=== PATIENT | female | born 1955 | race Caucasian/White ===

== ENCOUNTER 2017-11-25 18:41 | Inpatient (IN) | payer OTHER ==
[2017-11-25] MEDS ORDERED: NS 0.9% 1000 ML* 1,000 ML IV ONE (20:24)
--- NOTE | 2017-11-25 21:17 | RAD ---
Indication: Chest pain. 2 views of the chest including dual energy PA views are reviewed. Left lung field is clear. There appears to be fluid in the right fissure with a rounded mass in the right midlung field which was previously described as fluid in the major fissure. Overall this is unchanged from prior exam as well as March 22, 2013. Left lung field is clear. IMPRESSION: Right pleural effusion with right medial lung base bronchiectasis. There is loculated fluid in the major and minor fissure which has remained stable since March 22, 2013 and prior x-ray dated December 16, 2015.
[2017-11-25 22:09] LABS: ABS Basophils 0.1 10^3/ul (0-0.2); ABS Eosinophils 0 10^3/ul (0-0.6); ABS Lymphocytes 0.9 10^3/ul (1.0-4.8); ABS Monocytes 0.6 10^3/ul (0-0.8); ABS Neutrophils 6.9 10^3/ul (1.5-7.7); ABS Nucleated RBC 0 10^3/ul; Eosinophil % 0.1 % (0-6); Hematocrit 47 % (35-47); Hemoglobin 15.2 g/dl (12.0-16.0); Lymphocyte % 10.1 % (25-47); Mean Corpuscular HGB Conc 33 g/dl (31-36); Mean Corpuscular Hemoglobin 30 pg (27-31); Mean Corpuscular Volume 91 fL (80-97); Mean Platelet Volume 8.4 um3 (7.4-10.4); Nucleated Red Blood Cells % 0; Platelet Count 267 10^3/ul (150-450); Red Blood Count 5.09 10^6/ul (4.0-5.4); Red Cell Distribution Width 15 % (10.5-15); White Blood Count 8.4 10^3/ul (3.5-10.8)
--- NOTE | 2017-11-25 23:07 | ED ---
Shortness of Breath - HPI Summary HPI Summary: Complains of episode of bilateral leg weakness at the gym while warming up on a cycling machine, which brought her to the ED, and also complains of SOB at rest while here at the ED. States History of bronchitis in August with chronic but improving SOB with exertion since. States no change in Baseline chronic SOB today at gym during episode of leg weakness, but feels change in Baseline SOB while here at the ED, states SOB at rest now. Leg weakness has resolved here in the ED. Also complains of loose stools 3-4 days. Denies fever, cough , CP, sore throat, N/V, abdomen, change in urine. Med history is hypothyroid, atrial flutter, pleural fluid vision, Hodgkin's disease cleared in remission since . Nonsmoker since 2006, denies EtOH, illegal drug use. Patient on Xarelto. Denies history of blood clots, recent surgery, trauma, estrogen supplements - History of Current Complaint Chief Complaint: EDShortnessOfBreath Time Seen by Provider: 11/25/17 22:33 Hx Obtained From: Patient Onset/Duration: Sudden Onset Current Severity: Mild Dyspnea At: Rest Alleviating Factors: Bronchodilators Associated Signs & Symptoms: Negative - Risk Factors Pulmonary Embolism: Negative - Allergy/Home Medications Allergies/Adverse Reactions: Allergies Allergy/AdvReac Type Severity Reaction Status Date / Time MS Clindamycin [Clindamycin] Allergy Severe Tachycardia Verified 02/02/16 16:01 MS Dronedarone [From Multaq] Allergy Severe Anaphylatic Verified 02/02/16 16:01 Shock MS Levofloxacin Allergy Severe Itching Verified 02/02/16 16:01 [From Levaquin] MS Penicillins [PCN] Allergy Severe Airway Verified 02/02/16 16:01 Obstruction PMH/Surg Hx/FS Hx/Imm Hx Endocrine/Hematology History: Reports: Hx Thyroid Disease Cardiovascular History: Reports: Other Cardiovascular Problems/Disorders - A- flutter history of Respiratory History: Reports: Hx Pleural Effusion GI History: Reports: Hx Gastroesophageal Reflux Disease Sensory History: Reports: Hx Contacts or Glasses Opthamlomology History: Reports: Hx Contacts or Glasses Psychiatric History: Reports: Hx Post Traumatic Stress Disorder - Cancer History Cancer Type, Location and Year: hx of hodgkins lymphoma diagnosed in 1987. treated with chemo and radiation. Hx Chemotherapy: Yes Hx Radiation Therapy: Yes - Surgical History Surgery Procedure, Year, and Place: THORACOTOMY Infectious Disease History: No Infectious Disease History: Denies: Traveled Outside the [place] in Last 30 Days - Family History Known Family History: Positive: Other - Aunt/father with throat cancer - Social History Alcohol Use: None Substance Use Type: Reports: None Hx Tobacco Use: Yes Smoking Status (MU): Never Smoked Tobacco Review of Systems Constitutional: Negative Eyes: Negative ENT: Negative Cardiovascular: Negative Positive: Shortness Of Breath Gastrointestinal: Negative Genitourinary: Negative Musculoskeletal: Negative Skin: Negative Neurological: Negative Psychological: Normal All Other Systems Reviewed And Are Negative: Yes Physical Exam - Summary Physical Exam Summary: Normal neuro exam. Normal strength with flexion and extension of bilateral hips , knees, ankles Triage Information Reviewed: Yes Vital Signs On Initial Exam: Initial Vitals Temp Pulse Resp BP Pulse Ox 99.6 F 79 16 145/87 100 11/25/17 18:51 11/25/17 18:51 11/25/17 18:51 11/25/17 18:51 11/25/17 18:51 Vital Signs Reviewed: Yes Appearance: Positive: Well-Appearing Skin: Positive: Warm Head/Face: Positive: Normal Head/Face Inspection Eyes: Positive: Normal Neck: Positive: Supple Respiratory/Lung Sounds: Positive: Clear to Auscultation Cardiovascular: Positive: Normal Abdomen Description: Positive: Nontender Musculoskeletal: Positive: Normal Neurological: Positive: Normal Psychiatric: Positive: Normal AVPU Assessment: Alert - [place] Coma Scale Best Eye Response: 4 - Spontaneous Best Motor Response: 6 - Obeys Commands Best Verbal Response: 5 - Oriented Coma Scale Total: 15 Diagnostics - Vital Signs Vital Signs Temp Pulse Resp BP Pulse Ox 11/25/17 20:40 97.7 F 89 16 141/91 96 11/25/17 18:51 99.6 F 79 16 145/87 100 - Laboratory Lab Results: Lab Results 11/25/17 11/25/17 11/25/17 Range/Units 21:59 21:59 21:59 WBC 8.4 (3.5-10.8) 10^3/ul RBC 5.09 (4.0-5.4) 10^6/ul Hgb 15.2 (12.0-16.0) g/dl Hct 47 (35-47) % MCV 91 (80-97) fL MCH 30 (27-31) pg MCHC 33 (31-36) g/dl RDW 15 (10.5-15) % Plt Count 267 (150-450) 10^3/ul MPV 8.4 (7.4-10.4) um3 Neut % (Auto) 81.3 (38-83) % Lymph % (Auto) 10.1 L (25-47) % [place] % (Auto) 7.5 H (0-7) % Eos % (Auto) 0.1 (0-6) % Baso % (Auto) 1.0 (0-2) % Absolute Neuts (auto) 6.9 (1.5-7.7) 10^3/ul Absolute Lymphs (auto) 0.9 L (1.0-4.8) 10^3/ul Absolute Monos (auto) 0.6 (0-0.8) 10^3/ul Absolute Eos (auto) 0 (0-0.6) 10^3/ul Absolute Basos (auto) 0.1 (0-0.2) 10^3/ul Absolute Nucleated RBC 0 10^3/ul Nucleated RBC % 0 Sodium 135 L (139-145) mmol/L Potassium 4.3 (3.5-5.0) mmol/L Chloride 99 L (101-111) mmol/L Carbon Dioxide 27 (22-32) mmol/L Anion Gap 9 (2-11) mmol/L BUN 21 (6-24) mg/dL Creatinine 0.79 (0.51-0.95) mg/dL Est GFR ( Amer) 95.2 (>60) Est GFR (Non-Af Amer) 74.0 (>60) BUN/Creatinine Ratio 26.6 H (8-20) Glucose 153 H (70-100) mg/dL Lactic Acid 1.6 (0.5-2.0) mmol/L Calcium 9.4 (8.6-10.3) mg/dL Magnesium 2.0 (1.9-2.7) mg/dL Total Bilirubin 0.60 (0.2-1.0) mg/dL AST 29 (13-39) U/L ALT 24 (7-52) U/L Alkaline Phosphatase 25 L (34-104) U/L Troponin I 0.00 (<0.04) ng/mL Total Protein 7.4 (6.4-8.9) g/dL Albumin 4.0 (3.2-5.2) g/dL Globulin 3.4 (2-4) g/dL Albumin/Globulin Ratio 1.2 (1-3) TSH Pending Result Diagrams: 11/25/17 21:59 11/25/17 21:59 Lab Statement: Any lab studies that have been ordered have been reviewed, and results considered in the medical decision making process. - Radiology cxr Xray Interpretation: Positive (See Comments) - Stable pleural effusion right lung Radiology Interpretation Completed By: Radiologist - EKG 1 Cardiac Rate: NL EKG Rhythm: Sinus Rhythm ST Segment: Normal Ectopy: None EKG Interpretation: left bundle branch block Re-Evaluation - Re-Evaluation 1 Re-Evaluation Time: 02:12 - patient states SOB mildly improved with DuoNeb Course/Dx - Course Course Of Treatment: Patient complains of shortness of breath at rest. Patient hypoxic with PO2 of 53. O2 sats at rest still 89 after DuoNeb. Chest x-ray consistent with prior chest x-ray from 2016. Other labs unremarkable. - Diagnoses Provider Diagnoses: Hypoxia - Physician Notifications Discussed Care of Patient With: Garrison Argueta - will admit for hypoxia Time Discussed With Above Provider: 02:11 Discharge - Sign-Out/Discharge Documenting (check all that apply): Discharge/Admit/Transfer - Discharge Plan Condition: Good Disposition: ADMITTED TO [facility] Patient Education Materials: Hypoxia (ED) Referrals: Philip Chirinos MD [Primary Care Provider] - Additional Instructions: Follow-up with primary care. Return to the ED for any new or worsening symptoms - Billing Disposition and Condition Condition: GOOD Disposition: [facility] [place]
[2017-11-26] MEDS ORDERED: Furosemide IV* 10 MG/ML VIAL (40 MG) IV ONE (00:33)
[2017-11-26] MEDS ORDERED: Albuterol/Ipratropium NEB.SOL* Albuterol 2.5 MG/Ipratropium 0.5 MG 3 ML INH ONE (01:14)
[2017-11-26] MEDS ORDERED: Albuterol 2.5 MG/3 ML NEB.SOL* (0.083%) INH PRN (03:15)
[2017-11-26] MEDS ORDERED: Acetaminophen TAB* 325 MG PO PRN (03:15)
[2017-11-26 03:34] LABS: Urine Appearance Clear; Urine Blood Negative (Negative); Urine Color Straw; Urine Ketones Trace (Negative); Urine Protein Negative (Negative); Urine Specific Gravity 1.004 (1.010-1.030); Urine Urobilinogen Negative (Negative)
--- NOTE | 2017-11-26 03:45 | HP ---
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 She continued through the week with gradually worsening SOB until today when she developed SOB, BLE weakness, and shakiness after only 5 minutes at the gym during her initial warm up causing her enough concern to present for evaluation. She denies chest pain, N/V, sweats, F/C, cough, congestion, palpitations, or light-headedness. She has had loose stools over the past few days, but denies black/bloody aspect. She received an albuterol [place] in ED which helped her subjective SOB significantly, but did not alleviate her new oxygen requirement. PMedHx AFIB hypothyroidism GERD anxiety LUE lymphedema Hodgkin's lymphoma in remission Sujit's syndrome Ambulatory Orders Nursing to reconcile. Amitriptyline TAB* [Elavil TAB*] 1 mg PO BEDTIME 03/18/13 clonazePAM TAB(*) [Klonopin TAB(*)] 1 mg PO BEDTIME 03/18/13 [place]-3/Dha/Epa/Fish Oil [[place]-3 Fish Oil] 2 cap PO DAILY 04/05/13 Dofetilide CAP* [Tikosyn CAP*] 250 mcg PO BID 12/16/15 Levothyroxine TAB* [Synthroid TAB*] 75 mcg PO DAILY 12/16/15 Metoprolol Tartrate TAB* [Lopressor TAB*] 50 mg PO BID 12/16/15 Multivitamins/Minerals TAB* [Theragran/minerals TAB*] 1 tab PO DAILY 12/16/15 Rivaroxaban TAB(*) [Xarelto(*)] 15 mg PO DAILY 12/16/15 Clotrimazole 1% CREAM* [Clotrimazole 1%*] 1 applic TOPICAL BID #1 tube 02/02/16 predniSONE TAB* [Deltasone TAB*] 40 mg PO DAILY #8 tab 04/16/16 Allergies MS Dronedarone [From Multaq] Allergy (Severe, Verified 02/02/16 16:01) Anaphylatic Shock MS Penicillins [PCN] Allergy (Severe, Verified 11/26/17 03:05) Anaphylatic Shock MS Levofloxacin [From Levaquin] Allergy (Mild, Verified 11/26/17 03:05) Itching MS Clindamycin [Clindamycin] Adverse Reaction (Severe, Verified 11/26/17 03:05) Tachycardia PSurgHx L axillary lymph node excision w/ subsequent LUE lymphedema staging laparotomy appendectomy SocHx: former smoker w/ 20PYHX, rare alcohol, marijuana oil; ; full code status FamHx: positive for early onset CAD ROS: as above, otherwise reviewed and all were negative vitals: Vital Signs Temp 36.4 C 11/26/17 07:18 Pulse 88 11/26/17 07:25 Resp 15 11/26/17 07:25 BP 127/60 11/26/17 07:18 Pulse Ox 98 11/26/17 07:25 Intake & Output 11/25/17 11/25/17 11/26/17 11:59 23:59 11:59 Intake Total 0 Output Total 0 Balance 0 Weight 77.111 kg 74.117 kg Intake: Oral 0 Output: Urine 0 Other: # Bowel Movements 0 Constitutional: NAD, normally developed, overweight white female HEENM: atraumatic; sclera/conjunctiva: anicteric/clear; hearing: clinically intact; oropharynx: clear, mucosa moist Neck: soft tissue: non-tender; thyroid: normal Pulmonary: clear to auscultation bilaterally, good aeration, no accessory muscle use CV: RR/RR, normal S1S2, no carotid bruit, no jugular venous distention, 2+ B DP/ PT, trace BLE edema, chronic LUE lymphedema Abdominal: soft, non-distended, non-tender, no rebound/guarding/rigidity, normoactive bowel sounds, no hepatosplenomegaly or masses, no costovertebral angle tenderness Musculoskeletal: general: grossly intact, non-tender Integumental: normal appearance and texture of exposed skin Psychiatric orientation: AA&O to PPS affect: calm mood: cooperative eye contact: fair content: reliable responses: timely insight: good Testing: Lab Results 11/25/17 11/25/17 11/25/17 Range/Units 21:59 21:59 21:59 WBC 8.4 (3.5-10.8) 10^3/ul RBC 5.09 (4.0-5.4) 10^6/ul Hgb 15.2 (12.0-16.0) g/dl Hct 47 (35-47) % MCV 91 (80-97) fL MCH 30 (27-31) pg MCHC 33 (31-36) g/dl RDW 15 (10.5-15) % Plt Count 267 (150-450) 10^3/ul MPV 8.4 (7.4-10.4) um3 Neut % (Auto) 81.3 (38-83) % Lymph % (Auto) 10.1 L (25-47) % [place] % (Auto) 7.5 H (0-7) % Eos % (Auto) 0.1 (0-6) % Baso % (Auto) 1.0 (0-2) % Absolute Neuts (auto) 6.9 (1.5-7.7) 10^3/ul Absolute Lymphs (auto) 0.9 L (1.0-4.8) 10^3/ul Absolute Monos (auto) 0.6 (0-0.8) 10^3/ul Absolute Eos (auto) 0 (0-0.6) 10^3/ul Absolute Basos (auto) 0.1 (0-0.2) 10^3/ul Absolute Nucleated RBC 0 10^3/ul Nucleated RBC % 0 ABG pH (7.35-7.45) ABG pCO2 (35-45) mmHg ABG pO2 (80-100) mmHg ABG HCO3 (19-31) mmol/L ABG O2 Saturation (95-98) % ABG Base Excess (-2.0-2.0) Sodium 135 L (139-145) mmol/L Potassium 4.3 (3.5-5.0) mmol/L Chloride 99 L (101-111) mmol/L Carbon Dioxide 27 (22-32) mmol/L Anion Gap 9 (2-11) mmol/L BUN 21 (6-24) mg/dL Creatinine 0.79 (0.51-0.95) mg/dL Est GFR ( Amer) 95.2 (>60) Est GFR (Non-Af Amer) 74.0 (>60) BUN/Creatinine Ratio 26.6 H (8-20) Glucose 153 H (70-100) mg/dL Lactic Acid 1.6 (0.5-2.0) mmol/L Calcium 9.4 (8.6-10.3) mg/dL Magnesium 2.0 (1.9-2.7) mg/dL Total Bilirubin 0.60 (0.2-1.0) mg/dL AST 29 (13-39) U/L ALT 24 (7-52) U/L Alkaline Phosphatase 25 L (34-104) U/L Troponin I 0.00 (<0.04) ng/mL Total Protein 7.4 (6.4-8.9) g/dL Albumin 4.0 (3.2-5.2) g/dL Globulin 3.4 (2-4) g/dL Albumin/Globulin Ratio 1.2 (1-3) TSH 2.16 (0.34-5.60) mcIU/mL Urine Color Urine Appearance Urine pH (5-9) Ur Specific [place] (1.010-1.030) Urine Protein (Negative) Urine Ketones (Negative) Urine Blood (Negative) Urine Nitrate (Negative) Urine Bilirubin (Negative) Urine Urobilinogen (Negative) Ur Leukocyte Esterase (Negative) Urine Glucose (Negative) Influenza A (Rapid) (Negative) Influenza B (Rapid) (Negative) 11/26/17 11/26/17 11/26/17 Range/Units 00:55 03:26 04:28 WBC (3.5-10.8) 10^3/ul RBC (4.0-5.4) 10^6/ul Hgb (12.0-16.0) g/dl Hct (35-47) % MCV (80-97) fL MCH (27-31) pg MCHC (31-36) g/dl RDW (10.5-15) % Plt Count (150-450) 10^3/ul MPV (7.4-10.4) um3 Neut % (Auto) (38-83) % Lymph % (Auto) (25-47) % [place] % (Auto) (0-7) % Eos % (Auto) (0-6) % Baso % (Auto) (0-2) % Absolute Neuts (auto) (1.5-7.7) 10^3/ul Absolute Lymphs (auto) (1.0-4.8) 10^3/ul Absolute Monos (auto) (0-0.8) 10^3/ul Absolute Eos (auto) (0-0.6) 10^3/ul Absolute Basos (auto) (0-0.2) 10^3/ul Absolute Nucleated RBC 10^3/ul Nucleated RBC % ABG pH 7.38 (7.35-7.45) ABG pCO2 38 (35-45) mmHg ABG pO2 53 L* (80-100) mmHg ABG HCO3 22.8 (19-31) mmol/L ABG O2 Saturation 89.2 L (95-98) % ABG Base Excess -2.2 L (-2.0-2.0) Sodium (139-145) mmol/L Potassium (3.5-5.0) mmol/L Chloride (101-111) mmol/L Carbon Dioxide (22-32) mmol/L Anion Gap (2-11) mmol/L BUN (6-24) mg/dL Creatinine (0.51-0.95) mg/dL Est GFR ( Amer) (>60) Est GFR (Non-Af Amer) (>60) BUN/Creatinine Ratio (8-20) Glucose (70-100) mg/dL Lactic Acid (0.5-2.0) mmol/L Calcium (8.6-10.3) mg/dL Magnesium (1.9-2.7) mg/dL Total Bilirubin (0.2-1.0) mg/dL AST (13-39) U/L ALT (7-52) U/L Alkaline Phosphatase (34-104) U/L Troponin I (<0.04) ng/mL Total Protein (6.4-8.9) g/dL Albumin (3.2-5.2) g/dL Globulin (2-4) g/dL Albumin/Globulin Ratio (1-3) TSH (0.34-5.60) mcIU/mL Urine Color Straw Urine Appearance Clear Urine pH 6.0 (5-9) Ur Specific [place] 1.004 L (1.010-1.030) Urine Protein Negative (Negative) Urine Ketones Trace A (Negative) Urine Blood Negative (Negative) Urine Nitrate Negative (Negative) Urine Bilirubin Negative (Negative) Urine Urobilinogen Negative (Negative) Ur Leukocyte Esterase Negative (Negative) Urine Glucose Negative (Negative) Influenza A (Rapid) Negative (Negative) Influenza B (Rapid) Negative (Negative) ECG, personally reviewed: sinus LBBB rate 79 CXR, personally reviewed: IMPRESSION: Right pleural effusion with right medial lung base bronchiectasis. There is loculated fluid in the major and minor fissure which has remained stable since March 22, 2013 and prior x-ray dated December 16, 2015. Impression: 62F presenting with acute hypoxyic respiratory failure suspected to be multifactorial 2nd mild undiagnosed COPD & HX radiation for Hodgkin's lymphoma DIAGNOSIS & PLAN Primary acute hypoxic respiratory failure, suspect mild undiagnosed COPD : albuterol : mometasone/formoterol : tiotropium : IV methylprednisolone : supplemental oxygen : supportive care Secondary AFIB : review meds once reconciled : continue rivaroxaban once reconciled hypothyroidism : review meds once reconciled GERD : review meds once reconciled anxiety : review meds once reconciled Hodgkin's lymphoma in remission w/ 2nd LUE lymphedema & Sujit's syndrome : no acute issues Admission Rational: inpatient for acute hypoxic respiratory failure of uncertain etiology; inappropriate for outpatient setting DVTp: continue rivaroxaban once reconciled Code Status: full HCP: [email or web address]
[2017-11-26] MEDS ORDERED: Ondansetron ODT TAB* 4 MG PO PRN (04:26)
[2017-11-26] MEDS ORDERED: CMCS: Melatonin (NF) 3 MG TAB PO PRN (04:26)
[2017-11-26] MEDS ORDERED: methylPREDNISolone 125 MG* 2 ML VIAL IV ONE (04:26)
[2017-11-26] MEDS: clonazePAM TAB(*) 1 MG PO SCH ×2 (07:09→23:51)
[2017-11-26] MEDS: Omeprazole CAP* 20 MG PO SCH (07:16)
[2017-11-26] MEDS: Levothyroxine TAB* 75 MCG TAB PO SCH (07:16)
[2017-11-26] MEDS: Albuterol 2.5 MG/3 ML NEB.SOL* (0.083%) INH SCH ×3 (07:24→21:30)
[2017-11-26] MEDS: NS 0.9% 1000 ML* 1,000 ML IV SCH (07:31)
[2017-11-26 08:23] LABS: ABS Basophils 0.1 10^3/ul (0-0.2); ABS Eosinophils 0 10^3/ul (0-0.6); ABS Lymphocytes 0.6 10^3/ul (1.0-4.8); ABS Monocytes 0.3 10^3/ul (0-0.8); ABS Neutrophils 11.1 10^3/ul (1.5-7.7); ABS Nucleated RBC 0 10^3/ul; Eosinophil % 0 % (0-6); Hematocrit 49 % (35-47); Hemoglobin 16.1 g/dl (12.0-16.0); Lymphocyte % 4.7 % (25-47); Mean Corpuscular HGB Conc 33 g/dl (31-36); Mean Corpuscular Hemoglobin 30 pg (27-31); Mean Corpuscular Volume 91 fL (80-97); Mean Platelet Volume 8.3 um3 (7.4-10.4); Nucleated Red Blood Cells % 0; Platelet Count 284 10^3/ul (150-450); Red Blood Count 5.32 10^6/ul (4.0-5.4); Red Cell Distribution Width 15 % (10.5-15)
[2017-11-26 08:29] LABS: EGFR Non-African American 86.5 (>60)
[2017-11-26] MEDS: Tiotropium CAP.INH* CAP.INH/18 MCG (USE ORDER SET !) INH SCH (08:40)
[2017-11-26] MEDS: Mometasone/Formoter 200/5 MDI INH SCH ×2 (08:41→21:31)
[2017-11-26] MEDS ORDERED: Spiriva Inhaler DEVICE* 1 EACH DEVICE INH ONE (09:00)
[2017-11-26] MEDS: Dofetilide CAP* 250 MCG PO SCH ×2 (09:57→23:15)
[2017-11-26] MEDS: Metoprolol Tartrate TAB* 50 mg PO SCH ×2 (09:57→22:33)
[2017-11-26] MEDS: Docusate CAP* 100 MG PO SCH ×2 (09:57→23:17)
[2017-11-26] MEDS: Rivaroxaban TAB(*) 15 MG PO SCH (09:57)
--- NOTE | 2017-11-26 11:14 | PN ---
Subjective Date of Service: 11/26/17 Interval History: Patient seen and examined. States she feels her breathing is better today, remains on oxygen and unable to wean. Denies chest pain, no n/v, no fever or headache. Objective Active Medications: Acetaminophen (Tylenol Tab*) 650 mg PO Q6H PRN PRN Reason: FEVER/PAIN Albuterol (Ventolin 2.5 Mg/3 Ml Neb.Rose*) 2.5 mg INH Q2H PRN PRN Reason: SOB/WHEEZING Albuterol (Ventolin 2.5 Mg/3 Ml Neb.Rose*) 2.5 mg INH [id number] AWAKE [facility] Last Admin: 11/26/17 07:24 Dose: 2.5 mg Amitriptyline HCl (Elavil Tab*) 1 mg PO BEDTIME ÁLVARO Clonazepam (Klonopin Tab(*)) 1 mg PO BEDTIME [facility] Last Admin: 11/26/17 07:09 Dose: Not Given Docusate Sodium (Colace Cap*) 200 mg PO BID [facility] Last Admin: 11/26/17 09:57 Dose: Not Given Dofetilide (Tikosyn Cap*) 250 mcg PO BID [facility] Last Admin: 11/26/17 09:57 Dose: Not Given Sodium Chloride (Ns 0.9% 1000 Ml*) 1,000 mls @ 50 mls/hr IV PER RATE [facility] Last Admin: 11/26/17 07:31 Dose: 50 mls/hr Levothyroxine Sodium (Synthroid Tab*) 75 mcg PO 0600 [facility] Last Admin: 11/26/17 07:16 Dose: 75 mcg Melatonin (Melatonin (Nf)) 3 mg PO BEDTIME PRN; Protocol PRN Reason: Sleep Methylprednisolone Sodium Succinate (Solu-Medrol 40 Mg) 40 mg IV Q8H [facility] Metoprolol Tartrate (Lopressor Tab*) 50 mg PO BID [facility] Last Admin: 11/26/17 09:57 Dose: Not Given Mometasone Furoate/Formoterol Fumar (Dulera 200/5 Mdi*) 2 puff INH BID [facility] Last Admin: 11/26/17 08:41 Dose: 2 puff Omeprazole (Prilosec Cap*) 20 mg PO DAILY@0600 [facility] Last Admin: 11/26/17 07:16 Dose: 20 mg Ondansetron HCl (Zofran Odt Tab*) 4 mg PO Q6H PRN PRN Reason: n/v Rivaroxaban (Xarelto(*)) 15 mg PO DAILY [facility] Last Admin: 11/26/17 09:57 Dose: 15 mg Tiotropium [place] (Spiriva Cap.Inh*) 1 cap INH DAILY [facility] Last Admin: 11/26/17 08:40 Dose: 1 cap Vital Signs - 8 hr 11/26/17 11/26/17 11/26/17 04:00 04:56 05:23 Temperature 97.9 F 97.5 F Pulse Rate 86 83 81 Respiratory 26 18 18 Rate Blood Pressure 121/80 125/60 (mmHg) O2 Sat by Pulse 91 93 100 Oximetry 11/26/17 11/26/17 11/26/17 07:18 07:25 08:00 Temperature 97.6 F Pulse Rate 83 88 Respiratory 16 15 16 Rate Blood Pressure 127/60 (mmHg) O2 Sat by Pulse 100 98 Oximetry Oxygen Devices in Use Now: Nasal Cannula Appearance: Alert, NAD Eyes: PERRLA Ears/Nose/Mouth/Throat: NL Teeth, Lips, Gums, Mucous Membranes Moist Neck: NL Appearance and Movements; NL JVP, Trachea Midline Respiratory: Symmetrical Chest Expansion and Respiratory Effort, - - diminished bases, R>L, no wheeze or rhonchi Cardiovascular: NL Sounds; No Murmurs; No JVD, RRR, - Extremities: - - LUE lymphedema at baseline Skin: No Rash or Ulcers Neurological: Alert and Oriented x 3 Nutrition: Taking PO's Result Diagrams: 11/26/17 08:01 11/26/17 08:01 Additional Lab and Data: Lab Results 11/25/17 11/25/17 11/25/17 Range/Units 21:59 21:59 21:59 WBC 8.4 (3.5-10.8) 10^3/ul RBC 5.09 (4.0-5.4) 10^6/ul Hgb 15.2 (12.0-16.0) g/dl Hct 47 (35-47) % MCV 91 (80-97) fL MCH 30 (27-31) pg MCHC 33 (31-36) g/dl RDW 15 (10.5-15) % Plt Count 267 (150-450) 10^3/ul MPV 8.4 (7.4-10.4) um3 Neut % (Auto) 81.3 (38-83) % Lymph % (Auto) 10.1 L (25-47) % [place] % (Auto) 7.5 H (0-7) % Eos % (Auto) 0.1 (0-6) % Baso % (Auto) 1.0 (0-2) % Absolute Neuts (auto) 6.9 (1.5-7.7) 10^3/ul Absolute Lymphs (auto) 0.9 L (1.0-4.8) 10^3/ul Absolute Monos (auto) 0.6 (0-0.8) 10^3/ul Absolute Eos (auto) 0 (0-0.6) 10^3/ul Absolute Basos (auto) 0.1 (0-0.2) 10^3/ul Absolute Nucleated RBC 0 10^3/ul Nucleated RBC % 0 Sodium 135 L (139-145) mmol/L Potassium 4.3 (3.5-5.0) mmol/L Chloride 99 L (101-111) mmol/L Carbon Dioxide 27 (22-32) mmol/L Anion Gap 9 (2-11) mmol/L BUN 21 (6-24) mg/dL Creatinine 0.79 (0.51-0.95) mg/dL Est GFR ( Amer) 95.2 (>60) Est GFR (Non-Af Amer) 74.0 (>60) BUN/Creatinine Ratio 26.6 H (8-20) Glucose 153 H (70-100) mg/dL Lactic Acid 1.6 (0.5-2.0) mmol/L Calcium 9.4 (8.6-10.3) mg/dL Magnesium 2.0 (1.9-2.7) mg/dL Total Bilirubin 0.60 (0.2-1.0) mg/dL AST 29 (13-39) U/L ALT 24 (7-52) U/L Alkaline Phosphatase 25 L (34-104) U/L Troponin I 0.00 (<0.04) ng/mL Total Protein 7.4 (6.4-8.9) g/dL Albumin 4.0 (3.2-5.2) g/dL Globulin 3.4 (2-4) g/dL Albumin/Globulin Ratio 1.2 (1-3) TSH Pending Microbiology and Other Data: Microbiology 11/26/17 04:30 Influenza Types A,B Antigen (IMELDA) - Final Nasal Specimen received for Influenza A/B Molecular testing Diagnostic Imaging: Patient Name: MINE PATEL Medical Record#: [id number] Ordering Physician: James Mahan MD Acct.#: [id number] : 1955 Age: 62 Sex: F Location: EMERGENCY DEPARTMENT Exam Date: 11/25/172024 ADM Status: REG ER Order Information: CHEST PA & LAT 2 VWS Accession Number: [id number] CPT: 69273 Indication: Chest pain. 2 views of the chest including dual energy PA views are reviewed. Left lung field is clear. There appears to be fluid in the right fissure with a rounded mass in the right midlung field which was previously described as fluid in the major fissure. Overall this is unchanged from prior exam as well as March 22, 2013. Left lung field is clear. IMPRESSION: Right pleural effusion with right medial lung base bronchiectasis. There is loculated fluid in the major and minor fissure which has remained stable since March 22, 2013 and prior x-ray dated December 16, 2015. <Electronically signed by Roseann Ronquillo MD in OV> 11/25/172113 Dictated By: Roseann Ronquillo MD Dictated Date/Time: 11/25/172113 Transcribed Date/Time: 11/25/172110 Copy to: CC:[facility]; James Mahan MD; Philip Chirinos MD Imaging - [facility] Imaging - [facility] Imaging - [facility] [address] [address] ph [phone]) ph ([phone]) ph ([phone]) Assess/Plan/Problems-Billing Assessment: This is a 62 year old female with history of lymphoma, radiation tx, chronic right pleural effusion and chronic lymphedema that presents to ER with acute hypoxic respiratory failure. - Patient Problems (1) Acute respiratory failure with hypoxia Code(s): J96.01 - ACUTE RESPIRATORY FAILURE WITH HYPOXIA SNOMED Code(s): 35954685 Comment: - CXR as above, appears stable - May be component of COPD 2/2 hx of smoking, but also has extensive history of loculated pleural effusion, chest tube and chest radiation - Continue IV steroids, inhalers and pulmonary toilet - Patient states she had "valve" issues in the past, will send for ECHO to r/o any further pathology - May need pulmonology consult if unable to wean off O2 (2) History of Hodgkin's lymphoma Current Visit: Yes Status: Acute Code(s): Z85.71 - PERSONAL HISTORY OF HODGKIN LYMPHOMA SNOMED Code(s): 616106486 (3) Atrial fibrillation Code(s): I48.91 - UNSPECIFIED ATRIAL FIBRILLATION SNOMED Code(s): 82904088 Comment: - On tikosyn and metoprolol, stable (4) Hypothyroid Current Visit: Yes Status: Acute Code(s): E03.9 - HYPOTHYROIDISM, UNSPECIFIED SNOMED Code(s): 05158852 (5) Anxiety Code(s): F41.9 - ANXIETY DISORDER, UNSPECIFIED SNOMED Code(s): 99133905 Comment: - Takes klonopin for sleep (6) DVT prophylaxis Code(s): PVR8428 - SNOMED Code(s): 535717826 Comment: - HSQ (7) Full code status Code(s): Z78.9 - OTHER SPECIFIED HEALTH STATUS SNOMED Code(s): 232249216 Status and Disposition: Remain inpatient.
[2017-11-26] MEDS ORDERED: Perflutren Lipid Microsphere* 3 ML VIAL ONE (15:11)
--- NOTE | 2017-11-26 16:58 | ECHO ---
Patient: MINE PATEL [facility] Rec#: [id number] : 1955 Date: 11/26/2017 Age: 62y Height: 167.64 cm / 66.0 in Weight: 73.94 kg / 163.0 lbs Sex: F BSA: 1.83 Room#: 408 Admit Date#: 11/26/2017 Type: Inpatient Referring: Debra Shah Reading: Antonino Miller MD Actuarial Intern: Marialuisa Bhatt RDCS CC: Philip Chirinos MD Transthoracic Echocardiogram Indication: Dyspnea BP: 127/60 HR: 104 Rhythm: Tachycardia Findings History: A-fib, hyopthyroidism, GERD, left upper extremity lymphedema, Hodgkin's lymphoma in remission, Sujit's syndrome, former smoker, COPD, s/p chemotherapy and radiation. Technical Comments: The study is technically difficult. The study is technically limited due to poor acoustic windows. Patient unable to lay in left lateral decubitus due to breathing difficulty. Left Ventricle: The left ventricular chamber size is normal. Global left ventricular wall motion and contractility are within normal limits. There is normal left ventricular systolic function. The estimated ejection fraction is 50-55%. The assessment of diastolic function is non-diagnostic. Left Atrium: The left atrial chamber size is normal. Right Ventricle: The right ventricle is not well visualized.but appears grossly normal in size and function. Right Atrium: The right atrium is mildly dilated. Aortic Valve: The aortic valve structure is not well visualized. Mild aortic leaflet calcification is visualized. There is a trace of aortic regurgitation. There is no evidence of aortic stenosis.by gradient analysis. The mean gradient of the aortic valve is 5.71 mmHg. The peak instantaneous gradient of the aortic valve is 8.99 mmHg. Mitral Valve: There is mitral annular calcification. The mitral valve leaflets are moderately thickened. There is mild to moderate mitral regurgitation. There is no evidence of mitral stenosis. Tricuspid Valve: The tricuspid valve structure is not well visualized. There is mild tricuspid regurgitation. No pulmonary hypertension is noted. Pulmonic Valve: The pulmonic valve structure is not well visualized. There is no evidence of pulmonic regurgitation. There is no pulmonic stenosis. Pericardium: There is no significant pericardial effusion. A pericardial fat pad is visualized. Aorta: There is no dilatation of the ascending aorta. There is no dilatation of the aortic arch. The aortic root is normal in size. Pulmonary Artery: The main pulmonary artery is not well visualized. Venous: The inferior vena cava appears normal in size. There is a greater than 50% respiratory change in the inferior vena cava dimension. Contrast: Definity was used to optimize study. 4 mL of diluted Definity was utilized. Intravenous contrast was used to enhance endocardial border definition. Conclusions There is normal left ventricular systolic function. The estimated ejection fraction is 50-55%. Global left ventricular wall motion and contractility are within normal limits. The right atrium is mildly dilated. There is mild to moderate mitral regurgitation. There is mild tricuspid regurgitation (TR). Since the prior echocardiogram completed 04/21/13, pertinent change is prior TR graded moderate. Measurements Name Value Normal Range RVIDd (AP) 2D 2.5 cm (0.9 - 2.6) RAd ISD 4CH 5.2 cm (3.4 - 4.9) RA (A4C)W 4.5 cm (2.9 - 4.6) IVSd (2D) 1 cm (0.6 - 1) LVPWd (2D) 0.9 cm (0.6 - 1) LVIDd (2D) 3.8 cm (3.6 - 5.4) LVIDs (2D) 3.1 cm - Aortic Annulus 1.9 cm (1.4 - 2.6) Ao root diameter (2D) 3.3 cm (2.1 - 3.5) Ascending Ao 3.1 cm (2.1 - 3.4) Aortic arch 2 cm (1.8 - 3.4) LA dimension (AP) 2D 2.5 cm (2.3 - 3.8) LAd ISD 4CH 5.3 cm (2.9 - 5.3) LA ISD 4CH W 4 cm (2.5 - 4.5) Name Value Normal Range LA ESV SP 4CH (A/L) 58 ml - LA ESV SP 2CH (A/L) 51 ml - LA ESV BP (A/L) 55 ml - LA ESV BP (A/L) index 30 ml/m2 - LA ESV SP 4CH (MOD) 52 ml - LA ESV SP 2CH (MOD) 49 ml - Name Value Normal Range MV E-wave Vmax 1.43 m/sec - MV deceleration time 179.8 msec - MV A-wave Vmax 0.86 m/sec - MV E:A ratio 1.65 ratio - LV septal e' Vmax 0.04 m/sec - LV lateral e' Vmax 0.06 m/sec - LV E:e' septal ratio 35.75 ratio - LV E:e' lateral ratio 23.83 ratio - Name Value Normal Range AV Vmax 1.5 m/sec - AV VTI 32.26 cm - AV peak gradient 8.99 mmHg - AV mean gradient 5.71 mmHg - LVOT diameter 2 cm - LVOT Vmax 0.59 m/sec - LVOT VTI 10.53 cm - LVOT peak gradient 1.41 mmHg - LVOT mean gradient 0.79 mmHg - DOI (VTI) 0.32 ratio - [place] Vmax 0.76 m/sec - Name Value Normal Range MV Vmax 1.5 m/sec - MV VTI 23.32 cm - MV peak gradient 9 mmHg - MV mean gradient 3.2 mmHg - MV PHT 58.7 msec - MR Vmax 3.72 m/sec - MR VTI 93.49 cm - MR flow (PISA) 94.04 ml/sec - MR ERO 0.25 cm2 - MR PISA radius 0.6 cm - MR alias Vmax 38 cm/sec - MVA (PHT) 3.74 cm2 - MVA (continuity VTI) 1.45 cm2 - Name Value Normal Range TR Vmax 2.7 m/sec - TR peak gradient 29 mmHg - RAP 3 mmHg - RVSP 32 mmHg - IVC diameter 2.1 cm - Name Value Normal Range PV Vmax 0.69 m/sec - PV peak gradient 1.91 mmHg -
[2017-11-26] MEDS: Amitriptyline TAB* 10 MG PO SCH (23:56)
[2017-11-27] MEDS: Albuterol 2.5 MG/3 ML NEB.SOL* (0.083%) INH SCH ×2 (01:34→07:15)
[2017-11-27] MEDS: NS 0.9% 1000 ML* 1,000 ML IV SCH (04:12)
[2017-11-27] MEDS: Levothyroxine TAB* 75 MCG TAB PO SCH (06:16)
[2017-11-27] MEDS: Omeprazole CAP* 20 MG PO SCH (06:16)
[2017-11-27] MEDS: Tiotropium CAP.INH* CAP.INH/18 MCG (USE ORDER SET !) INH SCH (07:15)
[2017-11-27] MEDS: Mometasone/Formoter 200/5 MDI INH SCH ×2 (07:15→19:35)
[2017-11-27] MEDS ORDERED: NS 0.9% 500 ML* 500 ML IV ONE (08:39)
[2017-11-27] MEDS: Metoprolol Tartrate TAB* 50 mg PO SCH (09:00)
[2017-11-27] MEDS: Rivaroxaban TAB(*) 15 MG PO SCH (09:00)
[2017-11-27] MEDS: Docusate CAP* 100 MG PO SCH ×2 (09:00→19:47)
[2017-11-27] MEDS: Dofetilide CAP* 250 MCG PO SCH ×2 (09:00→20:49)
[2017-11-27] MEDS: methylPREDNISolone SOD 40 MG* 1 ML VIAL IV SCH ×2 (11:02→20:52)
--- NOTE | 2017-11-27 16:49 | PN ---
Subjective Date of Service: 11/27/17 Interval History: Patient seen and examined. Had some additional hypotension today with mild tachycardia. Denies any chest pain or dizziness, remains asymptomatic. No cough , fever or chills. Objective Active Medications: Acetaminophen (Tylenol Tab*) 650 mg PO Q6H PRN PRN Reason: FEVER/PAIN Albuterol (Ventolin 2.5 Mg/3 Ml Neb.Rose*) 2.5 mg INH Q2H PRN PRN Reason: SOB/WHEEZING Amitriptyline HCl (Elavil Tab*) 1 mg PO BEDTIME [facility] Last Admin: 11/26/17 23:56 Dose: 1 mg Docusate Sodium (Colace Cap*) 200 mg PO BID [facility] Last Admin: 11/27/17 09:00 Dose: Not Given Dofetilide (Tikosyn Cap*) 250 mcg PO BID [facility] Last Admin: 11/27/17 09:00 Dose: 250 mcg Sodium Chloride (Ns 0.9% 1000 Ml*) 1,000 mls @ 50 mls/hr IV PER RATE [facility] Last Admin: 11/27/17 04:12 Dose: 50 mls/hr Levothyroxine Sodium (Synthroid Tab*) 75 mcg PO 0600 [facility] Last Admin: 11/27/17 06:16 Dose: 75 mcg Melatonin (Melatonin (Nf)) 3 mg PO BEDTIME PRN; Protocol PRN Reason: Sleep Methylprednisolone Sodium Succinate (Solu-Medrol 40 Mg) 40 mg IV Q8H [facility] Last Admin: 11/27/17 11:02 Dose: 40 mg Metoprolol Tartrate (Lopressor Tab*) 50 mg PO BID [facility] Last Admin: 11/27/17 09:00 Dose: 50 mg Mometasone Furoate/Formoterol Fumar (Dulera 200/5 Mdi*) 2 puff INH BID [facility] Last Admin: 11/27/17 07:15 Dose: 2 puff Omeprazole (Prilosec Cap*) 20 mg PO DAILY@0600 [facility] Last Admin: 11/27/17 06:16 Dose: 20 mg Ondansetron HCl (Zofran Odt Tab*) 4 mg PO Q6H PRN PRN Reason: n/v Rivaroxaban (Xarelto(*)) 15 mg PO DAILY [facility] Last Admin: 11/27/17 09:00 Dose: 15 mg Tiotropium [place] (Spiriva Cap.Inh*) 1 cap INH DAILY [facility] Last Admin: 11/27/17 07:15 Dose: 1 cap Vital Signs - 8 hr 11/27/17 11/27/17 11:58 12:01 Temperature 97.7 F Pulse Rate 73 75 Respiratory 17 Rate Blood Pressure 86/63 98/60 (mmHg) O2 Sat by Pulse 96 Oximetry Oxygen Devices in Use Now: Nasal Cannula Appearance: Alert, NAD Eyes: PERRLA Ears/Nose/Mouth/Throat: NL Teeth, Lips, Gums, Mucous Membranes Moist Neck: NL Appearance and Movements; NL JVP, Trachea Midline Respiratory: Symmetrical Chest Expansion and Respiratory Effort, - - diminished right , no wheeze Cardiovascular: NL Sounds; No Murmurs; No JVD, RRR Abdominal: NL Sounds; No Tenderness; No Distention Extremities: No Edema Skin: No Rash or Ulcers Neurological: Alert and Oriented x 3, NL Sensation, NL Gait Nutrition: Taking PO's Result Diagrams: 11/26/17 08:01 11/26/17 08:01 Additional Lab and Data: Lab Results 11/25/17 11/25/17 11/25/17 Range/Units 21:59 21:59 21:59 WBC 8.4 (3.5-10.8) 10^3/ul RBC 5.09 (4.0-5.4) 10^6/ul Hgb 15.2 (12.0-16.0) g/dl Hct 47 (35-47) % MCV 91 (80-97) fL MCH 30 (27-31) pg MCHC 33 (31-36) g/dl RDW 15 (10.5-15) % Plt Count 267 (150-450) 10^3/ul MPV 8.4 (7.4-10.4) um3 Neut % (Auto) 81.3 (38-83) % Lymph % (Auto) 10.1 L (25-47) % Sac % (Auto) 7.5 H (0-7) % Eos % (Auto) 0.1 (0-6) % Baso % (Auto) 1.0 (0-2) % Absolute Neuts (auto) 6.9 (1.5-7.7) 10^3/ul Absolute Lymphs (auto) 0.9 L (1.0-4.8) 10^3/ul Absolute Monos (auto) 0.6 (0-0.8) 10^3/ul Absolute Eos (auto) 0 (0-0.6) 10^3/ul Absolute Basos (auto) 0.1 (0-0.2) 10^3/ul Absolute Nucleated RBC 0 10^3/ul Nucleated RBC % 0 Sodium 135 L (139-145) mmol/L Potassium 4.3 (3.5-5.0) mmol/L Chloride 99 L (101-111) mmol/L Carbon Dioxide 27 (22-32) mmol/L Anion Gap 9 (2-11) mmol/L BUN 21 (6-24) mg/dL Creatinine 0.79 (0.51-0.95) mg/dL Est GFR ( Amer) 95.2 (>60) Est GFR (Non-Af Amer) 74.0 (>60) BUN/Creatinine Ratio 26.6 H (8-20) Glucose 153 H (70-100) mg/dL Lactic Acid 1.6 (0.5-2.0) mmol/L Calcium 9.4 (8.6-10.3) mg/dL Magnesium 2.0 (1.9-2.7) mg/dL Total Bilirubin 0.60 (0.2-1.0) mg/dL AST 29 (13-39) U/L ALT 24 (7-52) U/L Alkaline Phosphatase 25 L (34-104) U/L Troponin I 0.00 (<0.04) ng/mL Total Protein 7.4 (6.4-8.9) g/dL Albumin 4.0 (3.2-5.2) g/dL Globulin 3.4 (2-4) g/dL Albumin/Globulin Ratio 1.2 (1-3) TSH Pending Microbiology and Other Data: Microbiology 11/26/17 04:30 Influenza Types A,B Antigen (IMELDA) - Final Nasal Specimen received for Influenza A/B Molecular testing Diagnostic Imaging: Patient Name: MINE PATEL Medical Record#: [id number] Ordering Physician: James Mahan MD Acct.#: [id number] : 1955 Age: 62 Sex: F Location: EMERGENCY DEPARTMENT Exam Date: 11/25/172024 ADM Status: REG ER Order Information: CHEST PA & LAT 2 VWS Accession Number: [id number] CPT: 73247 Indication: Chest pain. 2 views of the chest including dual energy PA views are reviewed. Left lung field is clear. There appears to be fluid in the right fissure with a rounded mass in the right midlung field which was previously described as fluid in the major fissure. Overall this is unchanged from prior exam as well as March 22, 2013. Left lung field is clear. IMPRESSION: Right pleural effusion with right medial lung base bronchiectasis. There is loculated fluid in the major and minor fissure which has remained stable since March 22, 2013 and prior x-ray dated December 16, 2015. <Electronically signed by Roseann Ronquillo MD in OV> 11/25/172113 Dictated By: Roseann Ronquillo MD Dictated Date/Time: 11/25/172113 Transcribed Date/Time: 11/25/172110 Copy to: CC:[facility]; James Mahan MD; Philip Chirinos MD Imaging - [facility] Imaging - [facility] Imaging - [facility] [address] [address] ph [phone]) ph ([phone]) ph ([phone]) CARDIAC ECHO: Conclusions There is normal left ventricular systolic function. The estimated ejection fraction is 50-55%. Global left ventricular wall motion and contractility are within normal limits. The right atrium is mildly dilated. There is mild to moderate mitral regurgitation. There is mild tricuspid regurgitation (TR). Since the prior echocardiogram completed 04/21/13, pertinent change is prior TR graded moderate. Assess/Plan/Problems-Billing Assessment: This is a 62 year old female with history of lymphoma, radiation tx, chronic right pleural effusion and chronic LUE lymphedema that presents to ER with acute hypoxic respiratory failure. - Patient Problems (1) Acute respiratory failure with hypoxia Code(s): J96.01 - ACUTE RESPIRATORY FAILURE WITH HYPOXIA SNOMED Code(s): 13726904 Comment: - CXR as above, appears stable - May be component of COPD 2/2 hx of smoking, but also has extensive history of loculated pleural effusion, chest tube and chest radiation - Continue IV steroids, inhalers and pulmonary toilet - ECHO as above, no acute pathology noted - Weaning off O2 (2) History of Hodgkin's lymphoma Code(s): Z85.71 - PERSONAL HISTORY OF HODGKIN LYMPHOMA SNOMED Code(s): 546322537 Comment: - Stable (3) Atrial fibrillation Code(s): I48.91 - UNSPECIFIED ATRIAL FIBRILLATION SNOMED Code(s): 88243888 Comment: - On tikosyn and metoprolol, stable (4) Hypothyroid Code(s): E03.9 - HYPOTHYROIDISM, UNSPECIFIED SNOMED Code(s): 38717739 Comment: - Continue synthroid (5) Hypotension Comment: - Fluid bolus now - DC klonopin - Reduce metoprolol dose (6) Anxiety Code(s): F41.9 - ANXIETY DISORDER, UNSPECIFIED SNOMED Code(s): 26085639 Comment: - Will DC klonopin given hypotension (7) DVT prophylaxis Code(s): OSN2026 - SNOMED Code(s): 868604464 Comment: - HSQ (8) Full code status Code(s): Z78.9 - OTHER SPECIFIED HEALTH STATUS SNOMED Code(s): 476448163 Status and Disposition: Remain inpatient. Likely DC tomorrow if BP stable.
[2017-11-27] MEDS: Amitriptyline TAB* 10 MG PO SCH ×2 (20:50→20:55)
[2017-11-27] MEDS: Metoprolol Tartrate TAB* 25 MG PO SCH (20:50)
[2017-11-27] MEDS ORDERED: ALPRAZolam TAB* 0.25 MG PO ONE (21:11)
[2017-11-27] MEDS ORDERED: ALPRAZolam TAB* 0.25 MG ONE (21:43)
[2017-11-28] MEDS: methylPREDNISolone SOD 40 MG* 1 ML VIAL IV SCH ×2 (03:54→13:06)
[2017-11-28] MEDS: Omeprazole CAP* 20 MG PO SCH (04:00)
[2017-11-28] MEDS: Levothyroxine TAB* 75 MCG TAB PO SCH (06:30)
[2017-11-28] MEDS: Tiotropium CAP.INH* CAP.INH/18 MCG (USE ORDER SET !) INH SCH (08:17)
[2017-11-28] MEDS: Mometasone/Formoter 200/5 MDI INH SCH ×2 (08:17→21:05)
[2017-11-28] MEDS: NS 0.9% 1000 ML* 1,000 ML IV SCH (09:31)
[2017-11-28] MEDS: Docusate CAP* 100 MG PO SCH ×3 (09:32→20:51)
[2017-11-28] MEDS: Metoprolol Tartrate TAB* 25 MG PO SCH ×2 (09:32→20:57)
[2017-11-28] MEDS: Rivaroxaban TAB(*) 15 MG PO SCH (09:32)
[2017-11-28] MEDS: Dofetilide CAP* 250 MCG PO SCH ×2 (09:32→20:56)
[2017-11-28] MEDS ORDERED: Zolpidem TAB* 5 MG PO PRN (15:23)
--- NOTE | 2017-11-28 17:47 | PN ---
Subjective Date of Service: 11/28/17 Interval History: Patient was seen and examined earlier today. Reports feeling better overall. Denies any dyspnea at rest, wheezing or SOB. Her only complaints was being unable to sleep last night, would like something to help her insomnia. No chest pain, palpitations, fever or chills. Family History: Unchanged from Admission Social History: Unchanged from Admission Past Medical History: Unchanged from Admission Objective Active Medications: Acetaminophen (Tylenol Tab*) 650 mg PO Q6H PRN PRN Reason: FEVER/PAIN Albuterol (Ventolin 2.5 Mg/3 Ml Neb.Rose*) 2.5 mg INH Q2H PRN PRN Reason: SOB/WHEEZING Amitriptyline HCl (Elavil Tab*) 1 mg PO BEDTIME [facility] Last Admin: 11/27/17 20:55 Dose: Not Given Docusate Sodium (Colace Cap*) 200 mg PO BID [facility] Last Admin: 11/28/17 09:34 Dose: Not Given Dofetilide (Tikosyn Cap*) 250 mcg PO BID [facility] Last Admin: 11/28/17 09:32 Dose: 250 mcg Sodium Chloride (Ns 0.9% 1000 Ml*) 1,000 mls @ 50 mls/hr IV PER RATE [facility] Last Admin: 11/28/17 09:31 Dose: 50 mls/hr Levothyroxine Sodium (Synthroid Tab*) 75 mcg PO 0600 [facility] Last Admin: 11/28/17 06:30 Dose: 75 mcg Melatonin (Melatonin (Nf)) 3 mg PO BEDTIME PRN; Protocol PRN Reason: Sleep Last Admin: 11/28/17 02:14 Dose: 3 mg Metoprolol Tartrate (Lopressor Tab*) 25 mg PO BID [facility] Last Admin: 11/28/17 09:32 Dose: 25 mg Mometasone Furoate/Formoterol Fumar (Dulera 200/5 Mdi*) 2 puff INH BID [facility] Last Admin: 11/28/17 08:17 Dose: 2 puff Omeprazole (Prilosec Cap*) 20 mg PO DAILY@0600 [facility] Last Admin: 11/28/17 04:00 Dose: 20 mg Ondansetron HCl (Zofran Odt Tab*) 4 mg PO Q6H PRN PRN Reason: n/v Prednisone (Deltasone Tab*) 60 mg PO DAILY [facility] Rivaroxaban (Xarelto(*)) 15 mg PO DAILY [facility] Last Admin: 11/28/17 09:32 Dose: 15 mg Tiotropium [place] (Spiriva Cap.Inh*) 1 cap INH DAILY [facility] Last Admin: 11/28/17 08:17 Dose: 1 cap Zolpidem Tartrate (Ambien Tab*) 5 mg PO BEDTIME PRN PRN Reason: INSOMNIA Vital Signs - 8 hr 11/28/17 11/28/17 11:12 16:06 Temperature 97.9 F 97.4 F Pulse Rate 79 86 Respiratory 21 22 Rate Blood Pressure 112/55 120/79 (mmHg) O2 Sat by Pulse 96 98 Oximetry Oxygen Devices in Use Now: None Appearance: Sitting on edge of bed, finished her lunch, appears comfortable and in NAD. Eyes: No Scleral Icterus, PERRLA Ears/Nose/Mouth/Throat: Clear Oropharnyx, Mucous Membranes Moist Neck: NL Appearance and Movements; NL JVP, Trachea Midline Respiratory: Symmetrical Chest Expansion and Respiratory Effort, Clear to Auscultation Cardiovascular: NL Sounds; No Murmurs; No JVD, RRR Abdominal: NL Sounds; No Tenderness; No Distention Extremities: No Edema, No Clubbing, Cyanosis Skin: No Rash or Ulcers Neurological: Alert and Oriented x 3, NL Sensation, NL Muscle Strength and Tone Nutrition: Taking PO's Result Diagrams: 11/26/17 08:01 11/26/17 08:01 Additional Lab and Data: Microbiology and Other Data: Microbiology 11/26/17 04:30 Influenza Types A,B Antigen (IMELDA) - Final Nasal Specimen received for Influenza A/B Molecular testing Diagnostic Imaging: . EKG Data: . Assess/Plan/Problems-Billing Assessment: This is a 62 year old female with history of lymphoma, radiation tx, chronic right pleural effusion and chronic LUE lymphedema that presents to ER with acute hypoxic respiratory failure. - Patient Problems (1) Acute respiratory failure with hypoxia Current Visit: Yes Status: Acute Priority: High Comment: - Patient continues to improve clinically - Oxygen sats stable at room air - Continues nebs as needed - Switch to PO prednisone, will taper dose upon discharge to home tomorrow (2) Atrial fibrillation Current Visit: Yes Status: Acute Comment: - On tikosyn and metoprolol, stable (3) Anxiety Current Visit: Yes Status: Acute Comment: - Will DC klonopin given hypotension - BP reading have improved - Will likely switch to Xanax or a different SSRI upon discharge (4) History of Hodgkin's lymphoma Current Visit: Yes Status: Chronic Comment: - Stable (5) Hypotension Current Visit: Yes Status: Acute Comment: - Fluid bolus now - DC klonopin - Reduce metoprolol dose - BP will managed with above measures (6) Hypothyroid Current Visit: Yes Status: Acute Comment: - Continue synthroid (7) DVT prophylaxis Current Visit: Yes Status: Acute Comment: - Heparin subQ (8) Full code status Current Visit: Yes Status: Acute Status and Disposition: Remain inpatient. Plan to discharge to home in AM 11/29/17
[2017-11-28] MEDS: Amitriptyline TAB* 10 MG PO SCH (20:56)
[2017-11-29] MEDS: Omeprazole CAP* 20 MG PO SCH (05:55)
[2017-11-29] MEDS: Levothyroxine TAB* 75 MCG TAB PO SCH (05:55)
[2017-11-29] MEDS: Docusate CAP* 100 MG PO SCH (08:38)
[2017-11-29] MEDS: Rivaroxaban TAB(*) 15 MG PO SCH (08:39)
[2017-11-29] MEDS: Metoprolol Tartrate TAB* 25 MG PO SCH (08:39)
[2017-11-29] MEDS: Dofetilide CAP* 250 MCG PO SCH (08:39)
[2017-11-29] MEDS ORDERED: predniSONE TAB* 20 MG PO SCH (09:00)
[2017-11-29] MEDS: Tiotropium CAP.INH* CAP.INH/18 MCG (USE ORDER SET !) INH SCH (09:17)
[2017-11-29] MEDS: Mometasone/Formoter 200/5 MDI INH SCH (09:20)
[2017-11-29 13:15] VITALS: BP 102/80
--- NOTE | 2017-11-30 07:51 | DS ---
AMENDED REPORT NOW INCLUDES COSIGNER DESIGNATION - ESIGNED BEFORE ADJUSTMENTS CC: Dr. Philip Chirinos * DISCHARGE SUMMARY: DATE OF ADMISSION: 11/26/17 DATE OF DISCHARGE: 11/29/17 PATIENT OF: Garrison Argueta MD. ADMITTING PHYSICIAN: Garrison Argueta MD. ATTENDING HOSPITALIST: Dr. Daisha Zamora. * (DICTATED BY EULOGIO ARELLANO) CONSULTATIONS: None. PRIMARY CARE PHYSICIAN: Philip Chirinos MD. ADMISSION DIAGNOSES: 1. Shortness of breath. 2. Acute respiratory failure with hypoxia. 3. History of atrial fibrillation. 4. Hypothyroidism. 5. GERD. 6. Anxiety disorder. 7. Chronic left upper extremity lymphedema. 8. Hodgkin's lymphoma, in remission. 9. Sujit's syndrome. DISCHARGE DIAGNOSES: 1. Shortness of breath. 2. Acute respiratory failure with hypoxia. 3. History of atrial fibrillation. 4. Hypothyroidism. 5. GERD. 6. Anxiety disorder. 7. Chronic left upper extremity lymphedema. 8. Hodgkin's lymphoma in remission. 9. Sujit's syndrome. HISTORY OF PRESENT ILLNESS: Ms. Traylor is a pleasant 62-year-old female with a past medical history of atrial fibrillation, hypothyroidism, GERD, anxiety, Hodgkin's lymphoma, as well as chronic left upper extremity lymphedema, who presented to the emergency room on the late evening hours of 11/25/17, with complaints of worsening shortness of breath. The patient has had symptoms consistent with a bronchitis since last August, which has been slowly resolving until past Wednesday when she started to have gradual worsening of shortness of breath and dyspnea on exertion. She developed bilateral lower extremity weakness, worsening shortness of breath, and shakiness, after 5 minutes she spent working out at the gym. She presented to the emergency room for evaluation. Denied any chest pain, nausea, vomiting or diaphoresis. She received an albuterol treatment in the ED, which helped her subjective shortness of breath significantly. She was still hypoxic and dependent on oxygen supplementation for which we were asked to see the patient for further evaluation and to discuss admission. HOSPITAL COURSE: The patient was admitted under the hospitalist service due to increasing shortness of breath and acute respiratory failure with hypoxia. The patient denies any similar complaints in the past; however, she has had episodes when she gets short of breath due to anxiety disorders and panic attacks. She has been on Klonopin for almost 20 years right now and notes that she has had some increased palpitations and anxiety in the past couple of years. She was admitted and she was reevaluated on the following morning. She was noted to have hypertension on admission that eventually resolved and is believed to be due to her anxiety attacks. She was kept on Xanax to use as needed and I also added Ambien to use at night, which notes significant improvement of her sleeping pattern. She reports that she has been suffering from insomnia for a long time and always feels tired in the morning due to lack of sleep. She continued to improve from respiratory standpoint and received occasional nebulizer treatment as needed for shortness of breath. Her oxygen supplementation was gradually tapered down and eventually the patient was maintaining upper 90% of oxygen saturation on room air. She was ambulatory out of bed and given her chronic use of corticosteroids, she was started on IV Solu- Medrol that was switched to p.o. prednisone prior to discharge and we were planning on discharging her on a tapering dose of prednisone for the next few days. Her exam on discharge morning was essentially unremarkable. Her lungs were clear to auscultation bilaterally. Her heart was regular rate and rhythm, with no rubs, murmurs or gallops. Her abdomen was soft, nontender, and nondistended. Her vitals were stable and the patient will be discharged home today and will follow up with Dr. Chirinos as an outpatient next week. DISCHARGE MEDICATIONS: She will continue her home medications includin. Tylenol 650 mg p.o. q.6 hours as needed for pain or fever. 2. Amitriptyline 1 mg p.o. q.h.s. 3. Clonazepam 1 mg p.o. q.h.s. 4. Clotrimazole cream 1% apply topically as instructed. 5. Tikosyn 250 mcg p.o. b.i.d. 6. Synthroid 75 mcg p.o. daily. 7. Metoprolol 50 mg p.o. b.i.d. 8. Multivitamin 1 tablet p.o. daily. 9. Boling-3 fish oil 2 caps p.o. daily. 10. Prednisone 20 mg tablets at a tapering dose, starting with 60 mg once daily for 2 days, then 40 mg for 2 days, then 20 mg for 2 days, then 10 mg for 2 days, then discontinue. 11. Xarelto 15 mg p.o. daily. 12. Ambien 5 mg p.o. nightly as needed for insomnia. EULOGIO ARELLANO [id number]/[facility] #: [id number] [facility]
== END 2017-11-29 16:05 | disposition home or self-care (01) | DRG 133 ==
LOC: ED 18:41 → MED 11-26 02:58
PROVIDERS: ADMIT Hospitalist; ATTEND Student in an Organized Health Care Education/Training Program
DX: J96.01 Acute respiratory failure with hypoxia (principal); J90 Pleural effusion, not elsewhere classified; J44.9 Chronic obstructive pulmonary disease, unspecified; I48.91 Unspecified atrial fibrillation; G90.2 Horner's syndrome; I36.1 Nonrheumatic tricuspid (valve) insufficiency; K21.9 Gastro-esophageal reflux disease without esophagitis; F41.9 Anxiety disorder, unspecified; E03.9 Hypothyroidism, unspecified; I89.0 Lymphedema, not elsewhere classified; Z85.71 Personal history of Hodgkin lymphoma; Z79.52 Long term (current) use of systemic steroids; Z79.899 Other long term (current) drug therapy; Z88.1 Allergy status to other antibiotic agents; Z88.0 Allergy status to penicillin; Z88.8 Allergy status to other drugs, medicaments and biological substances; Z87.891 Personal history of nicotine dependence; Z82.49 Family history of ischemic heart disease and other diseases of the circulatory system; Z92.3 Personal history of irradiation
CPT/HCPCS: 36415; 71046; 80048; 80053; 81003; 82803; 83605; 83735; 84443; 84484; 85025; 87502; 93005; 93306; 94640; 99285; A9270-GY; C8929; J1940; J2920; J2930; J7512

== ENCOUNTER 2018-04-01 17:27 | Inpatient (IN) | payer OTHER ==
--- OUTSIDE RECORDS SUMMARY | 2018-04-01 17:57 | XMS REPORT ---
:1955 External Reference #:[id number] Author Organization [facility] Address [address] [place] [address] Phone [phone] Care Team Providers Name Role Phone Philip Chirinos MD Care Team Information Child Care Supervisor Unavailable Philip Chirinos MD Primary Care Physician Unavailable Payers Type Date Identification Numbers Payment Provider Subscriber Medicaid Effective: Policy Number: [id number] [facility] Kallie Patel 2011 PayID: [id number] [address] [address] [place] [address] Problems Date Description Provider Status Onset: 04/16/2011 Atrial flutter Whitney Croft M.D. Active Onset: 04/16/2011 Anxiety state Whitney Croft M.D. Active Onset: 04/16/2011 Hodgkin's disease (clinical) Whitney Croft M.D. Active Onset: 04/16/2011 Neuralgia Whitney Croft M.D. Active Onset: 04/16/2011 Impacted cerumen Whitney Croft M.D. Active Onset: 05/21/2011 Impaired fasting glycaemia Whitney Croft M.D. Active Onset: 05/21/2011 Hyperlipidemia Whitney Croft M.D. Active Onset: 05/21/2011 Hypothyroidism Whitney Croft M.D. Active Onset: 02/04/2012 Pleural effusion Whitney Croft M.D. Active Onset: 03/29/2013 Cellulitis Philip Chirinos M.D. Active Onset: 03/29/2013 Atrial fibrillation Pihlip Chirinos M.D. Active Onset: 10/05/2016 Paroxysmal atrial fibrillation Philip Chirinos M.D. Active Onset: 10/05/2016 Lymphedema Philip Chirinos M.D. Active Onset: 09/17/2017 Bronchitis Thee Zhao M.D. Active Onset: 03/16/2018 Edema Philip Chirinos M.D. Active Onset: 03/16/2018 Shoulder joint pain Philip Chirinos M.D. 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 Cigarette Use Former Cigarette Smoker 1-5 Cigarettes Daily ETOH Use Denies alcohol use Recreational Drug Use Regularly uses Marijuana Smoking Patient is a former smoker Daily Caffeine Does not consume caffeine Allergies, Adverse Reactions, Alerts Date Description Reaction Status Severity Comments 05/22/2004 Penicillin active 01/01/2010 Mold active 01/01/2010 Dust active 04/16/2011 Levaquin swelling/ithcy active 02/04/2012 Multak active Decreased Respirations 12/04/2015 Clindamycin Elevated BP and A-Fib active 02/18/2018 Tramadol severe diarrhea active Medications Medication Date Status Form Strength Qnty SIG Indications Ordering Provider Fluticasone 02/18 Active Suspension 50mcg/Act 15.80 2 sprays J30.9 Lara CJudi Propionate /2018 0ml each 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 /2017 e) puffs Rahat, mcg/Act inhaled DIGGING MACHINE OPERATOR every 4 hours as needed for wheezing or tightness in the chest Spacer For Mdi 02/18 Active 1unit for use J44.9 Lara CJudi s with Rahat inhaler DIGGING MACHINE OPERATOR Furosemide 02/11 Active Tablets 20mg 30tab take 1 R60.0 s tablets by Rut, mouth daily MANAGER AUTO Physical 10/05 Active treatment Philip James Therapy /2016 and ilnda Chirinos M.D. lymphedema left edema Physical 12/03 Active evaluate M25.512 Judit Therapy and treat Rut, left MANAGER AUTO shoulder pain Xarelto 04/17 Active Tablets 20mg 30tab take one Philip James s tablet by Breminna, mouth once M.D. daily Freestyle Lite 02/03 Active Strips 100un for testing Whitney Wooten Test Strips /2011 its once a day Bucky Croft Freestyle Lite 02/03 Active Misc 100un test once a Whitney Wooten Lancets /2011 its day Bucky Croft Levothyroxine 10/19 Active Tablets 75mcg 30tab take one Philip James Sodium s tablet by Breimajanie, mouth once M.D. daily Murphys 3/Coq 10 05/21 Active Whitney Wooten /2010 Bucky Croft Metoprolol 01/05 Active Tablets 50mg 60tab 1 by mouth Philip James Tartrate s twice a day Bucky Chirinos Calcium/Magnes 01/03 Active Tablets daily Family ium /2007 [facility] Vitamin C 01/03 Active Tablets 500mg PO qd Family /2007 [facility] Amitriptyline 10/28 Active Tablets 10mg 135ta 0.5mg daily Philip James HCL /2005 bs Bucky Chirinos Clonazepam 02/11 Active Tablets 1mg 30tab 1 by mouth Philip James /2003 s nightly at [facility], bedtime as M.D. needed insomnia mdd 1 mdd 1 Multi-Vitamin Active Tablets 1 po qd Unknown Tikosyn Active Capsules 250mcg 1 po bid Tramadol HCL 02/11 Hx Tablets 50mg 60tab 1-2 every M25.512 s 8-12h as Rut, - needed pain MANAGER AUTO 02/18 Cephalexin 12/16 Hx Capsules 500mg 15cap take one by L03.314 Thiago A. s mouth three Darlow, - times daily M.D. 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 05/20 Acetaminophen- 12/03 Hx Tablets 300-30mg 30tab 1-2 every 8 M25.512 Philip James Codeine #3 s hours as Candis, - needed for M.D. 02/11 pain Doxycycline 03/27 Hx Capsules 100mg 20cap use 1bid x 786.2 Judit cl s 10d Rut, - MANAGER AUTO 12/03 Nystatin 11/29 Hx Cream [id number] 30uni Apply To Philpi James t/GM ts Affected Candis, - Area(S) Two M.D. 02/05 Times A Day /2015 as Directed By Doctor Cullen 10/17 Hx Tablets 50mg 60tab take one Philip James s tablet by Candis, - mouth twice M.D. 03/27 a /2014 Zithromax 09/21 Hx Tablets 250mg 1Pack as directed Philip Hart Andrew Chirinos M.D. 09/22 Doxycycline 05/26 Hx Capsules 100mg 14cap use 1bid Philip Grey Andrew Trujillo M.D. 11/07 Digoxin 04/17 Hx Tablets 0.125mg 30tab 1 po qd Philip James /2012 Andrew Trujillo M.D. 11/07 Silvadene 04/05 Hx Cream 1% 30gm use creme Philip James /2012 Andrew Santiago M.D. 09/17 Xarelto 03/29 Hx Tablets 15mg Philip James /2012 Andrew Chirinos M.D. 04/17 Clindamycin 03/26 Hx Capsules 300mg 20cap take 1 po Shahriar Ted HCL /2012 s qid x 5 Shallish, - days M.D. 04/05 Tylenol/Codein 03/17 Hx Tablets 300-30mg 40tab 1-2 po q4h Bhavna e #3 s prn pain BekaAndrew 04/05 Sulfamethoxazo 03/16 Hx Tablets 800-160mg 20tab 1 po bid x 682.8 Bhavna le/Trimethopri /2012 s 10 days alma Ireland 03/26 Silver 03/16 Hx Cream 1% 50gm apply qd 682.8 Bhavna Sulfadiazine /2012 Andrew Ireland 03/26 Nystatin 03/11 Hx Cream [id number] 30uni Apply To Philip James /2011 t/GM ts Affected Candis, - Area(S) as M.D. 04/05 Directed By MD Dawson 03/05 Hx Powder [id number] 60gm apply to Philip James t/GM affected Candis, - area twice M.DJudi 04/05 a day prn /2012 Nystatin 02/28 Hx Cream 1000Unit/ 30gm use as Philip James /2011 GM directed Andrew Chirinos M.D. 04/05 Aspirin 02/03 Hx Tablets 325mg 1 po qd [facility] 12/10 [facility] Percocet 02/03 Hx Tablets 5-325mg 6tabs 1 tabs po Whitney Wooten /2011 every 4 Lang, - hours prn Bucky 08/22 pain /2012 Doxycycline 04/30 Hx Tablets 100mg 2tabs 2 tabs po x Whitney Wooten Hyclate 1 Andrew Croft M.D. 05/21 Coumadin 01/19 Hx Tablets 2.5mg 60tab 1 po qd or Philip James /2010 s as directed Andrew Chirinos M.D. 04/16 Metoprolol 01/05 Hx Tablets ER 50mg 60tab 1 po bid Raine Succinate ER /2010 24HR s Andrew Hutchins M.D. 01/05 Zithromax 01/05 Hx Tablets 250mg 6Tabs 2 po qd Raine /2011 today , patrick Wheeler, - then 1 po M.D. 04/16 qd times Metoprolol 12/01 Hx Tablets 50mg 60tab 1 po in am, Raine Tar s 1 in pm Andrew Hutchins M.D. 12/11 Biaxin 11/07 Hx Tablets 500mg 20tab 1 po bid Raine s Andrew HutchinsDJudi 11/10 Prednisone 11/07 Hx Tablets 20mg 15tab 3 tabs po s qd x 5 days Andrew Hutchins M.DJudi 11/10 Doxycycline 05/28 Hx Tablets 100mg 2tabs take 2 Philip Grey pills Andrew Chirinos MJudiDJudi 11/07 Levothyroxine 01/23 Hx Tablets 50mcg 30tab Take One Whitney Wooten Sodium s Tablet By Lang, - Mouth Once M.D. 10/19 Lab Order 01/01 Hx please draw TSH, free patrick Wheeler, - T4 and T3 M.D. 11/07 week 01/23/10, PT is A difficult draw due to hx of cancer Diflucan 08/20 Hx Tablets 150mg 4tabs 1 po once a 782.1 week x 4 Andrew Ireland-Leah 11/18 Mebendazole 07/03 Hx Chewtabs 100mg 1unit 1 po 127.4 Andrew Sanchez-C 11/18 Physical 08/20 Hx evaluate Raine and treat r patrick Wheeler, - hand and M.D. 11/18 arm pain and weakness Diflucan 04/11 Hx Tablets 150mg 4tabs 1 po each week x 4 patrick Wheeler - weeks M.D. 08/20 Clotrimazole 04/11 Hx Cream 1% 60gm apply to affected Beka - area bid Afnp-C 11/15 (area 6" diameter) Fish Oil 01/03 Hx Capsules 1000mg 1 PO qd [facility] 05/21 Vitamin A 01/03 Hx Capsules [facility] 12/03 [place] Zantac 01/03 Hx Capsules 150mg Andrew Hutchins M.D. 01/03 Prilosec OTC 01/[address] 20mg 30tab 1 po qd Raine Andrew Crowley M.D. 01/03 Nexium 01/03 Hx CPDR 40mg 30uni Take One ts Capsule By patrick Wheeler - Mouth Every M.DJudi Amitriptyline 10/28 Hx Tablets 10mg 135ta 1 1/2 tabs Philip James /2005 bs po hs Andrew Austin M.D. 07/25 Amitriptyline 05/31 Hx Tablets 50mg 30tab 1 po qhs Raine /2005 Andrew Crowley M.D. 10/28 Amitriptyline 02/11 Hx 50mg 30uni 1 tab po ts qAndrew March M.D. 11/17 Metoprolol Hx Tablets ER 50mg 1 PO bid Raine Succinate ER / 24HR Andrew Hutchins M.D. 12/01 Aspirin Hx Chewtabs 81mg 1 po qd Unknown /0000 - 02/03 Lovenox Hx Solution 80mg/0.8M 16ml 80 mg sq Unknown /0000 L bid - 12/29 Coumadin Hx Tablets 2mg 60tab qd or as Philip James / Andrew Solo M.D. 01/19 Metoprolol Hx Tablets 25mg 60tab 1 po bid Raine Tartrate Andrew Crowley M.D. 01/05 Lovenox 00/ Hx Solution 80mg/0.8M Unknown /0000 L - 12/29 Multaq 00/00 Hx Tablets 400mg 1 po bid Unknown /0000 - 12/29 Diflucan Hx Tablets 200mg 2tabs 1 by mouth Philip James /0000 now. repeat Andrew Chirinos in one week Bucky 05/20 necessary. Atenolol Hx Tablets 50mg 1 by mouth Unknown /0000 every day - 03/16 Atenolol 00/ Hx Tablets 50mg 2 by mouth Unknown /0000 every day - 03/30 Vital Signs Date Vital Result Comment 03/30/2018 Heart Rate 74 /min Body Temperature 98.3 F Respiratory Rate 15 /min O2 % BldC Oximetry 95 % Ra 03/16/2018 BP Systolic 120 mmHg BP Diastolic 72 mmHg Heart Rate 72 /min Body Temperature 97.9 F Respiratory Rate 18 /min O2 % BldC Oximetry 97 % Height 66 inches 5'6" Weight 172.00 lb BMI (Body Mass Index) 27.8 kg/m2 03/04/2018 BP Systolic 126 mmHg BP Diastolic 66 mmHg Heart Rate 74 /min Body Temperature 97.5 F Respiratory Rate 16 /min O2 % BldC Oximetry 99 % Height 66 inches 5'6" Weight 173.00 lb BMI (Body Mass Index) 27.9 kg/m2 02/18/2018 BP Systolic 100 mmHg BP Diastolic 60 mmHg Heart Rate 66 /min Body Temperature 97.7 F Respiratory Rate 16 /min O2 % BldC Oximetry 96 % Height 66 inches 5'6" Weight 175.12 lb BMI (Body Mass Index) 28.3 kg/m2 02/11/2018 BP Systolic 120 mmHg BP Diastolic 80 mmHg Heart Rate 62 /min Body Temperature 98.3 F Respiratory Rate 16 /min Height 66 inches 5'6" Weight 174.25 lb BMI (Body Mass Index) 28.1 kg/m2 12/30/2017 BP Systolic 116 mmHg BP Diastolic 72 mmHg Heart Rate 76 /min Body Temperature 97.7 F Respiratory Rate 16 /min Height 66 inches 5'6" Weight 163.25 lb BMI (Body Mass Index) 26.3 kg/m2 12/16/2017 BP Systolic 122 mmHg BP Diastolic 70 mmHg Heart Rate 74 /min Body Temperature 98.3 F Respiratory Rate 16 /min Height 66 inches 5'6" Weight 167.00 lb BMI (Body Mass Index) 27.0 kg/m2 12/08/2017 BP Systolic 118 mmHg BP Diastolic 78 mmHg Heart Rate 70 /min Body Temperature 97.7 F Respiratory Rate 18 /min O2 % BldC Oximetry 99 % on Ra Height 66 inches 5'6" Weight 170.00 lb BMI (Body Mass Index) 27.4 kg/m2 09/17/2017 BP Systolic 118 mmHg BP Diastolic 76 mmHg Heart Rate 72 /min Body Temperature 97.9 F Respiratory Rate 18 /min Height 66 inches 5'6" Weight 172.00 lb BMI (Body Mass Index) 27.8 kg/m2 03/03/2017 BP Systolic 118 mmHg BP Diastolic 70 mmHg Heart Rate 64 /min Body Temperature 97.7 F Respiratory Rate 16 /min Height 66 inches 5'6" Weight 174.00 lb BMI (Body Mass Index) 28.1 kg/m2 10/05/2016 BP Systolic 128 mmHg BP Diastolic 76 mmHg Heart Rate 68 /min Respiratory Rate 20 /min Height 66 inches 5'6" Weight 181.00 lb BMI (Body Mass Index) 29.2 kg/m2 05/20/2016 BP Systolic 126 mmHg BP Diastolic 80 mmHg Heart Rate 66 /min Body Temperature 97.2 F Respiratory Rate 18 /min Height 66 inches 5'6" Weight 179.38 lb BMI (Body Mass Index) 28.9 kg/m2 02/05/2016 BP Systolic 124 mmHg BP Diastolic 72 mmHg Heart Rate 100 /min Body Temperature 98.1 F Respiratory Rate 18 /min Height 66 inches 5'6" 12/04/2015 BP Systolic 120 mmHg BP Diastolic 74 mmHg Heart Rate 76 /min Body Temperature 97.7 F Respiratory Rate 16 /min Height 66 inches 5'6" Weight 180.00 lb BMI (Body Mass Index) 29.0 kg/m2 05/31/2015 BP Systolic 118 mmHg BP Diastolic 78 mmHg Heart Rate 74 /min Body Temperature 98.2 F Height 66 inches 5'6" 03/27/2015 BP Systolic 118 mmHg BP Diastolic 72 mmHg Heart Rate 74 /min Body Temperature 98.3 F Height 66 inches 5'6" Weight 183.00 lb BMI (Body Mass Index) 29.5 kg/m2 12/10/2014 BP Systolic 124 mmHg BP Diastolic 60 mmHg Heart Rate 60 /min Body Temperature 98.4 F Respiratory Rate 18 /min Height 66 inches 5'6" Weight 180.00 lb BMI (Body Mass Index) 29.0 kg/m2 11/07/2013 BP Systolic 118 mmHg BP Diastolic 70 mmHg Heart Rate 100 /min Body Temperature 98.8 F Respiratory Rate 18 /min Height 66 inches 5'6" Weight 172.25 lb BMI (Body Mass Index) 27.8 kg/m2 06/21/2013 BP Systolic 120 mmHg BP Diastolic 72 mmHg Heart Rate 80 /min Body Temperature 98.6 F Respiratory Rate 18 /min Height 66 inches 5'6" Weight 170.00 lb BMI (Body Mass Index) 27.4 kg/m2 05/26/2013 BP Systolic 120 mmHg BP Diastolic 78 mmHg Heart Rate 80 /min Body Temperature 98.7 F Respiratory Rate 18 /min Height 66 inches 5'6" Weight 170.00 lb BMI (Body Mass Index) 27.4 kg/m2 04/17/2013 BP Systolic 124 mmHg BP Diastolic 80 mmHg Heart Rate 68 /min Body Temperature 98.0 F Respiratory Rate 18 /min Height 66 inches 5'6" Weight 173.00 lb BMI (Body Mass Index) 27.9 kg/m2 04/05/2013 BP Systolic 130 mmHg BP Diastolic 70 mmHg Heart Rate 74 /min Body Temperature 97.4 F Respiratory Rate 18 /min Height 66 inches 5'6" Weight 184.00 lb BMI (Body Mass Index) 29.7 kg/m2 03/29/2013 BP Systolic 110 mmHg BP Diastolic 80 mmHg Heart Rate 80 /min Body Temperature 98.1 F Respiratory Rate 18 /min Height 66 inches 5'6" Weight 188.00 lb BMI (Body Mass Index) 30.3 kg/m2 03/18/2013 BP Systolic 100 mmHg BP Diastolic 70 mmHg Heart Rate 68 /min Body Temperature 99.9 F Respiratory Rate 16 /min Height 66 inches 5'6" Weight 179.00 lb BMI (Body Mass Index) 28.9 kg/m2 03/16/2013 BP Systolic 128 mmHg BP Diastolic 80 mmHg Heart Rate 68 /min Body Temperature 98.0 F Respiratory Rate 18 /min Height 66 inches 5'6" Weight 179.00 lb BMI (Body Mass Index) 28.9 kg/m2 02/20/2013 BP Systolic 118 mmHg BP Diastolic 80 mmHg Heart Rate 72 /min Body Temperature 97.6 F Respiratory Rate 18 /min Height 66 inches 5'6" Weight 178.00 lb BMI (Body Mass Index) 28.7 kg/m2 09/02/2012 BP Systolic 124 mmHg BP Diastolic 80 mmHg Heart Rate 66 /min Body Temperature 98.1 F Height 66 inches 5'6" Weight 178.00 lb BMI (Body Mass Index) 28.7 kg/m2 08/29/2012 BP Systolic 120 mmHg BP Diastolic 60 mmHg Heart Rate 72 /min Body Temperature 98.7 F Respiratory Rate 16 /min Height 66 inches 5'6" Weight 177.00 lb BMI (Body Mass Index) 28.6 kg/m2 08/22/2012 BP Systolic 130 mmHg BP Diastolic 80 mmHg Heart Rate 72 /min Body Temperature 97.5 F Height 66 inches 5'6" Weight 177.00 lb BMI (Body Mass Index) 28.6 kg/m2 02/04/2012 BP Systolic 120 mmHg BP Diastolic 74 mmHg Heart Rate 100 /min Body Temperature 97.8 F Respiratory Rate 18 /min O2 % BldC Oximetry 99 % Height 66 inches 5'6" Weight 178.00 lb BMI (Body Mass Index) 28.7 kg/m2 10/20/2011 BP Systolic 115 mmHg BP Diastolic 65 mmHg Heart Rate 92 /min Body Temperature 98.3 F Height 66 inches 5'6" Weight 185.00 lb BMI (Body Mass Index) 29.9 kg/m2 05/21/2011 BP Systolic 128 mmHg BP Diastolic 80 mmHg Heart Rate 74 /min Body Temperature 98.5 F Height 66 inches 5'6" Weight 186.00 lb BMI (Body Mass Index) 30.0 kg/m2 04/16/2011 BP Systolic 122 mmHg BP Diastolic 72 mmHg Heart Rate 88 /min Body Temperature 97.7 F Height 66 inches 5'6" Weight 184.00 lb BMI (Body Mass Index) 29.7 kg/m2 12/29/2010 BP Systolic 120 mmHg BP Diastolic 90 mmHg Heart Rate 100 /min Body Temperature 98.6 F Respiratory Rate 15 /min Height 66 inches 5'6" Weight 182.00 lb BMI (Body Mass Index) 29.4 kg/m2 12/11/2010 BP Systolic 130 mmHg BP Diastolic 70 mmHg Heart Rate 100 /min Respiratory Rate 15 /min O2 % BldC Oximetry 95 % Height 66 inches 5'6" Weight 185.00 lb BMI (Body Mass Index) 29.9 kg/m2 12/01/2010 BP Systolic 126 mmHg BP Diastolic 82 mmHg Heart Rate 76 /min Respiratory Rate 15 /min Height 66 inches 5'6" Weight 185.00 lb BMI (Body Mass Index) 29.9 kg/m2 11/15/2010 BP Systolic 120 mmHg BP Diastolic 66 mmHg Heart Rate 90 /min Body Temperature 98.2 F Height 66 inches 5'6" Weight 196.00 lb BMI (Body Mass Index) 31.6 kg/m2 11/07/2010 Heart Rate 120 /min Body Temperature 98.5 F O2 % BldC Oximetry 97 % Height 66 inches 5'6" Weight 200.00 lb BMI (Body Mass Index) 32.3 kg/m2 05/28/2010 BP Systolic 120 mmHg BP Diastolic 80 mmHg Heart Rate 72 /min Body Temperature 97.4 F Height 66 inches 5'6" 01/01/2010 BP Systolic 120 mmHg BP Diastolic 80 mmHg Heart Rate 72 /min Irr Body Temperature 99.8 F Respiratory Rate 16 /min Weight 188.00 lb 11/18/2009 BP Systolic 118 mmHg BP Diastolic 82 mmHg Heart Rate 110 /min Weight 194.00 lb 08/20/2009 BP Systolic 140 mmHg BP Diastolic 88 mmHg Heart Rate 88 /min Body Temperature 98.5 F Height 66 inches 5'6" Weight 194.00 lb BMI (Body Mass Index) 31.3 kg/m2 07/03/2009 BP Systolic 120 mmHg BP Diastolic 88 mmHg Heart Rate 100 /min Body Temperature 98.2 F Weight 192.00 lb 08/20/2008 BP Systolic 132 mmHg BP Diastolic 80 mmHg Heart Rate 114 /min Body Temperature 99.0 F Height 66 inches 5'6" Weight 184.00 lb BMI (Body Mass Index) 29.7 kg/m2 04/11/2008 BP Systolic 132 mmHg BP Diastolic 82 mmHg Heart Rate 88 /min Body Temperature 98.3 F Height 66 inches 5'6" Weight 175.00 lb BMI (Body Mass Index) 28.2 kg/m2 01/04/2008 BP Systolic 120 mmHg BP Diastolic 70 mmHg Heart Rate 96 /min Height 66 inches 5'6" Weight 175.00 lb BMI (Body Mass Index) 28.2 kg/m2 05/25/2007 BP Systolic 118 mmHg BP Diastolic 72 mmHg Heart Rate 74 /min Body Temperature 16.0 F Respiratory Rate 16 /min Height 66 inches 5'6" 05/12/2007 BP Systolic 108 mmHg BP Diastolic 72 mmHg Heart Rate 88 /min Body Temperature 96.7 F Height 66 inches 5'6" Weight 174.00 lb BMI (Body Mass Index) 28.1 kg/m2 05/03/2007 BP Systolic 128 mmHg BP Diastolic 80 mmHg Heart Rate 76 /min Body Temperature 98.2 F Height 66 inches 5'6" Weight 174.00 lb BMI (Body Mass Index) 28.1 kg/m2 11/11/2005 Heart Rate 72 /min Respiratory Rate 18 /min Height 66 inches 5'6" Weight 166.00 lb BMI (Body Mass Index) 26.8 kg/m2 10/28/2005 BP Systolic 130 mmHg BP Diastolic 80 mmHg Heart Rate 72 /min Height 66 inches 5'6" Weight 166.00 lb BMI (Body Mass Index) 26.8 kg/m2 05/22/2004 BP Systolic 142 mmHg BP Diastolic 90 mmHg Heart Rate 78 /min Height 66 inches 5'6" Weight 172.00 lb BMI (Body Mass Index) 27.8 kg/m2 02/12/2004 BP Systolic 122 mmHg BP Diastolic 78 mmHg Heart Rate 80 /min Height 66 inches 5'6" Weight 178.00 lb BMI (Body Mass Index) 28.7 kg/m2 Results Test Date Test Result H/L Range Note Laboratory test 11/26/2017 Rapid Influenza A & SEE RESULT BELOW 1 finding B Antigen Arterial Blood Gas 11/26/2017 PH Arterial 7.38 7.35-7.45 Pco2 Arterial 38 mmHg 35-45 Po2 Arterial 53 mmHg Low 80-100 2 O2 Saturation Arterial 89.2 % Low 95-98 Base Excess Arterial -2.2 Low -2.0-2.0 3 Hco3 Arterial 22.8 mmol/L - CBC Auto Diff 11/25/2017 White Blood Count 8.4 10^3/uL 3.5-10.8 Red Blood Count 5.09 10^6/uL 4.0-5.4 Hemoglobin 15.2 g/dL 12.0-16.0 Hematocrit 47 % 35-47 Mean Corpuscular Volume 91 fL 80-97 Mean Corpuscular Hemoglobin 30 pg 27-31 Mean Corpuscular HGB Conc 33 g/dL 31-36 Red Cell Distribution Width 15 % 10.5-15 Platelet Count 267 10^3/uL 150-450 Mean Platelet Volume 8.4 um3 7.4-10.4 Abs Neutrophils 6.9 10^3/uL 1.5-7.7 Abs Lymphocytes 0.9 10^3/uL Low 1.0-4.8 Abs Monocytes 0.6 10^3/uL 0-0.8 Abs Eosinophils 0 10^3/uL 0-0.6 Abs Basophils 0.1 10^3/uL 0-0.2 Abs Nucleated RBC 0 10^3/uL Granulocyte % 81.3 % 38-83 Lymphocyte % 10.1 % Low 25-47 Monocyte % 7.5 % High 0-7 Eosinophil % 0.1 % 0-6 Basophil % 1.0 % 0-2 Nucleated Red Blood Cells % 0 Laboratory test finding 11/25/2017 Lactic Acid 1.6 mmol/L 0.5-2.0 4 Urinalysis Profile 11/25/2017 Urine Color Straw Urine Appearance Clear Urine Specific [place] 1.004 Low 1.010-1.030 Urine pH 6.0 5-9 Urine Urobilinogen Negative Negative Urine Ketones Trace Negative Urine Protein Negative Negative Urine Leukocytes Negative Negative Urine Blood Negative Negative Urine Nitrite Negative Negative Urine Bilirubin Negative Negative Urine Glucose Negative Negative Basic Metabolic Profile 09/17/2017 Sodium 139 mEq/L 134-149 Potassium 4.5 mEq/L 3.6-5.5 Chloride 98 mEq/L 94-112 Carbon Dioxide 26 mEq/L 21-32 Glucose 149 mg/dL High 70-105 BUN 16 mg/dL 6-26 Creatinine 0.7 mg/dL 0.6-1.4 BUN/Creat Ratio 22.9 CALC 8.0-36.0 Calcium 9.8 mg/dL 8.6-10.2 GFR Non- >60 ml/min/1.73m^ >=60 GFR >60 ml/min/1.73m^ >=60 Laboratory test finding 09/17/2017 TSH 2.42 mIU/L 0.50-6.00 Free T4 1.74 ng/dL High 0.75-1.54 5 Laboratory test finding 10/12/2016 TSH 3.29 mIU/L 0.50-6.00 Free T4 1.32 ng/dL 0.75-1.54 Comprehensive Metabolic Prof 10/12/2016 Sodium 145 mEq/L 134-149 Potassium 4.8 mEq/L 3.6-5.5 Chloride 103 mEq/L 94-112 Carbon Dioxide 24 mEq/L 21-32 Glucose 142 mg/dL High 70-105 6 BUN 21 mg/dL 6-26 Creatinine 0.8 mg/dL 0.6-1.4 BUN/Creat Ratio 26.3 CALC 8.0-36.0 Calcium 9.6 mg/dL 8.6-10.2 Total Protein 7.6 g/dL 6.4-8.3 Albumin 4.5 g/dL 3.8-5.5 Globulin 3.1 g/dL 2.0-4.8 A/G Ratio 1.5 CALC 0.6-2.3 Alk. Phosphatase 32 U/L 30-110 Alt (SGPT) 23 U/L 7-35 Ast (Sgot) 27 U/L 5-34 Total Bilirubin 0.5 mg/dL 0.2-1.3 GFR Non- >60 ml/min/1.73m^ >=60 GFR >60 ml/min/1.73m^ >=60 Lipid Profile 10/12/2016 Cholesterol 233 mg/dL High 120-200 Triglycerides 126 mg/dL 30-200 HDL Cholesterol 52 mg/dL 30-85 LDL (Calculated) 156 CALC High 0-129 VLDL Cholesterol 25 mg/dL 0-50 HDL Risk Factor 4.5 CALC High 0.0-4.4 CBC Auto Diff 02/02/2016 White Blood Count 9.7 10^3/uL 3.5-10.8 Red Blood Count 5.02 10^6/uL 4.0-5.4 Hemoglobin 14.7 g/dL 12.0-16.0 Hematocrit 45 % 35-47 Mean Corpuscular Volume 89 fL 80-97 Mean Corpuscular Hemoglobin 29 pg 27-31 Mean Corpuscular HGB Conc 33 g/dL 31-36 Red Cell Distribution Width 14 % 10.5-15 Platelet Count 344 10^3/uL 150-450 Mean Platelet Volume 8 um3 7.4-10.4 Abs Neutrophils 7.3 10^3/uL 1.5-7.7 Abs Lymphocytes 1.4 10^3/uL 1.0-4.8 Abs Monocytes 0.9 10^3/uL High 0-0.8 Abs Eosinophils 0 10^3/uL 0-0.6 Abs Basophils 0.1 10^3/uL 0-0.2 Abs Nucleated RBC 0 10^3/uL Granulocyte % 75.4 % 38-83 Lymphocyte % 13.9 % Low 25-47 Monocyte % 9.5 % High 1-9 Eosinophil % 0.4 % 0-6 Basophil % 0.8 % 0-2 Nucleated Red Blood Cells % 0 Comp Metabolic Panel 02/02/2016 Sodium 131 mmol/L Low 133-145 Potassium 3.9 mmol/L 3.5-5.0 Chloride 95 mmol/L Low 101-111 Co2 Carbon Dioxide 28 mmol/L 22-32 Anion Gap 8 mmol/L 2-11 Glucose 143 mg/dL High 70-100 Blood Urea Nitrogen 15 mg/dL 6-24 Creatinine 0.71 mg/dL 0.51-0.95 BUN/Creatinine Ratio 21.1 High 8-20 Calcium 9.4 mg/dL 8.6-10.3 Total Protein 7.7 g/dL 6.4-8.9 Albumin 4.1 g/dL 3.2-5.2 Globulin 3.6 g/dL 2-4 Albumin/Globulin Ratio 1.1 1-3 Total Bilirubin 0.50 mg/dL 0.2-1.0 Alkaline Phosphatase 25 U/L Low 34-104 Alt 18 U/L 7-52 Ast 26 U/L 13-39 Egfr Non- 84.3 >60 Egfr 108.4 >60 7 Laboratory test finding 12/16/2015 Lipase 9 U/L Low 11.0-82.0 Creatine Kinase(CK) 68 U/L 10-223 Magnesium 2.0 mg/dL 1.9-2.7 TSH (Thyroid Stim Horm) 2.41 ?IU/mL 0.34-5.60 Free T4 (Free Thyroxine) 1.19 ng/dL High 0.61-1.12 Comp Metabolic Panel 12/16/2015 Sodium 133 mmol/L 133-145 Chloride 99 mmol/L Low 101-111 Co2 Carbon Dioxide 26 mmol/L 22-32 Glucose 173 mg/dL High 70-100 Blood Urea Nitrogen 15 mg/dL 6-24 Creatinine 0.73 mg/dL 0.51-0.95 BUN/Creatinine Ratio 20.5 High 8-20 Calcium 9.2 mg/dL 8.6-10.3 Total Protein 7.2 g/dL 6.4-8.9 Albumin 3.9 g/dL 3.2-5.2 Globulin 3.3 g/dL 2-4 Albumin/Globulin Ratio 1.2 1-3 Total Bilirubin 0.50 mg/dL 0.2-1.0 Alkaline Phosphatase 26 U/L Low 34-104 Alt 25 U/L 7-52 Egfr Non- 81.6 >60 Egfr 104.9 >60 8 Potassium 4.4 mmol/L 3.5-5.0 Anion Gap 8 mmol/L 2-11 Ast 30 U/L 13-39 Laboratory test finding 12/16/2015 Partial Thrombo Time 38.0 seconds High 26.0-36.3 9 PTT B Type Natriuretic Peptide 475 pg/mL High 10 Lactic Acid 1.2 mmol/L 0.5-2.0 11 Troponin I 0.00 ng/mL <0.03 12 Inr/Protime 12/16/2015 Inr 1.67 High 0.89-1.11 CBC Auto Diff 12/16/2015 White Blood Count 12.6 10^3/uL High 3.5-10.8 Red Blood Count 4.06 10^6/uL 4.0-5.4 Hemoglobin 12.0 g/dL 12.0-16.0 Hematocrit 37 % 35-47 Mean Corpuscular Volume 92 fL 80-97 Mean Corpuscular Hemoglobin 30 pg 27-31 Mean Corpuscular HGB Conc 32 g/dL 31-36 Red Cell Distribution Width 14 % 10.5-15 Platelet Count 482 10^3/uL High 150-450 Mean Platelet Volume 8 um3 7.4-10.4 Abs Neutrophils 11.4 10^3/uL High 1.5-7.7 Abs Lymphocytes 0.6 10^3/uL Low 1.0-4.8 Abs Monocytes 0.5 10^3/uL 0-0.8 Abs Eosinophils 0 10^3/uL 0-0.6 Abs Basophils 0 10^3/uL 0-0.2 Abs Nucleated RBC 0 10^3/uL Granulocyte % 90.8 % High 38-83 Lymphocyte % 4.7 % Low 25-47 Monocyte % 4.1 % 1-9 Eosinophil % 0 % 0-6 Basophil % 0.4 % 0-2 Nucleated Red Blood Cells % 0 Laboratory test finding 12/16/2015 Stool Occult Blood SEE RESULT BELOW 13, 14 Laboratory test finding 12/16/2015 C Difficile PCR SEE RESULT BELOW 15 Stool Culture SEE RESULT BELOW 16 Stool Norovirus Ag NOT DETECTED 17 Basic Metabolic Profile 10/21/2015 Sodium 139 mEq/L 134-149 Potassium 5.0 mEq/L 3.6-5.5 Chloride 101 mEq/L 94-112 Carbon Dioxide 24 mEq/L 21-32 Glucose 149 mg/dL High 70-105 18 BUN 22 mg/dL 6-26 Creatinine 0.7 mg/dL 0.6-1.4 BUN/Creat Ratio 31.4 CALC 8.0-36.0 Calcium 9.5 mg/dL 8.6-10.2 GFR Non- >60 ml/min/1.73m^ >=60 GFR >60 ml/min/1.73m^ >=60 Laboratory test finding 10/21/2015 Magnesium, Serum 2.0 mEq/L 1.2-2.1 Ast (Sgot) 35 U/L High 5-34 19 Laboratory test finding 09/17/2014 Free T4 1.35 ng/dL 0.75-1.54 TSH 2.54 mIU/L 0.50-6.00 Comprehensive Metabolic Prof 04/16/2014 Sodium 138 mEq/L 134-149 Potassium 4.7 mEq/L 3.6-5.5 Chloride 102 mEq/L 94-112 Carbon Dioxide 29 mEq/L 21-32 Glucose 120 mg/dL High 70-105 20 BUN 23 mg/dL 6-26 Creatinine 0.7 mg/dL 0.6-1.4 BUN/Creat Ratio 32.9 CALC 8.0-36.0 Calcium 10.1 mg/dL 8.6-10.2 Total Protein 8.3 g/dL 6.4-8.3 Albumin 4.6 g/dL 3.8-5.5 Globulin 3.8 g/dL 2.0-4.8 A/G Ratio 1.2 CALC 0.6-2.3 Alk. Phosphatase 31 U/L 30-110 Alt (SGPT) 38 U/L High 7-35 Ast (Sgot) 35 U/L High 5-34 Total Bilirubin 0.4 mg/dL 0.2-1.3 Laboratory test finding 04/16/2014 TSH 3.35 mIU/L 0.50-6.00 Free T4 1.26 ng/dL 0.75-1.54 Laboratory test finding 11/07/2013 Quickstrep NEGATIVE Negative Throat - Beta Strep Fma negative@48hrs Laboratory test finding 04/06/2013 Digoxin 0.7 ng/mL 0.5-1.5 21 Basic Metabolic Panel 04/06/2013 Sodium 137 mmol/L 133-145 Potassium 4.6 mmol/L 3.5-5.0 Chloride 98 mmol/L Low 101-111 Co2 Carbon Dioxide 29.0 mmol/L 22-32 Anion Gap 10.0 mmol/L 2-11 Glucose 111 mg/dL High 70-100 Blood Urea Nitrogen 11 mg/dL 6-24 Creatinine 0.80 mg/dL 0.50-1.40 BUN/Creatinine Ratio 13.8 8-20 Calcium 8.9 mg/dL 8.1-9.9 Egfr Non- 74.2 >60 Egfr 95.4 >60 22 CBC Auto Diff 03/18/2013 White Blood Count 14.6 10^3/uL High 4.8-10.8 Red Blood Count 4.34 10^6/uL 4.0-5.4 Hemoglobin 13.1 g/dL 12.0-16.0 Hematocrit 39 % 35-47 Mean Corpuscular Volume 91 fL 80-97 Mean Corpuscular Hemoglobin 30 pg 27-31 Mean Corpuscular HGB Conc 33 g/dL 31-36 Red Cell Distribution Width 13 % 10.5-15 Platelet Count 490 10^3/uL High 150-450 Mean Platelet Volume 9 um3 7.4-10.4 Abs Neutrophils 12.6 10^3/uL High 1.5-7.7 Abs Lymphocytes 1.2 10^3/uL 1.0-4.8 Abs Monocytes 0.8 10^3/uL 0-0.8 Abs Eosinophils 0 10^3/uL 0-0.6 Abs Basophils 0.1 10^3/uL 0-0.2 Abs Nucleated RBC 0.01 10^3/uL Manual Differential 03/18/2013 Neutrophil % 82 % 38-83 Band % 6 % 0-8 Lymphocytes % 6 % Low 25-47 Monocytes % 4 % 0-13 Basophil % 2 % 0-2 RBC Morphology Normal Normal Comp Metabolic Panel 03/18/2013 Sodium 128 mmol/L Low 133-145 Potassium 5.0 mmol/L 3.5-5.0 Chloride 93 mmol/L Low 101-111 Co2 Carbon Dioxide 23.0 mmol/L 22-32 Anion Gap 12.0 mmol/L High 2-11 Glucose 148 mg/dL High 70-100 Blood Urea Nitrogen 20 mg/dL 6-24 Creatinine 1.10 mg/dL 0.50-1.40 BUN/Creatinine Ratio 18.2 8-20 Calcium 8.9 mg/dL 8.1-9.9 Total Protein 6.7 g/dL 6.2-8.1 Albumin 3.0 g/dL Low 3.6-5.4 Globulin 3.7 g/dL 2-4 Albumin/Globulin Ratio 0.8 Low 1-3 Total Bilirubin 0.5 mg/dL 0.4-1.5 Alkaline Phosphatase 37 U/L 30-110 Alt 33 U/L 14-54 Ast 29 U/L 12-42 Egfr Non- 51.4 >60 Egfr 66.1 >60 23 Laboratory test finding 03/18/2013 C Reactive Protein 24.9 mg/dL High Less than 0.5 Laboratory test finding 02/22/2013 TSH 2.46 mIU/L 0.50-6.00 Free T4 1.33 ng/dL 0.75-1.54 Laboratory test finding 02/22/2013 Hemoglobin A1c 6.1% % High 4.1-5.7 ([facility]) Lipid Profile 02/22/2013 Cholesterol 229 mg/dL High 120-200 HDL 44 mg/dL 30-85 Triglycerides 129 mg/dL 30-200 HDL Risk Factor 5.2 CALC High 0.0-4.4 LDL (Calculated) 159 CALC High 0-129 VLDL (Calculated) 26 mg/dL 0-50 Laboratory test 08/22/2012 Hemoglobin A1c 5.9 % High 4.1-5.7 finding ([facility],CX) Laboratory test 01/21/2012 Acid Fast Culture 24 finding --- <SEE NOTE> Manual Differential 01/18/2012 Polysegmented 90 % High 38-83 Neutrophil Lymphocyte 6 % Low 25-47 Monocyte 3 % 0-13 Eosinophil 1 % 0-6 RBC Morphology NORMAL CBC Auto Diff 01/18/2012 White Blood Count 10.8 CUMM 4.8-10.8 Red Cell Count 4.54 CUMM 4.2-5.4 Hemoglobin 14.2 g/dL 12.0-16.0 Hematocrit 42 % 35-47 Mean Corpuscular Volume 93 um3 79-97 Mean Corpuscular Hemoglob 31 pg 27-31 Mean Corpuscular HGB Cone 33 g/dL 32-36 Redcell Distribution WDTH 14 % 10.5-15 Platelet Count 321 CUMM 150-450 Mean Platelet Volume 9.4 um3 7.4-10.4 Absolute Neutrophil Count 9.7 High 1.5-7.7 25 Laboratory test finding 01/18/2012 PTT (Aptt) 27.4 SEC 25.1-38.5 BNP Evaluatr 325.0 pg/mL High 0-100 Comp Metabolic Panel 01/18/2012 Sodium 127 mmol/L Low 135-145 Potassium 4.7 mmol/L 3.5-5.0 Chloride 98 mmol/L Low 101-111 Co2 (Carbon Dioxide) 21.0 mmol/L Low 22-32 Anion Gap 8.0 mmol/L 2-11 26 Glucose 327 mg/dL High 70-100 BUN 12 mg/dL 6-24 Creatinine 1.0 mg/dL 0.50-1.40 One Over Creatinine 1.00 BUN/Creatinine Ratio 12.0 8-20 Calcium 8.6 mg/dL 8.1-9.9 Total Protein 6.4 GM/DL 6.2-8.1 Albumin 3.3 GM/DL Low 3.6-5.4 Globulin 3.1 GM/DL 2-4 Albumin/Globulin Ratio 1.1 1-3 Bilirubin Total 0.6 mg/dL 0.4-1.5 27 Alkaline Phosphatase 27 U/L Low 30-110 Alt (SGPT) 42 U/L 14-54 Ast (Sgot) 27 U/L 12-42 eGFR Non- 57.6 > 60 eGFR 74.0 > 60 28 Laboratory test finding 01/18/2012 Magnesium 2.0 mg/dL 1.7-2.6 CPK (Creatine Kinase) 70 U/L 0-170 Protime 01/18/2012 Inr 1.10 0.88-1.13 29 Protime 13.1 SEC 10.3-13.5 30 CKMB 01/18/2012 CKMB In NG/ML 2.8 NG/ML 0.3-4.0 % CKMB 4 %MB 0-9 31 Laboratory test 01/18/2012 Troponin-I 0.01 NG/ML 0-0.06 32 finding Laboratory test 12/31/2011 Hemoglobin A1c 5.9 % High 4.1-5.7 finding ([facility]ma/[facility],CX) Laboratory test 12/14/2011 TSH 2.87 mIU/L 0.50-6.00 finding Laboratory test 12/14/2011 Glucose, Serum 143 mg/dL High 70-105 finding (Fma/[facility]/CTX) Laboratory test 09/21/2011 TSH 8.22 mIU/L High 0.50-6.00 33 finding Lipid Profile 09/21/2011 Cholesterol 231 mg/dL High 120-200 HDL 45 mg/dL 30-85 Triglycerides 161 mg/dL 30-200 HDL Risk Factor 5.2 CALC High 0.0-4.0 LDL (Calculated) 154 CALC High 0-129 VLDL (Calculated) 32 mg/dL 0-50 Comprehensive Metabolic Prof 09/21/2011 Albumin 4.6 g/dL 3.8-5.5 Alk. Phos. 33 U/L 30-110 Alt (SGPT) 24 U/L 7-35 Ast (Sgot) 23 U/L 5-34 BUN 18 mg/dL 6-26 Calcium 9.6 mg/dL 8.6-10.2 Chloride 97 mEq/L 94-112 Creatinine 1.0 mg/dL 0.6-1.4 Carbon Dioxide 30 mEq/L 21-32 Glucose 122 mg/dL High 70-105 34 Sodium 137 mEq/L 134-149 Total Bilirubin 0.5 mg/dL 0.2-1.3 Total Protein 7.6 g/dL 6.3-8.1 Potassium 4.8 mEq/L 3.6-5.5 Globulin 2.9 g/dL 2.0-4.8 A/G Ratio 1.6 Calc 0.6-2.2 BUN/Creat Ratio 18.1 Calc 8.0-36.0 CBC Electronic ([facility]) 04/20/2011 WBC 7.5 3.6-9.6 RBC 4.50 3.90-5.70 Hemoglobin (Fma/[facility]/CTX) 14.2 g/dL 12.1 - 17.2 Hematocrit (a/CMC/CTX) 41.2 % 36.1 - 50.3 Platelets 368 10^3/ul 150-400 Lymph% 26.9 20.5-51.1 Mixed% 11.2 Neutrophils % 61.9 Mean Corpuscular Vol 92.9 82.2-97.4 Mean Corpuscular Hemoglobin 31.6 27.6-33.3 Mean Corpuscular Hemo Concen 34.0 32.0-36.0 RDW 14.9 High 11.6-13.7 Mean Platelet Volume 10.9 6.5-11.0 Comprehensive Metabolic Prof 04/20/2011 Albumin 4.5 g/dL 3.8-5.5 Alk. Phos. 34 U/L 30-110 Alt (SGPT) 30 U/L 7-35 Ast (Sgot) 24 U/L 5-34 BUN 22 mg/dL 6-26 Calcium 9.7 mg/dL 8.6-10.2 Chloride 98 mEq/L 94-112 Creatinine 0.9 mg/dL 0.6-1.4 Carbon Dioxide 27 mEq/L 21-32 Glucose 116 mg/dL High 70-105 35 Sodium 134 mEq/L 134-149 Total Bilirubin 0.4 mg/dL 0.2-1.3 Total Protein 7.5 g/dL 6.3-8.1 Potassium 4.3 mEq/L 3.6-5.5 Globulin 3.0 g/dL 2.0-4.8 A/G Ratio 1.5 Calc 0.6-2.2 BUN/Creat Ratio 23.9 Calc 8.0-36.0 Lipid Profile 04/20/2011 Cholesterol 237 mg/dL High 120-200 HDL 44 mg/dL 30-85 Triglycerides 133 mg/dL 30-200 HDL Risk Factor 5.4 CALC High 0.0-4.0 LDL (Calculated) 166 CALC High 0-129 VLDL (Calculated) 27 mg/dL 0-50 Laboratory test finding 03/17/2011 Inr (Fma) 1.5 Low 2.0-3.0 Laboratory test finding 02/11/2011 Inr (Fma) 2.2 2-3 Laboratory test finding 01/21/2011 Inr (Fma) 2.6 2.0-3.0 Laboratory test finding 01/05/2011 Inr (Fma) 2.2 2.0-3.0 Laboratory test finding 12/25/2010 Inr (Fma) 2.4 2-3 Laboratory test finding 12/22/2010 Alt (SGPT) 42 U/L 14-54 Ast (Sgot) 44 U/L High 12-42 Laboratory test finding 12/19/2010 Inr (Fma) 4.5 High 2.0-3.0 Protime 12/15/2010 Inr 5.34 High 0.82-1.17 36 Protime 68.8 SEC High 10.2-14.8 37 Laboratory test finding 12/15/2010 Alt (SGPT) 63 U/L High 14-54 Ast (Sgot) 42 U/L 12-42 Hepatic 12/12/2010 Albumin 4.4 g/dL 3.8-5.5 Alk. Phos. 34 U/L 30-110 Alt (SGPT) 70 U/L High 7-35 Ast (Sgot) 59 U/L High 5-34 Total Bilirubin 0.4 mg/dL 0.2-1.3 Total Protein 7.3 g/dL 6.3-8.1 Direct Bilirubin 0.2 mg/dL 0.0-0.6 Globulin 2.9 g/dL 2.0-4.8 A/G Ratio 1.5 Calc 0.6-2.2 Indirect Bilirubin 0.21 0.10-1.00 Laboratory test finding 12/12/2010 Inr (Fma) 1.8 Low 2.0-3.0 MRSA/Vre Screen 12/09/2010 MRSA/Vre Culture [facility] 38 MRSA/Vre Screen 11/08/2010 MRSA/Vre Culture [facility] 39 Pleural Fluid Cell Count 11/08/2010 Pleural Fluid Appearance CLEAR 40 Pleural Fluid Volume 3.0 40 Pleural Fluid WBC 4680 40 Pleural Fluid RBC 495 40 Pleural Fluid Polys 16 40 Pleural Fluid Lymph 73 40 Pleural Fluid Beltrami 3 40 Pleural Fluid Non Hemo 8 40 Pleural Fluid Comments (SEE NOTE) 40, 41 CBC Auto Diff 11/07/2010 White Blood Count 14.6 CUMM High 4.8-10.8 Red Cell Count 4.42 CUMM 4.2-5.4 Hemoglobin 13.4 g/dL 12.0-16.0 Hematocrit 40 % 35-47 Mean Corpuscular Volume 90 um3 79-97 Mean Corpuscular Hemoglob 30 pg 27-31 Mean Corpuscular HGB Cone 34 g/dL 32-36 Redcell Distribution WDTH 13 % 10.5-15 Platelet Count 437 CUMM 150-450 Mean Platelet Volume 8.3 um3 7.4-10.4 Manual Differential 11/07/2010 Polysegmented Neutrophil 82 % 38-83 Band Neutrophil 3 % 0-8 Lymphocyte 12 % Low 25-47 Monocyte 3 % 0-13 Absolute Neutrophil Count 12.4 Anisocytosis SLIGHT Comp Metabolic Panel 11/07/2010 Sodium 126 mmol/L Low 135-145 Potassium 3.9 mmol/L 3.5-5.0 Chloride 89 mmol/L Low 101-111 Co2 (Carbon Dioxide) 26.0 mmol/L 22-32 Anion Gap 11.0 mmol/L 2-11 42 Glucose 162 mg/dL High 70-100 BUN 16 mg/dL 6-24 Creatinine 0.85 mg/dL 0.50-1.40 One Over Creatinine 1.10 BUN/Creatinine Ratio 18.8 8-20 Calcium 8.8 mg/dL 8.1-9.9 Total Protein 7.3 GM/DL 6.2-8.1 Albumin 3.5 GM/DL Low 3.6-5.4 Globulin 3.8 GM/DL 2-4 Albumin/Globulin Ratio 0.9 Low 1-3 Bilirubin Total 0.5 mg/dL 0.4-1.5 43 Alkaline Phosphatase 34 U/L 30-110 Alt (SGPT) 47 U/L 14-54 Ast (Sgot) 35 U/L 12-42 eGFR Non- 69.7 > 60 eGFR 89.6 > 60 44 Laboratory test finding 11/07/2010 Magnesium 2.1 mg/dL 1.7-2.6 Troponin-I 0.02 NG/ML 0-0.06 45 TSH 4.04 MIU/ML 0.34-5.60 Protime 11/07/2010 Inr 1.33 High 0.82-1.17 46 Protime 15.9 SEC High 10.2-14.8 47 Laboratory test finding 11/07/2010 PTT (Aptt) 27.9 25.15-38.53 BNP Evaluatr 438.0 pg/mL High 0-100 CBC Manual Diff-a 11/07/2010 WBC 12.2 High 3.6-9.6 RBC 4.67 3.90-5.70 Hemoglobin (Fma/[facility]/CTX) 13.6 g/dL 12.1 - 17.2 Hematocrit (Fma/[facility]/CTX) 42.2 % 36.1 - 50.3 Mean Corpuscular Vol 90 82.2-97.4 Mean Corpuscular Hemoglobin 29.1 27.6-33.3 Mean Corpuscular Hemo Concen 32.2 32.0-36.0 Platelets 434 10^3/ul High 150-400 RDW 11.8 11.6-13.7 Mean Platelet Volume 7.5 6.5-11.0 Neutrophil 67 Band 16 Lymphocytes 15 Monocyte 1 Eosinophils 1 Comprehensive Metabolic Prof 11/07/2010 Albumin 4.5 g/dL 3.8-5.5 Alk. Phos. 30 U/L 30-110 Alt (SGPT) 46 U/L High 7-35 48 Ast (Sgot) 29 U/L 5-34 BUN 19 mg/dL 6-26 Calcium 9.4 mg/dL 8.6-10.2 Chloride 96 mEq/L 94-112 Creatinine 1.0 mg/dL 0.6-1.4 Carbon Dioxide 23 mEq/L 21-32 Glucose 182 mg/dL High 70-105 49 Sodium 129 mEq/L Low 134-149 50 Total Bilirubin 0.3 mg/dL 0.2-1.3 Total Protein 7.4 g/dL 6.3-8.1 Potassium 4.7 mEq/L 3.6-5.5 Globulin 2.9 g/dL 2.0-4.8 A/G Ratio 1.6 Calc 0.6-2.2 BUN/Creat Ratio 18.5 Calc 8.0-36.0 Cytology Non-Sales Clerk 11/07/2010 Cytology Non Sales Clerk <SEE 51 NOTE> CBC Manual 08/28/2010 WBC 9.3 3.6-9.6 Diff-Fma RBC 5.13 3.90-5.70 Hemoglobin (Fma/[facility]/CTX) 15.6 g/dL 12.1 - 17.2 Hematocrit (Fma/[facility]/CTX) 46.7 % 36.1 - 50.3 Mean Corpuscular Vol 91 82.2-97.4 Mean Corpuscular Hemoglobin 30.4 27.6-33.3 Mean Corpuscular Hemo Concen 33.4 32.0-36.0 Platelets 437 10^3/ul High 150-400 RDW 12.4 11.6-13.7 Mean Platelet Volume 7.7 6.5-11.0 Neutrophil 70 Band 1 Lymphocytes 28 Monocyte 1 Anisocytosis (Fma/[facility]) SLIGHT Comment plts slt incre Comprehensive Metabolic Prof 08/28/2010 Albumin 5.1 g/dL 3.8-5.5 Alk. Phos. 34 U/L 30-110 Alt (SGPT) 46 U/L High 7-35 Ast (Sgot) 108 U/L High 5-34 BUN 18 mg/dL 6-26 Calcium 9.4 mg/dL 8.6-10.2 Chloride 98 mEq/L 94-112 Creatinine 0.8 mg/dL 0.6-1.4 Carbon Dioxide 20 mEq/L Low 21-32 52 Glucose 122 mg/dL High 70-105 53 Sodium 139 mEq/L 134-149 Total Bilirubin 0.6 mg/dL 0.2-1.3 Total Protein 9.4 g/dL High 6.3-8.1 54 Potassium 6.9 mEq/L High 3.6-5.5 55 Globulin 4.2 g/dL 2.0-4.8 A/G Ratio 1.2 Calc 0.6-2.2 BUN/Creat Ratio 21.8 Calc 8.0-36.0 Laboratory test finding 08/28/2010 Free T3 2.86 pg/mL 2.00-4.90 Free T4 1.33 ng/dL 0.75-1.54 TSH 4.79 mIU/L 0.50-6.00 Laboratory test finding 02/04/2010 Free T3 2.67 pg/mL 2.00-4.90 Free T4 1.26 ng/dL 0.75-1.54 TSH 2.31 mIU/L 0.50-6.00 Cytology Non-Sales Clerk 12/27/2009 Cytology Non Sales Clerk <SEE NOTE> 56 Body Fluid C&S 12/27/2009 Body Fluid Smear NO ORGANISMS SEE <SEE NOTE> 57 Body Fluid Cult 12/27/2009 Body Fluid Cult NG4 58 Sens Sens Pleural Fluid Cell 12/27/2009 Pleural Fluid CLOUDY,RED Count Appearance Pleural Fluid Volume 3.0 Pleural Fluid WBC 2300 Pleural Fluid RBC [address] Pleural Fluid Polys 7 Pleural Fluid Lymph 86 Pleural Fluid Beltrami 1 Pleural Fluid Non Hemo 6 Pleural Fluid Comments (SEE NOTE) 59 Blood Culture 12/25/2009 Aerobic Culture Bottle NG5 60 Anaerobic Culture Bottle 12/25/2009 Anaerobic Culture Bottle NG5 61 Comp Metabolic Panel 12/25/2009 Sodium 134 mmol/L Low 135-145 Potassium 4.0 mmol/L 3.5-5.0 Chloride 102 mmol/L 101-111 Co2 (Carbon Dioxide) 23.0 mmol/L 22-32 Anion Gap 9.0 mmol/L 2-11 62 Glucose 135 mg/dL High 70-100 63 BUN 16 mg/dL 6-24 Creatinine 0.84 mg/dL 0.50-1.40 One Over Creatinine 1.10 BUN/Creatinine Ratio 19.0 8-20 Calcium 9.1 mg/dL 8.1-9.9 64 Total Protein 7.8 GM/DL 6.2-8.1 Albumin 3.9 GM/DL 3.6-5.4 Globulin 3.9 GM/DL 2-4 Albumin/Globulin Ratio 1.0 1-3 Bilirubin Total 0.6 mg/dL 0.4-1.5 65 Alkaline Phosphatase 35 U/L 30-110 Alt (SGPT) 50 U/L 14-54 Ast (Sgot) 35 U/L 12-42 eGFR Non- 75.4 > 60 eGFR 91.2 > 60 66 Laboratory test finding 12/25/2009 Troponin-I (TnI) 0.01 NG/ML 67 CBC With Manual Diff 12/25/2009 White Blood Count 11.1 CUMM High 4.8-10.8 Red Cell Count 4.50 CUMM 4.2-5.4 Hemoglobin 13.6 g/dL 12.0-16.0 Hematocrit 40 % 35-47 Mean Corpuscular Volume 90 um3 79-97 Mean Corpuscular Hemoglob 30 pg 27-31 Mean Corpuscular HGB Cone 34 g/dL 32-36 Redcell Distribution WDTH 14 % 10.5-15 Platelet Count 377 CUMM 150-450 Mean Platelet Volume 8.0 um3 7.4-10.4 Polysegmented Neutrophil 81 % 38-83 Band Neutrophil 1 % 0-8 Lymphocyte 2 % Low 25-47 Monocyte 9 % 0-13 Atypical Lymph 7 % High 0-6 Absolute Neutrophil Count 9.1 Anisocytosis 1+ Poikilocytosis SLIGHT Macrocytosis MODERATE Polychromasia SLIGHT Laboratory test finding 08/23/2008 Uric Acid 5.6 mg/dL 2.5-9.2 Complete Blood Count 08/23/2008 WBC 9.9 x10^3/uL High 3.6-9.6 Gran# 7.3 x10^3/uL High 1.5-7.2 Gran% 73.3 % 42.2-75.2 HCT 44 % 36-50 HGB 14.8 g/dL 12.1-17.2 Lymph# 2.0 x10^3/uL 0.7-4.9 Lymph% 20.3 % Low 20.5-51.1 MCH 29.8 pg 27.6-33.3 MCV 88.0 fL 82.2-97.4 MCHC 33.8 g/dL 33.0-35.5 Mo# 0.6 x10^3/uL 0.1-0.9 Mo% 6.4 % 1.7-9.3 MPV 8.5 fL 7.4-10.4 PLT 431 x10^3/uL High 150-400 RBC 4.97 x10^6/uL 3.90-5.70 RDW 13.3 % 11.6-13.7 Laboratory test finding 08/23/2008 C-Reactive Protein 1.6 mg/dL High 0.0- 0.5 68 Antinuclear AB (Marcela) NEGATIVE Negative 68, 69 Rheumatoid Factor (RF) <11.0 IU/mL 0.0-20.0 68 Laboratory test finding 08/23/2008 Sed Rate (Fma/[facility]) 22 mm Laboratory test finding 05/12/2007 Surgical Pathology SEE NOTE 70 Comprehensive Metabolic 10/28/2005 BUN 16 mg/dL 4-18 71 Creatinine, Serum 1.2 mg/dL 0.5-1.2 71 Sodium 141 mmol/L 136-146 71 Potassium 4.4 mmol/L 3.5-5.3 71 Chloride 106 mmol/L 98-110 71 Carbon Dioxide 22 mmol/L 20-32 71 Albumin 4.6 g/dL 3.5-4.7 71 Protein, Total 7.4 g/dL 6.4-8.2 71 Calcium 9.7 mg/dL 8.4-10.4 71 Alkaline Phosphatase 37 U/L 10-118 71 Sgot (Ast) 24 U/L 3-30 71 SGPT (Alt) 25 U/L 7-40 71 Bilirubin, Total 0.33 mg/dL 0.30-1.20 71 Glucose 146 mg/dL High 70-100 71 CBC W/Manual Diff 10/28/2005 Manual Differential PERFORMED 71 WBC 11.2 x103 High 4.3-10.9 71 RBC 4.67 x106 3.80-5.30 71 Hemoglobin 14.5 g/dL 11.8-15.8 71 Hematocrit 42.2 % 35.0-47.0 71 MCV 90.3 fl 82.0-98.0 71 MCH 31.0 pg 27.5-33.5 71 MCHC 34.3 g/dL 32.0-36.0 71 RDW 13.4 % 11.5-14.5 71 Platelet Count 275 x103 130-400 71 MPV 10.2 fl 6.5-10.5 71 Laboratory test finding 10/28/2005 Sedimentation Rate 15 MM/HR 0-20 71 TSH (Thyrotropin) 7.540 uIU/ml High 0.350-5.500 71 C-Reactive Protein 3.7 mg/dL High 0.0-0.5 71 Lipid Profile 10/28/2005 Cholesterol, Total 204 mg/dL High 120-200 71, 72 HDL Cholesterol 50 mg/dL 40-60 71 LDL Cholesterol, Calc. 129 mg/dL <130 71, 73 Triglycerides 125 mg/dL 71, 74 LDL/HDL Cholesterol 2.6 71, 75 Chol/HDL Cholesterol 4.1 71, 76 DFMPH (Man Diff For [facility]) 10/28/2005 Segmented Neutrophils 58.0 % 44.0 -74.0 71 Band 3.0 % 0.0-4.0 71 Lymphocytes 29.0 % 15.0-45.0 71 Monocytes 7.0 % 2.0-13.0 71 Eosinophils 1.0 % 0.0-6.0 71 Basophils 2.0 % 0.0-2.0 71 Neutrophil Absolute 6.8 x103 1.4-7.0 71 Lymphocytes Absolute 3.2 x103 1.0-3.4 71 Monocyte Absolute 0.8 x103 0.2-1.0 71 Eosinophil Absolute 0.1 x103 0.0-0.5 71 Basophil Absolute 0.2 x103 0.0-0.2 71 Laboratory test finding 10/28/2005 GFR (Calculated) 51 71, 77 Laboratory test finding 10/28/2005 Thinprep Pap W/HPV SCR. Of SEE IMAGE LIYA/ASCUS Lipid Profile 05/22/2004 Triglycerides 207 mg/dL 78 Cholesterol, Total 296 mg/dL High 120.0 - 200.0 79 HDL Cholesterol 51 mg/dL 40.0 - 60.0 LDL Cholesterol, Calc. 204 mg/dL <130 80 LDL/HDL Cholesterol 4.0 81 Chol/HDL Cholesterol 5.8 82 Comprehensive Metabolic 05/22/2004 Glucose 111 mg/dL High 61.0 - 110.0 BUN 16 mg/dL 4.0 - 18.0 Creatinine, Serum 1.3 mg/dL High 0.5 - 1.2 Sodium 141 mmol/L 136.0 - 146.0 Potassium 4.4 mmol/L 3.5 - 5.3 Chloride 104 mmol/L 98.0 - 107.0 Carbon Dioxide 26 mmol/L 20.0 - 32.0 Albumin 4.8 g/dL High 3.5 - 4.7 Protein, Total 8.4 g/dL High 6.4 - 8.2 Calcium 10.8 mg/dL High 8.4 - 10.6 Alkaline Phosphatase 43 U/L 10.0 - 118.0 Sgot (Ast) 29 U/L 3.0 - 30.0 SGPT (Alt) 31 U/L 7.0 - 40.0 Bilirubin, Total 0.38 mg/dL 0.3 - 1.2 CBC W/Manual Diff 05/22/2004 WBC 11.0 x10*3 High 4.3 - 10.9 RBC 4.78 x10*6 3.8 - 5.3 Hemoglobin 14.7 g/dL 11.8 - 15.8 Hematocrit 44.4 % 35.0 - 47.0 MCV 92.8 fl 82.0 - 98.0 MCH 30.7 pg 27.5 - 33.5 MCHC 33.1 g/dL 32.0 - 36.0 RDW 14.7 % High 11.5 - 14.5 Platelet Count 363 x10*3 130.0 - 400.0 MPV 9.0 fl 6.5 - 10.5 Manual Differential PERFORMED Manual Differential For CBC W/Man Diff ORDERED Laboratory test finding 05/22/2004 Hemoglobin A1c 6.5 % 83 GFR (Calculated) 47 84 DFMPH (Man Diff For 05/22/2004 Segmented Neutrophils 77.0 % High 44.0 - 74.0 Centrex) Band 0.0 % 0.0 - 4.0 Lymphocytes 15.0 % 15.0 - 45.0 Monocytes 7.0 % 2.0 - 13.0 Eosinophils 1.0 % 0.0 - 6.0 Basophils 0.0 % 0.0 - 2.0 Neutrophil Absolute 8.5 x10*3 High 1.4 - 7.0 Lymphocytes Absolute 1.7 x10*3 1.0 - 3.4 Monocyte Absolute 0.8 x10*3 0.2 - 1.0 Eosinophil Absolute 0.1 x10*3 0.0 - 0.5 Basophil Absolute 0.0 x10*3 0.0 - 0.2 Laboratory test finding 05/22/2004 Comments SEE IMAGE FOR PAP Ua - Micro (Fma New) 05/22/2004 Appearance CLEAR Color LT YELLOW Glucose - Bilirubin - Ketones - SP Grav >=1.005 Blood - PH 7.0 Protein - Urobil 0.2 Nitrite - Leukocytes 1+ Hyaline - /Lpf Granular - /Lpf WBC'S 3-5 RBC'S 0-1 Mucus - /Lpf Epith FEW Bacteria TRACE Amorphous SMALL AMOUNT /Lpf Crystals - /Lpf Comments - 1 SEE RESULT BELOW Name: KALLIE PATEL : [address]: James Mahan MD Acct: [id number] Unit: [id number] AGE: 62 Location: ED Re11/25/17 SEX: F Status: REG ER SPEC: [id number] ZAYNAB: 11/26/[address] [facility] [address]: Garrison Argueta MD REQ: [id number] RECD: 11/26/17 STATUS: [facility] DE [facility] DR: James Chirinos MD _ SOURCE: NASAL SPDESC: ORDERED: Flu A B Request Procedure Result Reported Site Rapid Influenza A B Request Final 11/26/17- 0442 ML Specimen received for Influenza A/B Molecular testing * ML - Main Lab . END OF REPORT DEPARTMENT OF PATHOLOGY, [address] [place] [address] Jaspreet Valverde M.D. Director [facility] # [id number] 2 Verbal to [id number] by [id number] at 0108 on 11/26/17. Results read back accurately. 3 Reference ranges based on room air. 4 [facility] Severe Sepsis and Septic Shock Management Bundle Measure requires all lactic acids initially measuring >2.0 mmol/L be repeated. 5 RESULTS VERIFIED BY REPEAT ANALYSIS 6 consistent w/ previous results 7 Because ethnic data is not always readily available, this report includes an eGFR for both -Americans and non- Americans. The National Kidney Disease Education Program (NKDEP) does not endorse the use of the MDRD equation for patients that are not between the ages of 18 and 70, are , have extremes of body size, muscle mass, or nutritional status, or are non- or non-. According to the National Kid[employer] Foundation, irrespective of diagnosis, the stage of the disease is based on the level of kidney function: Stage Description GFR(mL/min/1.73 m(2)) 1 Kidney damage with normal or decreased GFR 90 2 Kidney damage with mild decrease in GFR 60-89 3 Moderate decrease in GFR 30-59 4 Severe decrease in GFR 15-29 5 Kidney failure <15 (or dialysis) 8 Because ethnic data is not always readily available, this report includes an eGFR for both -Americans and non- Americans. The National Kidney Disease Education Program (NKDEP) does not endorse the use of the MDRD equation for patients that are not between the ages of 18 and 70, are , have extremes of body size, muscle mass, or nutritional status, or are non- or non-. According to the National Kidney Foundation, irrespective of diagnosis, the stage of the disease is based on the level of kidney function: Stage Description GFR(mL/min/1.73 m(2)) 1 Kidney damage with normal or decreased GFR 90 2 Kidney damage with mild decrease in GFR 60-89 3 Moderate decrease in GFR 30-59 4 Severe decrease in GFR 15-29 5 Kidney failure <15 (or dialysis) 9 Comment: n 10 >100 to <200 pg/mL: likely compensated congestive heart failure (CHF) 200 to 400 pg/mL: likely moderate CHF >400 pg/mL: likely moderate to severe CHF 11 [facility] Severe Sepsis and Septic Shock Management Bundle Measure requires all lactic acids initially measuring >2.0 mmol/L be repeated. 12 Reference Range and Interpretation: TnI (ng/mL) Interpretation Less Than 0.03 ng/mL Not supportive of diagnosis of CO 0.03 - 0.50 ng/mL Indeterminate: suggest serial studies if clinically indicated. Greater than 0.5 ng/mL Consistent with diagnosis of CO 13 Card was 16 14 SEE RESULT BELOW Name: KALLIE PATEL : 1955 Attend Dr: Ashley Akbar MD Acct: [id number] Unit: [id number] AGE: 60 Location: ED Re12/16/15 SEX: F Status: REG ER SPEC: [id number] ZAYNAB: 12/16/15-[address] [facility] [address]: Darius Vieyra MD REQ: [id number] RECD: 12/16/15 STATUS: COMP OTHR DR: [facility] Philip Chirinos MD _ SOURCE: STOOL SPDESC: ORDERED: Hemoccult COMMENTS: Card was 10-25 Procedure Result Reported Site Stool Occult Blood Final 12/16/15- 6 ML Stool Occult Blood Negative * ML - MAIN LAB ([facility]) . END OF REPORT * ML=Testing performed at Main Lab DEPARTMENT OF PATHOLOGY, [address] [place] [address] Jaspreet Valverde M.D. Director [facility] # [id number] 15 SEE RESULT BELOW Name: KALLIE PATEL : [address]: Ashley Akbar MD Acct: [id number] Unit: [id number] AGE: 60 Location: ED Re12/16/15 SEX: F Status: DEP ER SPEC: [id number] ZAYNAB: 12/16/[address] [facility] [address]: Ashley Akbar MD REQ: [id number] RECD: 12/16/15 STATUS: [facility] DR: Philip Chirinos MD _ SOURCE: STOOL SPDESC: ORDERED: Surendra roldan PCR, Fecal Lactoferr Procedure Result Reported Site Stool Specimen Description Final 12/16/15- 1801 ML Stool Color Greenish Brown Stool Form Semi-formed Stool Consistency Pasty C. difficile PCR Final 12/16/15- 2046 ML Organism 1 027 Presumptive NEGATIVE Organism 2 Toxigenic C.diff NEGATIVE Fecal Lactoferrin (Stool WBC) Final 12/17/15- 1115 ML Fecal Lactoferrin Negative by Immunoassay TEST LIMITATIONS: Assay detects elevated levels of lactoferrin released from fecal leukocytes as a marker of intestinal inflammation. The test may not be appropriate in immunocompromised persons. Fecal samples from breast fed infants should not be used with this assay. * ML - [facility] ([facility]) . END OF REPORT * ML=Testing performed at Main Lab DEPARTMENT OF PATHOLOGY, [address] [place] [address] Jaspreet Valverde M.D. Director [facility] # [id number] 16 SEE RESULT BELOW Name: KALLIE PATEL : [address]: Ashley Akbar MD Acct: [id number] Unit: [id number] AGE: 60 Location: ED Re12/16/15 SEX: F Status: DEP ER SPEC: [id number] ZAYNAB: 12/16/[address] [facility] [address]: Ashley Akbar MD REQ: [id number] RECD: 12/16/15 STATUS: [facility] DR: Philip Chirinos MD _ SOURCE: STOOL SPDESC: ORDERED: Stool Culture Procedure Result Reported Site Stool Culture Final 12/18/15- 1443 ML Result No enteric pathogens isolated Testing for Salmonella, Shigella, Aeromonas, Plesiomonas, Yersinia and Campylobacter are included in a Stool Culture. Vibrio spp not routinely tested for in a stool culture. If testing is desired, please request specifically when placing test order. Sensitivities not routinely performed on stool isolates, as antibiotics may prolong the carriage rate of bacteria. Please contact the microbiology lab if sensitivities are required. Shiga Toxin 1 2 Final 12/17/15- 1038 ML Organism 1 Negative Shiga Toxin 1 2 Immunochromatographic Assay * ML - MAIN LAB ([facility]) . END OF REPORT * ML=Testing performed at Main Lab DEPARTMENT OF PATHOLOGY, [address] [place] [address] Jaspreet Valverde M.D. Director [facility] # [id number] 17 A negative result does not exclude norovirus infection. Test Performed by: [facility] [address] [place] [address] 18 consistent w/ previous results 19 consistent w/ previous results 20 RESULTS VERIFIED BY REPEAT ANALYSIS 21 Levels at the lower end of the range may be needed for symptomatic heart failure and levels at the higher end of the range for rate control. 22 Because ethnic data is not always readily available, this report includes an eGFR for both -Americans and non- Americans. The National Kidney Disease Education Program (NKDEP) does not endorse the use of the MDRD equation for patients that are not between the ages of 18 and 70, are , have extremes of body size, muscle mass, or nutritional status, or are non- or non-. According to the National Kidney Foundation, irrespective of diagnosis, the stage of the disease is based on the level of kidney function: Stage Description GFR(mL/min/1.73 m(2)) 1 Kidney damage with normal or decreased GFR 90 2 Kidney damage with mild decrease in GFR 60-89 3 Moderate decrease in GFR 30-59 4 Severe decrease in GFR 15-29 5 Kidney failure <15 (or dialysis) 23 Because ethnic data is not always readily available, this report includes an eGFR for both -Americans and non- Americans. The National Kidney Disease Education Program (NKDEP) does not endorse the use of the MDRD equation for patients that are not between the ages of 18 and 70, are , have extremes of body size, muscle mass, or nutritional status, or are non- or non-. According to the National Kidney Foundation, irrespective of diagnosis, the stage of the disease is based on the level of kidney function: Stage Description GFR(mL/min/1.73 m(2)) 1 Kidney damage with normal or decreased GFR 90 2 Kidney damage with mild decrease in GFR 60-89 3 Moderate decrease in GFR 30-59 4 Severe decrease in GFR 15-29 5 Kidney failure <15 (or dialysis) 24 RUN DATE: 03/24/12 [facility] NMI LIVE PAGE 1 RUN TIME: 1211 Specimen Inquiry RUN USER: INTERFACE Name: KALLIE PATEL Status: DIS IN Re01/18/12 Age/Sex: 56/F Unit#: [id number] Location: [facility] : 57 SPEC #: [id number] ZAYNAB: 01/21/12 STATUS: AMMON RELilliam #: [id number] RECD: 01/21/[address] [facility] [address]: Ferrer MD,Lucy Davis SOURCE: BODY FLUID ENTR: 01/21/[address] [facility] [address]: Lang TORRE, Whitney Wooten SPDESC: PLEURAL FL Sera TORRE,Daisha ORDERED: ACID FAST CULT Procedure Result Verified Site > ACID FAST CULTURE Final 03/24/12- 1211 ML Culture, Mycobacterium No growth after 60 days of incubation. Test performed by: [employer] [address] [place] [id number] - [facility] State Permit #[id number] [address] [place] [address] DEPARTMENT OF PATHOLOGY, [address] [place] [address] [facility] Permit #[id number] Jaspreet Valverde M.D. Director Ankita Dias M.D. Wire Tester 25 Neutrophilia % Lymphopenia % 26 Anion gap measurement may be of limited value in the presence of any alkalosis, especially in a combined acid base disorder. . 27 A metabolite of Naproxen, O-desmethylnaproxen, has been shown to interfere with the Jendrassik-Macario method for measuring total bilirubin. Samples from patients who have taken Naproxen have shown spurious elevation in total bilirubin levels. 28 Because ethnic data is not always readily available, this report includes an eGFR for both -Americans and non- Americans. The National Kidney Disease Education Program (NKDEP) does not endorse the use of the MDRD equation for patients that are not between the ages of 18 and 70, are , have extremes of body size, muscle mass, or nutritional status, or are non- or non-. According to the National Kidney Foundation, irrespective of diagnosis, the stage of the disease is based on the level of kidney function: Stage Description GFR(mL/min/1.73 m(2)) 1 Kidney damage with normal or decreased GFR 90 2 Kidney damage with mild decrease in GFR 60-89 3 Moderate decrease in GFR 30-59 4 Severe decrease in GFR 15-29 5 Kidney failure <15 (or dialysis) 29 Recommended INR for Patients on Oral Anticoagulants Prophylaxis 2.0 - 3.0 Treatment of thrombosis 2.0 - 3.0 Prevention of embolism 2.0 - 3.0 Prevention of embolism from prosthetic heart valves 2.5 - 3.5 30 DIAGNOSIS,TREATMENT,AND THERAPY MUST BE BASED ON THE INR VALUE ALONE. 31 INTERPRETATION %CK-MB < 5% NOT SUPPORTIVE OF DIAGNOSIS OF CO 5 - <10% INDETERMINATE; SUGGEST SERIAL STUDIES IF CLINICALLY INDICATED 10% OR > CONSISTENT WITH DIAGNOSIS OF CO . 32 New Reference Range and Interpretation effective 04/14/2002 TnI (ng/ml) INTERPRETATION Less Than 0.06 ng/mL NOT SUPPORTIVE OF DIAGNOSIS OF CO 0.06 - 0.50 ng/ml INDETERMINATE: SUGGEST SERIAL STUDIES IF CLINICALLY INDICATED. Greater than 0.5 ng/mL CONSISTENT WITH DIAGNOSIS OF CO . 33 RESULT ABRAHAM'D 34 CONSISTENT W/PREV. RESULTS 35 RESULT ABRAHAM'D 36 Recommended INR for Patients on Oral Anticoagulants Prophylaxis 2.0 - 3.0 Treatment of thrombosis 2.0 - 3.0 Prevention of embolism 2.0 - 3.0 Prevention of embolism from prosthetic heart valves 2.5 - 3.5 37 DIAGNOSIS,TREATMENT,AND THERAPY MUST BE BASED ON THE INR VALUE ALONE. 38 NO MRSA ISOLATED 39 NO MRSA ISOLATED 40 COMMENTS: PLEURAL FLUID 41 Suspicious for involvement by lymphoma. Please correlate with cytology specimen. REVIEWED BY ANKITA DIAS MD 42 Anion gap measurement may be of limited value in the presence of any alkalosis, especially in a combined acid base disorder. . 43 A metabolite of Naproxen, O-desmethylnaproxen, has been shown to interfere with the Jendrassik-Kamrar method for measuring total bilirubin. Samples from patients who have taken Naproxen have shown spurious elevation in total bilirubin levels. 44 Because ethnic data is not always readily available, this report includes an eGFR for both -Americans and non- Americans. The National Kidney Disease Education Program (NKDEP) does not endorse the use of the MDRD equation for patients that are not between the ages of 18 and 70, are , have extremes of body size, muscle mass, or nutritional status, or are non- or non-. According to the National Kidney Foundation, irrespective of diagnosis, the stage of the disease is based on the level of kidney function: Stage Description GFR(mL/min/1.73 m(2)) 1 Kidney damage with normal or decreased GFR 90 2 Kidney damage with mild decrease in GFR 60-89 3 Moderate decrease in GFR 30-59 4 Severe decrease in GFR 15-29 5 Kidney failure <15 (or dialysis) 45 New Reference Range and Interpretation effective 04/14/2002 TnI (ng/ml) INTERPRETATION Less Than 0.06 ng/mL NOT SUPPORTIVE OF DIAGNOSIS OF CO 0.06 - 0.50 ng/ml INDETERMINATE: SUGGEST SERIAL STUDIES IF CLINICALLY INDICATED. Greater than 0.5 ng/mL CONSISTENT WITH DIAGNOSIS OF CO . 46 Recommended INR for Patients on Oral Anticoagulants Prophylaxis 2.0 - 3.0 Treatment of thrombosis 2.0 - 3.0 Prevention of embolism 2.0 - 3.0 Prevention of embolism from prosthetic heart valves 2.5 - 3.5 47 DIAGNOSIS,TREATMENT,AND THERAPY MUST BE BASED ON THE INR VALUE ALONE. 48 result abraham'd 49 result abraham'd 50 result abraham'd 51 ---- RUN DATE: 11/12/10 [facility] NMI LIVE PAGE 1 RUN TIME: 1151 Specimen Inquiry RUN USER: INTERFACE -- Name: PATELAIMEEKALLIE M Status: DIS IN Re11/08/10 Age/Sex: 55/F Unit#: [id number] Location: ICU : 56 -- Specimen: [id number] SOUT Spec Date: 11/07/[address]: Michel becerril MD Spec Type: CYTOLOGY Received: 11/10/10-1013 Copies to: Jimmie claire MD SOURCE BODY FLUID (SITE): Pleural PATIENT INFORMATION ACTUAL COLLECTION DATE: 11/07/10 GROSS DESCRIPTION 700 of reddish colored cloudy fluid. DIAGNOSIS Pleural fluid: Reactive mesothelial cells and predominantly lymphocytes (see comment). COMMENT The thin prep and the cell block show identical findings: a mixture of reactive mesothelial cells and small lymphocytes. Scott-Chai cells and variants are not morphologically seen. A battery of immunohistochemical stains were performed with appropriate controls and show a mixture of B and T-cells. CD30 is focally positive, but not in the membranous/dot characteristic staining for Hodgkin's lymphoma. CD15 is more diffusely positive, but again not in the characteristic dot/membranous staining pattern. These findings indicate no evidence of involvement by lymphoma, either Hodgkin's or non-Hodgkin's lymphoma. However, if the pleural effusion persists or reaccumulates, a flow cytometry is recommended. A cell block was prepared in the evaluation of this specimen. Smears and cell block reveal similar findings. Initial evaluation performed by Kd CHAU(ASC) 11/10/10 Final Interpretation electronically signed by: ANKITA DIAS 11/12/10 1151 -- DEPARTMENT OF PATHOLOGY, [address] [place] [address] [facility] Permit #[id number] Jasprete Valverde M.D. Director Ankita Dias M.D. General Warehouse Associate Dir ryan -- 52 RESULT ABRAHAM'D 53 RESULT ABRAHAM'D 54 RESULT ABRAHAM'D 55 RESULT ABRAHAM'D READ WITH CAUTION SPECIMEN MARKEDLY HEMOLYZED. 56 ---- RUN DATE: 12/30/09 [facility] NMI LIVE PAGE 1 RUN TIME: 1338 Specimen Inquiry RUN USER: INTERFACE -- Name: KALLIE PATEL Status: DIS IN Re12/26/09 Age/Sex: 54/F Unit#: [id number] Location: : 56 -- Specimen: [id number] SOUT Spec Date: 12/27/[address]: Philip Hopkins MD Spec Type: CYTOLOGY Received: 12/27/09-5370 Copies to: Daisha claire MD SOURCE BODY FLUID (SITE): Pleural PATIENT INFORMATION ACTUAL COLLECTION DATE: 12/27/09 PATIENT HISTORY: hodgkins lymphoma GROSS DESCRIPTION 30 mls of bloody,cloudy pleural fluid Specimen sent for Flow Cytometry on 12/27/09 to [facility] in [place], [place]. DIAGNOSIS Mesothelial cells, mature lymphocytes, macrophages, and blood. No evidence of non- Hodgkin or Hodgkin lymphoma. COMMENT Flow has been performed at [facility] in [place], [place]. The testing reveals: Patient Name: KALLIE PATEL Collection Date: 12/27/2009 Ordering Physician: Jaspreet Valverde M.D. Received Date: 12/28/2009 Treating Physician: Yunier Manzano Report Date: 12/30/2009 Ordering Facility: [facility] Ref #: [id number] Medical Record #: Not Given Specimen ID #: [id number] Date of ,Sex: 1955, N Flow Cytometry Immunophenotypic Report INTERPRETATION: PLEURAL FLUID, RIGHT LUNG: NO LYMPHOID MONOCLONALITY OR ABERRANT IMMUNOPHENOTYPIC EXPRESSION DETECTED. -- DEPARTMENT OF PATHOLOGY, [address] [place] [address] [facility] Permit #[id number] Bucky Aguilar M.D. Assistant Dir ector -- -- RUN DATE: 12/30/09 [facility] NMI LIVE PAGE 2 RUN TIME: 1338 Specimen Inquiry RUN USER: INTERFACE -- Name: KALLIE PATEL Status: DIS IN Re12/26/09 Age/Sex: 54/F Unit#: [id number] Location: 4S : 56 -- -- CONTINUED -- COMMENT (Continued) Comments: Clinical and morphologic correlation is recommended. Submitted Dx: Evaluation for non-Hodgkin lymphoma Viability: 98% Flow Differential Population Analysis Lymphocytes: 97% B-cells: 18%, polyclonal/polytypic sIg light chain pattern T-cells: no aberrant expression of the markers tested CD4:CD8=6.5 NK-cells: 3% (not increased) EH03-achewiwp 3% events/ debris: No significant reactivity with the markers tested (contains rare non-hematolymphoid cells) Antibodies Performed: CD2, CD3, CD4, CD5, CD7, CD8, CD19, Sully, Lambda, CD20, CD23, FMC-7, CD11b, CD10, CD45, HLA-DR, CD38, CD56, CD30 (Original [facility] report available upon request by calling Pathology at [phone]). Initial evaluation performed by Rosetta STEWART([facility]) 12/30/09 Final Interpretation electronically signed by: ANKITA DIAS 12/30/09 1338 -- -- DEPARTMENT OF PATHOLOGY, [address] [place] [address] [facility] Permit #[id number] Jaspreet Valverde M.D. Director Ankita Dias M.D. General Warehouse Associate Dir ryan -- 57 NO ORGANISMS SEEN BY CYTOSPIN SMEAR FEW 58 FINAL: NO GROWTH DAY 4 59 REVIEWED BY ANKITA DIAS MD NEGATIVE FOR MALIGNANT CELLS 60 NO GROWTH AFTER 5 DAYS 61 NO GROWTH AFTER 5 DAYS 62 Anion gap measurement may be of limited value in the presence of any alkalosis, especially in a combined acid base disorder. . 63 Note change in reference range as of 03/01/08. The change was based on recommendations from the [place] [employer]. 64 Please note change in reference range effective 07 . 65 A metabolite of Naproxen, O-desmethylnaproxen, has been shown to interfere with the Jendrassik-Macario method for measuring total bilirubin. Samples from patients who have taken Naproxen have shown spurious elevation in total bilirubin levels. 66 Because ethnic data is not always readily available, this report includes an eGFR for both -Americans and non- Americans. The National Kidney Disease Education Program (NKDEP) does not endorse the use of the MDRD equation for patients that are not between the ages of 18 and 70, are , have extremes of body size, muscle mass, or nutritional status, or are non- or non-. According to the National Kidney Foundation, irrespective of diagnosis, the stage of the disease is based on the level of kidney function: Stage Description GFR(mL/min/1.73 m(2)) 1 Kidney damage with normal or decreased GFR 90 2 Kidney damage with mild decrease in GFR 60-89 3 Moderate decrease in GFR 30-59 4 Severe decrease in GFR 15-29 5 Kidney failure <15 (or dialysis) 67 New Reference Range and Interpretation effective 04/14/2002 TnI (ng/ml) INTERPRETATION Less Than 0.06 ng/mL NOT SUPPORTIVE OF DIAGNOSIS OF CO 0.06 - 0.50 ng/ml INDETERMINATE: SUGGEST SERIAL STUDIES IF CLINICALLY INDICATED. Greater than 0.5 ng/mL CONSISTENT WITH DIAGNOSIS OF CO . 68 1SST 69 (Performed by Enzyme Immunoassay, EIA) 70 [facility] DEPARTMENT OF PATHOLOGY or Extension 6789 SURGICAL PATHOLOGY REPORT PATIENT: KALLIE PATEL : 1955 AGE: 51 Y SEX: F ACCT: [id number] PROCEDURE DATE: 05/12/2007 DATE RECEIVED: 05/14/2007 REQUESTING PHYSICIAN: RAINE HUTCHINS MD LOC[place] [facility] [place]. [id number] FINAL DIAGNOSIS: SKIN, EXCISION LESION OF LEFT FOREARM: CAPILLARY HEMANGIOMA. LDM/bita D GROSS DESCRIPTION: Received in formalin, labeled with the patient's name Erika Patel and also labeled left forearm mole, consists of a 0.45 x 0.3 x 0.1 cm cosme, hair-bearing, ovoid segments of skin with an off-center 0.2 x 0.2 cm smooth, blue-clark macule. The margin is painted with black ink. It is bisected and totally submitted in one cassette. AP/slf D CLINICAL DATA: [id number] HODGKIN'S LYMPHOMA. SPECIMEN SUBMITTED: LESION, LEFT FOREARM ADDITIONAL COPIES SENT TO: Electronically Signed by: Signed Date ZULEYKA OCONNELL MD PATHOLOGIST 05/17/2007 15:08 Performed @ [facility], [address] [place] [address] 71 2SST,1LAV,2 SLIDES 72 Cholesterol Risk Levels (NIH) Recommended: under 200 mg/dl Borderline : 200-239 mg/dl High Risk : Above 240 mg/dl . 73 The National Cholesterol Education Program recommends the following ranges for LDL Cholesterol: Optimal under 100 mg/dl Near or above Optimal 100 - 129 mg/dl Borderline High 130 - 159 mg/dl High 160 - 189 mg/dl Very High above 190 mg/dl . 74 Triglyceride Risk Levels: Normal : <150 mg/dl Borderline : 150-199 mg/dl High : 200-499 mg/dl Very High : >500 mg/dl . 75 LDL/HDL Risk Ratio Levels MALE FEMALE 1/2 X Average 1.00 1.47 Average 3.55 3.22 2 X Average 6.25 5.03 3 X Average 7.99 6.14 . 76 CHOL/HDL Risk Ratio Levels MALE FEMALE 1/2 X Average 3.4 3.3 Average 5.0 4.4 2 X Average 9.5 7.0 3 X Average 24.0 11.0 . 77 mL/min/1.73m2 . Normal Function or Mild Renal Disease, if clinically at risk: >or=60 Moderately decreased: 30 - 59 Severely decreased: 15 - 29 Renal Failure: <15 . Please note that the MDRD equation requires an additional adjustment for -Americans (multiply the GFR result by 1.210). . Glomerular Filtration Rate (GFR) is estimated based on the MDRD equation, which assumes a steady state for creatinine (Susanne Int Med 139/2 137-149, 2003), as recommended by the National Kidney Disease Education Program in conjunction with the National Institutes of Health and the National Kidney Foundation. . Clinical conditions in which it may be necessary to measure GFR by using clearance methods include extremes of age and body size, severe malnutrition or obesity, diseases of skeletal muscle, paraplegia or quadriplegia, vegetarian diet, rapidly changing kidney function, and calculation of the dose of potentially toxic drugs that are excreted by the kidneys. . 78 Triglyceride Risk Levels: Normal : <150 mg/dl Borderline : 150-199 mg/dl High : 200-499 mg/dl Very High : >500 mg/dl . 79 Cholesterol Risk Levels (NIH) Recommended: under 200 mg/dl Borderline : 200-239 mg/dl High Risk : Above 240 mg/dl . 80 The National Cholesterol Education Program recommends the following ranges for LDL Cholesterol: Optimal under 100 mg/dl Near or above Optimal 100 - 129 mg/dl Borderline High 130 - 159 mg/dl High 160 - 189 mg/dl Very High above 190 mg/dl . 81 LDL/HDL Risk Ratio Levels MALE FEMALE 1/2 X Average 1.00 1.47 Average 3.55 3.22 2 X Average 6.25 5.03 3 X Average 7.99 6.14 . 82 CHOL/HDL Risk Ratio Levels MALE FEMALE 1/2 X Average 3.4 3.3 Average 5.0 4.4 2 X Average 9.5 7.0 3 X Average 24.0 11.0 . 83 HGBA1C (%) GLUCOSE CONTROL >8 Action Suggested 7-8 Good Control <7 Goal 6-7 Near Normal Glycem <6 Non-diabetic Level . 84 . Normal Function or Mild Renal Disease, if clinically at risk: >or=60 Moderately decreased: 30 - 59 Severely decreased: 15 - 29 Renal Failure: <15 . Please note that the MDRD equation requires an additional adjustment for -Americans (multiply the GFR result by 1.210). . Glomerular Filtration Rate (GFR) is estimated based on the MDRD equation, which assumes a steady state for creatinine (Susanne Int Med 139/2 137-149, 2003), as recommended by the National Kidney Disease Education Program in conjunction with the National Institutes of Health and the National Kidney Foundation. . Clinical conditions in which it may be necessary to measure GFR by using clearance methods include extremes of age and body size, severe malnutrition or obesity, diseases of skeletal muscle, paraplegia or quadriplegia, vegetarian diet, rapidly changing kidney function, and calculation of the dose of potentially toxic drugs that are excreted by the kidneys. . Procedures Date CPT Code Description Status Comment 03/04/2018 12153 Electrocardiogram Complete Completed 02/18/2018 81510 Pulse Oximetry Completed 03/03/2017 39779 Remove Impacted Cerumen Completed 10/05/2016 Mammogram Completed Refuses 09/02/2012 79793 Remove Impacted Cerumen Completed 08/22/2012 58576 Finger Or Heel Stick Completed 02/04/2012 36373 Pulse Oximetry Completed 12/31/2011 53358 Finger Or Heel Stick Completed 03/17/2011 70885 Finger Or Heel Stick Completed 02/11/2011 75911 Finger Or Heel Stick Completed 01/21/2011 96609 Finger Or Heel Stick Completed 01/05/2011 13510 Finger Or Heel Stick Completed 12/25/2010 22040 Finger Or Heel Stick Completed 12/22/2010 52291 Finger Or Heel Stick Completed 12/19/2010 48259 Finger Or Heel Stick Completed 12/11/2010 57581 Pulse Oximetry Completed 05/16/2007 76507 Biopsy Skin Lesion Single Completed 05/12/2007 86812 Biopsy Skin Lesion Single Completed Encounters Type Date Location Provider CPT E/M Dx Office Visit 03/16/2018 2:40p Main Office Philip Chirinos M.D. 18448 M25.512 I48.0 J90 R60.0 I89.0 Office Visit 03/04/2018 3:30p Main Office DANIELLE Clemente 54951 M25.512 I48.0 Office Visit 02/18/2018 2:00p [place] [address] J44.9 J30.9 R60.0 J90 I50.22 Office Visit 02/11/2018 3:15p Main Office Judit Bettencourt [facility] 37358 M25.512 R60.0 Office Visit 12/30/2017 2:15p Main Office Lara Giang, DIGGING MACHINE OPERATOR 38550 L03.314 Office Visit 12/16/2017 1:15p Main Office Lara Giang, VIVIAN 93410 L03.314 Office Visit 12/08/2017 2:00p Main Office Philip Chirinos M.D. 29120 J44.9 J40 Office Visit 09/17/2017 3:00p Main Office Thee Zhao M.D. 63127 J40 I48.0 E03.8 Office Visit 10/05/2016 2:20p Main Office Philip Chirinos M.D. 59150 I48.0 E03.9 I89.0 Office Visit 05/20/2016 2:30p Main Office Judit Bettencourt, [facility] 35616 S10.86xA W57.xxxA Office Visit 02/05/2016 3:00p Main Office Judit Bettencourt, [facility] 40523 B35.4 Office Visit 12/04/2015 3:15p Main Office Judit Bettencourt, [facility] 63033 M25.512 Office Visit 05/31/2015 3:30p Main Office Judit Bettencourt [facility] 95540 S20.462A W57.xxxA Office Visit 03/27/2015 3:45p Main Office Judit Bettencourt, [facility] 28845 786.2 Office Visit 12/10/2014 3:40p Main Office Philip Chirinos M.D. 79969 427.31 244.9 Office Visit 11/07/2013 3:15p Main Office Bhavna Fletcher [place] 08889 465.8 462 Office Visit 06/21/2013 4:10p Main Office Philip Chirinos M.D. 89115 787.91 Office Visit 05/26/2013 4:20p Main Office Philip Chirinos M.D. 39648 466.0 Office Visit 04/17/2013 3:00p Main Office Philip Chirinos M.D. 68201 682.8 427.31 Office Visit 04/05/2013 5:10p Main Office Philip Chirinos M.D. 28178 682.8 427.31 Office Visit 03/29/2013 1:40p Main Office Philip Chirinos M.D. 23247 682.8 427.31 Office Visit 03/18/2013 11:30a Main Office Bhavna IrelandVeronica-C 83798 682.8 Office Visit 03/16/2013 3:15p Main Office Bhavna Ireland Jocelynevivian-C 38016 682.8 Office Visit 02/20/2013 1:00p Main Office Philip Chirinos M.D. 38984 244.9 790.21 272.4 Office Visit 09/02/2012 3:45p Main Office Judit Bettencourt [facility] 96134 389.9 380.4 Office Visit 08/29/2012 8:00p Main Office Judit Bettencourt [facility] 87978 380.89 380.4 Office Visit 08/22/2012 1:00p Main Office Philip Chirinos M.D. 86661 427.32 244.9 V10.72 790.21 Office Visit 02/04/2012 1:00p Main Office Whitney Croft M.D. 17932 511.9 427.32 790.21 Office Visit 10/20/2011 2:40p Main Office Whitney Croft M.D. 67440 244.9 272.4 790.21 Office Visit 05/21/2011 4:40p Main Office Whitney Croft M.D. 26767 790.21 272.4 244.9 Office Visit 04/16/2011 3:00p Main Office Whitney Croft M.D. 98077 427.32 300.09 790.21 V10.72 729.2 380.4 Office Visit 12/29/2010 3:00p Main Office Raine Hutchins M.D. 57346 427.32 511.9 300.09 Office Visit 12/11/2010 4:20p Northeast Office Raine Hutchins 25989 427.32 MClay V58.83 Office Visit 12/01/2010 6:30p Main Office Raine Hutchins M.D. 97763 511.9 427.32 Office Visit 11/15/2010 11:40a Main Office Raine Hutchins M.D. 24738 511.9 427.32 Office Visit 11/07/2010 3:20p [facility] Office Raine Hutchins 55942 786.09 Bucky V10.72 Office Visit 05/28/2010 3:00p Main Office Philip Chirinos M.D. 45609 989.5 Office Visit 01/01/2010 3:20p Main Office Raine Hutchins M.D. 28017 244.9 511.9 Office Visit 11/18/2009 3:30p Main Office Raine Hutchins M.D. 82790 530.81 300.00 Office Visit 08/20/2009 3:15p Main Office Fletcher Lundberg 65501 782.1 Office Visit 07/03/2009 3:15p Main Office Fletcher Lundberg 24634 127.4 Office Visit 08/20/2008 5:30p Main Office Raine Hutchins M.D. 03663 443.0 V10.72 337.00 Office Visit 04/11/2008 3:10p Main Office Raine Hutchins M.D. 94197 V10.72 110.9 692.9 Office Visit 01/04/2008 1:40p Main Office Raine Hutchins M.D. 99198 V10.72 V16.0 300.00 Office Visit 05/25/2007 3:15p Main Office Fletcher Mohan 93158 228.01 691.8 V58.32 Office Visit 05/03/2007 2:40p Main Office Raine Hutchins M.D. 70013 701.1 Office Visit 11/11/2005 2:10p Main Office Raine Hutchins M.D. 20579 244.9 790.21 Office Visit 10/28/2005 3:20p Main Office Raine Hutchins M.D. 43666 V70.0 V72.31 791.7 Office Visit 05/22/2004 10:20a Main Office Raine Hutchins M.D. 57357 791.0 V72.31 V70.0 Office Visit 02/12/2004 1:40p Main Office Raine Hutchins M.D. 66079 729.2 V10.72 Plan of Care 03/30/2018 - Senia Guerrero, NPI48.0 Paroxysmal atrial fibrillationComments: followed by JULIAN Rose90 Pleural effusion, not elsewhere classifiedComments: appears to be aemtonwekT12.0 Localized edemaComments:TAKE YOUR LASIX!!!!!!!! this is a must for your swelling to go down Supportive Care:- Elevate legs- Increase protein in diet and try to drink at least 1-2 more glasses of water per day - Take frequent breaks while on your feet - Compression stockings ED Precautions [id number] Lymphedema, not elsewhere classifiedComments: follow up with [facility] - it will benefit you in the long runJ44.9 Chronic obstructive pulmonary disease, unspecifiedComments:use inhaler PRN patient instructed to call back if condition fails to improve or worsens.AllComments:~B_ ~U_Medication Management~b_~u_ Patient Understands medications he 's taking? Yes No Are there Barriers to Adherence? Yes No Has the patient been asked about herbal supplements and therapies, and OTC meds? Yes No ~B_~U_Care Plan~b_~u_1. Patient has been queried about patient's goals/ preferences and functional/lifestyle goals at relevant visits. If relevant, describe: na2. Treatment goals as explained to the patient: above3. Are there barriers to meeting treatment goals? Yes No If Yes, please describe:4. Self-Management goals as described to the patient:Yes NoAs always, we strongly encourage a healthy diet and making physical activity a part of your every day life. If you have questions about how or where to start, please contact the office.
[2018-04-01] MEDS ORDERED: Furosemide IV* 10 MG/ML VIAL (40 MG) IV ONE (20:16)
[2018-04-01 20:30] LABS: ABS Basophils 0.1 10^3/ul (0-0.2); ABS Eosinophils 0 10^3/ul (0-0.6); ABS Lymphocytes 0.4 10^3/ul (1.0-4.8); ABS Monocytes 0.7 10^3/ul (0-0.8); ABS Neutrophils 6.2 10^3/ul (1.5-7.7); ABS Nucleated RBC 0 10^3/ul; Eosinophil % 0.2 % (0-6); Hematocrit 40 % (35-47); Hemoglobin 13.1 g/dl (12.0-16.0); Lymphocyte % 5.1 % (25-47); Mean Corpuscular HGB Conc 33 g/dl (31-36); Mean Corpuscular Hemoglobin 29 pg (27-31); Mean Corpuscular Volume 89 fL (80-97); Nucleated Red Blood Cells % 0.1; Platelet Count 389 10^3/ul (150-450); Red Blood Count 4.51 10^6/ul (4.00-5.40); Red Cell Distribution Width 17 % (10.5-15); White Blood Count 7.3 10^3/ul (3.5-10.8)
--- NOTE | 2018-04-01 21:01 | ED ---
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 She was also complaining of marked worsening of peripheral edema in the legs as well as the hands. She has been developing some dyspnea on exertion over the last week or so as well. There has been no cough or fever, or other respiratory complaints. She is appetite has been steady. There has been no chest pain. The shortness of breath and edema are gradually worsening and they're fairly severe at this point, particularly on exertion. - History of Current Complaint Chief Complaint: EDShortnessOfBreath Time Seen by Provider: 04/01/18 19:43 - Allergy/Home Medications Allergies/Adverse Reactions: Allergies Allergy/AdvReac Type Severity Reaction Status Date / Time clindamycin Allergy Tachycardia Verified 04/01/18 17:46 dronedarone Allergy Anaphylatic Verified 04/01/18 17:46 Shock levofloxacin Allergy Itching Verified 04/01/18 17:46 penicillin G Allergy Anaphylatic Verified 04/01/18 17:46 Shock Penicillins Allergy Anaphylatic Verified 04/01/18 17:46 Shock Home Medications: Home Medications Albuterol HFA INHALER* [Ventolin HFA Inhaler*] 2 puff INH Q6H PRN 04/01/18 [ History Confirmed 04/01/18] Ascorbic Acid TAB* [Vitamin C TAB*] 1,000 mg PO DAILY 04/01/18 [History Confirmed 04/01/18] Calcium/Magnesium/Vitamin D3 [Manoj-Mag Complex 300-150 mg Tab] 2 tab PO BID 04/01 [History Confirmed 04/01/18] Cholecalciferol TAB* [Vitamin D TAB*] 400 unit PO DAILY 04/01/18 [History Confirmed 04/01/18] Furosemide TAB* [Lasix TAB*] 20 mg PO DAILY 04/01/18 [History Confirmed 04/01/18 ] Lactobacillus Acidophilus [Freeze Dried Acidophilus] 1 cap PO BID 04/01/18 [ History Confirmed 04/01/18] Resveratrol 100 mg PO QPM 04/01/18 [History Confirmed 04/01/18] Rivaroxaban TAB(*) [Xarelto 20 mg] 20 mg PO DAILY 04/01/18 [History Confirmed ] Ubidecarenone [Coq10] 100 mg PO DAILY 04/01/18 [History Confirmed 04/01/18] Vitamin B Complex CAP* [B Complex CAP*] 1 cap PO DAILY 04/01/18 [History Confirmed 04/01/18] raNITIdine HCl [Ranitidine HCl] 150 mg PO DAILY 04/01/18 [History Confirmed ] PMH/Surg Hx/FS Hx/Imm Hx Endocrine/Hematology History: Reports: Hx Thyroid Disease Cardiovascular History: Reports: Other Cardiovascular Problems/Disorders - A- flutter history; takes Xarelto, Tikosyn, metoprolol Denies: Hx Congestive Heart Failure, Hx Coronary Artery Disease Respiratory History: Reports: Hx Chronic Obstructive Pulmonary Disease (COPD), Hx Pleural Effusion Denies: Hx Asthma GI History: Reports: Hx Gastroesophageal Reflux Disease Sensory History: Reports: Hx Contacts or Glasses Denies: Hx Hearing Aid Opthamlomology History: Reports: Hx Contacts or Glasses Neurological History: Reports: Other Neuro Impairments/Disorders - 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 treated with chemo and radiation. Hx Chemotherapy: Yes Hx Radiation Therapy: Yes - Surgical History Surgery Procedure, Year, and Place: THORACOTOMY Infectious Disease History: No Infectious Disease History: Denies: Traveled Outside the [place] in Last 30 Days - Family History Known Family History: Positive: Other - Aunt/father with throat cancer - Social History Alcohol Use: None Substance Use Type: Reports: None Hx Tobacco Use: Yes Smoking Status (MU): Former Smoker Type: Cigarettes Amount Used/How Often: 10 years 1 ppd; plus 10 years 5 cigarettes/day Have You Smoked in the Last Year: No Review of Systems Constitutional: Negative Negative: Fever, Chills Eyes: Negative Negative: Photophobia ENT: Negative Negative: Palpitations, Chest Pain Positive: Shortness Of Breath. Negative: Cough Negative: Abdominal Pain, Vomiting, Diarrhea All Other Systems Reviewed And Are Negative: Yes Physical Exam - Summary Physical Exam Summary: General: This is a well-developed, well- nourished white female lying on the stretcher in no apparent distress. The patient does not appear ill or toxic. HEENT:Extraocular movements are intact. Conjunctiva are normal without pallor. Pharynx is clear without exudate or swelling. Dentition is unremarkable. There is no sign of head trauma. Neck: Supple, no adenopathy noted. Lungs: Lung exam shows signs of pleural effusion at both bases and bibasilar crackles.. There are no signs of respiratory distress observed at rest. Coronary: Peripheral perfusion is good. Heart sounds are regular, a normal S1 and S2 were auscultated. There is no gallop rhythm, but there is a grade 2/6 blowing crescendo decrescendo murmur at the apex. Abdomen: The abdomen appears normal and is nondistended. Normoactive bowel sounds are present. On palpation, there is no significant tenderness, nor any guarding or rebound. There is no hepatosplenomegaly, nor any masses. Genitourinary: Deferred Back: Good range of motion is observed. There are no surface abnormalities nor any scoliosis. Extremities: Good range of motion was observed in all 4 extremities. There is no sign of any trauma to the extremities. There is moderate pitting edema of both lower extremities up to the mid thigh. There is chronic lymphedema on the left upper extremity and there is bilateral edema of both hands, which the patient states is new Neurologic: The patient is awake and alert, speech is fluent in conversation is appropriate. There are no focal motor abnormalities. Cranial nerves are grossly intact. Deep tendon reflexes are 2+ and symmetric. There is no ataxia observed. Psychiatric. The patients affect is felt to be normal and appropriate. There is no sign of any hallucinations or delusions, or any other signs of psychosis. Vital Signs On Initial Exam: Initial Vitals Temp Pulse Resp BP Pulse Ox 36.2 C 77 16 99/80 95 04/01/18 17:46 04/01/18 17:46 04/01/18 17:46 04/01/18 17:46 04/01/18 17:46 Diagnostics - Vital Signs Vital Signs Temp Pulse Resp BP Pulse Ox 04/01/18 19:00 19 04/01/18 18:43 78 28 95 04/01/18 17:46 36.2 C 77 16 99/80 95 - Laboratory Lab Results: Lab Results 04/01/18 04/01/18 04/01/18 Range/Units 19:10 19:10 19:10 WBC 7.3 (3.5-10.8) 10^3/ul RBC 4.51 (4.00-5.40) 10^6/ul Hgb 13.1 (12.0-16.0) g/dl Hct 40 (35-47) % MCV 89 (80-97) fL MCH 29 (27-31) pg MCHC 33 (31-36) g/dl RDW 17 H (10.5-15) % Plt Count 389 (150-450) 10^3/ul MPV 8.0 (7.4-10.4) um3 Neut % (Auto) 84.8 H (38-83) % Lymph % (Auto) 5.1 L (25-47) % Burnett % (Auto) 9.0 H (0-7) % Eos % (Auto) 0.2 (0-6) % Baso % (Auto) 0.9 (0-2) % Absolute Neuts (auto) 6.2 (1.5-7.7) 10^3/ul Absolute Lymphs (auto) 0.4 L (1.0-4.8) 10^3/ul Absolute Monos (auto) 0.7 (0-0.8) 10^3/ul Absolute Eos (auto) 0 (0-0.6) 10^3/ul Absolute Basos (auto) 0.1 (0-0.2) 10^3/ul Absolute Nucleated RBC 0 10^3/ul Nucleated RBC % 0.1 Lactic Acid 1.5 (0.5-2.0) mmol/L B-Natriuretic Peptide 398 H ( - 100) pg/mL Result Diagrams: 04/01/18 19:10 04/01/18 19:10 Lab Statement: Any lab studies that have been ordered have been reviewed, and results considered in the medical decision making process. - Radiology No standard instances Xray Interpretation: Positive (See Comments) - Compared to a prior film from November of this year, there is worsening pleural effusions bilaterally. There is worsening in the previously noted fluid densities in the major and minor fissures on the right. There are no overt signs of consolidation. - EKG No standard instances Cardiac Rate: NL EKG Rhythm: Sinus Rhythm ST Segment: Normal Ectopy: None Course/Dx - Course Course Of Treatment: This is a 62-year-old woman with signs and symptoms of progressively worsening congestive heart failure associated with shortness of breath and peripheral edema. I ordered a dose of Lasix and she will need to be admitted for stabilization. Her CBC is unremarkable, I wait chemistry panel and then we'll contact the hospitalist. - Diagnoses Differential Diagnosis/HQI/PQRI: Positive: CHF, COPD Exacerbation, Pulmonary Embolism, Pulmonary Edema Provider Diagnoses: Congestive heart failure - Physician Notifications Discussed Care of Patient With: Isi Mattson Time Discussed With Above Provider: 22:55 Instructed by Provider To: Admit As Inpatient - We discussed patient care with Dr. Mattson (Hospitalist), who agrees to accept patient. Discharge - Sign-Out/Discharge Documenting (check all that apply): Patient Departure - Discharge Plan Condition: Fair Disposition: ADMITTED TO [facility] - Billing Disposition and Condition Condition: FAIR Disposition: Admitted to [facility] - Attestation Statements Document Initiated by Scribe: No
[2018-04-01 21:27] LABS: EGFR Non-African American 77.4 (>60)
[2018-04-01] MEDS ORDERED: Acetaminophen TAB* 325 MG PO PRN (23:55)
[2018-04-01] MEDS ORDERED: Albuterol HFA INHALER* 8 gm MDI INH PRN (23:55)
--- NOTE | 2018-04-02 03:10 | HP ---
CC: Dr. Chirinos; Dr. Rose. * HISTORY AND PHYSICAL: DATE OF ADMISSION: 04/01/18 PRIMARY CARE PROVIDER: Dr. Chirinos. SUPPLIER DIVERSITY DIRECTOR: Dr. Rose. CHIEF COMPLAINT: Shortness of breath and edema. HISTORY OF PRESENT ILLNESS: Ms. Traylor is a 62-year-old female who has a history of paroxysmal atrial flutter, single vessel coronary artery disease, COPD, pulmonary hypertension, hypothyroidism and history of Hodgkin lymphoma who presents to the emergency room with complaints of progressive lower extremity edema and shortness of breath. The patient was seen in the cardiology office earlier on the day of admission and was referred to the emergency room for evaluation of this. The patient in November had been started on atenolol to replace Lopressor. At that point, the patient noted the onset of lower extremity edema that progressively worsened. The patient has also now noted upper extremity edema. She has had increasing shortness of breath. The patient was started on Lasix 20 mg daily at the end of January without any significant improvement. She was just switched back to metoprolol and states that with that switch, she did "see her knees" though this improvement in her edema has disappeared. According to the cardiology office notes, the patient is up 13 pounds since her last appointment in 01/16/18. PAST MEDICAL HISTORY: 1. Paroxysmal atrial flutter. 2. Single vessel coronary artery disease. 3. COPD. 4. Pulmonary hypertension. 5. History of Hodgkin lymphoma in 1987 with recurrence in 1990. 6. Hypothyroidism. 7. Left upper extremity lymphedema, right upper extremity neuropathy with tightening of the skin on the right hand. PAST SURGICAL HISTORY: 1. Staging laparotomy for Hodgkin disease with splenectomy and appendectomy. 2. Right VATS procedure. MEDICATIONS: ALLERGIES: PENICILLIN, DRONEDARONE, LEVAQUIN, SOTALOL, CLINDAMYCIN. FAMILY HISTORY: Mom at the age 80 of "failure to thrive." Dad at the age of 56 of throat cancer. SOCIAL HISTORY: The patient quit smoking approximately 10 years ago. She smoked approximately 1 pack per day for 10 years and about 5 cigarettes a day for another 5 years or so. She denies routine alcohol use. She does utilize medical marijuana. She states that she utilizes it to help her cells relax. 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 She indicates that her brother, Foreign, would be her healthcare proxy. REVIEW OF SYSTEMS: A complete 11-system review of systems is obtained. Pertinent positives and negatives are as per HPI, and in addition, the patient does state that over the last several days, she has been having diarrhea that generally is improving. PHYSICAL EXAMINATION GENERAL: The patient is a well-developed, middle-aged female seen sitting in a chair in no acute distress. VITAL SIGNS: Blood pressure 99/80, pulse 80, respirations 30, temp 97.1, O2 sat 99% on room air. HEENT: Pupils are equal and round. Extraocular muscles are intact. Oropharynx is clear. Oral mucosa is moist. There is no submandibular, cervical , or supraclavicular adenopathy. PULMONARY: There are crackles heard at the bases bilaterally, greater on the right than the left. CARDIAC: Normal S1, S2. Regular rate and rhythm. There is marked 4+ pitting edema to the bilateral lower extremities up to the hips and of the left upper extremity. ABDOMEN: Bowel sounds are present. Abdomen is soft, nontender, nondistended. MUSCULOSKELETAL: There is very tense skin noted over the right hand with dark erythematous changes to the fingertips on the right hand. Patient states this is chronic. There is otherwise no cyanosis of the digits. There is full active range of motion of all 4 extremities. SKIN: Warm and dry. There are no rashes. NEUROLOGIC: Cranial nerves II through XII appear to be grossly intact. Sensation is intact to light touch throughout. Strength appears to be normal. PSYCH: The patient is alert. She is oriented x3. Affect appears appropriate. LABORATORY DATA: WBC 7.3, hemoglobin 13.1, hematocrit 40, platelets 389. Sodium 137, potassium 4.3, chloride 94, CO2 is 32, BUN 18, creatinine 0.76, glucose 119, lactic acid 1.5. Calcium 8.7, bilirubin 0.8, AST 28, ALT 22, alkaline phosphatase 55, troponin 0.01, BNP 398, albumin 3.1. EKG reveals sinus rhythm with a left bundle branch block. Chest x-ray to my interpretation reveals a right greater than left pleural effusion and perhaps mild pulmonary vascular congestion. ASSESSMENT AND PLAN: Ms. Traylor is a 62-year-old female with history of paroxysmal atrial flutter, single vessel coronary artery disease, chronic obstructive pulmonary disease, pulmonary hypertension, hypothyroidism and past history of Hodgkin lymphoma with radiation to the chest who presents to the emergency room with complaints of increasing lower extremity edema and shortness of breath. 1. Decompensated congestive heart failure. This appears to be perhaps right sided congestive heart failure. The patient has a history of pulmonary hypertension that is likely related to her smoking history and past radiation therapy to the chest. The patient had been on Lasix 20 mg p.o. daily and has had increasing edema of the extremities. The patient will be admitted and started on Lasix 40 mg IV daily. If the patient diuresis well, but the urine output tapers off by the afternoon, perhaps a second dose in the evening should be considered. The patient will need close monitoring of her electrolytes and renal function. Transthoracic echocardiogram will be ordered for Wednesday. If the patient does not respond as anticipated, cardiology consultation should be requested. 2. Paroxysmal atrial flutter. The patient will continue on metoprolol tartrate 50 mg twice daily and Xarelto 20 mg daily. Additionally, she is on Tikosyn and this will continue at an unchanged dose. 3. Hypothyroidism. The patient for now will continue on her usual dose of Synthroid. TSH has been ordered and the results of this will need to be followed up. 4. Coronary artery disease. The patient has no complaints of chest pain at this point. We will monitor for symptoms. 5. Chronic obstructive pulmonary disease. There are no signs of exacerbation. The patient's breath sounds are not diminished nor does she have any wheezing. She will continue p.r.n. albuterol. 6. Deep vein thrombosis prophylaxis. According to the Adult Thrombosis Prophylaxis Risk Factor Assessment Guide, the patient has a total risk factor score of 5, making her the highest risk. She is already on Xarelto as her deep vein thrombosis prophylaxis. 8. Code status is full. TIME SPENT: Sixty-five minutes was spent admitting this patient. [id number]/CPS #: [id number] MTDD
[2018-04-02] MEDS: Levothyroxine TAB* 75 MCG TAB PO SCH (06:14)
[2018-04-02 07:04] LABS: EGFR Non-African American 79.8 (>60)
[2018-04-02] MEDS: Metoprolol Tartrate TAB* 50 mg PO SCH ×2 (07:47→21:18)
[2018-04-02] MEDS: Famotidine TAB* 20 MG PO SCH (07:47)
[2018-04-02] MEDS: Dofetilide CAP* 250 MCG PO SCH ×2 (07:47→21:17)
[2018-04-02] MEDS: Rivaroxaban TAB(*) 20 MG TAB PO SCH (07:47)
[2018-04-02] MEDS: Coenzyme Q10 (NF) ** ENTER STREGNTH IN LABEL DIRECTIONS PO SCH (07:49)
[2018-04-02] MEDS ORDERED: Potassium Chlor TAB* 20 MEQ TAB.ER PO ONE (08:00)
[2018-04-02] MEDS ORDERED: Furosemide IV* 10 MG/ML VIAL (40 MG) IV SCH (09:00)
--- NOTE | 2018-04-02 14:23 | RAD ---
INDICATION: Shortness of breath and lower extremity edema. Relevant medical history includes a thoracotomy. COMPARISON: Most recent comparison chest x-ray is dated November 25, 2017 TECHNIQUE: PA and lateral views of the chest were obtained. FINDINGS: There is a mild degree of cardiomegaly similar in appearance to the prior chest x-ray. Density overlying the lateral right upper lung abutting the lateral pleural space measures 4.8 x 5.5 cm, increased from 2.6 x 5.4 cm. More inferiorly there is a fainter density measuring 5.8 cm in greatest dimension unchanged in the prior chest x-ray. There is a density obscuring the right lung base and obscuring the right hemidiaphragm. To a lesser extent there is blunting of the left costophrenic angle. Elsewhere the lungs are adequately aerated. Visualized bones are normal for the patient's age. There is no radiographic evidence of free air beneath the diaphragm IMPRESSION: 1. RELATIVE TO THE MOST RECENT CHEST X-RAY ACQUIRED NOVEMBER 25, 2017, THERE HAS BEEN INCREASE IN DENSITY OVERLYING THE LATERAL RIGHT UPPER LUNG EITHER REPRESENTING A PLEURAL MASS OR INCREASE IN PLEURAL FLUID. 2. THE DENSITIES OVERLYING THE MID-LEVEL RIGHT LUNG AND OBSCURING THE RIGHT HEMIDIAPHRAGM IS UNCHANGED FROM THE PRIOR CHEST X-RAY. 3. INTERVAL DEVELOPMENT OF DENSITY AT THE LEFT LUNG BASE WITH LEFT COSTOPHRENIC ANGLE BLUNTING COULD BE DUE TO DEVELOP OF A SMALL LEFT-SIDED PLEURAL EFFUSION. R1
--- NOTE | 2018-04-02 15:06 | PN ---
Subjective Date of Service: 04/02/18 Interval History: Pt's SOB improved, but leg edema is extensive and unchanged. She has gained approx 20 lbs in 2 months. Objective Active Medications: Acetaminophen (Tylenol Tab*) 650 mg PO Q6H PRN PRN Reason: FEVER/PAIN Albuterol (Ventolin Hfa Inhaler*) 2 puff INH Q6H PRN PRN Reason: SOB/WHEEZING Clonazepam (Klonopin Tab(*)) 1 mg PO BEDTIME [facility] Coenzyme Q10 (Coenzyme Q10 (Nf)) 1 cap PO DAILY [facility] Last Admin: 04/02/18 07:49 Dose: Not Given Dofetilide (Tikosyn Cap*) 250 mcg PO BID [facility] Last Admin: 04/02/18 07:47 Dose: 250 mcg Famotidine (Pepcid Tab*) 20 mg PO DAILY [facility] Last Admin: 04/02/18 07:47 Dose: 20 mg Furosemide (Lasix Iv*) 20 mg IV DAILY [facility] Levothyroxine Sodium (Synthroid Tab*) 75 mcg PO 0600 [facility] Last Admin: 04/02/18 06:14 Dose: 75 mcg Metoprolol Tartrate (Lopressor Tab*) 50 mg PO BID [facility] Last Admin: 04/02/18 07:47 Dose: 50 mg Rivaroxaban (Xarelto(*)) 20 mg PO DAILY [facility] Last Admin: 04/02/18 07:47 Dose: 20 mg Vital Signs - 8 hr 04/02/18 04/02/18 07:28 11:57 Temperature 97.6 F 97.7 F Pulse Rate 74 66 Respiratory 23 22 Rate Blood Pressure 94/61 86/51 (mmHg) O2 Sat by Pulse 93 96 Oximetry Oxygen Devices in Use Now: None Appearance: 62 yo F, sitting comofortably in bed in NAD, AAox3 Eyes: No Scleral Icterus, PERRLA Ears/Nose/Mouth/Throat: NL Teeth, Lips, Gums, Mucous Membranes Moist Neck: NL Appearance and Movements; NL JVP Respiratory: Symmetrical Chest Expansion and Respiratory Effort, - - crackles in R lower and mid lung Cardiovascular: RRR, - - 3/6 murmur over the entire precordium Abdominal: NL Sounds; No Tenderness; No Distention, No Hepatosplenomegaly Lymphatic: No Cervical Adenopathy Extremities: No Clubbing, Cyanosis, - - edema in B/l LE's up to pt's groins b/l , +2 pitting. left arm lymphoedema-chronic Skin: No Rash or Ulcers, No Nodules or Sclerosis Neurological: Alert and Oriented x 3, - - limited movement in flexion of R 1st 2nd finger due to peripheral neuropathy-chronic Result Diagrams: 04/01/18 19:10 04/02/18 06:34 Additional Lab and Data: Lab Results 04/01/18 04/01/18 04/01/18 Range/Units 19:10 19:10 19:10 WBC 7.3 (3.5-10.8) 10^3/ul RBC 4.51 (4.00-5.40) 10^6/ul Hgb 13.1 (12.0-16.0) g/dl Hct 40 (35-47) % MCV 89 (80-97) fL MCH 29 (27-31) pg MCHC 33 (31-36) g/dl RDW 17 H (10.5-15) % Plt Count 389 (150-450) 10^3/ul MPV 8.0 (7.4-10.4) um3 Neut % (Auto) 84.8 H (38-83) % Lymph % (Auto) 5.1 L (25-47) % [place] % (Auto) 9.0 H (0-7) % Eos % (Auto) 0.2 (0-6) % Baso % (Auto) 0.9 (0-2) % Absolute Neuts (auto) 6.2 (1.5-7.7) 10^3/ul Absolute Lymphs (auto) 0.4 L (1.0-4.8) 10^3/ul Absolute Monos (auto) 0.7 (0-0.8) 10^3/ul Absolute Eos (auto) 0 (0-0.6) 10^3/ul Absolute Basos (auto) 0.1 (0-0.2) 10^3/ul Absolute Nucleated RBC 0 10^3/ul Nucleated RBC % 0.1 Lactic Acid 1.5 (0.5-2.0) mmol/L B-Natriuretic Peptide 398 H ( - 100) pg/mL Assess/Plan/Problems-Billing Assessment: 62 year old female with history of lymphoma, radiation tx, chronic right pleural effusion and chronic LUE lymphedema that presents to ER with CHF - Patient Problems (1) CHF (congestive heart failure) Comment: pt's SBP's were low today and limited the use of diuretic. will start copression stockings and advised pt to keep her legs elevated. Will try to re-start Lasix in AM. Echo pending for tomorrow (2) Atrial fibrillation Comment: - On tikosyn and metoprolol. In NSR and LBBB on EKG-chronic (3) Hypothyroid Comment: - Continue synthroid, TSH 4.7 (4) History of Hodgkin's lymphoma Comment: - Stable, with chronic R loculated pleural effusion, residual R hand neuropathy and left arm lymphoedema (5) DVT prophylaxis Comment: cont Xarelto Status and Disposition: Inpatient
[2018-04-02] MEDS: clonazePAM TAB(*) 1 MG PO SCH (21:18)
[2018-04-03] MEDS: Levothyroxine TAB* 75 MCG TAB PO SCH (06:30)
[2018-04-03 07:25] LABS: Hematocrit 42 % (35-47); Hemoglobin 13.9 g/dl (12.0-16.0); Mean Corpuscular HGB Conc 33 g/dl (31-36); Mean Corpuscular Hemoglobin 30 pg (27-31); Mean Corpuscular Volume 90 fL (80-97); Mean Platelet Volume 7.5 um3 (7.4-10.4); Platelet Count 333 10^3/ul (150-450); Red Cell Distribution Width 17 % (10.5-15); White Blood Count 6.4 10^3/ul (3.5-10.8)
[2018-04-03 07:36] LABS: EGFR Non-African American 89.5 (>60)
[2018-04-03] MEDS: Famotidine TAB* 20 MG PO SCH (09:37)
[2018-04-03] MEDS: Dofetilide CAP* 250 MCG PO SCH ×2 (09:37→22:22)
[2018-04-03] MEDS: Metoprolol Tartrate TAB* 50 mg PO SCH ×2 (09:38→22:23)
[2018-04-03] MEDS: Rivaroxaban TAB(*) 20 MG TAB PO SCH (09:38)
[2018-04-03] MEDS: Furosemide IV* 10 MG/ML 2 ML VIAL (20 MG) IV SCH (09:38)
[2018-04-03] MEDS: Coenzyme Q10 (NF) ** ENTER STREGNTH IN LABEL DIRECTIONS PO SCH (09:39)
--- NOTE | 2018-04-03 09:42 | PN ---
Subjective Date of Service: 04/03/18 Interval History: Pt's leg edema is improving slowly. No additional complaints Objective Active Medications: Acetaminophen (Tylenol Tab*) 650 mg PO Q6H PRN PRN Reason: FEVER/PAIN Albuterol (Ventolin Hfa Inhaler*) 2 puff INH Q6H PRN PRN Reason: SOB/WHEEZING Clonazepam (Klonopin Tab(*)) 1 mg PO BEDTIME [facility] Last Admin: 04/02/18 21:18 Dose: 1 mg Coenzyme Q10 (Coenzyme Q10 (Nf)) 1 cap PO DAILY [facility] Last Admin: 04/02/18 07:49 Dose: Not Given Dofetilide (Tikosyn Cap*) 250 mcg PO BID [facility] Last Admin: 04/02/18 21:17 Dose: 250 mcg Famotidine (Pepcid Tab*) 20 mg PO DAILY [facility] Last Admin: 04/02/18 07:47 Dose: 20 mg Furosemide (Lasix Iv*) 20 mg IV DAILY [facility] Levothyroxine Sodium (Synthroid Tab*) 75 mcg PO 0600 [facility] Last Admin: 04/03/18 06:30 Dose: 75 mcg Metoprolol Tartrate (Lopressor Tab*) 50 mg PO BID [facility] Last Admin: 04/02/18 21:18 Dose: 50 mg Rivaroxaban (Xarelto(*)) 20 mg PO DAILY [facility] Last Admin: 04/02/18 07:47 Dose: 20 mg Vital Signs - 8 hr 04/03/18 04/03/18 03:49 08:16 Temperature 97.3 F 97.5 F Pulse Rate 76 77 Respiratory 22 17 Rate Blood Pressure 103/54 123/77 (mmHg) O2 Sat by Pulse 95 99 Oximetry Oxygen Devices in Use Now: None Appearance: 62 yo F in nAD, aAOx3 Eyes: No Scleral Icterus, PERRLA Ears/Nose/Mouth/Throat: NL Teeth, Lips, Gums, Mucous Membranes Moist Neck: NL Appearance and Movements; NL JVP, Trachea Midline Respiratory: - - R chest crackles t lower to mid lung Cardiovascular: - - 3/6 ROSALBA Abdominal: NL Sounds; No Tenderness; No Distention, No Hepatosplenomegaly Lymphatic: No Cervical Adenopathy Extremities: No Clubbing, Cyanosis, - - left arm chronic lymphoedema, b/l leg pitting edema all the way to b/l groins-improving. Skin: No Nodules or Sclerosis Neurological: Alert and Oriented x 3, - - unable to flex 1st , 2nd finger on R- chronic Result Diagrams: 04/03/18 06:53 04/03/18 06:53 Additional Lab and Data: Lab Results 04/01/18 04/01/18 04/01/18 Range/Units 19:10 19:10 19:10 WBC 7.3 (3.5-10.8) 10^3/ul RBC 4.51 (4.00-5.40) 10^6/ul Hgb 13.1 (12.0-16.0) g/dl Hct 40 (35-47) % MCV 89 (80-97) fL MCH 29 (27-31) pg MCHC 33 (31-36) g/dl RDW 17 H (10.5-15) % Plt Count 389 (150-450) 10^3/ul MPV 8.0 (7.4-10.4) um3 Neut % (Auto) 84.8 H (38-83) % Lymph % (Auto) 5.1 L (25-47) % [place] % (Auto) 9.0 H (0-7) % Eos % (Auto) 0.2 (0-6) % Baso % (Auto) 0.9 (0-2) % Absolute Neuts (auto) 6.2 (1.5-7.7) 10^3/ul Absolute Lymphs (auto) 0.4 L (1.0-4.8) 10^3/ul Absolute Monos (auto) 0.7 (0-0.8) 10^3/ul Absolute Eos (auto) 0 (0-0.6) 10^3/ul Absolute Basos (auto) 0.1 (0-0.2) 10^3/ul Absolute Nucleated RBC 0 10^3/ul Nucleated RBC % 0.1 Lactic Acid 1.5 (0.5-2.0) mmol/L B-Natriuretic Peptide 398 H ( - 100) pg/mL Assess/Plan/Problems-Billing Assessment: 62 year old female with history of lymphoma, radiation tx, chronic right pleural effusion and chronic LUE lymphedema that presents to ER with CHF - Patient Problems (1) CHF (congestive heart failure) Comment: pt's SBP's improved. Cont Lasix nd give additional dose tonight Cont copression stockings and advised pt to keep her legs elevated. Echo pending (2) Atrial fibrillation Comment: - On tikosyn and metoprolol. In NSR and LBBB on EKG-chronic (3) Hypothyroid Comment: - Continue synthroid, TSH 4.7 (4) History of Hodgkin's lymphoma Comment: - Stable, with chronic R loculated pleural effusion, residual R hand neuropathy and left arm lymphoedema (5) DVT prophylaxis Comment: cont Xarelto Status and Disposition: Inpatient
[2018-04-03] MEDS ORDERED: Furosemide IV* 10 MG/ML 2 ML VIAL (20 MG) IV SLOW PU ONE (17:00)
[2018-04-03] MEDS: clonazePAM TAB(*) 1 MG PO SCH (22:23)
[2018-04-04] MEDS: Levothyroxine TAB* 75 MCG TAB PO SCH (06:14)
[2018-04-04] MEDS: Furosemide IV* 10 MG/ML 2 ML VIAL (20 MG) IV SCH (08:22)
[2018-04-04] MEDS: Famotidine TAB* 20 MG PO SCH (08:22)
[2018-04-04] MEDS: Rivaroxaban TAB(*) 20 MG TAB PO SCH (08:22)
[2018-04-04] MEDS: Dofetilide CAP* 250 MCG PO SCH ×2 (08:22→21:01)
[2018-04-04] MEDS: Metoprolol Tartrate TAB* 50 mg PO SCH ×2 (08:22→21:01)
[2018-04-04 08:48] LABS: EGFR Non-African American 94.3 (>60)
[2018-04-04] MEDS ORDERED: Perflutren Lipid Microsphere* 3 ML VIAL ONE (10:56)
[2018-04-04] MEDS ORDERED: Potassium Chlor TAB* 20 MEQ TAB.ER PO ONE (13:22)
--- NOTE | 2018-04-04 14:24 | PN ---
Subjective Date of Service: 04/04/18 Interval History: Pt is feeling better. Leg edema still present. Denies CP/SOB Objective Active Medications: Acetaminophen (Tylenol Tab*) 650 mg PO Q6H PRN PRN Reason: FEVER/PAIN Albuterol (Ventolin Hfa Inhaler*) 2 puff INH Q6H PRN PRN Reason: SOB/WHEEZING Clonazepam (Klonopin Tab(*)) 1 mg PO BEDTIME [facility] Last Admin: 04/03/18 22:23 Dose: 1 mg Dofetilide (Tikosyn Cap*) 250 mcg PO BID [facility] Last Admin: 04/04/18 08:22 Dose: 250 mcg Famotidine (Pepcid Tab*) 20 mg PO DAILY [facility] Last Admin: 04/04/18 08:22 Dose: 20 mg Furosemide (Lasix Iv*) 20 mg IV DAILY [facility] Last Admin: 04/04/18 08:22 Dose: 20 mg Furosemide (Lasix Iv*) 20 mg IV ONCE ONE Stop: 04/04/18 17:01 Levothyroxine Sodium (Synthroid Tab*) 75 mcg PO 0600 [facility] Last Admin: 04/04/18 06:14 Dose: 75 mcg Metoprolol Tartrate (Lopressor Tab*) 50 mg PO BID [facility] Last Admin: 04/04/18 08:22 Dose: 50 mg Rivaroxaban (Xarelto(*)) 20 mg PO DAILY [facility] Last Admin: 04/04/18 08:22 Dose: 20 mg Vital Signs - 8 hr 04/04/18 04/04/18 04/04/18 08:00 08:18 13:17 Temperature 97.5 F 97.6 F Pulse Rate 77 69 Respiratory 20 30 28 Rate Blood Pressure 119/70 91/48 (mmHg) O2 Sat by Pulse 96 97 Oximetry Oxygen Devices in Use Now: None Appearance: 62 yo F in nAD, aAOx3 Eyes: No Scleral Icterus, PERRLA Ears/Nose/Mouth/Throat: NL Teeth, Lips, Gums, Mucous Membranes Moist Neck: NL Appearance and Movements; NL JVP, Trachea Midline Respiratory: Symmetrical Chest Expansion and Respiratory Effort, - - crackles at RLL, RML Cardiovascular: RRR, - - 3/6 ROSALBA Abdominal: NL Sounds; No Tenderness; No Distention, No Hepatosplenomegaly Lymphatic: No Cervical Adenopathy Extremities: No Clubbing, Cyanosis, - - leg edema, pitting , from b/l feet to pt 's waist. L arm lymphedema-chronic. Skin: No Nodules or Sclerosis Neurological: Alert and Oriented x 3, - - R 1st 2nd figer flexion limited due to chronic nephropathy Result Diagrams: 04/03/18 06:53 04/04/18 08:03 Additional Lab and Data: Lab Results 04/01/18 04/01/18 04/01/18 Range/Units 19:10 19:10 19:10 WBC 7.3 (3.5-10.8) 10^3/ul RBC 4.51 (4.00-5.40) 10^6/ul Hgb 13.1 (12.0-16.0) g/dl Hct 40 (35-47) % MCV 89 (80-97) fL MCH 29 (27-31) pg MCHC 33 (31-36) g/dl RDW 17 H (10.5-15) % Plt Count 389 (150-450) 10^3/ul MPV 8.0 (7.4-10.4) um3 Neut % (Auto) 84.8 H (38-83) % Lymph % (Auto) 5.1 L (25-47) % [place] % (Auto) 9.0 H (0-7) % Eos % (Auto) 0.2 (0-6) % Baso % (Auto) 0.9 (0-2) % Absolute Neuts (auto) 6.2 (1.5-7.7) 10^3/ul Absolute Lymphs (auto) 0.4 L (1.0-4.8) 10^3/ul Absolute Monos (auto) 0.7 (0-0.8) 10^3/ul Absolute Eos (auto) 0 (0-0.6) 10^3/ul Absolute Basos (auto) 0.1 (0-0.2) 10^3/ul Absolute Nucleated RBC 0 10^3/ul Nucleated RBC % 0.1 Lactic Acid 1.5 (0.5-2.0) mmol/L B-Natriuretic Peptide 398 H ( - 100) pg/mL Assess/Plan/Problems-Billing Assessment: 62 year old female with history of lymphoma, radiation tx, chronic right pleural effusion and chronic LUE lymphedema that presents to ER with CHF - Patient Problems (1) CHF (congestive heart failure) Comment: Cont Lasix nd give additional dose tonight Cont copression stockings and advised pt to keep her legs elevated. Echo pending (2) Atrial fibrillation Comment: - On tikosyn and metoprolol. In NSR and LBBB on EKG-chronic (3) Hypothyroid Comment: - Continue synthroid, TSH 4.7 (4) History of Hodgkin's lymphoma Comment: - Stable, with chronic R loculated pleural effusion, residual R hand neuropathy and left arm lymphoedema (5) DVT prophylaxis Comment: cont Xarelto Status and Disposition: Inpatient, cont inpatient diuresis, awaiting Echo
--- NOTE | 2018-04-04 15:33 | ECHO ---
Patient: MINE PATEL [facility] Rec#: [id number] : 1955 Date: 04/04/2018 Age: 62y Height: 168 cm / 66.1 in Weight: 177 kg / 390.1 lbs Sex: F BSA: 2.66 Room#: [facility] Admit Date#: 04/01/2018 Type: Inpatient Referring: Isi Mattson DO Reading: Ten Fuentes MD [employer] Developer: Khushbu Méndez RDCS CC: Milena Rose MD CC: Philip Chirinos MD Transthoracic Echocardiogram Indication: CHF BP: 120/69 HR: 67 Rhythm: NSR Findings History: PAF,CAD,COPD,PHTN,lymphoma,former smoker, left upper extremity edema. Study done with patient supine. Technical Comments: The study is technically limited due to the patient's history of COPD. Completed at 1220. The study was technically limited due to the patient's inability to lay in the left lateral decubitus position. Definity used to enhance images. Left Ventricle: The left ventricular chamber size is normal. Mild global hypokinesis of the left ventricle is observed. There is mildly decreased left ventricular systolic function. The estimated ejection fraction is 45-50%. The assessment of diastolic function is non-diagnostic. Left Atrium: The left atrial chamber size is normal. Right Ventricle: The right ventricle is not well visualized. Right Atrium: The right atrium is not well visualized. Aortic Valve: The aortic valve is trileaflet. The aortic valve leaflets are mildly thickened. There is mild aortic regurgitation. There is mild aortic stenosis. The mean gradient of the aortic valve is 8 mmHg. Highest aortic valve velocity was acquired with Pedoff in right sternal border position. Mitral Valve: The mitral valve leaflets are mildly thickened. There is mild to moderate mitral regurgitation. There is no evidence of mitral stenosis. Tricuspid Valve: The tricuspid valve leaflets are normal. There is mild tricuspid regurgitation. There is evidence of mild pulmonary hypertension. There is no tricuspid stenosis. Pulmonic Valve: The pulmonic valve appears normal. There is no evidence of pulmonic regurgitation. There is no pulmonic stenosis. Pericardium: The pericardium appears normal. A left pleural effusion is present. There is a moderate pleural effusion. Aorta: There is no dilatation of the ascending aorta. There is no dilatation of the aortic arch. There is no dilation of the aortic root. Pulmonary Artery: The main pulmonary artery appears normal. Venous: The venous system is not well visualized. Contrast: Definity was used to optimize study. A total of 3 ml used. Intravenous contrast was used to enhance endocardial border definition. Conclusions Mild global hypokinesis of the left ventricle is observed. There is mildly decreased left ventricular systolic function. The estimated ejection fraction is 45-50%. There is mild aortic regurgitation. There is mild aortic stenosis. The mean gradient of the aortic valve is 8 mmHg. There is mild to moderate mitral regurgitation. There is no evidence of mitral stenosis. There is mild tricuspid regurgitation. There is evidence of mild pulmonary hypertension. The pericardium appears normal. A left pleural effusion is present. Compared to study of 11/26/17, the LV function may be slightly lower Measurements Name Value Normal Range RVIDd (AP) 2D 2.4 cm (0.9 - 2.6) IVSd (2D) 0.6 cm (0.6 - 1) LVPWd (2D) 0.7 cm (0.6 - 1) LVIDd (2D) 4.2 cm (3.6 - 5.4) LVIDs (2D) 3.4 cm - LV FS (2D) 19 % (25 - 45) Aortic Annulus 1.7 cm (1.4 - 2.6) Ao root diameter (2D) 3.1 cm (2.1 - 3.5) Ascending Ao 2.7 cm (2.1 - 3.4) Aortic arch 2.2 cm (1.8 - 3.4) Descending Ao 0.5 cm - LA dimension (AP) 2D 2.9 cm (2.3 - 3.8) Name Value Normal Range MV E-wave Vmax 1.3 m/sec - MV deceleration time 250 msec - MV A-wave Vmax 0.5 m/sec - MV E:A ratio 2.3 ratio - LV septal e' Vmax 0.06 m/sec - LV lateral e' Vmax 0.07 m/sec - LV E:e' septal ratio 21.67 ratio - LV E:e' lateral ratio 18.57 ratio - Name Value Normal Range AV Vmax 2 m/sec - AV VTI 45.4 cm - AV peak gradient 16 mmHg - AV mean gradient 8 mmHg - LVOT diameter 2 cm - LVOT Vmax 0.6 m/sec - LVOT VTI 10.5 cm - LVOT peak gradient 1 mmHg - LVOT mean gradient 1 mmHg - MARYLOU (continuity Vmax) 0.9 cm2 - MARYLOU (continuity VTI) 0.7 cm2 - AR PHT 343 msec - Name Value Normal Range MR Vmax 4 m/sec - MR VTI 134 cm - Name Value Normal Range TR Vmax 2.7 m/sec - TR peak gradient 30 mmHg - RAP 8 mmHg - RVSP 38 mmHg - Name Value Normal Range PV Vmax 0.4 m/sec - PV peak gradient 1 mmHg -
[2018-04-04] MEDS ORDERED: Furosemide IV* 10 MG/ML 2 ML VIAL (20 MG) IV ONE (17:00)
[2018-04-04] MEDS: clonazePAM TAB(*) 1 MG PO SCH (21:01)
[2018-04-05] MEDS: Levothyroxine TAB* 75 MCG TAB PO SCH (05:20)
[2018-04-05 07:27] LABS: EGFR Non-African American 94.3 (>60)
[2018-04-05] MEDS: Rivaroxaban TAB(*) 20 MG TAB PO SCH (09:02)
[2018-04-05] MEDS: Dofetilide CAP* 250 MCG PO SCH ×2 (09:02→22:15)
[2018-04-05] MEDS: Famotidine TAB* 20 MG PO SCH (09:02)
[2018-04-05] MEDS: Metoprolol Tartrate TAB* 50 mg PO SCH ×2 (09:03→22:15)
[2018-04-05] MEDS: Furosemide IV* 10 MG/ML 2 ML VIAL (20 MG) IV SCH (09:03)
--- NOTE | 2018-04-05 13:20 | PN ---
Subjective Date of Service: 04/05/18 Interval History: HOSPITALIST PROGRESS NOTE Patient seen and examined at bedside. Care reviewed and d/w Sherley Boggs RN. She feels better today. Breathing is improved and her legs are "much better. I have knees again!". Describes weight gain 20lbs prior to admission. Family History: Unchanged from Admission Social History: Unchanged from Admission Past Medical History: Unchanged from Admission Objective Active Medications: Acetaminophen (Tylenol Tab*) 650 mg PO Q6H PRN PRN Reason: FEVER/PAIN Albuterol (Ventolin Hfa Inhaler*) 2 puff INH Q6H PRN PRN Reason: SOB/WHEEZING Clonazepam (Klonopin Tab(*)) 1 mg PO BEDTIME [facility] Last Admin: 04/04/18 21:01 Dose: 1 mg Dofetilide (Tikosyn Cap*) 250 mcg PO BID [facility] Last Admin: 04/05/18 09:02 Dose: 250 mcg Famotidine (Pepcid Tab*) 20 mg PO DAILY [facility] Last Admin: 04/05/18 09:02 Dose: 20 mg Furosemide (Lasix Iv*) 20 mg IV DAILY [facility] Last Admin: 04/05/18 09:03 Dose: 20 mg Levothyroxine Sodium (Synthroid Tab*) 75 mcg PO 0600 [facility] Last Admin: 04/05/18 05:20 Dose: 75 mcg Metoprolol Tartrate (Lopressor Tab*) 50 mg PO BID [facility] Last Admin: 04/05/18 09:03 Dose: 50 mg Rivaroxaban (Xarelto(*)) 20 mg PO DAILY [facility] Last Admin: 04/05/18 09:02 Dose: 20 mg Vital Signs - 8 hr 04/05/18 07:31 Temperature 97.3 F Pulse Rate 78 Respiratory 18 Rate Blood Pressure 105/63 (mmHg) O2 Sat by Pulse 98 Oximetry Oxygen Devices in Use Now: None Appearance: Pleasant lady sitting up in bed in NAD. Eyes: No Scleral Icterus Ears/Nose/Mouth/Throat: Mucous Membranes Moist Neck: Trachea Midline Respiratory: Symmetrical Chest Expansion and Respiratory Effort, - - BS+ bilaterally with right base crackles Cardiovascular: RRR - Normal S1 and S2, +SM Abdominal: NL Sounds; No Tenderness; No Distention Extremities: - - Bilateral LE pitting edema. LUE edema is chronic Neurological: Alert and Oriented x 3, NL Muscle Strength and Tone Result Diagrams: 04/03/18 06:53 04/05/18 06:36 Assess/Plan/Problems-Billing Assessment: Mrs. Traylor is a 62yo F with history of lymphoma, radiation tx, chronic right pleural effusion and chronic LUE lymphedema that presents to ER with CHF. - Patient Problems (1) CHF (congestive heart failure) Comment: - Acute diastolic CHF exacerbation. - Echo showed EF 45-50%. - Weight is down to 171lbs, from 182lbs on admission. - Continue IV Furosemide, compression stockings, and leg elevation. - Continue Metoprolol. - No ACEI/ARB for now due to low BP - may be added as outpatient. - (2) Atrial fibrillation Comment: - On Tikosyn and Metoprolol - in NSR with LBBB (chronic). - Continue Xarelto. (3) Hypothyroid Comment: - TSH 4.7. - Continue Levothyroxine. (4) History of Hodgkin's lymphoma Comment: - Stable, with chronic R loculated pleural effusion, residual R hand neuropathy and left arm lymphedema. (5) DVT prophylaxis Comment: - Continue Xarelto. (6) Full code status Status and Disposition: Inpatient, cont inpatient diuresis, awaiting Echo
[2018-04-05] MEDS: clonazePAM TAB(*) 1 MG PO SCH (22:14)
[2018-04-06] MEDS: Levothyroxine TAB* 75 MCG TAB PO SCH (05:41)
[2018-04-06 08:32] LABS: EGFR Non-African American 75.1 (>60)
[2018-04-06] MEDS: Famotidine TAB* 20 MG PO SCH (09:15)
[2018-04-06] MEDS: Metoprolol Tartrate TAB* 50 mg PO SCH ×2 (09:15→21:58)
[2018-04-06] MEDS: Furosemide IV* 10 MG/ML 2 ML VIAL (20 MG) IV SCH (09:16)
[2018-04-06] MEDS: Dofetilide CAP* 250 MCG PO SCH ×2 (09:16→21:58)
[2018-04-06] MEDS: Rivaroxaban TAB(*) 20 MG TAB PO SCH (09:16)
[2018-04-06] MEDS ORDERED: Iodixanol* (CONTRAST) 320 MG/ML 100 ML SDV IV ONE (13:59)
--- NOTE | 2018-04-06 14:30 | PN ---
Subjective Date of Service: 04/06/18 Interval History: HOSPITALIST PROGRESS NOTE Patient seen and examined at bedside. Care reviewed and d/w Sherley Boggs RN. She feels a little better today, impressed with her weight loss so far. Denies dyspnea, chest pain, or palpitations. Family History: Unchanged from Admission Social History: Unchanged from Admission Past Medical History: Unchanged from Admission Objective Active Medications: Acetaminophen (Tylenol Tab*) 650 mg PO Q6H PRN PRN Reason: FEVER/PAIN Albuterol (Ventolin Hfa Inhaler*) 2 puff INH Q6H PRN PRN Reason: SOB/WHEEZING Clonazepam (Klonopin Tab(*)) 1 mg PO BEDTIME [facility] Last Admin: 04/05/18 22:14 Dose: 1 mg Dofetilide (Tikosyn Cap*) 250 mcg PO BID [facility] Last Admin: 04/06/18 09:16 Dose: 250 mcg Famotidine (Pepcid Tab*) 20 mg PO DAILY [facility] Last Admin: 04/06/18 09:15 Dose: 20 mg Furosemide (Lasix Iv*) 20 mg IV DAILY [facility] Last Admin: 04/06/18 09:16 Dose: 20 mg Levothyroxine Sodium (Synthroid Tab*) 75 mcg PO 0600 [facility] Last Admin: 04/06/18 05:41 Dose: 75 mcg Metoprolol Tartrate (Lopressor Tab*) 50 mg PO BID [facility] Last Admin: 04/06/18 09:15 Dose: 50 mg Rivaroxaban (Xarelto(*)) 20 mg PO DAILY [facility] Last Admin: 04/06/18 09:16 Dose: 20 mg Vital Signs - 8 hr 04/06/18 04/06/18 04/06/18 08:00 08:01 08:23 Temperature 97.3 F Pulse Rate 77 Respiratory 28 32 28 Rate Blood Pressure 101/56 (mmHg) O2 Sat by Pulse 97 Oximetry 04/06/18 11:22 Temperature 97.4 F Pulse Rate 75 Respiratory 18 Rate Blood Pressure 98/57 (mmHg) O2 Sat by Pulse 96 Oximetry Oxygen Devices in Use Now: None Appearance: Pleasant lady lying in bed in NAD, with legs elevated. Eyes: No Scleral Icterus Ears/Nose/Mouth/Throat: Mucous Membranes Moist Neck: Trachea Midline Respiratory: Symmetrical Chest Expansion and Respiratory Effort, Clear to Auscultation Cardiovascular: RRR - Normal S1 and S2 Extremities: - - BIlateral LE pitting edema up to her thighs Neurological: Alert and Oriented x 3, NL Muscle Strength and Tone Result Diagrams: 04/03/18 06:53 04/06/18 08:06 Assess/Plan/Problems-Billing Assessment: Mrs. Traylor is a 62yo F with history of lymphoma, radiation tx, chronic right pleural effusion and chronic LUE lymphedema that presents to ER with CHF. - Patient Problems (1) CHF (congestive heart failure) Comment: - Acute diastolic CHF exacerbation/ right sided heart failure. - Echo showed EF 45-50%. - Weight is down to 167lbs, from 182lbs on admission, but she seems to have gained >20lbs prior to admission. - Continue IV Furosemide, MEHREEN wrap, and leg elevation. - Continue Metoprolol. - No ACEI/ARB for now due to low BP - may be added as outpatient. - Her edema seems to be disproportionate to her degree of CHF - will check UA to t/o proteinuria; check CT chest looking for signs of constrictive pericarditis. (2) Atrial fibrillation Comment: - On Tikosyn and Metoprolol - in NSR with LBBB (chronic). - Continue Xarelto. (3) Hypothyroid Comment: - TSH 4.7. - Continue Levothyroxine. (4) History of Hodgkin's lymphoma Comment: - Stable, with chronic R loculated pleural effusion, residual R hand neuropathy and left arm lymphedema. (5) DVT prophylaxis Comment: - Continue Xarelto. (6) Full code status Status and Disposition: Inpatient
[2018-04-06 15:57] LABS: Urine Appearance Clear; Urine Blood Negative (Negative); Urine Color Straw; Urine Ketones Negative (Negative); Urine Protein Negative (Negative); Urine Specific Gravity 1.006 (1.010-1.030); Urine Urobilinogen Negative (Negative)
--- NOTE | 2018-04-06 16:36 | RAD ---
HISTORY: Right heart failure, prior Hodgkins with radiation COMPARISONS: March 22, 2013 TECHNIQUE: Multiple contiguous axial CT scans of the chest were obtained with intravenous contrast. Coronal and sagittal multiplanar reformations are also submitted for review. FINDINGS: NECK AND THYROID: The lower neck and thyroid are unremarkable. CHEST WALL: There has been interval development of a 1.6 cm enhancing mass of the left central breast. HEART AND PERICARDIUM: There is right atrial and right ventricular enlargement AORTA AND PULMONARY VASCULATURE: The aorta and pulmonary vasculature are normal. MEDIASTINUM: There is no mediastinal lymphadenopathy by size criteria. TINA: There is no hilar lymphadenopathy by size criteria. AIRWAY AND ESOPHAGUS: The airway is unremarkable, without endobronchial filling defect. The esophagus is grossly normal. LUNG PARENCHYMA: There are parasagittal fibrotic changes involving the right upper lobe, likely related to treatment effect. These are similar to the previous examination. There is compressive atelectasis of the right lung base. PLEURA: Again noted is a loculated pleural effusion on the right, similar in size and appearance to the 2013 examination. There is a small to moderate layering left pleural effusion. UPPER ABDOMEN: The upper abdomen is unremarkable. 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 Mild degenerative changes are noted of the spine. OTHER: None. IMPRESSION: 1. THERE HAS BEEN INTERVAL DEVELOPMENT OF A 1.6 CM ENHANCING MASS OF THE LEFT CENTRAL BREAST. RECOMMEND CONSIDERATION OF DEDICATED IMAGING OF THE BREAST AND/OR TISSUE SAMPLING. 2. AGAIN NOTED IS A LOCULATED PLEURAL EFFUSION ON THE RIGHT, SIMILAR IN APPEARANCE OF 2013 EXAMINATION. THERE IS A SMALL TO MODERATE LAYERING PLEURAL EFFUSION ON THE LEFT. 3. AGAIN NOTED ARE PARAMEDIASTINAL FIBROTIC CHANGES LIKELY RELATED TO TREATMENT EFFECT. 4. RIGHT ATRIAL AND RIGHT VENTRICULAR ENLARGEMENT.
--- NOTE | 2018-04-06 18:30 | ECHO ---
Patient: MINE PATEL [facility] Rec#: [id number] : 1955 Date: 04/06/2018 Age: 62y Height: 168 cm / 66.1 in Weight: 75.88 kg / 167.2 lbs Sex: F BSA: 1.86 Room#: [facility] Admit Date#: 04/01/2018 Type: Inpatient Referring: Lucy Ferrer MD Reading: Milena Rose MD Records Analysis Manager: Marialuisa Bhatt RDCS CC: Philip Chirinos MD Transthoracic Echocardiogram Indication: F/U CHF, edema BP: 90/49 HR: 75 Rhythm: NSR Findings History: PAF, CAD, COPD, PHTN, lympoma, former smoker. This is a LIMITED study to evaluate respiratory variation. Technical Comments: The study quality is fair. The study was technically limited due to the patient's inability to lay in the left lateral decubitus position. Left Ventricle: The left ventricular chamber size is normal. There is mildly decreased left ventricular systolic function. The estimated ejection fraction is 45-50%. There is no consistent Doppler evidence of clinically significant diastolic dysfunction. Right Ventricle: The right ventricular global systolic function is mildly to moderately reduced. Mitral Valve: There is mitral annular calcification. The mitral valve leaflets are mildly thickened. There is mild to moderate mitral regurgitation. There is no evidence of mitral stenosis. Tricuspid Valve: The tricuspid valve leaflets are normal. There is mild tricuspid regurgitation. The right ventricular systolic pressure is estimated at 33 mmHg. There is evidence that pulmonary hypertension may be underestimated. There is no tricuspid stenosis. Pericardium: There is no significant pericardial effusion.No evidence of constrictive physiology. Respiratory variation across valves: MV: 15% TV 14% LVOT: 12% A pericardial fat pad is visualized. Conclusions Limited evaluation: The estimated ejection fraction is 45-50%. The right ventricular global systolic function is mildly to moderately reduced. There is mild to moderate mitral regurgitation, lateral jet. There is mild tricuspid regurgitation. The right ventricular systolic pressure is estimated at 33 mmHg, may be underestimated. See complete echo of 04/04/18 for additional information. Measurements Name Value Normal Range MV E-wave Vmax 1.24 m/sec - MV deceleration time 243 msec - MV A-wave Vmax 0.7 m/sec - MV E:A ratio 1.7 ratio - LV septal e' Vmax 0.05 m/sec - LV lateral e' Vmax 0.1 m/sec - LV E:e' septal ratio 24.8 ratio - LV E:e' lateral ratio 12.4 ratio - Name Value Normal Range TR Vmax 2.5 m/sec - TR peak gradient 25 mmHg - RAP 8 mmHg - RVSP 33 mmHg -
[2018-04-06] MEDS: clonazePAM TAB(*) 1 MG PO SCH (21:57)
--- NOTE | 2018-04-07 02:33 | CONS ---
CC: [facility]; Dr. Philip Chirinos * CONSULTATION REPORT: DATE OF CONSULT: 04/06/18 REASON FOR CONSULTATION: Anasarca. CHIEF COMPLAINT: Shortness of breath and leg edema. HISTORY OF PRESENT ILLNESS: Ms. Traylor is a 62-year-old patient whom I follow for many years, with a history of Hodgkin lymphoma, radiation therapy, pulmonary hypertension, and paroxysmal AFib. The patient called our office on 03/29/18, informing us that she has had increasing edema of the lower legs. She had seen her primary care physician in late February and Lasix was started, but her edema did not improve. She was then seen in our office by a nurse practitioner on 04/01/18, who referred her to the hospital for marked volume overload. Her exam noted that since January the patient started developing swelling in the legs and on our scales she had had a 13-pound weight gain. She had 3+ pitting edema in our office. Today, the patient states that since August 2017, she had been eating a lot of salty food, she specifically mentioned pickles, as if she seemed to crave salt and was just consistently eating high-salt food. She was developing shortness of breath and she corroborated that it was not until this summer that she started to notice swelling in her feet. She thinks on her home scale, she put on about 20 pounds and she was having trouble doing things due to her combination of being short of breath and tired that also her legs, uncomfortable with her legs. The patient denied missing any medications. We had converted Lopressor to atenolol because of concerns of COPD. She denied palpitations or racing of the heart and she has been taking her Tikosyn and Xarelto regularly. PAST MEDICAL HISTORY: The patient has a past medical history of: 1. Hodgkin lymphoma, 1987, with recurrence in 1990, treated with Adriamycin and radiation therapy. 2. Coronary artery disease, branch disease in the diagonal, 2010, 65-70% occlusion of second diagonal, 15-20% proximal LAD, 15% right coronary artery. 3. Paroxysmal atrial fibrillation (Tikosyn). 4. History of atrial flutter. 5. Mitral insufficiency, mild to moderate. 6. Tricuspid insufficiency. 7. Intermittent pulmonary hypertension (echo November 2010, PA pressure 55-60; February 2011, PA pressure 40; 2013 PA pressure of 65; November 2017, PA pressure of 32 ). 8. Elevated left ventricular end diastolic pressure, on cardiac catheterization , 2010 (22). 9. History of recurrent cellulitis. 10. Pleural effusion, chronic, related to Hodgkin lymphoma. 11. Hypothyroid disease. 12. Lymphedema of the left upper extremity related to Hodgkin lymphoma. 13. COPD. PAST SURGICAL HISTORY: 1. Status post staging laparotomy for Hodgkin disease including splenectomy and appendectomy. 2. Right VATS procedure. MEDICATIONS: Inpatient medications currently include: 1. Tylenol p.r.n. 2. Ventolin inhaler 2 puffs q. 6 hours p.r.n. 3. Klonopin 1 mg q.h.s. 4. Tikosyn 250 mcg b.i.d. 5. Pepcid 20 mg a day. 6. Lasix 20 mg IV push daily. 7. Synthroid 75 mcg a day. 8. Metoprolol 50 mg b.i.d. 9. Xarelto 20 mg a day. ALLERGIES: Allergies and intolerance include SOTALOL, CLINDAMYCIN, DRONEDARONE , LEVOFLOXACIN, PENICILLIN. FAMILY HISTORY: Significant for the patient's mother at age 80, unknown reasons. Her father at age 56 with throat cancer. 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 She smoked 2 packs of cigarettes a day but quit in the past. Used marijuana in the past with chemotherapy. Rare alcohol use. Works out at the gym. REVIEW OF SYSTEMS: See history of present illness, but of significance, she admits to eating a fair amount of salt for over 6 months. She has had increasing shortness of breath and orthopnea for several months and an increasing lower extremity edema since this summer and increasing weight gain. She denies fevers, chills, sweats, chest discomfort. She has had a decline in functional ability. She denies fevers, chills, sweats, weight loss. Her appetite has been okay. All other 14-point review of systems was unremarkable. PHYSICAL EXAM: The patient is 5 feet 6 inches, weighs 167 pounds with a BMI of 27. Vital Signs: On admission, on 04/01/18 in the emergency room, blood pressure 99/80, pulse was 77 and regular, respiratory rate was 16, oxygen saturation 95% on room air, and she was afebrile. Blood pressure today 113/62, respiratory rate 16, oxygen saturation 98% on room air, and pulse was 84 and regular. Her weight on 04/02/18 was 182 pounds and her weight today is 171 pounds. General Appearance: Overweight, old, somewhat older woman, lying in a V -position with legs and head elevated, appearing comfortable, in no acute distress. Psychologically, pleasant and cooperative. Neurologically, awake, alert, and oriented to person, place, and time. Cranial nerves II through XII intact. Grossly normal sensory and motor function in the upper and lower extremities in the bed. Skin: Fair, somewhat freckled complexion, without cyanosis or rashes. No ulcerations. HEENT: Pupils equal and round. Mucous membranes moderately moist. Neck: Without appreciable increased JVD. Breath sounds were clear with good effort. No wheezes, rales, or rhonchi. Coronary: S1, S2, regular with a 3/6 systolic murmur heard in the upper sternal border with radiation. Abdomen: Somewhat distended. Nontender. I did not appreciate hepatomegaly. Lower extremities show 2+ edema, but up to the upper thighs. DIAGNOSTIC STUDIES/LAB DATA: A 12-lead ECG on the day of admission from the office, 04/01/18 showed normal sinus rhythm with a left bundle-branch block. Emergency room EKG from the same day showed normal sinus rhythm, left bundle- branch block, 80 beats a minute, QRS axis +30. Echocardiogram from 04/02/18 showed an ejection fraction of 45-50%, mild aortic insufficiency, mild aortic stenosis with a mean gradient of 8 mmHg, mild to moderate mitral regurgitation, mild tricuspid insufficiency, and PA pressure estimated at 38 mmHg. Additional views obtained today were negative for constrictive physiology. Chest x-ray from 04/01/18, shows increase in density overlying the lateral right upper lung field representing pleural mass or increasing pleural fluid, densities overlying the mid level right lung unchanged, left lung base density of the lung base with the costophrenic angle consistent with small pleural effusion. CT of the chest done today shows 1.6 cm enhancing mass in the left central breast. Loculated pleural effusion in the right, similar in appearance to 2013. Small layering pleural effusion in the left. Paramediastinal fibrotic changes consistent with treatment and right atrial and right ventricular enlargement. Labs from 04/03/18, hematocrit 42, white count 4.6, platelet 333. From today, sodium 136, potassium 4.0, chloride 95, bicarb 36. BUN 23, creatinine 0.78. Glucose 108. Calcium 9.1. Magnesium 1.8. BNP from 04/01/18, 398. Troponin 0.01. Total protein 6.1, albumin 3.1. TSH 4.78. Urinalysis from 04/06/18 shows specific gravity 1.006. No evidence of infection. IMPRESSION AND PLAN: Kallie Traylor is a 62-year-old woman admitted with shortness of breath, increased lower extremity edema and weight gain and the lower extremity edema was very marked up to the thighs and 3+. She has been responding to IV Lasix with weight loss and improvement in lower extremity edema. Because it was profound and somewhat refractory, I was asked to see the patient. I am looking over Kallie's echoes serially for many years, she has been prone to an increase in her left ventricular end diastolic pressures and had intermittent pulmonary hypertension with PA pressures as high as 65 mmHg. I suspect Kallie's propensity for pulmonary hypertension involving overload and is related to a stiff ventricle and valvular heart disease involving primarily the aortic and mitral valves and this could very likely be radiation effect. Although, chronic obstructive pulmonary disease from prior smoking could impact as well. I will continue with aggressive IV diuresis. Kallie is going to be prone to volume overload lifelong and is going to be have to be more careful and meticulous in those people. At this point, I think we are going to need to put Kallie on regular diuretics on discharge and she is going to need to get a good scale and check daily weights at home and aim for dry weight and will likely need quite careful monitoring on discharge. Since her right heart failure is more profound than her left heart failure and there is evidence of chronic pulmonary issues with chronic pleural effusion and evidence of right ventricular enlargement, we could get overnight oximetries to see if she would benefit from oxygen at night and any optimization of medications for any pulmonary issues, chronic obstructive pulmonary disease, or damage from radiation should be implemented if any improvement is possible beyond improvement in her fluid control. For the patient's paroxysmal atrial fibrillation, she is maintaining sinus rhythm with Tikosyn and she would be very intolerant of recurrent atrial fibrillation, flutter, so I would like to continue this as well as chronic anticoagulation. For the patient's atherosclerotic heart disease, fortunately there is no evidence of angina and her initial troponin was negative, but we should continue with aggressive risk factor modification with diet, lifestyle, and optimization of atherosclerotic risk of hypertension and dyslipidemia. Kallie is, however, at risk for progression of atherosclerotic heart disease from her radiation therapy in addition to the standard risk factors. Thank you for allowing me to assist with Kallie's care. [id number]/[facility] #: [id number] SHRAVAN
[2018-04-07] MEDS: Levothyroxine TAB* 75 MCG TAB PO SCH (05:05)
[2018-04-07] MEDS: Dofetilide CAP* 250 MCG PO SCH ×2 (08:33→21:32)
[2018-04-07] MEDS: Furosemide IV* 10 MG/ML 2 ML VIAL (20 MG) IV SCH (08:33)
[2018-04-07] MEDS: Famotidine TAB* 20 MG PO SCH (08:33)
[2018-04-07] MEDS: Rivaroxaban TAB(*) 20 MG TAB PO SCH (08:33)
[2018-04-07] MEDS: Metoprolol Tartrate TAB* 50 mg PO SCH ×3 (08:34→23:15)
--- NOTE | 2018-04-07 16:08 | PN ---
Subjective Date of Service: 04/07/18 Interval History: HOSPITALIST PROGRESS NOTE Patient seen and examined at bedside. She feels better today, but LE are still significantly edematous, despite diuresing almost 20lbs. Family History: Unchanged from Admission Social History: Unchanged from Admission Past Medical History: Unchanged from Admission Objective Active Medications: Acetaminophen (Tylenol Tab*) 650 mg PO Q6H PRN PRN Reason: FEVER/PAIN Albuterol (Ventolin Hfa Inhaler*) 2 puff INH Q6H PRN PRN Reason: SOB/WHEEZING Clonazepam (Klonopin Tab(*)) 1 mg PO BEDTIME [facility] Last Admin: 04/06/18 21:57 Dose: 1 mg Dofetilide (Tikosyn Cap*) 250 mcg PO BID [facility] Last Admin: 04/07/18 08:33 Dose: 250 mcg Famotidine (Pepcid Tab*) 20 mg PO DAILY [facility] Last Admin: 04/07/18 08:33 Dose: 20 mg Furosemide (Lasix Iv*) 20 mg IV DAILY [facility] Last Admin: 04/07/18 08:33 Dose: 20 mg Levothyroxine Sodium (Synthroid Tab*) 75 mcg PO 0600 [facility] Last Admin: 04/07/18 05:05 Dose: 75 mcg Metoprolol Tartrate (Lopressor Tab*) 50 mg PO BID [facility] Last Admin: 04/07/18 08:34 Dose: Not Given Rivaroxaban (Xarelto(*)) 20 mg PO DAILY [facility] Last Admin: 04/07/18 08:33 Dose: 20 mg Vital Signs - 8 hr 04/07/18 04/07/18 04/07/18 08:28 08:44 08:56 Temperature 98.0 F Pulse Rate 82 82 Respiratory 16 16 24 Rate Blood Pressure 104/74 98/58 (mmHg) O2 Sat by Pulse 98 97 Oximetry 04/07/18 04/07/18 12:00 15:15 Temperature 98.2 F 97.7 F Pulse Rate 76 84 Respiratory 18 20 Rate Blood Pressure 106/70 83/55 (mmHg) O2 Sat by Pulse 99 96 Oximetry Oxygen Devices in Use Now: None Appearance: Pleasant lady sitting up in bed in NAD Eyes: No Scleral Icterus Ears/Nose/Mouth/Throat: Mucous Membranes Moist Neck: Trachea Midline Respiratory: Symmetrical Chest Expansion and Respiratory Effort, Clear to Auscultation Cardiovascular: RRR - Normal S1 and S2, +SM Extremities: - - Bilateral LE pitting edema, MEHREEN wrapped Neurological: Alert and Oriented x 3, NL Muscle Strength and Tone Result Diagrams: 04/03/18 06:53 04/06/18 08:06 Assess/Plan/Problems-Billing Assessment: Mrs. Traylor is a 62yo F with history of lymphoma, radiation tx, chronic right pleural effusion and chronic LUE lymphedema that presents to ER with CHF. - Patient Problems (1) CHF (congestive heart failure) Comment: - Acute diastolic CHF exacerbation/ right sided heart failure. - Echo showed EF 45-50%. - Weight is down to 163lbs, from 182lbs on admission, but she seems to have gained >20lbs prior to admission. - Continue IV Furosemide, MEHREEN wrap, and leg elevation. - Continue Metoprolol. - No ACEI/ARB for now due to low BP - may be added as outpatient. - UA negative for proteinuria. - CT chest did not show findings compatible with constrictive pericarditis only paramediastinal fibrotic changes. Left pleural effusion secondary to CHF exacerbation most likely. Would not pursue thoracentesis at this point, but may need it in the future if it persists after signifcant diuresis. - Suspect right heart failure is secondary to COPD. (2) Breast mass Comment: - CT chest showed incidental finding of a 1.6cm left breast mass. Patient never had a mammogram before - will need it as outpatient. (3) Atrial fibrillation Comment: - On Tikosyn and Metoprolol - in NSR with LBBB (chronic). - Continue Xarelto. (4) Hypothyroid Comment: - TSH 4.7. - Continue Levothyroxine. (5) History of Hodgkin's lymphoma Comment: - Stable, with chronic R loculated pleural effusion, residual R hand neuropathy and left arm lymphedema. (6) DVT prophylaxis Comment: - Continue Xarelto. (7) Full code status Status and Disposition: Inpatient
[2018-04-07] MEDS ORDERED: Magnesium Sulfate 2 GM IV* 2 GM/50 ML BAG IV ONE (16:17)
[2018-04-07] MEDS: clonazePAM TAB(*) 1 MG PO SCH (21:32)
[2018-04-07] MEDS ORDERED: Metoprolol Tartrate TAB* 25 MG PO ONE (23:00)
[2018-04-08] MEDS: Levothyroxine TAB* 75 MCG TAB PO SCH (05:47)
[2018-04-08] MEDS: Metoprolol Tartrate TAB* 50 mg PO SCH ×2 (10:16→20:31)
[2018-04-08] MEDS: Famotidine TAB* 20 MG PO SCH (10:16)
[2018-04-08] MEDS: Rivaroxaban TAB(*) 20 MG TAB PO SCH (10:16)
[2018-04-08] MEDS: Dofetilide CAP* 250 MCG PO SCH ×2 (10:17→20:31)
[2018-04-08] MEDS: Furosemide IV* 10 MG/ML VIAL (40 MG) IV SCH (10:45)
--- NOTE | 2018-04-08 13:43 | PN ---
Subjective Date of Service: 04/08/18 Interval History: HOSPITALIST PROGRESS NOTE Patient seen and examined at bedside. She offers no new complaints today. Drinking a lot of fluids to stay hydrated. Family History: Unchanged from Admission Social History: Unchanged from Admission Past Medical History: Unchanged from Admission Objective Active Medications: Acetaminophen (Tylenol Tab*) 650 mg PO Q6H PRN PRN Reason: FEVER/PAIN Albuterol (Ventolin Hfa Inhaler*) 2 puff INH Q6H PRN PRN Reason: SOB/WHEEZING Clonazepam (Klonopin Tab(*)) 1 mg PO BEDTIME [facility] Last Admin: 04/07/18 21:32 Dose: 1 mg Dofetilide (Tikosyn Cap*) 250 mcg PO BID [facility] Last Admin: 04/08/18 10:17 Dose: 250 mcg Famotidine (Pepcid Tab*) 20 mg PO DAILY [facility] Last Admin: 04/08/18 10:16 Dose: 20 mg Furosemide (Lasix Iv*) 40 mg IV DAILY [facility] Last Admin: 04/08/18 10:45 Dose: 40 mg Levothyroxine Sodium (Synthroid Tab*) 75 mcg PO 0600 [facility] Last Admin: 04/08/18 05:47 Dose: 75 mcg Metoprolol Tartrate (Lopressor Tab*) 50 mg PO BID [facility] Last Admin: 04/08/18 10:16 Dose: 50 mg Rivaroxaban (Xarelto(*)) 20 mg PO DAILY [facility] Last Admin: 04/08/18 10:16 Dose: 20 mg Vital Signs - 8 hr 04/08/18 07:19 Temperature 97.8 F Pulse Rate 82 Respiratory 16 Rate Blood Pressure 112/56 (mmHg) O2 Sat by Pulse 94 Oximetry Oxygen Devices in Use Now: None Appearance: Pleasant lady sitting up in bed in NAD. Eyes: No Scleral Icterus Ears/Nose/Mouth/Throat: Mucous Membranes Moist Neck: Trachea Midline Respiratory: Symmetrical Chest Expansion and Respiratory Effort, - - BS+ bilaterally with right base crackles Cardiovascular: RRR - Normal S1 and S2 Extremities: - - Bilateral LE pitting edema Neurological: Alert and Oriented x 3, NL Muscle Strength and Tone Result Diagrams: 04/03/18 06:53 04/06/18 08:06 Assess/Plan/Problems-Billing Assessment: Mrs. Traylor is a 62yo F with history of lymphoma, radiation tx, chronic right pleural effusion and chronic LUE lymphedema that presents to ER with CHF. - Patient Problems (1) CHF (congestive heart failure) Comment: - Acute diastolic CHF exacerbation/ right sided heart failure. - Echo showed EF 45-50%. - Weight went up today, suspect secondary to drinking a lot of fluids, as her UO was >3000ml. D/w patient - will start fluid restriction 1.5 liters. - Continue IV Furosemide, MEHREEN wrap, and leg elevation. - Continue Metoprolol. - No ACEI/ARB for now due to low BP - may be added as outpatient. - UA negative for proteinuria. - CT chest did not show findings compatible with constrictive pericarditis only paramediastinal fibrotic changes. Left pleural effusion secondary to CHF exacerbation most likely. Would not pursue thoracentesis at this point, but may need it in the future if it persists after signifcant diuresis. - Suspect right heart failure is secondary to COPD. (2) Breast mass Comment: - CT chest showed incidental finding of a 1.6cm left breast mass. Patient never had a mammogram before - will need it as outpatient. (3) Atrial fibrillation Comment: - On Tikosyn and Metoprolol - in NSR with LBBB (chronic). - Continue Xarelto. (4) Hypothyroid Comment: - TSH 4.7. - Continue Levothyroxine. (5) History of Hodgkin's lymphoma Comment: - Stable, with chronic R loculated pleural effusion, residual R hand neuropathy and left arm lymphedema. (6) DVT prophylaxis Comment: - Continue Xarelto. (7) Full code status Status and Disposition: Inpatient
[2018-04-08] MEDS: clonazePAM TAB(*) 1 MG PO SCH (20:30)
[2018-04-09] MEDS: Levothyroxine TAB* 75 MCG TAB PO SCH (06:03)
[2018-04-09 06:51] LABS: ABS Basophils 0.1 10^3/ul (0-0.2); ABS Eosinophils 0.1 10^3/ul (0-0.6); ABS Lymphocytes 0.7 10^3/ul (1.0-4.8); ABS Monocytes 0.7 10^3/ul (0-0.8); ABS Neutrophils 3.2 10^3/ul (1.5-7.7); ABS Nucleated RBC 0 10^3/ul; Eosinophil % 1.7 % (0-6); Hematocrit 41 % (35-47); Hemoglobin 13.3 g/dl (12.0-16.0); Lymphocyte % 14.7 % (25-47); Mean Corpuscular HGB Conc 33 g/dl (31-36); Mean Corpuscular Hemoglobin 29 pg (27-31); Mean Corpuscular Volume 90 fL (80-97); Mean Platelet Volume 7.8 um3 (7.4-10.4); Nucleated Red Blood Cells % 0.1; Platelet Count 371 10^3/ul (150-450); Red Blood Count 4.56 10^6/ul (4.00-5.40); Red Cell Distribution Width 16 % (10.5-15); White Blood Count 4.7 10^3/ul (3.5-10.8)
[2018-04-09 07:05] LABS: EGFR Non-African American 99.7 (>60)
[2018-04-09] MEDS: Furosemide IV* 10 MG/ML VIAL (40 MG) IV SCH (09:22)
[2018-04-09] MEDS: Famotidine TAB* 20 MG PO SCH (09:23)
[2018-04-09] MEDS: Metoprolol Tartrate TAB* 50 mg PO SCH ×2 (09:23→20:48)
[2018-04-09] MEDS: Rivaroxaban TAB(*) 20 MG TAB PO SCH (09:23)
[2018-04-09] MEDS: Dofetilide CAP* 250 MCG PO SCH ×2 (09:23→20:48)
[2018-04-09] MEDS ORDERED: Docusate CAP* 100 MG PO PRN (09:30)
[2018-04-09] MEDS: Polyethylene Glycol 3350* 17 GM PACKET PO SCH ×2 (09:49→20:50)
--- NOTE | 2018-04-09 14:33 | PN ---
Subjective Date of Service: 04/09/18 Interval History: HOSPITALIST PROGRESS NOTE Patient seen and examined at bedside. Care reviewed and d/w Royal Wolff RN. She feels better today. Edema continues to improve, but weight is trending up. Compliant with fluid restriction. Family History: Unchanged from Admission Social History: Unchanged from Admission Past Medical History: Unchanged from Admission Objective Active Medications: Acetaminophen (Tylenol Tab*) 650 mg PO Q6H PRN PRN Reason: FEVER/PAIN Albuterol (Ventolin Hfa Inhaler*) 2 puff INH Q6H PRN PRN Reason: SOB/WHEEZING Clonazepam (Klonopin Tab(*)) 1 mg PO BEDTIME [facility] Last Admin: 04/08/18 20:30 Dose: 1 mg Docusate Sodium (Colace Cap*) 100 mg PO BID PRN PRN Reason: CONSTIPATION Dofetilide (Tikosyn Cap*) 250 mcg PO BID [facility] Last Admin: 04/09/18 09:23 Dose: 250 mcg Famotidine (Pepcid Tab*) 20 mg PO DAILY [facility] Last Admin: 04/09/18 09:23 Dose: 20 mg Furosemide (Lasix Iv*) 40 mg IV DAILY [facility] Last Admin: 04/09/18 09:22 Dose: 40 mg Levothyroxine Sodium (Synthroid Tab*) 75 mcg PO 0600 [facility] Last Admin: 04/09/18 06:03 Dose: 75 mcg Metoprolol Tartrate (Lopressor Tab*) 50 mg PO BID [facility] Last Admin: 04/09/18 09:23 Dose: 50 mg Polyethylene Glycol/Electrolytes (Miralax*) 17 gm PO 0800,2100 [facility] Last Admin: 04/09/18 09:49 Dose: Not Given Rivaroxaban (Xarelto(*)) 20 mg PO DAILY [facility] Last Admin: 04/09/18 09:23 Dose: 20 mg Vital Signs - 8 hr 04/09/18 04/09/18 07:33 08:00 Temperature 97.9 F Pulse Rate 81 Respiratory 18 18 Rate Blood Pressure 103/56 (mmHg) O2 Sat by Pulse 99 Oximetry Oxygen Devices in Use Now: None Appearance: Pleasant lady sitting up in bed in NAD. Eyes: No Scleral Icterus Ears/Nose/Mouth/Throat: Mucous Membranes Moist Neck: Trachea Midline Respiratory: Symmetrical Chest Expansion and Respiratory Effort, - - BS+ bilaterally with right base crackles Cardiovascular: - - Normal S1 and S2, irregularly irregular Extremities: - - Bilateral LE edema, improved, now up to her knees Neurological: Alert and Oriented x 3, NL Muscle Strength and Tone Result Diagrams: 04/09/18 06:15 04/09/18 06:15 Assess/Plan/Problems-Billing Assessment: Mrs. Traylor is a 62yo F with history of lymphoma, radiation tx, chronic right pleural effusion and chronic LUE lymphedema that presents to ER with CHF. - Patient Problems (1) CHF (congestive heart failure) Comment: - Acute diastolic CHF exacerbation/ right sided heart failure. - Echo showed EF 45-50%. - Weight went up again today, despite fluid restriction and negative fluid balance - will recheck weight on a different balance. - Continue IV Furosemide, MEHREEN wrap, and leg elevation. - Continue Metoprolol. - No ACEI/ARB for now due to low BP - may be added as outpatient. - UA negative for proteinuria. - CT chest did not show findings compatible with constrictive pericarditis only paramediastinal fibrotic changes. Left pleural effusion secondary to CHF exacerbation most likely. Would not pursue thoracentesis at this point, but may need it in the future if it persists after signifcant diuresis. - Suspect right heart failure is secondary to COPD. (2) Breast mass Comment: - CT chest showed incidental finding of a 1.6cm left breast mass. Patient never had a mammogram before - will need it as outpatient. (3) Atrial fibrillation Comment: - On Tikosyn and Metoprolol - in NSR with LBBB (chronic). - Continue Xarelto. (4) Hypothyroid Comment: - TSH 4.7. - Continue Levothyroxine. (5) History of Hodgkin's lymphoma Comment: - Stable, with chronic R loculated pleural effusion, residual R hand neuropathy and left arm lymphedema. (6) DVT prophylaxis Comment: - Continue Xarelto. (7) Full code status Status and Disposition: Inpatient
[2018-04-09] MEDS: clonazePAM TAB(*) 1 MG PO SCH (20:48)
[2018-04-10] MEDS: Levothyroxine TAB* 75 MCG TAB PO SCH (06:20)
[2018-04-10 08:25] VITALS: BP 98/61
[2018-04-10] MEDS: Polyethylene Glycol 3350* 17 GM PACKET PO SCH (09:03)
[2018-04-10] MEDS: Furosemide IV* 10 MG/ML VIAL (40 MG) IV SCH (09:29)
[2018-04-10] MEDS: Metoprolol Tartrate TAB* 50 mg PO SCH (09:30)
[2018-04-10] MEDS: Rivaroxaban TAB(*) 20 MG TAB PO SCH (09:30)
[2018-04-10] MEDS: Dofetilide CAP* 250 MCG PO SCH (09:30)
[2018-04-10] MEDS: Famotidine TAB* 20 MG PO SCH (09:30)
--- NOTE | 2018-04-12 01:39 | DS ---
CC: Dr. Chirinos; Dr. Rsoe * DISCHARGE SUMMARY: DATE OF ADMISSION: 04/01/18 DATE OF DISCHARGE: 04/10/18 PRIMARY CARE PROVIDER: Philip Chirinos MD ADULT LITERACY TEACHER: Milena Rose MD DISCHARGE DIAGNOSES: 1. [id number] diastolic congestive heart failure, with predominance of right- sided heart failure. 2. Anasarca. 3. Incidental finding of left breast mass. SECONDARY DIAGNOSES: 1. Paroxysmal atrial flutter/fibrillation. 2. Single vessel coronary artery disease. 3. Chronic obstructive pulmonary disease. 4. Pulmonary hypertension. 5. History of Hodgkin's lymphoma in 1987 with recurrence in 1980. 6. Hypothyroidism. 7. Left upper extremity lymphedema. 8. 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 9. Status post splenectomy and appendectomy. 10. Status post right VATS. MEDICATIONS: 1. Vitamin D 1 capsule p.o. daily. 2. CoQ10 of 100 mg p.o. daily. 3. Cholecalciferol 400 units p.o. daily. 4. Vitamin C 1000 mg p.o. daily. 5. Albuterol HFA 2 puffs inhaled q.6 hours p.r.n. shortness of breath/wheezing. 6. Calcium plus magnesium plus vitamin D two tablets p.o. b.i.d. 7. Ranitidine 150 mg p.o. daily. 8. Probiotic 1 capsule p.o. b.i.d. 9. Resveratrol 100 mg p.o. at bedtime. 10. Fish oil 1 capsule p.o. daily. 11. Xarelto 10 mg p.o. daily. 12. Klonopin 1 mg p.o. at bedtime. 13. Metoprolol tartrate 50 mg p.o. b.i.d. 14. Levothyroxine 75 mcg p.o. daily. 15. Tikosyn 250 mcg p.o. b.i.d. 16. Clotrimazole cream topical b.i.d. 17. Tylenol 650 mg p.o. q.6 hours p.r.n. pain or fever. Medication change: 1. Furosemide was changed to 20 mg p.o. on Mondays, Wednesdays, and Fridays. HOSPITAL COURSE: Mrs. 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 Since November, the patient has had progressive lower extremity edema that did not seem to be responding to p.o. furosemide. The patient was under the impression that she had gained 20 pounds. For more details about her presentation I referred to her history and physical. The patient had a chest x-ray that showed increased pleural fluid bilaterally. She was admitted to the telemetry floor and she had transthoracic echocardiogram that revealed ejection fraction of 45% to 50% with mild AR, mild , mild to moderate MR, mild pulmonary hypertension and when compared to her echo from November 2017, the LV function was slightly lower. The patient was started on IV furosemide and impression was that her anasarca was secondary to CHF. She had no proteinuria and her albumin was 3.1. The patient was seen in consultation by Cardiology (Dr. Rose) and impression was that the patient was 62-year-old lady admitted with shortness of breath, increased lower extremity edema, weight gain with very marked edema 3+ up to her thighs. As her edema seemed to be somewhat refractory, cardiology consultation was requested. Dr. Rose checked her serial echos over the years and the patient has been prone to an increase in her left ventricular end diastolic pressure and has had intermittent pulmonary hypertension with the pressures as high as 65. She felt this was secondary to pulmonary hypertension , fluid overload related to a stiff ventricle and valvular heart disease that could very likely be secondary to her prior history of radiation therapy, although COPD from prior smoking could have an impact as well. She was in agreement with aggressive IV diuresis. Since her right heart failure is more profound than left and there is evidence of chronic pulmonary issues, Dr. Rose felt that overnight oximetry would be beneficial to see if the patient would benefit from supplemental oxygen at night and this can be pursued as outpatient. The patient also noted to be noncompliant with the low salt diet and she received extensive education regarding this topic. The patient was admitted with 182 pounds and on the day of discharge, she was down to 148 pounds with significant improvement of her lower extremity edema. The patient had a CT of the chest with contrast looking for any pericardial changes that could suggest constrictive pericarditis. The CT do not show pericardial changes, only loculated pleural effusion on the right similar to the appearance in 2014 CT and a small to moderate pleural effusion on the left. She has paramediastinal fibrotic changes likely related to radiation treatment , right atrial and ventricular enlargement. Of note, there was an incidental finding of 1.6 cm enhancing mass of the left breast. The patient states she never had a mammogram, but she will need further workup of this breast mass as outpatient. The patient had significant improvement of her symptoms and she was thought to be medically stable for discharge at this time. PHYSICAL EXAMINATION: Vital Signs: Temperature 97.3, heart rate is 78, respiratory rate 16, oxygen saturation 99% on room air, blood pressure is 102/ 48. General: The patient is a pleasant lady, sitting up on bed, in no acute distress. CVS: Normal S1 and S2, irregularly irregular. Chest: Breath sounds bilaterally with crackles on the right base. Extremities: There is mild lower extremity edema. Neuro: She is alert, awake, and oriented x3. Able to move all 4 extremities. DIET: Heart healthy diet. ACTIVITY: As tolerated. DISPOSITION: To home. STATUS WHILE IN THE HOSPITAL: Inpatient. The patient was advised to check her weight daily and if she gained more than 2 pounds, she will contact Dr. Rose's office to adjust her diuretic dose. She also received a referal for visiting nurse services to assist with management of her congestive heart failure. Please keep in mind that this is a summarized version of this patient's hospital stay. If you need more information, please feel free to call me at or please obtain the full medical records. TIME SPENT: Approximately 45 minutes were spent to complete this discharge. [id number]/[facility] #: [id number] [facility]
== END 2018-04-10 18:15 | disposition home or self-care (01) | DRG 194 ==
LOC: ED 17:27 → MED 23:54 → UNDODISIN 04-09 14:50
PROVIDERS: ADMIT Hospitalist; ATTEND Internal Medicine
DX: I11.0 Hypertensive heart disease with heart failure (principal); I48.92 Unspecified atrial flutter; I50.33 Acute on chronic diastolic (congestive) heart failure; R60.1 Generalized edema; I48.0 Paroxysmal atrial fibrillation; I25.10 Atherosclerotic heart disease of native coronary artery without angina pectoris; J44.9 Chronic obstructive pulmonary disease, unspecified; I27.20 Pulmonary hypertension, unspecified; E03.9 Hypothyroidism, unspecified; G56.82 Other specified mononeuropathies of left upper limb; I44.7 Left bundle-branch block, unspecified; N63.20 Unspecified lump in the left breast, unspecified quadrant; I08.3 Combined rheumatic disorders of mitral, aortic and tricuspid valves; Z85.71 Personal history of Hodgkin lymphoma; Z88.1 Allergy status to other antibiotic agents; Z88.0 Allergy status to penicillin; Z88.8 Allergy status to other drugs, medicaments and biological substances; Z80.0 Family history of malignant neoplasm of digestive organs; Z87.891 Personal history of nicotine dependence
CPT/HCPCS: 36415; 71046; 71260; 80048; 80053; 81003; 83605; 83735; 83880; 84443; 84484; 85025; 85027; 93005; 93306; 93308; 96374; 99284; A9270-GY; C8929; J1940; J3475; Q9967

== ENCOUNTER 2018-05-08 17:55 | Inpatient (IN) | payer OTHER ==
--- OUTSIDE RECORDS SUMMARY | 2018-05-08 18:33 | XMS REPORT ---
:1955 External Reference #:[id number] Author Organization [employer] Address [address] [place] [address] [place] [address] Phone [phone] Care Team Providers Name Role Phone Philip Chirinos MD Primary Care Physician Unavailable Payers Type Date Identification Numbers Payment Provider Subscriber Commercial Effective: Policy Number: [id number] [employer] Kallie Patel 2009 Medicaid PayID: [id number] [place] [id number] Problems Date Description Provider Status Onset: 05/09/2013 Atrial flutter Milena Rose M.D. Active Onset: 05/09/2013 Mitral valve disorder Milena Rose M.D. Active Onset: 10/23/2013 Atrial fibrillation Milena Rose M.D. Active Onset: 10/23/2013 Electrocardiogram abnormal Milena Rose M.D. Active Onset: 08/26/2015 Left bundle branch block Milena Rose M.D. Active Onset: 05/05/2016 Paroxysmal atrial fibrillation Milena Rose M.D. Active Onset: 05/04/2017 Coronary artery atheroma Milena Rose M.D. 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 Torso twist 2 reps, leg press , back extension 3 reps of 15 . Arm exercise 6 reps. abdominal crutches, chest exercise. 2 x week, not since 11/2017 but will start again General Hx Text Do you follow up a special diet: No Do you have problems snoring , day time fatigue: No snoring, fatigue due to having to manage medication at a certain times of the day sometimes Allergies, Adverse Reactions, Alerts Date Description Reaction Status Severity Comments 04/26/2012 Penicillin active Moderate to Severe 04/26/2012 Mold active Moderate to Severe 04/26/2012 Dust active 04/03/2013 Dronedarone active 04/03/2013 Levofloxacin active 05/09/2013 Multaq active 05/09/2013 Levaquin active 05/16/2013 Sotalol active diarrhea, SOB, fatigue, anorexia, leg swelling and more Medications Medication Date Status Form Strength Qnty SIG Indications Ordering Provider Dofetilide 05/03/ Active Capsules 125mcg 60caps 1 tab by Ten 2018 mouth twice D. Brand, a day M.D. Xarelto / Active Tablets 20mg 30tabs 1 po qd Breiman, 0000 MD Philip Nystatin / Active Cream [id number] 15g topically Breiman, 0000 /GM bid prn MD Philip Klonopin / Active 1mg 1 tab po qd Unknown 0000 at bedtime Levothyroxine / Active Tablets 75mcg 1 po qd Unknown Sodium 0000 Manoj-Mag / Active Soft Gel 2 soft gel Unknown 0000 caps po twice daily Vitamin C / Active Capsules 1000mg 1 po qd Unknown 0000 Vitamin / Active Tablets 30tabs 1 po qd Unknown B-Complex 0000 Resveratrol / Active Cap 1 cap po qd Unknown 0000 pm Co Q 10 / Active Capsules 100mg 1 po qd Unknown 0000 Vitamin D3 / Active Capsules 400Unit 1 cap po Unknown 0000 daily Acidophilus/Bif / Active Capsule 100mg 1 capsules Unknown idus 0000 by mouth twice daily Ranitidine HCL / Active Tablets 150mg 180tab 1 po qd Unknown 0000 s Herbal Defense / Active once daily Unknown Complex 0000 during winter time Slippery Elm / Active 400mg 2 po qd PM Unknown 0000 Sycamore 3-6-9 / Active Capsules 1200mg 1 cap po Unknown 0000 once daily Furosemide / Active Tablets 20mg 1 by mouth Unknown 0000 every day Metoprolol 00/00/ Active Tablets 50mg 1 by mouth Unknown Tartrate 0000 twice a day Ventolin HFA / Active Aerosol 108(90Base 2 puffs by Unknown 0000 ) mcg/Act mouth four times a day as needed Atenolol 01/17/ Hx Tablets 50mg 180tab 1 tablet by I34.0 Milena 2017 - s mouth bid Greenbush, M.D. 2017 Sotalol HCL 05/09/ Hx Tablets 80mg 30tabs 1/2 tab by 427.32 Milena (AF) 2012 - mouth twice Greenbush, a day M.D. 2012 Clindamycin HCL / Hx Capsules 300mg 4caps 1 tabs PO Unknown 0000 - qd X 5 Day 2012 Amitriptyline / Hx Tablets 10mg 60tabs 1/4 tab po Unknown HCL 0000 - qhs 2014 Metoprolol / Hx Tablets 50mg 180tab 1 po bid I34.0 Unknown Tartrate 0000 - s 2017 Alive Womens / Hx Tablets 2 tab po qd Unknown 50+ 0000 - 2016 Sycamore Q Plus / Hx Unknown 0000 - 2013 Digoxin 00/ Hx Tablets 0.125mg 90tabs 1 po qd Unknown 0000 - 2012 Tikosyn / Hx Capsules 250mcg 180cap 1 tab by Milena 0000 - s mouth twice Greenbush, day M.D. 2017 Flax Seed Oil / Hx Capsules 1300mg 1 cap po Unknown 0000 - daily 2016 Prednisone 00/ Hx Tablets 20mg 1 tablet po Unknown 0000 - x4 day 2015 Doxycycline 00/ Hx Capsules 100mg Take 1 Unknown Monohydrate 0000 - Capsule By 08/ Mouth Two 2018 Times Daily For 10 Days Vital Signs Date Vital Result Comment 04/01/2018 Height 65.5 inches 5'5.50" Weight 175.25 lb Heart Rate 72 /min BP Systolic 106 mmHg right arm BP Diastolic 70 mmHg right arm BMI (Body Mass Index) 28.7 kg/m2 Ejection Fraction 50-55% Echocardiogram 11/26/2017 01/17/2018 Height 65.5 inches 5'5.50" Weight 162.00 lb with shoes Heart Rate 70 /min BP Systolic Sitting 120 mmHg Rue reg cuff BP Diastolic Sitting 60 mmHg Rue reg cuff BP Systolic Standing 120 mmHg Rue reg cuff BP Diastolic Standing 70 mmHg Rue reg cuff Respiratory Rate 16 /min BMI (Body Mass Index) 26.5 kg/m2 Ejection Fraction 50-55% date 11/26/17 ECHO 05/04/2017 Height 65.5 inches 5'5.50" Weight 174.00 lb with shoes Heart Rate 70 /min BP Systolic Sitting 100 mmHg Rue reg cuff BP Diastolic Sitting 70 mmHg Rue reg cuff BP Systolic Standing 120 mmHg RUe reg cuff BP Diastolic Standing 72 mmHg RUe reg cuff Respiratory Rate 17 /min BMI (Body Mass Index) 28.5 kg/m2 Ejection Fraction 55% date 07/11/14 ECHO 10/20/2016 Height 65.5 inches 5'5.50" Weight 176.00 lb w/shoes Heart Rate 74 /min BMI (Body Mass Index) 28.8 kg/m2 Ejection Fraction 55% Echo 07/11/14 05/05/2016 Height 65.5 inches 5'5.50" Weight 176.00 lb with shoes BP Systolic Sitting 110 mmHg Ra reg cuff BP Diastolic Sitting 80 mmHg Ra reg cuff BP Systolic Standing 104 mmHg Ra reg cuff BP Diastolic Standing 80 mmHg Ra reg cuff BMI (Body Mass Index) 28.8 kg/m2 Ejection Fraction 55% date 07/11/2014 ECHO 08/26/2015 Height 65.5 inches 5'5.50" Weight 182.00 lb without shoes BP Systolic Sitting 120 mmHg Ra reg cuff BP Diastolic Sitting 80 mmHg Ra reg cuff BMI (Body Mass Index) 29.8 kg/m2 12/31/2014 Height 65.5 inches 5'5.50" Weight 178.00 lb w/ shoes Heart Rate 90 /min BP Systolic Sitting 92 mmHg Ra lg cuff BP Diastolic Sitting 76 mmHg Ra lg cuff BP Systolic Standing 120 mmHg Ra BP Diastolic Standing 82 mmHg Ra BP Systolic Recheck 110 mmHg Ra reg cuff BP Diastolic Recheck 64 mmHg Ra reg cuff Respiratory Rate 18 /min BMI (Body Mass Index) 29.2 kg/m2 Ejection Fraction 55% date 07/11/14 ECHO 05/28/2014 Height 65.5 inches 5'5.50" Weight 175.00 lb with shoes Heart Rate 64 /min regular BP Systolic Sitting 120 mmHg right arm reg cuff BP Diastolic Sitting 86 mmHg right arm reg cuff BP Systolic Standing 116 mmHg right arm reg cuff BP Diastolic Standing 82 mmHg right arm reg cuff Respiratory Rate 18 /min BMI (Body Mass Index) 28.7 kg/m2 10/23/2013 Height 65.5 inches 5'5.50" Weight 167.00 lb without shoes Heart Rate 80 /min BP Systolic Sitting 118 mmHg Ra reg cuff BP Diastolic Sitting 84 mmHg Ra reg cuff BP Systolic Standing 120 mmHg Ra reg cuff BP Diastolic Standing 82 mmHg Ra reg cuff Respiratory Rate 17 /min BMI (Body Mass Index) 27.4 kg/m2 06/19/2013 Height 65.5 inches 5'5.50" Weight 160.00 lb without shoes Heart Rate 8278 /min sit and stand HR BP Systolic Sitting 132 mmHg R arm reg cuff BP Diastolic Sitting 90 mmHg R arm reg cuff BP Systolic Standing 130 mmHg R arm reg cuff BP Diastolic Standing 84 mmHg R arm reg cuff Respiratory Rate 17 /min BMI (Body Mass Index) 26.2 kg/m2 05/16/2013 Height 65.5 inches 5'5.50" Weight 174.00 lb up 1 lb Heart Rate 108 /min BP Systolic Sitting 122 mmHg Ra reg cuff BP Diastolic Sitting 88 mmHg Ra reg cuff BP Systolic Standing 118 mmHg Ra BP Diastolic Standing 84 mmHg Ra Respiratory Rate 16 /min BMI (Body Mass Index) 28.5 kg/m2 05/09/2013 Height 65.5 inches 5'5.50" Weight 173.00 lb Heart Rate 64 /min BP Systolic Sitting 132 mmHg Ra reg cuff BP Diastolic Sitting 70 mmHg Ra reg cuff BP Systolic Standing 126 mmHg Ra BP Diastolic Standing 80 mmHg Ra BMI (Body Mass Index) 28.3 kg/m2 Results Test Date Test Result H/L Range Note Basic Metabolic Panel 04/06/2013 Sodium 137 mmol/L 133-145 Potassium 4.6 mmol/L 3.5-5.0 Chloride 98 mmol/L Low 101-111 Co2 Carbon Dioxide 29.0 mmol/L 22-32 Anion Gap 10.0 mmol/L 2-11 Glucose 111 mg/dL High 70-100 Blood Urea Nitrogen 11 mg/dL 6-24 Creatinine 0.80 mg/dL 0.50-1.40 BUN/Creatinine Ratio 13.8 8-20 Calcium 8.9 mg/dL 8.1-9.9 Egfr Non- 74.2 >60 Egfr 95.4 >60 1 Laboratory test finding 04/06/2013 Digoxin 0.7 ng/mL 0.5-1.5 2 Acid Fast Culture 01/21/2012 M 3 <SEE NOTE> Acid Fast Culture 01/21/2012 M 4 <SEE NOTE> Acid Fast Culture 01/21/2012 M 5 <SEE NOTE> MRSA/Vre Screen 12/09/2010 MRSA/Vre Culture [facility] 6 MRSA/Vre Screen 11/08/2010 MRSA/Vre Culture [facility] 7 Cytology Non-Loss Prevention Investigator 11/07/2010 Cytology Non Loss Prevention Investigator 8 <SEE NOTE> Cytology Non-Loss Prevention Investigator 12/27/2009 Cytology Non Loss Prevention Investigator 9 <SEE NOTE> Pleural Fluid Cell 12/27/2009 Pleural Fluid CLOUDY,RED Count Appearance Pleural Fluid Volume 3.0 Pleural Fluid WBC 2300 Pleural Fluid RBC 13614 Pleural Fluid Polys 7 Pleural Fluid Lymph 86 Pleural Fluid [place] 1 Pleural Fluid Non Hemo 6 Pleural Fluid Comments (SEE NOTE) 10 Body Fluid Cult Sens 12/27/2009 Body Fluid Cult NG4 11 Sens Body Fluid C&S 12/27/2009 Body Fluid Smear NO ORGANISMS SEE <SEE 12 NOTE> 1 Because ethnic data is not always readily [...] 15-29 5 Kidney failure <15 (or dialysis) 2 Levels at the lower end of the range may be needed for symptomatic heart failure and levels at the higher end of the range for rate control. 3 RUN DATE: 02/23/12 [facility] NMI LIVE PAGE 1 RUN TIME: 936 Specimen Inquiry RUN USER: INTERFACE Name: KALLIE PATEL Status: DIS IN Re01/18/12 Age/Sex: 56/F Unit#: [id number] Location: [facility] : 57 SPEC #: [id number] ZAYNAB: 01/21/12 STATUS: RES REQ #: [id number] RECD: 01/21/[address]: Ferrer MD,Lucy Davis SOURCE: BODY FLUID ENTR: 01/21/12 [facility] DR: Lang TORRE, Whitney Wooten SPDESC: PLEURAL FL Sera TORRE,Daisha ORDERED: ACID FAST CULT Procedure Result Verified Site > ACID FAST CULTURE Preliminary 02/23/12- 936 ML Culture, Mycobacterium No growth after 30 days Test performed by: [facility] [place], [place] [address] - [facility] Permit #[id number] [facility] [employer] [place] [address] DEPARTMENT OF PATHOLOGY, [facility] [employer] [place], [place] [address] [facility] Permit #[id number] Bucky Aguilar Marinescu,M.D. Environmental Educator 4 RUN DATE: 03/09/12 [facility] NMI LIVE PAGE 1 RUN TIME: 931 Specimen Inquiry RUN USER: INTERFACE Name: KALLIE PATEL Status: DIS IN Re01/18/12 Age/Sex: 56/F Unit#: [id number] Location: [facility] : 57 SPEC #: [id number] ZAYNAB: 01/21/12-1634 STATUS: RES REQ #: [id number] RECD: 01/21/[address]: Ferrer MD,Lucy Davis SOURCE: BODY FLUID ENTR: 01/21/[address]: Lang TORRE, Whitney Wooten SPDESC: PLEURAL FL Sera TORRE,Daisha ORDERED: ACID FAST CULT Procedure Result Verified Site > ACID FAST CULTURE Preliminary 03/09/12931 ML Culture, Mycobacterium No growth after 45 days Test performed by: [address] [address] ML - [facility] Permit #[id number] [address] [place] [address] DEPARTMENT OF PATHOLOGY, [address] [place] [address] [facility] Permit #[id number] Jaspreet Valverde M.D. Director Ankita Dias M.D. Environmental Educator 5 RUN DATE: 03/24/12 [facility] NMI LIVE PAGE 1 RUN TIME: 1211 Specimen Inquiry RUN USER: INTERFACE Name: KALLIE PATEL Status: DIS IN Re01/18/12 Age/Sex: 56/F Unit#: [id number] Location: [facility] : 57 SPEC #: [id number] ZAYNAB: 01/21/12 STATUS: AMMON REQ #: [id number] RECD: 01/21/[address] [facility] [address]: Ferrer MD,Lucy Davis SOURCE: BODY FLUID ENTR: 01/21/12 [facility] DR: Lang TORRE, Whitney Wooten [facility]: PLEURAL FL Sera TORRE,Daisha ORDERED: ACID FAST CULT Procedure Result Verified Site > ACID FAST CULTURE Final 03/24/12- 1211 ML Culture, Mycobacterium No growth after 60 days of incubation. Test performed by: [employer] [address] [place] [address] - [facility] Permit #[id number] [address] [place] [address] DEPARTMENT OF PATHOLOGY, [address] [place] [address] [facility] Permit #[id number] Bucky Aguilar M.D. Environmental Educator 6 NO MRSA ISOLATED 7 NO MRSA ISOLATED 8 --- RUN DATE: 11/12/10 [facility] NMI LIVE PAGE 1 RUN TIME: 1151 Specimen Inquiry RUN USER: INTERFACE -- Name: KALLIE PATEL Status: DIS IN Re11/08/10 Age/Sex: 55/F Unit#: [id number] [facility] -- Specimen: [id number] [id number] Spec [...] similar findings. Initial evaluation performed by Kd CHAU([facility]) 11/10/10 Final Interpretation electronically signed by: ANKITA DIAS 11/12/10 1151 -- DEPARTMENT OF PATHOLOGY, [address] [place] [address] [facility] Permit #[id number] Bucky Aguilar M.D. Assistant Dir ector -- 9 --- RUN DATE: 12/30/09 [facility] NMI LIVE PAGE 1 RUN TIME: 1338 Specimen Inquiry RUN USER: INTERFACE -- Name: KALLIE PATEL Accamanda#: [id number] Status: DIS IN Re12/26/09 Age/Sex: 54/F Unit#: [id number] Location: : 57 -- Specimen: [id number] SOUT Spec Date: 12/27/[address]: Philip Hopkins MD Spec Type: CYTOLOGY Received: 12/27/09-7740 Copies to: Daisha claire MD SOURCE BODY FLUID (SITE): Pleural PATIENT INFORMATION ACTUAL COLLECTION DATE: 12/27/09 PATIENT HISTORY: hodgkins lymphoma GROSS DESCRIPTION 30 mls of bloody,cloudy pleural fluid Specimen sent for Flow Cytometry on 12/27/09 to [facility] in [place], [place]. DIAGNOSIS Mesothelial cells, mature lymphocytes, macrophages, and blood. No evidence of non- Hodgkin or Hodgkin lymphoma. COMMENT Flow has been performed at [facility] in [place], [place]. The testing reveals: Patient Name: KALLIE PATEL Collection Date: 12/27/2009 Ordering Physician: Jaspreet Valverde M.D. Received Date: 12/28/2009 Treating Physician: Yunier Manzano Report Date: 12/30/2009 Ordering Facility: [facility] Ref #: [id number] Medical Record #: Not Given Specimen ID #: [id number] Date of ,Sex: 1955, N Flow Cytometry Immunophenotypic Report INTERPRETATION: PLEURAL FLUID, RIGHT LUNG: NO LYMPHOID MONOCLONALITY OR ABERRANT IMMUNOPHENOTYPIC EXPRESSION DETECTED. -- DEPARTMENT OF PATHOLOGY, [address] [place] [address] [facility] Permit #[id number] Bucky Aguilar M.D. Collection Officer ryan -- -- RUN DATE: 12/30/09 [facility] NMI LIVE PAGE 2 RUN TIME: 1338 Specimen Inquiry RUN USER: INTERFACE -- Name: KALLIE PATEL Accamanda#: [id number] Status: DIS IN Re12/26/09 Age/Sex: 54/F Unit#: [id number] Location: 4S : 57 -- -- CONTINUED -- COMMENT (Continued) Comments: Clinical and morphologic correlation is recommended. Submitted Dx: Evaluation for non-Hodgkin lymphoma Viability: 98% Flow Differential Population Analysis Lymphocytes: 97% B-cells: 18%, polyclonal/polytypic sIg light chain pattern T-cells: no aberrant expression of the markers tested CD4:CD8=6.5 NK-cells: 3% (not increased) [id number]-[id number] 3% events/ debris: No significant reactivity with the markers tested (contains rare non-hematolymphoid cells) Antibodies Performed: CD2, CD3, CD4, CD5, CD7, CD8, CD19, Laton, Lambda, CD20, CD23, FMC-7, CD11b, CD10, CD45, HLA-DR, CD38, CD56, CD30 (Original [facility] report available upon request by calling Pathology at [phone]). Initial evaluation performed by Rosetta STEWART([facility]) 12/30/09 Final Interpretation electronically signed by: ANKITA DIAS 12/30/09 1338 -- -- DEPARTMENT OF PATHOLOGY, [address] [place] [address] [facility] Permit #[id number] Jaspreet Valverde M.D. Director Ankita Dias M.D. Collection Officer Dir ryan -- 10 REVIEWED BY ANKITA DIAS MD NEGATIVE FOR MALIGNANT CELLS 11 FINAL: NO GROWTH DAY 4 12 NO ORGANISMS SEEN BY CYTOSPIN SMEAR FEW Procedures Date CPT Code Description Status 04/06/2018 82379 Echocardiogram, Limited Study Completed 04/04/2018 22097 ECHO Transthorasic Realtime 2D W Doppler & Color Flow Completed Hosp 04/01/2018 01773 EKG Tracing & Interpretation Completed 01/17/2018 42844 EKG Tracing & Interpretation Completed 11/26/2017 28408 ECHO Transthorasic Realtime 2D W Doppler & Color Flow Completed Hosp 05/04/2017 21326 EKG Tracing & Interpretation Completed 10/20/2016 16892 EKG Tracing & Interpretation Completed 05/05/2016 43486 EKG Tracing & Interpretation Completed 08/26/2015 80287 EKG Tracing & Interpretation Completed 12/31/2014 22254 EKG Tracing & Interpretation Completed 07/11/2014 93573 Echocardiogram, Limited Study Completed 05/28/2014 43964 EKG Tracing & Interpretation Completed 05/15/2014 30983 ECHO Transthoracic, Real-Time 2D With Doppler And Color Completed Flow 10/23/2013 71171 EKG Tracing & Interpretation Completed 06/19/2013 27345 EKG Tracing & Interpretation Completed 06/05/2013 25285 EKG, Interpretation Only Completed 06/05/2013 65815 Rhythm ECG With Interp Completed 06/04/2013 19632 EKG, Interpretation Only Completed 06/03/2013 00827 EKG, Interpretation Only Completed 06/02/2013 38302 EKG, Interpretation Only Completed 06/01/2013 88412 EKG, Interpretation Only Completed 05/16/2013 24770 EKG Tracing & Interpretation Completed 04/21/2013 12237 ECHO Transthoracic, Real-Time 2D With Doppler And Color Completed Flow 04/06/2013 70236 EKG, Interpretation Only Completed 04/03/2013 84625 EKG Tracing & Interpretation Completed 03/21/2013 09704 EKG, Interpretation Only Completed 03/19/2013 95568 EKG, Interpretation Only Completed 04/26/2012 06675 EKG Tracing & Interpretation Completed 01/28/2012 72251 EKG, Interpretation Only Completed 12/26/2009 10655 EKG, Interpretation Only Completed Encounters Type Date Location Provider CPT E/M Dx Office Visit 04/10/2018 [facility], Lucy Rowan, [address] I50.33 9:18a Hospitalists M.D. R60.0 N63.20 I44.7 Office Visit 04/09/2018 9:18a [facility], Lucy Harpal, 401[address] I50.33 Hospitalists M.D. R60.0 J44.9 N63.20 I48.0 I44.7 Office Visit 04/08/2018 9:17a [facility], Lucynatan Rowan, 26638 I50.33 Hospitalists M.D. J44.9 N63.20 I48.0 I44.7 Office Visit 04/07/2018 9:17a [facility], Lucy Rowan, 18631 I50.33 Hospitalists M.D. J44.1 N63.20 I48.0 I44.7 Office Visit 04/06/2018 3:37p [facility] Milena Rose M.D. 93774 I50.9 Copy Supervisor I27.20 J90 I48.0 I25.10 Z79.01 Office Visit 04/06/2018 9:17a [facility], Lucynatan Rowan, 21566 I50.33 Hospitalists M.D. R60.0 I48.0 I44.7 J90 Office Visit 04/05/2018 9:16a [facility], Lucy Rowan, 44964 I50.33 Hospitalists M.D. R60.0 I48.0 I44.7 J90 Z85.71 Office Visit 04/04/2018 9:16a [facility], Daisha Zamora, 80908 I50.9 Hospitalists M.DJudi R60.0 I48.0 I44.7 J90 Office Visit 04/03/2018 9:16a [facility], Daisha Zamora, 47[address] I50.9 Hospitalists M.DJudi R60.0 I89.0 I48.0 I44.7 J90 Office Visit 04/02/2018 9:16a [facility], Daisha Sera, [address]0712 I50.9 Hospitalists M.Je R60.0 I89.0 I48.0 I44.7 J90 Office Visit 04/01/2018 3:30p [facility] [place] [address] R60.9 J44.1 I25.10 I48.0 Office Visit 04/01/2018 9:15a [facility],pc Isi Srinivasan, 99011 I50.9 Hospitalists D.O. I48.0 I44.7 R60.0 I89.0 J90 Z87.891 Office Visit 01/17/2018 3:20p [facility] Rose M.D. 93517 I48.0 Copy Supervisor I44.7 I34.0 I25.10 J44.1 Office Visit 11/29/2017 10:40a [facility] Ran, 63153 R06.02 Assoc,pc Hospitalists [place] J44.1 I48.91 E03.9 Office Visit 11/28/2017 10:40a [facility] Ran, 65232 R06.02 Assoc,pc Hospitalists [place] J44.1 I48.91 E03.9 Office Visit 11/27/2017 10:39a [facility] [address] R06.02 Hospitalists VIVIAN Goff J44.1 I48.91 E03.9 Office Visit 11/26/2017 10:37a [facility] [address] R06.02 Assoc[facility]pc Hospitalists Bucky J44.1 I48.91 E03.9 Office Visit 05/04/2017 4:00p [facility] Xander Rose M.D. 57701 I48.0 Copy Supervisor I44.7 I25.10 E78.00 R73.9 Office Visit 10/20/2016 3:30p [facility] EULOGIO Fowler 01048 I48.0 I44.7 I34.0 Office Visit 05/05/2016 4:00p [facility] Rose M.D. 42046 I48.0 [facility] I44.7 I34.0 Office Visit 08/26/2015 3:45p [facility] M.D. 10840 I48.0 [facility] I34.0 I44.7 Office Visit 12/31/2014 3:30p [facility] EULOGIO Fowler 12548 427.31 424.0 244.9 397.0 424.1 Office Visit 05/28/2014 3:00p [facility] EULOGIO Fowler 37877 424.0 427.31 401.9 424.1 Office Visit 10/23/2013 3:15p [facility] Rose M.D. 44696 427.31 [facility] 427.32 794.31 424.0 Office Visit 06/19/2013 2:00p [facility] M.D. 34002 427.31 [facility] 427.32 401.0 Office Visit 06/05/2013 8:43a [facility] [place], 05737 427.32 Rhys Lawler Office Visit 06/04/2013 2:21p [facility] Antonino Miller, 50142 427.32 Rhys Lawler, FAC, [facility] Office Visit 06/03/2013 1:49p [facility] Antonino Miller, 52844 427.32 Rhys Lawler, FAC, [facility] Office Visit 06/02/2013 2:52p [facility] Milena Rose M.D. 44863 427.31 [facility] Office Visit 06/01/2013 1:36p [facility] Rose M.D. 07299 427.31 [facility] Office Visit 05/16/2013 3:30p [facility] Nurse Visit 59969 427.32 [facility] Office Visit 05/09/2013 3:45p [facility] Xander Rose M.D. 33225 427.32 Copy Supervisor 424.0 Office Visit 04/03/2013 11:15a [facility] Xander Rose M.D. 95718 427.32 [facility] 427.31 511.9 782.3 Office Visit 03/23/2013 5:35p [facility] [place], [address] 682.3 Assoc,pc Hospitalists M.DJudi 288.8 427.31 511.9 Office Visit 03/22/2013 5:35[place] [facility] [address] 682.3 Assoc,pc Hospitalists M.DJudi 427.31 244.9 288.8 Office Visit 03/21/2013 5:34[place] [facility] [place] [address] 682.3 Assoc,pc Hospitalists M.DJudi 427.31 244.9 288.8 Office Visit 03/20/2013 5:34[place] [facility] [place], [address] 682.3 Assoc,pc Hospitalists M.DJudi 427.31 244.9 288.8 Office Visit 03/19/2013 5:33p [facility] [place] [address] 682.3 Assoc,pc Hospitalists M.DJudi 427.31 244.9 288.8 Office Visit 03/18/2013 5:32p [facility] [place], [address] 682.3 Assoc,pc Hospitalists M.DJudi 427.31 244.9 288.8 Office Visit 04/26/2012 2:45p [facility] Rose M.D. 63236 427.31 [facility] Office Visit 12/27/2009 1:30a [facility] Uzair Hanks, 93639 244.9 Assoc,pc Hospitalists Bucky Office Visit 12/26/2009 1:15a [facility] Batool Dong M.D. 90860 511.9 [facility] Hospitalists Office Visit 12/25/2009 1:15a [facility] Daisha Zamora, 92462 511.9 [facility]oc[facility] Hospitalists Bucky Plan of Care Future Appointment(s):06/09/2018 3:00 pm - [facility] M.D. at [facility]04/01/2018 - Jennifer Phelps, NPR60.9 Edema, unspecifiedNew Orders:AvudzohbflzwqmW24.1 Chronic obstructive pulmonary disease w (acute) zzdgofkrdrybR21.10 Athscl heart disease of [place] coronary artery w/o ang paxecX60.0 Paroxysmal atrial fibrillation
--- OUTSIDE RECORDS SUMMARY | 2018-05-08 18:33 | XMS REPORT ---
:1955 External Reference #:[id number] Author Organization [facility] Address [address] [place] [address] [place] [address] Phone [phone] Care Team Providers Name Role Phone Philip Chirinos MD Primary Care Physician Unavailable Payers Type Date Identification Numbers Payment Provider Subscriber Commercial Effective: Policy Number: [id number] [employer] Kallie Patel 2009 Medicaid PayID: [id number] [place] [id number] Problems Date Description Provider Status Onset: 05/09/2013 [...] 0000 MD Philip Nystatin / Active Cream [id number] 15g topically Breiman, 0000 /GM bid prn [...] 400mg 2 po qd PM Unknown 0000 [place] 3-6-9 / Active Capsules 1200mg 1 cap [...] I34.0 Milena 2017 - s mouth bid Kingston, M.D. 2017 Sotalol HCL 05/09/ Hx Tablets 80mg 30tabs 1/2 tab by 427.32 Milena (AF) 2012 - mouth twice Kingston, a day M.D. 2012 Clindamycin HCL / [...] po qd Unknown 50+ 0000 - 2016 [place] Q Plus / Hx Unknown 0000 - 2013 Digoxin 00/ Hx Tablets 0.125mg 90tabs 1 po qd Unknown 0000 - 2012 Tikosyn / Hx Capsules 250mcg 180cap 1 tab by Milena 0000 - s mouth twice Kingston, day M.D. 2017 Flax Seed Oil / [...] Screen 11/08/2010 MRSA/Vre Culture NFICU 7 Cytology Non-Seasonal Package Handler 11/07/2010 Cytology Non Seasonal Package Handler 8 <SEE NOTE> Cytology Non-Seasonal Package Handler 12/27/2009 Cytology Non Seasonal Package Handler 9 <SEE NOTE> Pleural Fluid Cell 12/27/2009 Pleural Fluid CLOUDY,RED Count Appearance Pleural Fluid Volume 3.0 Pleural Fluid WBC 2300 Pleural Fluid RBC 11944 Pleural Fluid Polys 7 Pleural Fluid Lymph 86 Pleural Fluid Gratiot 1 Pleural Fluid Non Hemo 6 Pleural [...] for rate control. 3 RUN DATE: 02/23/12 [facility] NMI LIVE PAGE 1 RUN TIME: 936 Specimen Inquiry RUN USER: INTERFACE Name: KALLIE PATEL Status: DIS IN Re01/18/12 Age/Sex: 56/F Unit#: [id number] Location: [facility] : 57 SPEC #: [id number] ZAYNAB: 01/21/12 STATUS: RES REQ #: [id number] RECD: 01/21/[address]: Ferrer MD,Lucy Davis SOURCE: BODY FLUID ENTR: 01/21/[address] [facility] [address]: Lang TORRE, Whitney Wooten SPDESC: PLEURAL FL Sera TORRE,Daisha ORDERED: ACID FAST CULT Procedure Result Verified Site > ACID FAST CULTURE Preliminary 02/23/12- 936 ML Culture, Mycobacterium No growth after 30 days Test performed by: [facility] [employer] [place], [place] [address] - [facility] Permit #[id number] [facility] [employer] [place] [address] DEPARTMENT OF PATHOLOGY, [facility] [employer] [place], [place] [address] [facility] Permit #[id number] Bucky Aguilar Marinescu,M.D. Economics Faculty Member 4 RUN DATE: 03/09/12 [facility] NMI LIVE PAGE 1 RUN TIME: 931 Specimen Inquiry RUN USER: INTERFACE Name: KALLIE PATEL Status: DIS IN Re01/18/12 Age/Sex: 56/F Unit#: [id number] Location: [facility] : 57 SPEC #: [id number] ZAYNAB: 01/21/12-1634 STATUS: RES REQ #: [id number] RECD: 01/21/[address]: Ferrer MD,Lucy Davis SOURCE: BODY FLUID ENTR: 01/21/[address]: Lang TORRE, Whitney Wooten SPDESC: PLEURAL FL Sera TORRE,Daisha ORDERED: ACID FAST CULT Procedure Result Verified Site > ACID FAST CULTURE Preliminary 03/09/12931 ML Culture, Mycobacterium No growth after 45 days Test performed by: [address] [address] ML - [facility] Permit #[id number] [address] [place] [address] DEPARTMENT OF PATHOLOGY, [address] [place] [address] [facility] Permit #[id number] Jaspreet Valverde M.D. Director Ankita Dias M.D. Economics Faculty Member 5 RUN DATE: 03/24/12 [facility] NMI LIVE PAGE 1 RUN TIME: 1211 Specimen Inquiry RUN USER: INTERFACE Name: KALLIE PATEL Status: DIS IN Re01/18/12 Age/Sex: 56/F Unit#: [id number] Location: [facility] : 57 SPEC #: [id number] ZAYNAB: 01/21/12 STATUS: AMMON REQ #: [id number] RECD: 01/21/[address] [facility] [address]: Ferrer MD,Lucy Davis SOURCE: BODY FLUID ENTR: 01/21/[address] [facility] [address]: Lang TORRE, Whitney Wooten [facility]: PLEURAL FL Sera TORRE,Daisha ORDERED: ACID FAST CULT Procedure Result Verified Site > ACID FAST CULTURE Final 03/24/12- 1211 ML Culture, Mycobacterium No growth after 60 days of incubation. Test performed by: [employer] [address] [place] [address] - [facility] Permit #[id number] [address] [place] [address] DEPARTMENT OF PATHOLOGY, [address] [place] [address] [facility] Permit #[id number] Bucky Aguilar M.D. Economics Faculty Member 6 NO MRSA ISOLATED 7 NO MRSA ISOLATED 8 --- RUN DATE: 11/12/10 [facility] NMI LIVE PAGE 1 RUN TIME: 1151 Specimen Inquiry RUN USER: INTERFACE -- Name: KALLIE PATEL Status: DIS IN Re11/08/10 Age/Sex: 55/F Unit#: [id number] [facility] -- Specimen: [id number] SOUT [...] similar findings. Initial evaluation performed by Kd CHAU([facility]) 11/10/10 Final Interpretation electronically signed by: ANKITA DIAS 11/12/10 1151 -- DEPARTMENT OF PATHOLOGY, [address] [place] [address] [facility] Permit #[id number] Bucky Aguilar M.D. Assistant Dir ector -- 9 --- RUN DATE: 12/30/09 [facility] NMI LIVE PAGE 1 RUN TIME: 1338 Specimen Inquiry RUN USER: INTERFACE -- Name: KALLIE PATEL Accamanda#: [id number] Status: DIS IN Re12/26/09 Age/Sex: 54/F Unit#: [id number] Location: : 57 -- Specimen: [id number] SOUT Spec Date: 12/27/[address]: Philip Hopkins MD Spec Type: CYTOLOGY Received: 12/27/09-7179 Copies to: Daisha claire MD SOURCE BODY FLUID (SITE): Pleural PATIENT INFORMATION ACTUAL COLLECTION DATE: 12/27/09 PATIENT HISTORY: hodgkins lymphoma GROSS DESCRIPTION 30 mls of bloody,cloudy pleural fluid Specimen sent for Flow Cytometry on 12/27/09 to [facility] in [place], [place]. DIAGNOSIS Mesothelial cells, mature lymphocytes, macrophages, and blood. No evidence of non- Hodgkin or Hodgkin lymphoma. COMMENT Flow has been performed at [facility] in [place], [place]. The testing reveals: Patient Name: KALLIE PATEL Collection Date: 12/27/2009 Ordering Physician: Jaspreet Valverde M.D. Received Date: 12/28/2009 Treating Physician: Yunier Manzano Report Date: 12/30/2009 Ordering Facility: [facility] Ref #: [id number] Medical Record #: Not Given Specimen ID #: [id number] Date of ,Sex: 1955, N Flow Cytometry Immunophenotypic Report INTERPRETATION: PLEURAL FLUID, RIGHT LUNG: NO LYMPHOID MONOCLONALITY OR ABERRANT IMMUNOPHENOTYPIC EXPRESSION DETECTED. -- DEPARTMENT OF PATHOLOGY, [address] [place] [address] [facility] Permit #[id number] Bucky Aguilar M.D. Screen Examiner ryan -- -- RUN DATE: 12/30/09 [facility] NMI LIVE PAGE 2 RUN TIME: 1338 Specimen Inquiry RUN USER: INTERFACE -- Name: KALLIE PATEL Accamanda#: [id number] Status: DIS IN Re12/26/09 Age/Sex: 54/F Unit#: [id number] Location: 4S : 57 -- -- CONTINUED -- COMMENT (Continued) Comments: Clinical and morphologic correlation is recommended. Submitted Dx: Evaluation for non-Hodgkin lymphoma Viability: 98% Flow Differential Population Analysis Lymphocytes: 97% B-cells: 18%, polyclonal/polytypic sIg light chain pattern T-cells: no aberrant expression of the markers tested CD4:CD8=6.5 NK-cells: 3% (not increased) DH06-nofisufb 3% events/ debris: No significant reactivity with the markers tested (contains rare non-hematolymphoid cells) Antibodies Performed: CD2, CD3, CD4, CD5, CD7, CD8, CD19, [place], Lambda, CD20, CD23, FMC-7, CD11b, CD10, CD45, HLA-DR, CD38, CD56, CD30 (Original [facility] report available upon request by calling Pathology at [phone]). Initial evaluation performed by Rosetta STEWART([facility]) 12/30/09 Final Interpretation electronically signed by: ANKITA DIAS 12/30/09 1338 -- -- DEPARTMENT OF PATHOLOGY, [address] [place] [address] [facility] Permit #[id number] Jaspreet Valverde M.D. Director Ankita Dias M.D. Screen Examiner Dir ryan -- 10 REVIEWED BY ANKITA DIAS MD NEGATIVE FOR MALIGNANT CELLS 11 FINAL: NO GROWTH DAY 4 12 NO ORGANISMS SEEN BY CYTOSPIN SMEAR FEW Procedures Date CPT Code Description Status 04/06/2018 37441 Echocardiogram, Limited Study Completed 04/04/2018 40794 ECHO Transthorasic Realtime 2D W Doppler & Color Flow Completed Hosp 04/01/2018 53236 EKG Tracing & Interpretation Completed 01/17/2018 82206 EKG Tracing & Interpretation Completed 11/26/2017 72213 ECHO Transthorasic Realtime 2D W Doppler & Color Flow Completed Hosp 05/04/2017 90279 EKG Tracing & Interpretation Completed 10/20/2016 07808 EKG Tracing & Interpretation Completed 05/05/2016 54550 EKG Tracing & Interpretation Completed 08/26/2015 61595 EKG Tracing & Interpretation Completed 12/31/2014 79304 EKG Tracing & Interpretation Completed 07/11/2014 36726 Echocardiogram, Limited Study Completed 05/28/2014 57671 EKG Tracing & Interpretation Completed 05/15/2014 33144 ECHO Transthoracic, Real-Time 2D With Doppler And Color Completed Flow 10/23/2013 18371 EKG Tracing & Interpretation Completed 06/19/2013 63038 EKG Tracing & Interpretation Completed 06/05/2013 23564 EKG, Interpretation Only Completed 06/05/2013 65477 Rhythm ECG With Interp Completed 06/04/2013 79690 EKG, Interpretation Only Completed 06/03/2013 22363 EKG, Interpretation Only Completed 06/02/2013 03810 EKG, Interpretation Only Completed 06/01/2013 80283 EKG, Interpretation Only Completed 05/16/2013 10670 EKG Tracing & Interpretation Completed 04/21/2013 35498 ECHO Transthoracic, Real-Time 2D With Doppler And Color Completed Flow 04/06/2013 35666 EKG, Interpretation Only Completed 04/03/2013 89412 EKG Tracing & Interpretation Completed 03/21/2013 45266 EKG, Interpretation Only Completed 03/19/2013 90272 EKG, Interpretation Only Completed 04/26/2012 18335 EKG Tracing & Interpretation Completed 01/28/2012 94314 EKG, Interpretation Only Completed 12/26/2009 01867 EKG, Interpretation Only Completed Encounters Type Date Location Provider CPT E/M Dx Office Visit 05/03/2018 [facility] [place], 34452 I50.9 8:54a In Service Educator M.D. I48.0 I45.81 Office Visit 04/10/2018 9:18a [facility], Lucy Rowan, 99491 I50.33 Hospitalists M.D. R60.0 N63.20 I44.7 Office Visit 04/09/2018 9:18a [facility],pc Lucy Rowan, 90089 I50.33 Hospitalists M.D. R60.0 J44.9 N63.20 I48.0 I44.7 Office Visit 04/08/2018 9:17a [facility], Lucy Rowan, 25519 I50.33 Hospitalists M.D. J44.9 N63.20 I48.0 I44.7 Office Visit 04/07/2018 9:17a [facility], Lucy Rowan, 07549 I50.33 Hospitalists M.D. J44.1 N63.20 I48.0 I44.7 Office Visit 04/06/2018 3:37p [facility] Milena Rose M.D. 30461 I50.9 In Service Educator I27.20 J90 I48.0 I25.10 Z79.01 Office Visit 04/06/2018 9:17a [facility],pc Lucy Rowan, 96339 I50.33 Hospitalists M.D. R60.0 I48.0 I44.7 J90 Office Visit 04/05/2018 9:16a [facility],pc Lucy Rowan, 97344 I50.33 Hospitalists M.D. R60.0 I48.0 I44.7 J90 Z85.71 Office Visit 04/04/2018 9:16a [facility], Daisha Zamora, 10301 I50.9 Hospitalists M.DJudi R60.0 I48.0 I44.7 J90 Office Visit 04/03/2018 9:16a [facility], Daisha Zamora, 21997 I50.9 Hospitalists M.D. R60.0 I89.0 I48.0 I44.7 J90 Office Visit 04/02/2018 9:16a [facility], Daisha Zamora, 30601 I50.9 Hospitalists M.DJudi R60.0 I89.0 I48.0 I44.7 J90 Office Visit 04/01/2018 3:30p [facility] [place] [address] R60.9 J44.1 I25.10 I48.0 Office Visit 04/01/2018 9:15a [facility], Isi Mattson, 90919 I50.9 Hospitalists D.O. I48.0 I44.7 R60.0 I89.0 J90 Z87.891 Office Visit 01/17/2018 3:20p [facility] Milena Rose M.D. 34090 I48.0 In Service Educator I44.7 I34.0 I25.10 J44.1 Office Visit 11/29/2017 10:40a [facility] Ran, 83523 R06.02 Assoc,pc Hospitalists EULOGIO J44.1 I48.91 E03.9 Office Visit 11/28/2017 10:40a [facility] Ran, 59942 R06.02 Assoc,pc Hospitalists PA J44.1 I48.91 E03.9 Office Visit 11/27/2017 10:39a [facility], Debra [facility] 08771 R06.02 Hospitalists VIVIAN Goff J44.1 I48.91 E03.9 Office Visit 11/26/2017 10:37a [facility] [place], [address] R06.02 Assoc,pc Hospitalists Bucky J44.1 I48.91 E03.9 Office Visit 05/04/2017 4:00p [facility] Xander Rose M.D. 25015 I48.0 In Service Educator I44.7 I25.10 E78.00 R73.9 Office Visit 10/20/2016 3:30p [facility] EULOGIO Fowler 61792 I48.0 I44.7 I34.0 Office Visit 05/05/2016 4:00p [facility] Milena Rose M.D. 99768 I48.0 [facility] I44.7 I34.0 Office Visit 08/26/2015 3:45p [facility] Milena Rose M.D. 27601 I48.0 [facility] I34.0 I44.7 Office Visit 12/31/2014 3:30p [facility] EULOGIO Fowler 01230 427.31 424.0 244.9 397.0 424.1 Office Visit 05/28/2014 3:00p [facility] EULOGIO Fowler 15098 424.0 427.31 401.9 424.1 Office Visit 10/23/2013 3:15p [facility] Milena Rose M.D. 08425 427.31 [facility] 427.32 794.31 424.0 Office Visit 06/19/2013 2:00p [facility] Milena Rose M.D. 09027 427.31 [facility] 427.32 401.0 Office Visit 06/05/2013 8:43a [facility] [place], 21961 427.32 Rhys Lawler Office Visit 06/04/2013 2:21p [facility] Antonino Miller, 15920 427.32 Rhys Lawler, FAC, [facility] Office Visit 06/03/2013 1:49p [facility] Antonino Miller, 06808 427.32 Rhys Lawler, FAC, [facility] Office Visit 06/02/2013 2:52p [facility] Milena Rose M.D. 25430 427.31 [facility] Office Visit 06/01/2013 1:36p [facility] Milena Rose M.D. 54911 427.31 [facility] Office Visit 05/16/2013 3:30p [facility] Nurse Visit 41277 427.32 [facility] Office Visit 05/09/2013 3:45p [facility] Milena Rose M.D. 30159 427.32 [facility] 424.0 Office Visit 04/03/2013 11:15a [facility] Milena Rose M.D. 41802 427.32 [facility] 427.31 511.9 782.3 Office Visit 03/23/2013 5:35p [facility] [place], [address] 682.3 Assoc,pc Hospitalists MClay 288.8 427.31 511.9 Office Visit 03/22/2013 5:35p [facility] [place], [address] 682.3 Assoc,pc Hospitalists MClay 427.31 244.9 288.8 Office Visit 03/21/2013 5:[place] [address] 682.3 Assoc,pc Hospitalists MClay 427.31 244.9 288.8 Office Visit 03/20/2013 5:34[place] [address] 682.3 Assoc,pc Hospitalists MClay 427.31 244.9 288.8 Office Visit 03/19/2013 5:33p [facility] [place], [address] 682.3 Assoc,pc Hospitalists MClay 427.31 244.9 288.8 Office Visit 03/18/2013 5:32[place] [address] 682.3 Assoc,pc Hospitalists MClay 427.31 244.9 288.8 Office Visit 04/26/2012 2:45p [facility] Milena Rose M.D. 52180 427.31 [facility] Office Visit 12/27/2009 1:30a [facility] Uzair Hanks, 80794 244.9 Assoc,pc Hospitalists Bucky Office Visit 12/26/2009 1:15a [facility] Batool Dong M.D. 06704 511.9 Assoc,pc Hospitalists Office Visit 12/25/2009 1:15a [facility] Diasha Zamora, 57383 511.9 Assoc,pc Hospitalists Bucky Plan of Care Future Appointment(s):06/09/2018 3:00 pm - Milena [facility] M.D. at [facility]04/01/2018 - Jennifer Phelps, NPR60.9 Edema, unspecifiedNew Orders:GuokefaaylohwtI73.1 Chronic obstructive pulmonary disease w (acute) jdtgptptmncaA89.10 Athscl heart disease of [place] coronary artery w/o ang pocfaI52.0 Paroxysmal atrial fibrillation
--- OUTSIDE RECORDS SUMMARY | 2018-05-08 18:33 | XMS REPORT ---
:1955 External Reference #:[id number] Author Organization [facility] Address [address] [place] [address] [place] [address] Phone [phone] Care Team Providers Name Role Phone Philip Chirinos MD Primary Care Physician Unavailable Payers Type Date Identification Numbers Payment Provider Subscriber Commercial Effective: Policy Number: [id number] [employer] Kallie Patel 2009 Medicaid PayID: [id number] [place] [id number] Problems Date Description Provider Status Onset: 05/09/2013 [...] 0000 MD Philip Nystatin / Active Cream [id number] 15g topically Breiman, 0000 /GM bid prn [...] 400mg 2 po qd PM Unknown 0000 [place] 3-6-9 / Active Capsules 1200mg 1 cap [...] I34.0 Milena 2017 - s mouth bid Standard, M.D. 2017 Sotalol HCL 05/09/ Hx Tablets 80mg 30tabs 1/2 tab by 427.32 Milena (AF) 2012 - mouth twice Standard, a day M.D. 2012 Clindamycin HCL / [...] po qd Unknown 50+ 0000 - 2016 [place] Q Plus / Hx Unknown 0000 - 2013 Digoxin 00/ Hx Tablets 0.125mg 90tabs 1 po qd Unknown 0000 - 2012 Tikosyn / Hx Capsules 250mcg 180cap 1 tab by Milena 0000 - s mouth twice Standard, day M.D. 2017 Flax Seed Oil / [...] Screen 11/08/2010 MRSA/Vre Culture NFICU 7 Cytology Non-Senior Benefits Analyst 11/07/2010 Cytology Non Senior Benefits Analyst 8 <SEE NOTE> Cytology Non-Senior Benefits Analyst 12/27/2009 Cytology Non Senior Benefits Analyst 9 <SEE NOTE> Pleural Fluid Cell 12/27/2009 Pleural Fluid CLOUDY,RED Count Appearance Pleural Fluid Volume 3.0 Pleural Fluid WBC 2300 Pleural Fluid RBC 70[address] Pleural Fluid Polys 7 Pleural Fluid Lymph 86 Pleural Fluid Assumption 1 Pleural Fluid Non Hemo 6 Pleural [...] for rate control. 3 RUN DATE: 02/23/12 [facility] NMI LIVE PAGE 1 RUN TIME: 936 Specimen Inquiry RUN USER: INTERFACE Name: KALLIE PATEL Status: DIS IN Re01/18/12 Age/Sex: 56/F Unit#: [id number] Location: [facility] : 57 SPEC #: [id number] ZAYNAB: 01/21/12 STATUS: RES REQ #: [id number] RECD: 01/21/[address]: Ferrer MD,Lucy Davis SOURCE: BODY FLUID ENTR: 01/21/12 [facility] DR: Lang TORRE, Whitney Wooten SPDESC: PLEURAL FL Sera TORRE,Daisha ORDERED: ACID FAST CULT Procedure Result Verified Site > ACID FAST CULTURE Preliminary 02/23/12- 936 ML Culture, Mycobacterium No growth after 30 days Test performed by: [employer] [facility] [employer] [place], [place] [address] - [facility] Permit #[id number] [facility] [employer] [place] [address] DEPARTMENT OF PATHOLOGY, [facility] [employer] [place], [place] [address] [facility] Permit #[id number] Bucky Aguilar Marinescu,M.D. Field Project Manager 4 RUN DATE: 03/09/12 [facility] NMI LIVE PAGE 1 RUN TIME: 931 Specimen Inquiry RUN USER: INTERFACE Name: KALLIE PATEL Status: DIS IN Re01/18/12 Age/Sex: 56/F Unit#: [id number] Location: [facility] : 57 SPEC #: [id number] ZAYNAB: 01/21/12-1634 STATUS: RES REQ #: [id number] RECD: 01/21/[address]: Ferrer MD,Lucy Davis SOURCE: BODY FLUID ENTR: 01/21/[address]: Lang TORRE, Whitney Wooten SPDESC: PLEURAL FL Sera TORRE,Daisha ORDERED: ACID FAST CULT Procedure Result Verified Site > ACID FAST CULTURE Preliminary 03/09/12931 ML Culture, Mycobacterium No growth after 45 days Test performed by: [address] [address] ML - [facility] Permit #[id number] [address] [place] [address] DEPARTMENT OF PATHOLOGY, [address] [place] [address] [facility] Permit #[id number] Jaspreet Valverde M.D. Director Ankita Dias M.D. Field Project Manager 5 RUN DATE: 03/24/12 [facility] NMI LIVE PAGE 1 RUN TIME: 1211 Specimen Inquiry RUN USER: INTERFACE Name: KALLIE PATEL Status: DIS IN Re01/18/12 Age/Sex: 56/F Unit#: [id number] Location: [facility] : 57 SPEC #: [id number] ZAYNAB: 01/21/12 STATUS: AMMON REQ #: [id number] RECD: 01/21/[address] [facility] [address]: Ferrer MD,Lucy Davis SOURCE: BODY FLUID ENTR: 01/21/12 [facility] DR: Lang TORRE, Whitney Wooten [facility]: PLEURAL FL Sera TORRE,Daisha ORDERED: ACID FAST CULT Procedure Result Verified Site > ACID FAST CULTURE Final 03/24/12- 1211 ML Culture, Mycobacterium No growth after 60 days of incubation. Test performed by: [employer] [address] [place] [address] - [facility] Permit #[id number] [address] [place] [address] DEPARTMENT OF PATHOLOGY, [address] [place] [address] [facility] Permit #[id number] Bucky Aguilar M.D. Field Project Manager 6 NO MRSA ISOLATED 7 NO MRSA ISOLATED 8 --- RUN DATE: 11/12/10 [facility] NMI LIVE PAGE 1 RUN TIME: 1151 Specimen Inquiry RUN USER: INTERFACE -- Name: KALLIE PATEL Status: DIS IN Re11/08/10 Age/Sex: 55/F Unit#: [id number] [facility] -- Specimen: [id number] SOUT [...] similar findings. Initial evaluation performed by Kd CHAU([facility]) 11/10/10 Final Interpretation electronically signed by: ANKITA DIAS 11/12/10 1151 -- DEPARTMENT OF PATHOLOGY, [address] [place] [address] [facility] Permit #[id number] Bucky Aguilar M.D. Assistant Dir ector -- 9 --- RUN DATE: 12/30/09 [facility] NMI LIVE PAGE 1 RUN TIME: 1338 Specimen Inquiry RUN USER: INTERFACE -- Name: KALLIE PATEL Accamanda#: [id number] Status: DIS IN Re12/26/09 Age/Sex: 54/F Unit#: [id number] Location: : 57 -- Specimen: [id number] SOUT Spec Date: 12/27/[address]: Philip Hopkins MD Spec Type: CYTOLOGY Received: 12/27/09-0240 Copies to: Daisha claire MD SOURCE BODY FLUID (SITE): Pleural PATIENT INFORMATION ACTUAL COLLECTION DATE: 12/27/09 PATIENT HISTORY: hodgkins lymphoma GROSS DESCRIPTION 30 mls of bloody,cloudy pleural fluid Specimen sent for Flow Cytometry on 12/27/09 to [facility] in [place], [place]. DIAGNOSIS Mesothelial cells, mature lymphocytes, macrophages, and blood. No evidence of non- Hodgkin or Hodgkin lymphoma. COMMENT Flow has been performed at [facility] in [place], [place]. The testing reveals: Patient Name: KALLIE PATEL Collection Date: 12/27/2009 Ordering Physician: Jaspreet Valverde M.D. Received Date: 12/28/2009 Treating Physician: Yunier Manzano Report Date: 12/30/2009 Ordering Facility: [facility] Ref #: [id number] Medical Record #: Not Given Specimen ID #: [id number] Date of ,Sex: 1955, N Flow Cytometry Immunophenotypic Report INTERPRETATION: PLEURAL FLUID, RIGHT LUNG: NO LYMPHOID MONOCLONALITY OR ABERRANT IMMUNOPHENOTYPIC EXPRESSION DETECTED. -- DEPARTMENT OF PATHOLOGY, [address] [place] [address] [facility] Permit #[id number] Bucky Aguilar M.D. Loss Prevention Supervisor ryan -- -- RUN DATE: 12/30/09 [facility] NMI LIVE PAGE 2 RUN TIME: 1338 Specimen Inquiry RUN USER: INTERFACE -- Name: KALLIE PATEL Accamanda#: [id number] Status: DIS IN Re12/26/09 Age/Sex: 54/F Unit#: [id number] Location: 4S : 57 -- -- CONTINUED -- COMMENT (Continued) Comments: Clinical and morphologic correlation is recommended. Submitted Dx: Evaluation for non-Hodgkin lymphoma Viability: 98% Flow Differential Population Analysis Lymphocytes: 97% B-cells: 18%, polyclonal/polytypic sIg light chain pattern T-cells: no aberrant expression of the markers tested CD4:CD8=6.5 NK-cells: 3% (not increased) PD18-ngvjhdrt 3% events/ debris: No significant reactivity with the markers tested (contains rare non-hematolymphoid cells) Antibodies Performed: CD2, CD3, CD4, CD5, CD7, CD8, CD19, Doffing, Lambda, CD20, CD23, FMC-7, CD11b, CD10, CD45, HLA-DR, CD38, CD56, CD30 (Original [facility] report available upon request by calling Pathology at [phone]). Initial evaluation performed by Rosetta STEWART([facility]) 12/30/09 Final Interpretation electronically signed by: ANKITA DIAS 12/30/09 1338 -- -- DEPARTMENT OF PATHOLOGY, [address] [place] [address] [facility] Permit #[id number] Jaspreet Valverde M.D. Director Ankita Dias M.D. Loss Prevention Supervisor Dir ryan -- 10 REVIEWED BY ANKITA DIAS MD NEGATIVE FOR MALIGNANT CELLS 11 FINAL: NO GROWTH DAY 4 12 NO ORGANISMS SEEN BY CYTOSPIN SMEAR FEW Procedures Date CPT Code Description Status 04/06/2018 97843 Echocardiogram, Limited Study Completed 04/04/2018 74691 ECHO Transthorasic Realtime 2D W Doppler & Color Flow Completed Hosp 04/01/2018 50649 EKG Tracing & Interpretation Completed 01/17/2018 66716 EKG Tracing & Interpretation Completed 11/26/2017 89457 ECHO Transthorasic Realtime 2D W Doppler & Color Flow Completed Hosp 05/04/2017 03358 EKG Tracing & Interpretation Completed 10/20/2016 81864 EKG Tracing & Interpretation Completed 05/05/2016 57434 EKG Tracing & Interpretation Completed 08/26/2015 78532 EKG Tracing & Interpretation Completed 12/31/2014 93707 EKG Tracing & Interpretation Completed 07/11/2014 22085 Echocardiogram, Limited Study Completed 05/28/2014 42254 EKG Tracing & Interpretation Completed 05/15/2014 63235 ECHO Transthoracic, Real-Time 2D With Doppler And Color Completed Flow 10/23/2013 39015 EKG Tracing & Interpretation Completed 06/19/2013 38075 EKG Tracing & Interpretation Completed 06/05/2013 25345 EKG, Interpretation Only Completed 06/05/2013 51659 Rhythm ECG With Interp Completed 06/04/2013 51768 EKG, Interpretation Only Completed 06/03/2013 16836 EKG, Interpretation Only Completed 06/02/2013 80516 EKG, Interpretation Only Completed 06/01/2013 13337 EKG, Interpretation Only Completed 05/16/2013 01686 EKG Tracing & Interpretation Completed 04/21/2013 35610 ECHO Transthoracic, Real-Time 2D With Doppler And Color Completed Flow 04/06/2013 17602 EKG, Interpretation Only Completed 04/03/2013 20877 EKG Tracing & Interpretation Completed 03/21/2013 39734 EKG, Interpretation Only Completed 03/19/2013 14144 EKG, Interpretation Only Completed 04/26/2012 29980 EKG Tracing & Interpretation Completed 01/28/2012 87152 EKG, Interpretation Only Completed 12/26/2009 38849 EKG, Interpretation Only Completed Encounters Type Date Location Provider CPT E/M Dx Office Visit 05/03/2018 [facility] [place], 76504 I50.9 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 I48.0 I45.81 Office Visit 04/10/2018 9:18a [facility], Lucy Rowan, 05522 I50.33 Hospitalists M.D. R60.0 N63.20 I44.7 Office Visit 04/09/2018 9:18a [facility],pc Lucy Rowan, 73179 I50.33 Hospitalists M.D. R60.0 J44.9 N63.20 I48.0 I44.7 Office Visit 04/08/2018 9:17a [facility], Lucy Rowan, 08102 I50.33 Hospitalists M.D. J44.9 N63.20 I48.0 I44.7 Office Visit 04/07/2018 9:17a [facility], Lucy Rowan, 27598 I50.33 Hospitalists M.D. J44.1 N63.20 I48.0 I44.7 Office Visit 04/06/2018 3:37p [facility] Milena Rose M.D. 46974 I50.9 Wool Washing Machine Operator I27.20 J90 I48.0 I25.10 Z79.01 Office Visit 04/06/2018 9:17a [facility],pc Lucy Rowan, 27369 I50.33 Hospitalists M.D. R60.0 I48.0 I44.7 J90 Office Visit 04/05/2018 9:16a [facility],pc Lucy Rowan, 14206 I50.33 Hospitalists M.D. R60.0 I48.0 I44.7 J90 Z85.71 Office Visit 04/04/2018 9:16a [facility], Daisha Zamora, 82592 I50.9 Hospitalists M.DJudi R60.0 I48.0 I44.7 J90 Office Visit 04/03/2018 9:16a [facility], Daisha Zamora, 58736 I50.9 Hospitalists M.D. R60.0 I89.0 I48.0 I44.7 J90 Office Visit 04/02/2018 9:16a [facility], Daisha Zamora, 89274 I50.9 Hospitalists M.DJudi R60.0 I89.0 I48.0 I44.7 J90 Office Visit 04/01/2018 3:30p [facility] [place] [address] R60.9 J44.1 I25.10 I48.0 Office Visit 04/01/2018 9:15a [facility], Isi Mattson, 87551 I50.9 Hospitalists D.O. I48.0 I44.7 R60.0 I89.0 J90 Z87.891 Office Visit 01/17/2018 3:20p [facility] Milena Rose M.D. 42109 I48.0 Wool Washing Machine Operator I44.7 I34.0 I25.10 J44.1 Office Visit 11/29/2017 10:40a [facility] Ran, 40429 R06.02 Assoc,pc Hospitalists EULOGIO J44.1 I48.91 E03.9 Office Visit 11/28/2017 10:40a [facility] Ran, 08174 R06.02 Assoc,pc Hospitalists PA J44.1 I48.91 E03.9 Office Visit 11/27/2017 10:39a [facility], Debra [facility] 15019 R06.02 Hospitalists VIVIAN Goff J44.1 I48.91 E03.9 Office Visit 11/26/2017 10:37a [facility] [place], [address] R06.02 Assoc,pc Hospitalists Bucky J44.1 I48.91 E03.9 Office Visit 05/04/2017 4:00p [facility] Xander Rose M.D. 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 44132 I48.0 [facility] I44.7 I34.0 Office Visit 08/26/2015 3:45p [facility] Milena Rose M.D. 78835 I48.0 [facility] I34.0 I44.7 Office Visit 12/31/2014 3:30p [facility] EULOGIO Fowler 81027 427.31 424.0 244.9 397.0 424.1 Office Visit 05/28/2014 3:00p [facility] EULOGIO Fowler 35159 424.0 427.31 401.9 424.1 Office Visit 10/23/2013 3:15p [facility] Milena Rose M.D. 40965 427.31 [facility] 427.32 794.31 424.0 Office Visit 06/19/2013 2:00p [facility] Milena Rose M.D. 23447 427.31 [facility] 427.32 401.0 Office Visit 06/05/2013 8:43a [facility] [place], 97307 427.32 Rhys Lawler Office Visit 06/04/2013 2:21p [facility] Antonino Miller, 26091 427.32 Rhys Lawler, FAC, [facility] Office Visit 06/03/2013 1:49p [facility] Antonino Miller, 55688 427.32 Rhys Lawler, FAC, [facility] Office Visit 06/02/2013 2:52p [facility] Milena Rose M.D. 28474 427.31 [facility] Office Visit 06/01/2013 1:36p [facility] Milena Rose M.D. 98483 427.31 [facility] Office Visit 05/16/2013 3:30p [facility] Nurse Visit 22118 427.32 [facility] Office Visit 05/09/2013 3:45p [facility] Milena Rose M.D. 49669 427.32 [facility] 424.0 Office Visit 04/03/2013 11:15a [facility] Milena Rose M.D. 46477 427.32 [facility] 427.31 511.9 782.3 Office Visit 03/23/2013 5:35p [facility] [place], [address] 682.3 Assoc,pc Hospitalists MClay 288.8 427.31 511.9 Office Visit 03/22/2013 5:35p [facility] [place], [address] 682.3 Assoc,pc Hospitalists MClay 427.31 244.9 288.8 Office Visit 03/21/2013 5:34p [facility] [place] [address] 682.3 Assoc,pc Hospitalists MClay 427.31 244.9 288.8 Office Visit 03/20/2013 5:34p [facility] [place] [address] 682.3 Assoc,pc Hospitalists MClay 427.31 244.9 288.8 Office Visit 03/19/2013 5:33p [place], [address] 682.3 Assoc,pc Hospitalists MClay 427.31 244.9 288.8 Office Visit 03/18/2013 5:32p [facility] [place] [address] 682.3 Assoc,pc Hospitalists MClay 427.31 244.9 288.8 Office Visit 04/26/2012 2:45p [facility] Milena Rose M.D. 36483 427.31 [facility] Office Visit 12/27/2009 1:30a [facility] Uzair Hanks, 43673 244.9 Assoc,pc Hospitalists Bucky Office Visit 12/26/2009 1:15a [facility] Batool Dong M.D. 28875 511.9 Assoc,pc Hospitalists Office Visit 12/25/2009 1:15a [facility] Daisha Zamora, 17722 511.9 Assoc,pc Hospitalists Bucky Plan of Care Future Appointment(s):06/09/2018 3:00 pm - Milena Rose M.D. 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
--- OUTSIDE RECORDS SUMMARY | 2018-05-08 18:34 | XMS REPORT ---
:1955 External Reference #:[id number] Author Organization [facility] Address [address] [place] [address] [place] [address] Phone [phone] Care Team Providers Name Role Phone Philip Chirinos MD Primary Care Physician Unavailable Payers Type Date Identification Numbers Payment Provider Subscriber Commercial Effective: Policy Number: [id number] [employer] Kallie Patel 2009 Medicaid PayID: [id number] [place] [id number] Problems Date Description Provider Status Onset: 05/09/2013 [...] 0000 MD Philip Nystatin / Active Cream [id number] 15g topically Breiman, 0000 /GM bid prn [...] 400mg 2 po qd PM Unknown 0000 Fairchance 3-6-9 / Active Capsules 1200mg 1 cap [...] Tablets 50mg 180tab 1 tablet by I34.0 iMlena 2017 - s mouth bid Kellerton, M.D. 2017 Sotalol HCL 05/09/ Hx Tablets 80mg 30tabs 1/2 tab by 427.32 Milena (AF) 2012 - mouth twice Kellerton, a day M.D. 2012 Clindamycin HCL / [...] po qd Unknown 50+ 0000 - 2016 Fairchance Q Plus / Hx Unknown 0000 - 2013 Digoxin 00/ Hx Tablets 0.125mg 90tabs 1 po qd Unknown 0000 - 2012 Tikosyn / Hx Capsules 250mcg 180cap 1 tab by Milena 0000 - s mouth twice Kellerton, day M.D. 2017 Flax Seed Oil / [...] Screen 11/08/2010 MRSA/Vre Culture NFICU 7 Cytology Non-Paper Cone Machine Operator 11/07/2010 Cytology Non Paper Cone Machine Operator 8 <SEE NOTE> Cytology Non-Paper Cone Machine Operator 12/27/2009 Cytology Non Paper Cone Machine Operator 9 <SEE NOTE> Pleural Fluid Cell 12/27/2009 Pleural Fluid CLOUDY,RED Count Appearance Pleural Fluid Volume 3.0 Pleural Fluid WBC 2300 Pleural Fluid RBC 52657 Pleural Fluid Polys 7 Pleural Fluid Lymph 86 Pleural Fluid Somervell 1 Pleural Fluid Non Hemo 6 Pleural [...] for rate control. 3 RUN DATE: 02/23/12 [facility] NMI LIVE PAGE 1 RUN TIME: 936 Specimen Inquiry RUN USER: INTERFACE Name: KALLIE PATEL Status: DIS IN Re01/18/12 Age/Sex: 56/F Unit#: [id number] Location: [facility] : 57 SPEC #: [id number] ZAYNAB: 01/21/12 STATUS: RES REQ #: [id number] RECD: 01/21/[address]: Ferrer MD,Lucy Davis SOURCE: BODY FLUID ENTR: 01/21/[address] [facility] [address]: Lang TORRE, Whitney Wooten SPDESC: PLEURAL FL Sera TORRE,Daisha ORDERED: ACID FAST CULT Procedure Result Verified Site > ACID FAST CULTURE Preliminary 02/23/12- 936 ML Culture, Mycobacterium No growth after 30 days Test performed by: [place] [employer] [facility] [employer] [place], [place] [address] - [facility] Permit #[id number] [facility] [employer] [place] [address] DEPARTMENT OF PATHOLOGY, [facility] [employer] [place], [place] [address] [facility] Permit #[id number] Bucky Aguilar Marinescu,M.D. Ratings Analyst 4 RUN DATE: 03/09/12 [facility] NMI LIVE PAGE 1 RUN TIME: 931 Specimen Inquiry RUN USER: INTERFACE Name: KALLIE PATEL Status: DIS IN Re01/18/12 Age/Sex: 56/F Unit#: [id number] Location: [facility] : 57 SPEC #: [id number] ZAYNAB: 01/21/12-1634 STATUS: RES REQ #: [id number] RECD: 01/21/[address]: Ferrer MD,Lucy Davis SOURCE: BODY FLUID ENTR: 01/21/[address]: Lang TORRE, Whitney Wooten SPDESC: PLEURAL FL Sera TORRE,Daisha ORDERED: ACID FAST CULT Procedure Result Verified Site > ACID FAST CULTURE Preliminary 03/09/12931 ML Culture, Mycobacterium No growth after 45 days Test performed by: [address] [address] ML - [facility] State Permit #[id number] [address] [place] [address] DEPARTMENT OF PATHOLOGY, [address] [place] [address] [facility] Permit #[id number] Jaspreet Valverde M.D. Director Ankita Dias M.D. Ratings Analyst 5 RUN DATE: 03/24/12 [facility] NMI LIVE PAGE 1 RUN TIME: 1211 Specimen Inquiry RUN USER: INTERFACE Name: KALLIE PATEL Status: DIS IN Re01/18/12 Age/Sex: 56/F Unit#: [id number] Location: [facility] : 57 SPEC #: [id number] ZAYNAB: 01/21/12 STATUS: AMMON REQ #: [id number] RECD: 01/21/[address] [facility] [address]: Ferrer MD,Lucy Davis SOURCE: BODY FLUID ENTR: 01/21/[address] [facility] [address]: Lang TORRE, Whitney Wooten [facility]: PLEURAL FL Sera TORRE,Daisha ORDERED: ACID FAST CULT Procedure Result Verified Site > ACID FAST CULTURE Final 03/24/12- 1211 ML Culture, Mycobacterium No growth after 60 days of incubation. Test performed by: [employer] [address] [place] [address] - [facility] State Permit #[id number] [address] [place] [address] DEPARTMENT OF PATHOLOGY, [address] [place] [address] [facility] Permit #[id number] Bucky Aguilar M.D. Ratings Analyst 6 NO MRSA ISOLATED 7 NO MRSA ISOLATED 8 --- RUN DATE: 11/12/10 [facility] NMI LIVE PAGE 1 RUN TIME: 1151 Specimen Inquiry RUN USER: INTERFACE -- Name: KALLIE PATEL Status: DIS IN Re11/08/10 Age/Sex: 55/F Unit#: [id number] [facility] -- Specimen: [id number] SOUT Spec [...] similar findings. Initial evaluation performed by Kd CHAU([facility]) 11/10/10 Final Interpretation electronically signed by: ANKITA DIAS 11/12/10 1151 -- DEPARTMENT OF PATHOLOGY, [address] [place] [address] [facility] Permit #[id number] Bucky Aguilar M.D. Assistant Dir ector -- 9 --- RUN DATE: 12/30/09 [facility] NMI LIVE PAGE 1 RUN TIME: 1338 Specimen Inquiry RUN USER: INTERFACE -- Name: KALLIE PATEL Accamanda#: [id number] Status: DIS IN Re12/26/09 Age/Sex: 54/F Unit#: [id number] Location: : 57 -- Specimen: [id number] SOUT Spec Date: 12/27/[address]: Philip Hopkins MD Spec Type: CYTOLOGY Received: 12/27/09-1449 Copies to: Daisha claire MD SOURCE BODY FLUID (SITE): Pleural PATIENT INFORMATION ACTUAL COLLECTION DATE: 12/27/09 PATIENT HISTORY: hodgkins lymphoma GROSS DESCRIPTION 30 mls of bloody,cloudy pleural fluid Specimen sent for Flow Cytometry on 12/27/09 to [facility] in [place], [place]. DIAGNOSIS Mesothelial cells, mature lymphocytes, macrophages, and blood. No evidence of non- Hodgkin or Hodgkin lymphoma. COMMENT Flow has been performed at [facility] in [place], [place]. The testing reveals: Patient Name: KALLIE PATEL Collection Date: 12/27/2009 Ordering Physician: Jaspreet Valverde M.D. Received Date: 12/28/2009 Treating Physician: Yunier Manzano Report Date: 12/30/2009 Ordering Facility: [facility] Ref #: [id number] Medical Record #: Not Given Specimen ID #: [id number] Date of ,Sex: 1955, N Flow Cytometry Immunophenotypic Report INTERPRETATION: PLEURAL FLUID, RIGHT LUNG: NO LYMPHOID MONOCLONALITY OR ABERRANT IMMUNOPHENOTYPIC EXPRESSION DETECTED. -- DEPARTMENT OF PATHOLOGY, [address] [place] [address] [facility] Permit #[id number] Bucky Aguilar M.D. Human Resource Intern ryan -- -- RUN DATE: 12/30/09 [facility] NMI LIVE PAGE 2 RUN TIME: 1338 Specimen Inquiry RUN USER: INTERFACE -- Name: KALLIE PATEL Accamanda#: [id number] Status: DIS IN Re12/26/09 Age/Sex: 54/F Unit#: [id number] Location: 4S : 57 -- -- CONTINUED -- COMMENT (Continued) Comments: Clinical and morphologic correlation is recommended. Submitted Dx: Evaluation for non-Hodgkin lymphoma Viability: 98% Flow Differential Population Analysis Lymphocytes: 97% B-cells: 18%, polyclonal/polytypic sIg light chain pattern T-cells: no aberrant expression of the markers tested CD4:CD8=6.5 NK-cells: 3% (not increased) MX87-jponaybe 3% events/ debris: No significant reactivity with the markers tested (contains rare non-hematolymphoid cells) Antibodies Performed: CD2, CD3, CD4, CD5, CD7, CD8, CD19, Beatty, Lambda, CD20, CD23, FMC-7, CD11b, CD10, CD45, HLA-DR, CD38, CD56, CD30 (Original [facility] report available upon request by calling Pathology at [phone]). Initial evaluation performed by Rosetta STEWART([facility]) 12/30/09 Final Interpretation electronically signed by: ANKITA DIAS 12/30/09 1338 -- -- DEPARTMENT OF PATHOLOGY, [address] [place] [address] [facility] Permit #[id number] Jaspreet Valverde M.D. Director Ankita Dias M.D. Human Resource Intern Dir ryan -- 10 REVIEWED BY ANKITA DIAS MD NEGATIVE FOR MALIGNANT CELLS 11 FINAL: NO GROWTH DAY 4 12 NO ORGANISMS SEEN BY CYTOSPIN SMEAR FEW Procedures Date CPT Code Description Status 04/06/2018 82114 Echocardiogram, Limited Study Completed 04/04/2018 03280 ECHO Transthorasic Realtime 2D W Doppler & Color Flow Completed Hosp 04/01/2018 61099 EKG Tracing & Interpretation Completed 01/17/2018 53970 EKG Tracing & Interpretation Completed 11/26/2017 88467 ECHO Transthorasic Realtime 2D W Doppler & Color Flow Completed Hosp 05/04/2017 37204 EKG Tracing & Interpretation Completed 10/20/2016 69170 EKG Tracing & Interpretation Completed 05/05/2016 88062 EKG Tracing & Interpretation Completed 08/26/2015 06275 EKG Tracing & Interpretation Completed 12/31/2014 14116 EKG Tracing & Interpretation Completed 07/11/2014 66031 Echocardiogram, Limited Study Completed 05/28/2014 68036 EKG Tracing & Interpretation Completed 05/15/2014 58216 ECHO Transthoracic, Real-Time 2D With Doppler And Color Completed Flow 10/23/2013 02510 EKG Tracing & Interpretation Completed 06/19/2013 46056 EKG Tracing & Interpretation Completed 06/05/2013 85281 EKG, Interpretation Only Completed 06/05/2013 37714 Rhythm ECG With Interp Completed 06/04/2013 94343 EKG, Interpretation Only Completed 06/03/2013 23363 EKG, Interpretation Only Completed 06/02/2013 95207 EKG, Interpretation Only Completed 06/01/2013 80623 EKG, Interpretation Only Completed 05/16/2013 38871 EKG Tracing & Interpretation Completed 04/21/2013 89699 ECHO Transthoracic, Real-Time 2D With Doppler And Color Completed Flow 04/06/2013 02920 EKG, Interpretation Only Completed 04/03/2013 70190 EKG Tracing & Interpretation Completed 03/21/2013 72363 EKG, Interpretation Only Completed 03/19/2013 09646 EKG, Interpretation Only Completed 04/26/2012 36963 EKG Tracing & Interpretation Completed 01/28/2012 54967 EKG, Interpretation Only Completed 12/26/2009 37118 EKG, Interpretation Only Completed Encounters Type Date Location Provider CPT E/M Dx Office Visit 04/10/2018 [facility], Lucy Rowan, 15608 I50.33 9:18a Hospitalists M.D. R60.0 N63.20 I44.7 Office Visit 04/09/2018 9:18a [facility], Lucy Harpal, 51957 I50.33 Hospitalists M.D. R60.0 J44.9 N63.20 I48.0 I44.7 Office Visit 04/08/2018 9:17a [facility], Lucynatan Rowan, 26822 I50.33 Hospitalists M.D. J44.9 N63.20 I48.0 I44.7 Office Visit 04/07/2018 9:17a [facility], Lucy Rowan, 15330 I50.33 Hospitalists M.D. J44.1 N63.20 I48.0 I44.7 Office Visit 04/06/2018 3:37p [facility] Milena Rose M.D. 25377 I50.9 Community Service Officer Coordinator I27.20 J90 I48.0 I25.10 Z79.01 Office Visit 04/06/2018 9:17a [facility], Lucynatan Rowan, 27355 I50.33 Hospitalists M.D. R60.0 I48.0 I44.7 J90 Office Visit 04/05/2018 9:16a [facility], Lucy Rowan, 66761 I50.33 Hospitalists M.D. R60.0 I48.0 I44.7 J90 Z85.71 Office Visit 04/04/2018 9:16a [facility], Daisha Zamora, 80948 I50.9 Hospitalists M.DJudi R60.0 I48.0 I44.7 J90 Office Visit 04/03/2018 9:16a [facility], Daisha Zamora, 15363 I50.9 Hospitalists M.DJudi R60.0 I89.0 I48.0 I44.7 J90 Office Visit 04/02/2018 9:16a [facility], Daisha Sera, 40615 I50.9 Hospitalists M.Je R60.0 I89.0 I48.0 I44.7 J90 Office Visit 04/01/2018 3:30p [facility] [place] [address] R60.9 J44.1 I25.10 I48.0 Office Visit 04/01/2018 9:15a [facility],pc Isi Srinivasan, 49676 I50.9 Hospitalists D.O. I48.0 I44.7 R60.0 I89.0 J90 Z87.891 Office Visit 01/17/2018 3:20p [facility] Mil[facility] Rose M.D. 60769 I48.0 Community Service Officer Coordinator I44.7 I34.0 I25.10 J44.1 Office Visit 11/29/2017 10:40a [facility] Ran, 44210 R06.02 Assoc,pc Hospitalists PA J44.1 I48.91 E03.9 Office Visit 11/28/2017 10:40a [facility] Ran, 51784 R06.02 Assoc,pc Hospitalists PA J44.1 I48.91 E03.9 Office Visit 11/27/2017 10:39a [facility] [address] R06.02 Hospitalists VIVIAN Goff J44.1 I48.91 E03.9 Office Visit 11/26/2017 10:37a [facility] Mer[place]ana , 51013 R06.02 Assoc,pc Hospitalists Bucky J44.1 I48.91 E03.9 Office Visit 05/04/2017 4:00p [facility] Xander Rose M.D. 07493 I48.0 Community Service Officer Coordinator I44.7 I25.10 E78.00 R73.9 Office Visit 10/20/2016 3:30p [facility] EULOGIO Fowler 80218 I48.0 I44.7 I34.0 Office Visit 05/05/2016 4:00p [facility] Rose M.D. 18987 I48.0 [facility] I44.7 I34.0 Office Visit 08/26/2015 3:45p [facility] Rose M.D. 80177 I48.0 [facility] I34.0 I44.7 Office Visit 12/31/2014 3:30p [facility] EULOGIO Fowler 53253 427.31 424.0 244.9 397.0 424.1 Office Visit 05/28/2014 3:00p [facility] EULOGIO Fowler 85822 424.0 427.31 401.9 424.1 Office Visit 10/23/2013 3:15p [facility] Milena Rose M.D. 56763 427.31 [facility] 427.32 794.31 424.0 Office Visit 06/19/2013 2:00p [facility] Rose M.D. 00516 427.31 [facility] 427.32 401.0 Office Visit 06/05/2013 8:43a [facility] [place], 78714 427.32 Rhys Lawler Office Visit 06/04/2013 2:21p [facility] Antonino Miller, 15759 427.32 Rhys Lawler, FAC, [facility] Office Visit 06/03/2013 1:49p [facility] Antonino Miller, 20334 427.32 Rhys Lawler, FAC, [facility] Office Visit 06/02/2013 2:52p [facility] Milena Rose M.D. 18805 427.31 [facility] Office Visit 06/01/2013 1:36p [facility] Milena Rose M.D. 53192 427.31 [facility] Office Visit 05/16/2013 3:30p [facility] Nurse Visit 65078 427.32 [facility] Office Visit 05/09/2013 3:45p [facility] Xander Rose M.D. 47518 427.32 Community Service Officer Coordinator 424.0 Office Visit 04/03/2013 11:15a [facility] Xander Rose M.D. 24076 427.32 [facility] 427.31 511.9 782.3 Office Visit 03/23/2013 5:35p [facility] [place], [address] 682.3 Assoc,pc Hospitalists M.DJudi 288.8 427.31 511.9 Office Visit 03/22/2013 5:[facility] [facility] [place] [address] 682.3 Assoc,pc Hospitalists M.DJudi 427.31 244.9 288.8 Office Visit 03/21/2013 5:[place] [facility] [place] [place] [address] 682.3 [facility]oc,pc Hospitalists M.DJudi 427.31 244.9 288.8 Office Visit 03/20/2013 5:34p [facility] [place], [address]306 682.3 Assoc,pc Hospitalists M.DJudi 427.31 244.9 288.8 Office Visit 03/19/2013 5:[place] [facility] [place] [address] 682.3 Assoc,pc Hospitalists M.DJudi 427.31 244.9 288.8 Office Visit 03/18/2013 5:32p [facility] [place], [address]28 682.3 Assoc,pc Hospitalists M.DJudi 427.31 244.9 288.8 Office Visit 04/26/2012 2:45p [facility] Milena Rose M.D. 53189 427.31 [facility] Office Visit 12/27/2009 1:30a [facility] Uzair Hanks, 82737 244.9 [facility]oc[facility] Hospitalists Bucky Office Visit 12/26/2009 1:15a [facility] Batool Dong M.D. 52728 511.9 [facility] Hospitalists Office Visit 12/25/2009 1:15a [facility] Daisha Zamora, 53620 511.9 Assoc,pc Hospitalists Bucky Plan of Care Future Appointment(s):06/09/2018 3:00 pm - Milena Rose M.D. at [facility]04/01/2018 - Jennifer Phelps, NPR60.9 Edema, unspecifiedNew Orders:OrgltwvokjldfwG72.1 Chronic obstructive pulmonary disease w (acute) sesgzbbbxhjvH23.10 Athscl heart disease of [place] coronary artery w/o ang cbssyB96.0 Paroxysmal atrial fibrillation
--- NOTE | 2018-05-08 18:52 | ED ---
Shortness of Breath - HPI Summary HPI Summary: This patient is a 62 year old F presenting to [facility] accompanied by sister-in- law with a chief complaint of SOB that began earlier today. The patient rates the pain 0/10 in severity. Symptoms aggravated by recumbent position. Symptoms alleviated by rescue inhaler. Patient reports bilateral lower extremity edema, and productive cough. Patient denies fever and CP. Patient states she was discharged from the hospital on 05/06/2018 due to a CHF exacerbation. Patient states she has not received her flu shot this year. Pt states she is still on her xarelto. Also states that her Tikosyn was decreased by half due to prolonged QTc, which she was told had normalized on 05/06/18. Pt has been on this decreased dose x 48 hrs. Pt denies palpitations or arrythmia. Pt states her weight has been stable since 05/06/18. Vital signs while in room: HR 90 bpm, BP 125/85, and O2 sat 94% on room air. Home Medications Medication Instructions Recorded Confirmed Type clonazePAM TAB(*) [Klonopin TAB(*)] 1 mg PO BEDTIME 03/18/13 05/02/18 History Silex-3/Dha/Epa/Fish Oil [Fish Oil 1 cap PO DAILY 04/05/13 05/02/18 History 500 mg Softgel] Levothyroxine TAB* [Synthroid 75 75 mcg PO DAILY 12/16/15 05/02/18 History MCG TAB*] Metoprolol Tartrate TAB* 50 mg PO BID 12/16/15 05/02/18 History [Lopressor TAB*] Clotrimazole 1% CREAM* 1 applic TOPICAL BID #1 tube 02/02/16 05/02/18 Rx [Clotrimazole 1%*] Acetaminophen TAB* [Tylenol TAB*] 650 mg PO Q6H PRN tab 11/29/17 05/02/18 Rx Albuterol HFA INHALER* [Ventolin 2 puff INH Q6H PRN 04/01/18 05/02/18 History HFA Inhaler*] Ascorbic Acid TAB* [Vitamin C 1,000 mg PO DAILY 04/01/18 05/02/18 History TAB*] Calcium/Magnesium/Vitamin D3 2 tab PO BID 04/01/18 05/02/18 History [Manoj-Mag Complex 300-150 mg Tab] Cholecalciferol TAB* [Vitamin D 400 unit PO DAILY 04/01/18 05/02/18 History TAB*] Lactobacillus Acidophilus 1 cap PO BID 04/01/18 05/02/18 History [Acidophilus] Resveratrol 100 mg PO QPM 04/01/18 05/02/18 History Rivaroxaban TAB(*) [Xarelto 20 mg] 20 mg PO DAILY 04/01/18 05/02/18 History Ubidecarenone [Co Q-10] 100 mg PO DAILY 04/01/18 05/02/18 History Vitamin B Complex CAP* [B Complex 1 cap PO DAILY 04/01/18 05/02/18 History CAP*] raNITIdine HCl [Ranitidine HCl] 150 mg PO DAILY 04/01/18 05/02/18 History Furosemide TAB* [Lasix TAB*] 20 mg PO MOWEFR #0 04/10/18 05/02/18 Rx Dofetilide CAP* [Tikosyn CAP*] 125 mcg PO BID #60 cap 05/05/18 Rx Potassium Chlor TAB* [Potassium 20 meq PO DAILY #5 tab.er 05/05/18 Rx Chlor TAB 20 MEQ*] - History of Current Complaint Chief Complaint: EDShortnessOfBreath Time Seen by Provider: 05/08/18 18:31 Hx Obtained From: Patient, Family/Grocery Stocker - Mone, sister in law Onset/Duration: Sudden Onset, Lasting Hours - today Timing: Constant Current Severity: Moderate Dyspnea At: Rest Aggrevating Factors: Recumbent Position Alleviating Factors: Other - Rescue inhaler Associated Signs & Symptoms: Cough (Productive), Edema Related History: Similar Episode - CHF, hospitalized and DC'd 05/06/18 - Allergy/Home Medications Allergies/Adverse Reactions: Allergies Allergy/AdvReac Type Severity Reaction Status Date / Time sotalol Allergy Unknown Unknown Verified 05/02/18 12:06 Reaction Details clindamycin Allergy Tachycardia Verified 05/02/18 12:06 dronedarone Allergy Anaphylatic Verified 05/02/18 12:06 Shock levofloxacin Allergy Itching Verified 05/02/18 12:06 penicillin G Allergy Anaphylatic Verified 05/02/18 12:06 Shock Penicillins Allergy Anaphylatic Verified 05/02/18 12:06 Shock PMH/Surg Hx/FS Hx/Imm Hx Previously Healthy: No Endocrine/Hematology History: Reports: Hx Thyroid Disease Denies: Hx Diabetes Cardiovascular History: Reports: Hx Congestive Heart Failure, Other Cardiovascular Problems/Disorders - A-flutter history; takes Xarelto, Tikosyn, metoprolol; lymphedema left arm Denies: Hx Coronary Artery Disease Respiratory History: Reports: Hx Chronic Bronchitis, Hx Chronic Obstructive Pulmonary Disease (COPD), Hx Pleural Effusion Denies: Hx Asthma GI History: Reports: Hx Gastroesophageal Reflux Disease Sensory History: Reports: Hx Contacts or Glasses Denies: Hx Deafness, Hx Hearing Aid Opthamlomology History: Reports: Hx Contacts or Glasses Neurological History: Reports: Hx Seizures - childhood febrile, Other Neuro Impairments/Disorders - 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 treated with chemo and radiation. Hx Chemotherapy: Yes Hx Radiation Therapy: Yes - Surgical History Surgery Procedure, Year, and Place: THORACOTOMY, exploratory laparotomy for lymphoma Hx Anesthesia Reactions: No - Immunization History Date of Influenza Vaccine: not in 2017 Infectious Disease History: Yes Infectious Disease History: Reports: Hx Shingles Denies: Traveled Outside the [place] in Last 30 Days - Family History Known Family History: Positive: Other - Aunt/father with throat cancer - Social History Occupation: Disabled Lives: Alone Alcohol Use: None Hx Substance Use: No Substance Use Type: Reports: None Hx Tobacco Use: Yes Smoking Status (MU): Former Smoker Type: Cigarettes Amount Used/How Often: 10 years 1 ppd; plus 10 years 5 cigarettes/day Have You Smoked in the Last Year: No Review of Systems Negative: Fever Negative: Palpitations, Chest Pain Positive: Shortness Of Breath, Cough Gastrointestinal: Negative Positive: Edema Positive: Other - chronic lymphedema left arm Neurological: Negative Psychological: Normal All Other Systems Reviewed And Are Negative: Yes Physical Exam - Summary Physical Exam Summary: Appearance: ill-appearing, moderate pain distress, well-nourished, dyspneic at rest Skin: Warm, color reflects adequate perfusion, dry, wearing a glove on her right hand for neuropathy Head: Normal Head/Face inspection, atraumatic Eyes: Conjunctiva clear ENT: Normal inspection Neck: Supple, no nodes, positive JVD, accessory muscles of respiration Respiratory: rales right base, shallow respirations, moderate respiratory distress, speaks in short bursts Cardio: RRR, No murmur, pulses normal, brisk capillary refill Abdomen: Soft, nontender, nondistended, midline scar from epigastrium to suprapubic area Bowel sounds: Present Musculoskeletal: Strength Intact/ROM intact, no calf tenderness, 2+ edema bipedal, severe left arm lymphedema Psychological: Normal Neuro: Alert, muscle tone normal, no focal deficit Triage Information Reviewed: Yes Vital Signs On Initial Exam: Initial Vitals Temp Pulse Resp BP Pulse Ox 99 F 84 18 115/47 95 05/08/18 18:11 05/08/18 18:11 05/08/18 18:11 05/08/18 18:11 05/08/18 18:11 Vital Signs Reviewed: Yes Diagnostics - Vital Signs Vital Signs Temp Pulse Resp BP Pulse Ox 05/08/18 18:44 95 05/08/18 18:19 86 20 98 05/08/18 18:18 84 22 125/85 98 05/08/18 18:11 99 F 84 18 115/47 95 - Laboratory Result Diagrams: 05/08/18 19:56 05/08/18 19:56 Lab Statement: Any lab studies that have been ordered have been reviewed, and results considered in the medical decision making process. - Radiology CXR Radiology Interpretation Completed By: ED Physician Summary of Radiographic Findings: CXR reveals, per ED physician, bilateral pleural effusions, multiple masses in right lung, and no significant change compared with CXR taken on 05/02/2018 - EKG 1848 Cardiac Rate: NL EKG Rhythm: Sinus Rhythm - 89 BPM EKG Comparison: Other - compared with 05/06/2018: inverted complexes in II, II, and AVF and a more prolonged QTC Summary of EKG Findings: An EKG taken at 1848 reveals sinus rhythm at 89 BPM, with nml AVCT, prolonged IVCD (nonspecific, 135), QTC 508, left axis -87, LVH, compared with 05/06/2018: inverted complexes in II, II, and AVF and a more prolonged QTC. Not STEMI. No acute changes. Re-Evaluation - Re-Evaluation First Eval Re-Evaluation Time: 19:12 Change: Unchanged Comment: NICOLAS Rao attempting IV insertion via ultrasound Course/Dx - Course Course Of Treatment: This patient is a 62 year old F presenting to [facility] accompanied by [id number] with a chief complaint of SOB that began earlier today. Vital signs while in room: HR 90 bpm, BP 125/85, and O2 sat 94% on room air. Physical Exam Findings: dyspneic at rest, wearing a glove on her right hand for neuropathy, positive JVD, accessory muscles of respiration, rales right base, shallow respirations, moderate respiratory distress, speaks in short bursts, 2+ edema bipedal, severe left arm lymphedema. An EKG taken at 184 reveals sinus rhythm at 89 BPM, with nml AVCT, prolonged IVCD (nonspecific , 135), QTC 508, left axis -87, LVH, compared with 05/06/2018: inverted complexes in II, II, and AVF and a more prolonged QTC. Not STEMI. No acute changes. CXR reveals, per ED physician, bilateral pleural effusions, multiple masses in right lung, and no significant change compared with CXR taken on 05/02. Bloodwork and UA obtained. White blood cell count and CRP more elevated than previous. BNP slightly decreased from previous but still greater than 800. Sodium and chloride decreased more than previous admission. Consult with Dr. Mattson (hospitalist) at 2030. She agrees to admit patient for further evaluation. The patient is agreeable with this plan. - Diagnoses Differential Diagnosis/HQI/PQRI: Positive: Bronchitis, CHF, COPD Exacerbation, MT, Pneumonia Provider Diagnoses: CHF (congestive heart failure), Pleural effusion, Pneumonia, QT prolongation - Physician Notifications Discussed Care of Patient With: Isi Mattson - admit Time Discussed With Above Provider: 20:31 Instructed by Provider To: Admit As Observation Discharge - Sign-Out/Discharge Documenting (check all that apply): Patient Departure - Admit to [facility] [place] - Discharge Plan Condition: Stable Disposition: ADMITTED TO [facility] Referrals: Philip Chirinos MD [Primary Care Provider] - - Billing Disposition and Condition Condition: STABLE Disposition: Admitted to [facility] - Attestation Statements Document Initiated by Scribe: Yes Documenting Scribe: Lara Mosley Provider For Whom Scribe is Documenting (Include Credential): Dr. Radha Calzada MD Scribe Attestation: Lara Damon, scribed for Dr. Radha Calzada MD on 05/08/18 at 2053. Scribe Documentation Reviewed: Yes Provider Attestation: The documentation as recorded by the scribe, Lara Mosley accurately reflects the service I personally performed and the decisions made by me, Dr. Radha Calzada MD
[2018-05-08 20:06] LABS: ABS Basophils 0.1 10^3/ul (0-0.2); ABS Eosinophils 0 10^3/ul (0-0.6); ABS Lymphocytes 0.3 10^3/ul (1.0-4.8); ABS Monocytes 1.5 10^3/ul (0-0.8); ABS Neutrophils 14.6 10^3/ul (1.5-7.7); ABS Nucleated RBC 0 10^3/ul; Eosinophil % 0 % (0-6); Hematocrit 43 % (35-47); Hemoglobin 13.9 g/dl (12.0-16.0); Mean Corpuscular HGB Conc 32 g/dl (31-36); Mean Corpuscular Hemoglobin 28 pg (27-31); Mean Corpuscular Volume 88 fL (80-97); Mean Platelet Volume 7.7 um3 (7.4-10.4); Nucleated Red Blood Cells % 0.1; Platelet Count 315 10^3/ul (150-450); Red Blood Count 4.95 10^6/ul (4.00-5.40); Red Cell Distribution Width 16 % (10.5-15); White Blood Count 16.5 10^3/ul (3.5-10.8)
[2018-05-08 20:13] LABS: INR 2.74 (0.77-1.02)
[2018-05-08 20:23] LABS: EGFR Non-African American 96.1 (>60)
[2018-05-08] MEDS ORDERED: Albuterol/Ipratropium NEB.SOL* Albuterol 2.5 MG/Ipratropium 0.5 MG 3 ML INH PRN (21:10)
[2018-05-08] MEDS ORDERED: Cefepime 1 GM in Dextrose(*) 1 GM/50 ML BAG IV SCH (22:00)
[2018-05-08] MEDS ORDERED: Vancomycin(*) 1,250 MG in NS 0.9% 250 ML* 250 ML IVPB ONE (22:00)
[2018-05-08] MEDS ORDERED: Vancomycin per Pharmacy* NOTE FOLLOW UP SCH (22:00)
--- NOTE | 2018-05-08 22:53 | HP ---
AMENDED REPORT NOW INCLUDES DESIGNATED COSIGNER CC: Dr. Chirinos * HOSPITAL MEDICINE HISTORY AND PHYSICAL: DATE OF ADMISSION: 05/08/18 PRIMARY CARE PHYSICIAN: Dr. Chirinos. ATTENDING PHYSICIAN: Dr. Isi Mattson * (dictated provided by Denise Asher NP) . CHIEF COMPLAINT: Shortness of breath and malaise. HISTORY OF PRESENT ILLNESS: Ms. Traylor is a 62-year-old female with a past medical history of recent discharge from our hospital on 05/06/18 after treatment for diastolic congestive heart failure. She also has a history of atrial fibrillation, on chronic Xarelto therapy; coronary artery disease; COPD; pulmonary hypertension; Hodgkin's lymphoma with VATS procedure in 2011; and multiple loculated pleural effusions on the right. She also has a history of recent finding on chest CT of a left breast mass that is enhancing on 04/06/18 for which she has not had followup. She states that when she left here from our hospital on 05/06/18 she was feeling better but she did feel very mildly short of breath. She anticipated that she would feel better in the coming days. However, by last night, she was feeling worse. She describes feeling more short of breath. She states she had difficulty sleeping because of this. This morning, she had an episode where she was suddenly extremely tired and very short of breath with cough. She denies any fever. She does confirm malaise. She denies nausea or vomiting or abdominal pain. She states she has had frequent bowel movements over the past few days totaling about 3 to 4 days ranging from firm to liquid. She states that her weight is at baseline since returning home and she is at her dry weight according to the scale that she uses with VNS. She has noticed no new lower extremity edema. In the emergency room, Ms. Traylor had labs, which showed that she had a white blood cell count of 16.5 which was new from her last hospitalization. She also has hyponatremia with sodium of 129. Her CRP is dramatically elevated at 240.80. Her lactic acid is only 1.7. Her procalcitonin is 0.5. She is not febrile. Heart rate is running 80 to 100. Blood pressure is stable. She is not hypoxic and her O2 saturation is 96% on room air. Her chest x-ray is grossly abnormal, but it is difficult to determine if it is any different from previous chest x-ray due to significant abnormalities as of 05/02/18. PAST MEDICAL HISTORY: 1. Diastolic congestive heart failure. 2. Atrial fib/flutter. 3. Single-vessel CAD. 4. COPD. 5. Pulmonary hypertension. 6. Hodgkin's lymphoma with recurrence in 1990. 7. Hypothyroidism. 8. History of splenectomy. 9. Appendectomy. 10. Status post VATS procedure on the right in 2011, reported to be secondary to complications of treatment for Hodgkin's lymphoma. 11. Enhancing breast mass noted since CT scan 04/06/18. MEDICATIONS: 1. Albuterol inhaler 2 puffs inhaled q.6 hours p.r.n. 2. Calcium, magnesium, vitamin D3 two tabs p.o. b.i.d. 3. Clotrimazole 1% one application topically b.i.d. 4. Lactobacillus 1 cap p.o. b.i.d. 5. Cope-3 fatty acid with fish oil 1 cap p.o. daily. 6. Ranitidine 150 mg p.o. daily. 7. Resveratrol 100 mg p.o. q.p.m. 8. Co-Q10 100 mg p.o. daily. 9. Vitamin B complex 1 cap p.o. daily. 10. Tylenol 650 mg p.o. q.6 hours p.r.n. 11. Ascorbic acid 1000 mg p.o. daily. 12. Cholecalciferol 400 units p.o. daily. 13. Clonazepam 1 mg p.o. at bedtime. 14. Tikosyn 125 mcg p.o. b.i.d. 15. Furosemide 20 mg p.o. Wednesday, Wednesday, Wednesday. 16. Levothyroxine 75 mcg p.o. daily. 17. Metoprolol tartrate 50 mg p.o. b.i.d. 18. Potassium chloride 20 mEq p.o. daily. 19. Rivaroxaban 20 mg p.o. daily. ALLERGIES: To SOTALOL, CLINDAMYCIN, DRONEDARONE, LEVOFLOXACIN, and PENICILLINS. FAMILY HISTORY: The patient's mother in her 80s. Dad at 56 from throat cancer. SOCIAL HISTORY: The patient is a former smoker, but quit about 10 years ago. No reported alcohol or drug use. She states her brother, Monroe Traylor, would be her healthcare proxy. REVIEW OF SYSTEMS: A 14-point review of systems was completed with Ms. Traylor and all those not mentioned above were negative. PHYSICAL EXAMINATION GENERAL: Ms. Traylor is sitting up in the bed. She appears in no acute distress. She is not on oxygen. VITAL SIGNS: Temperature 99, pulse rate of 91, respiratory rate 25, O2 saturation 96% on room air, blood pressure 127/88. LUNGS: Diminished bilaterally especially on the right. There are no adventitious sounds noted. There is no accessory muscle use. HEART: S1, S2. No murmur, rub, or gallop and regular. ABDOMEN: Soft, nontender with bowel sounds positive x4. BREAST: Firm, immobile mass to the left breast at 12 o'clock directly above the nipple. No dimpling, no discharge from the nipple. EXTREMITIES: No cyanosis. Positive for 1+ edema, bilateral lower extremities. NEUROLOGIC: She is alert. She is oriented x3. She moves all extremities equally. There is no facial asymmetry or focal weakness. Extraocular movements are intact. SKIN: Intact. No erythema or rashes noted. LABORATORY DATA: Sodium 129, potassium 4.2, chloride 91, serum bicarbonate 31 , BUN 19, creatinine 0.63, glucose 113. Lactic acid 1.7. Troponin 0.01. CRP 240.80. BNP 813. WBC 16.5, hemoglobin 13.9, hematocrit 43, platelet count 315. INR 2.74. D-dimer greater than 250. Flu swab is negative. Chest x-ray shows gross abnormalities with suspected multiple loculate fluid collections on the right side of unclear difference, which were grossly similar to previous exam. ASSESSMENT: Ms. Traylor is a 62-year-old female with a past medical history of discharge from our hospital on 05/06/18 after being treated for diastolic congestive heart failure. She also has a history of atrial fibrillation, on Xarelto; coronary artery disease; chronic obstructive pulmonary disease; pulmonary hypertension; Hodgkin's lymphoma and multiple loculated fluid collections on the right lung and finding of an enhancing breast mass on CT scan, 04/06/18. She returns to the hospital today reporting malaise and shortness of breath, found to have evidence for infection. Our plan are for inpatient admission as I expect her length of stay to be greater than 2 days for the followin. Malaise and shortness of breath. The patient states that she is at her current dry weight. She has noted no new lower extremity edema. The chest x- ray is grossly abnormal and difficult to interpret but appears similar to baseline. Her BNP is elevated but it is at baseline. Overall, it seems that she is not having congestive heart failure exacerbation. There is no wheezing to suggest a chronic obstructive pulmonary disease exacerbation. She is not hypoxic. I question, given the fact that she has an elevated CRP and white blood cell count, whether or not these symptoms are related to early pneumonia. Plan to treat as such with vancomycin and cefepime given her recent hospitalization. These can be tailored and de-escalated based on clinical course in the coming 24 to 48 hours. The patient does not have signs of sepsis. 2. Elevated white blood cell and CRP: It could be that the patient has an alternate infection. She had blood cultures ordered. She has urinalysis, which is pending. Again, I think this is secondary to possible pneumonia. However, I do note that she has a breast mass and I question whether or not she could have an underlying oncologic process driving her symptomatology. Workup will be as per below. 3. Breast mass. This seems to have grown based on physical examination from the finding on 04/06/18. I think the patient warrants further workup while here and I am recommending that she have consultation with surgical services tomorrow regarding biopsy. 4. Congestive heart failure. The patient appears to be at her baseline. Plan to continue her home furosemide. 5. History of atrial fibrillation. Continue rivaroxaban, but will need to consider holding that if patient does go on for biopsy. Need to continue metoprolol and Tikosyn. The patient's QTc is little bit long, but it is consistent with her entire previous hospitalization during which time, the Tikosyn dose was reduced. 6. Chronic obstructive pulmonary disease. No evidence of acute exacerbation at this point but we will continue to monitor closely. She will have albuterol and nebulizers available p.r.n. 7. Hypothyroidism. Continue levothyroxine. 8. Code status. Full code. TIME SPENT: Approximately 60 minutes were spent on the admission of this patient, more than half the time spent with her at the bedside reviewing the events leading up to this hospitalization, performing the physical examination, and reviewing my plan of care. DENISE ASHER NP [id number]/[facility] #: [id number] [facility]
[2018-05-08] MEDS: Metoprolol Tartrate TAB* 50 mg PO SCH (23:43)
[2018-05-08] MEDS: Rivaroxaban TAB(*) 20 MG TAB PO SCH (23:44)
[2018-05-09] MEDS: Dofetilide CAP* 125 MCG PO SCH ×3 (00:12→20:52)
[2018-05-09] MEDS: Albuterol HFA INHALER* 8 gm MDI INH PRN ×4 (01:30→23:35)
[2018-05-09] MEDS: clonazePAM TAB(*) 1 MG PO SCH ×2 (01:32→20:51)
[2018-05-09] MEDS: Aztreonam (*) 1 GM in NS 0.9% 50 ML* 50 ML IVPB SCH ×3 (02:18→18:29)
[2018-05-09 06:58] LABS: ABS Basophils 0.1 10^3/ul (0-0.2); ABS Eosinophils 0 10^3/ul (0-0.6); ABS Lymphocytes 0.4 10^3/ul (1.0-4.8); ABS Monocytes 1.5 10^3/ul (0-0.8); ABS Neutrophils 13.7 10^3/ul (1.5-7.7); ABS Nucleated RBC 0 10^3/ul; Eosinophil % 0.1 % (0-6); Hematocrit 42 % (35-47); Hemoglobin 13.7 g/dl (12.0-16.0); Lymphocyte % 2.5 % (25-47); Mean Corpuscular HGB Conc 33 g/dl (31-36); Mean Corpuscular Hemoglobin 29 pg (27-31); Mean Corpuscular Volume 88 fL (80-97); Mean Platelet Volume 7.9 um3 (7.4-10.4); Nucleated Red Blood Cells % 0.1; Platelet Count 233 10^3/ul (150-450); Red Cell Distribution Width 16 % (10.5-15); White Blood Count 15.7 10^3/ul (3.5-10.8)
--- NOTE | 2018-05-09 07:21 | RAD ---
INDICATION: Shortness of breath. COMPARISON: Correlation is made with prior CT of the chest from April 06, 2018 and a prior chest x-ray study from May 02, 2018. TECHNIQUE: A portable view of the chest was obtained. FINDINGS: The heart appears mildly enlarged and unchanged. There is a moderate right pleural effusion a portion of which appears loculated and a small left pleural effusion. These have progressed slightly. There is a right basilar infiltrate which is also slightly progressed. IMPRESSION: 1. MODERATE PARTIALLY LOCULATED RIGHT PLEURAL EFFUSION AND SMALL LEFT PLEURAL EFFUSION DEMONSTRATING SLIGHT PROGRESSION. 2. RIGHT BASILAR INFILTRATE ALSO SLIGHTLY PROGRESSED. R1F
[2018-05-09 07:22] LABS: EGFR Non-African American 96.1 (>60)
[2018-05-09] MEDS: Levothyroxine TAB* 75 MCG TAB PO SCH (09:11)
[2018-05-09] MEDS: Vancomycin(*) 1,000 MG in NS 0.9% 250 ML* 250 ML IVPB SCH ×3 (09:33→23:55)
[2018-05-09] MEDS: Lactobacillus Acidophilus* 1 TAB PO SCH ×2 (09:34→20:51)
[2018-05-09] MEDS: Rivaroxaban TAB(*) 20 MG TAB PO SCH ×2 (09:34→20:51)
[2018-05-09] MEDS: Ascorbic Acid TAB* 500 MG PO SCH ×2 (09:36→09:49)
[2018-05-09] MEDS: Potassium Chlor TAB* 20 MEQ TAB.ER PO SCH (09:36)
[2018-05-09] MEDS: Cholecalciferol TAB* 400 UNIT PO SCH (09:36)
[2018-05-09] MEDS: Metoprolol Tartrate TAB* 50 mg PO SCH ×2 (09:37→20:52)
[2018-05-09] MEDS: Furosemide TAB* 20 MG PO SCH (09:49)
--- NOTE | 2018-05-09 17:09 | PN ---
Subjective Date of Service: 05/09/18 Interval History: Pt seen and examined. Meds and labs reviewed. CC: Improved SOB from presentation ROS: Denied WOOD/dizziness, F/C, N/V, CP, increased cough, sputum production, abd pain, diarrhea, constipation, dysuria, myalgias, arthralgias, throat pain, and new skin lesions. The rest of the 14 point ROS are unremarkable. PHYSICAL EXAM: GEN APPEARANCE: Awake, not in acute distress HEENT: NC/AT, PERRLA, moist oral mucosa, (-) throat erythema NECK: Soft, supple, (-) cervical LAD, (-)JVD HEART: S1S2 WNL, RRR, No MRG CHEST: (+)Bibasal crackles, GAE, No W/R/R ABD: Soft, ND/NT, NABS 4x Q EXT: No C/C/E SKIN: Warm to touch PSYCH: No active psychosis, hallucinations, depression, SI/HI Objective Active Medications: Acetaminophen (Tylenol Tab*) 650 mg PO Q6H PRN PRN Reason: FEVER/PAIN Albuterol (Ventolin Hfa Inhaler*) 2 puff INH Q2H PRN PRN Reason: SOB/WHEEZING Albuterol/Ipratropium (Duoneb (Albuterol 2.5 Mg/Ipratropium 0.5 Mg)) 1 neb INH [id number] AWAKE [facility] Ascorbic Acid (Vitamin C Tab*) 1,000 mg PO DAILY [facility] Last Admin: 05/09/18 09:49 Dose: Not Given Cholecalciferol (Vitamin D Tab*) 400 unit PO DAILY [facility] Last Admin: 05/09/18 09:36 Dose: 400 unit Clonazepam (Klonopin Tab(*)) 1 mg PO BEDTIME [facility] Last Admin: 05/09/18 01:32 Dose: 1 mg Dofetilide (Tikosyn Cap*) 125 mcg PO BID [facility] Last Admin: 05/09/18 09:49 Dose: 125 mcg Furosemide (Lasix Tab*) 20 mg PO MOWEFR [facility] Last Admin: 05/09/18 09:49 Dose: 20 mg Vancomycin HCl 1,000 mg/ (Sodium Chloride) 250 mls @ 166.667 mls/hr IVPB Q8H [facility] Last Admin: 05/09/18 16:13 Dose: 166.667 mls/hr Aztreonam 1 gm/ Sodium (Chloride) 50 mls @ 200 mls/hr IVPB Q8H [facility] Last Admin: 05/09/18 11:42 Dose: 200 mls/hr Lactobacillus Rhamnosus (Lactobacillus Acidophilus*) 1 tab PO BID [facility] Last Admin: 05/09/18 09:34 Dose: 1 tab Levothyroxine Sodium (Synthroid Tab*) 75 mcg PO DAILY@0730 [facility] Last Admin: 05/09/18 09:11 Dose: 75 mcg Metoprolol Tartrate (Lopressor Tab*) 50 mg PO BID [facility] Last Admin: 05/09/18 09:37 Dose: 50 mg Pharmacy Consult (Vancomycin Per Pharmacy*) 1 note FOLLOW UP .VANC PER PHARMACY [facility] Pharmacy Profile Note (Vancomycin Trough Check) 1 note FOLLOW UP 729 ONE Stop: 05/10/18 07:31 Potassium Chloride (Klor Con Er Tab*) 20 meq PO DAILY [facility] Last Admin: 05/09/18 09:36 Dose: 20 meq Rivaroxaban (Xarelto(*)) 20 mg PO BEDTIME [facility] Oxygen Devices in Use Now: None Result Diagrams: 05/09/18 06:43 05/09/18 06:43 Microbiology and Other Data: Microbiology 05/08/18 19:00 Influenza Types A,B Antigen - Final Nasopharyngeal Specimen received for Influenza A/B Molecular testing Assess/Plan/Problems-Billing Assessment: - Patient Problems (1) HCAP (healthcare-associated pneumonia) Current Visit: Yes Status: Acute Code(s): J18.9 - PNEUMONIA, UNSPECIFIED ORGANISM SNOMED Code(s): 694549306 Comment: -Agree with Aztreonam and Vancomycin -(-) Influenza A&B -Blood cultures pendingwill defer with covering hospitalist to follow in subsequent days -Will send for S. pneumoniae and Legionella urine Ag -Will change Duonebs to q4H ATC while awake and change PRN frequency of Albuterol HFA to q2H -Given improving leukocytosis since admission with pleural effusion and increasing R. sided consolidation on CXR, despite elevated D-dimer, will hold off on CTA of chest as it does clinically appear to be HCAPre-consider CTA of chest if pt gets worse or has not improved any further by tomorrow; especially concerning given hx of breast mass and history of HD -D/W Dr. Ceja given hx of HD S/P VATS and now with breast mass, possibly evolving in size---will await official evaluation (2) Breast mass Current Visit: No Status: Acute Code(s): N63.0 - UNSPECIFIED LUMP IN UNSPECIFIED BREAST SNOMED Code(s): 20371214 Comment: -Left; Spoke with Dr. Coppola and advised for left breast U/S and somebody in the surgical services that treat/follow breast mass will see pt in AM -Surgical consult placed and appreciate Dr. Deleon advise---will await official eval (3) CHF (congestive heart failure) Current Visit: No Status: Acute Code(s): I50.9 - HEART FAILURE, UNSPECIFIED SNOMED Code(s): 78579867 Comment: -Baseline BNP -Continue watchful waiting given pt has diastolic dysfunction and certainly lead to exacerbation quickly (4) Atrial fibrillation Current Visit: No Status: Acute Code(s): I48.91 - UNSPECIFIED ATRIAL FIBRILLATION SNOMED Code(s): 58238733 Comment: #A. fib, hx of: -Continue Rivaroxaban -Rate controlled on Metoprolol (5) Hypothyroid Current Visit: No Status: Acute Code(s): E03.9 - HYPOTHYROIDISM, UNSPECIFIED SNOMED Code(s): 08715309 Comment: -Will recheck FT4 and TSH given last one (TSH) was only mildly elevated (6) COPD (chronic obstructive pulmonary disease) Current Visit: Yes Status: Acute Code(s): J44.9 - CHRONIC OBSTRUCTIVE PULMONARY DISEASE, UNSPECIFIED SNOMED Code(s): 33214187 Comment: -Not in acute exacerbation -Please see above changes to nebulization and inhaler orders (7) DVT prophylaxis Current Visit: No Status: Acute Code(s): UPA7449 - SNOMED Code(s): 022268286 Comment: -On Rivaroxaban Status and Disposition: -For PT eval
[2018-05-09] MEDS: Albuterol/Ipratropium NEB.SOL* Albuterol 2.5 MG/Ipratropium 0.5 MG 3 ML INH SCH ×2 (19:10→23:32)
[2018-05-10 00:01] LABS: Urine Appearance Clear; Urine Blood 1+ (Negative); Urine Color Yellow; Urine Ketones Negative (Negative); Urine Protein Negative (Negative); Urine Red Blood Cell Trace(0-2/hpf) (Absent); Urine Specific Gravity 1.005 (1.010-1.030); Urine Urobilinogen Negative (Negative); Urine White Blood Cell Trace(0-5/hpf) (Absent)
[2018-05-10] MEDS: Aztreonam (*) 1 GM in NS 0.9% 50 ML* 50 ML IVPB SCH ×2 (01:54→11:37)
[2018-05-10] MEDS: Albuterol/Ipratropium NEB.SOL* Albuterol 2.5 MG/Ipratropium 0.5 MG 3 ML INH SCH ×3 (03:22→12:02)
[2018-05-10] MEDS: Albuterol HFA INHALER* 8 gm MDI INH PRN ×4 (06:28→23:42)
[2018-05-10] MEDS ORDERED: Vancomycin Trough Check NOTE FOLLOW UP ONE (07:30)
[2018-05-10] MEDS: Levothyroxine TAB* 75 MCG TAB PO SCH (09:07)
[2018-05-10] MEDS: Ascorbic Acid TAB* 500 MG PO SCH ×2 (09:09→09:13)
[2018-05-10] MEDS: Lactobacillus Acidophilus* 1 TAB PO SCH ×2 (09:09→22:07)
[2018-05-10] MEDS: Potassium Chlor TAB* 20 MEQ TAB.ER PO SCH (09:09)
[2018-05-10] MEDS: Cholecalciferol TAB* 400 UNIT PO SCH (09:09)
[2018-05-10] MEDS: Metoprolol Tartrate TAB* 50 mg PO SCH ×2 (09:09→22:06)
[2018-05-10] MEDS: Vancomycin(*) 1,000 MG in NS 0.9% 250 ML* 250 ML IVPB SCH ×3 (09:12→23:26)
[2018-05-10] MEDS: Dofetilide CAP* 125 MCG PO SCH ×2 (11:36→22:04)
[2018-05-10] MEDS: Aztreonam (*) 1 GM in NS 0.9% 100 ML* 100 ML IVPB SCH ×2 (11:37→20:28)
[2018-05-10] MEDS ORDERED: Albuterol/Ipratropium NEB.SOL* Albuterol 2.5 MG/Ipratropium 0.5 MG 3 ML INH PRN (13:09)
--- NOTE | 2018-05-10 17:06 | PN ---
Subjective Date of Service: 05/10/18 Interval History: patient continues to report shortness of breath , states that she also feels anxious. Denies chest pain , denies fever or chills, denies abd pain n/v/d. Spoke to ultrasound about need for needle bx of the left breast. order placed for tomorrow. Family History: Unchanged from Admission Social History: Unchanged from Admission Past Medical History: Unchanged from Admission Objective Active Medications: Acetaminophen (Tylenol Tab*) 650 mg PO Q6H PRN PRN Reason: FEVER/PAIN Albuterol (Ventolin Hfa Inhaler*) 2 puff INH Q2H PRN PRN Reason: SOB/WHEEZING Last Admin: 05/10/18 12:02 Dose: 2 puff Albuterol/Ipratropium (Duoneb (Albuterol 2.5 Mg/Ipratropium 0.5 Mg)) 1 neb INH [id number] AWAKE PRN PRN Reason: SOB/WHEEZING Ascorbic Acid (Vitamin C Tab*) 1,000 mg PO DAILY [facility] Last Admin: 05/10/18 09:13 Dose: Not Given Cholecalciferol (Vitamin D Tab*) 400 unit PO DAILY [facility] Last Admin: 05/10/18 09:09 Dose: 400 unit Clonazepam (Klonopin Tab(*)) 1 mg PO 2300 [facility] Dofetilide (Tikosyn Cap*) 125 mcg PO 1000,2200 [facility] Last Admin: 05/10/18 11:36 Dose: 125 mcg Furosemide (Lasix Tab*) 20 mg PO MOWEFR [facility] Last Admin: 05/09/18 09:49 Dose: 20 mg Vancomycin HCl 1,000 mg/ (Sodium Chloride) 250 mls @ 166.667 mls/hr IVPB Q8H [facility] Last Admin: 05/10/18 16:20 Dose: 166.667 mls/hr Aztreonam 1 gm/ Sodium (Chloride) 100 mls @ 400 mls/hr IVPB Q8H [facility] Stop: 05/11/18 12:30 Last Admin: 05/10/18 11:37 Dose: 400 mls/hr Aztreonam 1 gm/ Sodium (Chloride) 50 mls @ 200 mls/hr IVPB Q8H [facility] Lactobacillus Rhamnosus (Lactobacillus Acidophilus*) 1 tab PO BID [facility] Last Admin: 05/10/18 09:09 Dose: 1 tab Levothyroxine Sodium (Synthroid Tab*) 75 mcg PO DAILY@0730 [facility] Last Admin: 05/10/18 09:07 Dose: 75 mcg Metoprolol Tartrate (Lopressor Tab*) 50 mg PO BID [facility] Last Admin: 05/10/18 09:09 Dose: 50 mg Pharmacy Consult (Vancomycin Per Pharmacy*) 1 note FOLLOW UP .VANC PER PHARMACY [facility] Potassium Chloride (Klor Con Er Tab*) 20 meq PO DAILY [facility] Last Admin: 05/10/18 09:09 Dose: 20 meq Rivaroxaban (Xarelto(*)) 20 mg PO BEDTIME [facility] Last Admin: 05/09/18 20:51 Dose: 20 mg Vital Signs - 8 hr 05/10/18 12:03 Pulse Rate 78 Respiratory 14 Rate O2 Sat by Pulse 93 Oximetry Oxygen Devices in Use Now: None Appearance: appears anxious, respirations slightly labored, calms easily Eyes: No Scleral Icterus Ears/Nose/Mouth/Throat: Clear Oropharnyx, Mucous Membranes Moist Neck: NL Appearance and Movements; NL JVP, Trachea Midline Respiratory: Symmetrical Chest Expansion and Respiratory Effort, Clear to Auscultation, - - diminshed in the bases bilat Cardiovascular: NL Sounds; No Murmurs; No JVD, No Edema Abdominal: NL Sounds; No Tenderness; No Distention Extremities: No Clubbing, Cyanosis, - - left arm with edema(chronic), radial pulse +2 bilat Skin: No Rash or Ulcers Neurological: Alert and Oriented x 3 Nutrition: Taking PO's Result Diagrams: 05/11/18 06:49 05/11/18 06:49 Microbiology and Other Data: Microbiology 05/08/18 19:00 Influenza Types A,B Antigen - Final Nasopharyngeal Specimen received for Influenza A/B Molecular testing Assess/Plan/Problems-Billing Assessment: Ms. Traylor is a 62 y.o female with a PMHX significant for Diastolic chf , Hodgkin's lymphoma, CAD, COPD, afib and left breast mass found on CT 03/2018. who presented to the ER with shortness of breath, cough and fatigue. Found to have an abnormal chest xray with clinical concern for HCAP. - Patient Problems (1) HCAP (healthcare-associated pneumonia) Current Visit: Yes Status: Acute Code(s): J18.9 - PNEUMONIA, UNSPECIFIED ORGANISM SNOMED Code(s): 053595753 Comment: -Agree with Aztreonam and Vancomycin -(-) Influenza A&B -Blood cultures - no growth 1 day -Will send for S. pneumoniae and Legionella urine Ag- negative -conitnue Duonebs to q4H ATC while awake and change PRN frequency of Albuterol HFA to q2H -Given improving leukocytosis since admission with pleural effusion and increasing R. sided consolidation on CXR, despite elevated D-dimer, will hold off on CTA of chest as it does clinically appear to be HCAP; especially concerning given hx of breast mass and history of HD- patient continues to be short of breath- but feels it is improved slightly -consulted Dr. Ceja - pending (2) COPD (chronic obstructive pulmonary disease) Current Visit: Yes Status: Acute Code(s): J44.9 - CHRONIC OBSTRUCTIVE PULMONARY DISEASE, UNSPECIFIED SNOMED Code(s): 87551739 Comment: -mild exacerbation -continue nebs and inhalers (3) Anxiety Current Visit: No Status: Acute Code(s): F41.9 - ANXIETY DISORDER, UNSPECIFIED SNOMED Code(s): 04266540 Comment: - Will DC klonopin given hypotension - BP reading have improved - will consider PRN xanax if anxious (4) Breast mass Current Visit: No Status: Acute Code(s): N63.0 - UNSPECIFIED LUMP IN UNSPECIFIED BREAST SNOMED Code(s): 15967369 Comment: -Left; Spoke with Dr. Coppola - recommended - ultrasound guided bx or bx with Dr. Valverde from pathology -Left breast exam performed- left breast tissue dense unable to palp. mass- will need ultrasound guided needle bx. (5) CHF (congestive heart failure) Current Visit: No Status: Acute Code(s): I50.9 - HEART FAILURE, UNSPECIFIED SNOMED Code(s): 97642711 Comment: -Acute on Chronic diastolic heart failure continue metoprolol and lasix - patient was on ACEI and ARB but was d/c'd last admission d/t low BP may need to consider adding when BP improves EF on 04/06/18 was 45-50 % (6) History of Hodgkin's lymphoma Current Visit: No Status: Chronic Code(s): Z85.71 - PERSONAL HISTORY OF HODGKIN LYMPHOMA SNOMED Code(s): 024248399 Comment: stable -with chronic R loculated pleural effusion, residual R hand neuropathy and left arm lymphedema. (7) DVT prophylaxis Current Visit: No Status: Acute Code(s): KKE2553 - SNOMED Code(s): 163678851 Comment: -On Rivaroxaban (8) Full code status Current Visit: No Status: Acute Code(s): Z78.9 - OTHER SPECIFIED HEALTH STATUS SNOMED Code(s): 302476613 Status and Disposition: -For PT eval
[2018-05-10] MEDS: Rivaroxaban TAB(*) 20 MG TAB PO SCH (22:05)
--- NOTE | 2018-05-10 22:40 | CONS ---
PULMONARY CONSULTATION REPORT: DATE OF CONSULT: 05/10/18 CONSULTATION REQUESTED BY: Dr. Delacruz. REASON FOR CONSULT: Evaluation of pneumonia. HISTORY OF PRESENT ILLNESS: The patient is a 62-year-old female with history of Hodgkin's lymphoma diagnosed in 1979, status post chemotherapy and radiation , loculated right pleural effusion diagnosed in 2011, status post VATS with decortication of adhesions, cultures at that time did not reveal any infection, she was noted to have a few mesothelial cells, negative for malignant cells. Her chest x-rays showed improvement post procedure. She also has history of chronic lymphedema of the right upper extremity secondary to radiation, history of cellulitis of the right arm for which she was hospitalized, at which time she had atrial fibrillation with rapid ventricular response. The patient was found to have recurrence of the loculated pleural effusion again on the right side in March 2013, underwent thoracentesis and only small amounts of gelatinous fluid was withdrawn at that time with negative cultures and negative malignant cells. The patient subsequently was lost to followup. She was hospitalized a few days ago, at which time she was treated for acute CHF exacerbation. She was discharged on 05/06/18. She felt better for a couple of days, started having worsening shortness of breath and significant fatigue and malaise. The patient also reports 1 day history of tears, did not check for her temperatures. The patient also reports chest tightness and difficulty taking a deep breath. She also reports wheezing. She does have history of COPD and is on inhalers. The patient reports no benefit from nebulizers. She reports relief from ProAir rescue inhaler. The patient was also found to have an enhancing mass on CT noted in her left breast. She was to have outpatient evaluation and mammogram, which she has not done yet. Dr. Chirinos is her primary care physician. Pulmonary consultation was requested for evaluation of pneumonia and her COPD in the setting of prior lymphoma and loculated pleural effusion. The patient was seen and examined at bedside. The patient reports slight improvement in her shortness of breath. Denies significant cough or sputum production. The patient reports that she is having significant malaise. Denies nausea, vomiting , or abdominal pain. She does report a history of diarrhea for the past few days. She reports significant weight loss from recent diuresis. She does have improvement in lower extremity swelling. Further evaluation in the emergency room revealed elevated white count at 16.5. She was also found to be hyponatremic with sodium of 129. Her lactic acid is 1.7 on admission, which normalized on repeat lab. Her CRP is elevated at 240. She was not found to be hypoxemic. She was found to have slight worsening of the loculated pleural effusion on the right side and evidence of right basilar infiltrate. The patient was started on broad-spectrum antibiotics for healthcare-associated pneumonia. She is currently on aztreonam and vancomycin. Her atrial fibrillation is rate controlled at this time. PAST MEDICAL HISTORY: As stated above with: 1. Hodgkin's lymphoma with recurrence in 1987 and 1990. 2. COPD. 3. Pulmonary hypertension. 4. Coronary artery disease. 5. Diastolic CHF. 6. Atrial fibrillation and atrial flutter. 7. Hypothyroidism. 8. Splenectomy. 9. Appendectomy. 10. Status post VATS in 2011. 11. Enhancing breast mass noted on CT scan from 04/06/18. MEDICATIONS: 1. Albuterol. 2. Calcium, magnesium, vitamin D3 supplements. 3. Clotrimazole. 4. Lactobacillus. 5. [place]-3 fatty acid. 6. Ranitidine. 7. Resveratrol. 8. Coenzyme Q. 9. Vitamin B complex. 10. Tylenol. 11. Ascorbic acid. 12. Cholecalciferol. 13. Clonazepam. 14. Tikosyn. 15. Furosemide. 16. Levothyroxine. 17. Metoprolol. 18. Potassium. 19. Rivaroxaban. ALLERGIES: SOTALOL, CLINDAMYCIN, DRONEDARONE, LEVOFLOXACIN, PENICILLINS. FAMILY HISTORY: The patient's mother at 80. Dad at 56 from throat cancer. SOCIAL HISTORY: Former smoker, quit 10 years ago. No alcohol or drug abuse. REVIEW OF SYSTEMS: All 14 systems reviewed and as per HPI. PHYSICAL EXAM: The patient in bed, in no apparent distress. Vital Signs: Temperature 97.5, pulse 84 beats per minute, respiratory rate 18 per minute, O2 sat 97% on room air, blood pressure 116/69. HEENT: Pupils equal, reactive to light. Mucous membranes moist. Lungs: Distant breath sounds present, scattered wheeze present. Cardiovascular: S1, S2 present, regular. Abdomen: Soft, nontender, nondistended. Bowel sounds present. Extremities: Normal range of motion. Skin: No rash. Neuro: Alert, awake, oriented x3. No focal deficits. DIAGNOSTIC STUDIES/LAB DATA: WBC count 16.7, hemoglobin 13.7, hematocrit 42, platelet count 233. Sodium 127, potassium 4.1, chloride 92, bicarb 29, BUN 20, creatinine 0.63. Lactic acid 1.7. BNP 813. Procalcitonin 0.5. TSH 4.27, free T4 of 1.15. Influenza A and B negative. Legionella strep pneumo antigen negative. Blood culture is negative to date. Chest x-ray done on 05/08/18 was personally reviewed by me - evidence of multiloculated pleural effusion with fluid in right major fissure, evidence of consolidation in the right base along with pleural effusion, small effusion on the left side also noted. CT scan of the chest from 04/06/18 was also personally reviewed by me. Evidence of linear scarring in right upper lobe consistent across the mediastinum, consistent with scar tissue from radiation. Evidence of multiloculated pleural effusion layering against the right chest and bilateral pleural effusions at the bases along with mild atelectasis and volume loss of right lung. IMPRESSION AND RECOMMENDATIONS: 62-year-old female with history of Hodgkin's lymphoma with recurrence x2. She was treated with chemo and radiation in the past, history of multiloculated right pleural effusion, prior smoking history with chronic obstructive pulmonary disease, admitted with worsening shortness of breath, found to have pneumonia and acute chronic obstructive pulmonary disease exacerbation. The patient is improving slowly. She does have wheezing and rhonchi on auscultation. Agree with current management for pneumonia. Continue with current antibiotics. The pleural effusion appears to be slightly worse, unclear if it is infection on top of the fluid but has always chronically been there. Will monitor for response to antibiotics. If she does not improve, then will need thoracentesis for diagnostic purposes. Fatigue, likely from underlying infection. Continue with bronchodilators. Thank you for allowing me to participate in the care of your patient. Will follow up with you. [id number]/[facility] #: [id number] SHRAVAN
[2018-05-10] MEDS: clonazePAM TAB(*) 1 MG PO SCH (23:24)
[2018-05-11] MEDS: Aztreonam (*) 1 GM in NS 0.9% 100 ML* 100 ML IVPB SCH ×2 (03:46→12:00)
[2018-05-11] MEDS: Albuterol HFA INHALER* 8 gm MDI INH PRN ×3 (04:54→23:14)
[2018-05-11 07:00] LABS: ABS Basophils 0 10^3/ul (0-0.2); ABS Eosinophils 0 10^3/ul (0-0.6); ABS Lymphocytes 0.4 10^3/ul (1.0-4.8); ABS Monocytes 1.2 10^3/ul (0-0.8); ABS Neutrophils 8.7 10^3/ul (1.5-7.7); ABS Nucleated RBC 0 10^3/ul; Eosinophil % 0.2 % (0-6); Hematocrit 42 % (35-47); Hemoglobin 13.9 g/dl (12.0-16.0); Mean Corpuscular HGB Conc 33 g/dl (31-36); Mean Corpuscular Hemoglobin 29 pg (27-31); Mean Corpuscular Volume 87 fL (80-97); Mean Platelet Volume 7.7 um3 (7.4-10.4); Nucleated Red Blood Cells % 0.1; Platelet Count 332 10^3/ul (150-450); Red Blood Count 4.87 10^6/ul (4.00-5.40); Red Cell Distribution Width 16 % (10.5-15); White Blood Count 10.4 10^3/ul (3.5-10.8)
[2018-05-11 07:16] LABS: EGFR Non-African American 117.3 (>60)
[2018-05-11] MEDS: Vancomycin(*) 1,000 MG in NS 0.9% 250 ML* 250 ML IVPB SCH ×3 (09:15→23:05)
[2018-05-11] MEDS: Ascorbic Acid TAB* 500 MG PO SCH (09:30)
[2018-05-11] MEDS: Lactobacillus Acidophilus* 1 TAB PO SCH ×2 (09:31→21:51)
[2018-05-11] MEDS: Cholecalciferol TAB* 400 UNIT PO SCH (09:31)
[2018-05-11] MEDS: Levothyroxine TAB* 75 MCG TAB PO SCH (09:31)
[2018-05-11] MEDS: Dofetilide CAP* 125 MCG PO SCH ×2 (09:31→21:51)
[2018-05-11] MEDS: Potassium Chlor TAB* 20 MEQ TAB.ER PO SCH (09:31)
[2018-05-11] MEDS: Metoprolol Tartrate TAB* 50 mg PO SCH ×2 (09:38→21:51)
[2018-05-11] MEDS: Furosemide TAB* 20 MG PO SCH (09:48)
[2018-05-11] MEDS ORDERED: LORazepam TAB(*) 0.5 MG PO PRN (13:16)
--- NOTE | 2018-05-11 16:06 | PN ---
Subjective Date of Service: 05/11/18 Interval History: Patient is feeling improved today. Patient had an episodes overnight where she was found to be hallucinating and has been having intermittent episodes of agitation and sleepiness throughout the day. Patient has been able to ambulate without significant SOB. Patient denies F/C, Cough, CP, N/V, dizziness, abdominal pain, dysuria, or other pain. Patient has been having long periods of lucidity in between episodes of agitation. Family History: Unchanged from Admission Social History: Unchanged from Admission Past Medical History: Unchanged from Admission Objective Active Medications: Acetaminophen (Tylenol Tab*) 650 mg PO Q6H PRN PRN Reason: FEVER/PAIN Albuterol (Ventolin Hfa Inhaler*) 2 puff INH Q2H PRN PRN Reason: SOB/WHEEZING Last Admin: 05/11/18 11:14 Dose: 2 puff Albuterol/Ipratropium (Duoneb (Albuterol 2.5 Mg/Ipratropium 0.5 Mg)) 1 neb INH [id number] AWAKE PRN PRN Reason: SOB/WHEEZING Ascorbic Acid (Vitamin C Tab*) 1,000 mg PO DAILY [facility] Last Admin: 05/11/18 09:30 Dose: 1,000 mg Buspirone HCl (Buspar Tab*) 5 mg PO TID PRN PRN Reason: ANXIETY Cholecalciferol (Vitamin D Tab*) 400 unit PO DAILY [facility] Last Admin: 05/11/18 09:31 Dose: 400 unit Clonazepam (Klonopin Tab(*)) 1 mg PO 2300 [facility] Last Admin: 05/10/18 23:24 Dose: 1 mg Dofetilide (Tikosyn Cap*) 125 mcg PO 1000,2200 [facility] Last Admin: 05/11/18 09:31 Dose: 125 mcg Furosemide (Lasix Tab*) 20 mg PO MOWEFR [facility] Last Admin: 05/11/18 09:48 Dose: 20 mg Vancomycin HCl 1,000 mg/ (Sodium Chloride) 250 mls @ 166.667 mls/hr IVPB Q8H [facility] Last Admin: 05/11/18 09:15 Dose: 166.667 mls/hr Aztreonam 1 gm/ Sodium (Chloride) 50 mls @ 200 mls/hr IVPB Q8H [facility] Lactobacillus Rhamnosus (Lactobacillus Acidophilus*) 1 tab PO BID [facility] Last Admin: 05/11/18 09:31 Dose: 1 tab Levothyroxine Sodium (Synthroid Tab*) 75 mcg PO DAILY@0730 [facility] Last Admin: 05/11/18 09:31 Dose: 75 mcg Lorazepam (Ativan Tab(*)) 0.5 mg PO Q4H PRN PRN Reason: ANXIETY Metoprolol Tartrate (Lopressor Tab*) 50 mg PO BID [facility] Last Admin: 05/11/18 09:38 Dose: 50 mg Pharmacy Consult (Vancomycin Per Pharmacy*) 1 note FOLLOW UP .VANC PER PHARMACY [facility] Potassium Chloride (Klor Con Er Tab*) 20 meq PO DAILY [facility] Last Admin: 05/11/18 09:31 Dose: 20 meq Rivaroxaban (Xarelto(*)) 20 mg PO BEDTIME [facility] Last Admin: 05/10/18 22:05 Dose: 20 mg Vital Signs - 8 hr 05/11/18 05/11/18 05/11/18 08:00 11:07 11:19 Temperature 97.1 F 97.4 F Pulse Rate 77 93 95 Respiratory 20 21 18 Rate Blood Pressure 101/64 111/62 (mmHg) O2 Sat by Pulse 98 97 98 Oximetry Oxygen Devices in Use Now: Nasal Cannula Appearance: Patient is a 62yo female who appears stated age and is sitting in the bed in [facility]. Eyes: No Scleral Icterus, PERRLA Ears/Nose/Mouth/Throat: NL Teeth, Lips, Gums, Clear Oropharnyx, Mucous Membranes Moist Neck: NL Appearance and Movements; NL JVP, Trachea Midline Respiratory: Symmetrical Chest Expansion and Respiratory Effort, - - Diminished throughout. Cardiovascular: NL Sounds; No Murmurs; No JVD, RRR, No Edema Abdominal: NL Sounds; No Tenderness; No Distention, No Hepatosplenomegaly Lymphatic: No Cervical Adenopathy Extremities: No Edema, No Clubbing, Cyanosis Skin: No Rash or Ulcers, No Nodules or Sclerosis Neurological: Alert and Oriented x 3, NL Sensation, NL Muscle Strength and Tone , - - CN II-XII intact. Result Diagrams: 05/11/18 06:49 05/11/18 06:49 Microbiology and Other Data: Microbiology 05/08/18 19:00 Influenza Types A,B Antigen - Final Nasopharyngeal Specimen received for Influenza A/B Molecular testing Assess/Plan/Problems-Billing Assessment: Ms. Traylor is a 62 y.o female with a PMHX significant for Diastolic chf , Hodgkin's lymphoma, CAD, COPD, afib and left breast mass found on CT 03/2018. who presented to the ER with shortness of breath, cough and fatigue. Found to have an abnormal chest xray with clinical concern for HCAP. - Patient Problems (1) HCAP (healthcare-associated pneumonia) Current Visit: Yes Status: Acute Code(s): J18.9 - PNEUMONIA, UNSPECIFIED ORGANISM SNOMED Code(s): 144181444 Comment: - Continue Aztreonam and Vancomycin - Negative Influenza A&B - Blood cultures - no growth yet. - Negative Urine antigens - Continue Duonebs to q4H ATC while awake - Appreciate Pulmonology Input - Low probability of PE due to anticoagulation on admission and likely alternative explanation. (2) COPD (chronic obstructive pulmonary disease) Current Visit: Yes Status: Acute Code(s): J44.9 - CHRONIC OBSTRUCTIVE PULMONARY DISEASE, UNSPECIFIED SNOMED Code(s): 71844718 Comment: - Mild exacerbation - Continue nebs and inhalers - No current wheezing, no indication at this time for steroids. (3) History of Hodgkin's lymphoma Current Visit: No Status: Chronic Code(s): Z85.71 - PERSONAL HISTORY OF HODGKIN LYMPHOMA SNOMED Code(s): 967870578 Comment: - Not current issue. - With chronic R loculated pleural effusion, residual R hand neuropathy and left arm lymphedema as a complication of treatment. (4) Acute respiratory failure with hypoxia Current Visit: No Status: Acute Priority: High Code(s): J96.01 - ACUTE RESPIRATORY FAILURE WITH HYPOXIA SNOMED Code(s): 32008654 Comment: - Patient continues to improve clinically - Persistent need for O2 intermittently - Continue scheduled nebulizers. (5) Anxiety Current Visit: No Status: Acute Code(s): F41.9 - ANXIETY DISORDER, UNSPECIFIED SNOMED Code(s): 71001217 Comment: - Continue Klonipin nightly - PRN ativan low dose - Buspar PRN (6) Atrial fibrillation Current Visit: No Status: Acute Code(s): I48.91 - UNSPECIFIED ATRIAL FIBRILLATION SNOMED Code(s): 30341701 Comment: -Continue Rivaroxaban -Rate controlled on Metoprolol - Continue Tikosyn (7) Breast mass Current Visit: No Status: Acute Code(s): N63.0 - UNSPECIFIED LUMP IN UNSPECIFIED BREAST SNOMED Code(s): 20192990 Comment: - Mass, will need to follow up outpatient with mammogram or ultrasound with possible subsequent biopsy. (8) Delirium Current Visit: Yes Status: Acute Code(s): R41.0 - DISORIENTATION, UNSPECIFIED SNOMED Code(s): 5689126 Comment: - New onset episodes of confusion with fluctuating course, hallucinations and poor sleep. - Likely hospital delirium. Continue with ativan and Clonazepam for sleep as well as supportive care. (9) DVT prophylaxis Current Visit: No Status: Acute Code(s): AKH4010 - SNOMED Code(s): 796492190 Comment: -On Rivaroxaban (10) Full code status Current Visit: No Status: Acute Code(s): Z78.9 - OTHER SPECIFIED HEALTH STATUS SNOMED Code(s): 484622222 Status and Disposition: Inpatient. Hopeful discharge to [facility].
--- NOTE | 2018-05-11 16:51 | PN ---
Progress Note - Progress Note Date of Service: 05/11/18 - Pulm f/u note Note: Pt seen and examined at bedside. Pt was noted to have hallucinations last night. She is irritable this am. Denies SOB. Reports fatigue Active Medications Generic Name Dose Route Start Last Admin Trade Name Freq PRN Reason Stop Dose Admin Acetaminophen 650 mg 05/08/18 21:13 Tylenol Tab* PO Q6H PRN FEVER/PAIN Albuterol 2 puff 05/09/18 16:41 05/11/18 11:14 Ventolin Hfa Inhaler* INH 2 puff Q2H PRN Administration SOB/WHEEZING Albuterol/Ipratropium 1 neb 05/10/18 13:09 Duoneb (Albuterol 2.5 Mg/Ipratropium 0.5 Mg) INH [id number] AWAKE PRN SOB/WHEEZING Ascorbic Acid 1,000 mg 05/09/18 09:00 05/11/18 09:30 Vitamin C Tab* PO 1,000 mg DAILY [facility] Administration Buspirone HCl 5 mg 05/11/18 10:47 Buspar Tab* PO TID PRN ANXIETY Cholecalciferol 400 unit 05/09/18 09:00 05/11/18 09:31 Vitamin D Tab* PO 400 unit DAILY [facility] Administration Clonazepam 1 mg 05/10/18 23:00 05/10/18 23:24 Klonopin Tab(*) PO 1 mg 2300 [facility] Administration Dofetilide 125 mcg 05/10/18 10:00 05/11/18 09:31 Tikosyn Cap* PO 125 mcg 1000,2200 [facility] Administration Furosemide 20 mg 05/09/18 09:00 05/11/18 09:48 Lasix Tab* PO 20 mg MOWEFR [facility] Administration Vancomycin HCl 1,000 mg/ 250 mls @ 166.667 mls/hr 05/09/18 08:00 05/11/18 16: 21 Sodium Chloride IVPB 166.667 mls/hr Q8H [facility] Administration Aztreonam 1 gm/ Sodium 50 mls @ 200 mls/hr 05/11/18 20:00 Chloride IVPB Q8H [facility] Lactobacillus Rhamnosus 1 tab 05/09/18 09:00 05/11/18 09:31 Lactobacillus Acidophilus* PO 1 tab BID [facility] Administration Levothyroxine Sodium 75 mcg 05/09/18 07:30 05/11/18 09:31 Synthroid Tab* PO 75 mcg DAILY@0730 [facility] Administration Lorazepam 0.5 mg 05/11/18 13:16 05/11/18 16:17 Ativan Tab(*) PO 0.5 mg Q4H PRN Administration ANXIETY Metoprolol Tartrate 50 mg 05/08/18 23:30 05/11/18 09:38 Lopressor Tab* PO 50 mg BID [facility] Administration Pharmacy Consult 1 note 05/08/18 22:00 Vancomycin Per Pharmacy* FOLLOW UP .VANC PER PHARMACY [facility] Potassium Chloride 20 meq 05/09/18 09:00 05/11/18 09:31 Klor Con Er Tab* PO 20 meq DAILY [facility] Administration Rivaroxaban 20 mg 05/09/18 21:00 05/10/18 22:05 Xarelto(*) PO 20 mg BEDTIME [facility] Administration Vital Signs Temp Pulse Resp BP Pulse Ox 97.4 F 95 18 111/62 98 05/11/18 11:07 05/11/18 11:19 05/11/18 16:17 05/11/18 11:07 05/11/18 11:19 O/E: Pt in NAD HEENT: PERRLA, No JVD Lungs: Distant breath sounds+, no wheeze CVS: S1, S2+ Abd: Soft, BS+ Ext: No edema Skin: No rash Laboratory Results - last 24 hr 05/11/18 05/11/18 05/11/18 06:49 06:49 06:49 WBC 10.4 RBC 4.87 Hgb 13.9 Hct 42 MCV 87 MCH 29 MCHC 33 RDW 16 H Plt Count 332 MPV 7.7 Neut % (Auto) 83.7 H Lymph % (Auto) 4.0 L Piute % (Auto) 11.7 H Eos % (Auto) 0.2 Baso % (Auto) 0.4 Absolute Neuts (auto) 8.7 H Absolute Lymphs (auto) 0.4 L Absolute Monos (auto) 1.2 H Absolute Eos (auto) 0 Absolute Basos (auto) 0 Absolute Nucleated RBC 0 Nucleated RBC % 0.1 Sodium 129 L Potassium 4.3 Chloride 95 L Carbon Dioxide 26 Anion Gap 8 BUN 19 Creatinine 0.53 Est GFR ( Amer) 141.9 Est GFR (Non-Af Amer) 117.3 BUN/Creatinine Ratio 35.8 H Glucose 114 H Calcium 8.7 Procalcitonin 0.2 62 y.o female with a PMHX significant for Diastolic CHF , Hodgkin's lymphoma, CAD, COPD, Afib and left breast mass found on CT 03/2018 presented for evaluation of shortness of breath, cough and fatigue. Pt being treated for HCAP. Pt appears to be irritable today, had episode of hallucination last night SOB is improved Has ambulated without any concerns with SOB Requesting to leave O2 on c/w abx
[2018-05-11] MEDS: Aztreonam (*) 1 GM in NS 0.9% 50 ML* 50 ML IVPB SCH (21:50)
[2018-05-11] MEDS: Rivaroxaban TAB(*) 20 MG TAB PO SCH (21:51)
[2018-05-11] MEDS: clonazePAM TAB(*) 1 MG PO SCH (23:05)
[2018-05-12] MEDS: Aztreonam (*) 1 GM in NS 0.9% 50 ML* 50 ML IVPB SCH ×3 (03:36→18:02)
[2018-05-12 07:38] LABS: ABS Basophils 0.1 10^3/ul (0-0.2); ABS Eosinophils 0 10^3/ul (0-0.6); ABS Lymphocytes 0.4 10^3/ul (1.0-4.8); ABS Monocytes 0.8 10^3/ul (0-0.8); ABS Nucleated RBC 0 10^3/ul; Eosinophil % 0.4 % (0-6); Hematocrit 42 % (35-47); Hemoglobin 13.7 g/dl (12.0-16.0); Lymphocyte % 5.1 % (25-47); Mean Corpuscular HGB Conc 32 g/dl (31-36); Mean Corpuscular Hemoglobin 29 pg (27-31); Mean Corpuscular Volume 88 fL (80-97); Mean Platelet Volume 8.1 um3 (7.4-10.4); Nucleated Red Blood Cells % 0.1; Platelet Count 352 10^3/ul (150-450); Red Blood Count 4.79 10^6/ul (4.00-5.40); Red Cell Distribution Width 17 % (10.5-15); White Blood Count 7.3 10^3/ul (3.5-10.8)
[2018-05-12 07:48] LABS: EGFR Non-African American 128.4 (>60)
[2018-05-12 07:49] LABS: EGFR Non-African American 128.4 (>60)
[2018-05-12 07:57] LABS: Vancomycin Trough 25.6 mcg/mL
[2018-05-12] MEDS: Levothyroxine TAB* 75 MCG TAB PO SCH (08:13)
[2018-05-12] MEDS: Metoprolol Tartrate TAB* 50 mg PO SCH ×2 (08:38→22:02)
[2018-05-12] MEDS: Potassium Chlor TAB* 20 MEQ TAB.ER PO SCH (08:38)
[2018-05-12] MEDS: Cholecalciferol TAB* 400 UNIT PO SCH (08:38)
[2018-05-12] MEDS: Ascorbic Acid TAB* 500 MG PO SCH (08:39)
[2018-05-12] MEDS: Lactobacillus Acidophilus* 1 TAB PO SCH ×2 (08:39→22:02)
[2018-05-12] MEDS ORDERED: Magnesium Sulfate 2 GM IV* 2 GM/50 ML BAG IVPB ONE (08:42)
[2018-05-12] MEDS: DOXYcycline IV* 100 MG in NS 0.9% 250 ML* 250 ML IVPB SCH ×2 (09:45→21:58)
[2018-05-12] MEDS: Dofetilide CAP* 125 MCG PO SCH ×2 (10:14→22:02)
--- NOTE | 2018-05-12 14:20 | PN ---
Subjective Date of Service: 05/12/18 Interval History: Patient is feeling well today. Moderate but improving SOB with walking. Patient is not ahving any more loose bowel movements. Patient denies F/C, N/V, abdominal pain, CP, dizziness, dysuria, headache, or other pain. Patient is amenable to discharge to rehab and is aware of the importance of follow up for her breast mass. Family History: Unchanged from Admission Social History: Unchanged from Admission Past Medical History: Unchanged from Admission Objective Active Medications: Acetaminophen (Tylenol Tab*) 650 mg PO Q6H PRN PRN Reason: FEVER/PAIN Albuterol (Ventolin Hfa Inhaler*) 2 puff INH Q2H PRN PRN Reason: SOB/WHEEZING Last Admin: 05/11/18 23:14 Dose: 2 puff Albuterol/Ipratropium (Duoneb (Albuterol 2.5 Mg/Ipratropium 0.5 Mg)) 1 neb INH [id number] AWAKE PRN PRN Reason: SOB/WHEEZING Ascorbic Acid (Vitamin C Tab*) 1,000 mg PO DAILY [facility] Last Admin: 05/12/18 08:39 Dose: Not Given Buspirone HCl (Buspar Tab*) 5 mg PO TID PRN PRN Reason: ANXIETY Cholecalciferol (Vitamin D Tab*) 400 unit PO DAILY [facility] Last Admin: 05/12/18 08:38 Dose: 400 unit Clonazepam (Klonopin Tab(*)) 1 mg PO 2300 [facility] Last Admin: 05/11/18 23:05 Dose: 1 mg Dofetilide (Tikosyn Cap*) 125 mcg PO 1000,2200 [facility] Last Admin: 05/12/18 10:14 Dose: 125 mcg Furosemide (Lasix Tab*) 20 mg PO MOWEFR [facility] Last Admin: 05/11/18 09:48 Dose: 20 mg Aztreonam 1 gm/ Sodium (Chloride) 50 mls @ 200 mls/hr IVPB Q8H [facility] Last Admin: 05/12/18 08:39 Dose: 200 mls/hr Doxycycline Hyclate 100 mg/ (Sodium Chloride) 250 mls @ 250 mls/hr IVPB Q12H [facility] Last Admin: 05/12/18 09:45 Dose: 250 mls/hr Lactobacillus Rhamnosus (Lactobacillus Acidophilus*) 1 tab PO BID [facility] Last Admin: 05/12/18 08:39 Dose: 1 tab Levothyroxine Sodium (Synthroid Tab*) 75 mcg PO DAILY@0730 [facility] Last Admin: 05/12/18 08:13 Dose: 75 mcg Lorazepam (Ativan Tab(*)) 0.5 mg PO Q12H PRN PRN Reason: ANXIETY Metoprolol Tartrate (Lopressor Tab*) 50 mg PO BID [facility] Last Admin: 05/12/18 08:38 Dose: 50 mg Potassium Chloride (Klor Con Er Tab*) 20 meq PO DAILY [facility] Last Admin: 05/12/18 08:38 Dose: 20 meq Rivaroxaban (Xarelto(*)) 20 mg PO BEDTIME [facility] Last Admin: 05/11/18 21:51 Dose: 20 mg Vital Signs - 8 hr 05/12/18 05/12/18 05/12/18 08:00 08:12 10:49 Temperature 98.0 F Pulse Rate 82 82 Respiratory 16 Rate Blood Pressure 104/65 104/65 (mmHg) O2 Sat by Pulse 100 100 96 Oximetry Oxygen Devices in Use Now: None Appearance: Patient is a 62yo female who appears stated age and is sitting in the bed in [facility]. Eyes: No Scleral Icterus, PERRLA Ears/Nose/Mouth/Throat: NL Teeth, Lips, Gums, Clear Oropharnyx, Mucous Membranes Moist Neck: NL Appearance and Movements; NL JVP, Trachea Midline Respiratory: Symmetrical Chest Expansion and Respiratory Effort, Clear to Auscultation, - - Diminished Cardiovascular: NL Sounds; No Murmurs; No JVD, RRR, No Edema Abdominal: NL Sounds; No Tenderness; No Distention, No Hepatosplenomegaly Lymphatic: No Cervical Adenopathy Extremities: No Edema, No Clubbing, Cyanosis, - - Stable lymphadema and mild LE edema. Skin: No Rash or Ulcers, No Nodules or Sclerosis Neurological: Alert and Oriented x 3, NL Sensation, NL Muscle Strength and Tone Result Diagrams: 05/12/18 06:49 05/12/18 06:50 Microbiology and Other Data: Microbiology 05/08/18 19:00 Influenza Types A,B Antigen - Final Nasopharyngeal Specimen received for Influenza A/B Molecular testing Assess/Plan/Problems-Billing Assessment: Ms. Traylor is a 62 y.o female with a PMHX significant for Diastolic chf , Hodgkin's lymphoma, CAD, COPD, afib and left breast mass found on CT 03/2018. who presented to the ER with shortness of breath, cough and fatigue. Found to have an abnormal chest xray with clinical concern for HCAP. - Patient Problems (1) HCAP (healthcare-associated pneumonia) Current Visit: Yes Status: Acute Code(s): J18.9 - PNEUMONIA, UNSPECIFIED ORGANISM SNOMED Code(s): 594986358 Comment: - Continue Aztreonam and change to Doxycycline - Hopeful discharge on Doxycycline - Negative Influenza A&B - Blood cultures - no growth yet. - Negative Urine antigens - Continue Duonebs to q4H ATC while awake - Appreciate Pulmonology Input - Low probability of PE due to anticoagulation on admission and likely alternative explanation. (2) COPD (chronic obstructive pulmonary disease) Current Visit: Yes Status: Acute Code(s): J44.9 - CHRONIC OBSTRUCTIVE PULMONARY DISEASE, UNSPECIFIED SNOMED Code(s): 90695178 Comment: - Mild exacerbation - Continue nebs and inhalers - No current wheezing, no indication at this time for steroids. (3) History of Hodgkin's lymphoma Current Visit: No Status: Chronic Code(s): Z85.71 - PERSONAL HISTORY OF HODGKIN LYMPHOMA SNOMED Code(s): 221026143 Comment: - Not current issue. - With chronic R loculated pleural effusion, residual R hand neuropathy and left arm lymphedema as a complication of treatment. (4) Acute respiratory failure with hypoxia Current Visit: No Status: Acute Priority: High Code(s): J96.01 - ACUTE RESPIRATORY FAILURE WITH HYPOXIA SNOMED Code(s): 80848293 Comment: - Due to Pneumonia - Patient continues to improve clinically - Persistent need for O2 intermittently with decreasing frequency - Continue scheduled nebulizers. (5) Anxiety Current Visit: No Status: Acute Code(s): F41.9 - ANXIETY DISORDER, UNSPECIFIED SNOMED Code(s): 79316326 Comment: - Continue Klonipin nightly - PRN ativan low dose - Buspar PRN - Patient feels as if the nebulizers are contributing significantly. (6) Atrial fibrillation Current Visit: No Status: Acute Code(s): I48.91 - UNSPECIFIED ATRIAL FIBRILLATION SNOMED Code(s): 32361356 Comment: -Continue Rivaroxaban -Rate controlled on Metoprolol - Continue Tikosyn (7) Breast mass Current Visit: No Status: Acute Code(s): N63.0 - UNSPECIFIED LUMP IN UNSPECIFIED BREAST SNOMED Code(s): 65607023 Comment: - Mass, will need to follow up outpatient with mammogram or ultrasound with possible subsequent biopsy. - Discussed with PCP and stressed importance to patient. (8) Delirium Current Visit: Yes Status: Acute Code(s): R41.0 - DISORIENTATION, UNSPECIFIED SNOMED Code(s): 2168497 Comment: - New onset episodes of confusion with fluctuating course, hallucinations and poor sleep. - Likely hospital delirium. Continue with ativan and Clonazepam for sleep as well as supportive care. - Has resolved with better sleep. (9) DVT prophylaxis Current Visit: No Status: Acute Code(s): YFG1854 - SNOMED Code(s): 882280023 Comment: -On Rivaroxaban (10) Full code status Current Visit: No Status: Acute Code(s): Z78.9 - OTHER SPECIFIED HEALTH STATUS SNOMED Code(s): 749273314 Status and Disposition: Inpatient. Hopeful discharge to [facility] pending insurance approval.
[2018-05-12] MEDS: LORazepam TAB(*) 0.5 MG PO PRN (15:01)
[2018-05-12] MEDS: busPIRone TAB* 5 MG PO PRN ×2 (22:02→23:16)
[2018-05-12] MEDS: Rivaroxaban TAB(*) 20 MG TAB PO SCH (22:02)
[2018-05-12] MEDS: clonazePAM TAB(*) 1 MG PO SCH (23:16)
[2018-05-13] MEDS: Aztreonam (*) 1 GM in NS 0.9% 50 ML* 50 ML IVPB SCH ×2 (00:34→08:11)
[2018-05-13] MEDS: Levothyroxine TAB* 75 MCG TAB PO SCH (05:28)
[2018-05-13] MEDS: Lactobacillus Acidophilus* 1 TAB PO SCH ×2 (08:17→21:12)
[2018-05-13] MEDS: Dofetilide CAP* 125 MCG PO SCH ×2 (08:17→21:11)
[2018-05-13] MEDS: Metoprolol Tartrate TAB* 50 mg PO SCH ×2 (08:17→21:13)
[2018-05-13] MEDS: Potassium Chlor TAB* 20 MEQ TAB.ER PO SCH (08:17)
[2018-05-13] MEDS: Cholecalciferol TAB* 400 UNIT PO SCH (08:17)
[2018-05-13] MEDS: Ascorbic Acid TAB* 500 MG PO SCH (08:18)
[2018-05-13] MEDS: DOXYcycline CAP(*) 100 MG PO SCH ×2 (08:22→21:11)
[2018-05-13] MEDS: Furosemide TAB* 20 MG PO SCH (08:22)
[2018-05-13] MEDS ORDERED: Magnesium Oxide TAB* 400 MG PO SCH (09:00)
--- NOTE | 2018-05-13 09:20 | RAD ---
Indication: Cardiac disease. Congestive heart failure. COPD. Comparison: No relevant prior exams available on the [facility] PACS for comparison. Technique: Upright AP 0830 hours Report: Near complete opacification of the RIGHT lung with interval worsening. Moderately large RIGHT and moderate LEFT dependent pleural effusions with proportional atelectasis. Negative for cardiomegaly. No gross abnormality of the central pulmonary vasculature. IMPRESSION: #. Interval worsening of RIGHT lung consolidation most suspicious for pneumonia. #. No significant change in moderately large RIGHT and moderate LEFT pleural effusions. #. No gross abnormality of the central pulmonary vasculature to strongly favor pulmonary edema.
[2018-05-13 10:04] LABS: EGFR Non-African American 125.4 (>60)
[2018-05-13] MEDS: Magnesium Oxide TAB* 400 MG PO SCH (13:04)
--- NOTE | 2018-05-13 13:58 | PN ---
Subjective Date of Service: 05/13/18 Interval History: Patient is feeling as she did yesterday. Intermittently SOB without wheezing or hypoxia. Patient is using oxygen intermittently for comfort. Patient denies dizziness, CP, SOB, F/C, N/V, abdominal pain, diarrhea, or other pain. Patient had an over 6 second pause and had no symptoms. Family History: Unchanged from Admission Social History: Unchanged from Admission Past Medical History: Unchanged from Admission Objective Active Medications: Acetaminophen (Tylenol Tab*) 650 mg PO Q6H PRN PRN Reason: FEVER/PAIN Albuterol (Ventolin Hfa Inhaler*) 2 puff INH Q2H PRN PRN Reason: SOB/WHEEZING Last Admin: 05/11/18 23:14 Dose: 2 puff Albuterol/Ipratropium (Duoneb (Albuterol 2.5 Mg/Ipratropium 0.5 Mg)) 1 neb INH [id number] AWAKE PRN PRN Reason: SOB/WHEEZING Ascorbic Acid (Vitamin C Tab*) 1,000 mg PO DAILY [facility] Last Admin: 05/13/18 08:18 Dose: 1,000 mg Buspirone HCl (Buspar Tab*) 5 mg PO TID PRN PRN Reason: ANXIETY Last Admin: 05/12/18 23:16 Dose: 5 mg Cholecalciferol (Vitamin D Tab*) 400 unit PO DAILY [facility] Last Admin: 05/13/18 08:17 Dose: 400 unit Clonazepam (Klonopin Tab(*)) 1 mg PO 2300 [facility] Last Admin: 05/12/18 23:16 Dose: 1 mg Dofetilide (Tikosyn Cap*) 125 mcg PO 1000,2200 [facility] Last Admin: 05/13/18 08:17 Dose: 125 mcg Doxycycline Hyclate (Vibramycin Cap(*)) 100 mg PO BID [facility] Last Admin: 05/13/18 08:22 Dose: 100 mg Enoxaparin Sodium (Lovenox(*)) 80 mg SUBCUT Q12H [facility] Stop: 05/15/18 09:01 Furosemide (Lasix Tab*) 40 mg PO DAILY [facility] Furosemide (Lasix Iv*) 40 mg IV ONCE ONE Stop: 05/13/18 13:53 Magnesium Sulfate 3 gm/ Sodium (Chloride) 106 mls @ 53 mls/hr IVPB ONCE ONE Stop: 05/13/18 14:24 Lactobacillus Rhamnosus (Lactobacillus Acidophilus*) 1 tab PO BID [facility] Last Admin: 05/13/18 08:17 Dose: 1 tab Levothyroxine Sodium (Synthroid Tab*) 75 mcg PO DAILY@0600 [facility] Last Admin: 05/13/18 05:28 Dose: 75 mcg Lorazepam (Ativan Tab(*)) 0.5 mg PO Q12H PRN PRN Reason: ANXIETY Last Admin: 05/12/18 15:01 Dose: 0.5 mg Magnesium Oxide (Magox 400 Tab*) 800 mg PO 1200 [facility] Last Admin: 05/13/18 13:04 Dose: 800 mg Metoprolol Tartrate (Lopressor Tab*) 25 mg PO BID [facility] Potassium Chloride (Klor Con Er Tab*) 20 meq PO DAILY [facility] Last Admin: 05/13/18 08:17 Dose: 20 meq Vital Signs - 8 hr 05/13/18 05/13/18 05/13/18 07:45 07:50 08:00 Temperature 97.8 F Pulse Rate 68 125 Respiratory 23 20 Rate Blood Pressure 143/95 114/101 (mmHg) O2 Sat by Pulse 99 100 Oximetry 05/13/18 08:06 Temperature Pulse Rate 126 Respiratory Rate Blood Pressure 122/78 (mmHg) O2 Sat by Pulse Oximetry Oxygen Devices in Use Now: Nasal Cannula Appearance: Patient is a 62yo female who appears stated age and is sitting in the bed in [facility]. Eyes: No Scleral Icterus, PERRLA Ears/Nose/Mouth/Throat: NL Teeth, Lips, Gums, Clear Oropharnyx, Mucous Membranes Moist Neck: NL Appearance and Movements; NL JVP, Trachea Midline Respiratory: Symmetrical Chest Expansion and Respiratory Effort, Clear to Auscultation, - - Diminshed. Cardiovascular: NL Sounds; No Murmurs; No JVD, RRR, No Edema Abdominal: NL Sounds; No Tenderness; No Distention, No Hepatosplenomegaly Lymphatic: No Cervical Adenopathy Extremities: - - 2+ edema in B/L LE. Lymphedema in RUE. Skin: No Rash or Ulcers Neurological: Alert and Oriented x 3, NL Sensation, NL Muscle Strength and Tone , - - CN II-XII intact. Result Diagrams: 05/12/18 06:49 05/13/18 09:30 Microbiology and Other Data: Microbiology 05/08/18 19:00 Influenza Types A,B Antigen - Final Nasopharyngeal Specimen received for Influenza A/B Molecular testing Assess/Plan/Problems-Billing Assessment: Ms. Traylor is a 62 y.o female with a PMHX significant for Diastolic chf , Hodgkin's lymphoma, CAD, COPD, afib and left breast mass found on CT 03/2018. who presented to the ER with shortness of breath, cough and fatigue. Found to have an abnormal chest xray with clinical concern for HCAP. - Patient Problems (1) Atrial fibrillation Current Visit: No Status: Acute Code(s): I48.91 - UNSPECIFIED ATRIAL FIBRILLATION SNOMED Code(s): 18096424 Comment: - Stop Rivaroxaban and start Lovenox until Wednesday Morning. - Continue Tikosyn - QTc 497. - Had sinus pause after episode of Afib with RVR - Tachy-Leonidas syndrome - Appreciate Cardiology consult. - Plan for pacemaker Wednesday - Decrease Metoprolol (2) HCAP (healthcare-associated pneumonia) Current Visit: Yes Status: Acute Code(s): J18.9 - PNEUMONIA, UNSPECIFIED ORGANISM SNOMED Code(s): 194999336 Comment: - Change to Doxycycline monotherapy to complete 7 day course. - Negative Influenza A&B - Blood cultures - no growth yet. - Negative Urine antigens - Continue Duonebs to q4H ATC while awake - Appreciate Pulmonology Input - Low probability of PE due to anticoagulation on admission and likely alternative explanation. (3) QT prolongation Current Visit: No Status: Acute Code(s): R94.31 - ABNORMAL ELECTROCARDIOGRAM [ECG] [EKG] SNOMED Code(s): 600638003 Comment: - QTc at 497 - Optimize electrolytes and Contiue Tikosyn at 125 BID. (4) COPD (chronic obstructive pulmonary disease) Current Visit: Yes Status: Acute Code(s): J44.9 - CHRONIC OBSTRUCTIVE PULMONARY DISEASE, UNSPECIFIED SNOMED Code(s): 43724252 Comment: - Mild exacerbation - Continue nebs and inhalers - No current wheezing, no indication at this time for steroids. (5) History of Hodgkin's lymphoma Current Visit: No Status: Chronic Code(s): Z85.71 - PERSONAL HISTORY OF HODGKIN LYMPHOMA SNOMED Code(s): 959658095 Comment: - Not current issue. - With chronic R loculated pleural effusion, residual R hand neuropathy and left arm lymphedema as a complication of treatment. (6) Acute respiratory failure with hypoxia Current Visit: No Status: Acute Priority: High Code(s): J96.01 - ACUTE RESPIRATORY FAILURE WITH HYPOXIA SNOMED Code(s): 24772886 Comment: - Due to Pneumonia - Patient continues to improve clinically - Persistent need for O2 intermittently with decreasing frequency - Continue scheduled nebulizers. (7) Anxiety Current Visit: No Status: Acute Code(s): F41.9 - ANXIETY DISORDER, UNSPECIFIED SNOMED Code(s): 70825752 Comment: - Continue Klonipin nightly - PRN ativan low dose - Buspar PRN - Patient feels as if the nebulizers are contributing significantly. (8) CHF (congestive heart failure) Current Visit: No Status: Acute Code(s): I50.9 - HEART FAILURE, UNSPECIFIED SNOMED Code(s): 94971036 Comment: - Acute on Chronic diastolic and Systolic heart failure - Increase Lasix for Edema, Monitor for hypokalemia - ACEI/ARB should be resumed when able. - EF on 04/06/18 was 45-50 %. Repeat Echo to assess for worsening valvular disease or wall motion abnormalities. (9) Breast mass Current Visit: No Status: Acute Code(s): N63.0 - UNSPECIFIED LUMP IN UNSPECIFIED BREAST SNOMED Code(s): 29566349 Comment: - Mass, will need to follow up outpatient with mammogram or ultrasound with possible subsequent biopsy. - Discussed with PCP and stressed importance to patient. (10) Delirium Current Visit: Yes Status: Acute Code(s): R41.0 - DISORIENTATION, UNSPECIFIED SNOMED Code(s): 5635855 Comment: - New onset episodes of confusion with fluctuating course, hallucinations and poor sleep. - Likely hospital delirium. Continue with ativan and Clonazepam for sleep as well as supportive care. - Has resolved with better sleep. (11) DVT prophylaxis Current Visit: No Status: Acute Code(s): ENW3737 - SNOMED Code(s): 915157489 Comment: -On Eliquis (12) Full code status Current Visit: No Status: Acute Code(s): Z78.9 - OTHER SPECIFIED HEALTH STATUS SNOMED Code(s): 983497141 Status and Disposition: Inpatient. Hopeful discharge to [facility] after Pacemaker.
[2018-05-13] MEDS: Magnesium Sulfate IV* 3 GM in NS 0.9% 100 ML* 100 ML IVPB ONE ×2 (14:17→14:34)
[2018-05-13] MEDS: Furosemide IV* 10 MG/ML VIAL (40 MG) IV ONE ×2 (14:17→14:25)
[2018-05-13] MEDS ORDERED: Magnesium Sulfate 2 GM IV* 2 GM/50 ML BAG IVPB ONE (14:19)
[2018-05-13] MEDS: LORazepam TAB(*) 0.5 MG PO PRN (14:20)
[2018-05-13] MEDS: Enoxaparin(*) 80 MG/0.8 ML SYR SUBCUT SCH (21:18)
--- NOTE | 2018-05-13 22:21 | CONS ---
CC: Dr. Rose; Dr. Chirinos CARDIOLOGY CONSULTATION: DATE OF CONSULT: 05/13/18 PATIENT OF: Dr. Rose and Dr. Chirinos. REASON FOR EVALUATION: Tachybrady syndrome. HISTORY OF PRESENT ILLNESS: This is a very pleasant 62-year-old woman with multiple medical problems including paroxysmal atrial fibrillation; atrial flutter; mitral regurgitation; pulmonary hypertension; coronary artery disease based on a cath in 2010, declining statins; pleural effusion, chronic related to Hodgkin's lymphoma in 1987, recurring in 1990, RT and Adriamycin as per the old chart and the patient; hypothyroidism; COPD. She apparently was in her usual state of health until she was admitted with diastolic heart failure in April. She also had some prolongation of her QT interval. She was felt to have diastolic heart failure and prolonged QT and her Tikosyn was reduced. She was diuresed according to the patient 20 pounds and discharged on 05/06/18. She returned on 05/08/18 feeling worse. She had gained some weight. She was tired and short of breath and had a cough. She denied any fever. She reported malaise. She also was having some frequent bowel movements. She was admitted and found to have hyponatremia and an elevated CRP at 240. She was 96% on room air. She had an abnormal chest x-ray. She was treated for presumed hospital- acquired pneumonia. She reports that she has been feeling better, but her weight has been increasing over the course of the hospitalization. She denies chest pain, syncope, or near syncope. She has developed orthopnea over the last few weeks. She said she sleeps at 45 degrees because of shortness of breath. Last night, she noticed that her heart was irregular and she was in AFib with a rapid ventricular response approximately 120s. At about 9 o'clock this morning, she converted to sinus rhythm, but had prolonged pauses. She had a short pause and then a PVC and then a pause of 5.6 seconds before she started with a junctional rhythm, then another long pause, and then sinus bradycardia slowly resuming sinus rhythm. She denies that she was symptomatic. She said "there was a lot going on at that time." She does not remember getting lightheaded or dizzy. She denies previous syncope. She denies any fevers, chills. She does have edema in her lower extremities and chronic edema of left upper extremity. PAST MEDICAL HISTORY: coronary artery disease, diastolic heart failure paroxysmal AFib/flutter coronary disease dating back to 2010 when she had a catheterization. At that time, she had proximal LAD of 15% to 20%, second diagonal was 65% to 70%. There was nondominant circumflex. The RCA was 15%. FFR of the second diagonal was 0.86, and her echo from November of 2017 revealed normal EF 50% to 55%, mild-to- moderate MR, trace AI. Of note, she had a repeat echo on 04/01/18, which revealed an EF of 45% to 50%, [id number] MR and mild TR, PA pressure was 33. On 04/02/18, she had an echo, which revealed EF of 45% to 50%, mildly decreased LV function, mild aortic stenosis, mild AI, [id number] MR, mild TR, mild pulmonary hypertension. Compared to 11/26/17, the LV function may be lower. COPD diagnosed in November of 2017. Hodgkin's lymphoma chemo and RT and residual lue edema and chronic right loculated effusions. Breast mass: enhancing breast mass noted on the left breast on a CT from March 2018 and she is awaiting further workup. PAST SURGICAL HISTORY: Includes splenectomy, appendectomy, VATS procedure on the right in 2011 secondary to complications of treatment for Hodgkin's. MEDICATIONS: As an inpatient include: 1. Acetaminophen p.r.n. 2. Albuterol 2 puffs q.2 p.r.n. 3. Albuterol/ipratropium q.4 while awake p.r.n. 4. Vitamin C 1000 mg a day. 5. BuSpar 5 mg t.i.d. p.r.n. 6. Vitamin D 400 units a day. 7. Klonopin 1 mg at 2300. 8. Tikosyn 125 mcg twice a day. 9. Vibramycin 100 mg b.i.d. 10. She was on Xarelto 20 mg a day as an outpatient. She is being switched to Lovenox. 11. Levothyroxine 75 mcg a day. 12. Metoprolol tartrate 50 mg b.i.d. 13. Potassium 20 mEq a day. 14. Magnesium oxide 400 mg a day. ALLERGIES: Include SOTALOL, CLINDAMYCIN, DRONEDARONE, LEVOFLOXACIN, PENICILLINS. FAMILY HISTORY: Includes mother in her 80s. Father at 56 from throat cancer. She has a younger brother, who is alive and well. 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 She has a history of tobacco use , discontinued in August of 2006. She is . She denies any children. She denies caffeine use. She has rare alcohol use. REVIEW OF SYSTEMS: Review of systems x10 was negative except as above. PHYSICAL EXAM: She is a well-developed, well-nourished female, in no apparent distress, appearing older than her stated age. Blood pressure 122/78 this morning, heart rate 86 and regular. JVD approximately 12 cm with V waves. Carotids 2+. No cervical adenopathy. There was atrophy of the left paratracheal muscles. Cardiac Exam: S1, S2 with a 2/6 systolic ejection murmur at the base and a 3/6 holosystolic murmur at the left lower sternal border and apex. Chest was remarkable for decreased breath sounds, somewhat more decreased on the left. Abdomen: Bowel sounds present. Femoral pulses intact without bruits. Distal pulses intact. There was 2 to 3+ edema of the lower extremities and 2+ edema of the left upper extremity. The right was normal. Motor strength 5/5 bilaterally. Deep tendon reflexes 2/4. Alert and oriented x3. DIAGNOSTIC STUDIES/LAB DATA: EKG from 05/08/18 revealed sinus rhythm with left axis deviation, poor R-wave progression, possible anterior AZ, and QTc of 508. Her EKG from January was similar with sinus rhythm with possible biatrial enlargement, IVCD, possible left bundle branch block, poor R-wave progression, possible anterior AZ, left axis deviation. Chest x-ray from 05/13/18 revealed moderately large right and moderate left dependent pleural effusions, negative for cardiomegaly, interval worsening of right lung consolidation suspicious for pneumonia. No change in the large right and moderate left pleural effusions. Her sodium was 129, BUN of 14, creatinine of 0.5, mag was low at 1.7. TSH of 4.27. Troponin was 0.01 on 05/08/18. BNP was 813 on 05/08/18, down from 903 on 05/02/18, but up from 398 on 04/01/18. Her chest CT from 04/06/18 revealed 1.6-cm enhancing mass of the left central breast; loculated pleural effusion on the right, similar in appearance in 2013; a [id number] pleural effusion on the left. Again is noted paramediastinal fibrotic changes likely related to treatment effect. Right atrial and right ventricular enlargement. IMPRESSION AND PLAN: My impression is that Ms. Traylor has history of coronary artery disease, tachybrady syndrome, chronic obstructive pulmonary disease, and heart failure of unclear etiology, possibly related to tachybrady syndrome as well as diastolic dysfunction, valvular heart disease. Given the prolonged asystole after transitioning from her tachyarrhythmia to sinus rhythm, I recommend a pacemaker to facilitate control of her tachybrady syndrome. The risks and benefits were reviewed and the patient understands and agrees to proceed. In addition, she appears to be volume overloaded and might benefit from IV diuretics. She appears not to be responding to the oral Lasix. Of note , her weight was 154 on 05/08/18 and is now 175. Therefore, I would recommend the following: We would replace her magnesium given her tendency toward arrhythmia and treatment with Tikosyn. We would follow her QTc on Tikosyn. We would maintain her potassium over 4. We would use p.r.n. IV Lasix as needed to control her diastolic heart failure. We would repeat her echo to look for further deterioration of her valvular function and LV function. We would hold her oral anticoagulant, Xarelto, now and cover her with Lovenox subcu until Wednesday, last dose Wednesday, so we can anticipate doing a pacemaker on Wednesday. I have ordered pacemaker and made her n.p.o. for Wednesday morning. I would suggest obtaining repeat CRP and CBC to confirm control of her infection. We would recommend further evaluation of her pleural effusions and left breast mass to evaluate for possible infection or ischemia. Further recommendations will depend on her clinical course. Discussed with EULOGIO Lopez. [id number]/[facility] #: [id number] SHRAVAN
[2018-05-13] MEDS: busPIRone TAB* 5 MG PO PRN (23:22)
[2018-05-13] MEDS: clonazePAM TAB(*) 1 MG PO SCH (23:22)
[2018-05-14] MEDS: LORazepam TAB(*) 0.5 MG PO PRN ×2 (04:24→13:43)
[2018-05-14] MEDS: Levothyroxine TAB* 75 MCG TAB PO SCH (05:46)
[2018-05-14 05:57] LABS: ABS Basophils 0.1 10^3/ul (0-0.2); ABS Eosinophils 0.1 10^3/ul (0-0.6); ABS Lymphocytes 0.3 10^3/ul (1.0-4.8); ABS Neutrophils 6.8 10^3/ul (1.5-7.7); ABS Nucleated RBC 0 10^3/ul; Eosinophil % 0.7 % (0-6); Hematocrit 38 % (35-47); Hemoglobin 12.5 g/dl (12.0-16.0); Lymphocyte % 3.6 % (25-47); Mean Corpuscular HGB Conc 33 g/dl (31-36); Mean Corpuscular Hemoglobin 28 pg (27-31); Mean Corpuscular Volume 87 fL (80-97); Mean Platelet Volume 7.5 fL (7.4-10.4); Nucleated Red Blood Cells % 0; Platelet Count 387 10^3/ul (150-450); Red Blood Count 4.42 10^6/ul (4.00-5.40); Red Cell Distribution Width 16 % (10.5-15); White Blood Count 8.2 10^3/ul (3.5-10.8)
[2018-05-14 06:12] LABS: EGFR Non-African American 189.3 (>60)
[2018-05-14] MEDS ORDERED: Furosemide TAB* 20 MG PO SCH (09:00)
[2018-05-14] MEDS: DOXYcycline CAP(*) 100 MG PO SCH ×2 (09:01→20:14)
[2018-05-14] MEDS: Enoxaparin(*) 80 MG/0.8 ML SYR SUBCUT SCH ×2 (09:01→20:10)
[2018-05-14] MEDS: Cholecalciferol TAB* 400 UNIT PO SCH (09:02)
[2018-05-14] MEDS: Ascorbic Acid TAB* 500 MG PO SCH (09:02)
[2018-05-14] MEDS: Potassium Chlor TAB* 20 MEQ TAB.ER PO SCH (09:02)
[2018-05-14] MEDS: Torsemide TAB* 20 MG PO SCH (09:02)
[2018-05-14] MEDS: Lactobacillus Acidophilus* 1 TAB PO SCH ×2 (09:03→20:14)
[2018-05-14] MEDS: Metoprolol Tartrate TAB* 50 mg PO SCH ×2 (09:03→20:11)
[2018-05-14] MEDS ORDERED: Potassium Chloride LIQUID* 20 MEQ PACKET PO ONE (12:33)
--- NOTE | 2018-05-14 13:06 | PN ---
Subjective Date of Service: 05/14/18 Interval History: Patient is feeling well today. Patient slept well and had decreased anxiety. Patient states that it is somewhat harder to breath when she lays flat and felt significant relief from sleeping sitting up in the chair. Patient denies F/C, Cough, CP, N/V, abdominal pain, diarrhea, dizziness, or other pain. Patient thinks her lower extremity edema is much improved. Family History: Unchanged from Admission Social History: Unchanged from Admission Past Medical History: Unchanged from Admission Objective Active Medications: Acetaminophen (Tylenol Tab*) 650 mg PO Q6H PRN PRN Reason: FEVER/PAIN Albuterol (Ventolin Hfa Inhaler*) 2 puff INH Q2H PRN PRN Reason: SOB/WHEEZING Last Admin: 05/11/18 23:14 Dose: 2 puff Albuterol/Ipratropium (Duoneb (Albuterol 2.5 Mg/Ipratropium 0.5 Mg)) 1 neb INH [id number] AWAKE PRN PRN Reason: SOB/WHEEZING Ascorbic Acid (Vitamin C Tab*) 1,000 mg PO DAILY [facility] Last Admin: 05/14/18 09:02 Dose: 500 mg Buspirone HCl (Buspar Tab*) 5 mg PO TID PRN PRN Reason: ANXIETY Last Admin: 05/13/18 23:22 Dose: 5 mg Cholecalciferol (Vitamin D Tab*) 400 unit PO DAILY [facility] Last Admin: 05/14/18 09:02 Dose: 400 unit Clonazepam (Klonopin Tab(*)) 1 mg PO 2300 [facility] Last Admin: 05/13/18 23:22 Dose: 1 mg Dofetilide (Tikosyn Cap*) 125 mcg PO 1000,2200 [facility] Last Admin: 05/13/18 21:11 Dose: 125 mcg Doxycycline Hyclate (Vibramycin Cap(*)) 100 mg PO BID [facility] Last Admin: 05/14/18 09:01 Dose: 100 mg Enoxaparin Sodium (Lovenox(*)) 80 mg SUBCUT Q12H [facility] Stop: 05/15/18 09:01 Last Admin: 05/14/18 09:01 Dose: 80 mg Lactobacillus Rhamnosus (Lactobacillus Acidophilus*) 1 tab PO BID [facility] Last Admin: 05/14/18 09:03 Dose: 1 tab Levothyroxine Sodium (Synthroid Tab*) 75 mcg PO DAILY@0600 [facility] Last Admin: 05/14/18 05:46 Dose: 75 mcg Lorazepam (Ativan Tab(*)) 0.5 mg PO Q12H PRN PRN Reason: ANXIETY Last Admin: 05/14/18 04:24 Dose: 0.5 mg Magnesium Oxide (Magox 400 Tab*) 800 mg PO 1200 [facility] Last Admin: 05/13/18 13:04 Dose: 800 mg Melatonin (Melatonin) 3 mg PO BEDTIME PRN PRN Reason: INSOMNIA Metoprolol Tartrate (Lopressor Tab*) 25 mg PO BID [facility] Last Admin: 05/14/18 09:03 Dose: 25 mg Potassium Chloride (Klor Con Er Tab*) 20 meq PO DAILY [facility] Last Admin: 05/14/18 09:02 Dose: 20 meq Torsemide (Demadex*) 20 mg PO DAILY [facility] Last Admin: 05/14/18 09:02 Dose: 20 mg Vital Signs - 8 hr 05/14/18 05/14/18 05/14/18 05:57 07:25 08:00 Temperature 97.4 F Pulse Rate 85 Respiratory 16 21 20 Rate Blood Pressure 99/53 (mmHg) O2 Sat by Pulse 97 Oximetry Oxygen Devices in Use Now: Nasal Cannula Appearance: Patient is a 62yo female who appears older than stated age and is sitting in the bed in [facility]. Eyes: No Scleral Icterus, PERRLA Ears/Nose/Mouth/Throat: NL Teeth, Lips, Gums, Clear Oropharnyx, Mucous Membranes Moist Neck: NL Appearance and Movements; NL JVP, Trachea Midline Respiratory: Symmetrical Chest Expansion and Respiratory Effort, - - Diminished in LLL. Cardiovascular: NL Sounds; No Murmurs; No JVD, RRR, - - 1+ edema in B/L LE. Improved. Abdominal: NL Sounds; No Tenderness; No Distention, No Hepatosplenomegaly Lymphatic: No Cervical Adenopathy Extremities: No Clubbing, Cyanosis, - - LUE lymphedema. Skin: No Rash or Ulcers, No Nodules or Sclerosis Neurological: Alert and Oriented x 3, NL Sensation, NL Muscle Strength and Tone , - - CN II-XII intact. Result Diagrams: 05/14/18 05:45 05/14/18 05:45 Microbiology and Other Data: Microbiology 05/08/18 19:00 Influenza Types A,B Antigen - Final Nasopharyngeal Specimen received for Influenza A/B Molecular testing Assess/Plan/Problems-Billing Assessment: Ms. Traylor is a 62 y.o female with a PMHX significant for Diastolic chf , Hodgkin's lymphoma, CAD, COPD, afib and left breast mass found on CT 03/2018. who presented to the ER with shortness of breath, cough and fatigue. Found to have an abnormal chest xray with clinical concern for HCAP. - Patient Problems (1) Atrial fibrillation Current Visit: No Status: Acute Code(s): I48.91 - UNSPECIFIED ATRIAL FIBRILLATION SNOMED Code(s): 12572156 Comment: - Stop Rivaroxaban and start Lovenox until Wednesday Morning. - Continue Tikosyn - QTc 497. - Had sinus pause after episode of Afib with RVR - Tachy-Leonidas syndrome - Appreciate Cardiology consult. - Plan for pacemaker Wednesday - Decrease Metoprolol due to pauses. (2) HCAP (healthcare-associated pneumonia) Current Visit: Yes Status: Acute Code(s): J18.9 - PNEUMONIA, UNSPECIFIED ORGANISM SNOMED Code(s): 928562244 Comment: - Change to Doxycycline monotherapy to complete 7 day course today. - Negative Influenza A&B - Blood cultures - no growth yet. - Negative Urine antigens - Continue Duonebs to q4H prn while awake - Appreciate Pulmonology Input - Low probability of PE due to anticoagulation on admission and likely alternative explanation. (3) CHF (congestive heart failure) Current Visit: No Status: Acute Code(s): I50.9 - HEART FAILURE, UNSPECIFIED SNOMED Code(s): 85985601 Comment: - Acute on Chronic diastolic and Systolic heart failure - Increase Lasix for Edema, Monitor for hypokalemia - ACEI/ARB should be resumed when able. - EF on 04/06/18 was 45-50 %. Repeat Echo to assess for worsening valvular disease or wall motion abnormalities. - Will need evaluation for ischemic causes before discharge. (4) QT prolongation Current Visit: No Status: Acute Code(s): R94.31 - ABNORMAL ELECTROCARDIOGRAM [ECG] [EKG] SNOMED Code(s): 796157021 Comment: - QTc at 497 - Optimize electrolytes and Contiue Tikosyn at 125 BID. (5) COPD (chronic obstructive pulmonary disease) Current Visit: Yes Status: Acute Code(s): J44.9 - CHRONIC OBSTRUCTIVE PULMONARY DISEASE, UNSPECIFIED SNOMED Code(s): 08097561 Comment: - Mild exacerbation resolved - Continue nebs and inhalers - No current wheezing, no indication at this time for steroids. (6) History of Hodgkin's lymphoma Current Visit: No Status: Chronic Code(s): Z85.71 - PERSONAL HISTORY OF HODGKIN LYMPHOMA SNOMED Code(s): 360918160 Comment: - Not current issue. - With chronic R loculated pleural effusion, residual R hand neuropathy and left arm lymphedema as a complication of treatment. (7) Acute respiratory failure with hypoxia Current Visit: No Status: Acute Priority: High Code(s): J96.01 - ACUTE RESPIRATORY FAILURE WITH HYPOXIA SNOMED Code(s): 45853219 Comment: - Due to Pneumonia - Patient continues to improve clinically - Persistent need for O2 intermittently with decreasing frequency - Continue nebulizers. (8) Anxiety Current Visit: No Status: Acute Code(s): F41.9 - ANXIETY DISORDER, UNSPECIFIED SNOMED Code(s): 79439402 Comment: - Continue Klonipin nightly - PRN ativan low dose - Buspar PRN - Patient feels as if the nebulizers are contributing significantly. (9) Breast mass Current Visit: No Status: Acute Code(s): N63.0 - UNSPECIFIED LUMP IN UNSPECIFIED BREAST SNOMED Code(s): 84059022 Comment: - Mass, will need to follow up outpatient with mammogram or ultrasound with possible subsequent biopsy. - Discussed with PCP and stressed importance to patient. (10) DVT prophylaxis Current Visit: No Status: Acute Code(s): JZE0808 - SNOMED Code(s): 457109422 Comment: -On Eliquis (11) Full code status Current Visit: No Status: Acute Code(s): Z78.9 - OTHER SPECIFIED HEALTH STATUS SNOMED Code(s): 171455529 Status and Disposition: Inpatient. Hopeful discharge to [facility] after Pacemaker.
[2018-05-14] MEDS: Magnesium Oxide TAB* 400 MG PO SCH (13:43)
[2018-05-14] MEDS: Dofetilide CAP* 125 MCG PO SCH ×2 (13:43→22:45)
[2018-05-14] MEDS: Albuterol HFA INHALER* 8 gm MDI INH PRN (13:46)
[2018-05-14] MEDS ORDERED: Furosemide IV* 10 MG/ML VIAL (40 MG) IV ONE (17:21)
[2018-05-14] MEDS ORDERED: Melatonin 3 MG TAB PO PRN (21:00)
[2018-05-14] MEDS: clonazePAM TAB(*) 1 MG PO SCH (22:45)
[2018-05-14] MEDS: busPIRone TAB* 5 MG PO PRN (22:48)
[2018-05-15] MEDS: Levothyroxine TAB* 75 MCG TAB PO SCH (05:28)
[2018-05-15 06:01] LABS: EGFR Non-African American 131.5 (>60)
[2018-05-15] MEDS ORDERED: Magnesium Sulfate 2 GM IV* 2 GM/50 ML BAG IVPB ONE (06:52)
[2018-05-15] MEDS ORDERED: Potassium Chloride LIQUID* 20 MEQ PACKET PO ONE (07:48)
[2018-05-15] MEDS: Cholecalciferol TAB* 400 UNIT PO SCH (08:31)
[2018-05-15] MEDS: Lactobacillus Acidophilus* 1 TAB PO SCH ×2 (08:31→21:23)
[2018-05-15] MEDS: Metoprolol Tartrate TAB* 50 mg PO SCH ×2 (08:32→21:23)
[2018-05-15] MEDS: Ascorbic Acid TAB* 500 MG PO SCH ×2 (08:33→08:36)
[2018-05-15] MEDS: Torsemide TAB* 20 MG PO SCH (08:33)
[2018-05-15] MEDS: Potassium Chlor TAB* 20 MEQ TAB.ER PO SCH (08:34)
[2018-05-15] MEDS ORDERED: Potassium Chloride LIQUID* 20 MEQ PACKET ONE (08:38)
[2018-05-15] MEDS: busPIRone TAB* 5 MG PO PRN (08:41)
[2018-05-15] MEDS: Enoxaparin(*) 80 MG/0.8 ML SYR SUBCUT SCH (08:42)
[2018-05-15] MEDS: KCL 20 MEQ/100 ML IVPREMIX* 20 MEQ/100 ML BAG IV SCH ×2 (09:32→12:09)
[2018-05-15] MEDS: Dofetilide CAP* 125 MCG PO SCH ×2 (09:37→22:30)
[2018-05-15] MEDS: LORazepam TAB(*) 0.5 MG PO PRN ×2 (09:45→22:30)
--- NOTE | 2018-05-15 10:53 | PN ---
Subjective Date of Service: 05/15/18 Interval History: Patient is feeling worse today because he has a headache. Patient states the headache is improving after she took off her oxygen. Patient denies CP, SOB, Dizziness, LUKE, N/V, abdominal pain, diarrhea, dysuria, vision changes, or other pain. Patient feels as if her LE edema is at baseline. Family History: Unchanged from Admission Social History: Unchanged from Admission Past Medical History: Unchanged from Admission Objective Active Medications: Acetaminophen (Tylenol Tab*) 650 mg PO Q6H PRN PRN Reason: FEVER/PAIN Albuterol (Ventolin Hfa Inhaler*) 2 puff INH Q2H PRN PRN Reason: SOB/WHEEZING Last Admin: 05/14/18 13:46 Dose: 2 puff Albuterol/Ipratropium (Duoneb (Albuterol 2.5 Mg/Ipratropium 0.5 Mg)) 1 neb INH [id number] AWAKE PRN PRN Reason: SOB/WHEEZING Ascorbic Acid (Vitamin C Tab*) 1,000 mg PO DAILY [facility] Last Admin: 05/15/18 08:36 Dose: 500 mg Buspirone HCl (Buspar Tab*) 5 mg PO TID PRN PRN Reason: ANXIETY Last Admin: 05/15/18 08:41 Dose: 5 mg Cholecalciferol (Vitamin D Tab*) 400 unit PO DAILY [facility] Last Admin: 05/15/18 08:31 Dose: 400 unit Clonazepam (Klonopin Tab(*)) 1 mg PO 2300 [facility] Last Admin: 05/14/18 22:45 Dose: 1 mg Dofetilide (Tikosyn Cap*) 125 mcg PO 1000,2200 [facility] Last Admin: 05/15/18 09:37 Dose: 125 mcg Potassium Chloride (Potassium Chloride 20 Meq/100 Ml Ivpremix*) 20 meq in 100 mls @ 50 mls/hr IV Q2H [facility] Stop: 05/15/18 11:59 Last Admin: 05/15/18 09:32 Dose: 50 mls/hr Lactobacillus Rhamnosus (Lactobacillus Acidophilus*) 1 tab PO BID [facility] Last Admin: 05/15/18 08:31 Dose: 1 tab Levothyroxine Sodium (Synthroid Tab*) 75 mcg PO DAILY@0600 [facility] Last Admin: 05/15/18 05:28 Dose: 75 mcg Lorazepam (Ativan Tab(*)) 0.5 mg PO Q12H PRN PRN Reason: ANXIETY Last Admin: 05/15/18 09:45 Dose: 0.5 mg Magnesium Oxide (Magox 400 Tab*) 800 mg PO 1200 [facility] Last Admin: 05/14/18 13:43 Dose: 800 mg Melatonin (Melatonin) 3 mg PO BEDTIME PRN PRN Reason: INSOMNIA Metoprolol Tartrate (Lopressor Tab*) 25 mg PO BID [facility] Last Admin: 05/15/18 08:32 Dose: 25 mg Potassium Chloride (Klor Con Er Tab*) 20 meq PO DAILY [facility] Last Admin: 05/15/18 08:34 Dose: 20 meq Torsemide (Demadex*) 20 mg PO DAILY [facility] Last Admin: 05/15/18 08:33 Dose: 20 mg Vital Signs - 8 hr 05/15/18 05/15/18 05/15/18 04:01 07:34 09:45 Temperature 97.8 F 97.4 F Pulse Rate 82 86 Respiratory 18 20 18 Rate Blood Pressure 132/80 135/72 (mmHg) O2 Sat by Pulse 100 100 Oximetry Oxygen Devices in Use Now: None Appearance: Patient is a 62yo female who appears stated age and is sitting in the bed in [facility]. Eyes: No Scleral Icterus, PERRLA Ears/Nose/Mouth/Throat: NL Teeth, Lips, Gums, Clear Oropharnyx, Mucous Membranes Moist Neck: NL Appearance and Movements; NL JVP, Trachea Midline Respiratory: Symmetrical Chest Expansion and Respiratory Effort, Clear to Auscultation Cardiovascular: NL Sounds; No Murmurs; No JVD, RRR, - - 1+ edema in B/L LE, consistent with previous exam. Abdominal: NL Sounds; No Tenderness; No Distention, No Hepatosplenomegaly Lymphatic: No Cervical Adenopathy Extremities: No Clubbing, Cyanosis, - - LUE Lymphedema. Skin: No Nodules or Sclerosis - CN II-XII intact. Neurological: Alert and Oriented x 3, NL Sensation, NL Muscle Strength and Tone , - Result Diagrams: 05/14/18 05:45 05/15/18 06:30 Microbiology and Other Data: Microbiology 05/08/18 19:00 Influenza Types A,B Antigen - Final Nasopharyngeal Specimen received for Influenza A/B Molecular testing Assess/Plan/Problems-Billing Assessment: Ms. Traylor is a 62 y.o female with a PMHX significant for Diastolic chf , Hodgkin's lymphoma, CAD, COPD, afib and left breast mass found on CT 03/2018. who presented to the ER with shortness of breath, cough and fatigue. Found to have an abnormal chest xray with clinical concern for HCAP. - Patient Problems (1) Atrial fibrillation Current Visit: No Status: Acute Code(s): I48.91 - UNSPECIFIED ATRIAL FIBRILLATION SNOMED Code(s): 70145421 Comment: - Stop Rivaroxaban and start Lovenox until Wednesday Morning. - Continue Tikosyn - QTc 497. - Had sinus pause after episode of Afib with RVR - Tachy-Leonidas syndrome - Appreciate Cardiology consult. - Plan for pacemaker Wednesday - Decrease Metoprolol due to pauses. - Occasional dropped beats, no other pauses. (2) HCAP (healthcare-associated pneumonia) Current Visit: Yes Status: Acute Code(s): J18.9 - PNEUMONIA, UNSPECIFIED ORGANISM SNOMED Code(s): 686470736 Comment: - Completed antibiotics. - Negative Influenza A&B - Blood cultures - no growth - Negative Urine antigens - Appreciate Pulmonology Input - Low probability of PE due to anticoagulation on admission and likely alternative explanation. (3) CHF (congestive heart failure) Current Visit: No Status: Acute Code(s): I50.9 - HEART FAILURE, UNSPECIFIED SNOMED Code(s): 87559983 Comment: - Acute on Chronic diastolic and Systolic heart failure - Change Lasix to torsemide and maintain dose. Received 40mg IV lasix with improvement in edema but possible contraction alkalosis. - Start low-dose lisinopril - EF on 04/06/18 was 45-50 %. Repeat Echo to assess for worsening valvular disease or wall motion abnormalities. - Will need evaluation for ischemic causes before discharge. (4) COPD (chronic obstructive pulmonary disease) Current Visit: Yes Status: Acute Code(s): J44.9 - CHRONIC OBSTRUCTIVE PULMONARY DISEASE, UNSPECIFIED SNOMED Code(s): 77169708 Comment: - Mild exacerbation resolved - Continue nebs and inhalers (5) History of Hodgkin's lymphoma Current Visit: No Status: Chronic Code(s): Z85.71 - PERSONAL HISTORY OF HODGKIN LYMPHOMA SNOMED Code(s): 332498234 Comment: - Not current issue. - With chronic R loculated pleural effusion, residual R hand neuropathy and left arm lymphedema as a complication of treatment. (6) Acute respiratory failure with hypoxia Current Visit: No Status: Acute Priority: High Code(s): J96.01 - ACUTE RESPIRATORY FAILURE WITH HYPOXIA SNOMED Code(s): 19984745 Comment: - Due to Pneumonia - Impoved - D/C O2 due to alkalosis - Continue nebulizers. (7) Anxiety Current Visit: No Status: Acute Code(s): F41.9 - ANXIETY DISORDER, UNSPECIFIED SNOMED Code(s): 69048951 Comment: - Continue Klonipin nightly - PRN ativan low dose - Buspar PRN - Patient feels as if the nebulizers are contributing significantly. (8) Breast mass Current Visit: No Status: Acute Code(s): N63.0 - UNSPECIFIED LUMP IN UNSPECIFIED BREAST SNOMED Code(s): 19139756 Comment: - Mass, will need to follow up outpatient with mammogram or ultrasound with possible subsequent biopsy. - Discussed with PCP and stressed importance to patient. (9) DVT prophylaxis Current Visit: No Status: Acute Code(s): DOH1658 - SNOMED Code(s): 006692187 Comment: - Held after AM Lovenox for pacemaker. (10) Full code status Current Visit: No Status: Acute Code(s): Z78.9 - OTHER SPECIFIED HEALTH STATUS SNOMED Code(s): 632119165 Status and Disposition: Inpatient. Hopeful discharge to [facility] after Pacemaker.
[2018-05-15] MEDS: Magnesium Oxide TAB* 400 MG PO SCH (12:08)
[2018-05-15] MEDS: Albuterol HFA INHALER* 8 gm MDI INH PRN (20:47)
[2018-05-15] MEDS: clonazePAM TAB(*) 1 MG PO SCH (22:30)
[2018-05-16] MEDS: Levothyroxine TAB* 75 MCG TAB PO SCH (05:08)
[2018-05-16] MEDS: busPIRone TAB* 5 MG PO PRN (05:31)
[2018-05-16 06:05] LABS: ABS Basophils 0.1 10^3/ul (0-0.2); ABS Eosinophils 0.1 10^3/ul (0-0.6); ABS Lymphocytes 0.6 10^3/ul (1.0-4.8); ABS Monocytes 0.8 10^3/ul (0-0.8); ABS Neutrophils 6.2 10^3/ul (1.5-7.7); ABS Nucleated RBC 0 10^3/ul; Eosinophil % 0.7 % (0-6); Hematocrit 38 % (35-47); Hemoglobin 12.3 g/dl (12.0-16.0); Lymphocyte % 7.3 % (25-47); Mean Corpuscular HGB Conc 33 g/dl (31-36); Mean Corpuscular Hemoglobin 28 pg (27-31); Mean Corpuscular Volume 86 fL (80-97); Mean Platelet Volume 7.8 fL (7.4-10.4); Nucleated Red Blood Cells % 0; Platelet Count 452 10^3/ul (150-450); Red Blood Count 4.35 10^6/ul (4.00-5.40); Red Cell Distribution Width 17 % (10.5-15); White Blood Count 7.7 10^3/ul (3.5-10.8)
[2018-05-16 06:33] LABS: EGFR Non-African American 105.7 (>60)
[2018-05-16] MEDS: Cholecalciferol TAB* 400 UNIT PO SCH (09:10)
[2018-05-16] MEDS: Potassium Chlor TAB* 20 MEQ TAB.ER PO SCH (09:10)
[2018-05-16] MEDS: Torsemide TAB* 20 MG PO SCH (09:10)
[2018-05-16] MEDS: Lactobacillus Acidophilus* 1 TAB PO SCH ×2 (09:10→21:42)
[2018-05-16] MEDS: Metoprolol Tartrate TAB* 50 mg PO SCH ×2 (09:10→21:42)
[2018-05-16] MEDS: Dofetilide CAP* 125 MCG PO SCH ×2 (09:53→21:42)
[2018-05-16] MEDS: Ascorbic Acid TAB* 500 MG PO SCH (09:53)
--- NOTE | 2018-05-16 10:53 | PN ---
Subjective Date of Service: 05/16/18 Interval History: Pt reports she continues to have LE edema but it is improving. She also reports her SOB has improved but continues to have Orthopnea and reports she slept sitting up in the recliner. She denies CP. She reports good appetite She got upset when I asked about the breast mass stating "Ill deal with that as an outpatient". She states it is tender but not causing her much pain. She denies any noted broken skin. Family History: Unchanged from Admission Social History: Unchanged from Admission Past Medical History: Unchanged from Admission Objective Active Medications: Acetaminophen (Tylenol Tab*) 650 mg PO Q6H PRN PRN Reason: FEVER/PAIN Albuterol (Ventolin Hfa Inhaler*) 2 puff INH Q2H PRN PRN Reason: SOB/WHEEZING Last Admin: 05/15/18 20:47 Dose: 2 puff Albuterol/Ipratropium (Duoneb (Albuterol 2.5 Mg/Ipratropium 0.5 Mg)) 1 neb INH [id number] AWAKE PRN PRN Reason: SOB/WHEEZING Ascorbic Acid (Vitamin C Tab*) 1,000 mg PO DAILY [facility] Last Admin: 05/16/18 09:53 Dose: 1,000 mg Buspirone HCl (Buspar Tab*) 5 mg PO TID PRN PRN Reason: ANXIETY Last Admin: 05/16/18 05:31 Dose: 5 mg Cholecalciferol (Vitamin D Tab*) 400 unit PO DAILY [facility] Last Admin: 05/16/18 09:10 Dose: 400 unit Clonazepam (Klonopin Tab(*)) 1 mg PO 2300 [facility] Last Admin: 05/15/18 22:30 Dose: 1 mg Dofetilide (Tikosyn Cap*) 125 mcg PO 1000,2200 [facility] Last Admin: 05/16/18 09:53 Dose: 125 mcg Lactobacillus Rhamnosus (Lactobacillus Acidophilus*) 1 tab PO BID [facility] Last Admin: 05/16/18 09:10 Dose: 1 tab Levothyroxine Sodium (Synthroid Tab*) 75 mcg PO DAILY@0600 [facility] Last Admin: 05/16/18 05:08 Dose: 75 mcg Lorazepam (Ativan Tab(*)) 0.5 mg PO Q12H PRN PRN Reason: ANXIETY Last Admin: 05/15/18 22:30 Dose: 0.5 mg Magnesium Oxide (Magox 400 Tab*) 800 mg PO 1200 [facility] Last Admin: 05/15/18 12:08 Dose: 800 mg Melatonin (Melatonin) 3 mg PO BEDTIME PRN PRN Reason: INSOMNIA Metoprolol Tartrate (Lopressor Tab*) 25 mg PO BID [facility] Last Admin: 05/16/18 09:10 Dose: 25 mg Potassium Chloride (Klor Con Er Tab*) 20 meq PO DAILY [facility] Last Admin: 05/16/18 09:10 Dose: 20 meq Torsemide (Demadex*) 20 mg PO DAILY [facility] Last Admin: 05/16/18 09:10 Dose: 20 mg Vital Signs - 8 hr 05/16/18 05/16/18 05/16/18 04:34 07:23 07:31 Temperature 98.5 F 97.5 F Pulse Rate 88 83 Respiratory 20 18 16 Rate Blood Pressure 152/84 127/58 (mmHg) O2 Sat by Pulse 92 93 Oximetry Oxygen Devices in Use Now: None Appearance: chronically ill fmelae sitting up in bed in NAD, A+O x3 - flat affect Eyes: No Scleral Icterus, PERRLA Ears/Nose/Mouth/Throat: NL Teeth, Lips, Gums, Mucous Membranes Moist Respiratory: Symmetrical Chest Expansion and Respiratory Effort, - - diminshed in bases Cardiovascular: NL Sounds; No Murmurs; No JVD, RRR, No Edema Abdominal: NL Sounds; No Tenderness; No Distention Extremities: No Edema, No Clubbing, Cyanosis Skin: No Rash or Ulcers, No Nodules or Sclerosis, - - left breat at 8 oclock is a hard mass - difficult to measure as patient is not wanting me to look at it - there is no broken or open skin. Neurological: Alert and Oriented x 3, NL Sensation, NL Muscle Strength and Tone Lines/Tubes/Other Access: Clean, Dry and Intact Peripheral IV Nutrition: Taking PO's Result Diagrams: 05/16/18 05:23 05/16/18 05:23 Microbiology and Other Data: Microbiology 05/08/18 19:00 Influenza Types A,B Antigen - Final Nasopharyngeal Specimen received for Influenza A/B Molecular testing Assess/Plan/Problems-Billing Assessment: Ms. Traylor is a 62 y.o female with a PMHX significant for Diastolic chf , Hodgkin's lymphoma, CAD, COPD, afib and left breast mass found on CT 03/2018. who presented to the ER with shortness of breath, cough and fatigue. 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 - Negative Influenza A&B - Blood cultures - no growth - Negative Urine antigens - Appreciate Pulmonology Input - Low probability of PE due to anticoagulation on admission and likely alternative explanation. (2) Acute respiratory failure with hypoxia Comment: - Due to Pneumonia - Resolved - O2 DC's yesterday with CO2 43 - - Continue nebulizers. (3) Atrial fibrillation Comment: - Rivaroxaban on hold last dose 05/09 and was start Lovenox until 05/15 - Continue Tikosyn - QTc 497. - Had sinus pause after episode of Afib with RVR - Tachy-Leonidas syndrome - Appreciate Cardiology consult. - Plan for pacemaker Wed - Metoprolol decreased due to pauses. - Occasional dropped beats, no other pauses, asymptomatic. (4) CHF (congestive heart failure) Comment: - - Acute on Chronic diastolic and Systolic heart failure - Lasix changed to torsemide. - low-dose lisinopril started 05/15 - EF on 04/06/18 was 45-50%. - Will need evaluation for ischemic causes before discharge. (5) COPD (chronic obstructive pulmonary disease) Comment: - Mild exacerbation resolved - Continue nebs and inhalers (6) Breast mass Comment: - Mass, will need to follow up outpatient biopsy. - Discussed with PCP and stressed importance to patient. (7) Anxiety Comment: - Continue Klonipin nightly - PRN ativan low dose - Buspar PRN (8) History of Hodgkin's lymphoma Comment: - Not current issue. - With chronic R loculated pleural effusion, residual R hand neuropathy and left arm lymphedema as a complication of treatment. (9) Full code status (10) DVT prophylaxis Comment: - on hold for pacer - in request of nurse charge rn Status and Disposition: Inpatient. Hopeful discharge to [facility] after Pacemaker.
[2018-05-16] MEDS ORDERED: Magnesium Sulfate 1 GM IV* 1 GM/100 ML BAG IV ONE (10:56)
[2018-05-16] MEDS: Magnesium Oxide TAB* 400 MG PO SCH (11:18)
--- NOTE | 2018-05-16 13:21 | PN ---
Subjective Date of Service: 05/16/18 - CC (cardiology) tachybrady Interval History: I was asked by Dr Felix to implant a pacemaker in the patient late last evening. -Hx PAF. -This admission SNRT (slow sinus node recovery time) with spontaneous CV from afib to NSR, pt asymptomatic in bed. The patient admitted with infection, currently off antibiotics. -CRP improved but still quite elevated. The patient has a left breast mass that needs work up. I did not see the patient (I am in office), but discussed pacer implant indications and specifics with the patient. She has significant lymphedema in the LUE, but states this is now her dominant hand due to a neuropathy on the right. -After discussion the plan will be to implant a dual chamber pacemaker in the Right UE on Wednesday (for tachy mason with significant pauses and bradycardia post CV/SNRT). -In the interim, I recommend ensuring no active infections, have ID see her PRN. If she has an active bacterial infection then she risks seeding the pacer. -If appropriate and able, consider surgical evaluation for possible biopsy pre implant. Complex patient, see my prior consult of several weeks ago. Medications Active Medications: Acetaminophen (Tylenol Tab*) 650 mg PO Q6H PRN PRN Reason: FEVER/PAIN Albuterol (Ventolin Hfa Inhaler*) 2 puff INH Q2H PRN PRN Reason: SOB/WHEEZING Last Admin: 05/15/18 20:47 Dose: 2 puff Albuterol/Ipratropium (Duoneb (Albuterol 2.5 Mg/Ipratropium 0.5 Mg)) 1 neb INH [id number] AWAKE PRN PRN Reason: SOB/WHEEZING Ascorbic Acid (Vitamin C Tab*) 1,000 mg PO DAILY [facility] Last Admin: 05/16/18 09:53 Dose: 1,000 mg Buspirone HCl (Buspar Tab*) 5 mg PO TID PRN PRN Reason: ANXIETY Last Admin: 05/16/18 05:31 Dose: 5 mg Cholecalciferol (Vitamin D Tab*) 400 unit PO DAILY [facility] Last Admin: 05/16/18 09:10 Dose: 400 unit Clonazepam (Klonopin Tab(*)) 1 mg PO 2300 [facility] Last Admin: 05/15/18 22:30 Dose: 1 mg Dofetilide (Tikosyn Cap*) 125 mcg PO 1000,2200 [facility] Last Admin: 05/16/18 09:53 Dose: 125 mcg Lactobacillus Rhamnosus (Lactobacillus Acidophilus*) 1 tab PO BID [facility] Last Admin: 05/16/18 09:10 Dose: 1 tab Levothyroxine Sodium (Synthroid Tab*) 75 mcg PO DAILY@0600 [facility] Last Admin: 05/16/18 05:08 Dose: 75 mcg Lorazepam (Ativan Tab(*)) 0.5 mg PO Q12H PRN PRN Reason: ANXIETY Last Admin: 05/15/18 22:30 Dose: 0.5 mg Magnesium Oxide (Magox 400 Tab*) 800 mg PO 1200 [facility] Last Admin: 05/16/18 11:18 Dose: 800 mg Melatonin (Melatonin) 3 mg PO BEDTIME PRN PRN Reason: INSOMNIA Metoprolol Tartrate (Lopressor Tab*) 25 mg PO BID [facility] Last Admin: 05/16/18 09:10 Dose: 25 mg Potassium Chloride (Klor Con Er Tab*) 20 meq PO DAILY [facility] Last Admin: 05/16/18 09:10 Dose: 20 meq Torsemide (Demadex*) 20 mg PO DAILY [facility] Last Admin: 05/16/18 09:10 Dose: 20 mg Objective Vital Signs: Temp Pulse Resp BP Pulse Ox 98.0 F 82 20 125/64 95 05/16/18 11:23 05/16/18 11:23 05/16/18 11:23 05/16/18 11:23 05/16/18 11:23 Oxygen Devices in Use Now: None Laboratory Results: 05/16/18 05:23 05/16/18 05:23 INR (Anticoag Therapy) 2.74 (0.77-1.02) H 05/08/18 19:56 APTT 36.2 seconds (26.0-36.3) 05/08/18 19:56 Total Bilirubin 1.40 mg/dL (0.2-1.0) H 05/08/18 19:56 AST 20 U/L (13-39) 05/08/18 19:56 ALT 18 U/L (7-52) 05/08/18 19:56 Alkaline Phosphatase 53 U/L (34-104) 05/08/18 19:56 CK-MB (CK-2) 1.3 ng/mL (0.6-6.3) 05/08/18 19:56 B-Natriuretic Peptide 817 pg/mL (<=100) H 05/14/18 05:45 Total Protein 7.1 g/dL (6.4-8.9) 05/08/18 19:56 Albumin 3.2 g/dL (3.2-5.2) 05/08/18 19:56 Globulin 3.9 g/dL (2-4) 05/08/18 19:56 Albumin/Globulin Ratio 0.8 (1-3) L 05/08/18 19:56 TSH 4.27 mcIU/mL (0.34-5.60) 05/09/18 06:43 05/08/18 19:56 Troponin I 0.01
[2018-05-16] MEDS: LORazepam TAB(*) 0.5 MG PO PRN (14:18)
[2018-05-16] MEDS: clonazePAM TAB(*) 1 MG PO SCH (22:41)
[2018-05-17] MEDS: LORazepam TAB(*) 0.5 MG PO PRN (02:05)
[2018-05-17] MEDS: Levothyroxine TAB* 75 MCG TAB PO SCH (05:35)
[2018-05-17 06:03] LABS: ABS Basophils 0 10^3/ul (0-0.2); ABS Eosinophils 0.1 10^3/ul (0-0.6); ABS Lymphocytes 0.6 10^3/ul (1.0-4.8); ABS Monocytes 0.7 10^3/ul (0-0.8); ABS Neutrophils 6.3 10^3/ul (1.5-7.7); ABS Nucleated RBC 0 10^3/ul; Eosinophil % 0.9 % (0-6); Hematocrit 37 % (35-47); Hemoglobin 12.3 g/dl (12.0-16.0); Lymphocyte % 7.7 % (25-47); Mean Corpuscular HGB Conc 33 g/dl (31-36); Mean Corpuscular Hemoglobin 29 pg (27-31); Mean Corpuscular Volume 87 fL (80-97); Mean Platelet Volume 7.6 fL (7.4-10.4); Nucleated Red Blood Cells % 0; Platelet Count 475 10^3/ul (150-450); Red Blood Count 4.29 10^6/ul (4.00-5.40); Red Cell Distribution Width 17 % (10.5-15); White Blood Count 7.7 10^3/ul (3.5-10.8)
[2018-05-17 06:19] LABS: EGFR Non-African American 122.6 (>60)
[2018-05-17] MEDS: Torsemide TAB* 20 MG PO SCH (09:12)
[2018-05-17] MEDS: Lactobacillus Acidophilus* 1 TAB PO SCH ×2 (09:12→21:09)
[2018-05-17] MEDS: Cholecalciferol TAB* 400 UNIT PO SCH (09:12)
[2018-05-17] MEDS: Potassium Chlor TAB* 20 MEQ TAB.ER PO SCH (09:12)
[2018-05-17] MEDS: Ascorbic Acid TAB* 500 MG PO SCH (09:12)
[2018-05-17] MEDS: Dofetilide CAP* 125 MCG PO SCH ×2 (09:13→21:09)
[2018-05-17] MEDS: Metoprolol Tartrate TAB* 50 mg PO SCH ×2 (09:13→21:09)
[2018-05-17] MEDS: Albuterol HFA INHALER* 8 gm MDI INH PRN ×2 (11:21→17:07)
[2018-05-17] MEDS: Magnesium Oxide TAB* 400 MG PO SCH (11:38)
--- NOTE | 2018-05-17 11:44 | PN ---
Subjective Date of Service: 05/17/18 Interval History: pt reports she is feeling less fluid overloaded and has notice she has lost weight in her LE's. Reports her breathing has improved as well. Offers no complaints today. Discussed she will need an outpt stress test Family History: Unchanged from Admission Social History: Unchanged from Admission Past Medical History: Unchanged from Admission Objective Active Medications: Acetaminophen (Tylenol Tab*) 650 mg PO Q6H PRN PRN Reason: FEVER/PAIN Albuterol (Ventolin Hfa Inhaler*) 2 puff INH Q2H PRN PRN Reason: SOB/WHEEZING Last Admin: 05/17/18 11:21 Dose: 2 puff Albuterol/Ipratropium (Duoneb (Albuterol 2.5 Mg/Ipratropium 0.5 Mg)) 1 neb INH [id number] AWAKE PRN PRN Reason: SOB/WHEEZING Ascorbic Acid (Vitamin C Tab*) 1,000 mg PO DAILY [facility] Last Admin: 05/17/18 09:12 Dose: Not Given Buspirone HCl (Buspar Tab*) 5 mg PO TID PRN PRN Reason: ANXIETY Last Admin: 05/16/18 05:31 Dose: 5 mg Cholecalciferol (Vitamin D Tab*) 400 unit PO DAILY [facility] Last Admin: 05/17/18 09:12 Dose: 400 unit Clonazepam (Klonopin Tab(*)) 1 mg PO 2300 [facility] Last Admin: 05/16/18 22:41 Dose: 1 mg Dofetilide (Tikosyn Cap*) 125 mcg PO 1000,2200 [facility] Last Admin: 05/17/18 09:13 Dose: 125 mcg Lactobacillus Rhamnosus (Lactobacillus Acidophilus*) 1 tab PO BID [facility] Last Admin: 05/17/18 09:12 Dose: 1 tab Levothyroxine Sodium (Synthroid Tab*) 75 mcg PO DAILY@0600 [facility] Last Admin: 05/17/18 05:35 Dose: 75 mcg Lorazepam (Ativan Tab(*)) 0.5 mg PO Q12H PRN PRN Reason: ANXIETY Last Admin: 05/17/18 02:05 Dose: 0.5 mg Magnesium Oxide (Magox 400 Tab*) 800 mg PO 1200 [facility] Last Admin: 05/17/18 11:38 Dose: 800 mg Melatonin (Melatonin) 3 mg PO BEDTIME PRN PRN Reason: INSOMNIA Metoprolol Tartrate (Lopressor Tab*) 25 mg PO BID [facility] Last Admin: 05/17/18 09:13 Dose: 25 mg Potassium Chloride (Klor Con Er Tab*) 20 meq PO DAILY [facility] Last Admin: 05/17/18 09:12 Dose: 20 meq Torsemide (Demadex*) 20 mg PO DAILY [facility] Last Admin: 05/17/18 09:12 Dose: 20 mg Vital Signs - 8 hr 05/17/18 05/17/18 05/17/18 05:38 06:48 07:34 Temperature 97.8 F Pulse Rate 80 Respiratory 14 18 20 Rate Blood Pressure 128/56 (mmHg) O2 Sat by Pulse 97 Oximetry 05/17/18 11:19 Temperature Pulse Rate 84 Respiratory 20 Rate Blood Pressure (mmHg) O2 Sat by Pulse 96 Oximetry Oxygen Devices in Use Now: None Appearance: chronically ill 62 yo female sitting up on the side of the bed in NAD A+O x3 Eyes: No Scleral Icterus, PERRLA Ears/Nose/Mouth/Throat: Mucous Membranes Moist Neck: NL Appearance and Movements; NL JVP Respiratory: Symmetrical Chest Expansion and Respiratory Effort Cardiovascular: NL Sounds; No Murmurs; No JVD, RRR, - - 2+ LE edema Abdominal: NL Sounds; No Tenderness; No Distention, - - obese Skin: - - left breast hard moderate size mass noted - skin is not warm/hot and no noted open area or erythema Neurological: Alert and Oriented x 3 Lines/Tubes/Other Access: Clean, Dry and Intact Peripheral IV Nutrition: Taking PO's Result Diagrams: 05/17/18 05:34 05/17/18 05:34 Microbiology and Other Data: Microbiology 05/08/18 19:00 Influenza Types A,B Antigen - Final Nasopharyngeal Specimen received for Influenza A/B Molecular testing Assess/Plan/Problems-Billing Assessment: Ms. Traylor is a 62 y.o female with a PMHX significant for Diastolic chf , Hodgkin's lymphoma, CAD, COPD, afib and left breast mass found on CT 03/2018. who presented to the ER with shortness of breath, cough and fatigue. 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 - Negative Influenza A&B - Blood cultures - no growth - Negative Urine antigens - Appreciate Pulmonology Input - Low probability of PE due to anticoagulation on admission and likely alternative explanation. (2) Acute respiratory failure with hypoxia Comment: - Due to Pneumonia - Resolved - Continue nebulizers. (3) Atrial fibrillation Comment: - Rivaroxaban on hold last dose 05/09, was bridged with Lovenox until 05/15 - per Dr. Rose continue to hold lovenox for pacer wed - Continue Tikosyn - QTc 497. - Had sinus pause after episode of Afib with RVR - Tachy-Leonidas syndrome - Appreciate Cardiology consult. - Metoprolol decreased due to pauses. - Occasional dropped beats, no other pauses, asymptomatic. (4) CHF (congestive heart failure) Comment: - Improving with diuresing - Acute on Chronic diastolic and Systolic heart failure - Lasix changed to torsemide. - low-dose lisinopril started 05/15 - EF on 04/06/18 was 45-50%. - Will need stress test either prior to discharge or as outpt (5) COPD (chronic obstructive pulmonary disease) Comment: - Mild exacerbation resolved - Continue nebs and inhalers (6) Breast mass Comment: - Mass, will need to follow up outpatient biopsy - discussed with radiology who stated not a problem to do biopsy after pacer is placed. - Discussed with PCP and stressed importance to patient. (7) Anxiety Comment: - Continue Klonipin nightly - PRN ativan low dose - Buspar PRN (8) History of Hodgkin's lymphoma Comment: - Not current issue. - With chronic R loculated pleural effusion, residual R hand neuropathy and left arm lymphedema as a complication of treatment. (9) Full code status (10) DVT prophylaxis Comment: - on hold for pacer - in request of aircraft engine cylinder mechanic Status and Disposition: Inpatient. Hopeful discharge to [facility] after Pacemaker.
[2018-05-17] MEDS: busPIRone TAB* 5 MG PO PRN (21:09)
[2018-05-17] MEDS: clonazePAM TAB(*) 1 MG PO SCH (23:43)
[2018-05-18] MEDS: Levothyroxine TAB* 75 MCG TAB PO SCH (05:12)
[2018-05-18] MEDS: NS 0.9% 1000 ML* 1,000 ML IV SCH (05:56)
[2018-05-18 06:08] LABS: ABS Basophils 0.1 10^3/ul (0-0.2); ABS Eosinophils 0.1 10^3/ul (0-0.6); ABS Lymphocytes 0.6 10^3/ul (1.0-4.8); ABS Monocytes 0.8 10^3/ul (0-0.8); ABS Neutrophils 6.3 10^3/ul (1.5-7.7); ABS Nucleated RBC 0 10^3/ul; Eosinophil % 0.8 % (0-6); Hematocrit 37 % (35-47); Lymphocyte % 7.6 % (25-47); Mean Corpuscular HGB Conc 32 g/dl (31-36); Mean Corpuscular Hemoglobin 28 pg (27-31); Mean Corpuscular Volume 87 fL (80-97); Mean Platelet Volume 7.6 fL (7.4-10.4); Nucleated Red Blood Cells % 0.1; Platelet Count 479 10^3/ul (150-450); Red Blood Count 4.24 10^6/ul (4.00-5.40); Red Cell Distribution Width 17 % (10.5-15); White Blood Count 7.7 10^3/ul (3.5-10.8)
[2018-05-18] MEDS ORDERED: ceFAZolin 2 GM PREMIX in ORs 2 GM/50 ML BAG IVPB ONE (07:00)
[2018-05-18 07:02] LABS: EGFR Non-African American 101.6 (>60)
[2018-05-18] MEDS: Ascorbic Acid TAB* 500 MG PO SCH (08:29)
[2018-05-18] MEDS: Potassium Chlor TAB* 20 MEQ TAB.ER PO SCH (08:29)
[2018-05-18] MEDS: Torsemide TAB* 20 MG PO SCH (08:29)
[2018-05-18] MEDS: Lactobacillus Acidophilus* 1 TAB PO SCH ×2 (08:29→20:59)
[2018-05-18] MEDS: Cholecalciferol TAB* 400 UNIT PO SCH (08:29)
--- NOTE | 2018-05-18 08:35 | PN ---
Subjective Date of Service: 05/18/18 - CC: SOB, SSS Interval History: Pt has a sore throat, she attributes to O2. She is coughing. Breathing is better since admission. She states when she walked last night her O2 sats went up to 100% on RA. The patient states that her breathing was actually poor on the day she was discharged and very very bad on the day of readmission. She had questions on details of the procedure which were reviewed in depth. Medications Active Medications: Acetaminophen (Tylenol Tab*) 650 mg PO Q6H PRN PRN Reason: FEVER/PAIN Albuterol (Ventolin Hfa Inhaler*) 2 puff INH Q2H PRN PRN Reason: SOB/WHEEZING Last Admin: 05/17/18 17:07 Dose: 2 puff Albuterol/Ipratropium (Duoneb (Albuterol 2.5 Mg/Ipratropium 0.5 Mg)) 1 neb INH [id number] AWAKE PRN PRN Reason: SOB/WHEEZING Ascorbic Acid (Vitamin C Tab*) 1,000 mg PO DAILY [facility] Last Admin: 05/18/18 08:29 Dose: Not Given Buspirone HCl (Buspar Tab*) 5 mg PO TID PRN PRN Reason: ANXIETY Last Admin: 05/17/18 21:09 Dose: 5 mg Cholecalciferol (Vitamin D Tab*) 400 unit PO DAILY [facility] Last Admin: 05/18/18 08:29 Dose: Not Given Clonazepam (Klonopin Tab(*)) 1 mg PO BEDTIME [facility] Last Admin: 05/17/18 23:43 Dose: 1 mg Dofetilide (Tikosyn Cap*) 125 mcg PO 1000,2200 [facility] Last Admin: 05/17/18 21:09 Dose: 125 mcg Sodium Chloride (Ns 0.9% 1000 Ml*) 1,000 mls @ 75 mls/hr IV PER RATE [facility] Last Admin: 05/18/18 05:56 Dose: 75 mls/hr Lactobacillus Rhamnosus (Lactobacillus Acidophilus*) 1 tab PO BID [facility] Last Admin: 05/18/18 08:29 Dose: Not Given Levothyroxine Sodium (Synthroid Tab*) 75 mcg PO DAILY@0600 [facility] Last Admin: 05/18/18 05:12 Dose: 75 mcg Lorazepam (Ativan Tab(*)) 0.5 mg PO Q12H PRN PRN Reason: ANXIETY Last Admin: 05/17/18 02:05 Dose: 0.5 mg Magnesium Oxide (Magox 400 Tab*) 800 mg PO 1200 [facility] Last Admin: 05/17/18 11:38 Dose: 800 mg Melatonin (Melatonin) 3 mg PO BEDTIME PRN PRN Reason: INSOMNIA Metoprolol Tartrate (Lopressor Tab*) 25 mg PO BID [facility] Last Admin: 05/17/18 21:09 Dose: 25 mg Potassium Chloride (Klor Con Er Tab*) 20 meq PO DAILY [facility] Last Admin: 05/18/18 08:29 Dose: Not Given Torsemide (Demadex*) 20 mg PO DAILY [facility] Last Admin: 05/18/18 08:29 Dose: Not Given Objective Vital Signs: Temp Pulse Resp BP Pulse Ox 97.7 F 89 20 131/62 91 05/18/18 03:04 05/18/18 07:58 05/18/18 07:58 05/18/18 07:58 05/18/18 07:58 Oxygen Devices in Use Now: None Appearance: older woman, in hosipital bed at 60 degrees, comfortable Eyes: No Scleral Icterus, PERRLA Ears/Nose/Mouth/Throat: Mucous Membranes Moist Neck: Trachea Midline, No Thyroid Enlargement, Masses Respiratory: - - Right base w/o air movement, marked crackles mid lung, few crackles left base. Cardiovascular: RRR - soft systolic murmur upper sternal border. Abdominal: - - active bowel sounds, non tender. Extremities: No Clubbing, Cyanosis - RUE lymphedema (chronic), legs free of edema, much improved from prior admissions Skin: No Rash or Ulcers Neurological: Alert and Oriented x 3 Laboratory Results: 05/18/18 05:19 05/18/18 05:19 INR (Anticoag Therapy) 2.74 (0.77-1.02) H 05/08/18 19:56 APTT 36.2 seconds (26.0-36.3) 05/08/18 19:56 Total Bilirubin 1.40 mg/dL (0.2-1.0) H 05/08/18 19:56 AST 20 U/L (13-39) 05/08/18 19:56 ALT 18 U/L (7-52) 05/08/18 19:56 Alkaline Phosphatase 53 U/L (34-104) 05/08/18 19:56 CK-MB (CK-2) 1.3 ng/mL (0.6-6.3) 05/08/18 19:56 B-Natriuretic Peptide 817 pg/mL (<=100) H 05/14/18 05:45 Total Protein 7.1 g/dL (6.4-8.9) 05/08/18 19:56 Albumin 3.2 g/dL (3.2-5.2) 05/08/18 19:56 Globulin 3.9 g/dL (2-4) 05/08/18 19:56 Albumin/Globulin Ratio 0.8 (1-3) L 05/08/18 19:56 TSH 4.27 mcIU/mL (0.34-5.60) 05/09/18 06:43 05/08/18 19:56 Troponin I 0.01 Diagnostic Imaging: CT chest ordered: prominent Right pleural effusion. EKG Data: Today: NSR, LBBB tele strips reviewed: Afib 100 bpm to spontaneous CV with SSNRT, 7 second sinus pause followed by SR, pauses and a full 30 seconds until NSR restored c/w pauses. Assessment/Plan Complex 62 yo female with PMHx HL, RT 1990, chronic lymphedema LUE, chronic biv CHF, right pleural effusion felt to be related to combination of issues including RT damage, hx PAF admitted with SOB, persistent large right pleural effusion following 2 recent admissions with aggressive diuresis. [place] to have pneumonia (I reviewed Dr Ceja's note). Afib in ED with spontaneous CV with SSNRT (slow sinus node recovery time). SSS: Pacer planned for today, anaesthesia requests echo as recommended by Dr Felix. Due to elevated CRP, improving, and risk of infection I updated CT, but no evidence of infection appreciated. ID work up negative (UC, BC, serologies). CHF: Chronic and improved from last several admissions. Await echo to see if changes from March. Pneumonia: Improving, apparently not felt to need a more prolonged course of abx, but CRP still up, stable several days. No pneumonia described by radiologist on today's CT. I defer to pulmonary/hospitalists on need for further treatment. If persistent bacteremia pt at risk for seeding device, I will discuss with Dr Ceja. Pleural effusion: Chronic, loculated. I do not think management of CHF is going to improve or change this. Hx VATS on right in addition to above. If felt important to improve I would recommend evaluation via pulmonary or possible procedural approach, but although it is impressive I doubt it is related to her acute presentation. CAD: Known branch disease and mild large vessel disease. Normal troponins on admissions since 2009. Continue with medical management and risk factor modification.
[2018-05-18] MEDS: Metoprolol Tartrate TAB* 50 mg PO SCH ×2 (09:30→20:58)
[2018-05-18] MEDS: Dofetilide CAP* 125 MCG PO SCH ×3 (09:30→23:40)
[2018-05-18] MEDS ORDERED: fentaNYL* 50 MCG/ML 2 ML VIAL (100 MCG VIAL) ONE (10:32)
[2018-05-18] MEDS ORDERED: Propofol* 10 MG/ML 20 ML BTL IV PUSH ONE ×2 (10:38→15:58)
[2018-05-18] MEDS ORDERED: Lidocaine 2% PF * 5 ML VIAL ONE (10:40)
[2018-05-18] MEDS: Magnesium Oxide TAB* 400 MG PO SCH (11:17)
--- NOTE | 2018-05-18 11:45 | ECHO ---
Patient: MINE PATEL [facility] Rec#: [id number] : 1955 Date: 05/18/2018 Age: 62y Height: 167.64 cm / 66.0 in Weight: 68.49 kg / 151.0 lbs Sex: F BSA: 1.77 Room#: 432 Admit Date#: 05/08/2018 Type: Inpatient Referring: Milena Rose MD Reading: Milena Rose MD Fiscal Economist: Khushbu Zendejas,RD,RDMS CC: Philip Chirinos MD Transthoracic Echocardiogram Indication: SOB, CHF, EDEMA BP: 131/62 HR: 85 Rhythm: NSR Findings History: AFIB, CAD, AOV stenosis, COPD, PHTN, lymphoma, edema Technical Comments: The study is technically limited due to the patient's history of COPD. The study was technically limited due to the patient's inability to lay in the left lateral decubitus position. Left Ventricle: The left ventricular chamber size is normal. Mild concentric left ventricular hypertrophy is observed. Global left ventricular wall motion and contractility are within normal limits. The estimated ejection fraction is 50-55%. The left ventricular diastolic filling pattern is consistent with pseudonormalization. The left ventricular diastolic filling pattern is consistent with both elevated mean left atrial pressure and elevated left ventricular end-diastolic pressure. Left Atrium: The left atrial chamber size is normal. Right Ventricle: The right ventricle is mild to moderately dilated. The right ventricular global systolic function is normal. Right Atrium: The right atrial cavity size is normal. Aortic Valve: The aortic valve leaflets are moderately thickened. Systolic excursion of the aortic valve cusps is reduced. There is aortic annular calcification. There is mild aortic regurgitation. There is mild to moderate aortic stenosis. The mean gradient of the aortic valve is 10.5 mmHg. The aortic valve area, by VTI's, is calculated at 1.1 cm2. Mitral Valve: There is mitral annular calcification. The mitral valve leaflets are mildly thickened. There is mild to moderate mitral regurgitation. There is no evidence of mitral stenosis. Tricuspid Valve: The tricuspid valve leaflets are normal. There is moderate tricuspid regurgitation. The right ventricular systolic pressure is estimated at 46 mmHg. There is evidence of mild to moderate pulmonary hypertension. Pulmonic Valve: The pulmonic valve appears normal. There is a trace pulmonic regurgitation. Pericardium: There is no significant pericardial effusion. A bilateral pleural effusion is present. Aorta: The ascending aorta is not well visualized. The aortic arch is not well visualized. The aortic root is normal in size. Pulmonary Artery: The main pulmonary artery appears normal. Venous: The inferior vena cava appears normal in size. There is no change in the dimension of the inferior vena cava with respiration consistent with markedly increased right atrial pressure. Conclusions Mild concentric left ventricular hypertrophy is observed. Global left ventricular wall motion and contractility are within normal limits. Abnormal left ventricular diastolic filling is observed, consistent with pseudonormal pattern, increased LAP and increased LVEDP. The estimated ejection fraction is 50-55%. The right ventricle is mild to moderately dilated. The right ventricular global systolic function is normal. There is mild aortic regurgitation. There is mild to moderate aortic stenosis. -The mean gradient of the aortic valve is 10.5 mmHg. -The aortic valve area, by VTI's, is calculated at 1.1 cm2. - DI 0.35. There is mild to moderate mitral regurgitation with MV sclerosis and mitral annular calcification. There is moderate tricuspid regurgitation. There is evidence of mild to moderate pulmonary hypertension: 46 mmHg. Pleural effusion is present. Compared with prior study of 04/04/18: EF previously 45-50%, aortic valve is stable, MR is stable, TR has increased from mild, PA pressure has increased from 38 mmHg. Measurements Name Value Normal Range RVIDd (AP) 2D 2.2 cm (0.9 - 2.6) RAd ISD 4CH 4.7 cm (3.4 - 4.9) RA (A4C)W 4.6 cm (2.9 - 4.6) IVSd (2D) 1.1 cm (0.6 - 1) LVPWd (2D) 0.9 cm (0.6 - 1) LVIDd (2D) 4 cm (3.6 - 5.4) LVIDs (2D) 3.1 cm - LV FS (2D) 21 % (25 - 45) Aortic Annulus 1.8 cm (1.4 - 2.6) Ao root diameter (2D) 3.4 cm (2.1 - 3.5) LA dimension (AP) 2D 2.9 cm (2.3 - 3.8) LAd ISD 4CH 4.8 cm (2.9 - 5.3) LA ISD 4CH W 4 cm (2.5 - 4.5) Name Value Normal Range LA ESV SP 4CH (A/L) 34.13 ml - LA ESV SP 2CH (A/L) 75.46 ml - LA ESV BP (A/L) 51.77 ml - LA ESV BP (A/L) index 29 ml/m2 - LA ESV SP 4CH (MOD) 32.56 ml - LA ESV SP 2CH (MOD) 71.66 ml - Name Value Normal Range MV E-wave Vmax 1.3 m/sec - MV deceleration time 222 msec - MV A-wave Vmax 0.7 m/sec - MV E:A ratio 1.9 ratio - LV septal e' Vmax 0.05 m/sec - LV lateral e' Vmax 0.06 m/sec - LV E:e' septal ratio 27 ratio - LV E:e' lateral ratio 22 ratio - Name Value Normal Range AV Vmax 2.1 m/sec - AV VTI 41.5 cm - AV peak gradient 17 mmHg - AV mean gradient 10.5 mmHg - LVOT diameter 2 cm - LVOT Vmax 0.7 m/sec - LVOT VTI 14.5 cm - LVOT peak gradient 2 mmHg - LVOT mean gradient 1.1 mmHg - DOI (VTI) 0.3 ratio - MARYLOU (continuity Vmax) 1 cm2 - MARYLOU (continuity VTI) 1.1 cm2 - [place] Vmax 1.5 m/sec - Name Value Normal Range MV Vmax 1.5 m/sec - MV VTI 33 cm - MV peak gradient 9 mmHg - MV mean gradient 3.1 mmHg - MV PHT 77 msec - MR Vmax 4.6 m/sec - MR VTI 134 cm - MR volume (PISA) 18.5 ml - MR flow (PISA) 63 ml/sec - MR ERO 0.14 cm2 - MR PISA radius 0.5 cm - MR alias Vmax 37 cm/sec - MVA (PHT) 2.9 cm2 - MVA (continuity VTI) 1.3 cm2 - Name Value Normal Range TR Vmax 3.1 m/sec - TR peak gradient 38 mmHg - RAP 8 mmHg - RVSP 46 mmHg - IVC diameter 2 cm - Name Value Normal Range PV Vmax 0.6 m/sec - PV peak gradient 1.4 mmHg -
[2018-05-18] MEDS ORDERED: Lidocaine 1% INJ* 10 MG/ML 30 ML SDV ONE (12:07)
[2018-05-18] MEDS ORDERED: Iohexol 300 (CONTRAST) 10 ML SDV ONE (12:44)
[2018-05-18] MEDS ORDERED: Vancomycin(*) 1,000 MG in NS 0.9% 250 ML* 250 ML IVPB ONE (13:00)
[2018-05-18] MEDS ORDERED: KCL 10 MEQ/50 ML IVPREMIX* 10 MEQ/50 ML BAG ONE (13:49)
[2018-05-18] MEDS ORDERED: Naloxone* 0.4 MG/ML 1 ML VIAL IV PRN (14:30)
[2018-05-18] MEDS ORDERED: Phenylephrine INJ* 50 MG in NS 0.9% 250 ML* 245 ML IV ONE (15:00)
[2018-05-18] MEDS ORDERED: Phenylephrine INJ* 50 MG in NS 0.9% 250 ML* 245 ML IV PRN (15:49)
--- NOTE | 2018-05-18 19:38 | PN ---
Subjective Date of Service: 05/18/18 Interval History: Patient seen and examined. Pending PM insertion today, however, ECHO was recommended and CT scan to further evaluate right lung. Patient states no SOB at rest, denies chest pain, denies fevers or chills. No acute overnight events. Family History: Unchanged from Admission Social History: Unchanged from Admission Past Medical History: Unchanged from Admission Objective Active Medications: Acetaminophen (Tylenol Tab*) 650 mg PO Q6H PRN PRN Reason: FEVER/PAIN Acetaminophen (Tylenol Tab*) 650 mg PO Q4H PRN PRN Reason: PAIN Albuterol (Ventolin Hfa Inhaler*) 2 puff INH Q2H PRN PRN Reason: SOB/WHEEZING Last Admin: 05/17/18 17:07 Dose: 2 puff Albuterol/Ipratropium (Duoneb (Albuterol 2.5 Mg/Ipratropium 0.5 Mg)) 1 neb INH [id number] AWAKE PRN PRN Reason: SOB/WHEEZING Ascorbic Acid (Vitamin C Tab*) 1,000 mg PO DAILY [facility] Last Admin: 05/18/18 08:29 Dose: Not Given Buspirone HCl (Buspar Tab*) 5 mg PO TID PRN PRN Reason: ANXIETY Last Admin: 05/17/18 21:09 Dose: 5 mg Cholecalciferol (Vitamin D Tab*) 400 unit PO DAILY [facility] Last Admin: 05/18/18 08:29 Dose: Not Given Clonazepam (Klonopin Tab(*)) 1 mg PO BEDTIME [facility] Last Admin: 05/17/18 23:43 Dose: 1 mg Dofetilide (Tikosyn Cap*) 125 mcg PO TID [facility] Last Admin: 05/18/18 16:58 Dose: 125 mcg Sodium Chloride (Ns 0.9% 1000 Ml*) 1,000 mls @ 75 mls/hr IV PER RATE [facility] Last Admin: 05/18/18 05:56 Dose: 75 mls/hr Lactobacillus Rhamnosus (Lactobacillus Acidophilus*) 1 tab PO BID [facility] Last Admin: 05/18/18 08:29 Dose: Not Given Levothyroxine Sodium (Synthroid Tab*) 75 mcg PO DAILY@0600 [facility] Last Admin: 05/18/18 05:12 Dose: 75 mcg Lorazepam (Ativan Tab(*)) 0.5 mg PO Q12H PRN PRN Reason: ANXIETY Last Admin: 05/17/18 02:05 Dose: 0.5 mg Magnesium Oxide (Magox 400 Tab*) 800 mg PO 1200 [facility] Last Admin: 05/18/18 11:17 Dose: Not Given Melatonin (Melatonin) 3 mg PO BEDTIME PRN PRN Reason: INSOMNIA Metoprolol Tartrate (Lopressor Tab*) 50 mg PO BID [facility] Potassium Chloride (Klor Con Er Tab*) 20 meq PO DAILY [facility] Last Admin: 05/18/18 08:29 Dose: Not Given Torsemide (Demadex*) 20 mg PO DAILY [facility] Last Admin: 05/18/18 08:29 Dose: Not Given Vital Signs - 8 hr 05/18/18 05/18/18 05/18/18 14:19 14:20 14:25 Temperature 97.7 F Pulse Rate 88 89 90 Respiratory 17 Rate Blood Pressure 131/85 117/88 (mmHg) O2 Sat by Pulse 98 100 97 Oximetry 05/18/18 05/18/18 05/18/18 14:30 14:35 14:40 Temperature Pulse Rate 86 85 85 Respiratory 34 32 32 Rate Blood Pressure 104/81 106/66 102/66 (mmHg) O2 Sat by Pulse 98 100 100 Oximetry 05/18/18 05/18/18 05/18/18 14:45 14:50 14:55 Temperature Pulse Rate 84 83 82 Respiratory 31 26 26 Rate Blood Pressure 102/64 89/64 93/60 (mmHg) O2 Sat by Pulse 99 99 98 Oximetry 05/18/18 05/18/18 05/18/18 15:00 15:01 15:10 Temperature Pulse Rate 82 82 82 Respiratory 30 25 26 Rate Blood Pressure 99/52 94/61 (mmHg) O2 Sat by Pulse 98 98 97 Oximetry 05/18/18 05/18/18 05/18/18 15:20 15:30 15:40 Temperature Pulse Rate 81 81 81 Respiratory 26 32 30 Rate Blood Pressure 90/63 101/56 100/59 (mmHg) O2 Sat by Pulse 96 95 95 Oximetry 05/18/18 05/18/18 05/18/18 15:50 16:00 16:01 Temperature Pulse Rate 80 81 81 Respiratory 25 29 26 Rate Blood Pressure 96/61 108/70 (mmHg) O2 Sat by Pulse 95 95 96 Oximetry 05/18/18 05/18/18 05/18/18 16:10 16:20 16:30 Temperature Pulse Rate 81 79 82 Respiratory 31 31 28 Rate Blood Pressure 107/67 121/67 121/68 (mmHg) O2 Sat by Pulse 96 97 95 Oximetry 05/18/18 05/18/18 05/18/18 16:58 17:00 17:14 Temperature Pulse Rate 83 Respiratory Rate Blood Pressure 169/110 133/71 (mmHg) O2 Sat by Pulse 96 Oximetry 05/18/18 05/18/18 05/18/18 17:15 17:27 17:57 Temperature 97.3 F Pulse Rate 83 Respiratory Rate Blood Pressure 145/70 151/87 (mmHg) O2 Sat by Pulse 94 Oximetry Oxygen Devices in Use Now: Nasal Cannula Appearance: alert, NAD Eyes: No Scleral Icterus, PERRLA Ears/Nose/Mouth/Throat: NL Teeth, Lips, Gums, Mucous Membranes Moist Neck: NL Appearance and Movements; NL JVP, Trachea Midline Respiratory: Symmetrical Chest Expansion and Respiratory Effort, - - right lung with decreased breath sounds, no wheeze, rales at bases Cardiovascular: NL Sounds; No Murmurs; No JVD, No Edema Abdominal: NL Sounds; No Tenderness; No Distention Extremities: No Edema, No Clubbing, Cyanosis Skin: No Rash or Ulcers Neurological: Alert and Oriented x 3, NL Gait Nutrition: - - NPO Result Diagrams: 05/18/18 05:19 05/18/18 05:19 Microbiology and Other Data: Microbiology 05/08/18 19:00 Influenza Types A,B Antigen - Final Nasopharyngeal Specimen received for Influenza A/B Molecular testing Assess/Plan/Problems-Billing Assessment: Ms. Traylor is a 62 y.o female with a PMHX significant for Diastolic chf , Hodgkin's lymphoma, CAD, COPD, afib and left breast mass found on CT 03/2018. who presented to the ER with shortness of breath, cough and fatigue. 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 Rose to characterize further before undergoing PM insertion today - Reviewed CT with Dr. Ceja, she has chronic effusion that was tapped in the past and is likely not infectious (3) Acute respiratory failure with hypoxia Code(s): J96.01 - ACUTE RESPIRATORY FAILURE WITH HYPOXIA SNOMED Code(s): 16864733 Comment: - After discussing with Dr. Ceja, this likely is not CAP but continued chronic right lung effusion - Continue O2 as needed - Nebs PRN - Improving, likely more 2/2 tachy-mason syndrome and failure (4) Atrial fibrillation Code(s): I48.91 - UNSPECIFIED ATRIAL FIBRILLATION SNOMED Code(s): 20312685 Comment: - Rivaroxaban on hold last dose 05/09, was bridged with Lovenox until 05/15 - per Dr. Rose continue to hold lovenox for pacer wed - Continue Tikosyn at increased dose per cardiology - QTc 497. - Had sinus pause after episode of Afib with RVR - Tachy-Mason syndrome - Appreciate Cardiology consult. - Metoprolol decreased due to pauses. - Occasional dropped beats, no other pauses, asymptomatic. (5) Breast mass Code(s): N63.0 - UNSPECIFIED LUMP IN UNSPECIFIED BREAST SNOMED Code(s): 22966168 Comment: - Mass, will need to follow up outpatient biopsy - discussed with radiology who stated not a problem to do biopsy after pacer is placed. - Discussed with PCP and stressed importance to patient. (6) CHF (congestive heart failure) Code(s): I50.9 - HEART FAILURE, UNSPECIFIED SNOMED Code(s): 25420717 Comment: - Continue diuresisng until euvolemic - Acute on Chronic diastolic and Systolic heart failure - Lasix changed to torsemide. - low-dose lisinopril started 05/15 - EF on 04/06/18 was 45-50%. - Will need stress test after discharge (7) History of Hodgkin's lymphoma Code(s): Z85.71 - PERSONAL HISTORY OF HODGKIN LYMPHOMA SNOMED Code(s): 299847481 Comment: - Not current issue. - With chronic R loculated pleural effusion, residual R hand neuropathy and left arm lymphedema as a complication of treatment. Status and Disposition: Inpatient, consider ARAM at discharge
[2018-05-18] MEDS: clonazePAM TAB(*) 1 MG PO SCH (21:51)
[2018-05-18] MEDS: Acetaminophen TAB* 325 MG PO PRN (21:52)
[2018-05-19] MEDS: NS 0.9% 1000 ML* 1,000 ML IV SCH ×2 (01:54→22:44)
[2018-05-19] MEDS: LORazepam TAB(*) 0.5 MG PO PRN (02:03)
[2018-05-19] MEDS: Levothyroxine TAB* 75 MCG TAB PO SCH (04:58)
[2018-05-19] MEDS: Acetaminophen TAB* 325 MG PO PRN ×3 (05:20→20:19)
--- NOTE | 2018-05-19 09:56 | PN ---
Subjective Date of Service: 05/19/18 - CC: leg edema, SOB Interval History: Breathing is better post pacer implantation. No incisional pain, slept well. I discussed increase in BB and Tikosyn with the patient. Medications Active Medications: Acetaminophen (Tylenol Tab*) 650 mg PO Q6H PRN PRN Reason: FEVER/PAIN Last Admin: 05/19/18 05:20 Dose: 650 mg Acetaminophen (Tylenol Tab*) 650 mg PO Q4H PRN PRN Reason: PAIN Albuterol (Ventolin Hfa Inhaler*) 2 puff INH Q2H PRN PRN Reason: SOB/WHEEZING Last Admin: 05/17/18 17:07 Dose: 2 puff Albuterol/Ipratropium (Duoneb (Albuterol 2.5 Mg/Ipratropium 0.5 Mg)) 1 neb INH [id number] AWAKE PRN PRN Reason: SOB/WHEEZING Ascorbic Acid (Vitamin C Tab*) 1,000 mg PO DAILY [facility] Last Admin: 05/18/18 08:29 Dose: Not Given Buspirone HCl (Buspar Tab*) 5 mg PO TID PRN PRN Reason: ANXIETY Last Admin: 05/17/18 21:09 Dose: 5 mg Cholecalciferol (Vitamin D Tab*) 400 unit PO DAILY [facility] Last Admin: 05/18/18 08:29 Dose: Not Given Clonazepam (Klonopin Tab(*)) 1 mg PO BEDTIME [facility] Last Admin: 05/18/18 21:51 Dose: 1 mg Dofetilide (Tikosyn Cap*) 125 mcg PO TID [facility] Last Admin: 05/18/18 23:40 Dose: 125 mcg Sodium Chloride (Ns 0.9% 1000 Ml*) 1,000 mls @ 75 mls/hr IV PER RATE [facility] Last Admin: 05/19/18 01:54 Dose: 75 mls/hr Lactobacillus Rhamnosus (Lactobacillus Acidophilus*) 1 tab PO BID [facility] Last Admin: 05/18/18 20:59 Dose: 1 tab Levothyroxine Sodium (Synthroid Tab*) 75 mcg PO DAILY@0600 [facility] Last Admin: 05/19/18 04:58 Dose: 75 mcg Magnesium Oxide (Magox 400 Tab*) 800 mg PO 1200 [facility] Last Admin: 05/18/18 11:17 Dose: Not Given Melatonin (Melatonin) 3 mg PO BEDTIME PRN PRN Reason: INSOMNIA Metoprolol Tartrate (Lopressor Tab*) 50 mg PO BID [facility] Last Admin: 05/18/18 20:58 Dose: 50 mg Potassium Chloride (Klor Con Er Tab*) 20 meq PO DAILY [facility] Last Admin: 05/18/18 08:29 Dose: Not Given Torsemide (Demadex*) 20 mg PO DAILY [facility] Last Admin: 05/18/18 08:29 Dose: Not Given Objective Vital Signs: Temp Pulse Resp BP Pulse Ox 98.1 F 76 26 131/73 97 05/18/18 23:30 05/19/18 06:00 05/19/18 04:05 05/18/18 21:57 05/19/18 06:00 Oxygen Devices in Use Now: Nasal Cannula Appearance: older woman, in hosipital bed at 60 degrees, shoulder immobilizer on RUE, appears comfortable Eyes: No Scleral Icterus, PERRLA Ears/Nose/Mouth/Throat: Mucous Membranes Moist Neck: Trachea Midline, No Thyroid Enlargement, Masses Respiratory: - - Right base w/o air movement, few crackles bases. Cardiovascular: RRR Abdominal: - - active bowel sounds, non tender. Extremities: No Clubbing, Cyanosis - RUE lymphedema (chronic), legs 1-2 + edema. Skin: No Rash or Ulcers Neurological: Alert and Oriented x 3 Laboratory Results: 05/18/18 05:19 05/18/18 05:19 INR (Anticoag Therapy) 2.74 (0.77-1.02) H 05/08/18 19:56 APTT 36.2 seconds (26.0-36.3) 05/08/18 19:56 Total Bilirubin 1.40 mg/dL (0.2-1.0) H 05/08/18 19:56 AST 20 U/L (13-39) 05/08/18 19:56 ALT 18 U/L (7-52) 05/08/18 19:56 Alkaline Phosphatase 53 U/L (34-104) 05/08/18 19:56 CK-MB (CK-2) 1.3 ng/mL (0.6-6.3) 05/08/18 19:56 B-Natriuretic Peptide 817 pg/mL (<=100) H 05/14/18 05:45 Total Protein 7.1 g/dL (6.4-8.9) 05/08/18 19:56 Albumin 3.2 g/dL (3.2-5.2) 05/08/18 19:56 Globulin 3.9 g/dL (2-4) 05/08/18 19:56 Albumin/Globulin Ratio 0.8 (1-3) L 05/08/18 19:56 TSH 4.27 mcIU/mL (0.34-5.60) 05/09/18 06:43 05/08/18 19:56 Troponin I 0.01 Diagnostic Imaging: CT chest ordered: prominent Right pleural effusion. CXR 05/18/18 and 05/19/18: good lead placement, no pneumothorax, stable effsusions R>L. EKG Data: Today: NSR, LBBB tele strips reviewed: Afib 100 bpm to spontaneous CV with SSNRT, 7 second sinus pause followed by SR, pauses and a full 30 seconds until NSR restored c/w pauses. Monitor post pacing: rare pacing. Pacemker interogation: A lead 513 Ohms P waves 1.8 mV, Pacing threshold 0.5 v 0.4 ms V lead 627 Ohms, R waves 8.8 mV, pacing threshold 0.5 V @ 0.4 ms. (good). Assessment/Plan Complex 62 yo female with PMHx HL, RT 1990, chronic lymphedema LUE, chronic biv CHF, right pleural effusion felt to be related to combination of issues including RT damage, hx PAF admitted with SOB, persistent large right pleural effusion following 2 recent admissions with aggressive diuresis. [place] to have pneumonia (I reviewed Dr Ceja's note). Afib in ED with spontaneous CV with SSNRT (slow sinus node recovery time). SSS: Pacer implanted yesterday. Good function and lead placement good. Needs Vanco through discharge. Wound check in a week with me. PAF: I increased Tikosyn and beta jairo and no further flutter overnight. CHF: Chronic and improved from last several admissions. Appears stable, continue diuretics medications and rhythm control. Pleural effusion: Chronic, loculated. I do not think management of CHF is going to improve or change this. CAD: Continue with medical management and risk factor modification.
[2018-05-19] MEDS: Ascorbic Acid TAB* 500 MG PO SCH (10:01)
[2018-05-19] MEDS: Potassium Chlor TAB* 20 MEQ TAB.ER PO SCH (10:01)
[2018-05-19] MEDS: Torsemide TAB* 20 MG PO SCH (10:01)
[2018-05-19] MEDS: Lactobacillus Acidophilus* 1 TAB PO SCH ×2 (10:01→20:23)
[2018-05-19] MEDS: Metoprolol Tartrate TAB* 50 mg PO SCH ×2 (10:02→20:21)
[2018-05-19] MEDS: Cholecalciferol TAB* 400 UNIT PO SCH (10:02)
[2018-05-19] MEDS: Dofetilide CAP* 125 MCG PO SCH ×3 (10:02→21:02)
[2018-05-19] MEDS: Magnesium Oxide TAB* 400 MG PO SCH (12:05)
--- NOTE | 2018-05-19 12:23 | PN ---
Subjective Date of Service: 05/19/18 Interval History: Patient seen and examined. States she is feeling well/improved since PM insertion. Denies SOB, no chest pain, no fevers or chills. No changes on telemetry overnight. Family History: Unchanged from Admission Social History: Unchanged from Admission Past Medical History: Unchanged from Admission Objective Active Medications: Acetaminophen (Tylenol Tab*) 650 mg PO Q6H PRN PRN Reason: FEVER/PAIN Last Admin: 05/19/18 05:20 Dose: 650 mg Acetaminophen (Tylenol Tab*) 650 mg PO Q4H PRN PRN Reason: PAIN Albuterol (Ventolin Hfa Inhaler*) 2 puff INH Q2H PRN PRN Reason: SOB/WHEEZING Last Admin: 05/17/18 17:07 Dose: 2 puff Albuterol/Ipratropium (Duoneb (Albuterol 2.5 Mg/Ipratropium 0.5 Mg)) 1 neb INH [id number] AWAKE PRN PRN Reason: SOB/WHEEZING Ascorbic Acid (Vitamin C Tab*) 1,000 mg PO DAILY [facility] Last Admin: 05/19/18 10:01 Dose: 1,000 mg Buspirone HCl (Buspar Tab*) 5 mg PO TID PRN PRN Reason: ANXIETY Last Admin: 05/17/18 21:09 Dose: 5 mg Cholecalciferol (Vitamin D Tab*) 400 unit PO DAILY [facility] Last Admin: 05/19/18 10:02 Dose: 400 unit Clonazepam (Klonopin Tab(*)) 1 mg PO BEDTIME [facility] Last Admin: 05/18/18 21:51 Dose: 1 mg Dofetilide (Tikosyn Cap*) 125 mcg PO TID [facility] Last Admin: 05/19/18 10:02 Dose: 125 mcg Sodium Chloride (Ns 0.9% 1000 Ml*) 1,000 mls @ 75 mls/hr IV PER RATE [facility] Last Admin: 05/19/18 01:54 Dose: 75 mls/hr Lactobacillus Rhamnosus (Lactobacillus Acidophilus*) 1 tab PO BID [facility] Last Admin: 05/19/18 10:01 Dose: 1 tab Levothyroxine Sodium (Synthroid Tab*) 75 mcg PO DAILY@0600 [facility] Last Admin: 05/19/18 04:58 Dose: 75 mcg Magnesium Oxide (Magox 400 Tab*) 800 mg PO 1200 [facility] Last Admin: 05/19/18 12:05 Dose: 800 mg Melatonin (Melatonin) 3 mg PO BEDTIME PRN PRN Reason: INSOMNIA Metoprolol Tartrate (Lopressor Tab*) 50 mg PO BID [facility] Last Admin: 05/19/18 10:02 Dose: 50 mg Potassium Chloride (Klor Con Er Tab*) 20 meq PO DAILY [facility] Last Admin: 05/19/18 10:01 Dose: 20 meq Torsemide (Demadex*) 20 mg PO DAILY [facility] Last Admin: 05/19/18 10:01 Dose: 20 mg Vital Signs - 8 hr 05/19/18 05/19/18 05/19/18 05:00 06:00 08:00 Temperature Pulse Rate 76 Respiratory 17 Rate Blood Pressure (mmHg) O2 Sat by Pulse 97 97 Oximetry 05/19/18 05/19/18 08:32 09:00 Temperature 98.3 F Pulse Rate 79 Respiratory 16 Rate Blood Pressure 146/95 (mmHg) O2 Sat by Pulse 96 95 Oximetry Oxygen Devices in Use Now: None Appearance: Alert, NAD Eyes: No Scleral Icterus, PERRLA Ears/Nose/Mouth/Throat: NL Teeth, Lips, Gums, Mucous Membranes Moist Neck: NL Appearance and Movements; NL JVP, Trachea Midline Respiratory: Symmetrical Chest Expansion and Respiratory Effort, Clear to Auscultation Cardiovascular: NL Sounds; No Murmurs; No JVD, - - pacing Abdominal: NL Sounds; No Tenderness; No Distention Extremities: No Clubbing, Cyanosis, - - LUE lymphedema at baseline Skin: - - dressing CDI, improved skin color, less pale Neurological: Alert and Oriented x 3 Nutrition: Taking PO's Result Diagrams: 05/18/18 05:19 05/18/18 05:19 Microbiology and Other Data: Microbiology 05/08/18 19:00 Influenza Types A,B Antigen - Final Nasopharyngeal Specimen received for Influenza A/B Molecular testing Assess/Plan/Problems-Billing Assessment: This is a 62 y.o female with a PMHX significant for Diastolic chf , Hodgkin's lymphoma, CAD, COPD, afib and left breast mass found on CT 03/2018. who presented to the ER with shortness of breath, cough and fatigue. Found to have an abnormal chest xray with clinical concern for HCAP - she was also found to have tachybrady syndrome, and now s/p PM insertion. - Patient Problems (1) Tachy-mason syndrome Code(s): I49.5 - SICK SINUS SYNDROME SNOMED Code(s): 49483867 Comment: - PM inserted 05/18/18 - Continue vanco for post-op prophy - Cardiology managing, progressing well (2) Chronic pleural effusion Code(s): J90 - PLEURAL EFFUSION, NOT ELSEWHERE CLASSIFIED SNOMED Code(s): 52826264 Comment: - CT reviewed prior to PM insertion, this is a chronic effusion that was tapped in the past and is likely not infectious, discussed with Dr. Ceja - Currently at baseline with no respiratory distress (3) Acute respiratory failure with hypoxia Code(s): J96.01 - ACUTE RESPIRATORY FAILURE WITH HYPOXIA SNOMED Code(s): 29731491 Comment: - Resolved, likely more 2/2 tachy-mason syndrome and failure rather than chronic effusion or CAP (4) Atrial fibrillation Code(s): I48.91 - UNSPECIFIED ATRIAL FIBRILLATION SNOMED Code(s): 70753471 Comment: - Rivaroxaban on hold last dose 05/09, was bridged with Lovenox until 05/15 - per Dr. Rose continue to hold lovenox for pacer insertion and restart xarelto at DC - Continue Tikosyn at increased dose per cardiology and BB (5) Breast mass Code(s): N63.0 - UNSPECIFIED LUMP IN UNSPECIFIED BREAST SNOMED Code(s): 66156709 Comment: - Follow up outpatient biopsy - ok per radiology to perform biopsy after pacer is placed. - Per record, this was discussed with patient at length and importance of follow up for mammogram and biopsy (6) CHF (congestive heart failure) Code(s): I50.9 - HEART FAILURE, UNSPECIFIED SNOMED Code(s): 89554018 Comment: - Acute on Chronic diastolic and Systolic heart failure, continue diuresisng until euvolemic - Lasix changed to torsemide. - low-dose lisinopril started 05/15 - EF on 04/06/18 was 45-50%. - Will need stress test after discharge (7) History of Hodgkin's lymphoma Code(s): Z85.71 - PERSONAL HISTORY OF HODGKIN LYMPHOMA SNOMED Code(s): 263098531 Comment: - Not current issue. - With chronic R loculated pleural effusion, residual R hand neuropathy and left arm lymphedema as a complication of treatment. Status and Disposition: Inpatient, plan to DC to [facility] when clear by cardiology.
[2018-05-19] MEDS ORDERED: Vancomycin(*) 0 MG in NS 0.9% 250 ML* 250 ML IVPB SCH (13:00)
[2018-05-19] MEDS ORDERED: Vancomycin(*) 1,250 MG IV x ONCE IVPB ONE ×2 (13:00)
[2018-05-19] MEDS ORDERED: NS 0.9% 250 ML* 250 ML ONE (14:36)
[2018-05-19] MEDS ORDERED: Vancomycin per Pharmacy* NOTE FOLLOW UP PRN (14:54)
[2018-05-19] MEDS: clonazePAM TAB(*) 1 MG PO SCH (20:21)
[2018-05-19] MEDS: busPIRone TAB* 5 MG PO PRN (20:30)
[2018-05-19] MEDS: Vancomycin(*) 750 MG in NS 0.9% 250 ML* 250 ML IVPB SCH (22:45)
[2018-05-20] MEDS: Acetaminophen TAB* 325 MG PO PRN ×2 (02:32→13:39)
[2018-05-20] MEDS: Levothyroxine TAB* 75 MCG TAB PO SCH (05:43)
[2018-05-20] MEDS: Vancomycin(*) 750 MG in NS 0.9% 250 ML* 250 ML IVPB SCH (06:53)
[2018-05-20] MEDS: Ascorbic Acid TAB* 500 MG PO SCH (08:22)
[2018-05-20] MEDS: Metoprolol Tartrate TAB* 50 mg PO SCH (08:23)
[2018-05-20] MEDS: Lactobacillus Acidophilus* 1 TAB PO SCH (08:23)
[2018-05-20] MEDS: Cholecalciferol TAB* 400 UNIT PO SCH (08:23)
[2018-05-20] MEDS: Torsemide TAB* 20 MG PO SCH (08:23)
[2018-05-20] MEDS: Dofetilide CAP* 125 MCG PO SCH ×2 (08:23→13:40)
[2018-05-20] MEDS: Potassium Chlor TAB* 20 MEQ TAB.ER PO SCH (09:33)
[2018-05-20] MEDS: Magnesium Oxide TAB* 400 MG PO SCH (12:08)
[2018-05-20 12:27] VITALS: BP 128/72
--- NOTE | 2018-05-20 14:12 | DS ---
CC: Dr. Philip Chirinos; Dr. Pablito Felix, Cardiology; Dr. Milena Rose, Cardiology * DATE OF ADMISSION: 05/08/2018. DATE OF DISCHARGE: 05/20/2018. PRIMARY CARE PHYSICIAN: Dr. Philip Chirinos. MY ATTENDING PHYSICIAN FOR TODAY: Dr. Delacruz * (dictated by Elidia Goff NP). HOSPITAL COURSE: This is a 62-year-old female patient with a past medical history of diastolic heart failure, atrial fibrillation, coronary artery disease , COPD, pulmonary hypertension, Hodgkin's lymphoma with a VATS procedure in 2011 , chronic right loculated pleural effusions of the right lung, chronic lymphedema of the left upper extremities, and also a recent finding of a left breast mass diagnosed in March. The patient had just been recently discharged from the hospital prior to this admission. She was sent to [facility] for short-term rehabilitation. She was sent to the hospital a couple of days later. She had been treated for an exacerbation of her congestive heart failure; however, she returned with continued shortness of breath and malaise. The patient states that she did not have any fever or any other symptoms at that time; however, it was noted in the emergency department that she appeared to either be having a pulmonary process versus a continuation of an exacerbation of her congestive heart failure. Her BNP was elevated at that time , but it was not that far above her baseline. She also had an elevated white count and an elevated CRP. For these reasons, it was thought, given her loculated effusions, that she would be treated for a healthcare associated pneumonia. The patient was started on Aztreonam and Vancomycin. Blood cultures were negative. She had DuoNebs and also supportive care. During this time, it was noted that she did have a sinus pause on telemetry. At that point, the patient was evaluated by Cardiology. It was determined that she was having a tachybrady syndrome and was a candidate for a pacemaker. Because of the loculated right pleural effusions, however, they were still concerned that she had an active infection. We sent her for a CTA of the chest which was also evaluated by Dr. Ceja. Essentially her chronic loculated effusions are not infectious. At that time, she was cleared to undergo her procedure. She underwent insertion of her pacemaker on the 18 of May. She had an uneventful postprocedure course. Her medications were titrated by Cardiology and she was readied for discharge to [facility]. Also of significant note, her leukocytosis resolved. She also had a trended down of her CRP. Again, these all appear to be chronic changes and her shortness of breath is likely more related to her tachybrady syndrome and her arrhythmias, rather than continuing pulmonary issues. Her postprocedure chest x-ray on 05/19/2018 showed her pacemaker with adequate placement. Her telemetry had no further changes. Her underlying rhythm is atrial fibrillation. Her anticoagulation had been stopped prior to procedure, but will be restarted at discharge. DISCHARGE DIAGNOSES: 1. Tachybrady syndrome, status post pacemaker insertion. 2. Chronic right pleural effusion. 3. Acute respiratory failure with hypoxia, resolved. 4. History of atrial fibrillation, controlled. 5. Breast mass of the left breast. 6. Chronic congestive heart failure, mixed diastolic and systolic. 7. History of Hodgkin's lymphoma, currently stable. MEDICATIONS ON DISCHARGE: 1. [place]-3 fish oil one capsule daily. 2. Metoprolol Tartrate 50 mg p.o. b.i.d. 3. Levothyroxine 75 mcg daily. 4. Acidophilus one cap 2 times a day. 5. Torsemide 20 mg p.o. daily. 6. Clotrimazole cream apply 2 times daily. 7. Cholecalciferol 400 units p.o. daily. 8. Calcium/Magnesium/vitamin D3 combination two tabs p.o. b.i.d. 9. Vitamin C 1,000 mg daily. 10. Albuterol inhaler two puffs q.6 hours as needed. 11. Ranitidine 150 mg daily. 12. Clonazepam 1 mg at bedtime. 13. Vitamin B complex one caplet p.o. daily. 14. Coenzyme Q10 100 mg p.o. daily. 15. Xarelto 20 mg daily. 16. Resveratrol 100 mg in the evening. 17. Potassium Chloride 20 mEq daily. 18. BuSpar 5 mg three times a day as needed. 19. Mag-Ox 800 mg p.o. daily. 20. Dofetilide 125 mcg p.o. 3 times daily. REVIEW OF SYSTEMS: The patient is complaining of some soreness in the right chest at her insertion site; however, she does not have any fever, fatigue, or chills, no chest pain, no active shortness of breath, no abdominal pain, no nausea, no vomiting, no arthralgias or myalgias, and no further constitutional complaints. PHYSICAL EXAMINATION TODAY: Vital Signs: Blood pressure 128/72, heart rate 72 pacing, respiratory rate 20, O2 saturation 95 percent on room air with a temperature of 98.8. HEENT: The patient is atraumatic, normocephalic, PERRLA with nonicteric sclerae. Oral mucosa is moist. Tongue is midline. Neck: Supple, nontender. No JVD noted. No carotid bruit auscultated. Cardiovascular : S1, S2 present. No murmurs, gallops, or rubs noted. Rate and rhythm are currently regular. She is intermittent pacing on telemetry. Right chest wound is clean, dry, and intact. No exudate or erythema noted. Lungs: Clear bilaterally to auscultation with no rhonchi or rales. Slightly diminished at the bases. Abdomen: Soft, nontender, nondistended. Positive bowel sounds all four quadrants : Deferred. Musculoskeletal: There is no clubbing and no cyanosis. She has edema of the left upper extremity secondary to lymphedema, at her baseline currently. She has +2 distal pulses, a steady gait, full range of motion. Gross motor and sensation are intact. Neurologic: Grossly intact with no focal deficits. Psychiatric: She is cooperative and appropriate. LABORATORY DATA: WBC 7.7, RBC 4.24, hemoglobin 12.0, hematocrit 37, platelets 479; sodium 138, potassium 2.8, chloride 91, CO2 40, creatinine 0.60, GFR 101.6 , glucose 96, calcium 8.7, CRP 70.38 which is down from 240.8 at admission. Urinalysis shows no acute infected process. IMAGING: Chest x-ray dated 05/19/2018 shows bilateral pleural effusions with the right greater than left, right basilar atelectasis, and pulmonary vascular congestion. A right-sided pacemaker is noted. DISPOSITION: The patient will be discharged to [facility]. DIET: Heart-healthy, low sodium as tolerated. ACTIVITY: She has a right arm restriction secondary to pacemaker site and also a left arm restriction secondary to lymphedema. Otherwise, activity and physical therapy as tolerated. FOLLOW-UP: The patient was instructed to follow-up with Dr. Philip Chirinos, primary care provider, after discharge from subacute rehab and with Dr. Milena Rose in one to two weeks also after discharge from subacute rehab. Also, the patient was told to follow-up with Dr. Valverde for ultrasound-guided breast biopsy. She will need to call and schedule this as an outpatient to assess the lump on the left breast. The patient was discharged in stable condition. All questions were answered. The patient stated her understanding of her discharge instructions, her medications, and her follow-ups at discharge. Please also let this discharge summary serve as the admission history and physical to [facility] for her admission at that facility. Time Spent: 35 minutes on discharge coordination and planning. ELIDIA GOFF NP [id number]/CPS #: [id number]/CPS #: [id number] SHRAVAN
[2018-05-20] MEDS ORDERED: Vancomycin Trough Check NOTE FOLLOW UP ONE (14:30)
--- NOTE | 2018-05-20 14:34 | DS ---
CC: Dr. Delacruz CONTINUATION OF DISCHARGE SUMMARY DATE OF ADMISSION: 05/08/2018. DATE OF DISCHARGE: 05/20/2018. Chest x-ray: A right-sided pacemaker is noted. DISPOSITION: The patient will be discharged to [facility]. DIET: Heart-healthy, low sodium as tolerated. ACTIVITY: She has a right arm restriction secondary to pacemaker site and also a left arm restrictio n secondary to lymphedema. Otherwise, activity and physical therapy as tolerated. FOLLOW-UP: The patient was instructed to follow-up with Dr. Philip Chirinos, primary care provider, a fter discharge from subacute rehab and with Dr. Milena Rose in one to two weeks also after discharge from subacute rehab. Also, the patient was told to follow-up with Dr. Valverde for ultrasound-guid ed breast biopsy. She will need to call and schedule this as an outpatient to assess the lump on the left breast. The patient was discharged in stable condition. All questions were answered. The patient stated her u nderstanding of her discharge instructions, her medications, and her follow-ups at discharge. Please also let this discharge summary serve as the admission history and physical to [facility] her admission at that facility. ELIDIA MISTRY NP [id number]/[facility] #: [id number]
--- NOTE | 2018-05-27 21:26 | OP ---
CC: Philip Chirinos MD * DUAL-CHAMBER PACEMAKER IMPLANTATION: DATE OF OPERATION: 05/19/18 - ROOM #[id number] DATE OF : 57 SURGEON: Milena Rose MD ANESTHESIA: See anesthesia notes. PRE-OP DIAGNOSIS: Sick sinus syndrome with slow sinus node recovery time. POST-OP DIAGNOSIS: Sick sinus syndrome with slow sinus node recovery time. OPERATIVE PROCEDURE: Dual-chamber pacemaker implantation. ESTIMATED BLOOD LOSS: Less than 5 cc. COMPLICATIONS: None. INDICATIONS: The patient is right handed; however, she has significant lymphedema in the left upper extremity and neuropathy in the right. After extensive discussion, the decision was made to place it in the right side as she feels that her left arm has the most function. DESCRIPTION OF PROCEDURE: The right subclavian fossa was prepped and draped in the usual sterile fashion and the time-out was called. Following this, the patient received 10 cc of radiopaque dye in the right upper extremity outlining the right axillary and right subclavian vein. Following this, the patient received 1% lidocaine approximately 20 cc in the right subclavian fossa and using a modified Seldinger technique, the right subclavian vein was cannulated, the guidewire inserted using fluoroscopic guidance and extended into the right atrium. This procedure is repeated with a second guidewire. Using an introducer technique, the right ventricular lead was guided into the right ventricular apex, actively fixed in place. Pacing and sensing thresholds were good. Using the second guidewire and the second introducer, the right atrial lead was guided into the right atrial appendage, actively faxed in place. Pacing and sensing thresholds were found to be good. The leads were then sutured to the pocket using 0 silk suture. The pocket was copiously irrigated. The leads were attached to the generator. The generator was placed in the pocket. Thresholds were rechecked and found to be good. The incision was then closed with 2 layers of resorbable suture, 2-0 followed by 4- 0 followed by evelyn and an external dressing. FINDINGS: The system is a Better [employer] MRI compatible system. The device is a [employer] Elena XT DR MRI [id number], serial number [id number]. The atrial lead is a Medtronic model 5076-45, serial number [id number], the ventricular lead is a Medtronic model 5076-52, serial number [id number]. Atrial lead impedance was 513 ohms with P waves sensed at 2 millivolts and an atrial pacing threshold of 0.5 volts at 0.4 milliseconds. The ventricular lead impedance was 627 ohms with R-wave sensed at 8.6 millivolts and a ventricular pacing threshold of 0.5 volts at 0.4 milliseconds. The patient was hemodynamically stable throughout the procedure. During the procedure, the patient was in and out of atrial flutter which led to transient hypotension. See anesthesia notes some esmolol, but she did require 3 external cardioversions, was given IV potassium in addition to the esmolol and after the potassium, she maintained sinus rhythm and her blood pressures improved and at the time of transfer to Recovery, she was hemodynamically stable. The device was programmed initially and dual chamber noted a low rate of 60 beats per minute. [id number]/[facility] #: [id number] SHRAVAN
== END 2018-05-20 16:00 | DRG 171 ==
LOC: ED 17:55 → MED 21:06 → MEDTELE 05-14 11:14
PROVIDERS: ADMIT Internal Medicine; ATTEND Internal Medicine
PROC: 0JH606Z Insertion of Pacemaker, Dual Chamber into Chest Subcutaneous Tissue and Fascia, Open Approach (ICD-10-PCS; principal; 2018-05-08)
PROC: 02H63JZ Insertion of Pacemaker Lead into Right Atrium, Percutaneous Approach (ICD-10-PCS; 2018-05-08)
PROC: 02HK3JZ Insertion of Pacemaker Lead into Right Ventricle, Percutaneous Approach (ICD-10-PCS; 2018-05-08)
DX: I49.5 Sick sinus syndrome (principal); I50.43 Acute on chronic combined systolic (congestive) and diastolic (congestive) heart failure; J96.01 Acute respiratory failure with hypoxia; J18.9 Pneumonia, unspecified organism; E87.1 Hypo-osmolality and hyponatremia; J44.0 Chronic obstructive pulmonary disease with (acute) lower respiratory infection; J44.1 Chronic obstructive pulmonary disease with (acute) exacerbation; I48.0 Paroxysmal atrial fibrillation; I25.10 Atherosclerotic heart disease of native coronary artery without angina pectoris; I27.20 Pulmonary hypertension, unspecified; E03.9 Hypothyroidism, unspecified; K21.9 Gastro-esophageal reflux disease without esophagitis; F43.10 Post-traumatic stress disorder, unspecified; I45.81 Long QT syndrome; I08.3 Combined rheumatic disorders of mitral, aortic and tricuspid valves; F41.9 Anxiety disorder, unspecified; N63.0 Unspecified lump in unspecified breast; G62.9 Polyneuropathy, unspecified; E78.5 Hyperlipidemia, unspecified; R41.0 Disorientation, unspecified; I44.7 Left bundle-branch block, unspecified; Z85.6 Personal history of leukemia; Z80.8 Family history of malignant neoplasm of other organs or systems; Z87.891 Personal history of nicotine dependence; Z90.89 Acquired absence of other organs; Z88.1 Allergy status to other antibiotic agents; Z88.0 Allergy status to penicillin; Z88.8 Allergy status to other drugs, medicaments and biological substances; Z85.72 Personal history of non-Hodgkin lymphomas; Z90.81 Acquired absence of spleen; Z80.2 Family history of malignant neoplasm of other respiratory and intrathoracic organs; Z92.3 Personal history of irradiation; Z79.01 Long term (current) use of anticoagulants; Z85.71 Personal history of Hodgkin lymphoma
CPT/HCPCS: 33208; 36415; 71045; 71046; 71250; 80048; 80053; 80202; 81003; 81015; 82550; 82553; 82565; 83605; 83735; 83880; 84145; 84439; 84443; 84484; 84520; 85025; 85379; 85610; 85652; 85730; 86140; 87040; 87045; 87046; 87086; 87899; 92960; 93005; 93306; 94640; 99284; A9270-GY; C1785; C1898; J0690; J1650; J1940; J2704; J3010; J3370; J3475; J3480; Q9967

== ENCOUNTER → 2018-08-04 18:52 | Emergency (ER) | payer OTHER ==
--- NOTE | 2018-08-04 19:34 | ED ---
Palpitations / Dysrhythmia - HPI Summary HPI Summary: This patient is a 62 year old F brought in by ambulance to [facility] with a chief complaint of heart palpitations since 16:00. Pt reports her symptoms have resolved since her arrival to [facility]. Pt notes that she received a breast CA 2 days ago. The patient rates the pain 0/10 in severity. Symptoms aggravated by recent stress. Symptoms alleviated by rest. Patient reports weakness. Patient denies WOOD, CP, SOB, nausea, or diarrhea. Hx atrial flutter and Hodgkins lymphoma in remission. Pt notes that she has a pacemaker. - History of Current Complaint Chief Complaint: EDWeakness Time Seen by Provider: 08/04/18 19:19 Hx Obtained From: Patient Onset/Duration: Sudden Onset, Lasting Minutes, Resolved Severity Initially: Mild Severity Currently: None Character: Fast, Fluttering Aggravating: Other - stress Alleviating: Rest - Allergy/Home Medications Allergies/Adverse Reactions: Allergies Allergy/AdvReac Type Severity Reaction Status Date / Time sotalol Allergy Unknown Unknown Verified 05/02/18 12:06 Reaction Details clindamycin Allergy Tachycardia Verified 05/02/18 12:06 [email or web address] Allergy Anaphylatic Verified 05/02/18 12:06 Shock penicillin G Allergy Anaphylatic Verified 05/02/18 12:06 Shock Penicillins Allergy Anaphylatic Verified 05/02/18 12:06 Shock levofloxacin AdvReac Itching Verified 05/08/18 22:21 PMH/Surg Hx/FS Hx/Imm Hx Endocrine/Hematology History: Reports: Hx Thyroid Disease Denies: Hx Diabetes Cardiovascular History: Reports: Hx Congestive Heart Failure, Hx Pacemaker/ICD, Other Cardiovascular Problems/Disorders - A-flutter history; takes Xarelto, Tikosyn, metoprolol; lymphedema left arm Denies: Hx Coronary Artery Disease Respiratory History: Reports: Hx Chronic Bronchitis, Hx Chronic Obstructive Pulmonary Disease (COPD), Hx Pleural Effusion Denies: Hx Asthma GI History: Reports: Hx Gastroesophageal Reflux Disease History: Reports: Other Problems/Disorders - 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 Psychiatric History: Reports: Hx Post Traumatic Stress Disorder - Cancer History Cancer Type, Location and Year: hx of hodgkins lymphoma diagnosed in 1987. treated with chemo and radiation. Breast CA diagnosed 08/02/18 Hx Chemotherapy: Yes - HX OF HODKINS LYMPHOMA 1990 Hx Radiation Therapy: Yes - Surgical History Surgery Procedure, Year, and Place: THORACOTOMY, exploratory laparotomy for lymphoma Hx Anesthesia Reactions: No - Immunization History Date of Influenza Vaccine: not in 2017 Infectious Disease History: No Infectious Disease History: Reports: Hx Shingles Denies: Traveled Outside the [place] in Last 30 Days - Family History Known Family History: Positive: Other - Aunt/father with throat cancer - Social History Alcohol Use: None Hx Substance Use: No Substance Use Type: Reports: Marijuana Substance Use Comment - Amount & Last Used: Marijuana oil 10 days ago Hx Tobacco Use: Yes Smoking Status (MU): Former Smoker Type: Cigarettes Amount Used/How Often: 10 years 1 ppd; plus 10 years 5 cigarettes/day Have You Smoked in the Last Year: No Review of Systems Negative: Epistaxis Positive: Palpitations. Negative: Chest Pain Negative: Shortness Of Breath Negative: Diarrhea, Nausea Negative: Headache All Other Systems Reviewed And Are Negative: Yes Physical Exam - Summary Physical Exam Summary: Appearance: Well-appearing, Well-nourished, lying in bed comfortably Skin: Warm, dry, no obvious rash Eyes: sclera anicteric, no conjunctival pallor ENT: mucous membranes moist, pharynx appears normal Neck: Supple, nontender Respiratory: Clear to auscultation, no signs of respiratory distress Cardiovascular: Mild tachycardia with pulse at approximately 102 bpm. Normal S1 , S2. No murmurs. Normal distal pulses in tibial and radial bilaterally. Abdomen: Soft, nontender, normal active bowel sounds present Musculoskeletal: Normal, Strength/ROM Intact Neurological: A&Ox3, awake and alert, mentation is normal, speech is fluent and appropriate Psychiatric: affect is normal, does not appear anxious or depressed Triage Information Reviewed: Yes Vital Signs On Initial Exam: Initial Vitals Temp Pulse Resp BP Pulse Ox 100.1 F 101 18 152/83 98 08/04/18 18:56 08/04/18 18:56 08/04/18 18:56 08/04/18 18:56 01/24/19 18:56 Vital Signs Reviewed: Yes Diagnostics - Vital Signs Vital Signs Temp Pulse Resp BP Pulse Ox 08/04/18 18:56 100.1 F 101 18 152/83 98 - Laboratory Lab Statement: Any lab studies that have been ordered have been reviewed, and results considered in the medical decision making process. - EKG 18:52 Cardiac Rate: Tachycardia - at 106 bpm EKG Rhythm: Sinus Tachycardia ST Segment: Normal Ectopy: None Summary of EKG Findings: sinus tachycardia at 106 bpm. Course/Dx - Course Course Of Treatment: This patient is a 62 year old F brought in by ambulance to [facility] with a chief complaint of heart palpitations since 16:00. Pt reports her symptoms have resolved since her arrival to [facility]. Pt notes that she received a breast CA 2 days ago. The patient rates the pain 0/10 in severity. Patient reports weakness. Hx atrial flutter and Hodgkins lymphoma in remission. An EKG reveals sinus tachycardia at 106 bpm. Patient will be discharged with follow up from PCP. Dx palpitations. The patient is agreeable with this plan. - Diagnoses Provider Diagnoses: Palpitations Discharge - Sign-Out/Discharge Documenting (check all that apply): Patient Departure - discharge - Discharge Plan Condition: Improved Disposition: HOME Patient Education Materials: Heart Palpitations (ED) Referrals: Philip Chirinos MD [Primary Care Provider] - Additional Instructions: Your heart rhythm here is normal, although slightly fast, and you have a low grade temp. You could be coming down with a bug, so if you develop high fever or other signs of serious infection we should see you back. - Billing Disposition and Condition Condition: IMPROVED Disposition: Home - Attestation Statements Document Initiated by Christianaibe: Yes Documenting Scribe: Raine Wan Provider For Whom Amaury is Documenting (Include Credential): James Beck MD Scribe Attestation: Raine Damon scribed for James Beck MD on 08/05/18 at 0014. Scribe Documentation Reviewed: Yes Provider Attestation: The documentation as recorded by the christianaibe, Raine Wan accurately reflects the service I personally performed and the decisions made by me, James Beck MD Status of Scribe Document: Viewed
[2018-08-04 20:02] VITALS: BP 147/81
== END | disposition home or self-care (01) ==
LOC: ED 18:52
DX: R00.2 Palpitations (principal); C50.919 Malignant neoplasm of unspecified site of unspecified female breast; I48.92 Unspecified atrial flutter; R00.0 Tachycardia, unspecified; Z85.71 Personal history of Hodgkin lymphoma; E07.9 Disorder of thyroid, unspecified; I50.9 Heart failure, unspecified; J44.9 Chronic obstructive pulmonary disease, unspecified; K21.9 Gastro-esophageal reflux disease without esophagitis; Z87.891 Personal history of nicotine dependence
CPT/HCPCS: 93005; 99282

== ENCOUNTER 2018-10-07 07:02 | Inpatient (IN) | payer OTHER ==
--- NOTE | 2018-09-23 20:01 | HP ---
CC: Dr. Philip Chirinos; Dr. Janice Lay; Dr. Milena Rose; Dr. Raffy Hernandez * ADMISSION HISTORY AND PHYSICAL: DATE OF ADMISSION: 10/07/18 ATTENDING SURGEON: Dr. Kacy Cain.* (DICTATED BY EULOGIO KOTHARI) CHIEF COMPLAINT: Left breast cancer. HISTORY OF PRESENT ILLNESS: This is a 62-year-old female with a complicated medical history, who first noted the presence of a left breast lump in December 2017. She had complications related to bronchitis and/or pneumonia as well as fluid overload and ultimately bradycardia requiring a pacemaker such that the breast lump was not directly addressed until she underwent mammogram in July. She states that it does seem to have grown in the interim. It had not been particularly painful, maybe a bit tender to palpation. She has not had any other prior breast biopsies. Her family history is positive for breast cancer in a paternal grandmother. There is no known family history of ovarian cancer. The remainder of her menstrual and hormonal history is outlined in her chart record. She has been seen by Dr. Janice Lay. Mammogram (her first) on 07/27/18 showed a lobulated mass corresponding with the palpable mass in the 12 o'clock position of the left breast measuring 2.8 x 2.4 x 2.5 cm. Ultrasound done the same day confirmed the same mass, described as heterogeneous , measuring 3 x 1.9 x 2.3 cm. In addition, there were 2 other lesions, one described as an irregular lesion at the 1 o'clock position 2 cm from the nipple measuring 0.9 x 0.6 x 0.9 cm and another lesion at the 2 o'clock position described as hypoechoic with smooth margins at 2 cm from the nipple measuring 0.5 x 0.3 x 0.4 cm. A fine-needle aspiration of the left breast mass was performed on 08/01/18 and was positive for ductal adenocarcinoma. Estrogen and progesterone receptors were positive. HER-2/anoop was negative. The patient was seen in the office by Dr. Cain on 09/01/18. Her exam at that time confirmed the presence of a firm irregular 3 cm mass in the superior breast close to the nipple-areolar complex and described as mobile, not fixed to the skin. There were no skin or nipple changes. The right breast was described as slightly fibrotic, but without discrete masses. She has scarring of the left axilla from prior surgery making the assessment difficult. There is no palpable right axillary lymphadenopathy. Similarly, the neck and supraclavicular areas are notable for scarring. The patient underwent a CT scan of the chest, abdomen, and pelvis for staging on 09/05/18 that showed chronic lung changes as well as resolution of prior infiltrate and/or effusions from March and/or May 2018. The aforementioned left breast lesion was confirmed. In addition, there were noted to be 2 right breast lesions measuring 1.3 and 1.1 cm, described as without change since the March and May CT scans. In addition, there was some heterogeneity of the liver as well as some hepato-megaly, but no focal suspicious lesions. The patient is status post splenectomy. There was a 3.3 cm splenule. There were also noted to be several cysts in the right kidney. A dedicated right breast ultrasound was performed on 09/12/18 showing an oval, solid, hypoechoic mass with lobulated margins at the 5 to 6 o'clock position located 4 cm from the nipple and measuring 1.2 x 0.8 x 1.2 cm. A second lesion described as oval and hypoechoic located at the 10 o'clock position 9 cm from the nipple, measuring 1.2 x 0.8 x 1.0 cm and suggestive of lymph node. The patient states that she underwent biopsy of both of these lesions on 09/14/18, the first lesion being benign and the second being confirmed as a lymph node. Dr. Cain has discussed the surgical options with the patient including indications, risks, benefits, and alternatives. She has had some recent DIGITAL MEDIA ANALYST workup for vaginal bleeding and is planned for concurrent surgery with Dr. Hernandez for D and C and polypectomy. The patient would like to proceed as scheduled with left mastectomy with sentinel lymph node biopsy. PAST MEDICAL HISTORY: Significant for Hodgkin's lymphoma, status post radiation therapy to the chest approximately 30 years ago and then subsequent recurrence, treated with chemotherapy including Adriamycin. She did have injury to the right median nerve as a result of the affected lymphoma on the brachial plexus on the right. She has a history of coronary artery disease ( medically managed) with history of paroxysmal atrial fibrillation and atrial flutter, on chronic anticoagulation. She has a history of congestive heart failure felt to be largely related to fibrosis secondary to prior radiation therapy (see below in review of systems). She is treated for GERD. She has pulmonary fibrosis and left bundle- branch block, hypothyroidism, anxiety. PAST SURGICAL HISTORY: Previous surgeries include pacemaker placement on , staging laparotomy with splenectomy and lymph node dissection in the 1980s, left axillary lymphadenectomy at that same time with resultant chronic lymphedema of the left upper extremity. She underwent VATS procedure in [address] Nguyen for decortication of adhesions. She had undergone a cardiac catheterization in 2010. She has had dental extractions and a port placement for chemotherapy and subsequent removal. CURRENT MEDICATIONS: 1. Dofetilide 125 mcg 3 times daily. 2. Metoprolol tartrate 25 mg b.i.d. 3. Xarelto 20 mg once daily (she will hold preoperatively, her last dose being the evening of 10/04/18). 4. Klonopin 1 mg q.h.s. 5. Levothyroxine 75 mcg q. day. 6. Ranitidine 150 mg q. day. 7. Buspirone 5 mg t.i.d. 8. Torsemide 20 mg 3 quarters of a tablet once daily, 3 days on and then 1 day off. 9. Potassium chloride 20 mEq once daily. 10. She also takes the following supplements: Calcium and magnesium, a separate dedicated magnesium, vitamin C, vitamin B complex, CoQ10, vitamin D3, acidophilus/bifidus, omega 3-6-9. She was asked to hold her supplements for 2 to 3 days preoperatively. 11. She has a Ventolin MDI, which she essentially does not use at the present time. DRUG ALLERGIES: PENICILLIN (throat swelling) (she does tolerate Keflex), DRONEDARONE (the patient does not recall reaction), LEVOFLOXACIN (itching), MULTAQ (shortness of breath), SOTALOL and ATENOLOL (generalized fatigue). FAMILY HISTORY: Positive for breast cancer as noted above and is negative for anesthesia problems, bleeding or clotting disorders. SOCIAL HISTORY: The patient is a former smoker who quit in 2006 with a total 12.5- pack-year history. She has used medical marijuana in the past, but not recently. REVIEW OF SYSTEMS: General: No recent constitutional symptoms other than described above in the HPI. Her weight has been stable or possibly increased a bit. She has good appetite. HEENT: No specific problems reported. Cardiovascular: As noted above. See separate attached from Dr. Rose including most recent echocardiogram from 05/18/18. Respiratory: She was seen recently by Dr. Ceja. She does have pulmonary hypertension and pulmonary fibrosis secondary to prior radiation therapy, but at the present time is stable. No recent acute symptoms. GI: GERD, well controlled. No lower GI symptoms. She has had colonoscopy in the past, but she does not recall exactly when. No acute or recent symptoms. : No problems reported. DIGITAL MEDIA ANALYST: Postmenopausal bleeding, endometrial polyp, scheduled for D and C and polypectomy with Dr. Hernandez. Musculoskeletal: Her right hand is largely nonfunctional secondary to prior injury related to her Hodgkin disease. Left upper extremity is functional, but notable for significant lymphedema. Neuro/ Psych: She is treated for anxiety. Endocrine: Hypothyroid, on replacement. No history of diabetes. PHYSICAL EXAMINATION GENERAL: Well-nourished, well-developed female, in no acute distress. VITAL SIGNS: Height 5 feet 6 inches, weight 148 pounds. Blood pressure 100/68 , pulse 78, respirations 18. HEENT: Pupils are equal, round, and reactive. EOMs intact. No conjunctival pallor. Oropharynx: Teeth in fair to good repair. No intraoral lesions. NECK: Difficult to examine secondary to scarring and fibrosis. No obvious palpable cervical or supraclavicular lymphadenopathy. BREASTS: As per Dr. Cain's exam, same for axillae. Detailed exam not performed. She does have a somewhat erythematous rash in the inferomedial aspect of the right breast from the biopsy site, possibly contact type of dermatitis versus yeast infection. She does have and has been using some nystatin cream and/or powder topically with gradual improvement. There is no open area and no active cellulitis. LUNGS: Clear to auscultation. No rales or wheezes. HEART: Regular rate and rhythm with systolic murmur heard throughout the precordium, but loudest at the right costal margin. No apparent ectopy. ABDOMEN: Well-healed midline incision. Soft, nontender to palpation. No palpable masses or organomegaly. EXTREMITIES: No edema of the lower extremities. Chronic lymphedema of the left upper extremity. GENITALIA: Not done. RECTAL: Not done. BACK: No spinous process or CVA tenderness. NEUROLOGICAL: Grossly intact, though specific exam not performed today. SKIN: Warm and dry. No suspicious rashes or lesions noted. IMPRESSION: Left breast cancer. PLAN: Left mastectomy with sentinel lymph node biopsy (to be done concurrently with Dr. Hernandez, who will be doing a D and C, hysteroscopy, and polypectomy). EULOGIO KOTHARI [id number]/[facility] #: [id number] [facility]
[~2018-10-07 07:02] MED LIST: Buffered Lidocaine 1% SYRIN* 1 ML/SYRINGE INTRADERM ONE; Lactated Ringers 1000 ML Bag* 1,000 ML IV SCH; Sodium Citrate/Citric Acid* 15 ML UDC PO ONE
[2018-10-07] MEDS ORDERED: Sodium Citrate/Citric Acid* 15 ML UDC ONE (07:32)
[2018-10-07] MEDS ORDERED: ceFAZolin 2 GM in NS PREMIX(*) 2 GM/100 ML BAG IVPB ONE (07:33)
[2018-10-07] MEDS ORDERED: Buffered Lidocaine 1% SYRIN* 1 ML/SYRINGE INTRADERM ONE (07:33)
[2018-10-07] MEDS ORDERED: Lidocaine 2.5%/Prilocain 2.5%* 5 GM TUBE ONE (07:39)
[2018-10-07] MEDS ORDERED: Methylene Blue 0.5 %* 50 MG/10 ML AMP IV ONE (10:55)
[2018-10-07] MEDS ORDERED: Bupivacaine 0.25% SDV PF* 10 ML VIAL INJ ONE (10:56)
[2018-10-07] MEDS ORDERED: Silver Nitrate/Potassium Nitr* 1 EA STICK ONE (10:56)
[2018-10-07] MEDS ORDERED: Midazolam* 1 MG/ML 2 ML VIAL (2 MG) ONE (11:47)
[2018-10-07] MEDS ORDERED: fentaNYL* 50 MCG/ML 2 ML VIAL (100 MCG VIAL) ONE (11:47)
[2018-10-07] MEDS ORDERED: Propofol* 10 MG/ML 20 ML BTL ONE (11:50)
[2018-10-07] MEDS ORDERED: Rocuronium* 10 MG/ML VIAL ONE (11:52)
[2018-10-07] MEDS ORDERED: Lidocaine 2% PF * 5 ML VIAL ONE (11:52)
[2018-10-07] MEDS ORDERED: Glycopyrrolate IV* 0.2 MG/ML 1 ML VIAL ONE (14:44)
[2018-10-07] MEDS ORDERED: Neostigmine Methylsulfate* 1 MG/ML 10 ML VIAL (1 mg/ml) ONE (14:44)
[2018-10-07] MEDS ORDERED: Ketorolac INJ* 30 MG/ML 1 ML VIAL ONE (14:44)
[2018-10-07] MEDS ORDERED: Acetaminophen TAB* 325 MG PO PRN (15:14)
[2018-10-07] MEDS ORDERED: Ondansetron INJ* 2 MG/ML VIAL IV PRN (15:14)
[2018-10-07] MEDS ORDERED: Albuterol HFA INHALER* 8 gm MDI INH PRN (15:27)
[2018-10-07] MEDS ORDERED: HYDROmorphone INJ1* 1 MG/ML SYRINGE ONE (15:57)
[2018-10-07] MEDS ORDERED: oxyCODONE/Acetamin 5/325 MG* TAB ONE (15:57)
[2018-10-07] MEDS: oxyCODONE/Acetamin 5/325 MG* TAB PO PRN ×2 (15:59→21:15)
[2018-10-07] MEDS ORDERED: Lactated Ringers 1000 ML Bag* 1,000 ML IV SCH (16:00)
[2018-10-07] MEDS: HYDROmorphone INJ1* 1 MG/ML SYRINGE IV SLOW PU PRN (16:00)
--- NOTE | 2018-10-07 17:28 | OP ---
CC: Dr. Hernandez, [facility]; Dr. Cain, [facility] OPERATIVE REPORT: DATE OF OPERATION: 10/07/18 DATE OF : 57 SURGEON: Raffy Hernandez MD ANESTHESIOLOGIST: Dr. Irizarry. ANESTHESIA: General endotracheal anesthesia. PRE-OP DIAGNOSES: 1. Postmenopausal bleeding. 2. Endometrial polyp on exam. POST-OP DIAGNOSES: 1. Postmenopausal bleeding. 2. Endometrial polyp on exam. OPERATIVE PROCEDURE: Dilation, hysteroscopy, curettage, polypectomy. ESTIMATED BLOOD LOSS: Minimal, less than 20 cc. FINDINGS: Small midline uterus, nulliparous cervix, multiple endometrial polyps, otherwise atrophic appearing endometrium. COMPLICATIONS: None. COUNTS: Sponge count correct x2. CONDITION: The patient tolerated the procedure well and was brought to recovery room awake and in st able condition. DESCRIPTION OF PROCEDURE: The patient was brought to the operating room. When general anesthesia wa s found to be adequate, the patient was prepped and draped in the usual sterile fashion in the dorsal lithotomy position. Time-out was performed. Exam under anesthesia was performed with the above fin dings noted. Speculum was placed in the vagina. The anterior lip of the cervix was grasped with a si ngle-tooth tenaculum. The cervix was gently and easily dilated with the graduated Hegar dilators. T he hysteroscope was introduced. Multiple polyps were seen within the endometrium arising from the fu ndus and extending all the way to the level of the internal cervical os. The polyps were grasped wit h a polyp forceps and sharp curettage was performed removing the polyps. The polyps and endometrial curettings were sent to Pathology. The single-tooth tenaculum was removed from the cervix. Excellen t hemostasis was noted. All instruments were removed from the vagina and the patient tolerated that portion of the procedure well. We are going to proceed now with Dr. Cain's procedure. [id number]/[facility] #: [id number]
[2018-10-07] MEDS: Metoprolol Tartrate TAB* 25 MG PO SCH (21:14)
[2018-10-07] MEDS: Dofetilide CAP* 125 MCG PO SCH (21:14)
[2018-10-07] MEDS: Docusate CAP* 100 MG PO SCH (21:14)
[2018-10-07] MEDS: clonazePAM TAB(*) 1 MG PO SCH (21:14)
--- NOTE | 2018-10-07 23:14 | OP ---
CC: [facility]; Dr. Janice Lay; Dr. Philip Chirinos; Dr. Milena Rose; Dr. Raffy Hernandez OPERATIVE REPORT: DATE OF OPERATION: 10/07/18 DATE OF : 57 SURGEON: Kacy Cain MD. PLASTER PATTERNMAKER: Ann Marie Vu NP. PRE-OP DIAGNOSIS: Left breast cancer. POST-OP DIAGNOSIS: Left breast cancer. OPERATIVE PROCEDURE: Left mastectomy and sentinel lymph node biopsy, converted to left axillary dissection. INDICATIONS: Mrs. Traylor is a 63-year-old woman who presented to the office with recently diagnosed breast cancer. She is also known to have postmenopausal bleeding that needed attention. Plans were made for surgical intervention. DESCRIPTION OF PROCEDURE: On the morning of surgery, she underwent sentinel lymph node localization, which was unsuccessful, and was then brought to the operating room. In the operating room, she underwent the procedure by Dr. Hernandez regarding the postmenopausal bleeding and then, at the same time, I injected blue dye for a second attempt at sentinel lymph node localization. Once Dr. Hernandez was completed with her portion of the surgery, attention was turned to the mastectomy. The left breast and axilla were prepped and draped in the usual sterile fashion. Then an incision was made in the superior breast and subcutaneous tissue was divided with electrocautery to create flaps, medially to the sternum, superiorly to the clavicle, and laterally to the latissimus dorsi muscle. Then, a second incision was made on the breast following a line that had been marked preoperatively, so as to create an ellipse of skin around the nipple areolar complex and, again, subcutaneous tissue was divided with electrocautery, medially to the sternum, inferiorly to the rectus muscle, and laterally to the latissimus dorsi muscle. Then, the breast was elevated off the chest wall and dissected from the chest wall using an electrocautery. Clips were placed on the chest wall at the approximate location of the tumor within the breast. Once the axillary tail portion of the breast was reached, a search was made for the sentinel lymph node, both with the navigator and by searching for blue dye. The navigator did not identify any counts beyond the lateral breast and a search was made for the blue dye, which also appeared to terminate in the lateral breast. There appeared to be some scar tissue in this area possibly related to her previous radiation, which she had for Hodgkin's disease many years ago. So, we then decided to proceed with axillary dissection, which had been discussed with her preoperatively. The axillary contents were identified and flipped posteriorly from the pectoralis muscle, inferiorly from the axillary vein, and anteriorly from the latissimus muscle. Careful dissection was done with a combination of sharp and blunt dissection, and clips were used to control blood and lymphatic vessels as they were encountered. The long thoracic and thoracodorsal nerves were identified in the process of this dissection and noted to be preserved through the surgery. Once the axillary contents were removed, the breast was marked in the usual fashion and handed off as a specimen. The dog ears, both medially and laterally, were trimmed and handed off as excess skin, and this allowed for flat incision once closure was completed. Closure was accomplished with 2-0 Vicryl in the subcutaneous layer and the skin was closed with 4-0 Vicryl in a subcuticular fashion. Prior to closing completely, VELIA drains were placed, both under the flaps of the breast and in the axilla. These were brought out through stab wounds in the anterior and inferior axillary line and secured to the chest wall with 3-0 Prolene stitches. Once the closure was complete, Steri- Strip and a dry fluffy dressing were applied. All sponge and instrument counts were correct. The patient tolerated the procedure well and was transferred to the recovery room in a stable condition. [id number]/[facility] #: [id number] MTDD
[2018-10-08] MEDS: Levothyroxine TAB* 75 MCG TAB PO SCH (06:21)
[2018-10-08] MEDS: Ibuprofen TAB* 600 MG PO PRN (06:21)
--- NOTE | 2018-10-08 07:43 | PN ---
Progress Note - Progress Note Date of Service: 10/08/18 Note: Surgery Ms. Traylor says she is surprised at how little pain she is having. She notes some swelling posteriorly, but otherwise denies problems. VS: Vital Signs 10/07/18 10/07/18 10/07/18 08:01 15:13 15:14 Temperature 97.7 F 97.3 F Pulse Rate 79 69 Respiratory 16 7 20 Rate Blood Pressure 137/80 85/56 (mmHg) O2 Sat by Pulse 100 98 Oximetry 10/07/18 10/07/18 10/07/18 15:15 15:18 15:20 Temperature Pulse Rate 70 70 71 Respiratory 13 15 13 Rate Blood Pressure 87/51 105/62 108/61 (mmHg) O2 Sat by Pulse 99 100 100 Oximetry 10/07/18 10/07/18 10/07/18 15:25 15:30 15:35 Temperature Pulse Rate 70 70 70 Respiratory 13 15 17 Rate Blood Pressure 102/60 103/61 102/61 (mmHg) O2 Sat by Pulse 99 99 97 Oximetry 10/07/18 10/07/18 10/07/18 15:45 15:59 16:00 Temperature 97.2 F Pulse Rate 73 76 Respiratory 13 15 10 Rate Blood Pressure 101/62 105/60 (mmHg) O2 Sat by Pulse 97 94 Oximetry 10/07/18 10/07/18 10/07/18 16:01 16:15 16:23 Temperature 96.6 F Pulse Rate 77 79 81 Respiratory 14 16 16 Rate Blood Pressure 101/58 99/57 (mmHg) O2 Sat by Pulse 94 93 97 Oximetry 10/07/18 10/07/18 10/07/18 16:44 19:40 19:41 Temperature 97.8 F Pulse Rate 81 97 Respiratory 16 17 17 Rate Blood Pressure 99/57 101/64 (mmHg) O2 Sat by Pulse 97 Oximetry 10/07/18 10/07/18 10/07/18 21:14 21:15 21:19 Temperature 97.9 F Pulse Rate 93 Respiratory 18 18 18 Rate Blood Pressure 101/57 (mmHg) O2 Sat by Pulse 99 Oximetry 10/07/18 10/07/18 10/08/18 22:00 23:57 00:00 Temperature 98.8 F Pulse Rate 96 Respiratory 18 18 Rate Blood Pressure 119/70 (mmHg) O2 Sat by Pulse 100 100 Oximetry 10/08/18 03:26 Temperature 97.7 F Pulse Rate 89 Respiratory 16 Rate Blood Pressure 95/52 (mmHg) O2 Sat by Pulse 96 Oximetry General: Awake and alert Incision: clean and dry, no signs infection; flaps viable JPs: serosanguinous Intake & Output 10/07/18 10/08/18 10/08/18 22:59 06:59 14:59 Intake Total 1300 1926 Output Total 475 1042 Balance 825 884 Intake: IV Fluids 1300 986 LR 986 lr 1300 Oral 940 Output: VELIA #1 50 VELIA #2 42 Urine 225 950 [place] 150 Estimated Blood Loss 100 A/P: POD#1 s/p left mastectomy with axillary dissection; doing well. Complicating the plans for discharge is the fact of her baseline disability. She has almost no use of her right arm and at baseline has limiting lymphedema of the left arm which makes managing the VELIA drains difficult if not impossible. I will ask nursing to assess her ability to manage them on her own with the help she has available to her. She will most likely stay at least another day. Ramon
[2018-10-08] MEDS: Clotrimazole 1% CREAM* 45 GM TOPICAL PRN ×2 (08:42→23:15)
[2018-10-08] MEDS: Famotidine TAB* 20 MG PO SCH (08:43)
[2018-10-08] MEDS: Metoprolol Tartrate TAB* 25 MG PO SCH ×2 (08:43→23:03)
[2018-10-08] MEDS: Docusate CAP* 100 MG PO SCH ×2 (08:43→23:04)
[2018-10-08] MEDS: oxyCODONE/Acetamin 5/325 MG* TAB PO PRN ×3 (08:43→23:14)
[2018-10-08] MEDS: Dofetilide CAP* 125 MCG PO SCH ×3 (08:43→23:04)
[2018-10-08] MEDS: Potassium Chlor TAB* 20 MEQ TAB.ER PO SCH (08:44)
[2018-10-08] MEDS ORDERED: Torsemide TAB 10 MG PO SCH (09:00)
[2018-10-08] MEDS: Magnesium Oxide TAB* 400 MG PO SCH ×2 (10:31→23:04)
[2018-10-08] MEDS: clonazePAM TAB(*) 1 MG PO SCH (23:43)
[2018-10-09] MEDS: Levothyroxine TAB* 75 MCG TAB PO SCH (05:54)
[2018-10-09] MEDS: oxyCODONE/Acetamin 5/325 MG* TAB PO PRN ×3 (08:37→21:31)
[2018-10-09] MEDS: Docusate CAP* 100 MG PO SCH ×2 (08:38→21:31)
[2018-10-09] MEDS: Potassium Chlor TAB* 20 MEQ TAB.ER PO SCH (08:38)
[2018-10-09] MEDS: Magnesium Oxide TAB* 400 MG PO SCH ×2 (08:38→21:32)
[2018-10-09] MEDS: Famotidine TAB* 20 MG PO SCH (08:38)
[2018-10-09] MEDS: Metoprolol Tartrate TAB* 25 MG PO SCH ×2 (08:38→21:31)
[2018-10-09] MEDS: Ibuprofen TAB* 600 MG PO PRN ×2 (08:38→15:41)
[2018-10-09] MEDS: Dofetilide CAP* 125 MCG PO SCH ×3 (08:39→21:31)
[2018-10-09] MEDS: busPIRone TAB* 5 MG PO PRN ×2 (08:40→14:31)
[2018-10-09] MEDS: Clotrimazole 1% CREAM* 45 GM TOPICAL PRN ×2 (08:48→21:33)
--- NOTE | 2018-10-09 09:49 | PN ---
Progress Note - Progress Note Date of Service: 10/09/18 SOAP: Subjective: States pain is controlled. Worried about yeast infection. Wants to stay another day due to difficulties with managing her drains, dressings. Objective: Vital Signs Temp 97.7 F 10/09/18 07:51 Pulse 79 10/09/18 07:51 Resp 20 10/09/18 08:37 BP 107/59 10/09/18 07:51 Pulse Ox 96 10/09/18 07:51 Gen: NAD Chest: L mastectomy incision c/d/i; no erythema;JPs with SS o/p. Dressings changed. No rash noted. Intake & Output 10/08/18 10/09/18 10/09/18 18:59 06:59 18:59 Intake Total 823 940 Output Total 978 1805 Balance -155 -865 Weight 149 lb 9.6 oz Intake: IV Fluids 463 LR 463 Oral 360 940 Output: VELIA #1 60 35 VELIA #2 18 20 Urine 900 1750 Other: # Bowel Movements 0 Active Medications Generic Name Dose Route Start Last Admin Trade Name Freq PRN Reason Stop Dose Admin Acetaminophen 650 mg 10/07/18 15:14 Tylenol Tab* PO Q4H PRN Pain Or Temperature >101 F Albuterol 2 puff 10/07/18 15:27 Ventolin Hfa Inhaler* INH Q6H PRN SOB/WHEEZING Buspirone HCl 5 mg 10/07/18 15:27 10/09/18 08:40 Buspar Tab* PO 5 mg TID PRN Administration ANXIETY Clonazepam 1 mg 10/07/18 21:00 10/08/18 23:43 Klonopin Tab(*) PO 1 mg BEDTIME ÁLVARO Administration Clotrimazole 1 applic 10/07/18 15:27 10/09/18 08:48 Clotrimazole 1%* TOPICAL 1 applic BID PRN Administration ITCHING Docusate Sodium 100 mg 10/07/18 21:00 10/09/18 08:38 Colace Cap* PO 100 mg BID ÁLVARO Administration Dofetilide 125 mcg 10/07/18 21:00 10/09/18 08:39 Tikosyn Cap* PO 125 mcg TID ÁLVARO Administration Famotidine 20 mg 10/08/18 09:00 10/09/18 08:38 Pepcid Tab* PO 20 mg QAM ÁLVARO Administration Hydromorphone HCl 0.5 mg 10/07/18 15:14 10/07/18 16:00 Dilaudid Inj1s* IV SLOW PU 0.5 mg Q1H PRN Administration PAIN - SEVERE Lactated Ringer's 1,000 mls @ 75 mls/hr 10/07/18 16:00 10/08/18 06:24 Lactated Ringers 1000 Ml Bag* IV 75 mls/hr PER RATE ÁLVARO Administration Ibuprofen 600 mg 10/07/18 15:14 10/09/18 08:38 Motrin Tab* PO 600 mg Q8H PRN Administration PAIN Levothyroxine Sodium 75 mcg 10/08/18 06:00 10/09/18 05:54 Synthroid Tab* PO 75 mcg QAM@0600 ÁLVARO Administration Magnesium Oxide 400 mg 10/08/18 09:00 10/09/18 08:38 Magox 400 Tab* PO 400 mg BID ÁLVARO Administration Metoprolol Tartrate 25 mg 10/07/18 21:00 10/09/18 08:38 Lopressor Tab* PO 25 mg BID ÁLVARO Administration Ondansetron HCl 4 mg 10/07/18 15:14 Zofran Inj* IV Q4H PRN NAUSEA/VOMITING Oxycodone/Acetaminophen 1 tab 10/07/18 15:14 10/09/18 08:37 Percocet 5/325 Tab* PO 1 tab Q4H PRN Administration PAIN Potassium Chloride 20 meq 10/08/18 09:00 10/09/18 08:38 Klor Con Er Tab* PO 20 meq QAM ÁLVARO Administration Torsemide 15 mg 10/08/18 09:00 10/08/18 10:31 Torsemide PO 15 mg EVERY OTHER DAY ÁLVARO Administration Assessment: s/p L mastectomy. Plan: Cont JPs. Home possibly tomorrow.
[2018-10-09] MEDS: Torsemide TAB 10 MG PO SCH (10:58)
[2018-10-09] MEDS: clonazePAM TAB(*) 1 MG PO SCH (22:56)
[2018-10-10] MEDS: Levothyroxine TAB* 75 MCG TAB PO SCH (06:42)
[2018-10-10] MEDS: oxyCODONE/Acetamin 5/325 MG* TAB PO PRN ×3 (08:15→19:50)
[2018-10-10] MEDS: Dofetilide CAP* 125 MCG PO SCH ×3 (08:16→21:31)
[2018-10-10] MEDS: Famotidine TAB* 20 MG PO SCH (08:16)
[2018-10-10] MEDS: Potassium Chlor TAB* 20 MEQ TAB.ER PO SCH (08:16)
[2018-10-10] MEDS: Docusate CAP* 100 MG PO SCH ×2 (08:16→21:31)
[2018-10-10] MEDS: Magnesium Oxide TAB* 400 MG PO SCH ×2 (08:17→21:31)
[2018-10-10] MEDS: Clotrimazole 1% CREAM* 45 GM TOPICAL PRN (08:17)
[2018-10-10] MEDS: Torsemide TAB 10 MG PO SCH (08:17)
[2018-10-10] MEDS: Metoprolol Tartrate TAB* 25 MG PO SCH ×2 (08:19→21:56)
--- NOTE | 2018-10-10 09:53 | PN ---
Progress Note - Progress Note Date of Service: 10/10/18 SOAP: Subjective:POD# s/p left mastectomy,axillary dissection;minimal pain;good appetite;not sure if there is reliable help at home to manage VELIA drains [] Objective: Vital Signs Temp 98.6 F 10/10/18 07:40 Pulse 78 10/10/18 07:40 Resp 18 10/10/18 08:15 BP 91/52 10/10/18 07:40 Pulse Ox 97 10/10/18 08:00 Intake & Output 10/09/18 10/10/18 10/10/18 18:59 06:59 18:59 Intake Total 560 1060 Output Total 828 1510 330 Balance -268 -450 -330 Weight 149 lb 9.6 oz 151 lb 8 oz Intake: Oral 560 1060 Output: VELIA #1 20 0 10 VELIA #2 8 10 20 Urine 800 1500 300 Other: Estimated Void Medium # Bowel Movements 0 # Voids 2 lungs:clear bilat;left mastectomy incision intact with steristrips,no erythema, no drainage;JPx2,serosang,milked and patent;resolving fungal infection under Right breast;dressings and 6"reji rewrapped [] Assessment:doing well but due to her disability of upper extremities is unable to do her VELIA drain care [] Plan:continue current care;will discuss with Dr Cain for further discharge planning []
[2018-10-10] MEDS: Ibuprofen TAB* 600 MG PO PRN (18:25)
[2018-10-10] MEDS: clonazePAM TAB(*) 1 MG PO SCH (21:31)
[2018-10-11] MEDS: oxyCODONE/Acetamin 5/325 MG* TAB PO PRN ×5 (02:34→21:10)
[2018-10-11] MEDS: Levothyroxine TAB* 75 MCG TAB PO SCH (05:52)
--- NOTE | 2018-10-11 08:26 | PN ---
Progress Note - Progress Note Date of Service: 10/11/18 Note: Surgery Ms. Traylor is very anxious about being at home with drains in place. She knows she cannot manage the drains herself. She denies pain. She had questions about the use of the left arm and questions about when she might be able to drive again. Vital Signs 10/10/18 10/10/18 10/10/18 11:51 15:32 15:48 Temperature 98.3 F 97.7 F Pulse Rate 79 86 Respiratory 18 18 16 Rate Blood Pressure 89/50 106/47 (mmHg) O2 Sat by Pulse 100 100 Oximetry 10/10/18 10/10/18 10/10/18 16:00 16:52 18:21 Temperature 97.4 F Pulse Rate 81 Respiratory 14 16 Rate Blood Pressure 92/52 (mmHg) O2 Sat by Pulse 100 99 Oximetry 10/10/18 10/10/18 10/10/18 19:50 19:58 21:31 Temperature Pulse Rate Respiratory 18 18 17 Rate Blood Pressure (mmHg) O2 Sat by Pulse Oximetry 10/10/18 10/10/18 10/11/18 21:40 23:52 00:00 Temperature 98.0 F 97.8 F Pulse Rate 90 73 Respiratory 16 14 Rate Blood Pressure 124/59 75/44 (mmHg) O2 Sat by Pulse 98 96 96 Oximetry 10/11/18 10/11/18 10/11/18 00:01 02:34 02:35 Temperature Pulse Rate Respiratory 17 17 Rate Blood Pressure 102/48 (mmHg) O2 Sat by Pulse Oximetry 10/11/18 10/11/18 10/11/18 02:36 03:35 03:39 Temperature 97.6 F Pulse Rate 73 Respiratory 17 14 Rate Blood Pressure 75/46 98/52 (mmHg) O2 Sat by Pulse 95 Oximetry 10/11/18 05:53 Temperature Pulse Rate Respiratory 17 Rate Blood Pressure (mmHg) O2 Sat by Pulse Oximetry Incision: clean and dry; flaps viable contralateral breast: rash improving JPs: serous fluid Intake & Output 10/10/18 10/11/18 10/11/18 22:59 06:59 14:59 Intake Total 2360 240 Output Total 2140 1125 Balance 220 -885 Weight 149 lb 9.6 oz Intake: Oral 2360 240 Output: VELIA #1 25 10 VELIA #2 15 15 Urine 2100 1100 Other: # Bowel Movements 0 Intake & Output 10/09/18 10/10/18 10/11/18 10/12/18 06:59 06:59 06:59 06:59 Intake Total 1763 1620 2950 Output Total 2783 2338 4595 Balance -1020 -718 -1645 Weight 151 lb 8 oz 149 lb 9.6 oz Intake: IV Fluids 463 LR 463 Oral 1300 1620 2950 Output: VELIA #1 95 20 45 VELIA #2 38 18 50 Urine 2650 2300 4500 Other: Estimated Void Medium # Bowel Movements 0 0 0 # Voids 2 A/P: Doing well. Still too much drainage to remove the drains; if home health services are adequate to help with drains and dressing, she can go home. I advised minimal use of the left arm, and arm elevation when possible. 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 Ramon
[2018-10-11] MEDS: Magnesium Oxide TAB* 400 MG PO SCH ×2 (08:47→21:11)
[2018-10-11] MEDS: Docusate CAP* 100 MG PO SCH ×2 (08:48→21:11)
[2018-10-11] MEDS: Potassium Chlor TAB* 20 MEQ TAB.ER PO SCH (08:48)
[2018-10-11] MEDS: Dofetilide CAP* 125 MCG PO SCH ×3 (08:48→21:12)
[2018-10-11] MEDS: Famotidine TAB* 20 MG PO SCH (08:49)
[2018-10-11] MEDS: Metoprolol Tartrate TAB* 25 MG PO SCH ×2 (09:11→21:11)
[2018-10-11] MEDS: Clotrimazole 1% CREAM* 45 GM TOPICAL PRN ×2 (09:40→23:14)
[2018-10-11] MEDS: Rivaroxaban TAB(*) 20 MG TAB PO SCH (17:09)
[2018-10-11] MEDS: clonazePAM TAB(*) 1 MG PO SCH (23:12)
[2018-10-12] MEDS: oxyCODONE/Acetamin 5/325 MG* TAB PO PRN ×6 (01:08→23:05)
[2018-10-12] MEDS: Levothyroxine TAB* 75 MCG TAB PO SCH (06:31)
[2018-10-12] MEDS: Clotrimazole 1% CREAM* 45 GM TOPICAL PRN ×2 (09:38→21:33)
[2018-10-12] MEDS: Metoprolol Tartrate TAB* 25 MG PO SCH ×2 (09:38→21:20)
[2018-10-12] MEDS: Potassium Chlor TAB* 20 MEQ TAB.ER PO SCH (09:38)
[2018-10-12] MEDS: Magnesium Oxide TAB* 400 MG PO SCH ×2 (09:38→21:22)
[2018-10-12] MEDS: Docusate CAP* 100 MG PO SCH ×2 (09:38→21:22)
[2018-10-12] MEDS: Famotidine TAB* 20 MG PO SCH (09:38)
[2018-10-12] MEDS: Dofetilide CAP* 125 MCG PO SCH ×3 (09:38→23:06)
[2018-10-12] MEDS ORDERED: Fluconazole 150 MG (NF) 150 MG TAB PO ONE ×2 (11:28→18:00)
[2018-10-12] MEDS ORDERED: Magnesium Hydroxide LIQ* 30 ML UDC PO PRN (11:28)
--- NOTE | 2018-10-12 11:50 | PN ---
Progress Note - Progress Note Date of Service: 10/12/18 SOAP: Subjective:POD#5 LEFT MASTECTOMY WITH AXILLARY DISSECTION minimal pain,reports increase vaginal bleeding today;Xarelto resumed 10/11/18; unable to manage own JPs [] Objective: Vital Signs Temp 97.9 F 10/12/18 08:41 Pulse 82 10/12/18 08:41 Resp 16 10/12/18 10:56 BP 100/54 10/12/18 08:41 Pulse Ox 100 10/12/18 08:41 Intake & Output 10/11/18 10/12/18 10/12/18 18:59 06:59 18:59 Intake Total 360 950 Output Total 941 1850 930 Balance -581 900 -930 Weight 150 lb 9.6 oz Intake: Oral 360 950 Output: VELIA #1 23 20 10 VELIA #2 18 30 20 Urine 900 1800 900 Other: # Bowel Movements 0 JPs about 50ml total for past 24h,serosang;milked and another 20ml from #2 and 10ml #1,patent;left mastectomy incision C/D/I with steristrips,no infection; lungs:clear bilat;fungal infection under right breast more erythematous [] Assessment:VELIA drainage still too high to pull drains and pt cannot manage at home and no reliable help at home [] Plan:continue current care,discussed with Dr Cain;pt nurse will update Dr Hernandez re vaginal bleeding;Diflucan 150mg x1 dose ordered []
[2018-10-12] MEDS ORDERED: Torsemide TAB* 20 MG PO SCH (12:00)
[2018-10-12] MEDS: Rivaroxaban TAB(*) 20 MG TAB PO SCH (18:10)
[2018-10-12] MEDS: clonazePAM TAB(*) 1 MG PO SCH (21:50)
[2018-10-13] MEDS: oxyCODONE/Acetamin 5/325 MG* TAB PO PRN ×3 (03:39→14:30)
[2018-10-13] MEDS: Levothyroxine TAB* 75 MCG TAB PO SCH (05:55)
[2018-10-13] MEDS: Docusate CAP* 100 MG PO SCH (09:35)
[2018-10-13] MEDS: Famotidine TAB* 20 MG PO SCH (09:35)
[2018-10-13] MEDS: Magnesium Oxide TAB* 400 MG PO SCH (09:36)
[2018-10-13] MEDS: Potassium Chlor TAB* 20 MEQ TAB.ER PO SCH (09:36)
[2018-10-13] MEDS: Clotrimazole 1% CREAM* 45 GM TOPICAL PRN (09:37)
[2018-10-13] MEDS: Dofetilide CAP* 125 MCG PO SCH ×2 (09:37→14:28)
[2018-10-13] MEDS: Metoprolol Tartrate TAB* 25 MG PO SCH (09:39)
[2018-10-13] MEDS ORDERED: Torsemide TAB 10 MG PO ONE (11:10)
[2018-10-13] MEDS: HYDROmorphone INJ1* 1 MG/ML SYRINGE IV SLOW PU PRN (11:15)
--- NOTE | 2018-10-13 12:02 | PN ---
Progress Note - Progress Note Date of Service: 10/13/18 Note: S: Doing well. Not much pain. Is having some swelling (had torsemide yesterday w / good diuresis). Rosibel diet; having BMs. O: Vital Signs - 8 hr 10/13/18 10/13/18 10/13/18 05:56 07:29 08:00 Temperature 98.2 F Pulse Rate 84 Respiratory 16 16 16 Rate Blood Pressure 94/43 (mmHg) O2 Sat by Pulse 97 97 Oximetry 10/13/18 10/13/18 10/13/18 09:35 09:36 11:15 Temperature Pulse Rate Respiratory 16 16 Rate Blood Pressure 100/62 (mmHg) O2 Sat by Pulse Oximetry Intake and Output Last 24 Hours 10/11/18 10/12/18 10/13/18 10/14/18 06:59 06:59 06:59 06:59 Intake Total 2950 1310 1190 Output Total 4595 3261 2332 Balance -4897 -9669 -7892 Weight 149 lb 9.6 oz 150 lb 9.6 oz 148 lb 3.2 oz Intake: Oral 2950 1310 1190 Output: VELIA #1 45 43 28 VELIA #2 50 48 34 Urine 4500 2700 2400 Other: Estimated Void Large # Bowel Movements 0 0 0 Gen: appears comfortable; NAD Heart: reg; sys murmur Lungs: clear Abd: soft, nontender Left chest wall: steris intact; no drainage; no hematoma/seroma. Some tenderness. JPs: both fairly light, clear serosang drainage w/ output as noted above. Extr: no sig LE edema; baseline LUE edema A: s/p Left mastectomy w/ SLN bx, doing well P: discussed w/ Dr. Cain; JPs d/c'd; DSD placed; ok for d/c home; instructions reviewed; office f/u next wk
--- NOTE | 2018-10-13 14:37 | DS ---
CC: Dr. Raffy Hernandez; Dr. Janice Lay; Dr. Philip Chirinos; Dr. Milena Rose * DISCHARGE SUMMARY: DATE OF ADMISSION: 10/07/18 DATE OF DISCHARGE: 10/13/18 ATTENDING SURGEON: Dr. Kacy Cain* (dictated by EULOGIO Diane). HOSPITAL COURSE: Please refer to admission history and physical and operative note for details. The patient underwent a left mastectomy with axillary dissection with Dr. Cain (with concurrent D and C hysteroscopy and polypectomy with Dr. Hernandez). Her postoperative course was characterized by gradual improvement in her pain and gradual decrease in drainage from her 2 Hollis Hernandez drains placed at the time of surgery. However, because of the patient's disability from right upper extremity brachial plexus injury and lymphedema of the left upper extremity from prior axillary lymphadenectomy and lack of support at home, she stayed in the hospital until today when both drains had decreased in terms of output. Her pain was well controlled with oral medications. PHYSICAL EXAM: Temperature 98.2, blood pressure 100/62, pulse 84, respirations 16. General: She appears well and in no acute distress. Exam focused on the left chest wall shows no palpable hematoma or seroma. Steri-Strips intact with no active drainage or evidence of infection. The Hollis Hernandez drains both had light, fairly clear, serosanguineous drainage, draining 28 and 34 mL respectively over the last 24 hours. Drains were thus removed without incident and dry sterile dressings were placed. She still has some nick type rash in the right inframammary fold for which she is currently using triamcinolone cream. She will continue this at home and at some point convert to just nystatin powder. Pathology did show a T2 breast cancer with satellite lesions, but margins are clear, 1 of 4 lymph nodes was positive for metastatic disease. She will call our office to setup an appointment toward the middle or end of next week. She is discharged to home in good condition. She will resume her usual medications and Xarelto had already been resumed during her hospital stay. EULOGIO DIANE [id number]/[facility] #: [id number] [facility]
[2018-10-13 16:11] VITALS: BP 102/61
== END 2018-10-13 16:15 | disposition home or self-care (01) | DRG 362 ==
LOC: OR 07:02 → SSU 15:14 → OBSVTOIN 10-10 14:52
PROVIDERS: ADMIT Surgery; ATTEND Surgery
PROC: 0UB98ZZ Excision of Uterus, Via Natural or Artificial Opening Endoscopic (ICD-10-PCS; 2018-10-07)
PROC: 0HTU0ZZ Resection of Left Breast, Open Approach (ICD-10-PCS; principal; 2018-10-07 11:00)
PROC: 07B60ZZ Excision of Left Axillary Lymphatic, Open Approach (ICD-10-PCS; 2018-10-07 11:00)
DX: C50.912 Malignant neoplasm of unspecified site of left female breast (principal); I50.42 Chronic combined systolic (congestive) and diastolic (congestive) heart failure; J70.1 Chronic and other pulmonary manifestations due to radiation; C77.3 Secondary and unspecified malignant neoplasm of axilla and upper limb lymph nodes; F41.9 Anxiety disorder, unspecified; I25.10 Atherosclerotic heart disease of native coronary artery without angina pectoris; J44.9 Chronic obstructive pulmonary disease, unspecified; I48.0 Paroxysmal atrial fibrillation; E03.9 Hypothyroidism, unspecified; N84.0 Polyp of corpus uteri; N95.0 Postmenopausal bleeding; I27.20 Pulmonary hypertension, unspecified; B37.2 Candidiasis of skin and nail; K21.9 Gastro-esophageal reflux disease without esophagitis; I08.3 Combined rheumatic disorders of mitral, aortic and tricuspid valves; I44.7 Left bundle-branch block, unspecified; I89.0 Lymphedema, not elsewhere classified; Z91.048 Other nonmedicinal substance allergy status; Z85.72 Personal history of non-Hodgkin lymphomas; Z95.0 Presence of cardiac pacemaker; Z80.3 Family history of malignant neoplasm of breast; Z82.49 Family history of ischemic heart disease and other diseases of the circulatory system; Z88.1 Allergy status to other antibiotic agents; Z88.0 Allergy status to penicillin; Z87.891 Personal history of nicotine dependence; Z92.21 Personal history of antineoplastic chemotherapy; Z17.0 Estrogen receptor positive status [ER+]; Z92.3 Personal history of irradiation; Z90.81 Acquired absence of spleen
CPT/HCPCS: 78195; 88305; 88307; A9270-GY; A9541; G0378; J0690; J1170; J1885; J2250; J2704; J2710; J3010; J3490

== ENCOUNTER 2018-12-26 16:55 | Inpatient (IN) | payer OTHER ==
[2018-12-26] MEDS ORDERED: Furosemide IV* 10 MG/ML 10 ML VIAL (100 MG) IV ONE (17:39)
[2018-12-26] MEDS ORDERED: Ondansetron ODT TAB* 4 MG SL PRN (17:39)
[2018-12-26] MEDS ORDERED: Albuterol HFA INHALER* 8 gm MDI INH PRN (17:44)
[2018-12-26] MEDS ORDERED: Ondansetron INJ* 2 MG/ML VIAL IV PRN (18:51)
--- OUTSIDE RECORDS SUMMARY | 2018-12-26 19:13 | XMS REPORT | Continuity of Care Document ---
:1955 External Reference #:[id number] Author Name Eleni Hinkle Care Team Providers Name Role Phone Milena Rose MD Care Team Information Explosive Ordnance Manager Unavailable Nikolai Chirinos MD Primary Care Physician Unavailable Payers Date Identification Numbers Payment Provider Subscriber Effective: Policy Number: [id number] Ring/Ambrose Patel 2009 Medicaid PayID: [id number] [address] [address] [place] [address] Problems Active Problems Provider Date Atrial flutter Milena Rose M.D. Onset: 05/09/2013 Mitral valve disorder Milena Rose M.D. Onset: 05/09/2013 Atrial fibrillation Milena Rose M.D. Onset: 10/23/2013 Electrocardiogram abnormal Milena Rose M.D. Onset: 10/23/2013 Left bundle branch block Milena Rose M.D. Onset: 08/26/2015 Paroxysmal atrial fibrillation Milena Rose M.D. Onset: 05/05/2016 Coronary artery atheroma Milena Rose M.D. Onset: 05/04/2017 Chronic combined systolic and diastolic heart Milena Rose M.D. 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 Onset: 07/25/2018 Aortic valve disorder Milena Rose M.D. Onset: 07/25/2018 Cardiac pacemaker in situ Milena Rose M.D. Onset: 09/20/2018 Chronic diastolic heart failure Milena Rose M.D. Onset: 11/04/2018 Sinus node dysfunction Milena Rose M.D. 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 Cigarette Use Quit 12 Years Ago 2006 Smokeless Tobacco Never Used Smokeless Tobacco ETOH Use Rarely consumes alcohol Tobacco Use Start: Unknown Patient is a former hx 1 pack cigarettes End: smoker per day Recreational Drug Use Denies Drug Use Tobacco Use Start: Unknown Medical Marijuana used for chemotherapy, not current Smoking Status Reviewed: 12/01/18 Medical Marijuana used for chemotherapy, not current Exercise Type/Frequency Exercises sporadically Allergies, Adverse Reactions, Alerts Active Allergies Reaction Severity Comments Date Penicillin Severe throat swelling 04/26/2012 Mold Severe 04/26/2012 Dust 04/26/2012 Dronedarone unknown 04/03/2013 Levofloxacin tachycardia 04/03/2013 Multaq difficulty breathing 05/09/2013 Levaquin itching 05/09/2013 Sotalol diarrhea, SOB, fatigue, anorexia, leg 05/16/2013 swelling and more Atenolol sleep walking/diarrhea 07/15/2018 Cardizem low BP 09/23/2018 Medications Active Medications SIG Qnty Indications Ordering Date Provider Miconazole Nitrate apply as directed 60gm Kenan Carter 11/22/2018 2% Bucky Nguyen Cream Nystatin apply as directed 1units Kacy Moody 09/23/2018 Powder to affected area MD Ant bid Dofetilide 1 tab by mouth 3xs 270caps Milena Rose, 05/03/2018 125mcg a day M.D. Capsules Oxycodone HCL 1 tabs by mouth Unknown 5mg every 4-6 hours as Tablets needed Torsemide 1 by mouth every Unknown 20mg Tablets day (15mg) Metoprolol Tartrate 1 by mouth twice a Milena Rose, day M.D. 25mg Tablets Acetaminophen ER 1 tab by mouth q4 Unknown 650mg hours as needed Tablets ER pain Potassium Chloride 20 meq by mouth Unknown daily 20Meq Packet Magnesium-Oxide 1 cap by mouth bid Unknown 400(241.3mg) mg Tablets Buspirone HCL Take 1 by mouth Unknown 5mg three times a day Tablets (patient states she is not currently using) Ventolin HFA 2 puffs inhalation Unknown four times a day 108(90Base) mcg/Act as needed Aerosol [place] 3-6-9 1 cap po once Unknown 1200mg daily (1000mg) Capsules Ranitidine HCL 1 po qd 180tabs Unknown 150mg Tablets Acidophilus/Bifidus 1 capsules by Unknown mouth twice daily 100mg Capsule Vitamin D3 1 cap po daily Unknown 400Unit Capsules Co Q 10 1 po qd Unknown 100mg Capsules Vitamin B-Complex 1 po qd 30tabs Unknown Tablets Vitamin C 1 po qd Unknown 1000mg Capsules Manoj-Mag 2 soft gel caps po Unknown Soft Gel twice daily Levothyroxine Sodium 1 po qd Unknown 75mcg Tablets Klonopin 1 tab po qd at Unknown 1mg bedtime Xarelto 1 po qd 30tabs [place], 20mg Tablets MD Nikolai History Medications Monistat 4% Cream apply to skin as Kenan Nguyen, 11/22/2018 - directed M.D. Unknown Oxycodone-Acetaminoph 1--2 tab by mouth 12tabs C50.912 Kacy Cain, - en every 4- 6 hours Unknown 5-325mg Tablets as needed for pain Nystatin topically twice a 30units Kacy Cain, 09/23/2018 - [id number] day to the skin Unknown Cream around the wound as needed Oxycodone-Acetaminoph 1 tab by mouth 8tabs Ann Marie B. 09/23/2018 - en every 6 hours as VIVIAN Vu Unknown 5-325mg Tablets needed for pain Atenolol 1 tablet by mouth 180tabs I34.0 Milena Rose, 01/17/2018 - 50mg Tablets bid M.DJudi 03/31/2018 Sotalol HCL (AF) 1/2 tab by mouth 30tabs 427.32 Milena Milton, 05/09/2013 - 80mg twice a day M.D. 05/15/2013 Tablets Clotrimazole apply twice daily Unknown - 1% Cream prn 07/24/2018 Torsemide 1 by mouth every Unknown - 15mg Tablets day 08/05/2018 Metoprolol Tartrate 1 by mouth twice Unknown - a day 06/01/2018 50mg Tablets Furosemide 1 by mouth every Unknown - 20mg Tablets day 05/25/2018 Doxycycline Take 1 Capsule By Unknown - Monohydrate Mouth Two Times 01/16/2018 100mg Daily For 10 Days Capsules Prednisone 1 tablet po x4 Unknown - 20mg Tablets day 05/04/2016 Flax Seed Oil 1 cap po daily Unknown - 1300mg 05/03/2017 Capsules Tikosyn 1 tab by mouth 180caps Milena Stewardsher, - 250mcg Capsules twice a day M.D. 05/03/2018 Slippery [place]m 2 po qd PM Unknown - 400mg 05/25/2018 Herbal Defense once daily during Unknown - Complex winter time 05/25/2018 Digoxin 1 po qd 90tabs Unknown - 0.125mg Tablets 06/16/2013 [place] Q Plus Unknown - 05/23/2014 Resveratrol 1 cap po qd pm Unknown - Cap (100mg) 11/03/2018 Alive Womens 50+ 2 tab po qd Unknown - 10/19/2016 Tablets Metoprolol Tartrate 1 po bid 180tabs I34.0 Unknown - 01/17/2018 50mg Tablets Amitriptyline HCL 1/4 tab po qhs 60tabs Unknown - 10mg 12/12/2014 Tablets Nystatin topically bid prn 15g Nikolai Chirinos, - [id number] 05/25/2018 Cream Clindamycin HCL 1 tabs PO qd X 5 4caps Unknown - 300mg Day 05/09/2013 Capsules Vital Signs Date Vital Result Comment 12/01/2018 2:09pm Heart Rate 78 /min Respiratory Rate 18 /min Body Temperature 97.1 F 11/24/2018 12:45pm Heart Rate 84 /min Respiratory Rate 16 /min Body Temperature 98.6 F 11/22/2018 11:11am Heart Rate 72 /min Respiratory Rate 16 /min Body Temperature 98.5 F 11/10/2018 1:14pm Heart Rate 72 /min BP Systolic 120 mmHg BP Diastolic 72 mmHg Respiratory Rate 16 /min Body Temperature 97.7 F 11/04/2018 11:43am Height 66 inches 5'6" Weight 155.12 lb no shoes Heart Rate 80 /min BP Systolic Sitting 118 mmHg BP Diastolic Sitting 72 mmHg BP Systolic Standing 116 mmHg BP Diastolic Standing 70 mmHg BMI (Body Mass Index) 25.0 kg/m2 Ejection Fraction 50-55% 05/18/18 echo 11/03/2018 12:53pm Heart Rate 72 /min Respiratory Rate 16 /min Body Temperature 99.0 F 10/31/2018 1:36pm Heart Rate 76 /min Respiratory Rate 16 /min Body Temperature 98.1 F 10/26/2018 3:01pm Heart Rate 78 /min Respiratory Rate 16 /min Body Temperature 99.0 F 10/21/2018 11:17am Weight 153.00 lb Heart Rate 79 /min BP Systolic 111 mmHg BP Diastolic 68 mmHg O2 % BldC Oximetry 99 % 10/20/2018 2:04pm Heart Rate 60 /min Respiratory Rate 16 /min Body Temperature 97.6 F 09/23/2018 11:10am Height 66 inches 5'6" Weight 148.00 lb Heart Rate 78 /min BP Systolic Sitting 100 mmHg BP Diastolic Sitting 68 mmHg Respiratory Rate 18 /min Body Temperature 98.0 F BMI (Body Mass Index) 23.9 kg/m2 09/20/2018 11:46am Height 66 inches 5'6" Weight 147.00 lb w/shoes Heart Rate 78 /min BP Systolic 115 mmHg Rue reg cuff BP Diastolic 75 mmHg Rue reg cuff BP Systolic Sitting 110 mmHg Rue reg cuff BP Diastolic Sitting 72 mmHg Rue reg cuff Respiratory Rate 17 /min BMI (Body Mass Index) 23.7 kg/m2 Ejection Fraction 50-55% 05/18/18 echo 09/01/2018 1:24pm Height 66 inches 5'6" Weight 147.00 lb Heart Rate 74 /min BP Systolic 140 mmHg BP Diastolic 90 mmHg Respiratory Rate 16 /min Body Temperature 98.2 F BMI (Body Mass Index) 23.7 kg/m2 08/25/2018 1:28pm Height 65.5 inches 5'5.50" Weight 142.00 lb Heart Rate 80 /min BP Systolic 125 mmHg BP Diastolic 72 mmHg O2 % BldC Oximetry 100 % BMI (Body Mass Index) 23.3 kg/m2 Last Menstrual Period [id number] 07/25/2018 2:18pm Height 65.5 inches 5'5.50" Weight 143.31 lb Heart Rate 88 /min BP Systolic Sitting 120 mmHg Rue reg cuff BP Diastolic Sitting 75 mmHg Rue reg cuff BP Systolic Standing 117 mmHg Rue Reg Cuff BP Diastolic Standing 70 mmHg Rue Reg Cuff Respiratory Rate 17 /min BMI (Body Mass Index) 23.5 kg/m2 07/15/2018 11:48am Height 65.5 inches 5'5.50" Weight 141.00 lb Heart Rate 76 /min BP Systolic Sitting 96 mmHg BP Diastolic Sitting 58 mmHg Respiratory Rate 14 /min O2 % BldC Oximetry 99 % BMI (Body Mass Index) 23.1 kg/m2 05/26/2018 1:54pm Height 65.5 inches 5'5.50" Weight 150.00 lb BP Systolic Sitting 140 mmHg LL Calf LG Cuff BP Diastolic Sitting 64 mmHg LL Calf LG Cuff Respiratory Rate 18 /min BMI (Body Mass Index) 24.6 kg/m2 04/01/2018 3:38pm Height 65.5 inches 5'5.50" Weight 175.25 lb Heart Rate 72 /min BP Systolic 106 mmHg right arm BP Diastolic 70 mmHg right arm BMI (Body Mass Index) 28.7 kg/m2 Ejection Fraction 50-55% Echocardiogram 11/26/2017 01/17/2018 3:22pm Height 65.5 inches 5'5.50" Weight 162.00 lb with shoes Heart Rate 70 /min BP Systolic Sitting 120 mmHg Rue reg cuff BP Diastolic Sitting 60 mmHg Rue reg cuff BP Systolic Standing 120 mmHg Rue reg cuff BP Diastolic Standing 70 mmHg Rue reg cuff Respiratory Rate 16 /min BMI (Body Mass Index) 26.5 kg/m2 Ejection Fraction 50-55% date 11/26/17 ECHO 05/04/2017 4:13pm Height 65.5 inches 5'5.50" Weight 174.00 lb with shoes Heart Rate 70 /min BP Systolic Sitting 100 mmHg Rue reg cuff BP Diastolic Sitting 70 mmHg Rue reg cuff BP Systolic Standing 120 mmHg RUe reg cuff BP Diastolic Standing 72 mmHg RUe reg cuff Respiratory Rate 17 /min BMI (Body Mass Index) 28.5 kg/m2 Ejection Fraction 55% date 07/11/14 ECHO 10/20/2016 3:29pm Height 65.5 inches 5'5.50" Weight 176.00 lb w/shoes Heart Rate 74 /min BMI (Body Mass Index) 28.8 kg/m2 Ejection Fraction 55% Echo 07/11/14 05/05/2016 3:47pm Height 65.5 inches 5'5.50" Weight 176.00 lb with shoes BP Systolic Sitting 110 mmHg Ra reg cuff BP Diastolic Sitting 80 mmHg Ra reg cuff BP Systolic Standing 104 mmHg Ra reg cuff BP Diastolic Standing 80 mmHg Ra reg cuff BMI (Body Mass Index) 28.8 kg/m2 Ejection Fraction 55% date 07/11/2014 ECHO 08/26/2015 4:19pm Height 65.5 inches 5'5.50" Weight 182.00 lb without shoes BP Systolic Sitting 120 mmHg Ra reg cuff BP Diastolic Sitting 80 mmHg Ra reg cuff BMI (Body Mass Index) 29.8 kg/m2 12/31/2014 3:25pm Height 65.5 inches 5'5.50" Weight 178.00 lb [...] Ejection Fraction 55% date 07/11/14 ECHO 05/28/2014 4:04pm Height 65.5 inches 5'5.50" Weight 175.00 lb with shoes Heart Rate 64 /min regular BP Systolic Sitting 120 mmHg right arm reg cuff BP Diastolic Sitting 86 mmHg right arm reg cuff BP Systolic Standing 116 mmHg right arm reg cuff BP Diastolic Standing 82 mmHg right arm reg cuff Respiratory Rate 18 /min BMI (Body Mass Index) 28.7 kg/m2 10/23/2013 3:41pm Height 65.5 inches 5'5.50" Weight 167.00 lb without shoes Heart Rate 80 /min BP Systolic Sitting 118 mmHg Ra reg cuff BP Diastolic Sitting 84 mmHg Ra reg cuff BP Systolic Standing 120 mmHg Ra reg cuff BP Diastolic Standing 82 mmHg Ra reg cuff Respiratory Rate 17 /min BMI (Body Mass Index) 27.4 kg/m2 06/19/2013 2:29pm Height 65.5 inches 5'5.50" Weight 160.00 lb [...] BMI (Body Mass Index) 26.2 kg/m2 05/16/2013 3:45pm Height 65.5 inches 5'5.50" Weight 174.00 lb up 1 lb Heart Rate 108 /min BP Systolic Sitting 122 mmHg Ra reg cuff BP Diastolic Sitting 88 mmHg Ra reg cuff BP Systolic Standing 118 mmHg Ra BP Diastolic Standing 84 mmHg Ra Respiratory Rate 16 /min BMI (Body Mass Index) 28.5 kg/m2 05/09/2013 4:04pm Height 65.5 inches 5'5.50" Weight 173.00 lb Heart Rate 64 /min BP Systolic Sitting 132 mmHg Ra reg cuff BP Diastolic Sitting 70 mmHg Ra reg cuff BP Systolic Standing 126 mmHg Ra BP Diastolic Standing 80 mmHg Ra BMI (Body Mass Index) 28.3 kg/m2 Results Test Date Facility Test Result H/L Range Note Basic Metabolic 11/17/2018 [facility] Sodium 137 mmol/L N 135- 145 Panel [address] [place] [address] [phone] Potassium 4.6 mmol/L N 3.5-5.0 Chloride 96 mmol/L Low 101-111 Co2 Carbon Dioxide 33 mmol/L High 22-32 Anion Gap 8 mmol/L N 2-11 Glucose 138 mg/dL High 70-100 Blood Urea Nitrogen 34 mg/dL High 6-24 Creatinine 0.96 mg/dL High 0.51-0.95 BUN/Creatinine Ratio 35.4 High 8-20 Calcium 9.9 mg/dL N 8.6-10.3 Egfr Non- 58.9 >60 Egfr 71.3 >60 1 Laboratory test 11/17/2018 [facility] Magnesium 2.3 mg/dL N 1.9-2.7 [address] [place] [address] [phone] CBC Auto Diff 09/23/2018 [facility] White Blood 6.2 N 3.5- 10.8 DRIVE Count 10^3/[place] [address] [phone] Red Blood Count 4.62 10^6/uL N 3.70-4.87 Hemoglobin 14.0 g/dL N 12.0-16.0 Hematocrit 42 % High 33-41 Mean Corpuscular Volume 92 fL N 80-97 Mean Corpuscular Hemoglobin 30 pg N 27-31 Mean Corpuscular HGB Conc 33 g/dL N 31-36 Red Cell Distribution Width 16 % High 10.5-15 Platelet Count 317 10^3/uL N 150-450 Mean Platelet Volume 8.3 fL N 7.4-10.4 Abs Neutrophils 4.1 10^3/uL N 1.5-7.7 Abs Lymphocytes 1.0 10^3/uL N 1.0-4.8 Abs Monocytes 0.9 10^3/uL High 0-0.8 Abs Eosinophils 0 10^3/uL N 0-0.6 Abs Basophils 0.1 10^3/uL N 0-0.2 Abs Nucleated RBC 0 10^3/uL Granulocyte % 67.0 % Lymphocyte % 16.2 % Monocyte % 15.4 % Eosinophil % 0.3 % Basophil % 1.1 % Nucleated Red Blood Cells % 0.1 Basic Metabolic 09/23/2018 [facility] Sodium 133 mmol/L Low 135-145 Panel [address] [place] [address] [phone] Potassium 4.5 mmol/L N 3.5-5.0 Chloride 95 mmol/L Low 101-111 Co2 Carbon Dioxide 32 mmol/L N 22-32 Anion Gap 6 mmol/L N 2-11 Glucose 107 mg/dL High 70-100 Blood Urea Nitrogen 31 mg/dL High 6-24 Creatinine 0.83 mg/dL N 0.51-0.95 BUN/Creatinine Ratio 37.3 High 8-20 Calcium 9.8 mg/dL N 8.6-10.3 Egfr Non- 69.9 >60 Egfr 84.6 >60 3 Type & Screen 09/23/2018 [facility] Patient Blood Type B Positive [address] [place] [address] [phone] Antibody Screen NEGATIVE Comp Metabolic Panel 08/30/2018 [facility] Sodium 132 mmol/L Low 135-145 [address] [place] [address] [phone] Potassium 4.4 mmol/L N 3.5-5.0 Chloride 95 mmol/L Low 101-111 Co2 Carbon Dioxide 31 mmol/L N 22-32 Anion Gap 6 mmol/L N 2-11 Glucose 129 mg/dL High 70-100 Blood Urea Nitrogen 31 mg/dL High 6-24 Creatinine 0.78 mg/dL N 0.51-0.95 BUN/Creatinine Ratio 39.7 High 8-20 Calcium 9.8 mg/dL N 8.6-10.3 Total Protein 7.9 g/dL N 6.4-8.9 Albumin 4.1 g/dL N 3.2-5.2 Globulin 3.8 g/dL N 2-4 Albumin/Globulin Ratio 1.1 N 1-3 Total Bilirubin 0.50 mg/dL N 0.2-1.0 Alkaline Phosphatase 39 U/L N 34-104 Alt 36 U/L N 7-52 Ast 33 U/L N 13-39 Egfr Non- 75.1 >60 Egfr 90.9 >60 4 CBC Auto Diff 08/30/2018 [facility] White Blood 7.8 10^3/uL N 3.5-10.8 [address] [place] [address] [phone] Red Blood Count 4.63 10^6/uL N 4.00-5.40 Hemoglobin 13.5 g/dL N 12.0-16.0 Hematocrit 41 % N 35-47 Mean Corpuscular Volume 89 fL N 80-97 Mean Corpuscular Hemoglobin 29 pg N 27-31 Mean Corpuscular HGB Conc 33 g/dL N 31-36 Red Cell Distribution Width 18 % High 10.5-15 Platelet Count 287 10^3/uL N 150-450 Mean Platelet Volume 8.0 fL N 7.4-10.4 Abs Neutrophils 6.1 10^3/uL N 1.5-7.7 Abs Lymphocytes 0.9 10^3/uL Low 1.0-4.8 Abs Monocytes 0.7 10^3/uL N 0-0.8 Abs Eosinophils 0 10^3/uL N 0-0.6 Abs Basophils 0.1 10^3/uL N 0-0.2 Abs Nucleated RBC 0 10^3/uL Granulocyte % 78.3 % Lymphocyte % 12.0 % Monocyte % 8.5 % Eosinophil % 0.5 % Basophil % 0.7 % Nucleated Red Blood Cells % 0 Laboratory test 08/25/2018 [facility] Surgical SEE RESULT [address] [place] [address] [phone] Laboratory test 08/25/2018 [facility] Cytology SEE RESULT [address] [place] [address] [phone] Comp Metabolic 07/27/2018 [facility] Sodium 135 mmol/L N 135- [address] [place] [address] [phone] Potassium 4.1 mmol/L N 3.5-5.0 Chloride 94 mmol/L Low 101-111 Co2 Carbon Dioxide 34 mmol/L High 22-32 Anion Gap 7 mmol/L N 2-11 Glucose 120 mg/dL High 70-100 Blood Urea Nitrogen 35 mg/dL High 6-24 Creatinine 0.78 mg/dL N 0.51-0.95 BUN/Creatinine Ratio 44.9 High 8-20 Calcium 9.6 mg/dL N 8.6-10.3 Total Protein 7.9 g/dL N 6.4-8.9 Albumin 3.6 g/dL N 3.2-5.2 Globulin 4.3 g/dL High 2-4 Albumin/Globulin Ratio 0.8 Low 1-3 Total Bilirubin 0.60 mg/dL N 0.2-1.0 Alkaline Phosphatase 45 U/L N 34-104 Alt 51 U/L N 7-52 Ast 45 U/L High 13-39 Egfr Non- 75.1 >60 Egfr 90.9 >60 7 Basic Metabolic 05/26/2018 [facility] Sodium 133 mmol/L Low 135-[address] [place] [address] [phone] Potassium 4.2 mmol/L N 3.5-5.0 Chloride 89 mmol/L Low 101-111 Co2 Carbon Dioxide 36 mmol/L High 22-32 Anion Gap 8 mmol/L N 2-11 Glucose 147 mg/dL High 70-100 Blood Urea Nitrogen 21 mg/dL N 6-24 Creatinine 0.70 mg/dL N 0.51-0.95 BUN/Creatinine Ratio 30.0 High 8-20 Calcium 9.3 mg/dL N 8.6-10.3 Egfr Non- 85.1 >60 Egfr 102.9 >60 8 Laboratory test 05/26/2018 [facility] Magnesium 2.1 mg/dL N 1.9-2.[address] [place] [id number] [phone] Laboratory 05/18/2018 N2N/CCD Import Absolute 0.1 10^3/ul 0-0.2 Studies Basophils (auto) Absolute Eosinophils (auto) 0.1 10^3/ul 0-0.6 Absolute Lymphocytes (auto) 0.6 10^3/ul Low 1.0-4.8 Absolute Monocytes (auto) 0.8 10^3/ul 0-0.8 Absolute Neutrophils (auto) 6.3 10^3/ul 1.5-7.7 Anion Gap 7 mmol/L 2-11 BUN/Creatinine Ratio 26.7 High 8-20 Basophils (%) (Auto) 0.8 % 0-2 Blood Urea Nitrogen 16 mg/dL 6-24 Calcium Level 8.7 mg/dL 8.6-10.3 Carbon Dioxide Level 40 mmol/L High 22-32 Chloride Level 91 mmol/L Low 101-111 Creatinine 0.60 mg/dL 0.51-0.95 Eosinophils (%) (Auto) 0.8 % 0-6 Estimated GFR () 123.0 Estimated GFR (Non- 101.6 Glucose Level 96 mg/dL 70-100 Hematocrit 37 % 35-47 Hemoglobin 12.0 g/dL 12.0-16.0 Lymphocytes (%) (Auto) 7.6 % Low 25-47 Mean Corpuscular Hemoglobin 28 pg 27-31 Mean Corpuscular Hemoglobin Concent 32 g/dL 31-36 Mean Corpuscular Volume 87 fL 80-97 Mean Platelet Volume 7.6 fL 7.4-10.4 Monocytes (%) (Auto) 9.9 % High 0-7 Neutrophils (%) (Auto) 80.9 % 38-83 Nucleated RBC Absolute Count (auto) 0 10^3/ul Nucleated Red Blood Cells % 0.1 Platelet Count 479 10^3/ul High 150-450 Potassium Level 3.8 mmol/L 3.5-5.0 Red Blood Count 4.24 10^6/ul 4.00-5.40 Red Cell Distribution Width 17 % High 10.5-15 Sodium Level 138 mmol/L 135-145 White Blood Count 7.7 10^3/ul 3.5-10.8 Laboratory Studies 05/17/2018 N2N/CCD Import Magnesium Level 2.0 mg/dL 1.9-2.7 Laboratory Studies 05/17/2018 N2N/CCD Import C-Reactive 70.38 mg/L High 0 -8.00 Protein Erythrocyte Sedimentation Rate 42 mm/Hr High 0-30 Laboratory 05/14/2018 N2N/CCD Import B-Type Natriuretic 817 pg/mL High Studies Peptide Laboratory 05/12/2018 N2N/CCD Import Vancomycin Level 25.6 g/mL Studies Trough Laboratory 05/11/2018 N2N/CCD Import Procalcitonin 0.2 ng/mL Studies Laboratory 05/09/2018 N2N/CCD Import Urine Specific 1.005 Low 1.010- Studies [place] 1.030 Urine pH 6.0 5-9 Laboratory 05/09/2018 N2N/CCD Import Free Thyroxine 1.15 ng/dL High 0.61- 1.12 Studies Thyroid Stimulating Hormone (TSH) 4.27 mcIU/mL 0.34-5.60 Laboratory 05/08/2018 N2N/CCD Import Activated Partial 36.2 seconds 26.0 -36.3 Studies Thromboplast Time Alanine Aminotransferase (Alt/SGPT) 18 U/L 7-52 Albumin 3.2 g/dL 3.2-5.2 Albumin/Globulin Ratio 0.8 Low 1-3 Alkaline Phosphatase 53 U/L 34-104 Aspartate Amino Transf (Ast/Sgot) 20 U/L 13-39 Creatine Kinase MB 1.3 ng/mL 0.6-6.3 Globulin 3.9 g/dL 2-4 International Ratio (Anticoag Ther) 2.74 High 0.77-1.02 Lactic Acid Level 1.7 mmol/L 0.5-2.0 Total Bilirubin 1.40 mg/dL High 0.2-1.0 Total Creatine Kinase 24 U/L 10-223 Total Protein 7.1 g/dL 6.4-8.9 Troponin I 0.01 ng/mL Laboratory Studies 05/05/2018 N2N/CCD Import Potassium Level 4.9 mmol/L 3.5-5.0 Basic Metabolic 04/06/2013 [facility] Sodium 137 mmol/L 133- 145 Panel [address] [place] [address] [phone] Potassium 4.6 mmol/L 3.5-5.0 Chloride 98 mmol/L Low 101-111 Co2 Carbon Dioxide 29.0 mmol/L 22-32 Anion Gap 10.0 mmol/L 2-11 Glucose 111 mg/dL High 70-100 Blood Urea Nitrogen 11 mg/dL 6-24 Creatinine 0.80 mg/dL 0.50-1.40 BUN/Creatinine Ratio 13.8 8-20 Calcium 8.9 mg/dL 8.1-9.9 Egfr Non- 74.2 >60 Egfr 95.4 >60 9 Laboratory test 04/06/2013 [facility] Digoxin 0.7 ng/mL 0.5- 1.5 10 finding [address] [place] [address] [phone] Acid Fast 01/21/2012 [facility] [address] [place] [address] ------ [place] [address] <SEE NOTE> [phone] Acid Fast 01/21/2012 [facility] [address] [place] [address] [place] [address] <SEE NOTE> [phone] Acid Fast 01/21/2012 [facility] [address] [place] [address] [place] [address] <SEE NOTE> [phone] MRSA/Vre Screen 12/09/2010 [facility] MRSA/Vre NFICU [address] [facility] [place] [address] [phone] MRSA/Vre Screen 11/08/2010 [facility] MRSA/Vre NFICU 15 [address] [facility] [place] [address] [phone] Cytology Non-Fast Food Attendant 11/07/2010 [facility] Cytology Non [address] Fast Food Attendant [place] [address] <SEE NOTE> [phone] Cytology Non-Fast Food Attendant 12/27/2009 [facility] Cytology Non [address] Fast Food Attendant [place] [address] <SEE NOTE> [phone] Pleural Fluid 12/27/2009 [facility] Pleural Fluid CLOUDY,RED Cell Count [address] [place] [address] [phone] Pleural Fluid Volume 3.0 Pleural Fluid WBC 2300 Pleural Fluid RBC [address] Pleural Fluid Polys 7 Pleural Fluid Lymph 86 Pleural Fluid [place] 1 Pleural Fluid Non Hemo 6 Pleural Fluid Comments (SEE NOTE) 18 Body Fluid 12/27/2009 [facility] Body Fluid NG4 [address] [address] [phone] Body Fluid C&S 12/27/2009 [facility] Body Fluid NO ORGANISMS SEE [address] Smear <SEE NOTE> [place] [address] [phone] 1 Because ethnic data is not always [...] 5 Kidney failure <15 (or dialysis) 2 May Copy Result to: NIKOLAI CHIRINOS ([id number]) 3 Because ethnic data is not always readily [...] 15-29 5 Kidney failure <15 (or dialysis) 4 Because ethnic data is not always readily [...] 15-29 5 Kidney failure <15 (or dialysis) 5 SEE RESULT BELOW Name: KALLIE PATEL : [address]: Raffy Hernandez MD Acct: [id number] Unit: [id number] AGE: 62 Location: [facility] Re08/25/18 SEX: F Status: REG REF SPEC: [id number] ZAYNAB: 08/25/181427 [facility] DR: Raffy Hernandez MD REQ: [id number] RECD: 08/25/18 STATUS: SOUT _ ORDERED: LEVEL 4 COMMENTS: [id number] FINAL DIAGNOSIS Uterus, endometrium, curettage: -- Benign endometrial polyp. -- Inactive endometrium. -- No evidence of hyperplasia or neoplasia identified. PRE-OPERATIVE DIAGNOSIS Postmenopausal bleeding GROSS DESCRIPTION The specimen is received in formalin with no source identified and a requisition labeled, Endometrial Biopsy, and consists of a 2.0 x 1.4 x 0.2 cm aggregate of clear to cosme-brown mucus admixed possible soft tissue fragments. The specimen is filtered and submitted entirely in one cassette. Signed by and Reported on: Jaspreet Valverde MD [address] END OF REPORT DEPARTMENT OF PATHOLOGY, [address] [place] [address] Jaspreet Valverde M.D. Director [facility] # [id number] 6 SEE RESULT BELOW Name: KALLIE PATEL : [address]: Raffy Hernandez MD Acct: [id number] Unit: [id number] AGE: 62 Location: [facility] Re08/25/18 SEX: F Status: REG REF SPEC: [id number] ZAYNAB: 08/25/[address]: Raffy Hernandez MD REQ: [id number] RECD: 08/25/18 STATUS: SOUT _ ORDERED: TP IMAGE ANALYS, HPV/Thin Prep COMMENTS: [id number] Negative for Intraepithelial lesion or Malignancy Date Time Test Result Flag (u) Normal Range 08/25/18 6071 @ HPV RNA Negative Negative @ @ The high-risk HPV types detected by the assay include: 16, @ 18, 31, 33, 35, 39, 45, 51, 52, 56, 58, 59, 66, and 68. A. Ectocervical/Endocervical Specimen Adequacy: Satisfactory of evaluation Transformation zone component identified Patient Information: HPV: High risk HPV RNA testing regardless of pap results. Actual Specimen Date: 08/25/18 ?: N Post Menopausal?: Y Hysterectomy?: N Previous Abnormal Pap Smears?:N Other Pertinent History: postmenopausal bleeding Signed by and Reported on: THONY Jones (ASCP) 1257 This Pap test was evaluated with the assistance of the App[employer]iop Test Imaging System. Due to cytologic findings at the home care and home health aides teacher microscope, comprehensive manual rescreening by a Founder Chairman And Chief Creative Officer may be required. The Pap Smear is a screening test designed to aid in the detection of premalignant and malignant conditions of the uterine cervix. It is not a diagnostic procedure and should not be used as the sole means of detecting cervical cancer. Both false- positive and false- negative reports do occur. Depending on your risk status, a Pap smear should be obtained and evaluated every 1-3 years. END OF REPORT DEPARTMENT OF PATHOLOGY, [address] [place] [address] Jaspreet Valverde M.D. Director [facility] # [id number] 7 Because ethnic data is not always [...] 5 Kidney failure <15 (or dialysis) 9 Because ethnic data is not always readily [...] 15-29 5 Kidney failure <15 (or dialysis) 10 Levels at the lower end of the range may be needed for symptomatic heart failure and levels at the higher end of the range for rate control. 11 RUN DATE: 02/23/12 [facility] [place] NMI LIVE PAGE 1 RUN TIME: 936 Specimen Inquiry RUN USER: INTERFACE Name: KALLIE PATEL Status: DIS IN Re01/18/12 Age/Sex: 56/F Unit#: [id number] [facility] SPEC #: [id number] ZAYNAB: 01/21/12 STATUS: RES REQ #: [id number] RECD: 01/21/[address]: Ferrer MD,Lucy Davis SOURCE: BODY FLUID ENTR: 01/21/[address] [facility] [address]: Lang TORRE, Whitney Wooten SPDESC: PLEURAL [place] Sera TORRE,Daisha ORDERED: ACID FAST CULT Procedure Result Verified Site > ACID FAST CULTURE Preliminary 02/23/12936 ML Culture, Mycobacterium No growth after 30 days Test performed by: [employer] [address] [place] [address] - [facility] Permit #[id number] [facility] [employer] [place] [address] DEPARTMENT OF PATHOLOGY, [facility] [employer] [place], [place] [address] [facility] Permit #[id number] Jaspreet Sudilovsky,M.DJudi Dias M.D. Email Campaign Manager 12 RUN DATE: 03/09/12 [facility] [place] NMI LIVE PAGE 1 RUN TIME: 931 Specimen Inquiry RUN USER: INTERFACE Name: KALLIE PATEL Status: DIS IN Re01/18/12 Age/Sex: 56/F Unit#: [id number] Location: [facility] : 57 SPEC #: [id number] ZAYNAB: 01/21/12-1634 STATUS: EZIO REQ #: [id number] RECD: 01/21/[address]: Ferrer MD,Lucy Davis SOURCE: BODY FLUID ENTR: 01/21/[address]: Lang TORRE, Whitney [facility] [place] Sera TORRE,Daisha ORDERED: ACID FAST CULT Procedure Result Verified Site > ACID FAST CULTURE Preliminary 03/09/12- 931 ML Culture, Mycobacterium No growth after 45 days Test performed by: [address] [address] - [facility] Permit #[id number] [address] [place] [address] DEPARTMENT OF PATHOLOGY, [address] [place] [address] [facility] Permit #[id number] Jaspreet Valverde M.D. Director Ankita Dias M.D. Email Campaign Manager 13 RUN DATE: 03/24/12 [facility] [place] NMI LIVE PAGE 1 RUN TIME: 1211 Specimen Inquiry RUN USER: INTERFACE Name: KALLIE PATEL Status: DIS IN Re01/18/12 Age/Sex: 56/F Unit#: [id number] Location: [facility] : 57 SPEC #: [id number] ZAYNAB: 01/21/12 STATUS: AMMON RELilliam #: [id number] RECD: 01/21/[address] [facility] [address]: Ferrer MD,Lucy Davis SOURCE: BODY FLUID ENTR: 01/21/[address] [facility] [address]: Lang TORRE, Whitney Wooten SPDESC: [place] Sera TORRE,Daisha ORDERED: ACID FAST CULT Procedure Result Verified Site > ACID FAST CULTURE Final 03/24/12- 1211 ML Culture, Mycobacterium No growth after 60 days of incubation. Test performed by: [employer] [address] [place] [address] - [facility] Permit #[id number] [address] [place] [address] DEPARTMENT OF PATHOLOGY, [address] [place] [address] [facility] Permit #[id number] Bucky Aguilar M.D. Email Campaign Manager 14 NO MRSA ISOLATED 15 NO MRSA ISOLATED 16 ---- RUN DATE: 11/12/10 [facility] [place] NMI LIVE PAGE 1 RUN TIME: 1151 Specimen Inquiry RUN USER: INTERFACE -- Name: KALLIE PATEL Status: DIS IN Re11/08/10 Age/Sex: 55/F Unit#: [id number] Location: [facility] : 57 -- Specimen: [id number] SOUT Spec [...] similar findings. Initial evaluation performed by Kd CHAU([facility]) 11/10/10 Final Interpretation electronically signed by: ANKITA DIAS 11/12/10 1151 -- DEPARTMENT OF PATHOLOGY, [address] [place] [address] [facility] Permit #[id number] Bucky Aguilar M.D. Filler Shaker Dir ryan -- 17 ---- RUN DATE: 12/30/09 [facility] [place] NMI LIVE PAGE 1 RUN TIME: 4828 Specimen Inquiry RUN USER: INTERFACE -- Name: KALLIE PATEL Accamanda#: [id number] Status: DIS IN Re12/26/09 Age/Sex: 54/F Unit#: [id number] Location: : 57 -- Specimen: [id number] SOUT Spec Date: 12/27/[address]: Nikolai Hopkins MD Spec Type: CYTOLOGY Received: 12/27/09-7171 Copies to: Daisha claire MD SOURCE BODY FLUID (SITE): Pleural PATIENT INFORMATION ACTUAL COLLECTION DATE: 12/27/09 PATIENT HISTORY: hodgkins lymphoma GROSS DESCRIPTION 30 mls of bloody,cloudy pleural fluid Specimen sent for Flow Cytometry on 12/27/09 to Labs in [place], [place]. DIAGNOSIS Mesothelial cells, mature lymphocytes, macrophages, and blood. No evidence of non- Hodgkin or Hodgkin lymphoma. COMMENT Flow has been performed at [facility] in [place], [place]. The testing reveals: Patient Name: KALLIE PATEL Collection Date: 12/27/2009 Ordering Physician: Jaspreet Valverde M.D. Received Date: 12/28/2009 Treating Physician: Yunier Manzano Report Date: 12/30/2009 Ordering Facility: [facility] Ref #: [id number] Medical Record #: Not Given Specimen ID #: [id number] Date of ,Sex: 1955, N Flow Cytometry Immunophenotypic Report INTERPRETATION: PLEURAL FLUID, RIGHT LUNG: NO LYMPHOID MONOCLONALITY OR ABERRANT IMMUNOPHENOTYPIC EXPRESSION DETECTED. -- DEPARTMENT OF PATHOLOGY, [address] [place] [address] [facility] Permit #[id number] Bucky Aguilar M.D. Assistant Dir ector -- -- RUN DATE: 12/30/09 [facility] [place] NMI LIVE PAGE 2 RUN TIME: 1338 Specimen Inquiry RUN USER: INTERFACE -- Name: KALLIE PATEL Status: DIS IN Re12/26/09 Age/Sex: 54/F Unit#: [id number] Location: 4S : 57 -- -- CONTINUED -- COMMENT (Continued) Comments: Clinical and morphologic correlation is recommended. Submitted Dx: Evaluation for non-Hodgkin lymphoma Viability: 98% Flow Differential Population Analysis Lymphocytes: 97% B-cells: 18%, polyclonal/polytypic sIg light chain pattern T-cells: no aberrant expression of the markers tested CD4:CD8=6.5 NK-cells: 3% (not increased) [id number] 3% events/ debris: No significant reactivity with the markers tested (contains rare non-hematolymphoid cells) Antibodies Performed: CD2, CD3, CD4, CD5, CD7, CD8, CD19, [place], Lambda, CD20, CD23, FMC-7, CD11b, CD10, CD45, HLA-DR, CD38, CD56, CD30 (Original [facility] report available upon request by calling Pathology at [phone]). Initial evaluation performed by Rosetta STEWART([facility]) 12/30/09 Final Interpretation electronically signed by: ANKITA DIAS 12/30/09 1338 -- -- DEPARTMENT OF PATHOLOGY, [address] [place] [address] [facility] Permit #[id number] Jaspreet Valverde M.D. Director Ankita Dias M.D. Filler Shaker Dir ryan -- 18 REVIEWED BY ANKITA DIAS MD NEGATIVE FOR MALIGNANT CELLS 19 FINAL: NO GROWTH DAY 4 20 NO ORGANISMS SEEN BY CYTOSPIN SMEAR FEW Procedures Date Code Description Status 10/27/2018 02522 Icd Eval Sing,Dual,Multi Lead Remote Recpt Transm Tech Completed Rev Tech S 10/27/2018 86229 Icd Eval Sing,Dual,Multi Lead Remote Recpt Transm Tech Completed Rev Tech S 10/27/2018 81102 Pacemaker Check Remote Up To 90Days Completed Single,Dual,Multiple Lead 10/27/2018 60683 Pacemaker Check Remote Up To 90Days Completed Single,Dual,Multiple Lead 10/07/2018 10975 Hysteroscopy, Surgical W/Biopsy Endometrium/Polpectomy Completed W/W/O D&C 10/07/2018 90126 Mastectomy Mod Radical Not Including Pectoralis Major Completed Muscle 10/07/2018 52756 Mastectomy Mod Radical Not Including Pectoralis Major Completed Muscle 09/20/2018 14497 EKG Tracing & Interpretation Completed 08/25/2018 61688 Endometrial Sampling W Or W/O Endocervical BX W Or W/O Completed Cerv Dilat 07/27/2018 10527887 Mammogram Completed 07/25/2018 89605 Pace Maker Eval W/Iterative Adjment Dual Lead Completed 07/25/2018 74586 Pace Maker Eval W/Iterative Adjment Dual Lead Completed 06/16/2018 31960 Pace Maker Eval W/Iterative Adjment Dual Lead Completed 06/16/2018 25600 Pace Maker Eval W/Iterative Adjment Dual Lead Completed 05/26/2018 56769 EKG Tracing & Interpretation Completed 05/19/2018 97034 Pace Maker Eval W/Iterative Adjment Dual Lead Completed 05/19/2018 30268 EKG, Interpretation Only Completed 05/18/2018 54818 EKG, Interpretation Only Completed 05/18/2018 [address] Sequential Atrial And Ventricular Completed 05/15/2018 99610 EKG, Interpretation Only Completed 05/14/2018 97636 EKG, Interpretation Only Completed 05/13/2018 88280 EKG, Interpretation Only Completed 05/06/2018 43368 EKG, Interpretation Only Completed 05/05/2018 38649 EKG, Interpretation Only Completed 05/04/2018 00027 EKG, Interpretation Only Completed 05/03/2018 81448 EKG, Interpretation Only Completed 04/06/2018 44435 Echocardiogram, Limited Study Completed 04/04/2018 50127 ECHO Transthorasic Realtime 2D W Doppler & Color Flow Completed Hosp 04/01/2018 45963 EKG Tracing & Interpretation Completed 01/17/2018 28166 EKG Tracing & Interpretation Completed 11/26/2017 89069 ECHO Transthorasic Realtime 2D W Doppler & Color Flow Completed Hosp 05/04/2017 71562 EKG Tracing & Interpretation Completed 10/20/2016 76132 EKG Tracing & Interpretation Completed 05/05/2016 95552 EKG Tracing & Interpretation Completed 08/26/2015 20547 EKG Tracing & Interpretation Completed 12/31/2014 97758 EKG Tracing & Interpretation Completed 07/11/2014 97308 Echocardiogram, Limited Study Completed 05/28/2014 69419 EKG Tracing & Interpretation Completed 05/15/2014 57676 ECHO Transthoracic, Real-Time 2D With Doppler And Color Completed Flow 10/23/2013 52364 EKG Tracing & Interpretation Completed 06/19/2013 44750 EKG Tracing & Interpretation Completed 06/05/2013 52957 Rhythm ECG With Interp Completed 06/05/2013 12069 EKG, Interpretation Only Completed 06/04/2013 82250 EKG, Interpretation Only Completed 06/03/2013 61340 EKG, Interpretation Only Completed 06/02/2013 06749 EKG, Interpretation Only Completed 06/01/2013 81113 EKG, Interpretation Only Completed 05/16/2013 83404 EKG Tracing & Interpretation Completed 04/21/2013 24220 ECHO Transthoracic, Real-Time 2D With Doppler And Color Completed Flow 04/06/2013 13375 EKG, Interpretation Only Completed 04/03/2013 88563 EKG Tracing & Interpretation Completed 03/21/2013 85572 EKG, Interpretation Only Completed 03/19/2013 46264 EKG, Interpretation Only Completed 04/26/2012 12416 EKG Tracing & Interpretation Completed 01/28/2012 63171 EKG, Interpretation Only Completed 12/26/2009 18908 EKG, Interpretation Only Completed Encounters Type Date Location Provider Dx Diagnosis Office Visit 11/04/2018 [facility] Milena Rose, 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 I48.0 Paroxysmal atrial fibrillation I49.5 Sick sinus syndrome Z95.0 Presence of cardiac pacemaker I35.0 Nonrheumatic aortic (valve) stenosis I34.0 Nonrheumatic mitral (valve) insufficiency I50.32 Chronic diastolic (congestive) heart failure [facility] Polyp of corpus 11:00a [facility] Hernandez MD uteri Office Visit 09/20/2018 Shanthi Rose, Z01.810 Encounter for 12:00p Cardiology Of Bucky preprocedural [facility] cardiovascular examination C50.912 Malignant neoplasm of unspecified site of left female breast I50.32 Chronic diastolic (congestive) heart failure Z95.0 Presence of cardiac pacemaker I48.0 Paroxysmal atrial fibrillation I35.0 Nonrheumatic aortic (valve) stenosis I34.0 Nonrheumatic mitral (valve) insufficiency I44.7 Left bundle-branch block, unspecified Office Visit 09/01/2018 Surgical Kacy Fransisco N63.20 Unspecified lump in 1:00p [facility] MD Ant the left breast, [facility] unspecified quadrant Office Visit 08/25/2018 [facility] N95.0 Postmenopausal 1:30p [facility] Hernandez MD bleeding R93.89 Abnormal findings on dx imaging of ot body structures N88.8 Other specified noninflammatory disorders of cervix uteri Z79.01 long-term (current) use of anticoagulants Z12.4 Encounter for screening for malignant neoplasm of cervix Office Visit 07/25/2018 2:40p [facility] Milena Rose I50.42 Chronic combined Of Rhys Lawler 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 I34.0 Nonrheumatic mitral (valve) insufficiency I48.0 Paroxysmal atrial fibrillation I35.0 Nonrheumatic aortic (valve) stenosis Office Visit 07/15/2018 12:00p Pulmonology And Hortencia J44.9 Chronic Sleep Services Of MD Marcial obstructive Vice President Of Development pulmonary disease, unspecified J90 Pleural effusion, not elsewhere classified Office Visit 05/27/2018 8:00a [facility] Bryanna J44.9 Chronic MD Celio obstructive pulmonary disease, unspecified I50.42 Chronic combined systolic and diastolic hrt fail E87.6 Hypokalemia N63.20 Unspecified lump in the left breast, unspecified quadrant Z95.0 Presence of cardiac pacemaker Z85.72 Personal history of non-Hodgkin lymphomas Office Visit 05/26/2018 1:30p [facility] Jennifer Phelps, I49.5 Sick sinus Of Vice President Of Development LEGAL DOCUMENT SPECIALIST syndrome Z79.899 Other chcf (current) drug therapy I48.0 Paroxysmal atrial fibrillation I25.10 Athscl heart disease of [place] coronary artery w/o ang pctrs C85.90 Non-Hodgkin lymphoma, unspecified, unspecified site Office Visit 05/20/2018 [facility] J44.1 Chronic 11:28a Assoc, Gunnar Shell, obstructive Hospitalists LEGAL DOCUMENT SPECIALIST pulmonary disease w (acute) exacerbation I50.43 Acute on chronic combined systolic and diastolic hrt fail I11.0 Hypertensive heart disease with heart failure I49.5 Sick sinus syndrome J90 Pleural effusion, not elsewhere classified Z95.0 Presence of cardiac pacemaker Office Visit 05/19/2018 3:43p [facility] Milena Rose, I48.0 Paroxysmal atrial Of Vice President Of Development M.D. fibrillation I50.9 Heart failure, unspecified J90 Pleural effusion, not elsewhere classified I25.10 Athscl heart disease of [place] coronary artery w/o ang pctrs I49.5 Sick sinus syndrome Z95.0 Presence of cardiac pacemaker Office Visit 05/19/2018 [facility] Debra I11.0 Hypertensive heart 11:28a Assoc, Gunnar Shell, disease with heart Hospitalists LEGAL DOCUMENT SPECIALIST failure I50.33 Acute on chronic diastolic (congestive) heart failure J44.0 Chronic obstructive pulmon disease w acute lower resp infct Z87.891 Personal history of nicotine dependence Z95.0 Presence of cardiac pacemaker Office Visit 05/18/2018 [facility] Debra I11.0 Hypertensive heart 11:28a Assoc, Gunnra Shell, disease with heart Hospitalists LEGAL DOCUMENT SPECIALIST failure I50.33 Acute on chronic diastolic (congestive) heart failure J44.0 Chronic obstructive pulmon disease w acute lower resp infct J18.9 Pneumonia, unspecified organism Z95.0 Presence of cardiac pacemaker Office Visit 05/17/2018 11:27a [facility] Lorin Burch, I49.5 Sick sinus Assoc,pc LEGAL DOCUMENT SPECIALIST syndrome Hospitalists I11.0 Hypertensive heart disease with heart failure I50.33 Acute on chronic diastolic (congestive) heart failure J44.0 Chronic obstructive pulmon disease w acute lower resp infct J18.9 Pneumonia, unspecified organism Office Visit 05/17/2018 2:15p [facility] Gary Dowling I49.5 Sick sinus Bucky Mcmullen syndrome [facility] I49.5 Sick sinus Assoc,pc LEGAL DOCUMENT SPECIALIST syndrome Hospitalists J44.0 Chronic obstructive pulmon disease w acute lower resp infct J18.9 Pneumonia, unspecified organism I11.0 Hypertensive heart disease with heart failure I50.33 Acute on chronic diastolic (congestive) heart failure Office Visit 05/15/2018 11:27a [facility] Luis I49.5 Sick sinus Assoc,pc EULOGIO Flores syndrome Hospitalists I11.0 Hypertensive heart disease with heart failure I50.33 Acute on chronic diastolic (congestive) heart failure J44.0 Chronic obstructive pulmon disease w acute lower resp infct J18.9 Pneumonia, unspecified organism Office Visit 05/15/2018 12:06p [facility] Pablito Damon49.Sergo Sick sinus Bucky Felix syndrome I50.9 Heart failure, unspecified R94.31 Abnormal electrocardiogram [ECG] [EKG] Office Visit 05/14/2018 12:22p [facility] Pablito Damon49.Sergo Sick sinus Bucky Felix syndrome I48.0 Paroxysmal atrial fibrillation R94.31 Abnormal electrocardiogram [ECG] [EKG] I50.9 Heart failure, unspecified Office Visit 05/14/2018 11:26a [facility] Luis I49.5 Sick sinus Assoc,pc EULOGIO Flores syndrome Hospitalists J44.0 Chronic obstructive pulmon disease w acute lower resp infct J18.9 Pneumonia, unspecified organism I11.0 Hypertensive heart disease with heart failure I50.33 Acute on chronic diastolic (congestive) heart failure Office Visit 05/13/2018 3:55p [facility] Pablito Jean I49.5 Sick sinus Bucky Felix syndrome I25.10 Athscl heart disease of [place] coronary artery w/o ang pctrs I50.9 Heart failure, unspecified R94.31 Abnormal electrocardiogram [ECG] [EKG] J44.1 Chronic obstructive pulmonary disease w (acute) exacerbation Office Visit 05/13/2018 11:26a [facility] Luis I49.5 Sick sinus Assoc,EULOGIO Melissa syndrome Hospitalists J44.0 Chronic obstructive pulmon disease w acute lower resp infct J18.9 Pneumonia, unspecified organism J44.1 Chronic obstructive pulmonary disease w (acute) exacerbation I11.0 Hypertensive heart disease with heart failure I50.33 Acute on chronic diastolic (congestive) heart failure R94.31 Abnormal electrocardiogram [ECG] [EKG] Office Visit 05/12/2018 11:26a [facility] Luis J44.0 Chronic Assoc,EULOGIO Melissa obstructive Hospitalists pulmon disease w acute lower resp infct J18.9 Pneumonia, unspecified organism J44.1 Chronic obstructive pulmonary disease w (acute) exacerbation I11.0 Hypertensive heart disease with heart failure I50.33 Acute on chronic diastolic (congestive) heart failure F41.9 Anxiety disorder, unspecified R41.0 Disorientation, unspecified Office Visit 05/11/2018 11:50a [facility] And Hortencia J44.0 Chronic Sleep Services Of MD Marcial obstructive Vice President Of Development pulmon disease w acute lower resp infct J18.9 Pneumonia, unspecified organism J44.1 Chronic obstructive pulmonary disease w (acute) exacerbation J90 Pleural effusion, not elsewhere classified R53.83 Other fatigue Office Visit 05/11/2018 11:26a [facility] Luis J44.0 Chronic Assoc,EULOGIO Melissa obstructive Hospitalists pulmon disease w acute lower resp infct J18.9 Pneumonia, unspecified organism J44.1 Chronic obstructive pulmonary disease w (acute) exacerbation I11.0 Hypertensive heart disease with heart failure I50.33 Acute on chronic diastolic (congestive) heart failure F41.9 Anxiety disorder, unspecified Office Visit 05/10/2018 [facility] Bibi J44.0 Chronic 11:25a Assoc,sheridan Robles NP obstructive Hospitalists pulmon disease w acute lower resp infct J18.9 Pneumonia, unspecified organism J44.1 Chronic obstructive pulmonary disease w (acute) exacerbation I11.0 Hypertensive heart disease with heart failure I50.33 Acute on chronic diastolic (congestive) heart failure F41.9 Anxiety disorder, unspecified J90 Pleural effusion, not elsewhere classified Office Visit 05/10/2018 11:47a Pulmonology And Hortencia J44.0 Chronic Sleep Services Of MD Marcial obstructive Vice President Of Development pulmon disease w acute lower resp infct J18.9 Pneumonia, unspecified organism J44.1 Chronic obstructive pulmonary disease w (acute) exacerbation Z87.891 Personal history of nicotine dependence J90 Pleural effusion, not elsewhere classified [facility] J44.0 Chronic 11:25a Assocsheridan MD obstructive Hospitalists pulmon disease w acute lower resp infct J18.9 Pneumonia, unspecified organism Office Visit 05/08/2018 11:24a [facility] Denise Asher, R06.02 Shortness of Assoc,pc N.P. breath Hospitalists R53.83 Other fatigue D72.829 Elevated white blood cell count, unspecified Office Visit 05/05/2018 [facility] I50.31 Acute diastolic 11:55a Assocsheridan MD (congestive) Hospitalists heart failure I45.81 Long QT syndrome I48.0 Paroxysmal atrial fibrillation I44.7 Left bundle-branch block, unspecified Office Visit 05/04/2018 [facility] Lucy I50.31 Acute diastolic 11:55a Asssheridan esparza M.D. (congestive) heart Hospitalists failure I48.0 Paroxysmal atrial fibrillation I45.81 Long QT syndrome I44.7 Left bundle-branch block, unspecified Office Visit 05/03/2018 [facility] Lucy I50.31 Acute diastolic 11:54a sheridan Vasquez M.D. (congestive) heart Hospitalists failure I48.0 Paroxysmal atrial fibrillation I45.81 Long QT syndrome I44.7 Left bundle-branch block, unspecified Office Visit 05/03/2018 8:54a [facility] Ten Wooten I50.9 Heart failure, Of Rhys Fuentes M.D. unspecified I48.0 Paroxysmal atrial fibrillation I45.81 Long QT syndrome Office Visit 05/02/2018 [facility] Lucy I50.31 Acute diastolic 11:54a sheridan Vasquez M.D. (congestive) heart Hospitalists failure I48.0 Paroxysmal atrial fibrillation I45.81 Long QT syndrome I44.7 Left bundle-branch block, unspecified Office Visit 04/10/2018 [facility] Lucy I50.33 Acute on chronic 9:18a sheridan Vasquez M.D. diastolic Hospitalists (congestive) heart failure R60.0 Localized edema N63.20 Unspecified lump in the left breast, unspecified quadrant I44.7 Left bundle-branch block, unspecified [facility] I[facility].33 Acute on chronic 9:18a sheridan Vasquez M.D. diastolic Hospitalists (congestive) heart failure R60.0 Localized edema J44.9 Chronic obstructive pulmonary disease, unspecified N63.20 Unspecified lump in the left breast, unspecified quadrant I48.0 Paroxysmal atrial fibrillation I44.7 Left bundle-branch block, unspecified Office Visit 04/08/2018 [facility] I50.33 Acute on chronic 9:17a sheridan Vasquez M.D. diastolic Hospitalists (congestive) heart failure J44.9 Chronic obstructive pulmonary disease, unspecified N63.20 Unspecified lump in the left breast, unspecified quadrant I48.0 Paroxysmal atrial fibrillation I44.7 Left bundle-branch block, unspecified Office Visit 04/07/2018 [facility] I50.33 Acute on chronic 9:17a sheridan Vasquez M.D. diastolic Hospitalists (congestive) heart failure J44.1 Chronic obstructive pulmonary disease w (acute) exacerbation N63.20 Unspecified lump in the left breast, unspecified quadrant I48.0 Paroxysmal atrial fibrillation I44.7 Left bundle-branch block, unspecified Office Visit 04/06/2018 3:37p [facility] Milena Rose, I50.9 Heart failure, Of Rhys Lawler unspecified I27.20 Pulmonary hypertension, unspecified J90 Pleural effusion, not elsewhere classified I48.0 Paroxysmal atrial fibrillation I25.10 Athscl heart disease of [place] coronary artery w/o ang pctrs Z79.01 terminal operator (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 Lucy I50.33 Acute on chronic 9:17a sheridan Vasquez M.D. diastolic Hospitalists (congestive) heart failure R60.0 Localized edema I48.0 Paroxysmal atrial fibrillation I44.7 Left bundle-branch block, unspecified J90 Pleural effusion, not elsewhere classified Office Visit 04/05/2018 [facility] Lucy I50.33 Acute on chronic 9:16a sheridan Vsaquez M.D. diastolic Hospitalists (congestive) heart failure R60.0 Localized edema I48.0 Paroxysmal atrial fibrillation I44.7 Left bundle-branch block, unspecified J90 Pleural effusion, not elsewhere classified Z85.71 Personal history of Hodgkin lymphoma Office Visit 04/04/2018 [facility] Daisha Zamora, I50.9 Heart failure , 9:16a sheridan Vasquez M.D. unspecified Hospitalists R60.0 Localized edema I48.0 Paroxysmal atrial fibrillation I44.7 Left bundle-branch block, unspecified J90 Pleural effusion, not elsewhere classified Office Visit 04/03/2018 [facility] Daisha Zamora, I50.9 Heart failure , 9:16a sheridan Vasquez M.D. unspecified Hospitalists R60.0 Localized edema I89.0 Lymphedema, not elsewhere classified I48.0 Paroxysmal atrial fibrillation I44.7 Left bundle-branch block, unspecified J90 Pleural effusion, not elsewhere classified Office Visit 04/02/2018 [facility] Daisha Zamora, I50.9 Heart failure , 9:16a sheridan Vasquez M.D. unspecified Hospitalists R60.0 Localized edema I89.0 Lymphedema, not elsewhere classified I48.0 Paroxysmal atrial fibrillation I44.7 Left bundle-branch block, unspecified J90 Pleural effusion, not elsewhere classified Office Visit 04/01/2018 9:15a [facility] Jarret Snowden I50.9 Heart failure, Assocsheridan D.O. unspecified Hospitalists I48.0 Paroxysmal atrial fibrillation I44.7 Left bundle-branch block, unspecified R60.0 Localized edema I89.0 Lymphedema, not elsewhere classified J90 Pleural effusion, not elsewhere classified Z87.891 Personal history of nicotine dependence Office Visit 04/01/2018 3:30p [facility] Jennifer Phelps, R60.9 Edema, unspecified LEGAL DOCUMENT SPECIALIST J44.1 Chronic obstructive pulmonary disease w (acute) exacerbation I25.10 Athscl heart disease of [place] coronary artery w/o ang pctrs I48.0 Paroxysmal atrial fibrillation Office Visit 01/17/2018 3:20p [facility] Milena Rose, I48.0 Paroxysmal atrial Of [employer] M.D. fibrillation I44.7 Left bundle-branch block, unspecified I34.0 Nonrheumatic mitral (valve) insufficiency I25.10 Athscl heart disease of [place] coronary artery w/o ang pctrs J44.1 Chronic obstructive pulmonary disease w (acute) exacerbation Office Visit 11/29/2017 [facility] R06.02 Shortness of 10:40a Assoc,EULOGIO Ybarra breath Hospitalists J44.1 Chronic obstructive pulmonary disease w (acute) exacerbation I48.91 Unspecified atrial fibrillation E03.9 Hypothyroidism, unspecified Office Visit 11/28/2017 [facility] R06.02 Shortness of 10:40a Assoc,EULOGIO Ybarra breath Hospitalists J44.1 Chronic obstructive pulmonary disease w (acute) exacerbation I48.91 Unspecified atrial fibrillation E03.9 Hypothyroidism, unspecified Office Visit 11/27/2017 10:39a [facility] Debra R06.02 Shortness of Assoc,sheridan Goff breath Hospitalists LEGAL DOCUMENT SPECIALIST J44.1 Chronic obstructive pulmonary disease w (acute) exacerbation I48.91 Unspecified atrial fibrillation E03.9 Hypothyroidism, unspecified Office Visit 11/26/2017 [facility] Garrison Argueta R06.02 Shortness of 10:37a Assoc,pc Bucky CHAN breath Hospitalists J44.1 Chronic obstructive pulmonary disease w (acute) exacerbation I48.91 Unspecified atrial fibrillation E03.9 Hypothyroidism, unspecified Office Visit 05/04/2017 4:00p [facility] Milena Rose, I48.0 Paroxysmal atrial Of [employer] M.D. fibrillation I44.7 Left bundle-branch block, unspecified I25.10 Athscl heart disease of [place] coronary artery w/o ang pctrs E78.00 Pure hypercholesterolemia, unspecified R73.9 Hyperglycemia, unspecified Office Visit 10/20/2016 3:30p [facility] Jovanna Ga, I48.0 Paroxysmal atrial PA fibrillation I44.7 Left bundle-branch block, unspecified I34.0 Nonrheumatic mitral (valve) insufficiency Office Visit 05/05/2016 4:00p [facility] Milena Rose, I48.0 Paroxysmal atrial Of [employer] M.D. fibrillation I44.7 Left bundle-branch block, unspecified I34.0 Nonrheumatic mitral (valve) insufficiency Office Visit 08/26/2015 3:45p [facility] Milena Rose, I48.0 Paroxysmal atrial Of [employer] Development M.D. fibrillation I34.0 Nonrheumatic mitral (valve) insufficiency I44.7 Left bundle-branch block, unspecified Office Visit 12/31/2014 3:30p [facility] Jovanna Ga, 427.31 Atrial Of [employer] PA Fibrillation 424.0 Mitral Valve Disorder 244.9 Hypothyroidism Other Unspec 397.0 Tricuspid Valve Disease 424.1 Aortic Valve Disorder Office Visit 05/28/2014 3:00p [facility] Jovanna Ga, [place] 424.0 Mitral Valve Of [employer] Disorder 427.31 Atrial Fibrillation 401.9 Hypertension Unspec 424.1 Aortic Valve Disorder Office Visit 10/23/2013 3:15p [facility] Milena Rose 427.31 Atrial Cardiology Of M.D. Fibrillation [employer] 427.32 Atrial Flutter 794.31 Electrocardiogram (ECG) (EKG) Abnormal 424.0 Mitral Valve Disorder Office Visit 06/19/2013 2:00p [facility] Milena Rose 427.31 Atrial Cardiology Of M.D. Fibrillation [employer] Development 427.32 Atrial Flutter 401.0 Hypertension Malignant Office Visit 06/05/2013 8:43a [facility] [place] 427.32 Atrial Flutter Of Rhys Fuentes M.D. Office Visit 06/04/2013 2:21p [facility] Antonino Garcia 427.32 Atrial Flutter Of Rhys Miller M.D., [facility], [facility] Office Visit 06/03/2013 1:49p [facility] Antonino Garcia 427.32 Atrial Flutter Of Rhys Miller M.D., [facility], [facility] Office Visit 06/02/2013 2:52p [facility] Milena Rose 427.31 Atrial Of [employer] M.D. Fibrillation Office Visit 06/01/2013 1:36p [facility] Milena Rose 427.31 Atrial Of [employer] M.D. Fibrillation Office Visit 05/16/2013 3:30p [facility] Nurse Visit 427.32 Atrial Flutter Of [employer] IC Office Visit 05/09/2013 3:45p [facility] Milena Rose 427.32 Atrial Flutter Of [employer] President [employer] Development M.D. 424.0 Mitral Valve Disorder Office Visit 04/03/2013 11:15a [facility] Milena Rose 427.32 Atrial Flutter Of [employer] President [employer] Development M.D. 427.31 Atrial Fibrillation 511.9 Pleurisy Effusion Unspec 782.3 Edema Office Visit 03/23/2013 [facility] 682.3 Cellulitis & 5:35p Assocpc Bucky CHAN Abscess Upper Hospitalists Arm & Forearm 288.8 White Blood Cell Disease Other 427.31 Atrial Fibrillation 511.9 Pleurisy Effusion Unspec Office Visit 03/22/2013 [facility] 682.3 Cellulitis & 5:35p Assoc,pc II MClay Abscess Upper Hospitalists Arm & Forearm 427.31 Atrial Fibrillation 244.9 Hypothyroidism Other Unspec 288.8 White Blood Cell Disease Other Office Visit 03/21/2013 [facility] 682.3 Cellulitis & 5:34p Assoc,pc II MJudiDJudi Abscess Upper Hospitalists Arm & Forearm 427.31 Atrial Fibrillation 244.9 Hypothyroidism Other Unspec 288.8 White Blood Cell Disease Other Office Visit 03/20/2013 [facility] 682.3 Cellulitis & 5:34p Assoc,pc II MJudiDJudi Abscess Upper Hospitalists Arm & Forearm 427.31 Atrial Fibrillation 244.9 Hypothyroidism Other Unspec 288.8 White Blood Cell Disease Other Office Visit 03/19/2013 [facility] 682.3 Cellulitis & 5:33p Assoc,pc II, MJudiD. Abscess Upper Hospitalists Arm & Forearm 427.31 Atrial Fibrillation 244.9 Hypothyroidism Other Unspec 288.8 White Blood Cell Disease Other Office Visit 03/18/2013 [facility] 682.3 Cellulitis & 5:32p Assoc,pc II, M.D. Abscess Upper Hospitalists Arm & Forearm 427.31 Atrial Fibrillation 244.9 Hypothyroidism Other Unspec 288.8 White Blood Cell Disease Other Office Visit 04/26/2012 [facility] Milena Milton, 427.31 Atrial Fibrillation 2:45p Of Rhys Lawler Office Visit 12/27/2009 [facility] Uzair 244.9 Hypothyroidism 1:30a sheridan Vasquez M.D. Other Unspec Hospitalists Office Visit 12/26/2009 [facility] Sahzene Yavuz, 511.9 Pleurisy Effusion 1:15a sheridan Vasquez M.D. Unspec Hospitalists Office Visit 12/25/2009 [facility] Daisha 511.9 Pleurisy Effusion 1:15a sheridan Vasquez M.D. Unspec Hospitalists Plan of Treatment Future Appointment(s):01/09/2019 1:00 pm - Jennifer Phelps NP at [facility]12/12/2018 11:30 am - Ica Pacer Schedule at [facility] 6:40 am - Remote Device Checks at [facility]12/01/2018 - Kacy Cain MDB37.9 Candidiasis, [id number] Malignant neoplasm of unspecified site of left female breastFollow up:As needed
[2018-12-26] MEDS ORDERED: Rivaroxaban TAB(*) 20 MG TAB PO SCH (20:30)
[2018-12-26] MEDS: Polyethylene Glycol 3350* 17 GM PACKET PO PRN (20:31)
[2018-12-26] MEDS: oxyCODONE/Acetamin 5/325 MG* TAB PO PRN (20:31)
[2018-12-26] MEDS: Magnesium Oxide TAB* 400 MG PO SCH (20:47)
[2018-12-26] MEDS: clonazePAM TAB(*) 1 MG PO SCH ×2 (20:47→22:43)
[2018-12-26] MEDS: Metoprolol Tartrate TAB* 25 MG PO SCH (20:47)
[2018-12-26] MEDS ORDERED: Dofetilide CAP* 125 MCG PO SCH (21:00)
[2018-12-26] MEDS: Dofetilide CAP* 125 MCG PO SCH (22:43)
[2018-12-26] MEDS: Magic M W2 Ben/Maal/Nyst/Lido* 240 ML MOUTHWASH (alt formulation) SWISH SPIT SCH (22:44)
[2018-12-27] MEDS: oxyCODONE/Acetamin 5/325 MG* TAB PO PRN ×3 (00:39→14:51)
[2018-12-27] MEDS ORDERED: Etomidate* 2 MG/ML 20 ML VIAL (40 MG) ONE (03:05)
[2018-12-27] MEDS: Levothyroxine TAB* 75 MCG TAB PO SCH (05:58)
[2018-12-27 07:52] LABS: Hematocrit 40 % (35-47); Hemoglobin 13.7 g/dL (12.0-16.0); Mean Corpuscular HGB Conc 34 g/dL (31-36); Mean Corpuscular Hemoglobin 30 pg (27-31); Mean Corpuscular Volume 87 fL (80-97); Mean Platelet Volume 9.5 fL (7.4-10.4); Platelet Count 132 10^3/uL (150-450); Red Blood Count 4.62 10^6 /uL (3.70-4.87); Red Cell Distribution Width 14 % (10-15); White Blood Count 0.4 10^3/uL (3.5-10.8)
[2018-12-27 08:10] LABS: Albumin 3.6 g/dL (3.2-5.2); Albumin/Globulin Ratio 1.1 (1-3); Calcium 8.7 mg/dL (8.6-10.3); EGFR African American 94.7 (>60); EGFR Non-African American 78.3 (>60); Globulin 3.2 g/dL (2-4); Total Bilirubin 1.5 mg/dL (0.2-1.0); Total Protein 6.8 g/dL (6.4-8.9)
[2018-12-27] MEDS: Magnesium Oxide TAB* 400 MG PO SCH ×3 (08:39→12:37)
[2018-12-27] MEDS: Potassium Chlor TAB* 20 MEQ TAB.ER PO SCH ×2 (08:39→08:45)
[2018-12-27] MEDS: Torsemide TAB 10 MG PO SCH ×2 (08:39→08:45)
[2018-12-27] MEDS: Famotidine TAB* 20 MG PO SCH ×2 (08:39→08:45)
[2018-12-27] MEDS: Ascorbic Acid TAB* 500 MG PO SCH ×3 (08:39→12:37)
[2018-12-27] MEDS: Polyethylene Glycol 3350* 17 GM PACKET PO PRN (08:39)
[2018-12-27] MEDS: Metoprolol Tartrate TAB* 25 MG PO SCH (08:40)
[2018-12-27] MEDS ORDERED: Torsemide TAB 10 MG PO SCH ×2 (09:00→12:30)
[2018-12-27] MEDS: Magic M W2 Ben/Maal/Nyst/Lido* 240 ML MOUTHWASH (alt formulation) SWISH SPIT SCH ×3 (09:23→17:25)
--- NOTE | 2018-12-27 09:43 | PN ---
Progress Note - Progress Note Date of Service: 12/27/18 SOAP: Subjective: [Admitted yesterday for hyponatremia likely secondary to fluid overload after holding her diuretics following her 1st cycle of adjuvant TC chemotherapy. She had gained several pounds and complaining of a cough, but relatively asx at the time. Case discussed with cardiology at the time of admission and decision made to initiate diuresis. She has a negative fluid balance of 1800 ml since admission. Per nursing staff patient was oriented only to self earlier this am. Upon interview patient reports she is ok. Slightly fatigued. Oriented to self , place, time and situation but somewhat slow to respond. No c/o dyspnea. Abd is feeling bloated, no BM in several days.] Objective: [ Laboratory Results - last 24 hr 12/27/18 12/27/18 07:21 07:21 WBC 0.4 L RBC 4.62 Hgb 13.7 Hct 40 MCV 87 MCH 30 MCHC 34 RDW 14 Plt Count 132 L MPV 9.5 Neut % (Auto) Not Reportable Lymph % (Auto) Not Reportable [place] % (Auto) Not Reportable Eos % (Auto) Not Reportable Baso % (Auto) Not Reportable Absolute Neuts (auto) Not Reportable Absolute Lymphs (auto) Not Reportable Absolute Monos (auto) Not Reportable Absolute Eos (auto) Not Reportable Absolute Basos (auto) Not Reportable Absolute Nucleated RBC Not Reportable Neutrophils % 4.0 Lymphocytes % 45.0 Monocytes % 51.0 Nucleated RBC % Not Reportable Abs Neuts (Manual) 0.0 L Abs Lymphs (Manual) 0.2 L Abs Monocytes (Manual) 0.2 Normal RBC Morphology Normal Macrocytosis Sodium 112 L* Potassium 4.0 Chloride 74 L Carbon Dioxide 30 Anion Gap 8 BUN 18 Creatinine 0.75 Est GFR ( Amer) 94.7 Est GFR (Non-Af Amer) 78.3 BUN/Creatinine Ratio 24.0 H Glucose 144 H Calcium 8.7 Total Bilirubin 1.50 H AST 26 ALT 31 Alkaline Phosphatase 78 Total Protein 6.8 Albumin 3.6 Globulin 3.2 Albumin/Globulin Ratio 1.1 Albuterol (Ventolin Hfa Inhaler*) 2 puff INH Q6H PRN PRN Reason: SOB/WHEEZING Ascorbic Acid (Vitamin C Tab*) 1,000 mg PO QAM [facility] Last Admin: 12/27/18 08:44 Dose: Not Given Clonazepam (Klonopin Tab(*)) 1 mg PO BEDTIME [facility] Last Admin: 12/26/18 22:43 Dose: 1 mg Dofetilide (Tikosyn Cap*) 125 mcg PO 0930,1430,2230 [facility] Last Admin: 12/26/18 22:43 Dose: 125 mcg Famotidine (Pepcid Tab*) 20 mg PO QAM [facility] Last Admin: 12/27/18 08:45 Dose: Not Given Sodium Chloride (Hypertonic) (Hypertonic Sod Chloride 3%*) 500 mls @ 32.5 mls/ hr IV ONCE ONE; Protocol Stop: 12/28/18 00:44 Levothyroxine Sodium (Synthroid Tab*) 75 mcg PO QAM@0600 [facility] Last Admin: 12/27/18 05:58 Dose: 75 mcg Magnesium Oxide (Magox 400 Tab*) 400 mg PO BID [facility] Last Admin: 12/27/18 08:44 Dose: Not Given Metoprolol Tartrate (Lopressor Tab*) 25 mg PO BID [facility] Last Admin: 12/27/18 08:40 Dose: Not Given Multi-Ingredient Mouthwash/Gargle (Magic M W2 Dong/Maal/Nyst/Lido*) 5 ml SWISH SPIT QID [facility] Last Admin: 12/27/18 09:23 Dose: 5 ml Ondansetron HCl (Zofran Odt Tab*) 4 mg SL Q6H PRN PRN Reason: NAUSEA/VOMITING Last Admin: 12/26/18 20:50 Dose: 4 mg Ondansetron HCl (Zofran Inj*) 4 mg IV Q4H PRN PRN Reason: NAUSEA Oxycodone/Acetaminophen (Percocet 5/325 Tab*) 1 tab PO Q4H PRN PRN Reason: PAIN Last Admin: 12/27/18 05:58 Dose: 1 tab Polyethylene Glycol/Electrolytes (Miralax*) 17 gm PO DAILY PRN PRN Reason: CONSTIPATION Last Admin: 12/27/18 08:39 Dose: 17 gm Potassium Chloride (Klor Con Er Tab*) 20 meq PO QAM [facility] Last Admin: 12/27/18 08:45 Dose: Not Given Torsemide (Torsemide) 20 mg PO DAILY [facility] Last Admin: 12/27/18 08:45 Dose: Not Given Vital Signs: Temp Pulse Resp BP Pulse Ox 97.2 F 70 16 86/41 93 12/27/18 08:00 12/27/18 08:00 12/27/18 08:39 12/27/18 08:00 12/27/18 08:00 Exam: Gen: 63 yo female who appears older than stated age and lethargic, but in NAD HEENT: dry MM, mild thrush CV: RRR, 3/6 systolic murmur Resp: somewhat limited exam, but no adventitious sounds Abd: quiet BS, soft but mildly distended and nonTTP Ext: trace LE edema, LUE edema (chronic) Neuro: alert and oriented, nonfocal, slow to answer questions] Assessment: [63 yo female with afib on tikosyn as well as COPD and pulm HTN with L multifocal ER/NC positive, HER2 negative BCA s/p mastectomy and C1 aduvant TC chemotherapy admitted with hyponatremia likely secondary to fluid overload.] Plan: [1. Hyponatremia - likely secondary to fluid overload after holding diuretic - effectively diuressed overnight, but unfortunately sodium fell from 116 to 112 mmol/L with increased lethargy - hold diuretic this am - transfer to ICU for hypertonic saline with goal of increasing sodium by 0.5 mmol/L/h (calculated starting rate at 32.5 ml/h) - BMP q 4h - cont 1.5L fluid restriction - CXR this am to r/o pulm pathology 2. Breast CA - C1D7 adjuvant TC and s/p L mastectomy - neutropenic, monitor for fever, but no signs of infection at this time 3. Pulm HTN/COPD - appears euvolemic this am - last echo from 05/2018 shows PA pressures of 48 mmHg, LV/RV systolic fxn WNL at that time 4. L arm lymphedema (chronic) 5. R brachioplexopathy 6. Afib - currently sinus - cont Tikosyn - EKG pend to eval QTC - cont telemetry monitoring - cont Xarelto 6. DVT prophylaxis - Xarelto Dispo: transfer to ICU for hypertonic saline ]
[2018-12-27] MEDS ORDERED: Polyethylene Glycol 3350* 17 GM PACKET PO SCH ×2 (10:00→12:30)
[2018-12-27] MEDS ORDERED: Rivaroxaban TAB(*) 20 MG TAB PO SCH (10:00)
[2018-12-27] MEDS ORDERED: Sodium Chloride 3% HYPERTONIC* 500 ML IV ONE (11:00)
[2018-12-27 11:27] LABS: TSH (Thyroid Stimulating Horm) 4.7 mcIU/mL (0.34-5.60)
[2018-12-27] MEDS: Dofetilide CAP* 125 MCG PO SCH ×2 (12:28→13:14)
[2018-12-27] MEDS ORDERED: Famotidine TAB* 20 MG PO SCH (12:30)
[2018-12-27] MEDS ORDERED: Potassium Chlor TAB* 20 MEQ TAB.ER PO SCH (12:30)
[2018-12-27] MEDS ORDERED: Metoprolol Tartrate TAB* 25 MG PO SCH (12:30)
[2018-12-27 14:57] LABS: BUN/Creatinine Ratio 27.4 (8-20); EGFR Non-African American 97.5 (>60); Potassium 3.7 mmol/L (3.5-5.0)
[2018-12-27] MEDS: Rivaroxaban TAB(*) 20 MG TAB PO SCH (17:26)
[2018-12-27 18:57] LABS: BUN/Creatinine Ratio 23.2 (8-20); Blood Urea Nitrogen 16 mg/dL (6-24); CO2 Carbon Dioxide 28 mmol/L (22-32); Calcium 8.3 mg/dL (8.6-10.3); Chloride 77 mmol/L (101-111); EGFR African American 104.3 (>60); EGFR Non-African American 86.2 (>60); Glucose 179 mg/dL (70-100)
[2018-12-27 19:01] LABS: Anion Gap 7 mmol/L (2-11); Sodium 112 mmol/L (135-145)
[2018-12-27] MEDS ORDERED: HYPERTONIC IV ONE (19:30)
[2018-12-27] MEDS ORDERED: SODIUM CHLORIDE 3% IV ONE (19:30)
--- NOTE | 2018-12-27 19:36 | PN ---
Hospitalist Progress Note Date of Service: 12/27/18 63 yo F admitted for hypERvolemic hypOnatremia, started on 3% earlier in day and over corrected to 121, now repeat sodium back at [address] Constantino Pt asymptomatic, chronic hypOnatremia Will restart Hypertonic 3% Saline @ 15cc/hr for an asymptomatic with severe hyponatremia (serum sodium <120 mEq/L), with goal to increase by 6meQ over 24 hours, correct at rate of 0.5, without bolus given no symptoms. Pt with low MAP, no change in MS, this will inhibit ability to diurese while giving fluids, will keep on PO toresmide, fluid restriction and no initation of pressors unless change in MS or MAP <50 Discussed case with oncology
[2018-12-27] MEDS ORDERED: Senna TAB PO SCH (21:00)
[2018-12-27] MEDS ORDERED: Haloperidol TAB* 0.5 MG PO PRN (21:13)
[2018-12-27 22:38] LABS: Calcium 8.4 mg/dL (8.6-10.3); Potassium 4.6 mmol/L (3.5-5.0)
[2018-12-27 22:44] LABS: BUN/Creatinine Ratio 22.1 (8-20); EGFR African American 91.9 (>60)
[2018-12-27] MEDS ORDERED: Lorazepam PYXIS KEY ONE (22:53)
[2018-12-27] MEDS ORDERED: LORazepam INJ* 2 MG/ML 1 ML VIAL ONE (22:54)
[2018-12-27] MEDS ORDERED: Cefepime 2 GM in Dextrose(*) 2 GM/50 ML BAG IV SCH (23:00)
[2018-12-27] MEDS ORDERED: LORazepam INJ* 2 MG/ML 1 ML VIAL IV PUSH ONE ×2 (23:32→23:48)
[2018-12-27] MEDS ORDERED: Lorazepam PYXIS KEY PRN ×2 (23:32→23:48)
[2018-12-27] MEDS ORDERED: Meropenem 1 GM PREMIX(*) 1 GM/50 ML BAG IV SCH (23:45)
[2018-12-28] MEDS ORDERED: LORazepam INJ* 2 MG/ML 1 ML VIAL IV PUSH ONE (00:04)
[2018-12-28] MEDS: Magnesium Oxide TAB* 400 MG PO SCH ×3 (00:04→21:48)
[2018-12-28] MEDS ORDERED: Lorazepam PYXIS KEY PRN (00:04)
[2018-12-28] MEDS: Magic M W2 Ben/Maal/Nyst/Lido* 240 ML MOUTHWASH (alt formulation) SWISH SPIT SCH (00:04)
[2018-12-28] MEDS ORDERED: Haloperidol INJ IV/IM* 5 MG/ML AMP IV SLOW PU ONE (00:28)
[2018-12-28] MEDS ORDERED: Magnesium Sulfate 1 GM IV* 1 GM/100 ML BAG IV ONE (00:30)
[2018-12-28] MEDS: Dofetilide CAP* 125 MCG PO SCH ×4 (00:47→22:45)
[2018-12-28] MEDS: Cefepime* 2 GM in Dextrose 50mL Q12H (Duplex) IV SCH ×3 (01:19→21:48)
[2018-12-28 01:54] LABS: BUN/Creatinine Ratio 20.4 (8-20); Calcium 8.1 mg/dL (8.6-10.3); EGFR African American 73.9 (>60); EGFR Non-African American 61.1 (>60); Potassium 4.3 mmol/L (3.5-5.0)
[2018-12-28] MEDS ORDERED: Furosemide IV* 10 MG/ML 2 ML VIAL (20 MG) IV ONE (02:27)
[2018-12-28] MEDS ORDERED: Haloperidol INJ IV/IM* 5 MG/ML AMP IV SLOW PU PRN (02:28)
[2018-12-28] MEDS ORDERED: Magnesium Sulfate 2 GM IV* 2 GM/50 ML BAG ONE (03:07)
[2018-12-28] MEDS ORDERED: Magnesium Sulfate 2 GM IV* 50 ML BAG ONE (03:10)
[2018-12-28] MEDS ORDERED: Succinylcholine* 20 MG/ML 10 ML VIAL ONE (03:10)
[2018-12-28] MEDS ORDERED: Propofol* 100 ML ONE (03:23)
[2018-12-28] MEDS ORDERED: Chlorhexidine MOUTHWASH 0.12%* 15 ML UDC TOPICAL SCH (03:30)
[2018-12-28] MEDS ORDERED: Vancomycin(*) 1,000 MG in NS 0.9% 250 ML* 250 ML IVPB ONE (03:30)
[2018-12-28] MEDS ORDERED: Magnesium Sulfate 2 GM IV* 2 GM/50 ML BAG IVPB ONE (03:36)
[2018-12-28] MEDS: Propofol* 100 ML IV SCH ×4 (03:37→20:26)
[2018-12-28] MEDS: Norepinephrine 16MCG/ML IVPRE* 4,000 MCG/250 ML BAG IV SCH ×5 (03:44→21:31)
[2018-12-28 03:51] LABS: Urine Appearance Cloudy; Urine Bacteria Absent (Absent); Urine Bilirubin Negative (Negative); Urine Blood 3+ (Negative); Urine Color Amber; Urine Glucose Negative (Negative); Urine Ketones Negative (Negative); Urine Nitrite Negative (Negative); Urine Protein 2+(100 mg/dL) (Negative); Urine Red Blood Cell 3+(>10/hpf) (Absent); Urine Specific Gravity 1.013 (1.010-1.030); Urine Squamous Epithelial Cell Present (Absent); Urine Urobilinogen Negative (Negative); Urine White Blood Cell 3+(>20/hpf) (Absent)
[2018-12-28] MEDS: Chlorhexidine MOUTHWASH 0.12%* 15 ML UDC TOPICAL SCH ×6 (04:41→23:46)
[2018-12-28] MEDS: Acetaminophen ADULT LIQ* 650 MG/20.3 ML UDC PO SCH ×4 (05:08→22:45)
--- NOTE | 2018-12-28 05:28 | PN ---
Subjective Date of Service: 12/28/18 Objective Active Medications: Acetaminophen (Tylenol Adult Liq*) 650 mg PO Q6H ÁLVARO Albuterol (Ventolin Hfa Inhaler*) 2 puff INH Q6H PRN PRN Reason: SOB/WHEEZING Ascorbic Acid (Vitamin C Tab*) 1,000 mg PO DAILY [facility] Last Admin: 12/27/18 12:37 Dose: 1,000 mg Chlorhexidine Gluconate (Peridex Mouth Wash 0.12%*) 15 ml TOPICAL Q4H ÁLVARO Last Admin: 12/28/18 04:41 Dose: 15 ml Dofetilide (Tikosyn Cap*) 125 mcg PO 0930,1430,2230 [facility] Last Admin: 12/28/18 00:47 Dose: 125 mcg Famotidine (Pepcid Tab*) 20 mg PO DAILY [facility] Last Admin: 12/27/18 12:37 Dose: 20 mg Haloperidol Lactate (Haldol Inj Iv/Im*) 0.5 mg IV SLOW PU Q6H PRN PRN Reason: AGITATION Last Admin: 12/28/18 02:30 Dose: 0.5 mg Sodium Chloride (Hypertonic) (Hypertonic Sod Chloride 3%*) 180 mls @ 15 mls/hr IV ONCE ONE; Protocol Stop: 12/28/18 07:29 Last Admin: 12/27/18 19:52 Dose: 15 mls/hr Cefepime HCl (Maxipime 2 Gm In Dextrose Duplex (*)) 2 gm in 50 mls @ 100 mls/ hr IV Q8H ÁLVARO Last Admin: 12/28/18 01:19 Dose: 100 mls/hr Norepinephrine Bitartrate (Levophed 16 Mcg/Ml Premix Bag*) 4,000 mcg in 250 mls @ 18.75 mls/hr IV .INITIAL RATE ÁLVARO; Protocol Last Admin: 12/28/18 03:44 Dose: 18.75 mls/hr Propofol (Diprivan*) 100 mls @ 0 mls/hr IV .(Initial Rate) ÁLVARO; Protocol Last Admin: 12/28/18 03:37 Dose: 6.7 mls/hr Levothyroxine Sodium (Synthroid Tab*) 75 mcg PO QAM@0600 [facility] Last Admin: 12/27/18 05:58 Dose: 75 mcg Magnesium Oxide (Magox 400 Tab*) 400 mg PO Q12HR ÁLVARO Last Admin: 12/28/18 00:04 Dose: Not Given Miscellaneous (Ativan Pyxis Allen) 1 ea N/A .ATIVAN IV ALLEN PRN PRN Reason: PYXIS ALLEN Oxycodone/Acetaminophen (Percocet 5/325 Tab*) 1 tab PO Q4H PRN PRN Reason: PAIN Last Admin: 12/27/18 14:51 Dose: 1 tab Polyethylene Glycol/Electrolytes (Miralax*) 17 gm PO QAM [facility] Last Admin: 12/27/18 12:36 Dose: 17 gm Potassium Chloride (Klor Con Er Tab*) 20 meq PO DAILY [facility] Last Admin: 12/27/18 12:36 Dose: 20 meq Rivaroxaban (Xarelto(*)) 20 mg PO 1700 [facility] Last Admin: 12/27/18 17:26 Dose: 20 mg Senna (Senokot Tab*) 1 tab PO BID [facility] Last Admin: 12/28/18 00:04 Dose: Not Given Torsemide (Torsemide) 20 mg PO QAM [facility] Last Admin: 12/27/18 13:13 Dose: 20 mg Vital Signs - 8 hr 12/27/18 12/27/18 12/27/18 21:24 21:27 21:30 Temperature 100.9 F 101.1 F 101.5 F Pulse Rate 77 75 77 Respiratory 31 31 29 Rate Blood Pressure 124/64 122/60 (mmHg) O2 Sat by Pulse 94 92 94 Oximetry 12/27/18 12/27/18 12/27/18 21:40 21:45 22:00 Temperature 101.8 F 101.1 F 102.0 F Pulse Rate 78 80 78 Respiratory 17 14 27 Rate Blood Pressure 128/68 115/57 116/60 (mmHg) O2 Sat by Pulse 94 95 95 Oximetry 12/27/18 12/27/18 12/27/18 22:15 22:30 22:45 Temperature 102.2 F 100.9 F 101.5 F Pulse Rate 74 76 82 Respiratory 29 29 31 Rate Blood Pressure 116/62 107/43 121/60 (mmHg) O2 Sat by Pulse 95 93 96 Oximetry 12/27/18 12/27/18 12/27/18 23:00 23:15 23:50 Temperature 101.5 F 101.3 F 101.1 F Pulse Rate 81 82 81 Respiratory 22 22 21 Rate Blood Pressure 102/65 119/61 117/60 (mmHg) O2 Sat by Pulse 91 89 93 Oximetry 12/28/18 12/28/18 12/28/18 00:00 00:12 00:15 Temperature 101.3 F 101.3 F Pulse Rate 88 86 Respiratory 25 21 26 Rate Blood Pressure 139/70 (mmHg) O2 Sat by Pulse 94 91 Oximetry 12/28/18 12/28/18 12/28/18 00:31 00:37 00:45 Temperature 101.3 F 101.3 F 101.3 F Pulse Rate 91 93 92 Respiratory 27 26 25 Rate Blood Pressure 179/81 179/81 146/66 (mmHg) O2 Sat by Pulse 95 92 95 Oximetry 12/28/18 12/28/18 12/28/18 01:00 01:16 01:24 Temperature 101.3 F 101.5 F 101.1 F Pulse Rate 79 76 75 Respiratory 24 23 26 Rate Blood Pressure 83/43 96/40 107/50 (mmHg) O2 Sat by Pulse 94 89 95 Oximetry 12/28/18 12/28/18 12/28/18 01:30 01:45 01:48 Temperature 101.5 F 101.7 F 101.7 F Pulse Rate 75 73 73 Respiratory 29 25 21 Rate Blood Pressure 89/38 68/38 83/44 (mmHg) O2 Sat by Pulse 92 93 97 Oximetry 12/28/18 12/28/18 12/28/18 01:51 02:00 02:01 Temperature 101.7 F 101.7 F 101.8 F Pulse Rate 71 70 70 Respiratory 20 25 26 Rate Blood Pressure 86/43 91/52 (mmHg) O2 Sat by Pulse 95 96 98 Oximetry 12/28/18 12/28/18 12/28/18 02:15 03:00 03:12 Temperature 101.8 F 103.3 F Pulse Rate 73 98 69 Respiratory 29 34 33 Rate Blood Pressure 96/57 117/60 (mmHg) O2 Sat by Pulse 100 95 96 Oximetry 12/28/18 12/28/18 12/28/18 03:16 03:30 03:40 Temperature Pulse Rate 69 70 73 Respiratory 15 Rate Blood Pressure 100/68 100/51 100/50 (mmHg) O2 Sat by Pulse 100 100 100 Oximetry 12/28/18 12/28/18 12/28/18 03:45 03:57 04:00 Temperature Pulse Rate 75 74 74 Respiratory 19 Rate Blood Pressure 96/48 92/45 79/45 (mmHg) O2 Sat by Pulse 100 100 100 Oximetry 12/28/18 12/28/18 12/28/18 04:10 04:15 04:16 Temperature Pulse Rate 80 76 75 Respiratory Rate Blood Pressure 115/50 77/44 73/38 (mmHg) O2 Sat by Pulse 100 100 100 Oximetry 12/28/18 12/28/18 12/28/18 04:27 04:45 05:00 Temperature 103.3 F 102.9 F 102.9 F Pulse Rate 79 79 83 Respiratory 18 Rate Blood Pressure 91/43 98/57 109/58 (mmHg) O2 Sat by Pulse 100 100 99 Oximetry 12/28/18 05:01 Temperature 102.7 F Pulse Rate 82 Respiratory Rate Blood Pressure (mmHg) O2 Sat by Pulse 100 Oximetry Oxygen Devices in Use Now: Mechanical Ventilator Result Diagrams: 12/27/18 07:21 12/28/18 01:15 Assess/Plan/Problems-Billing Assessment:
[2018-12-28 05:49] LABS: Hematocrit 38 % (35-47); Hemoglobin 12.9 g/dL (12.0-16.0); Mean Corpuscular HGB Conc 34 g/dL (31-36); Mean Corpuscular Hemoglobin 30 pg (27-31); Mean Corpuscular Volume 87 fL (80-97); Red Blood Count 4.32 10^6 /uL (3.70-4.87); Red Cell Distribution Width 14 % (10-15); White Blood Count 1.5 10^3/uL (3.5-10.8)
[2018-12-28 05:52] LABS: EGFR African American 64.3 (>60); EGFR Non-African American 53.1 (>60)
--- NOTE | 2018-12-28 05:58 | PN ---
Hospitalist Progress Note Date of Service: 12/28/18 Overnight Cross Cover Note 63 yo F with PMH distant hx Hodgkins Lymphoma c/b recurrence, L lymphedema, CAD , Atrial Fibirllation on Tikosyn, COPD, pulm HTN, recently dx with breast Cancer s/p recent mastectomy on chemotherapy who was admitted for symptomatic hyponatremia in the setting of holding her diuretics during chemotherapy She was transferred to the ICU for hypertonic saline Overnight pt has decompensated, namely: 1) low MAPs accompanied by fever to 100.9, c/w neutropenic fever -Warren cultured, placed TLC in L femoral, Lacitc + -Started Cefipime for neutropenic fever -Low dose Levophed initiated 2)Pt with acute onset wide based irregular tachycardia seeming atrial fibrillation with RVR and abberancy? > VTACH given rate 100-115, given runs of mag x 2 -At this time pt was acutely decompensation from an airway standpoint, became acutely dypsneic, coughing and unable to clear, poor mental status which had been declning over a period of an hour to two hours -maintaing sats at the time but intubated for airway protection and mental status -Intubation was done to protect airway 3) Persistent fever to 103, added vancomycin PE Ill appearing woman, oriented to self, drowsy PEERLA, EOMI, dry MM irreg irreg no MRG Diffuse crackles in blt LE UE lymphedema Belly soft NT no LE edema, 2+ pulses Imaging CXR: 1) R layering effusion, possibly worsening infiltrate on R 2) s/p ET tube with tip at Gladis KUB: Femoral line in place Her current course by system: Neutropenic Fever Septic Shock, pulm source? HypOnatrema Delerium, intubated for airway protection AFib Neuro: --Sedated on Propofol DWIGHT Goal -1-+1 --Prior to intubation sig delerium related to sepsis, requiring small doses of Ativan (is on home clonazepam) and Haldol 0.5mg small doses given QTC on Tikosyn CV: --Rhytym: A fib, decompensated to afib with abberancy, Tach? during acute hypoxia, continue Tikosyn, currently in fib On AC with Xarelto --Pump: Shock, septic, continue Levophed Last Echo 05/2018 PA pressures of 48 mmHg, LV/RV systolic fxn WNL at that time, repeat echo ordered --Ischemia: Trending troponins Pulm: Intubated for airway protection --COPD at baseline, no wheezing on exam --Concern for PNA on CXR, thick secretions on intubation, known recurrent R pleural effusion, consider thora if indicated --Treating with Cefipime, Vanco, Flagyl (x 1 dose) GI: Diarrhea x 1, pending C Diff Endo: Hyponatremia 2/2 to HyPERvolemia, on hypertonic saline gtt w/out bolus at 15cc/ hr for correct 6meQ in 24 hours starting at 21:00 12/27 --Q 4 hours BMP --Diuresis 40mg IV x 1, holding further Hypothyroid --Home synthroid ID: Sepsis, limited by hypervolemia for fluid bolus, trend lactic --Pancultured, covered broadly Heme/ONC: Neutropenia and thrombocytopenia: Defer to onc Breast Ca MSK -L arm lymphedema (chronic) -R brachioplexopathy DVT PPX-Xarelto PPX: Chlorhex/Famotidine Lines: L femoral TLC Intubated on AC Volume 450/16/5/100%(weaning), ABG pending Arterial line none Full code, updated brother Foreign during intubation and answered all questions
[2018-12-28 06:02] LABS: Troponin I 0.02 ng/mL (<0.04)
[2018-12-28] MEDS ORDERED: SODIUM CHLORIDE 3% IV ONE (06:04)
[2018-12-28] MEDS ORDERED: HYPERTONIC IV ONE (06:04)
[2018-12-28] MEDS: Levothyroxine TAB* 75 MCG TAB PO SCH (06:15)
[2018-12-28] MEDS: metroNIDAZOLE IV 500 MG/100ML* 500 MG/100 ML BAG IVPB SCH ×3 (06:26→14:12)
[2018-12-28 06:35] LABS: ABS Monocytes 0.2 10^3/ul (0-0.8); ABS Neutrophils 1.2 10^3/ul (1.5-7.7); Eosinophil % 0.6 %; Lymphocyte % 1.9 %; Mean Platelet Volume 9.5 fL (7.4-10.4); Nucleated Red Blood Cells % 0.5; Platelet Count 132 10^3/uL (150-450)
[2018-12-28] MEDS ORDERED: Vancomycin per Pharmacy* NOTE FOLLOW UP PRN (06:49)
[2018-12-28] MEDS ORDERED: SODIUM CHLORIDE 3% IV SCH (07:30)
[2018-12-28] MEDS ORDERED: HYPERTONIC IV SCH (07:30)
[2018-12-28] MEDS: Ascorbic Acid TAB* 500 MG PO SCH (08:42)
--- NOTE | 2018-12-28 08:54 | PRO ---
PROCEDURE NOTE: DATE OF PROCEDURE: 12/27/18 - Inpatient, room EAH92-74 ATTENDING PHYSICIAN: Florencia Mendez MD. PROCEDURE: Femoral central line. INDICATION: Septic shock. ULTRASOUND USE: Yes. Consent was obtained from the patient prior to the procedure. Indications, risks, and benefits were explained at length. PROCEDURE SUMMARY: A time-out was performed. The left inguinal region was prepped using chlorhexidine scrub and draped in sterile fashion using a full drape. Sterile probes were employed. The femoral pulse was identified. Anesthesia was used with 1% lidocaine. Ultrasound-guided location of femoral vein was used to cannulate with introducer needle. Guidewire was placed without difficulty. A small incision was made at the skin surface and dilator was exchanged over guidewire. Appropriate dilation was obtained and then a 20- cm triple-lumen catheter was placed and sutured in fully hubbed. Repeat radiograph showed correct placement. There was blood return in all 3 ports with free flow of fluid. No complications. The patient tolerated the procedure well. She did require 1 mg of Ativan for anxiety during the procedure , but no further complications. Blood loss was less than 10 mL. [id number]/[facility] #: [id number] MTDD
[2018-12-28] MEDS ORDERED: Torsemide TAB 10 MG PO SCH (09:00)
[2018-12-28] MEDS: Famotidine SUSP ORALSYR 8 MG/ML PO SCH (09:24)
[2018-12-28] MEDS: Potassium Chloride* LIQUID 20 MEQ/15 ML UDC PO SCH (09:27)
[2018-12-28 09:34] LABS: Albumin/Globulin Ratio 1.1 (1-3); Globulin 2.8 g/dL (2-4); Indirect Bilirubin 0.6 mg/dL (0.3-1.0); Total Bilirubin 1.9 mg/dL (0.2-1.0); Total Protein 5.8 g/dL (6.4-8.9)
--- NOTE | 2018-12-28 12:15 | CONSULT ---
Consult Consult: Consultation Note -- Critical Care Requesting Physician: Dr Florencia Mendez Reason for consult: respiratory failure, septic shock Limitations in history/physical: intubated, sedated Date of consult: 12/28/2018 HPI: 63y F w/pmhx of Hodgkins Lymphoma [id number], s/p mediastinal RT, s/p relapse and ABVD , Afib on Xarelto, Left arm lymphedema, COPD, Pulm HTN, Left breast ductal Ca ER/ID+ and HER2- 04/2018 s/p mastectomy on chemotherapy (, given neulasta also), hypothyroidism; admitted 12/26 for cough, mild sputum production, noted to have severe hyponatremia 112, signs of volume overload with increased weight secondary to increased PO water intake and stopping diuretics after last chemo session. She was admitted and started on IV diuretics , then upgraded to ICU for hypertonic 3% saline infusion on 12/27 for suspected symptomatic hyponatremia with nausea/vomitting. Her last sodium improved to 116. Overnight 12/27-12/28 developed inreasing respiratory distress, fever tmax 103, intubated for WOB and then change in mental status, then hypotensive, started on levophed infusion, no IVF bolus given previous volume overload state , IV abx with cefepime/vanco/flagyl, central lines placed. Noted to have tachycardia, irregular, wide complex appearing, but reverted to NSR after intubation. Currently intubated, sedated. on levophed 14. propofol 30. no distress. ROS: unable to obtain secondary to intubated state PMHx: Hodgkins Lymphoma [id number], s/p mediastinal RT, s/p relapse and ABVD , Afib on Xarelto, Left arm lymphedema, COPD, Pulm HTN, Left breast ductal Ca ER/ ID+ and HER2- 04/2018 s/p mastectomy on chemotherapy (12/21, given neulasta also), hypothyroidism PSHx: mastectomy 09/2018, laparotomoy , s/p PPM Family History: paternal GM breast CA; father throad Ca, paternal aunt throat Ca Social History: Alcohol-none, [id number] 1ppd x10yr, stopped 15 yr back, Drug use-none Allergies: Allergies Allergy/AdvReac Type Severity Reaction Status Date / Time clindamycin Allergy Severe Tachycardia Verified 10/07/18 07:43 dronedarone Allergy Severe Anaphylatic Verified 10/07/18 07:43 Shock penicillin G Allergy Severe Anaphylatic Verified 10/07/18 07:43 Shock sotalol Allergy Intermediate Fatigue Verified 10/07/18 07:43 atenolol Allergy Unknown Verified 10/07/18 07:43 Reaction Details levofloxacin AdvReac Intermediate Itching Verified 10/07/18 07:43 Home Medications: Melcroft-3/Dha/Epa/Fish Oil [Fish Oil 500 mg Softgel] 1 cap PO QPM 04/05/13 [ History Confirmed 12/26/18] Levothyroxine TAB* [Synthroid 75 MCG TAB*] 75 mcg PO QAM 12/16/15 [History Confirmed 12/26/18] Metoprolol Tartrate TAB* [Lopressor TAB*] 25 mg PO BID 12/16/15 [History Confirmed 12/26/18] Ascorbic Acid TAB* [Vitamin C TAB*] 1,000 mg PO QAM 04/01/18 [History Confirmed 12/26/18] Calcium/Magnesium/Vitamin D3 [Manoj-Mag Complex 300-150 mg Tab] 2 tab PO BID 04/01 [History Confirmed 12/26/18] Rivaroxaban TAB(*) [Xarelto 20 mg] 20 mg PO QPM 04/01/18 [History Confirmed ] raNITIdine HCl [Ranitidine HCl] 150 mg PO QAM 04/01/18 [History Confirmed ] Magnesium Oxide TAB* [MagOx 400 TAB*] 400 mg PO BID 09/12/18 [History Confirmed 12/26/18] Torsemide TAB* [Demadex 20 MG*] 20 mg PO SEE INSTRUCTIONS 09/12/18 [History Confirmed 12/26/18] Potassium Chlor TAB* [Potassium Chlor TAB 20 MEQ*] 20 meq PO QAM 09/23/18 [ History Confirmed 12/26/18] Albuterol HFA INHALER* [Ventolin HFA Inhaler*] 2 puff INH Q6H PRN mdi 10/08/18 [Rx Confirmed 12/26/18] clonazePAM TAB(*) [Klonopin TAB(*)] 1 mg PO BEDTIME tab 10/08/18 [Rx Confirmed 12/26/18] oxyCODONE/Acetamin 5/325 MG* [Percocet 5/325 TAB*] 1 tab PO Q4H PRN tab [Rx Confirmed 12/26/18] Tikosyn CAP* 125 mcg PO TID 12/26/18 [History Confirmed 12/26/18] Tele: NSR now; rapid afib overnight Vitals: Vital Signs Temp 99.1 F 12/28/18 11:30 Pulse 85 12/28/18 11:30 Resp 13 12/28/18 11:00 BP 102/67 12/28/18 11:30 Pulse Ox 100 12/28/18 11:30 Intake & Output 12/27/18 12/28/18 12/28/18 18:59 06:59 18:59 Intake Total 577 728 Output Total 236 227 1336 Balance 0 Weight 76.113 kg Intake: IV Fluids 97 202 3% saline 97 202 IVPB 371 Abx 316 Cefepime 55 Medicated IV 155 Levophed 118 Propofol 37 Oral 480 Output: Urine 275 Mishra 740 2150 Other: # Bowel Movements 2 Estimated Stool Amount Large Large # Voids 2 O2/Vent: AC 14/450/+5/30% Infusions: propofol 30, levophed 14, hypertonic 3% 15cc/hr Current Medications: Acetaminophen (Tylenol Adult Liq*) 650 mg PO Q6H [facility] Last Admin: 12/28/18 09:24 Dose: 650 mg Albuterol (Ventolin Hfa Inhaler*) 2 puff INH Q6H PRN PRN Reason: SOB/WHEEZING Ascorbic Acid (Vitamin C Tab*) 1,000 mg PO DAILY [facility] Last Admin: 12/28/18 08:42 Dose: 1,000 mg Chlorhexidine Gluconate (Peridex Mouth Wash 0.12%*) 15 ml TOPICAL Q4H [facility] Last Admin: 12/28/18 08:41 Dose: 15 ml Dofetilide (Tikosyn Cap*) 125 mcg PO 0930,1430,2230 [facility] Last Admin: 12/28/18 10:31 Dose: 125 mcg Famotidine (Pepcid Susp 8mg/Ml) 20 mg PO DAILY [facility] Last Admin: 12/28/18 09:24 Dose: 20 mg Norepinephrine Bitartrate (Levophed 16 Mcg/Ml Premix Bag*) 4,000 mcg in 250 mls @ 18.75 mls/hr IV .INITIAL RATE ÁLVARO; Protocol Last Admin: 12/28/18 08:38 Dose: 15 mls/hr Propofol (Diprivan*) 100 mls @ 0 mls/hr IV .(Initial Rate) ÁLVARO; Protocol Last Admin: 12/28/18 09:21 Dose: 30 mls/hr Metronidazole/Sodium Chloride (Flagyl 500 Mg Ivpb*) 500 mg in 100 mls @ 100 mls /hr IVPB Q8H ÁLVARO Last Admin: 12/28/18 07:32 Dose: 100 mls/hr Vancomycin HCl 1,250 mg/ (Sodium Chloride) 250 mls @ 166.667 mls/hr IVPB Q12H ÁLVARO Sodium Chloride (Hypertonic) (Hypertonic Sod Chloride 3%*) 180 mls @ 0 mls/hr IV ONCE ÁLVARO; Protocol Stop: 12/29/18 06:03 Cefepime HCl (Maxipime 2 Gm In Dextrose Duplex (*)) 2 gm in 50 mls @ 100 mls/ hr IV Q12H [facility] Levothyroxine Sodium (Synthroid Tab*) 75 mcg PO QAM@0600 [facility] Last Admin: 12/28/18 06:15 Dose: 75 mcg Magnesium Oxide (Magox 400 Tab*) 400 mg PO Q12HR [facility] Last Admin: 12/28/18 08:41 Dose: 400 mg Pharmacy Consult (Vancomycin Per Pharmacy*) 1 note FOLLOW UP . PRN PRN Reason: PER PROTOCOL Pharmacy Profile Note (Vancomycin Trough Check) 1 note FOLLOW UP 1530 ONE Stop: 12/29/18 15:31 Potassium Chloride (Potassium Chloride Liquid) 20 meq PO DAILY [facility] Last Admin: 12/28/18 09:27 Dose: 20 meq Rivaroxaban (Xarelto(*)) 20 mg PO 1700 [facility] Last Admin: 12/27/18 17:26 Dose: 20 mg Physical Exam: Constitutional: intubated, sedated, no distress, no diaphoresis Head: normocephalic, atraumatic Eyes: no pallor, no icterus ENT: moist mucous membranes Neck: soft, supple, no jvd CVS: normal rate, regular, no murmur Resp: bilateral air entry, mild left rhonchi+, no rhales, no wheeze, no acc muscle use Abdomen/GI: soft, nondistended, BS+ Ext/Msk: warm, pulses+, no edema Skin: intact, cool lower ext, mild mottling bilateral feet; right hand chronic changes/mottling; left arm edema chronic Neuro: sedated, intubated; pupils pinpoint bilaterally, limited exam Labs: Laboratory Results - last 24 hr 12/27/18 12/27/18 12/27/18 14:25 18:30 19:50 WBC RBC Hgb Hct MCV MCH MCHC RDW Plt Count MPV Neut % (Auto) Lymph % (Auto) [place] % (Auto) Eos % (Auto) Baso % (Auto) Absolute Neuts (auto) Absolute Lymphs (auto) Absolute Monos (auto) Absolute Eos (auto) Absolute Basos (auto) Absolute Nucleated RBC Nucleated RBC % Patient Temperature ABG pH ABG pH (Temp Correct) ABG pCO2 ABG pCO2 (Temp Corrct ABG pO2 ABG pO2 (Temp Correct ABG HCO3 ABG O2 Saturation ABG Base Excess Respiration Rate O2 Delivery Device Ventilator Type Vent Mode FiO2 Inspiratory Time PEEP Pressure Support Pressure Control EPAP IPAP BiPAP Sodium 121 L D 112 L* D 113 L* Potassium 3.7 TNP Chloride 84 L 77 L Carbon Dioxide 31 28 Anion Gap 6 7 BUN 17 16 Creatinine 0.62 0.69 Est GFR ( Amer) 118.0 104.3 Est GFR (Non-Af Amer) 97.5 86.2 BUN/Creatinine Ratio 27.4 H 23.2 H Glucose 163 H 179 H Lactic Acid Calcium 8.0 L 8.3 L Total Bilirubin Direct Bilirubin Indirect Bilirubin AST ALT Alkaline Phosphatase Troponin I B-Natriuretic Peptide Total Protein Albumin Globulin Albumin/Globulin Ratio Urine Color Urine Appearance Urine pH Ur Specific Umbarger Urine Protein Urine Ketones Urine Blood Urine Nitrate Urine Bilirubin Urine Urobilinogen Ur Leukocyte Esterase Urine WBC (Auto) Urine RBC (Auto) Ur Squamous Epith Cells Urine Bacteria Hyaline Casts Urine Glucose Urine Ascorbic Acid 12/27/18 12/28/18 12/28/18 22:22 01:15 01:15 WBC RBC Hgb Hct MCV MCH MCHC RDW Plt Count MPV Neut % (Auto) Lymph % (Auto) [place] % (Auto) Eos % (Auto) Baso % (Auto) Absolute Neuts (auto) Absolute Lymphs (auto) Absolute Monos (auto) Absolute Eos (auto) Absolute Basos (auto) Absolute Nucleated RBC Nucleated RBC % Patient Temperature ABG pH ABG pH (Temp Correct) ABG pCO2 ABG pCO2 (Temp Corrct ABG pO2 ABG pO2 (Temp Correct ABG HCO3 ABG O2 Saturation ABG Base Excess Respiration Rate O2 Delivery Device Ventilator Type Vent Mode FiO2 Inspiratory Time PEEP Pressure Support Pressure Control EPAP IPAP BiPAP Sodium 113 L* 114 L* Potassium 4.6 4.3 Chloride 77 L 77 L Carbon Dioxide 28 30 Anion Gap 8 7 BUN 17 19 Creatinine 0.77 0.93 Est GFR ( Amer) 91.9 73.9 Est GFR (Non-Af Amer) 76.0 61.1 BUN/Creatinine Ratio 22.1 H 20.4 H Glucose 161 H 168 H Lactic Acid 2.4 H* Calcium 8.4 L 8.1 L Total Bilirubin Direct Bilirubin Indirect Bilirubin AST ALT Alkaline Phosphatase Troponin I B-Natriuretic Peptide Total Protein Albumin Globulin Albumin/Globulin Ratio Urine Color Urine Appearance Urine pH Ur Specific Umbarger Urine Protein Urine Ketones Urine Blood Urine Nitrate Urine Bilirubin Urine Urobilinogen Ur Leukocyte Esterase Urine WBC (Auto) Urine RBC (Auto) Ur Squamous Epith Cells Urine Bacteria Hyaline Casts Urine Glucose Urine Ascorbic Acid 12/28/18 12/28/18 12/28/18 03:03 03:55 05:00 WBC RBC Hgb Hct MCV MCH MCHC RDW Plt Count MPV Neut % (Auto) Lymph % (Auto) [place] % (Auto) Eos % (Auto) Baso % (Auto) Absolute Neuts (auto) Absolute Lymphs (auto) Absolute Monos (auto) Absolute Eos (auto) Absolute Basos (auto) Absolute Nucleated RBC Nucleated RBC % Patient Temperature Not Reportable ABG pH 7.53 H ABG pH (Temp Correct) Not Reportable ABG pCO2 34 L ABG pCO2 (Temp Corrct Not Reportable ABG pO2 529 H ABG pO2 (Temp Correct Not Reportable ABG HCO3 29.5 ABG O2 Saturation 100.0 H ABG Base Excess 5.8 H Respiration Rate 16 O2 Delivery Device [facility] vent Ventilator Type 450 Vent Mode cmv FiO2 100 Inspiratory Time 1.0 PEEP 5 Pressure Support Not Reportable Pressure Control Not Reportable EPAP Not Reportable IPAP Not Reportable BiPAP Not Reportable Sodium Potassium Chloride Carbon Dioxide Anion Gap BUN Creatinine Est GFR ( Amer) Est GFR (Non-Af Amer) BUN/Creatinine Ratio Glucose Lactic Acid Calcium Total Bilirubin Direct Bilirubin Indirect Bilirubin AST ALT Alkaline Phosphatase Troponin I 0.00 B-Natriuretic Peptide Total Protein Albumin Globulin Albumin/Globulin Ratio Urine Color [place] Urine Appearance Cloudy Urine pH 6.0 Ur Specific Umbarger 1.013 Urine Protein 2+(100 mg/dl) A Urine Ketones Negative Urine Blood 3+ A Urine Nitrate Negative Urine Bilirubin Negative Urine Urobilinogen Negative Ur Leukocyte Esterase Negative Urine WBC (Auto) 3+(>20/hpf) A Urine RBC (Auto) 3+(>10/hpf) A Ur Squamous Epith Cells Present A Urine Bacteria Absent Hyaline Casts Present A Urine Glucose Negative Urine Ascorbic Acid * A 12/28/18 12/28/18 12/28/18 05:23 05:23 05:23 WBC 1.5 L RBC 4.32 Hgb 12.9 Hct 38 MCV 87 MCH 30 MCHC 34 RDW 14 Plt Count 132 L MPV 9.5 Neut % (Auto) 82.2 Lymph % (Auto) 1.9 [place] % (Auto) 14.3 Eos % (Auto) 0.6 Baso % (Auto) 1.0 Absolute Neuts (auto) 1.2 L Absolute Lymphs (auto) 0.0 L Absolute Monos (auto) 0.2 Absolute Eos (auto) 0.0 Absolute Basos (auto) 0.0 Absolute Nucleated RBC 0.0 Nucleated RBC % 0.5 Patient Temperature ABG pH ABG pH (Temp Correct) ABG pCO2 ABG pCO2 (Temp Corrct ABG pO2 ABG pO2 (Temp Correct ABG HCO3 ABG O2 Saturation ABG Base Excess Respiration Rate O2 Delivery Device Ventilator Type Vent Mode FiO2 Inspiratory Time PEEP Pressure Support Pressure Control EPAP IPAP BiPAP Sodium 116 L* Potassium 4.0 Chloride 79 L Carbon Dioxide 28 Anion Gap 9 BUN 20 Creatinine 1.05 H Est GFR ( Amer) 64.3 Est GFR (Non-Af Amer) 53.1 BUN/Creatinine Ratio 19.0 Glucose 161 H Lactic Acid 2.4 H* Calcium 8.0 L Total Bilirubin 1.90 H Direct Bilirubin 1.30 H Indirect Bilirubin 0.6 AST 24 ALT 26 Alkaline Phosphatase 70 Troponin I 0.02 B-Natriuretic Peptide Total Protein 5.8 L Albumin 3.0 L Globulin 2.8 Albumin/Globulin Ratio 1.1 Urine Color Urine Appearance Urine pH Ur Specific Umbarger Urine Protein Urine Ketones Urine Blood Urine Nitrate Urine Bilirubin Urine Urobilinogen Ur Leukocyte Esterase Urine WBC (Auto) Urine RBC (Auto) Ur Squamous Epith Cells Urine Bacteria Hyaline Casts Urine Glucose Urine Ascorbic Acid 12/28/18 12/28/18 12/28/18 05:23 09:42 09:42 WBC RBC Hgb Hct MCV MCH MCHC RDW Plt Count MPV Neut % (Auto) Lymph % (Auto) [place] % (Auto) Eos % (Auto) Baso % (Auto) Absolute Neuts (auto) Absolute Lymphs (auto) Absolute Monos (auto) Absolute Eos (auto) Absolute Basos (auto) Absolute Nucleated RBC Nucleated RBC % Patient Temperature ABG pH ABG pH (Temp Correct) ABG pCO2 ABG pCO2 (Temp Corrct ABG pO2 ABG pO2 (Temp Correct ABG HCO3 ABG O2 Saturation ABG Base Excess Respiration Rate O2 Delivery Device Ventilator Type Vent Mode FiO2 Inspiratory Time PEEP Pressure Support Pressure Control EPAP IPAP BiPAP Sodium Potassium Chloride Carbon Dioxide Anion Gap BUN Creatinine Est GFR ( Amer) Est GFR (Non-Af Amer) BUN/Creatinine Ratio Glucose Lactic Acid 1.9 Calcium Total Bilirubin Direct Bilirubin Indirect Bilirubin AST ALT Alkaline Phosphatase Troponin I 0.02 B-Natriuretic Peptide 1272 H Total Protein Albumin Globulin Albumin/Globulin Ratio Urine Color Urine Appearance Urine pH Ur Specific Umbarger Urine Protein Urine Ketones Urine Blood Urine Nitrate Urine Bilirubin Urine Urobilinogen Ur Leukocyte Esterase Urine WBC (Auto) Urine RBC (Auto) Ur Squamous Epith Cells Urine Bacteria Hyaline Casts Urine Glucose Urine Ascorbic Acid 12/28/18 11:32 WBC RBC Hgb Hct MCV MCH MCHC RDW Plt Count MPV Neut % (Auto) Lymph % (Auto) [place] % (Auto) Eos % (Auto) Baso % (Auto) Absolute Neuts (auto) Absolute Lymphs (auto) Absolute Monos (auto) Absolute Eos (auto) Absolute Basos (auto) Absolute Nucleated RBC Nucleated RBC % Patient Temperature ABG pH ABG pH (Temp Correct) ABG pCO2 ABG pCO2 (Temp Corrct ABG pO2 ABG pO2 (Temp Correct ABG HCO3 ABG O2 Saturation ABG Base Excess Respiration Rate O2 Delivery Device Ventilator Type Vent Mode FiO2 Inspiratory Time PEEP Pressure Support Pressure Control EPAP IPAP BiPAP Sodium 127 L D Potassium Chloride Carbon Dioxide Anion Gap BUN Creatinine Est GFR ( Amer) Est GFR (Non-Af Amer) BUN/Creatinine Ratio Glucose Lactic Acid Calcium Total Bilirubin Direct Bilirubin Indirect Bilirubin AST ALT Alkaline Phosphatase Troponin I B-Natriuretic Peptide Total Protein Albumin Globulin Albumin/Globulin Ratio Urine Color Urine Appearance Urine pH Ur Specific Umbarger Urine Protein Urine Ketones Urine Blood Urine Nitrate Urine Bilirubin Urine Urobilinogen Ur Leukocyte Esterase Urine WBC (Auto) Urine RBC (Auto) Ur Squamous Epith Cells Urine Bacteria Hyaline Casts Urine Glucose Urine Ascorbic Acid Imaging: CXr 12/28 - Right > left infiltrates are new and progressive in upper and lower lobes+ Assessment: 63y F w/pmhx of Hodgkins Lymphoma [id number], s/p mediastinal RT, s/p relapse and ABVD , Afib on Xarelto, Left arm lymphedema, COPD, Pulm HTN, Left breast ductal Ca ER/ID+ and HER2- 04/2018 s/p mastectomy on chemotherapy ( 12/21, given neulasta also), hypothyroidism; admitted 12/26 for cough, mild sputum production, noted to have severe hyponatremia 112, signs of volume overload with increased weight secondary to increased PO water intake and stopping diuretics after last chemo session. She was admitted and started on IV diuretics, then upgraded to ICU for hypertonic 3% saline infusion on 12/27 for suspected symptomatic hyponatremia with nausea/vomitting. Her last sodium improved to 116. Overnight 12/27-12/28 developed inreasing respiratory distress, fever tmax 103, intubated for WOB and then change in mental status, then hypotensive, started on levophed infusion, no IVF bolus given previous volume overload state, IV abx with cefepime/vanco/flagyl, central lines placed. Noted to have tachycardia, irregular, wide complex appearing, but reverted to NSR after intubation. -Acute Hypoxic Respiratory failure, intubated 12/28 -Suspected Pneumonia on right -Septic Shock -Neutropenic Sepsis -Mild thromboctyopenia -Severe symptomatic hyponatremia -LISA ?Decompensated CHF Breast Ca on Chemotherapy 12/21 Afib on Xarelto Plan: Neuro- -sedated on propofol 30 -chronic pain on percocet at home; will start low dose fentanyl for pain control ; dec propofol -eventual restart PO percocet as needed once awake/extubated -Delirium prec; avoid BDZ CVS- -septic shock suspected; underlying neutropenia -initialy hypervolemia on admission, diuresed, clinically appears euvolemic -will hold further IVF bolus given decompensated heart fialure state and hypervolemic hyponatremia -cont IV levophed infusion -Titrate Pressors to Maintain MAP>65 -IV abx -last Na 116; repeat veyr high, pending another repeat Na level; cont 3% hypertonic saline at 15cc/hr -Afib history; currently NSR, likely had paroxysmal afib from resp distress; cont xarelto for AC; cont Tikosyn for rhythm control -hold BB for hypotension -s/p lasix 40mg x1 this morning; hold further pending repeat labs Resp- -intubated on 30% fio2; sats 100% -CXR 12/28 with right>left infitlrates+ -sputum+; sputum culture with gram neg/pos on smear; pending growth/ID -IV abx -no plan for vent weaning today; plan tomorrow -Wean Fio2 to keep sat>92% -Bronchodilators PRN, Aspiration prec, Pulmonary Toilet -VAP bundle ID- tmax 103, wbc 0.5, now 1.5 -breast Ca, on chemo 12/21, s/p neulasta post chemo, now neutropenic -CXR 12/28 with increased left infiltrates++ -sputum growth pending, blood and urine cx pending; urinalyis without bacteria or LE -agree with Cefepime 2gm IV q12h (day#1)(renal dosing), Vanco 1.25gm IV q12h ( day#1) with pharmacy dosing, check vanco level tomorrow -had mild diarrhea; check c.diff; on flagyl IV q8h (day#1) GI- -NPO now; OGT+ -c.diff pending for previous diarrhea; nontender/nondistended abd otherwise -ogt to gravity or intermittent suction; plan for TF tomorrow if still remains intubated -GI prophylaxis as needed Renal- -LISA likely from hypotension/sepsis; Cr incr from 0.5 to 1.0; though making great urine output -K okay; LA improved, no metabolic acidosis noted -s/p lasix 40mg IV; making good urine now -hyponatremia; initially noted to be hypervolemic hyponatremia; given diuretics ; now on hypertonic 3% -no sig peripherally edema noted; CXr more consistent with patchy infitlrates/ pneumonia -last Na very elevated; check Na now, cont 3% at 15cc/hr; goal change of <10meq/ day of Na -q4h BMP -once Na corrected then will restart normal saline for volume if needed -strict I/O, replete to keep K>4, Mg>2 -mishra as indicated Heme- -anemia; stable 04-21 -no bleeding -Mild thromboctyopenia 130s -neutropenic; s/p neulast 7 days back; neutropenic precautions -Heme/Onc following for breast Ca -DVT proph with SCD/chemical (xarelto) Endo- Maintain BG<200, insulin protocol as needed. -cont synthroid po 75 mcg daily Musculsk- pressure ulcer prophylaxis. Bedrest. Wounds- none Nutrition- NPO, ogt+ DVT prophylaxis: SCD, xarelto po GI prophylaxis: h2b Central Line: left fem 12/28 Arterial Line: no Mishra Cathetor: yes 12/28 Disposition: Patient requires Critical Care/ICU for respiratory failure req intubation, septic shock on pressors, neutropenic sepsis, hyponatremia req hypertonic saline Patient Clinical Status: guarded, critical Code Status: full code Total Critical Care time is 60 minutes, excluding procedures/teaching Lawrence Sanchez MD [facility] And Alcohol Treatment Specialist (Electronically Signed)
--- NOTE | 2018-12-28 12:41 | PN ---
Sepsis Event Evaluation Date of Evaluation: 12/28/18 Time of Evaluation: 10:00 Current Stage of Sepsis: Septic Shock Vital Signs - Last 12 Hours: Vital Signs - 12 hr Temp Pulse Resp BP Pulse Ox 12/28/18 12:15 99.3 F 79 110/59 98 12/28/18 12:00 99.3 F 85 110/59 98 12/28/18 11:45 99.3 F 86 118/65 98 12/28/18 11:30 99.1 F 85 102/67 100 12/28/18 11:15 99.1 F 84 119/67 99 12/28/18 11:00 99.1 F 84 13 116/68 98 12/28/18 10:45 99.1 F 84 116/64 98 12/28/18 10:30 99.3 F 85 116/60 98 12/28/18 10:15 99.3 F 85 118/66 98 12/28/18 10:00 99.3 F 85 12 118/62 98 12/28/18 09:45 99.5 F 87 106/78 98 12/28/18 09:30 99.5 F 88 123/65 98 12/28/18 09:15 99.5 F 89 116/72 99 12/28/18 09:00 99.7 F 86 12 118/66 98 12/28/18 08:45 99.9 F 86 112/62 98 12/28/18 08:30 99.9 F 85 116/63 98 12/28/18 08:20 99.5 F 87 107/66 98 12/28/18 08:15 100.0 F 88 85/60 100 12/28/18 08:00 100.2 F 87 12 104/64 98 12/28/18 07:45 100.2 F 88 103/69 98 12/28/18 07:30 100.4 F 87 111/56 98 12/28/18 07:15 100.8 F 87 99/65 98 12/28/18 07:00 101.1 F 89 13 113/53 98 12/28/18 06:45 101.7 F 90 97/64 98 12/28/18 06:30 101.8 F 90 112/58 98 12/28/18 06:15 102.0 F 86 110/62 98 12/28/18 06:00 102.4 F 87 14 111/55 100 12/28/18 05:45 102.6 F 86 102/63 100 12/28/18 05:30 102.6 F 80 109/62 100 12/28/18 05:15 102.7 F 83 112/48 100 12/28/18 05:01 102.7 F 82 100 12/28/18 05:00 102.9 F 83 18 109/58 99 12/28/18 04:45 102.9 F 79 98/57 100 12/28/18 04:27 103.3 F 79 91/43 100 12/28/18 04:16 75 73/38 100 12/28/18 04:15 76 77/44 100 12/28/18 04:10 80 115/50 100 12/28/18 04:00 74 19 79/45 100 12/28/18 03:57 74 92/45 100 12/28/18 03:45 75 96/48 100 12/28/18 03:40 73 100/50 100 12/28/18 03:30 70 100/51 100 12/28/18 03:16 69 15 100/68 100 12/28/18 03:12 103.3 F 69 33 117/60 96 12/28/18 03:00 98 34 95 12/28/18 02:15 101.8 F 73 29 96/57 100 12/28/18 02:01 101.8 F 70 26 98 12/28/18 02:00 101.7 F 70 25 91/52 96 12/28/18 01:51 101.7 F 71 20 86/43 95 12/28/18 01:48 101.7 F 73 21 83/44 97 12/28/18 01:45 101.7 F 73 25 68/38 93 12/28/18 01:30 101.5 F 75 29 89/38 92 12/28/18 01:24 101.1 F 75 26 107/50 95 12/28/18 01:16 101.5 F 76 23 96/40 89 12/28/18 01:00 101.3 F 79 24 83/43 94 12/28/18 00:45 101.3 F 92 25 146/66 95 Lactic Acid: 12/28/18 12/28/18 12/28/18 01:15 05:23 09:42 Lactic Acid 2.4 H* 2.4 H* 1.9 - Cardiopulmonary Exam Capillary Refill: Immediate Respiratory: Symmetrical Chest Expansion and Respiratory Effort, Clear to Auscultation Cardiovascular: NL Sounds; No Murmurs; No JVD, RRR, No Edema - Peripheral Pulse Exam Radial Pulses: Left Normal, Right Diminished Pedal Pulses: Bilateral Normal Posterior Tibial Pulse: Bilateral Normal Femoral Pulses: Bilateral Normal Popliteal Pulses: Bilateral Normal - Skin Exam Skin Exam: Mottling - mild motting on LE feet noted, minimal none in LE legs though; chronic right hand mottling - [place] Coma Scale Best Eye Response: 1 - None Best Motor Response: 1 - None Best Verbal Response: 1 - Intubated Coma Scale Total: 3.0 Assess/Plan/Problems-Billing Assessment:
[2018-12-28] MEDS ORDERED: fentaNYL INFUSION 50 MCG/ML* 2,500 MCG/50 ML BAG IV SCH (13:00)
[2018-12-28] MEDS ORDERED: D5W 1000 ML BAG* 1,000 ML IV SCH ×2 (13:00→13:37)
[2018-12-28 13:01] LABS: Troponin I 0.01 ng/mL (<0.04)
[2018-12-28] MEDS: Vancomycin(*) 1,250 MG in NS 0.9% 250 ML* 250 ML IVPB SCH (16:10)
[2018-12-28] MEDS ORDERED: Desmopressin Acetate* 2 MCG in NS 0.9% 50 ML* 50 ML IVPB ONE (17:00)
[2018-12-28] MEDS: D5W 1000 ML BAG* 1,000 ML IV SCH ×4 (17:08→23:46)
[2018-12-28] MEDS: Rivaroxaban TAB(*) 20 MG TAB PO SCH (17:28)
[2018-12-28 18:09] LABS: BUN/Creatinine Ratio 18.1 (8-20); Calcium 7.8 mg/dL (8.6-10.3); EGFR African American 84.3 (>60); EGFR Non-African American 69.7 (>60); Potassium 3.3 mmol/L (3.5-5.0)
[2018-12-28 18:26] LABS: Urine Creatinine Concentration 31.96 mg/dL; Urine Sodium Concentration < 18 mmol/L
[2018-12-28] MEDS ORDERED: KCL 20 MEQ/100 ML IVPREMIX* 20 MEQ/100 ML BAG IV ONE ×2 (19:10→20:30)
[2018-12-28 20:35] LABS: BUN/Creatinine Ratio 16.9 (8-20); Calcium 7.5 mg/dL (8.6-10.3); EGFR African American 84.3 (>60); EGFR Non-African American 69.7 (>60); Magnesium 2.1 mg/dL (1.9-2.7); Potassium 3.2 mmol/L (3.5-5.0)
[2018-12-28] MEDS: KCL 20 MEQ/100 ML IVPREMIX* 20 MEQ/100 ML BAG IV SCH (23:46)
[2018-12-29] LABS: BUN/Creatinine Ratio 15.6 (8-20); Calcium 7.4 mg/dL (8.6-10.3); EGFR African American 91.9 (>60); Magnesium 1.9 mg/dL (1.9-2.7); Potassium 3.3 mmol/L (3.5-5.0)
[2018-12-29] MEDS: Vasopressin* 100 UNITS in D5W 250 ML BAG* 245 ML IV SCH (00:01)
[2018-12-29] MEDS ORDERED: Magnesium Sulfate 2 GM IV (Premix) IVPB ONE (00:30)
[2018-12-29] MEDS: Propofol* 100 ML IV SCH ×4 (01:05→13:15)
[2018-12-29] MEDS: Norepinephrine 16MCG/ML IVPRE* 4,000 MCG/250 ML BAG IV SCH ×3 (01:36→09:48)
[2018-12-29] MEDS: KCL 20 MEQ/100 ML IVPREMIX* 20 MEQ/100 ML BAG IV SCH (01:37)
[2018-12-29] MEDS: Chlorhexidine MOUTHWASH 0.12%* 15 ML UDC TOPICAL SCH ×6 (04:43→23:48)
[2018-12-29] MEDS: Acetaminophen ADULT LIQ* 650 MG/20.3 ML UDC PO SCH ×4 (04:43→22:22)
[2018-12-29] MEDS: Vancomycin(*) 1,250 MG in NS 0.9% 250 ML* 250 ML IVPB SCH (04:45)
[2018-12-29] MEDS ORDERED: Desmopressin Acetate* 4 MCG/ML 1 ML SDV IV ONE (05:00)
[2018-12-29 05:24] LABS: Hematocrit 40 % (35-47); Mean Corpuscular HGB Conc 33 g/dL (31-36); Mean Corpuscular Hemoglobin 29 pg (27-31); Mean Corpuscular Volume 88 fL (80-97); Mean Platelet Volume 9.4 fL (7.4-10.4); Platelet Count 130 10^3/uL (150-450); Red Blood Count 4.56 10^6 /uL (3.70-4.87); Red Cell Distribution Width 14 % (10-15); White Blood Count 11.7 10^3/uL (3.5-10.8)
[2018-12-29] MEDS: Levothyroxine TAB* 75 MCG TAB PO SCH (05:33)
[2018-12-29 05:41] LABS: BUN/Creatinine Ratio 14.7 (8-20); Calcium 7.7 mg/dL (8.6-10.3); EGFR African American 106.1 (>60); EGFR Non-African American 87.7 (>60); Magnesium 2.3 mg/dL (1.9-2.7); Phosphorus 1.5 mg/dL (2.5-5.0); Potassium 3.8 mmol/L (3.5-5.0)
[2018-12-29] MEDS ORDERED: Potassium Phosphate IV* 15 MMOLE in NS 0.9% 250 ML* 250 ML IVPB ONE (06:00)
[2018-12-29] MEDS: Potassium Chloride* LIQUID 20 MEQ/15 ML UDC PO SCH (08:26)
[2018-12-29] MEDS: Famotidine SUSP ORALSYR 8 MG/ML PO SCH (08:26)
[2018-12-29] MEDS: Ascorbic Acid TAB* 500 MG PO SCH (08:26)
[2018-12-29] MEDS: Magnesium Oxide TAB* 400 MG PO SCH ×2 (08:26→20:57)
[2018-12-29] MEDS: Dofetilide CAP* 125 MCG PO SCH ×3 (08:26→22:22)
[2018-12-29] MEDS: Cefepime* 2 GM in Dextrose 50mL Q12H (Duplex) IV SCH ×2 (08:51→22:22)
[2018-12-29] MEDS ORDERED: Torsemide TAB 10 MG PO SCH (09:00)
--- NOTE | 2018-12-29 10:11 | PN ---
Progress Note - Progress Note Date of Service: 12/29/18 SOAP: Subjective: intubated and sedated, can not provide history Patient called on 12/19 with c/o typical allergy symptoms (runny nose, mild cough ) inquiring if she should get chemo on 12/21. Advised to come in for assessment 12/21 and decision would be made. 12/20 felt overall better. 12/21 stable allergy symptoms, no fevers. received TC with neulasta 12/22. Called 12/24 with bone pains from chemo. advised to take motrin along with baseline pain meds. called 12/25 with mouth sores. was not using baking soda rinses. continued bone pains biggest complaint. Apparently took herself off of her diuretics over weekend but did not advise me of this. Came in 12/26 with weight gain 8 lbs in setting of being off of diuretics, mild chills, no fevers. not eating well but drinking lots of fluids. found to be profoundly hyponatremic and admitted. rest of events as per chart. Objective: Vital Signs Temp Pulse Resp BP Pulse Ox 98.8 F 108 16 113/72 96 12/29/18 09:45 12/29/18 09:45 12/29/18 07:00 12/29/18 09:45 12/29/18 09:45 intubated, sedated mild blood tinged drainage in OG tube ET tube in place rhonchorous bs tachy soft nt +Bs left chest wall well healed r arm atrophy l arm lymphedema trace LE edema sedated Laboratory Results - last 24 hr 12/27/18 12/28/18 12/28/18 07:21 05:23 09:42 WBC RBC Hgb Hct MCV MCH MCHC RDW Plt Count MPV Hem Pathologist Commnt Sodium Potassium Chloride Carbon Dioxide Anion Gap BUN Creatinine Est GFR ( Amer) Est GFR (Non-Af Amer) BUN/Creatinine Ratio Glucose Serum Osmolality Lactic Acid Calcium Phosphorus Magnesium Troponin I 0.02 B-Natriuretic Peptide 1272 H Urine Osmolality Ur Creatinine Concen U Sodium Concentration 12/28/18 12/28/18 12/28/18 09:42 11:32 12:29 WBC RBC Hgb Hct MCV MCH MCHC RDW Plt Count MPV Hem Pathologist Commnt Sodium 127 L D 127 L Potassium Chloride Carbon Dioxide Anion Gap BUN Creatinine Est GFR ( Amer) Est GFR (Non-Af Amer) BUN/Creatinine Ratio Glucose Serum Osmolality Lactic Acid 1.9 Calcium Phosphorus Magnesium Troponin I 0.01 B-Natriuretic Peptide Urine Osmolality Ur Creatinine Concen U Sodium Concentration 12/28/18 12/28/18 12/28/18 16:07 17:07 17:07 WBC RBC Hgb Hct MCV MCH MCHC RDW Plt Count MPV Hem Pathologist Commnt Sodium 129 L Potassium 3.3 L Chloride 93 L Carbon Dioxide 29 Anion Gap 7 BUN 15 Creatinine 0.83 Est GFR ( Amer) 84.3 Est GFR (Non-Af Amer) 69.7 BUN/Creatinine Ratio 18.1 Glucose 221 H Serum Osmolality Lactic Acid Calcium 7.8 L Phosphorus Magnesium Troponin I B-Natriuretic Peptide Urine Osmolality 198 Ur Creatinine Concen 31.96 U Sodium Concentration < 18 12/28/18 12/28/18 12/28/18 18:14 20:04 23:35 WBC RBC Hgb Hct MCV MCH MCHC RDW Plt Count MPV Hem Pathologist Commnt Sodium 125 L 121 L Potassium 3.2 L 3.3 L Chloride 91 L 89 L Carbon Dioxide 29 26 Anion Gap 5 6 BUN 14 12 Creatinine 0.83 0.77 Est GFR ( Amer) 84.3 91.9 Est GFR (Non-Af Amer) 69.7 76.0 BUN/Creatinine Ratio 16.9 15.6 Glucose 263 H 267 H Serum Osmolality 279 Lactic Acid Calcium 7.5 L 7.4 L Phosphorus Magnesium 2.1 1.9 Troponin I B-Natriuretic Peptide Urine Osmolality Ur Creatinine Concen U Sodium Concentration 12/29/18 12/29/18 12/29/18 03:50 05:00 05:00 WBC 11.7 H RBC 4.56 Hgb 13.0 Hct 40 MCV 88 MCH 29 MCHC 33 RDW 14 Plt Count 130 L MPV 9.4 Hem Pathologist Commnt Sodium 123 L 122 L Potassium 3.8 Chloride 90 L Carbon Dioxide 26 Anion Gap 6 BUN 10 Creatinine 0.68 Est GFR ( Amer) 106.1 Est GFR (Non-Af Amer) 87.7 BUN/Creatinine Ratio 14.7 Glucose 176 H Serum Osmolality Lactic Acid Calcium 7.7 L Phosphorus 1.5 L Magnesium 2.3 Troponin I B-Natriuretic Peptide Urine Osmolality Ur Creatinine Concen U Sodium Concentration 12/29/18 08:27 WBC RBC Hgb Hct MCV MCH MCHC RDW Plt Count MPV Hem Pathologist Commnt Sodium 122 L Potassium Chloride Carbon Dioxide Anion Gap BUN Creatinine Est GFR ( Amer) Est GFR (Non-Af Amer) BUN/Creatinine Ratio Glucose Serum Osmolality Lactic Acid Calcium Phosphorus Magnesium Troponin I B-Natriuretic Peptide Urine Osmolality Ur Creatinine Concen U Sodium Concentration Acetaminophen (Tylenol Adult Liq*) 650 mg PO Q6H [facility] Last Admin: 12/29/18 09:49 Dose: 650 mg Albuterol (Ventolin Hfa Inhaler*) 2 puff INH Q6H PRN PRN Reason: SOB/WHEEZING Ascorbic Acid (Vitamin C Tab*) 1,000 mg PO DAILY [facility] Last Admin: 12/29/18 08:26 Dose: 1,000 mg Chlorhexidine Gluconate (Peridex Mouth Wash 0.12%*) 15 ml TOPICAL Q4H [facility] Last Admin: 12/29/18 08:02 Dose: 15 ml Dofetilide (Tikosyn Cap*) 125 mcg PO 0930,1430,2230 [facility] Last Admin: 12/29/18 08:26 Dose: 125 mcg Famotidine (Pepcid Susp 8mg/Ml) 20 mg PO DAILY [facility] Last Admin: 12/29/18 08:26 Dose: 20 mg Norepinephrine Bitartrate (Levophed 16 Mcg/Ml Premix Bag*) 4,000 mcg in 250 mls @ 18.75 mls/hr IV .INITIAL RATE ÁLVARO; Protocol Last Admin: 12/29/18 09:48 Dose: 18.75 mls/hr Propofol (Diprivan*) 100 mls @ 0 mls/hr IV .(Initial Rate) Á[facility]AR[facility]; Protocol Last Admin: 12/29/18 08:31 Dose: 22.3 mls/hr Vancomycin HCl 1,250 mg/ (Sodium Chloride) 250 mls @ 166.667 mls/hr IVPB Q12H [facility] Last Admin: 12/29/18 04:45 Dose: 166.667 mls/hr Cefepime HCl (Maxipime 2 Gm In Dextrose Duplex (*)) 2 gm in 50 mls @ 100 mls/ hr IV Q12H Á[facility] Last Admin: 12/29/18 08:51 Dose: 100 mls/hr Fentanyl Citrate (Fentanyl Infusion Bag 50 Mcg/Ml 50 Ml) 2,500 mcg in 50 mls @ 0.2 mls/hr IV Q72H Á[facility]AR[facility]; Protocol Last Admin: 12/28/18 13:20 Dose: 0.2 mls/hr Vasopressin 100 units/ (Dextrose) 250 mls @ 6 mls/hr IV Q24H Á[facility]AR[facility]; Protocol Last Admin: 12/29/18 00:01 Dose: 6 mls/hr Levothyroxine Sodium (Synthroid Tab*) 75 mcg PO QAM@0600 [facility] Last Admin: 12/29/18 05:33 Dose: 75 mcg Magnesium Oxide (Magox 400 Tab*) 400 mg PO Q12HR Á[facility] Last Admin: 12/29/18 08:26 Dose: 400 mg Pharmacy Consult (Vancomycin Per Pharmacy*) 1 note FOLLOW UP . PRN PRN Reason: PER PROTOCOL Pharmacy Profile Note (Vancomycin Trough Check) 1 note FOLLOW UP 1530 ONE Stop: 12/29/18 15:31 Potassium Chloride (Potassium Chloride Liquid) 20 meq PO DAILY [facility] Last Admin: 12/29/18 08:26 Dose: 20 meq Rivaroxaban (Xarelto(*)) 20 mg PO 1700 [facility] Last Admin: 12/28/18 17:28 Dose: 20 mg Assessment: 63 yo F w remote hodgkin's disease sp ABVD/mediastinal RT w course c/b pneumonitis, pHTN, r brachial plexopathy and left lymphedema, now with T2N1M0 ER + IDC sp cycle 1 of Taxotere/cytoxan admitted with profound hyponatremia and quickly developed respiratory distress, febrile neutropenia and hypotension. Now intubated on pressors with enterobacter in blood. Plan: febrile neutropenia: early development despite growth factor support, ?from prior chemotherapy use. short duration and currently recovered. expect significant rise in WBC with neulasta agree with broad spectrum antibiotics appreciate critical care medicine management DI-like picture: unclear etiology cytoxan has been reported to cause hyponatremia and an SIADH like syndrome (not a DI syndrome that I am aware of) and usually at higher doses and generally resolves within 24 hours of stopping this agent. She also stopped her diuretics which confounded the picture. oncology will continue to follow very closely
--- NOTE | 2018-12-29 11:06 | PN ---
Progress Note - Progress Note Date of Service: 12/29/18 Note: Progress Note -- Critical Care 24 hour events -events noted from yesterday -remains intubated; on levophed and vasopressin -UOP has decreased far more, s/p ddavp 2mcg yesterday -off d5w infusion -uop now 40-50/hr -afebrile, no distress -HR low 100s, underlying aflutter noted, yesterday more tachycardic in evening though -on propofola nd fentanyl; awakens but restless yesterday, no sedation vacation yet today -not on TF yet -noted to have edema peripherally now compared to yesterday -mild secretions from ETT suctioned Tele: aflutter noted Vitals: Vital Signs Temp 98.8 F 12/29/18 09:45 Pulse 108 12/29/18 09:45 Resp 16 12/29/18 09:00 BP 113/72 12/29/18 09:45 Pulse Ox 96 12/29/18 09:45 Intake & Output 12/28/18 12/29/18 12/29/18 18:59 06:59 18:59 Intake Total 1082.9 4823 Output Total 4305 765 114 Balance -3222.1 4058 -114 Weight 75.6 kg Intake: IV Fluids 281.9 2877 3% saline 90.9 D5W 191 2431 KCl 402 NS 44 IVPB 275 576 Abx 576 Cefepime 58 Flagyl 217 Medicated IV 526 1368 Levophed 424 995 Propofol 102 334 Vasopressin 39 IV Narcotic Infusion 2 Fentanyl 2 Output: Mishra 4305 765 114 Other: Date of Last Bowel 12/29/18 Movement # Bowel Movements 3 Estimated Stool Amount Medium O2/Vent: AC 14/450/+5/30% Infusions: propofol 50, levophed 10, vasopressin 0.04 u/min, fentanyl 25mcg/hr Current Medications: Acetaminophen (Tylenol Adult Liq*) 650 mg PO Q6H [facility] Last Admin: 12/29/18 09:49 Dose: 650 mg Albuterol (Ventolin Hfa Inhaler*) 2 puff INH Q6H PRN PRN Reason: SOB/WHEEZING Ascorbic Acid (Vitamin C Tab*) 1,000 mg PO DAILY [facility] Last Admin: 12/29/18 08:26 Dose: 1,000 mg Chlorhexidine Gluconate (Peridex Mouth Wash 0.12%*) 15 ml TOPICAL Q4H [facility] Last Admin: 12/29/18 08:02 Dose: 15 ml Dofetilide (Tikosyn Cap*) 125 mcg PO 0930,1430,2230 [facility] Last Admin: 12/29/18 08:26 Dose: 125 mcg Famotidine (Pepcid Susp 8mg/Ml) 20 mg PO DAILY [facility] Last Admin: 12/29/18 08:26 Dose: 20 mg Norepinephrine Bitartrate (Levophed 16 Mcg/Ml Premix Bag*) 4,000 mcg in 250 mls @ 18.75 mls/hr IV .INITIAL RATE [facility]; Protocol Last Admin: 12/29/18 09:48 Dose: 18.75 mls/hr Propofol (Diprivan*) 100 mls @ 0 mls/hr IV .(Initial Rate) [facility]; Protocol Last Admin: 12/29/18 08:31 Dose: 22.3 mls/hr Vancomycin HCl 1,250 mg/ (Sodium Chloride) 250 mls @ 166.667 mls/hr IVPB Q12H [facility] Last Admin: 12/29/18 04:45 Dose: 166.667 mls/hr Cefepime HCl (Maxipime 2 Gm In Dextrose Duplex (*)) 2 gm in 50 mls @ 100 mls/ hr IV Q12H [facility] Last Admin: 12/29/18 08:51 Dose: 100 mls/hr Fentanyl Citrate (Fentanyl Infusion Bag 50 Mcg/Ml 50 Ml) 2,500 mcg in 50 mls @ 0.2 mls/hr IV Q72H [facility]; Protocol Last Admin: 12/28/18 13:20 Dose: 0.2 mls/hr Vasopressin 100 units/ (Dextrose) 250 mls @ 6 mls/hr IV Q24H [facility]; Protocol Last Admin: 12/29/18 00:01 Dose: 6 mls/hr Levothyroxine Sodium (Synthroid Tab*) 75 mcg PO QAM@0600 [facility] Last Admin: 12/29/18 05:33 Dose: 75 mcg Magnesium Oxide (Magox 400 Tab*) 400 mg PO Q12HR [facility] Last Admin: 12/29/18 08:26 Dose: 400 mg Pharmacy Consult (Vancomycin Per Pharmacy*) 1 note FOLLOW UP . PRN PRN Reason: PER PROTOCOL Pharmacy Profile Note (Vancomycin Trough Check) 1 note FOLLOW UP 1530 ONE Stop: 12/29/18 15:31 Potassium Chloride (Potassium Chloride Liquid) 20 meq PO DAILY [facility] Last Admin: 12/29/18 08:26 Dose: 20 meq Rivaroxaban (Xarelto(*)) 20 mg PO 1700 [facility] Last Admin: 12/28/18 17:28 Dose: 20 mg Physical Exam: Constitutional: intubated, sedated, no distress, no diaphoresis Head: normocephalic, atraumatic Eyes: no pallor, no icterus ENT: moist mucous membranes Neck: soft, supple, no jvd CVS: normal rate, regular, no murmur Resp: bilateral air entry, mild left rhonchi+, no rhales, no wheeze, no acc muscle use Abdomen/GI: soft, nondistended, BS+ Ext/Msk: warm, pulses+, + edema Skin: intact, cool lower ext; right hand chronic changes/mottling; left arm edema chronic Neuro: sedated, intubated; pupils pinpoint bilaterally, limited exam Labs: Laboratory Results - last 24 hr 12/27/18 12/28/18 12/28/18 07:21 11:32 12:29 WBC RBC Hgb Hct MCV MCH MCHC RDW Plt Count MPV Hem Pathologist Commnt Sodium 127 L D 127 L Potassium Chloride Carbon Dioxide Anion Gap BUN Creatinine Est GFR ( Amer) Est GFR (Non-Af Amer) BUN/Creatinine Ratio Glucose Serum Osmolality Calcium Phosphorus Magnesium Troponin I 0.01 Urine Osmolality Ur Creatinine Concen U Sodium Concentration 12/28/18 12/28/18 12/28/18 16:07 17:07 17:07 WBC RBC Hgb Hct MCV MCH MCHC RDW Plt Count MPV Hem Pathologist Commnt Sodium 129 L Potassium 3.3 L Chloride 93 L Carbon Dioxide 29 Anion Gap 7 BUN 15 Creatinine 0.83 Est GFR ( Amer) 84.3 Est GFR (Non-Af Amer) 69.7 BUN/Creatinine Ratio 18.1 Glucose 221 H Serum Osmolality Calcium 7.8 L Phosphorus Magnesium Troponin I Urine Osmolality 198 Ur Creatinine Concen 31.96 U Sodium Concentration < 18 12/28/18 12/28/18 12/28/18 18:14 20:04 23:35 WBC RBC Hgb Hct MCV MCH MCHC RDW Plt Count MPV Hem Pathologist Commnt Sodium 125 L 121 L Potassium 3.2 L 3.3 L Chloride 91 L 89 L Carbon Dioxide 29 26 Anion Gap 5 6 BUN 14 12 Creatinine 0.83 0.77 Est GFR ( Amer) 84.3 91.9 Est GFR (Non-Af Amer) 69.7 76.0 BUN/Creatinine Ratio 16.9 15.6 Glucose 263 H 267 H Serum Osmolality 279 Calcium 7.5 L 7.4 L Phosphorus Magnesium 2.1 1.9 Troponin I Urine Osmolality Ur Creatinine Concen U Sodium Concentration 12/29/18 12/29/18 12/29/18 03:50 05:00 05:00 WBC 11.7 H RBC 4.56 Hgb 13.0 Hct 40 MCV 88 MCH 29 MCHC 33 RDW 14 Plt Count 130 L MPV 9.4 Hem Pathologist Commnt Sodium 123 L 122 L Potassium 3.8 Chloride 90 L Carbon Dioxide 26 Anion Gap 6 BUN 10 Creatinine 0.68 Est GFR ( Amer) 106.1 Est GFR (Non-Af Amer) 87.7 BUN/Creatinine Ratio 14.7 Glucose 176 H Serum Osmolality Calcium 7.7 L Phosphorus 1.5 L Magnesium 2.3 Troponin I Urine Osmolality Ur Creatinine Concen U Sodium Concentration 12/29/18 08:27 WBC RBC Hgb Hct MCV MCH MCHC RDW Plt Count MPV Hem Pathologist Commnt Sodium 122 L Potassium Chloride Carbon Dioxide Anion Gap BUN Creatinine Est GFR ( Amer) Est GFR (Non-Af Amer) BUN/Creatinine Ratio Glucose Serum Osmolality Calcium Phosphorus Magnesium Troponin I Urine Osmolality Ur Creatinine Concen U Sodium Concentration Imaging: CXr 12/28 - Right > left infiltrates are new and progressive in upper and lower lobes+ cxr 12/29 - ett above [place]; right sided infiltrates improved at base more Assessment: 63y F w/pmhx of Hodgkins Lymphoma [id number], s/p mediastinal RT, s/p relapse and ABVD , Afib on Xarelto, Left arm lymphedema, COPD, Pulm HTN, 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 She was admitted and started on IV diuretics, then upgraded to ICU for hypertonic 3% saline infusion on 12/27 for suspected symptomatic hyponatremia with nausea/vomitting. Her last sodium improved to 116. Overnight 12/27-12/28 developed inreasing respiratory distress, fever tmax 103, intubated for WOB and then change in mental status, then hypotensive, started on levophed infusion, no IVF bolus given previous volume overload state, IV abx with cefepime/vanco/flagyl, central lines placed. Noted to have tachycardia, irregular, wide complex appearing, but reverted to NSR after intubation. -Acute Hypoxic Respiratory failure, intubated 12/28 -Pneumonia on right -Enterococcus Bacteremia -Septic Shock -Neutropenic Sepsis -Mild thromboctyopenia -Severe symptomatic hyponatremia -LISA ?Decompensated CHF Breast Ca on Chemotherapy 12/21 Afib/flutter on Xarelto COPD, possible mild ILD from prior RT for NHL Plan: Neuro- -sedated on propofol and fentanyl; dec prop and sedation vacation to assess neuro status -chronic pain on percocet at home; cont fentanyl, can lower down based on neuro status -eventual restart PO percocet as needed once awake/extubated -daily sedation vacation; Delirium prec; avoid BDZ CVS- -septic shock ; underlying neutropenia ; gram + bacteremia and pneumonia+ -on levophed and vaso; dec levo requirements; will place arterial line if she doesnt show more imrpovement with pressors by afternoon, currently lowering levophed -maintain vasopressin for pressor and helping with polyuria -Na 122 now; off IVF, making 50cc/hr -may trial small dose lasix 10-20mg IV to augment free water output also -Aflutter+; less tachy; repeat EKG QTC 540s now with HR low 100s, noted yesterday to ahve qtc 590s with HR 120s+; on tikosyn , may require hold if qtc still markedly elevated. previoius EKG with qtc fluctuating with HR variability ; will trial lopressor later today to slow rate and if qtc is <500 with slower rate then no indication to change it/discontinue. she is not on other prolonging agents at this time either, reviewed med list. -cont Xarelto PO for Aflutter AC -Titrate Pressors to Maintain MAP>65 -IV abx -hold BB for hypotension Resp- -intubated on 30% fio2; sats 100% -mild secretions from ETT -wean sedation, may possibly attempt CPAP if alert and pressors low/stable -discussed with brother about PS trials -CXR 12/29 with improved right infiltrates -sputum with gram + and - growth; pending ID -IV abx -Wean Fio2 to keep sat>92% -Bronchodilators PRN, Aspiration prec, Pulmonary Toilet -VAP bundle ID- -afebrile, wbc incr to 11.5 from 1.5 -sputum culture pending ID -blood cx with enterococcus+, pending sensitivity -breast Ca, on chemo 12/21, s/p neulasta post chemo, now neutropenic -CXR 12/29 improving infiltrates on right -cont Cefepime 2gm IV q12h (day#2)(renal dosing), Vanco 1.25gm IV q12h (day#2) for enterococcus, with pharmacy dosing, check vanco level today -had mild diarrhea; c.diff neg, d/c flagyl yesterday GI- -NPO , possible weaning/waking trial; if no plan for extubation, will start TF later today -OGT+ -c.diff neg -GI prophylaxis as needed Renal- -LISA likely from hypotension/sepsis; Cr incr from 0.8 -significant polyuria yesterday, very dilute, with rapid rise in NA from 116 -ddavp improved this, vasopressin seems to have maintained this to 50cc/hr uop -no further ddavp now -Na 122, allow slow rise, may trial lasix 20mg alter today to augment urine output, has evidence of peripheral edema now -replete K and Phos IV, KPhos 15mmol -Mg okay -d/c Na check q4h; repeat BMP at 3pm -strict I/O, replete to keep K>4, Mg>2 -mishra as indicated Heme- -anemia; stable 04-21 -no bleeding -Mild thromboctyopenia 130s -neutropenic; now wbc to 11.5; s/p neulast 7 days back post chemo -Heme/Onc following for breast Ca -DVT proph with SCD/chemical (xarelto) Endo- Maintain BG<200, insulin protocol as needed. -cont synthroid po 75 mcg daily Musculsk- pressure ulcer prophylaxis. Bedrest. Wounds- none Nutrition- NPO, ogt+ DVT prophylaxis: SCD, xarelto po GI prophylaxis: h2b Central Line: left fem 12/28 Arterial Line: no Mishra Cathetor: yes 12/28 Disposition: Patient requires Critical Care/ICU for respiratory failure req intubation, septic shock on pressors, neutropenic sepsis, hyponatremia Patient Clinical Status: guarded, critical Code Status: full code Total Critical Care time is 45 minutes, excluding procedures/teaching Lawrence Sanchez MD [place] Operator (Electronically Signed)
[2018-12-29] MEDS ORDERED: CMCS:Oral Rinse (Biotene)(NF) 237 ML or 473 ML ORAL RINSE BTL MT PRN (11:38)
--- NOTE | 2018-12-29 12:40 | OP ---
Operative Report - Blank - Operative Report Date of Operation: 12/29/18 Note: Arterial Line Procedure Note Indication: frequent arterial blood gases , invasive hemodynamic monitoring Diagnosis: septic shock, acute hypoxic respiratory failure, pneumonia, enterococcus bacteremia, hyponatremia Performed by: Lawrence Sanchez MD Consent: [facility] [place] Protocol: Time-out was performed and the correct patient and site were verified - Prior labs/history was reviewed prior to procedure - Full sterile precautions with chlorhexidine/full drapes/gowns/gloves utilized - Left Femoral artery visualized with US - Vessel accessed with return of pulsatile blood. One attempt was made to access vessel. A cathetor was threaded over wire into vessel. Good arterial waveform was observed on monitor. - Arterial Catheter was sutured to site; dressing applied to site. EBL <5 cc No immediate complications noted, patient tolerated procedure well. Lawrence Sanchez MD Digital Communications Manager (Electronically Signed)
[2018-12-29 14:54] LABS: BUN/Creatinine Ratio 13.4 (8-20); Calcium 7.5 mg/dL (8.6-10.3); EGFR African American 107.9 (>60); EGFR Non-African American 89.2 (>60); Magnesium 1.9 mg/dL (1.9-2.7); Potassium 4.4 mmol/L (3.5-5.0)
[2018-12-29 14:55] LABS: Vancomycin Trough 15.4 mcg/mL
[2018-12-29] MEDS ORDERED: Vancomycin Trough Check NOTE FOLLOW UP ONE (15:30)
[2018-12-29] MEDS: Rivaroxaban TAB(*) 20 MG TAB PO SCH (16:13)
[2018-12-29] MEDS ORDERED: Furosemide IV* 10 MG/ML 2 ML VIAL (20 MG) IV ONE (17:05)
[2018-12-29] MEDS: Vancomycin(*) 1,000 MG in NS 0.9% 250 ML* 250 ML IVPB SCH ×2 (17:22→23:48)
[2018-12-29 23:02] LABS: BUN/Creatinine Ratio 15.3 (8-20); Calcium 7.6 mg/dL (8.6-10.3); EGFR Non-African American 103.3 (>60); Magnesium 1.8 mg/dL (1.9-2.7); Phosphorus 2.5 mg/dL (2.5-5.0); Potassium 3.8 mmol/L (3.5-5.0)
[2018-12-30] MEDS: Norepinephrine 16MCG/ML IVPRE* 4,000 MCG/250 ML BAG IV SCH (02:50)
[2018-12-30] MEDS: Propofol* 100 ML IV SCH (03:35)
[2018-12-30] MEDS: Chlorhexidine MOUTHWASH 0.12%* 15 ML UDC TOPICAL SCH ×3 (04:15→12:39)
[2018-12-30] MEDS: Vasopressin* 100 UNITS in D5W 250 ML BAG* 245 ML IV SCH ×2 (04:16→05:29)
[2018-12-30] MEDS: Acetaminophen ADULT LIQ* 650 MG/20.3 ML UDC PO SCH ×3 (05:29→09:52)
[2018-12-30] MEDS: Levothyroxine TAB* 75 MCG TAB PO SCH (05:29)
[2018-12-30 06:25] LABS: Hematocrit 34 % (35-47); Hemoglobin 11.5 g/dL (12.0-16.0); Mean Corpuscular HGB Conc 34 g/dL (31-36); Mean Corpuscular Hemoglobin 29 pg (27-31); Mean Corpuscular Volume 87 fL (80-97); Mean Platelet Volume 9.2 fL (7.4-10.4); Platelet Count 164 10^3/uL (150-450); Red Blood Count 3.91 10^6 /uL (3.70-4.87); Red Cell Distribution Width 15 % (10-15); White Blood Count 18.6 10^3/uL (3.5-10.8)
[2018-12-30 06:44] LABS: Calcium 7.7 mg/dL (8.6-10.3); EGFR African American 127.5 (>60); EGFR Non-African American 105.3 (>60); Magnesium 1.8 mg/dL (1.9-2.7); Phosphorus 2.2 mg/dL (2.5-5.0); Potassium 3.8 mmol/L (3.5-5.0)
[2018-12-30] MEDS: Vancomycin(*) 1,000 MG in NS 0.9% 250 ML* 250 ML IVPB SCH ×2 (08:24→18:34)
[2018-12-30] MEDS ORDERED: Potassium Phosphate IV* 30 MMOLE in NS 0.9% 250 ML* 250 ML IVPB ONE (08:53)
[2018-12-30] MEDS ORDERED: Magnesium Sulfate 2 GM IV* 2 GM/50 ML BAG IVPB ONE (08:53)
[2018-12-30] MEDS: Cefepime* 2 GM in Dextrose 50mL Q12H (Duplex) IV SCH (09:10)
[2018-12-30] MEDS: Ascorbic Acid TAB* 500 MG PO SCH ×2 (09:16→09:53)
[2018-12-30] MEDS: Famotidine SUSP ORALSYR 8 MG/ML PO SCH (09:17)
[2018-12-30] MEDS: Magnesium Oxide TAB* 400 MG PO SCH ×3 (09:17→23:29)
[2018-12-30] MEDS: Dofetilide CAP* 125 MCG PO SCH ×3 (09:53→23:36)
[2018-12-30] MEDS ORDERED: Acetaminophen ADULT LIQ* 650 MG/20.3 ML UDC PO PRN (11:37)
--- NOTE | 2018-12-30 11:54 | PN ---
Progress Note - Progress Note Date of Service: 12/30/18 Note: Progress Note -- Critical Care 24 hour events -some mucous plugging overnight with desaturation, suctioned out/lavaged; remains on 21% fio2, sats upper 90s -afebrile, tmax 99.9; on lower doses of levophed -remains on propofol and fentanyl; opens eyes and follows commands -making urine Tele: aflutter noted Vitals: Vital Signs Temp 98.8 F 12/30/18 11:00 Pulse 75 12/30/18 11:00 Resp 18 12/30/18 11:00 BP 94/50 12/30/18 11:00 Pulse Ox 92 12/30/18 11:00 Intake & Output 12/29/18 12/30/18 12/30/18 18:59 06:59 18:59 Intake Total 971 1446 0 Output Total 641 1215 170 Balance 330 231 -170 Weight 74.9 kg Intake: IV Fluids 103 447 NS 103 447 IVPB 323 348 Cefepime 63 100 NS 248 PB -Potassium Phosphate 260 Medicated IV 545 651 Levophed 347 404 Propofol 150 161 Vasopressin 48 86 Oral 0 Tube Feeding 0 Output: Mishra 641 1215 170 Tube Feeding Residual 0 Amount Wasted O2/Vent: AC 14/450/+5/21% Infusions: propofol 25, levophed 4, vasopressin 0.04 u/min, fentanyl 12.5mcg/hr Current Medications: Acetaminophen (Tylenol Adult Liq*) 650 mg PO Q6H PRN PRN Reason: fever >102 Albuterol (Ventolin Hfa Inhaler*) 2 puff INH Q6H PRN PRN Reason: SOB/WHEEZING Ascorbic Acid (Vitamin C Tab*) 1,000 mg PO DAILY [facility] Last Admin: 12/30/18 09:53 Dose: Not Given Chlorhexidine Gluconate (Peridex Mouth Wash 0.12%*) 15 ml TOPICAL Q4H [facility] Last Admin: 12/30/18 09:16 Dose: 15 ml Dofetilide (Tikosyn Cap*) 125 mcg PO 0930,1430,2230 [facility] Last Admin: 12/30/18 09:53 Dose: Not Given Famotidine (Pepcid Iv*) 20 mg IV SLOW PU DAILY [facility] Furosemide (Lasix Iv*) 40 mg IV ONCE ONE Stop: 12/30/18 12:01 Norepinephrine Bitartrate (Levophed 16 Mcg/Ml Premix Bag*) 4,000 mcg in 250 mls @ 18.75 mls/hr IV .INITIAL RATE Á[facility]ARO; Protocol Last Admin: 12/30/18 02:50 Dose: 18.75 mls/hr Propofol (Diprivan*) 100 mls @ 0 mls/hr IV .(Initial Rate) ÁLVARO; Protocol Last Admin: 12/30/18 03:35 Dose: 11.1 mls/hr Cefepime HCl (Maxipime 2 Gm In Dextrose Duplex (*)) 2 gm in 50 mls @ 100 mls/ hr IV Q12H [facility] Last Admin: 12/30/18 09:10 Dose: 100 mls/hr Fentanyl Citrate (Fentanyl Infusion Bag 50 Mcg/Ml 50 Ml) 2,500 mcg in 50 mls @ 0.2 mls/hr IV Q72H [facility]; Protocol Last Admin: 12/28/18 13:20 Dose: 0.2 mls/hr Vasopressin 100 units/ (Dextrose) 250 mls @ 6 mls/hr IV Q24H ÁLVARO; Protocol Last Admin: 12/30/18 05:29 Dose: 6 mls/hr Vancomycin HCl 1,000 mg/ (Sodium Chloride) 250 mls @ 166.667 mls/hr IVPB Q8H [facility] Last Admin: 12/30/18 08:24 Dose: 166.667 mls/hr Potassium Phosphate 30 mmole/ (Sodium Chloride) 260 mls @ 42 mls/hr IVPB ONCE ONE Stop: 12/30/18 15:04 Last Admin: 12/30/18 11:07 Dose: 42 mls/hr Levothyroxine Sodium (Synthroid Tab*) 75 mcg PO QAM@0600 [facility] Last Admin: 12/30/18 05:29 Dose: 75 mcg Magnesium Oxide (Magox 400 Tab*) 400 mg PO Q12HR [facility] Last Admin: 12/30/18 09:53 Dose: Not Given Multi-Ingredient Mouthwash/Gargle (Biotene Dry Mouth Oral Rinse(Nf)) 5 ml MT Q2H PRN PRN Reason: DRY MOUTH Last Admin: 12/29/18 16:13 Dose: 5 ml Pharmacy Consult (Vancomycin Per Pharmacy*) 1 note FOLLOW UP . PRN PRN Reason: PER PROTOCOL Pharmacy Profile Note (Vancomycin Trough Check) 1 note FOLLOW UP 1600 ONE Stop: 12/30/18 16:01 Rivaroxaban (Xarelto(*)) 20 mg PO 1700 [facility] Last Admin: 12/29/18 16:13 Dose: 20 mg Physical Exam: Constitutional: intubated, sedated but easily arousable, no distress, no diaphoresis Head: normocephalic, atraumatic Eyes: no pallor, no icterus ENT: moist mucous membranes Neck: soft, supple, no jvd CVS: normal rate, regular, no murmur Resp: bilateral air entry, mild left rhonchi+, no rhales, no wheeze, no acc muscle use Abdomen/GI: soft, nondistended, BS+ Ext/Msk: warm, pulses+, + edema Skin: intact, cool lower ext; right hand chronic changes/mottling; left arm edema chronic Neuro: sedated, intubated; pupils pinpoint bilaterally, limited exam Labs: Laboratory Results - last 24 hr 12/29/18 12/29/18 12/29/18 14:20 15:49 22:35 WBC RBC Hgb Hct MCV MCH MCHC RDW Plt Count MPV Patient Temperature Not Reportable ABG pH 7.43 ABG pH (Temp Correct) Not Reportable ABG pCO2 35 ABG pCO2 (Temp Corrct Not Reportable ABG pO2 86 ABG pO2 (Temp Correct Not Reportable ABG HCO3 24.4 ABG O2 Saturation 98.4 H ABG Base Excess -0.6 Respiration Rate 16 Ventilator Type Not Reportable Vent Mode Apvcmv FiO2 21 Inspiratory Time Not Reportable PEEP 5 Pressure Support Not Reportable Pressure Control Not Reportable EPAP Not Reportable IPAP Not Reportable BiPAP Not Reportable Sodium 122 L 123 L Potassium 4.4 3.8 Chloride 90 L 92 L Carbon Dioxide 26 25 Anion Gap 6 6 BUN 9 9 Creatinine 0.67 0.59 Est GFR ( Amer) 107.9 125.0 Est GFR (Non-Af Amer) 89.2 103.3 BUN/Creatinine Ratio 13.4 15.3 Glucose 186 H 174 H Calcium 7.5 L 7.6 L Phosphorus 2.0 L 2.5 Magnesium 1.9 1.8 L Vancomycin Trough 15.4 12/30/18 12/30/18 06:15 06:15 WBC 18.6 H RBC 3.91 Hgb 11.5 L Hct 34 L MCV 87 MCH 29 MCHC 34 RDW 15 Plt Count 164 MPV 9.2 Patient Temperature ABG pH ABG pH (Temp Correct) ABG pCO2 ABG pCO2 (Temp Corrct ABG pO2 ABG pO2 (Temp Correct ABG HCO3 ABG O2 Saturation ABG Base Excess Respiration Rate Ventilator Type Vent Mode FiO2 Inspiratory Time PEEP Pressure Support Pressure Control EPAP IPAP BiPAP Sodium 125 L Potassium 3.8 Chloride 92 L Carbon Dioxide 25 Anion Gap 8 BUN 11 Creatinine 0.58 Est GFR ( Amer) 127.5 Est GFR (Non-Af Amer) 105.3 BUN/Creatinine Ratio 19.0 Glucose 185 H Calcium 7.7 L Phosphorus 2.2 L Magnesium 1.8 L Vancomycin Trough Imaging: CXr 12/28 - Right > left infiltrates are new and progressive in upper and lower lobes+ cxr 12/29 - ett above [place]; right sided infiltrates improved at base more Assessment: 63y F w/pmhx of Hodgkins Lymphoma [id number], s/p mediastinal RT, s/p relapse and ABVD , Afib on Xarelto, Left arm lymphedema, COPD, Pulm HTN, Left breast ductal Ca ER/VT+ and HER2- 04/2018 s/p mastectomy on chemotherapy ( 1st 12/21, given neulasta also), hypothyroidism; admitted 12/26 for cough, mild sputum production, noted to have severe hyponatremia 112, signs of volume overload with increased weight secondary to increased PO water intake and stopping diuretics after last chemo session. She was admitted and started on IV diuretics, then upgraded to ICU for hypertonic 3% saline infusion on 12/27 for suspected symptomatic hyponatremia with nausea/vomitting. Her last sodium improved to 116. Overnight 12/27-12/28 developed inreasing respiratory distress, fever tmax 103, intubated for WOB and then change in mental status, then hypotensive, started on levophed infusion, no IVF bolus given previous volume overload state, IV abx with cefepime/vanco/flagyl, central lines placed. Noted to have tachycardia, irregular, wide complex appearing, but reverted to NSR after intubation. -Acute Hypoxic Respiratory failure, intubated 12/28 -MSSA pneumonia on right -Enterococcus Bacteremia -Septic Shock -Neutropenic Sepsis -Mild thromboctyopenia -Severe symptomatic hyponatremia -LISA ?Decompensated CHF Breast Ca on Chemotherapy 12/21 Afib/flutter on Xarelto COPD, possible mild ILD from prior RT for NHL Plan: Neuro- -sedated on propofol and fentanyl; lowering propofol for waking, maintain low dose fentanyl, may also need to be held if not waking -plan for PS trial this morning -chronic pain on percocet at home; cont fentanyl, can lower down based on neuro status -eventual restart PO percocet as needed once awake/extubated -daily sedation vacation; Delirium prec; avoid BDZ CVS- -septic shock ; underlying neutropenia ; 07/15 enterococcus feacalis bacteremia and MSSA pneumonia -check TTE today to r/o any endocarditis -lower levophed ; dec vaso to 0.03 -maintain vasopressin for pressor and helping with polyuria -making urine 30-50cc/hr -Na 125 -replete K, Phos, Mg; lasix 40mg IV x1 today -Aflutter+; less tachy; repeat EKG QTC 540 12/30 with HR 80s; will hold tikosyn today; repeat EKG tomorrow -cont Xarelto PO for Aflutter AC -Titrate Pressors to Maintain MAP>65 -IV abx -hold BB for hypotension Resp- -intubated on 21% fio2; sats 95+% -very mild secretions from ETT -no further mucous plugging since last night -CXR today -once awake, CPAP trial for extubation, discussed with repiratory therapist -CXR 12/29 with improved right infiltrates -sputum with MSSA 3+ -IV abx -Wean Fio2 to keep sat>92% -Bronchodilators PRN, Aspiration prec, Pulmonary Toilet -VAP bundle ID- -afebrile, wbc incr to 11.5 - 18 -sputum MSSA 3+ -blood cx 07/15 enteroccocus feacalis+; pansensitive -check TTE for endocarditis -if no vegetations; likely to change to IV Zosyn for Enterococcus and MSSA coverage -breast Ca, on chemo 12/21, s/p neulasta post chemo, now neutropenic -Incr Cefepime 2gm IV q8h (day#3); Vanco 1.25gm IV q12h (day#3) for enterococcus , with pharmacy dosing; last trough 15 -if no vegetations, will narrow Abx to Zosyn -had mild diarrhea; c.diff neg GI- -NPO , weaning this afternoon, otherwise plan for TF today, discussed with nursing -replace OGT today, previious OGT clogged this morning -c.diff neg -GI prophylaxis as needed Renal- -LISA likely from hypotension/sepsis; Cr normalized -making urine -dec vasopressin 0.03; re-eval outout -replete K, Phos, Mg IV -no further ddavp needed -Na to 125 now; s/p lasix 20mg IV x1 yesterday -redose lasix 40mg IV x1 today -strict I/O, replete to keep K>4, Mg>2 -mishra as indicated Heme- -anemia; stable 04-21 -no bleeding -plt improving -neutropenic; now wbc increasing, 11.5-18; s/p neulast 7 days back post chemo, and now with sepsis as response -Heme/Onc following for breast Ca -DVT proph with SCD/chemical (xarelto) Endo- Maintain BG<200, insulin protocol as needed. -cont synthroid po 75 mcg daily Musculsk- pressure ulcer prophylaxis. Bedrest. Wounds- none Nutrition- NPO DVT prophylaxis: SCD, xarelto po GI prophylaxis: h2b Central Line: left fem 12/28 Arterial Line: left fem 12/29 Mishra Cathetor: yes 12/28 Disposition: Patient requires Critical Care/ICU for respiratory failure req intubation, septic shock on pressors, neutropenic sepsis, hyponatremia Patient Clinical Status: guarded, critical Code Status: full code Total Critical Care time is 45 minutes, excluding procedures/teaching Lawrence Sanchez MD Nonprofit Manager (Electronically Signed)
[2018-12-30] MEDS ORDERED: Furosemide IV* 10 MG/ML VIAL (40 MG) IV ONE (12:00)
[2018-12-30] MEDS ORDERED: Perflutren Lipid Microsphere* 3 ML VIAL ONE (15:03)
[2018-12-30] MEDS ORDERED: Vancomycin Trough Check NOTE FOLLOW UP ONE (16:00)
--- NOTE | 2018-12-30 17:39 | PN ---
Progress Note - Progress Note Date of Service: 12/30/18 SOAP: Subjective: [Patient intubated, but sedation lifted this morning and patient is now following commands. Preparing for extubation later today.] Objective: [ Acetaminophen (Tylenol Adult Liq*) 650 mg PO Q6H PRN PRN Reason: fever >102 Albuterol (Ventolin Hfa Inhaler*) 2 puff INH Q6H PRN PRN Reason: SOB/WHEEZING Ascorbic Acid (Vitamin C Tab*) 1,000 mg PO DAILY [facility] Last Admin: 12/30/18 09:53 Dose: Not Given Chlorhexidine Gluconate (Peridex Mouth Wash 0.12%*) 15 ml TOPICAL Q4H [facility] Last Admin: 12/30/18 12:39 Dose: Not Given Dofetilide (Tikosyn Cap*) 125 mcg PO 0930,1430,2230 [facility] Last Admin: 12/30/18 15:56 Dose: Not Given Famotidine (Pepcid Iv*) 20 mg IV SLOW PU DAILY [facility] Norepinephrine Bitartrate (Levophed 16 Mcg/Ml Premix Bag*) 4,000 mcg in 250 mls @ 18.75 mls/hr IV .INITIAL RATE Á[facility]; Protocol Last Admin: 12/30/18 02:50 Dose: 18.75 mls/hr Propofol (Diprivan*) 100 mls @ 0 mls/hr IV .(Initial Rate) [facility]; Protocol Last Admin: 12/30/18 03:35 Dose: 11.1 mls/hr Fentanyl Citrate (Fentanyl Infusion Bag 50 Mcg/Ml 50 Ml) 2,500 mcg in 50 mls @ 0.2 mls/hr IV Q72H [facility]; Protocol Last Admin: 12/28/18 13:20 Dose: 0.2 mls/hr Vasopressin 100 units/ (Dextrose) 250 mls @ 6 mls/hr IV Q24H [facility]; Protocol Last Admin: 12/30/18 05:29 Dose: 6 mls/hr Vancomycin HCl 1,000 mg/ (Sodium Chloride) 250 mls @ 166.667 mls/hr IVPB Q8H [facility] Last Admin: 12/30/18 08:24 Dose: 166.667 mls/hr Cefepime HCl (Maxipime 2 Gm In Dextrose Duplex (*)) 2 gm in 50 mls @ 100 mls/ hr IV Q8H [facility] Levothyroxine Sodium (Synthroid Tab*) 75 mcg PO QAM@0600 [facility] Last Admin: 12/30/18 05:29 Dose: 75 mcg Magnesium Oxide (Magox 400 Tab*) 400 mg PO Q12HR [facility] Last Admin: 12/30/18 09:53 Dose: Not Given Multi-Ingredient Mouthwash/Gargle (Biotene Dry Mouth Oral Rinse(Nf)) 5 ml MT Q2H PRN PRN Reason: DRY MOUTH Last Admin: 12/29/18 16:13 Dose: 5 ml Pharmacy Consult (Vancomycin Per Pharmacy*) 1 note FOLLOW UP . PRN PRN Reason: PER PROTOCOL Rivaroxaban (Xarelto(*)) 20 mg PO 1700 [facility] Last Admin: 12/29/18 16:13 Dose: 20 mg Laboratory Results - last 24 hr 12/29/18 12/30/18 12/30/18 22:35 06:15 06:15 WBC 18.6 H RBC 3.91 Hgb 11.5 L Hct 34 L MCV 87 MCH 29 MCHC 34 RDW 15 Plt Count 164 MPV 9.2 Sodium 123 L 125 L Potassium 3.8 3.8 Chloride 92 L 92 L Carbon Dioxide 25 25 Anion Gap 6 8 BUN 9 11 Creatinine 0.59 0.58 Est GFR ( Amer) 125.0 127.5 Est GFR (Non-Af Amer) 103.3 105.3 BUN/Creatinine Ratio 15.3 19.0 Glucose 174 H 185 H Calcium 7.6 L 7.7 L Phosphorus 2.5 2.2 L Magnesium 1.8 L 1.8 L Vital Signs: Temp Pulse Resp BP Pulse Ox 99.1 F 104 24 111/72 94 12/30/18 15:45 12/30/18 15:45 12/30/18 15:00 12/30/18 15:45 12/30/18 17:26 Exam: Gen: Ill appearing 63 yo female who is intubated, but alert HEENT: ET tube CV: RRR, no m/r/g Resp: few rhonchorous sounds, intubated Abd: soft, active BS Ext: LUE edema (chronic), trace LE edema Skin: no rashes/lesions Neuro: alert, follows commands and conversation] [Assessment: 63 yo F w remote hodgkin's disease sp ABVD/mediastinal RT w course c/b pneumonitis, pHTN, r brachial plexopathy and left lymphedema, now with T2N1M0 ER + IDC sp cycle 1 of Taxotere/cytoxan admitted with profound hyponatremia and quickly developed respiratory distress, febrile neutropenia and hypotension. Now intubated on pressors with enterobacter bacteremia and MSSA PNA. Plan: febrile neutropenia with septic shock: - early development despite growth factor support, ?from prior chemotherapy use - neutropenia has now resolved now with leukocytosis which is expected from Neulasta admininstration Respiratory failure: - intubated, expect extubation today - management per intensitivist Enterobacter bacteremia: - source unclear - check TTE to eval for vegetations - cont Cefepime/Vanco - management reviewed between ID and java developer analyst MSSA PNA: - sputum grew MSSA - cont Vanco DI-like picture: - unclear etiology, ?due to sepsis - Na stable/improving now - positive fluid balance over the last couple of days oncology will continue to follow very closely and will take over care when appropriate for dc from ICU
[2018-12-30] MEDS ORDERED: HYDROmorphone INJ* 0.5 MG/0.5 ML SYRINGE IV SLOW PU PRN (17:48)
[2018-12-30] MEDS: Rivaroxaban TAB(*) 20 MG TAB PO SCH (17:59)
[2018-12-30] MEDS ORDERED: Vasopressin* 100 UNITS in D5W 250 ML BAG* 245 ML IV SCH (18:00)
[2018-12-30] MEDS: Cefepime 2 GM in Dextrose(*) 2 GM/50 ML BAG IV SCH (18:06)
--- NOTE | 2018-12-30 19:08 | ECHO ---
*[facility]* [place] [address] Fax #: [phone] Transthoracic Echocardiogram Patient: Layton, Height: 66 in / Kallie Bangura 167.6 cm : 1955 Weight: 164.7 lb / Study Date: 12/30/2018 74.8 kg Age: 63 BP: 137 / 68 Gender: F BMI/BSA: 26.6 kg/m^2 HR: 96 bpm / 1.84 m^2 *Supervisor Smoke Control: * Sonja Rosales RDCS RN *Referring Physician: * Lawrence Sanchez *Reading Physician: * Real Storey MD Indications: Bacteremia. History: Atrial fibrillation. Chronic obstructive pulmonary disease. PHTN. Hodgkin's lymphoma. Left breast cancer with mastectomy and radiation therapy. Chronic pleural effusion. Risk factors: Former tobacco use. Labs, prior tests, procedures, and surgery: Permanent pacemaker system implantation. Conclusions Summary: 1. Left ventricle: Systolic function is normal. The estimated ejection fraction is 55-60%. 2. Right ventricle: Not well visualized. Pacer wire noted in the right ventricle. The estimated peak pressure is 42 mm Hg. 3. Ventricular septum: The interventricular septum appears dyssynchronous due to LBBB 4. Mitral valve: The findings are consistent with mild stenosis. There is mild regurgitation. 5. Tricuspid valve: Not well visualized. There is mild regurgitation. 6. Pulmonary arteries: Systolic pressure is mildly increased, estimated to be 42 mm Hg. 7. Aortic valve: The findings are consistent with mild stenosis that may be underestimated in severity (could be worse ) Recommendations: Fair quality study. Compared to prior 06/2017, findings are similar, right ventricle not well visualized this study Study data: Transthoracic echocardiogram. Procedure: Transthoracic echocardiography was performed. Image quality was fair. The study was technically limited due to patient on ventilator, COPD, and smoking history. The patient refused the use of Definity for image enhancement. Complete 2D, spectral Doppler, and color flow Doppler. Patient status: Inpatient. Patient room number: ICU 8. Rhythm: Normal sinus rhythm. Findings Left ventricle: The cavity size is normal. Wall thickness is normal. Systolic function is normal. The estimated ejection fraction is 55-60%. There are no regional wall motion abnormalities. Abnormal diastolic filling. Right ventricle: Not well visualized. Pacer wire noted in the right ventricle. The estimated peak pressure is 42 mm Hg. Ventricular septum: The interventricular septum appears dyssynchronous due to LBBB Left atrium: Not well visualized. The atrium is normal in size. Right atrium: Not visualized. Mitral valve: The annulus is moderately calcified. The leaflets are mildly thickened and moderately calcified. The findings are consistent with mild stenosis. There is mild regurgitation. Aortic valve: Not well visualized. The leaflets are moderately thickened and mildly calcified. The findings are consistent with mild stenosis that may be underestimated in severity (could be worse ) There is trace to mild regurgitation. Tricuspid valve: Not well visualized. There is mild regurgitation. Pulmonic valve: The valve is structurally normal. There is no evidence of stenosis. There is trace regurgitation. Aorta: Aortic root: The aortic root is not dilated. Ascending aorta: The ascending aorta is not dilated. Aortic arch: The aortic arch is not dilated. Pericardium: There is no pericardial effusion. Pulmonary arteries: Systolic pressure is mildly increased, estimated to be 42 mm Hg. Systemic veins: Inferior vena cava: Well visualized. The size and respiratory change could not be determined as the patient was on mechanical ventilation. Measurements Left ventricle Value Ref Mitral valve Value Ref BOY, LAX 4.2 cm 3.8 - 5.2 Peak E 1.36 m/sec ----- ESD, LAX 3.1 cm 2.2 - 3.5 Peak A 1.14 m/sec ----- FS, LAX 28 % 27 - 45 Decel time 215 ms ----- PW, ED, LAX 0.8 cm 0.6 - 0.9 Mean grad, D 2.9 mm Hg ----- IVS/PW, ED 1.19 --------- Peak grad, D 7.5 mm Hg ----- DFT 390 ms --------- Peak E/A ratio 1.2 ----- LVOT Value Ref Pulmonic valve Value Ref Diam, S 2.00 cm --------- Peak v, S 0.71 m/sec ----- Area 3.1 cm^2 --------- Peak grad, S 2.0 mm Hg ----- Peak mehnaz, S 0.91 m/sec --------- VTI, S 17.7 cm --------- Tricuspid valve Value Ref Mean grad, S 2 mm Hg --------- TR peak v (H) 2.92 m/sec <=2.8 SV 45 ml --------- Peak RV-RA grad, S 34 mm Hg ----- Max TR mehnaz 2.92 m/sec ----- Ventricular septum Value Ref IVS, ED 0.9 cm 0.6 - 0.9 Aortic root Value Ref Root diam 3.1 cm <4.0 Right ventricle Value Ref Pressure, S 42 mm Hg --------- Ascending aorta Value Ref AAo AP diam, S 3.0 cm ----- Right atrium Value Ref Estimated RAP 8 mm Hg --------- Aortic arch Value Ref Arch diam 2.3 cm ----- Aortic valve Value Ref Susanne diam, ED 2.0 cm --------- Pulmonary artery Value Ref Susanne diam/bsa, ED 1.1 cm/m^2 --------- Pressure, S 40.0 mm Hg ----- Peak v, S 1.9 m/sec --------- VTI, S 34.0 cm --------- Inferior vena cava Value Ref Mean grad, S 9.0 mm Hg --------- Diam 1.7 cm ----- Peak grad, S 14.0 mm Hg --------- LVOT/AV, VTI ratio 0.52 --------- MARYLOU, VTI 1.64 cm^2 --------- MARYLOU, Vmax 1.50 cm^2 --------- Legend: (L) and (H) kirsten values outside specified reference range. Prepared and electronically signed by Real Storey MD 12/30/2018 19:08
[2018-12-30 21:01] LABS: BUN/Creatinine Ratio 20.3 (8-20); Calcium 7.8 mg/dL (8.6-10.3); EGFR Non-African American 103.3 (>60); Potassium 3.9 mmol/L (3.5-5.0)
[2018-12-30] MEDS ORDERED: Furosemide IV* 10 MG/ML 2 ML VIAL (20 MG) IV ONE (22:40)
[2018-12-31] MEDS: Cefepime 2 GM in Dextrose(*) 2 GM/50 ML BAG IV SCH ×2 (01:12→10:48)
[2018-12-31 06:08] LABS: Hematocrit 32 % (35-47); Hemoglobin 10.8 g/dL (12.0-16.0); Mean Corpuscular HGB Conc 34 g/dL (31-36); Mean Corpuscular Hemoglobin 30 pg (27-31); Mean Corpuscular Volume 87 fL (80-97); Mean Platelet Volume 8.6 fL (7.4-10.4); Platelet Count 176 10^3/uL (150-450); Red Blood Count 3.65 10^6 /uL (3.70-4.87); Red Cell Distribution Width 15 % (10-15); White Blood Count 24.9 10^3/uL (3.5-10.8)
[2018-12-31 06:26] LABS: EGFR African American 135.5 (>60); Magnesium 2.1 mg/dL (1.9-2.7); Phosphorus 2.5 mg/dL (2.5-5.0); Potassium 3.6 mmol/L (3.5-5.0)
[2018-12-31] MEDS: Ascorbic Acid TAB* 500 MG PO SCH (07:32)
[2018-12-31] MEDS: Magnesium Oxide TAB* 400 MG PO SCH ×2 (07:32→20:13)
[2018-12-31] MEDS: Levothyroxine TAB* 75 MCG TAB PO SCH (07:32)
[2018-12-31] MEDS: Dofetilide CAP* 125 MCG PO SCH ×3 (07:32→21:28)
[2018-12-31] MEDS: Chlorhexidine MOUTHWASH 0.12%* 15 ML UDC TOPICAL SCH (07:36)
[2018-12-31] MEDS: KCL 20 MEQ/100 ML IVPREMIX* 20 MEQ/100 ML BAG IV SCH ×2 (09:05→11:24)
[2018-12-31] MEDS: Vancomycin(*) 1,250 MG in NS 0.9% 250 ML* 250 ML IVPB SCH ×2 (09:05→20:13)
[2018-12-31] MEDS: Famotidine IV* 10 MG/ML 2 ML (20 mg) IV SLOW PU SCH (09:07)
[2018-12-31] MEDS ORDERED: Furosemide IV* 10 MG/ML 2 ML VIAL (20 MG) IV ONE (13:53)
[2018-12-31] MEDS ORDERED: Albuterol 2.5 MG/3 ML NEB.SOL* (0.083%) INH PRN (13:54)
[2018-12-31] MEDS ORDERED: KCL 20 MEQ/100 ML IVPREMIX* 20 MEQ/100 ML BAG IV SCH (14:00)
--- NOTE | 2018-12-31 14:05 | PN ---
Progress Note - Progress Note Date of Service: 12/31/18 Note: Progress Note -- Critical Care 24 hour events -awake, alert; extubated yesterday to [place] -on hiflow 40% 25lpm now -mild wheeze/rhonchi; cough+, sputum+ -off pressors, making urine Tele: aflutter noted Vitals: Vital Signs Temp 99.0 F 12/31/18 13:00 Pulse 100 12/31/18 13:00 Resp 23 12/31/18 13:00 BP 124/81 12/31/18 13:00 Pulse Ox 100 12/31/18 13:00 Intake & Output 12/30/18 12/31/18 12/31/18 18:59 06:59 18:59 Intake Total 23 1891.8 0 Output Total 1850 970 840 Balance -1827 921.8 -840 Weight 75.8 kg Intake: IV Fluids 1325 NS 1325 IVPB 167 NS 167 Medicated IV 376.8 Levophed 168 Propofol 68 Vasopressin 140.8 IV Narcotic Infusion 23 23 Fentanyl 23 23 Oral 0 0 Output: Mishra 1850 970 490 Liquid Stool 350 Other: Date of Last Bowel t Movement # Bowel Movements 1 1 Estimated Stool Amount Medium Small Medium O2/Vent: hiflow 40% 25lpm Infusions: heplock Current Medications: Acetaminophen (Tylenol Adult Liq*) 650 mg PO Q6H PRN PRN Reason: fever >102 Albuterol (Ventolin Hfa Inhaler*) 2 puff INH Q6H PRN PRN Reason: SOB/WHEEZING Ascorbic Acid (Vitamin C Tab*) 1,000 mg PO DAILY [facility] Last Admin: 12/31/18 07:32 Dose: Not Given Dofetilide (Tikosyn Cap*) 125 mcg PO 0930,1430,2230 [facility] Last Admin: 12/31/18 13:38 Dose: Not Given Famotidine (Pepcid Iv*) 20 mg IV SLOW PU DAILY [facility] Last Admin: 12/31/18 09:07 Dose: 20 mg Hydromorphone HCl (Dilaudid Inj*) 0.5 mg IV SLOW PU Q6H PRN PRN Reason: PAIN Last Admin: 12/31/18 11:44 Dose: 0.5 mg Vancomycin HCl 1,250 mg/ (Sodium Chloride) 250 mls @ 166.667 mls/hr IVPB Q12H [facility] Stop: 01/03/19 23:59 Last Admin: 12/31/18 09:05 Dose: 166.667 mls/hr Levothyroxine Sodium (Synthroid Tab*) 75 mcg PO QAM@0600 [facility] Last Admin: 12/31/18 07:32 Dose: Not Given Magnesium Oxide (Magox 400 Tab*) 400 mg PO Q12HR [facility] Last Admin: 12/31/18 07:32 Dose: Not Given Multi-Ingredient Mouthwash/Gargle (Biotene Dry Mouth Oral Rinse(Nf)) 5 ml MT Q2H PRN PRN Reason: DRY MOUTH Last Admin: 12/29/18 16:13 Dose: 5 ml Pharmacy Consult (Vancomycin Per Pharmacy*) 1 note FOLLOW UP . PRN PRN Reason: PER PROTOCOL Pharmacy Profile Note (Vancomycin Trough Check) 1 note FOLLOW UP 08 ONE Stop: 01/02/19 08:31 Rivaroxaban (Xarelto(*)) 20 mg PO 1700 [facility] Last Admin: 12/30/18 17:59 Dose: Not Given Physical Exam: Constitutional: awake, alert, mild tachypnea+, no diaphoresis Head: normocephalic, atraumatic Eyes: no pallor, no icterus ENT: moist mucous membranes Neck: soft, supple, no jvd CVS: normal rate, regular, no murmur Resp: bilateral air entry, left rhonchi+ and mild wheeze+, no rhales, no acc muscle use Abdomen/GI: soft, nondistended, BS+ Ext/Msk: warm, pulses+, + edema Skin: intact, cool lower ext; right hand chronic changes/mottling; left arm edema chronic Neuro: awake, alert, follows commands, orientedx3 Labs: Laboratory Results - last 24 hr 12/30/18 12/30/18 12/31/18 17:37 20:39 05:59 WBC RBC Hgb Hct MCV MCH MCHC RDW Plt Count MPV Sodium 128 L 131 L Potassium 3.9 3.6 Chloride 93 L 94 L Carbon Dioxide 31 33 H Anion Gap 4 4 BUN 12 11 Creatinine 0.59 0.55 Est GFR ( Amer) 125.0 135.5 Est GFR (Non-Af Amer) 103.3 112.0 BUN/Creatinine Ratio 20.3 H 20.0 Glucose 145 H 87 Calcium 7.8 L 8.0 L Phosphorus 2.5 Magnesium 2.1 Vancomycin Trough 19.9 12/31/18 05:59 WBC 24.9 H RBC 3.65 L Hgb 10.8 L Hct 32 L MCV 87 MCH 30 MCHC 34 RDW 15 Plt Count 176 MPV 8.6 Sodium Potassium Chloride Carbon Dioxide Anion Gap BUN Creatinine Est GFR ( Amer) Est GFR (Non-Af Amer) BUN/Creatinine Ratio Glucose Calcium Phosphorus Magnesium Vancomycin Trough Imaging: CXr 12/28 - Right > left infiltrates are new and progressive in upper and lower lobes+ cxr 12/29 - ett above k[place]; right sided infiltrates improved at base more cxr 12/30 - improving infitlrates TTE 12/30 - normal LV function, no vegetations noted Assessment: 63y F w/pmhx of Hodgkins Lymphoma [id number], s/p mediastinal RT, s/p relapse and ABVD , Afib on Xarelto, Left arm lymphedema, COPD, Pulm HTN, 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 She was admitted and started on IV diuretics, then upgraded to ICU for hypertonic 3% saline infusion on 12/27 for suspected symptomatic hyponatremia with nausea/vomitting. Her last sodium improved to 116. Overnight 12/27-12/28 developed inreasing respiratory distress, fever tmax 103, intubated for WOB and then change in mental status, then hypotensive, started on levophed infusion, no IVF bolus given previous volume overload state, IV abx with cefepime/vanco/flagyl, central lines placed. Noted to have tachycardia, irregular, wide complex appearing, but reverted to NSR after intubation. -Acute Hypoxic Respiratory failure, intubated 12/28; ext 12/31 -MSSA pneumonia on right -Enterococcus Bacteremia -Septic Shock, improved -Neutropenic Sepsis -Mild thromboctyopenia -Severe symptomatic hyponatremia -LISA ?Decompensated CHF Breast Ca on Chemotherapy 12/21 Afib/flutter on Xarelto COPD, possible mild ILD from prior RT for NHL Plan: Neuro- -awake, alert, follows commands -chronic pain on percocet at home; dilaudid IV prn for now -eventual restart PO percocet as needed -Delirium prec; avoid BDZ CVS- -shock resolved; off pressors -making urine; repeat lasix 20mg IV x1 for anasarca -IV abx -TTE 12/30 without vegetations noted -replete KCL IV -Aflutter+; repeat EKG QTC 518 12/31 with HR mild tachy; will hold tikosyn today ; repeat EKG tomorrow -cont Xarelto PO for Aflutter AC -Maintain MAP>65 -hold BB for now Resp- -some resp distress overnight; on hiflow now 40% 25lpm -check CXR now -bronchodilator neb q4h prn -no steroids indicated yet -coughing up brown/bloody secretions -chest PT q4h WA -IV abx -Wean Fio2 to keep sat>92% -Bronchodilators PRN, Aspiration prec ID- -afebrile, tmax 99, wbc incr to 11.5 - 18 - 24 -sputum MSSA 3+ -blood cx 1/ enteroccocus feacalis+; pansensitive -TTE no vegetations 12/30 -suspect enterococcus was transient bacteremia -repeat Blood cx x2 to make sure of clearance -breast Ca, on chemo 12/21, s/p neulasta post chemo, now neutropenic -d/.c cefepime (day#4); will cont Vanco 1.25gm IV q12h (pharmacy dosing) (day#4 ) for total 7 days for cover enterococcus and MSSA GI- -NPO; swallow bedside; if passed can start soft or puree diet -c.diff neg -GI prophylaxis as needed Renal- -LISA likely from hypotension/sepsis; Cr normalized -making urine -replete KCL IV -Na improving post diuresis -repeat lasix 20mg IV x1 -strict I/O, replete to keep K>4, Mg>2 -mishra as indicated Heme- -anemia; stable 04-21 -no bleeding -plt improving -neutropenic; now wbc increasing, 11.5-18-24; s/p neulast >7 days back post chemo, and now with sepsis as response -Heme/Onc following for breast Ca -DVT proph with SCD/chemical (xarelto) Endo- Maintain BG<200, insulin protocol as needed. -cont synthroid po 75 mcg daily Musculsk- pressure ulcer prophylaxis. Bedrest, trial oob to chair later today Wounds- none Nutrition- NPO DVT prophylaxis: SCD, xarelto po GI prophylaxis: h2b Central Line: left fem 12/28 Arterial Line: left fem 12/29 Mishra Cathetor: yes 12/28 Disposition: Patient requires Critical Care/ICU for respiratory failure req hiflow, Severe Sepsis Patient Clinical Status: guarded, critical Code Status: full code Total Critical Care time is 45 minutes, excluding procedures/teaching Lawrence Sanchez MD [employer] Home [employer] (Electronically Signed)
[2018-12-31] MEDS ORDERED: Norepinephrine 16MCG/ML IVPRE* 4,000 MCG/250 ML BAG IV ONE (15:35)
[2018-12-31] MEDS: Norepinephrine 16MCG/ML IVPRE* 4,000 MCG/250 ML BAG IV SCH (16:24)
[2018-12-31] MEDS ORDERED: Dofetilide CAP* 125 MCG PO ONE (16:40)
[2018-12-31] MEDS: Rivaroxaban TAB(*) 20 MG TAB PO SCH (16:50)
[2018-12-31] MEDS: Vasopressin* 100 UNITS in D5W 250 ML BAG* 245 ML IV SCH (19:05)
[2018-12-31] MEDS: Metoprolol Tartrate IV* 1 MG/ML 5 ML VIAL IV PRN (20:13)
[2018-12-31] MEDS: Melatonin 3 MG TAB PO PRN (22:06)
[2018-12-31 22:36] LABS: BUN/Creatinine Ratio 28.6 (8-20); Calcium 8.2 mg/dL (8.6-10.3); EGFR Non-African American 152.9 (>60); Potassium 3.9 mmol/L (3.5-5.0)
[2019-01-01] MEDS: Levothyroxine TAB* 75 MCG TAB PO SCH (05:16)
[2019-01-01] MEDS: Norepinephrine 16MCG/ML IVPRE* 4,000 MCG/250 ML BAG IV SCH (05:16)
[2019-01-01 05:34] LABS: Hematocrit 33 % (35-47); Mean Corpuscular HGB Conc 33 g/dL (31-36); Mean Corpuscular Hemoglobin 29 pg (27-31); Mean Corpuscular Volume 87 fL (80-97); Mean Platelet Volume 8.5 fL (7.4-10.4); Platelet Count 208 10^3/uL (150-450); Red Blood Count 3.82 10^6 /uL (3.70-4.87); Red Cell Distribution Width 15 % (10-15); White Blood Count 32.8 10^3/uL (3.5-10.8)
[2019-01-01 05:53] LABS: BUN/Creatinine Ratio 32.7 (8-20); Calcium 8.4 mg/dL (8.6-10.3); EGFR African American 154.8 (>60); Phosphorus 2.6 mg/dL (2.5-5.0); Potassium 3.8 mmol/L (3.5-5.0)
[2019-01-01] MEDS: Vancomycin(*) 1,250 MG in NS 0.9% 250 ML* 250 ML IVPB SCH ×2 (07:29→20:39)
[2019-01-01] MEDS: Ascorbic Acid TAB* 500 MG PO SCH (08:22)
[2019-01-01] MEDS: Magnesium Oxide TAB* 400 MG PO SCH ×2 (08:22→20:39)
[2019-01-01] MEDS: Famotidine IV* 10 MG/ML 2 ML (20 mg) IV SLOW PU SCH (08:22)
[2019-01-01] MEDS: Dofetilide CAP* 125 MCG PO SCH ×3 (08:22→22:09)
[2019-01-01] MEDS ORDERED: NS 0.9% 500 ML* 500 ML IV ONE (11:32)
[2019-01-01] MEDS ORDERED: Potassium Chloride* LIQUID 20 MEQ/15 ML UDC PO ONE (11:42)
--- NOTE | 2019-01-01 11:44 | PN ---
Progress Note - Progress Note Date of Service: 01/01/19 Note: Progress Note -- Critical Care 24 hour events -awake, alert; back on hiflow, tachypnea yesterday -back on vasopressin adn levophed infusion for hypotension -denies complaints; sputum prod less, cough+; sob+, no cp -diarrhea+ still 400cc -afib with tachycardia all day; worsened with levophed initially Tele: afib Vitals: Vital Signs Temp 98.6 F 01/01/19 10:45 Pulse 108 01/01/19 10:45 Resp 27 01/01/19 10:45 BP 122/79 01/01/19 10:00 Pulse Ox 100 01/01/19 10:45 Intake & Output 12/31/18 01/01/19 01/01/19 18:59 06:59 18:59 Intake Total 645 788 150 Output Total 1735 475 60 Balance -1090 313 90 Weight 72.9 kg Intake: IV Fluids 645 309 NS 645 49 vanco 260 Medicated IV 239 CC - Norepinephrine/ 178 Levophed Vasopressin 61 Oral 0 240 150 Output: Mishra 1385 475 60 Liquid Stool 350 Other: Date of Last Bowel 01/01/19 Movement # Bowel Movements 1 Estimated Stool Amount Medium Small O2/Vent: hiflow 40% 25lpm Infusions: levophed, vasopressin Current Medications: Acetaminophen (Tylenol Adult Liq*) 650 mg PO Q6H PRN PRN Reason: fever >102 Albuterol (Ventolin 2.5 Mg/3 Ml Neb.Rose*) 2.5 mg INH Q4H PRN PRN Reason: SOB/WHEEZING Ascorbic Acid (Vitamin C Tab*) 1,000 mg PO DAILY [facility] Last Admin: 01/01/19 08:22 Dose: 1,000 mg Dofetilide (Tikosyn Cap*) 125 mcg PO 0930,1430,2230 [facility] Last Admin: 01/01/19 08:22 Dose: 125 mcg Famotidine (Pepcid Iv*) 20 mg IV SLOW PU DAILY [facility] Last Admin: 01/01/19 08:22 Dose: 20 mg Hydromorphone HCl (Dilaudid Inj*) 0.5 mg IV SLOW PU Q6H PRN PRN Reason: PAIN Last Admin: 12/31/18 11:44 Dose: 0.5 mg Vancomycin HCl 1,250 mg/ (Sodium Chloride) 250 mls @ 166.667 mls/hr IVPB Q12H [facility] Stop: 01/03/19 23:59 Last Admin: 01/01/19 07:29 Dose: 166.667 mls/hr Norepinephrine Bitartrate (Levophed 16 Mcg/Ml Premix Bag*) 4,000 mcg in 250 mls @ 18.75 mls/hr IV .INITIAL RATE [facility]; Protocol Last Admin: 01/01/19 05:16 Dose: 18.75 mls/hr Vasopressin 100 units/ (Dextrose) 250 mls @ 6 mls/hr IV Q41H [facility]; Protocol Last Admin: 12/31/18 19:05 Dose: 6 mls/hr Levothyroxine Sodium (Synthroid Tab*) 75 mcg PO QAM@0600 [facility] Last Admin: 01/01/19 05:16 Dose: 75 mcg Magnesium Oxide (Magox 400 Tab*) 400 mg PO Q12HR [facility] Last Admin: 01/01/19 08:22 Dose: 400 mg Melatonin (Melatonin) 3 mg PO BEDTIME PRN PRN Reason: SLEEP Last Admin: 12/31/18 22:06 Dose: 3 mg Metoprolol Tartrate (Lopressor Iv*) 5 mg IV Q6H PRN PRN Reason: HR>110 Last Admin: 12/31/18 20:13 Dose: 5 mg Multi-Ingredient Mouthwash/Gargle (Biotene Dry Mouth Oral Rinse(Nf)) 5 ml MT Q2H PRN PRN Reason: DRY MOUTH Last Admin: 12/29/18 16:13 Dose: 5 ml Pharmacy Consult (Vancomycin Per Pharmacy*) 1 note FOLLOW UP . PRN PRN Reason: PER PROTOCOL Stop: 01/03/19 23:59 Pharmacy Profile Note (Vancomycin Trough Check) 1 note FOLLOW UP 0830 ONE Stop: 01/02/19 08:31 Rivaroxaban (Xarelto(*)) 20 mg PO 1700 [facility] Last Admin: 12/31/18 16:50 Dose: 20 mg Physical Exam: Constitutional: awake, alert, no tachypnea, no diaphoresis Head: normocephalic, atraumatic Eyes: no pallor, no icterus ENT: moist mucous membranes Neck: soft, supple, no jvd CVS: normal rate, regular, no murmur Resp: bilateral air entry, left rhonchi+ and mild wheeze+, no rhales, no acc muscle use Abdomen/GI: soft, nondistended, BS+ Ext/Msk: warm, pulses+, + edema Skin: intact, cool lower ext; right hand chronic changes/mottling; left arm edema chronic Neuro: awake, alert, follows commands, orientedx3 Labs: Laboratory Results - last 24 hr 12/31/18 01/01/19 01/01/19 22:16 05:27 05:27 WBC 32.8 H RBC 3.82 Hgb 11.0 L Hct 33 L MCV 87 MCH 29 MCHC 33 RDW 15 Plt Count 208 MPV 8.5 Sodium 132 L 132 L Potassium 3.9 3.8 Chloride 96 L 94 L Carbon Dioxide 30 28 Anion Gap 6 10 BUN 12 16 Creatinine 0.42 L 0.49 L Est GFR ( Amer) 185.0 154.8 Est GFR (Non-Af Amer) 152.9 128.0 BUN/Creatinine Ratio 28.6 H 32.7 H Glucose 127 H 145 H Calcium 8.2 L 8.4 L Phosphorus 2.6 Magnesium 2.0 2.0 Imaging: CXr 12/28 - Right > left infiltrates are new and progressive in upper and lower lobes+ cxr 12/29 - ett above kelse[place]; right sided infiltrates improved at base more cxr 12/30 - improving infitlrates TTE 12/30 - normal LV function, no vegetations noted cxr 01/01 - right sided infitlrates, congestion?, right effusion+ Assessment: 63y F w/pmhx of Hodgkins Lymphoma [id number], s/p mediastinal RT, s/p relapse and ABVD , Afib on Xarelto, Left arm lymphedema, COPD, Pulm HTN, 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 She was admitted and started on IV diuretics, then upgraded to ICU for hypertonic 3% saline infusion on 12/27 for suspected symptomatic hyponatremia with nausea/vomitting. Her last sodium improved to 116. Overnight 12/27-12/28 developed inreasing respiratory distress, fever tmax 103, intubated for WOB and then change in mental status, then hypotensive, started on levophed infusion, no IVF bolus given previous volume overload state, IV abx with cefepime/vanco/flagyl, central lines placed. Noted to have tachycardia, irregular, wide complex appearing, but reverted to NSR after intubation. -Acute Hypoxic Respiratory failure, intubated 12/28; ext 12/31 -MSSA pneumonia on right -Enterococcus Bacteremia -Septic Shock, improved -Neutropenic Sepsis -Mild thromboctyopenia -Severe symptomatic hyponatremia -LISA ?Decompensated CHF Breast Ca on Chemotherapy 12/21 Afib/flutter on Xarelto COPD, possible mild ILD from prior RT for NHL Plan: Neuro- -awake, alert, follows commands -chronic pain on percocet at home; restart po percocet q6h prn -Delirium prec; avoid BDZ CVS- -hypotensive; back on levophed and vasopressin -hold further lasix -NS 500cc bolus x1 -IV abx -TTE 12/30 without vegetations noted -Afib, tachycardic 100-120; EKG with Qtc low 500s; cont tikosyn PO tid -cont Xarelto PO for Aflutter AC -Maintain MAP>65 -hold BB for now Resp- -maintained on hiflow; on 40% 25lpm; switched to [place] now -cont to wean -CXR 01/01 uncahged; right inifltrates/congestion, small effusion -less cough and sputum -obtain CT chest w/o contrast to eval for any progressive consolidation or even cavity/abscess given her MSSA pneumonia -bronchodilator neb q4h prn -no steroids indicated yet -chest PT q4h WA -IV abx -Wean Fio2 to keep sat>92% -Bronchodilators PRN, Aspiration prec ID- -afebrile, wbc incr to 11.5 - 18 - 24 -32 -sputum MSSA 3+ -blood cx / enteroccocus feacalis+; pansensitive -TTE no vegetations 12/30 -suspect enterococcus was transient bacteremia -repeat Blood cx x2 on 12/31 pending; to make sure of clearance -breast Ca, on chemo 12/21, s/p neulasta post chemo, now neutropenic -d/.c cefepime 12/31 (4 days were given); will cont Vanco 1.25gm IV q12h ( pharmacy dosing) (day#5) for total 7 days for cover enterococcus and MSSA GI- -soft unrestricted diet -diarrhea; c.diff neg on admission 12/29 -monitor diarrhea closely -GI prophylaxis as needed Renal- -LISA likely from hypotension/sepsis; Cr normalized -making urine -kcl po 40meq x1 -NS 500cc/bolus x1 -strict I/O, replete to keep K>4, Mg>2 -mishra as indicated Heme- -anemia; stable 04-21 -no bleeding -plt improved -neutropenic; now wbc increasing, 11.5-18-24-32; s/p neulast >7 days back post chemo, and now with sepsis as response -Heme/Onc following for breast Ca -DVT proph with SCD/chemical (xarelto) Endo- Maintain BG<200, insulin protocol as needed. -cont synthroid po 75 mcg daily Musculsk- pressure ulcer prophylaxis. Bedrest, oob to chair Wounds- none Nutrition- soft reg diet DVT prophylaxis: SCD, xarelto po GI prophylaxis: h2b Central Line: left fem 12/28 Arterial Line: left fem 12/29 Mishra Cathetor: yes 12/28 Disposition: Patient requires Critical Care/ICU for respiratory failure req hiflow, Severe Sepsis Patient Clinical Status: guarded, critical Code Status: full code Total Critical Care time is 35 minutes, excluding procedures/teaching Lawrence Sanchez MD Hip Hop Dance Instructor (Electronically Signed)
[2019-01-01] MEDS: oxyCODONE/Acetamin 5/325 MG* TAB PO PRN ×2 (12:10→19:24)
[2019-01-01] MEDS: Rivaroxaban TAB(*) 20 MG TAB PO SCH (17:01)
[2019-01-01] MEDS: Melatonin 3 MG TAB PO PRN (23:22)
[2019-01-02] MEDS: oxyCODONE/Acetamin 5/325 MG* TAB PO PRN ×3 (04:31→21:01)
[2019-01-02] MEDS: Levothyroxine TAB* 75 MCG TAB PO SCH (05:44)
[2019-01-02 06:14] LABS: Hematocrit 32 % (35-47); Hemoglobin 10.2 g/dL (12.0-16.0); Mean Corpuscular HGB Conc 32 g/dL (31-36); Mean Corpuscular Hemoglobin 28 pg (27-31); Mean Corpuscular Volume 89 fL (80-97); Mean Platelet Volume 8.2 fL (7.4-10.4); Platelet Count 276 10^3/uL (150-450); Red Cell Distribution Width 15 % (10-15); White Blood Count 40.8 10^3/uL (3.5-10.8)
[2019-01-02 06:21] LABS: BUN/Creatinine Ratio 28.8 (8-20); Calcium 8.9 mg/dL (8.6-10.3); EGFR Non-African American 103.3 (>60); Magnesium 2.1 mg/dL (1.9-2.7); Phosphorus 2.1 mg/dL (2.5-5.0); Potassium 3.8 mmol/L (3.5-5.0)
[2019-01-02] MEDS ORDERED: Vancomycin Trough Check NOTE FOLLOW UP ONE (08:30)
[2019-01-02] MEDS: Famotidine IV* 10 MG/ML 2 ML (20 mg) IV SLOW PU SCH (09:06)
[2019-01-02] MEDS: Magnesium Oxide TAB* 400 MG PO SCH ×2 (09:07→21:02)
[2019-01-02] MEDS: Ascorbic Acid TAB* 500 MG PO SCH (09:07)
[2019-01-02] MEDS: Dofetilide CAP* 125 MCG PO SCH ×3 (09:18→21:06)
--- NOTE | 2019-01-02 10:59 | PN ---
Progress Note - Progress Note Date of Service: 01/02/19 SOAP: Subjective: []Feeling OK overall. "I've had quite the ride." Hoarse voice. Still coughing. Happy to know C.Diff was negative. States diarrhea has improved. Medications Acetaminophen (Tylenol Adult Liq*) 650 mg PO Q6H PRN PRN Reason: fever >102 Albuterol (Ventolin 2.5 Mg/3 Ml Neb.Rose*) 2.5 mg INH Q4H PRN PRN Reason: SOB/WHEEZING Ascorbic Acid (Vitamin C Tab*) 1,000 mg PO DAILY [facility] Last Admin: 01/02/19 09:07 Dose: 1,000 mg Dofetilide (Tikosyn Cap*) 125 mcg PO 0930,1430,2230 [facility] Last Admin: 01/02/19 09:18 Dose: 125 mcg Famotidine (Pepcid Iv*) 20 mg IV SLOW PU DAILY [facility] Last Admin: 01/02/19 09:06 Dose: 20 mg Vancomycin HCl 1,250 mg/ (Sodium Chloride) 250 mls @ 166.667 mls/hr IVPB Q12H [facility] Stop: 01/03/19 23:59 Last Admin: 01/01/19 20:39 Dose: 166.667 mls/hr Norepinephrine Bitartrate (Levophed 16 Mcg/Ml Premix Bag*) 4,000 mcg in 250 mls @ 18.75 mls/hr IV .INITIAL RATE [facility]; Protocol Last Admin: 01/01/19 05:16 Dose: 18.75 mls/hr Vasopressin 100 units/ (Dextrose) 250 mls @ 6 mls/hr IV Q41H [facility]; Protocol Last Admin: 12/31/18 19:05 Dose: 6 mls/hr Levothyroxine Sodium (Synthroid Tab*) 75 mcg PO QAM@0600 [facility] Last Admin: 01/02/19 05:44 Dose: 75 mcg Magnesium Oxide (Magox 400 Tab*) 400 mg PO Q12HR [facility] Last Admin: 01/02/19 09:07 Dose: 400 mg Melatonin (Melatonin) 3 mg PO BEDTIME PRN PRN Reason: SLEEP Last Admin: 01/01/19 23:22 Dose: 3 mg Metoprolol Tartrate (Lopressor Iv*) 5 mg IV Q6H PRN PRN Reason: HR>110 Last Admin: 12/31/18 20:13 Dose: 5 mg Multi-Ingredient Mouthwash/Gargle (Biotene Dry Mouth Oral Rinse(Nf)) 5 ml MT Q2H PRN PRN Reason: DRY MOUTH Last Admin: 12/29/18 16:13 Dose: 5 ml Oxycodone/Acetaminophen (Percocet 5/325 Tab*) 1 tab PO Q6H PRN PRN Reason: PAIN Last Admin: 01/02/19 10:16 Dose: 1 tab Pharmacy Consult (Vancomycin Per Pharmacy*) 1 note FOLLOW UP . PRN PRN Reason: PER PROTOCOL Stop: 01/03/19 23:59 Rivaroxaban (Xarelto(*)) 20 mg PO 1700 [facility] Last Admin: 01/01/19 17:01 Dose: 20 mg Objective: [] Vital Signs Temp Pulse Resp BP Pulse Ox 98.8 F 95 27 146/75 100 01/02/19 10:45 01/02/19 10:45 01/02/19 10:45 01/02/19 10:00 01/02/19 10:45 A&Ox3, EOMI, Communicating clearly, neuro grossly non-focal HRR, S1S2, III/ murmur LS dim. bilat., harsh wet cough No peripheral edema RODRIGUES Right arm weakness, known brachialplexi Left arm lymphedmea Laboratory Results - last 24 hr 01/02/19 01/02/19 01/02/19 05:57 05:57 09:20 WBC 40.8 H RBC 3.60 L Hgb 10.2 L Hct 32 L MCV 89 MCH 28 MCHC 32 RDW 15 Plt Count 276 MPV 8.2 Sodium 134 L Potassium 3.8 Chloride 96 L Carbon Dioxide 36 H Anion Gap 2 BUN 17 Creatinine 0.59 Est GFR ( Amer) 125.0 Est GFR (Non-Af Amer) 103.3 BUN/Creatinine Ratio 28.8 H Glucose 137 H Calcium 8.9 Phosphorus 2.1 L Magnesium 2.1 Vancomycin Trough 13.7 Microbiology 01/01/19 09:15 Aerobic Blood Culture - Preliminary Blood Venous No Growth Day 1 Anaerobic Blood Culture - Preliminary No Growth Day 1 12/28/18 03:55 Aerobic Blood Culture - Final Blood Venous No Growth Day 5 Anaerobic Blood Culture - Final No Growth Day 5 12/28/18 01:15 Aerobic Blood Culture - Final Blood Venous No Growth Day 5 Anaerobic Blood Culture - Final Enterococcus Faecalis 12/31/18 14:40 Aerobic Blood Culture - Preliminary Blood Venous No Growth Day 1 Anaerobic Blood Culture - Preliminary No Growth Day 1 01/01/19 12:09 Stool Gross Appearance - Final Stool C. difficile DNA Amplification - Final 027 Presumptive NEGATIVE Toxigenic C.diff NEGATIVE 12/29/18 03:50 Stool Culture - Final Stool Stool Gross Appearance - Final Shiga Toxin I & II - Final Negative Shiga Toxin 1 & 2 C. difficile DNA Amplification - Final 027 Presumptive NEGATIVE Toxigenic C.diff NEGATIVE 12/28/18 04:12 Gram Stain - Final Sputum Trach Sputum Culture - Final Staphylococcus Aureus Normal Flor 12/28/18 03:03 Urine Culture - Final Urine No Growth (<1,000 CFU/mL) 12/29/18 03:50 Stool Occult Blood (IMELDA) - Final Stool 12/28/18 04:28 Nasal Screen MRSA (PCR) - Final Nasal Mrsa Not Detected CT Chest 12/[address] Martinez: #. Limited exam without IV contrast. #. Partially loculated small RIGHT pleural effusion and probable central airway obstruction at the RIGHT upper lobe, RIGHT middle lobe, and to a lesser extent RIGHT lower lobe with postobstructive pneumonia. #. RIGHT hilar lymphadenopathy is not excluded on the basis of this exam. #. Moderately large dependent LEFT pleural effusion with proportional atelectasis. Assessment: []63 yo F w remote hodgkin's disease sp ABVD/mediastinal RT w course c/b pneumonitis, pHTN, r brachial plexopathy and left lymphedema, now with T2N1M0 ER + IDC sp cycle 1 of Taxotere/cytoxan admitted with profound hyponatremia and quickly developed respiratory distress, febrile neutropenia and hypotension. Now intubated on pressors with enterobacter bacteremia and MSSA PNA. Plan: []febrile neutropenia with septic shock: - early development despite growth factor support, likely related to prior chemotherapy - neutropenia resolved, now with leukocytosis which is expected from Neulasta admininstration - recurrent hypotension requiring Levophed Enterobacter bacteremia: - resolved, negative cultures as of 12/31 MSSA PNA: - cont Vanco Hyponatremia: resolved oncology will continue to follow very closely and will take over care when appropriate for dc from ICU
[2019-01-02] MEDS: Vancomycin(*) 1,250 MG in NS 0.9% 250 ML* 250 ML IVPB SCH ×2 (11:01→21:01)
[2019-01-02] MEDS: Vasopressin* 100 UNITS in D5W 250 ML BAG* 245 ML IV SCH (11:04)
--- NOTE | 2019-01-02 17:18 | PN ---
Date of Service: 01/02/19 Critical Care Services: Patient appears comfortable. is on very low-dose levophed (2 mcg/min) Vital Signs: Temp Pulse Resp BP SpO2 FiO2 98.6 F 99 35 149/78 100 35 Physical Exam: Gen: Alert, oriented HEENT: Is hoarse Lungs: Crackles right base Cardiac: Reg rhythm Extremities:Cyanosis tips of fingers in right hand. 2+ edema of left arm Fluid Balance (Past 24 Hours): 12/31/18 01/01/19 01/02/19 06:59 06:59 06:59 Intake Total 1914.8 1433 2732.2 Output Total 2820 2210 940 Balance -905.2 -777 1792.2 Weight 167 lb 1.766 oz 160 lb 11.472 oz 164 lb 10.965 oz Intake: IV Fluids 1325 954 783 NS 1325 694 783 vanco 260 IVPB 167 NS 167 Medicated IV 376.8 239 609.2 CC - Norepinephrine/ 178 188.8 Levophed Levophed 168 Propofol 68 Vasopressin 140.8 61 420.4 IV Narcotic Infusion 46 Fentanyl 46 Oral 0 240 1240 Tube Feeding NG Tube Irrigate Amount 100 Output: [place] 2820 1860 940 Liquid Stool 350 Tube Feeding Residual Amount Wasted Other: Date of Last Bowel t 01/01/19 01/01/19 Movement # Bowel Movements 1 1 1 Estimated Stool Amount Small Small Large Labs: 01/02/19 01/02/19 01/02/19 05:57 05:57 09:20 WBC 40.8 H RBC 3.60 L Hgb 10.2 L Hct 32 L MCV 89 MCH 28 MCHC 32 RDW 15 Plt Count 276 Sodium 134 L Potassium 3.8 Chloride 96 L Carbon Dioxide 36 H Anion Gap 2 BUN 17 Creatinine 0.59 Est GFR ( Amer) 125.0 Est GFR (Non-Af Amer) 103.3 BUN/Creatinine Ratio 28.8 H Glucose 137 H Calcium 8.9 Phosphorus 2.1 Magnesium 2.1 Cortisol Vancomycin Trough 13.7 01/02/19 11:00 WBC RBC Hgb Hct MCV MCH MCHC RDW Plt Count MPV Sodium Potassium Chloride Carbon Dioxide Anion Gap BUN Creatinine Est GFR ( Amer) Est GFR (Non-Af Amer) BUN/Creatinine Ratio Glucose Calcium Phosphorus Magnesium Cortisol 18.79 Vancomycin Trough Studies: 12/28: Sputum culture growing MSSA, one blood culture growing Enterococcus Nutrition: regular diet - intake fair Impression: Slowly improving from presumed polymicrobial (MSSA, enterococcus) pneumonia with septic shock. Plan: Continue vancomycin (both organisms sensitive) and try to d/c vasopressor. Spoke to patient's brothert and he is aware of current condition. Critical Care Time: 40 minutes
[2019-01-02] MEDS: Rivaroxaban TAB(*) 20 MG TAB PO SCH (17:48)
[2019-01-02] MEDS: Norepinephrine 16MCG/ML IVPRE* 4,000 MCG/250 ML BAG IV SCH (17:57)
[2019-01-02] MEDS: Melatonin 3 MG TAB PO PRN (21:01)
[2019-01-03] MEDS: oxyCODONE/Acetamin 5/325 MG* TAB PO PRN ×3 (03:16→23:05)
[2019-01-03 05:26] LABS: Hematocrit 33 % (35-47); Hemoglobin 10.5 g/dL (12.0-16.0); Mean Corpuscular HGB Conc 32 g/dL (31-36); Mean Corpuscular Hemoglobin 28 pg (27-31); Mean Corpuscular Volume 89 fL (80-97); Mean Platelet Volume 8.1 fL (7.4-10.4); Platelet Count 369 10^3/uL (150-450); Red Blood Count 3.71 10^6 /uL (3.70-4.87); Red Cell Distribution Width 15 % (10-15); White Blood Count 41.3 10^3/uL (3.5-10.8)
[2019-01-03 05:47] LABS: BUN/Creatinine Ratio 27.5 (8-20); Calcium 8.6 mg/dL (8.6-10.3); EGFR African American 195.7 (>60); EGFR Non-African American 161.7 (>60); Potassium 3.8 mmol/L (3.5-5.0)
[2019-01-03] MEDS: Levothyroxine TAB* 75 MCG TAB PO SCH (06:01)
[2019-01-03] MEDS: Famotidine IV* 10 MG/ML 2 ML (20 mg) IV SLOW PU SCH (09:19)
[2019-01-03] MEDS: Dofetilide CAP* 125 MCG PO SCH ×3 (09:19→22:24)
[2019-01-03] MEDS: Ascorbic Acid TAB* 500 MG PO SCH (09:19)
[2019-01-03] MEDS: Magnesium Oxide TAB* 400 MG PO SCH ×2 (09:19→20:26)
[2019-01-03] MEDS: Vancomycin(*) 1,250 MG in NS 0.9% 250 ML* 250 ML IVPB SCH ×2 (09:20→20:28)
[2019-01-03] MEDS: Rivaroxaban TAB(*) 20 MG TAB PO SCH (17:12)
--- NOTE | 2019-01-03 17:58 | PN ---
Date of Service: 01/03/19 Critical Care Services: Off pressors and maintaining an adequate BP. Less SOB today Vital Signs: Temp Pulse Resp BP SpO2 FiO2 99.5 F 123 31 102/67 99 35 Physical Exam: Gen:Appears comfortable. is hoarse Lungs: Crackles right base. Decreased BS both bases. Extremities: Edema left arm and cyanosis right fingertips (same as yesterday) Fluid Balance (Past 24 Hours): 01/01/19 01/02/19 01/03/19 06:59 06:59 06:59 Intake Total 1433 2732.2 1778 Output Total 2210 940 1376 Balance -777 1792.2 402 Weight 160 lb 11.472 oz 164 lb 10.965 oz 164 lb 10.965 oz Intake: IV Fluids 954 783 588 NS 694 783 338 vanco 260 250 IVPB 250 vanco 250 Medicated IV 239 609.2 130 CC - Norepinephrine/ 178 188.8 130 Levophed Vasopressin 61 420.4 Oral 240 1240 810 Tube Feeding 0 NG Tube Irrigate Amount 100 0 Output: Urine 75 [place] 7231 370 0399 Liquid Stool 350 Tube Feeding Residual 0 Amount Wasted Other: Date of Last Bowel 01/01/19 01/01/19 01/02/19 Movement # Bowel Movements 1 1 1 Estimated Stool Amount Small Large Small Labs: 01/03/19 01/03/19 05:15 05:15 WBC 41.3 RBC 3.71 Hgb 10.5 L Hct 33 L MCV 89 MCH 28 MCHC 32 RDW 15 Plt Count 369 MPV 8.1 Sodium 135 Potassium 3.8 Chloride 96 L Carbon Dioxide 36 H Anion Gap 3 BUN 11 Creatinine 0.40 L Est GFR ( Amer) 195.7 Est GFR (Non-Af Amer) 161.7 BUN/Creatinine Ratio 27.5 H Glucose 129 H Calcium 8.6 Studies: None today Nutrition: Oral diet Impression: Septic shock has resolved, but still has marked leukocytosis and tachycardia. Plan: Continue present management. Can transfer out of ICU if BP holds off vasopressors. Critical Care Time: 40 minutes
[2019-01-03] MEDS: Digoxin IV* 0.5 MG/2 ML AMP (0.25 MG/ML) IV SLOW PU SCH (20:26)
--- NOTE | 2019-01-03 21:16 | PN ---
Progress Note - Progress Note Date of Service: 01/03/19 SOAP: Subjective: [Remains hoarse. Denies SOB or CP. Some generalized pain. Appetite good. Bowels moving. Maintaining a good attitude. Levophed off for ~1 hr at the time of evaluation.] Objective: [ Laboratory Results - last 24 hr 01/03/19 01/03/19 05:15 05:15 WBC 41.3 H RBC 3.71 Hgb 10.5 L Hct 33 L MCV 89 MCH 28 MCHC 32 RDW 15 Plt Count 369 MPV 8.1 Sodium 135 Potassium 3.8 Chloride 96 L Carbon Dioxide 36 H Anion Gap 3 BUN 11 Creatinine 0.40 L Est GFR ( Amer) 195.7 Est GFR (Non-Af Amer) 161.7 BUN/Creatinine Ratio 27.5 H Glucose 129 H Calcium 8.6 Acetaminophen (Tylenol Adult Liq*) 650 mg PO Q6H PRN PRN Reason: fever >102 Albuterol (Ventolin 2.5 Mg/3 Ml Neb.Rose*) 2.5 mg INH Q4H PRN PRN Reason: SOB/WHEEZING Ascorbic Acid (Vitamin C Tab*) 1,000 mg PO DAILY ÁLVARO Last Admin: 01/03/19 09:19 Dose: 1,000 mg Digoxin (Digoxin Iv*) 0.25 mg IV SLOW PU Q6H ÁLVARO Stop: 01/04/19 08:01 Last Admin: 01/03/19 20:26 Dose: 0.25 mg Dofetilide (Tikosyn Cap*) 125 mcg PO 0930,1430,2230 ÁLVARO Last Admin: 01/03/19 14:21 Dose: 125 mcg Famotidine (Pepcid Iv*) 20 mg IV SLOW PU DAILY ÁLVARO Last Admin: 01/03/19 09:19 Dose: 20 mg Vancomycin HCl 1,250 mg/ (Sodium Chloride) 250 mls @ 166.667 mls/hr IVPB Q12H ÁLVARO Stop: 01/03/19 23:59 Last Admin: 01/03/19 20:28 Dose: 166.667 mls/hr Norepinephrine Bitartrate (Levophed 16 Mcg/Ml Premix Bag*) 4,000 mcg in 250 mls @ 18.75 mls/hr IV .INITIAL RATE ÁLVARO; Protocol Last Admin: 01/02/19 17:57 Dose: 7.5 mls/hr Levothyroxine Sodium (Synthroid Tab*) 75 mcg PO QAM@0600 [facility] Last Admin: 01/03/19 06:01 Dose: 75 mcg Magnesium Oxide (Magox 400 Tab*) 400 mg PO Q12HR [facility] Last Admin: 01/03/19 20:26 Dose: 400 mg Melatonin (Melatonin) 3 mg PO BEDTIME PRN PRN Reason: SLEEP Last Admin: 01/02/19 21:01 Dose: 3 mg Metoprolol Tartrate (Lopressor Iv*) 5 mg IV Q6H PRN PRN Reason: HR>110 Last Admin: 12/31/18 20:13 Dose: 5 mg Midodrine (Midodrine) 5 mg PO TID [facility]; Protocol Last Admin: 01/03/19 20:26 Dose: 5 mg Multi-Ingredient Mouthwash/Gargle (Biotene Dry Mouth Oral Rinse(Nf)) 5 ml MT Q2H PRN PRN Reason: DRY MOUTH Last Admin: 12/29/18 16:13 Dose: 5 ml Oxycodone/Acetaminophen (Percocet 5/325 Tab*) 1 tab PO Q6H PRN PRN Reason: PAIN Last Admin: 01/03/19 11:09 Dose: 1 tab Pharmacy Consult (Vancomycin Per Pharmacy*) 1 note FOLLOW UP . PRN PRN Reason: PER PROTOCOL Stop: 01/03/19 23:59 Rivaroxaban (Xarelto(*)) 20 mg PO 1700 [facility] Last Admin: 01/03/19 17:12 Dose: 20 mg Vital Signs: Temp Pulse Resp BP Pulse Ox 99.3 F 121 22 108/66 96 01/03/19 20:45 01/03/19 20:45 01/03/19 20:45 01/03/19 20:00 01/03/19 20:45 [Assessment: 63 yo F w remote hodgkin's disease sp ABVD/mediastinal RT w course c/b pneumonitis, pHTN, r brachial plexopathy and left lymphedema, now with T2N1M0 ER + IDC sp cycle 1 of Taxotere/cytoxan admitted with profound hyponatremia and quickly developed respiratory distress, febrile neutropenia and hypotension. Required intubation and prolonged pressor support with enterobacter bacteremia and MSSA PNA. Plan: febrile neutropenia with septic shock: - early development despite growth factor support, ?from prior chemotherapy use - neutropenia has now resolved now with leukocytosis which is expected from Neulasta admininstration - levophed stopped this am, MAP still 60-65, but good mentation and urine output - start midodrine 5 mg po tid and plan to restart levophed only if MAP<60 despite midodrine Respiratory failure: - resolved, now extubated Enterobacter bacteremia: - source unclear - TTE neg for vegetations - cont Vanco MSSA PNA: - sputum grew MSSA - cont Vanco - CT demonstrates dense consolidations and loculated pleural effusion - will plan to repeat CT 4 weeks after completing abx to ensure full resolution and r/o underlying malignancy Hyponatremia: - now improved anticipate dc from ICU tomorrow if wean from levophed is successful
[2019-01-03] MEDS: Norepinephrine 16MCG/ML IVPRE* 4,000 MCG/250 ML BAG IV SCH (23:42)
[2019-01-04] MEDS: Digoxin IV* 0.5 MG/2 ML AMP (0.25 MG/ML) IV SLOW PU SCH ×2 (01:59→08:06)
[2019-01-04] MEDS: Levothyroxine TAB* 75 MCG TAB PO SCH (05:29)
[2019-01-04] MEDS: oxyCODONE/Acetamin 5/325 MG* TAB PO PRN ×3 (05:32→20:15)
[2019-01-04 05:45] LABS: Hematocrit 33 % (35-47); Hemoglobin 10.7 g/dL (12.0-16.0); Mean Corpuscular HGB Conc 33 g/dL (31-36); Mean Corpuscular Hemoglobin 29 pg (27-31); Mean Corpuscular Volume 88 fL (80-97); Mean Platelet Volume 7.8 fL (7.4-10.4); Platelet Count 421 10^3/uL (150-450); Red Blood Count 3.72 10^6 /uL (3.70-4.87); Red Cell Distribution Width 15 % (10-15); White Blood Count 44.5 10^3/uL (3.5-10.8)
[2019-01-04 06:05] LABS: Calcium 8.3 mg/dL (8.6-10.3); EGFR African American 158.6 (>60)
[2019-01-04] MEDS: Magnesium Oxide TAB* 400 MG PO SCH ×2 (08:07→20:54)
[2019-01-04] MEDS: Famotidine IV* 10 MG/ML 2 ML (20 mg) IV SLOW PU SCH (08:07)
[2019-01-04] MEDS: Ascorbic Acid TAB* 500 MG PO SCH (08:07)
[2019-01-04] MEDS: Dofetilide CAP* 125 MCG PO SCH ×3 (08:23→22:29)
--- NOTE | 2019-01-04 10:44 | PN ---
Progress Note - Progress Note Date of Service: 01/04/19 SOAP: Subjective: on and off pressors over night and exercise instruct. afib w rvr, loaded with digoxin. voice remains very hoarse. reports this started after chemotherapy but is worse since intubation. Generally very weak. Objective: Vital Signs Temp Pulse Resp BP Pulse Ox 99.1 F 124 25 120/89 97 01/04/19 10:00 01/04/19 10:00 01/04/19 10:00 01/04/19 10:00 01/04/19 10:00 weak appearing op thrush, dry dec bs r base, relatively clear tachy soft nt +bs left arm lymph edema r arm cold, mottled, per pt chronic +pulse, atrophy from brachial plexopathy trace le edema globally weak Laboratory Results - last 24 hr 01/04/19 01/04/19 05:35 05:35 WBC 44.5 H RBC 3.72 Hgb 10.7 L Hct 33 L MCV 88 MCH 29 MCHC 33 RDW 15 Plt Count 421 MPV 7.8 Sodium 138 Potassium 4.0 Chloride 97 L Carbon Dioxide 38 H Anion Gap 3 BUN 12 Creatinine 0.48 L Est GFR ( Amer) 158.6 Est GFR (Non-Af Amer) 131.0 BUN/Creatinine Ratio 25.0 H Glucose 117 H Calcium 8.3 L Acetaminophen (Tylenol Adult Liq*) 650 mg PO Q6H PRN PRN Reason: fever >102 Albuterol (Ventolin 2.5 Mg/3 Ml Neb.Rose*) 2.5 mg INH Q4H PRN PRN Reason: SOB/WHEEZING Ascorbic Acid (Vitamin C Tab*) 1,000 mg PO DAILY ÁLVARO Last Admin: 01/04/19 08:07 Dose: 1,000 mg Dofetilide (Tikosyn Cap*) 125 mcg PO 0930,1430,2230 Á[facility] Last Admin: 01/04/19 08:23 Dose: 125 mcg Famotidine (Pepcid Iv*) 20 mg IV SLOW PU DAILY ÁLVARO Last Admin: 01/04/19 08:07 Dose: 20 mg Norepinephrine Bitartrate (Levophed 16 Mcg/Ml Premix Bag*) 4,000 mcg in 250 mls @ 18.75 mls/hr IV .INITIAL RATE Á[facility]; Protocol Last Admin: 01/03/19 23:42 Dose: 18.75 mls/hr Levothyroxine Sodium (Synthroid Tab*) 75 mcg PO QAM@0600 [facility] Last Admin: 01/04/19 05:29 Dose: 75 mcg Magnesium Oxide (Magox 400 Tab*) 400 mg PO Q12HR [facility] Last Admin: 01/04/19 08:07 Dose: 400 mg Melatonin (Melatonin) 3 mg PO BEDTIME PRN PRN Reason: SLEEP Last Admin: 01/02/19 21:01 Dose: 3 mg Metoprolol Tartrate (Lopressor Iv*) 5 mg IV Q6H PRN PRN Reason: HR>110 Last Admin: 12/31/18 20:13 Dose: 5 mg Midodrine (Midodrine) 5 mg PO TID [facility]; Protocol Last Admin: 01/04/19 08:07 Dose: 5 mg Multi-Ingredient Mouthwash/Gargle (Biotene Dry Mouth Oral Rinse(Nf)) 5 ml MT Q2H PRN PRN Reason: DRY MOUTH Last Admin: 12/29/18 16:13 Dose: 5 ml Nystatin (Nystatin Suspension*) 500,000 units PO QID [facility] Stop: 01/11/19 10:36 Oxycodone/Acetaminophen (Percocet 5/325 Tab*) 1 tab PO Q6H PRN PRN Reason: PAIN Last Admin: 01/04/19 05:32 Dose: 1 tab Rivaroxaban (Xarelto(*)) 20 mg PO 1700 [facility] Last Admin: 01/03/19 17:12 Dose: 20 mg Assessment: 63 yo F w remote hodgkin's disease sp ABVD/mediastinal RT w course c/b pneumonitis, pHTN, r brachial plexopathy and left lymphedema, now with T2N1M0 ER + IDC sp cycle 1 of Taxotere/cytoxan admitted with profound hyponatremia and quickly developed respiratory distress, febrile neutropenia and hypotension. Required intubation and prolonged pressor support with enterobacter bacteremia and MSSA PNA. Plan: febrile neutropenia with septic shock: - early development despite growth factor support, ?from prior chemotherapy use - neutropenia has now resolved now with leukocytosis which is expected from Neulasta admininstration - levophed still intermittently being used. - cont midodrine 5 mg po tid Respiratory failure: - resolved, now extubated Enterobacter bacteremia: - source unclear - TTE neg for vegetations - cont Vanco, this seems to have dropped off MAR for unclear reasons and will be readdressed with pharmacy MSSA PNA: - sputum grew MSSA - cont Vanco as above - CT demonstrates dense consolidations and loculated pleural effusion--the right sided loculated effusion is chronic and has been tapped before Hyponatremia: - now improved afib w rvr: complicated cardiac history with close cardiology outpatient follow up. would recommend consideration of inpatient consultation given worsening rate control and need for intermittent pressors complicating management hoarse voice" ?vocal cord paralysis, does have oral thrush. will start nystatin and consider ENT consultation cont ICU level management
[2019-01-04] MEDS: Nystatin SUSPENSION* 100000 UNITS/ML 5 ML UDC PO SCH ×3 (14:14→20:54)
[2019-01-04] MEDS ORDERED: NS 0.9% 250 ML* 250 ML ONE (15:22)
[2019-01-04] MEDS: Vancomycin(*) 1,250 MG in NS 0.9% 250 ML* 250 ML IVPB SCH (16:40)
--- NOTE | 2019-01-04 16:46 | PN ---
Date of Service: 01/04/19 Critical Care Services: Patient looks weaker today - she continues to be on-and-off levophed - currently on 1 mcg/min. On dig for AFib. Vital Signs: Temp Pulse Resp BP SpO2 FiO2 99.1 F 91 30 137/93 97 35 Physical Exam: Gen:Alert and oritnted - seems depressed Lungs: Crackles right base Cardiac: Irreg rhythm Extremities:Same as yesterday Fluid Balance (Past 24 Hours): 01/02/19 01/03/19 01/04/19 06:59 06:59 06:59 Intake Total 2732.2 1778 2613 Output Total 940 1376 882 Balance 1792.2 402 1731 Weight 164 lb 10.965 oz 164 lb 10.965 oz 161 lb 9.581 oz Intake: IV Fluids 783 588 355 NS 783 338 105 vanco 250 250 IVPB 250 306 vanco 250 306 Medicated IV 609.2 130 92 CC - Norepinephrine/ 188.8 130 92 Levophed Vasopressin 420.4 Oral 1207 408 4312 Tube Feeding 0 0 NG Tube Irrigate Amount 100 0 0 Moff[place] Irrigate Amount 10 Output: Urine 75 [place] 940 1301 882 Tube Feeding Residual 0 0 Amount Wasted Other: Date of Last Bowel 01/01/19 01/02/19 01/02/19 Movement # Bowel Movements 1 1 Estimated Stool Amount Large Small Labs: 01/04/19 01/04/19 05:35 05:35 WBC 44.5 Hgb 10.7 L Hct 33 L MCV 88 MCH 29 MCHC 33 RDW 15 Plt Count 421 Sodium 138 Potassium 4.0 Chloride 97 Carbon Dioxide 38 Anion Gap 3 BUN 12 Creatinine 0.48 L Glucose 117 H Calcium 8.3 L Studies: None today Nutrition: Oral diet - intake OK Impression: 1. Seems to be getting weaker despite resolution (slow) of pneumonia. 2. Labile blood pressure - ?exacerbated by AFIB 3. This patients hoarseness could represent vocal cord paresis (it predates the intubation) and also could predispose to aspiration. Plan: 1. ENT consult for evaluation of the hoarseness 2. Cardiology consult for management of AFIB 3. 10 days Rx vancomycin for the pneumonia. 4. Keep off levophed as long as mental status OK and urine output adequate. Critical Care Time: 40 minutes
[2019-01-04] MEDS: Rivaroxaban TAB(*) 20 MG TAB PO SCH (17:59)
[2019-01-05] MEDS: oxyCODONE/Acetamin 5/325 MG* TAB PO PRN ×3 (02:02→20:00)
[2019-01-05] MEDS: Vancomycin(*) 1,250 MG in NS 0.9% 250 ML* 250 ML IVPB SCH ×2 (02:02→14:19)
[2019-01-05] MEDS: LORazepam TAB(*) 0.5 MG PO PRN (05:06)
[2019-01-05] MEDS: Levothyroxine TAB* 75 MCG TAB PO SCH (05:45)
[2019-01-05 06:06] LABS: Hematocrit 33 % (35-47); Hemoglobin 10.9 g/dL (12.0-16.0); Mean Corpuscular HGB Conc 34 g/dL (31-36); Mean Corpuscular Hemoglobin 30 pg (27-31); Mean Corpuscular Volume 89 fL (80-97); Mean Platelet Volume 7.6 fL (7.4-10.4); Platelet Count 478 10^3/uL (150-450); Red Blood Count 3.65 10^6 /uL (3.70-4.87); Red Cell Distribution Width 15 % (10-15); White Blood Count 38.4 10^3/uL (3.5-10.8)
[2019-01-05] MEDS: Nystatin SUSPENSION* 100000 UNITS/ML 5 ML UDC PO SCH ×4 (09:47→20:00)
[2019-01-05] MEDS: Famotidine IV* 10 MG/ML 2 ML (20 mg) IV SLOW PU SCH (09:47)
[2019-01-05] MEDS: Dofetilide CAP* 125 MCG PO SCH ×3 (09:47→23:03)
[2019-01-05] MEDS: Magnesium Oxide TAB* 400 MG PO SCH ×2 (09:47→20:00)
[2019-01-05] MEDS: Ascorbic Acid TAB* 500 MG PO SCH (09:47)
--- NOTE | 2019-01-05 10:19 | PN ---
Progress Note - Progress Note Date of Service: 01/05/19 SOAP: Subjective: looks much worse this am. reports feeling disoriented. clearly more respiratory distress. not seen by cards yesterday and no ENT coverage. Objective: Vital Signs Temp Pulse Resp BP Pulse Ox 97.0 F 88 30 119/69 99 01/05/19 08:15 01/05/19 08:15 01/05/19 08:15 01/05/19 08:00 01/05/19 08:15 currently HR 120s, BP 150/70 O2 85% rr:35 use of accesorry muscles perr eomi op dry sign dc bs on right, poor air movement tachycardic soft nt r arm atrophy, mottled, left arm lymphedema awake, conversant, admits to disorientation Laboratory Results - last 24 hr 01/05/19 06:00 WBC 38.4 H RBC 3.65 L Hgb 10.9 L Hct 33 L MCV 89 MCH 30 MCHC 34 RDW 15 Plt Count 478 H D MPV 7.6 Assessment: 63 yo F w remote hodgkin's disease sp ABVD/mediastinal RT w course c/b pneumonitis, pHTN, r brachial plexopathy and left lymphedema, now with T2N1M0 ER + IDC sp cycle 1 of Taxotere/cytoxan admitted with profound hyponatremia and quickly developed respiratory distress, febrile neutropenia and hypotension. Required intubation and prolonged pressor support with enterobacter bacteremia and MSSA PNA. clinically appears clearly worse this am with increased work of breathing and decreased breath sounds. Plan: febrile neutropenia with septic shock: - early development despite growth factor support, ?from prior chemotherapy use - neutropenia has now resolved now with leukocytosis which is expected from Neulasta admininstration Respiratory failure: - stat CXR -abg -may need increased respiratory support today Enterobacter bacteremia: - source unclear - TTE neg for vegetations - cont Vanco Hyponatremia: - now improved afib w rvr: complicated cardiac history with close cardiology outpatient follow up. -discussed with cardiology getting consult today as she has been difficult to manage hoarse voice" ?vocal cord paralysis, does have oral thrush. will start nystatin ent consult when back on service cont ICU level management
[2019-01-05] MEDS ORDERED: NS 0.9% 250 ML* 250 ML ONE (14:17)
[2019-01-05] MEDS: Rivaroxaban TAB(*) 20 MG TAB PO SCH (16:20)
[2019-01-05] MEDS: Melatonin 3 MG TAB PO PRN (20:00)
--- NOTE | 2019-01-05 20:35 | PN ---
Date of Service: 01/05/19 Critical Care Services: Patient looks more tired today - Vital Signs: Temp Pulse Resp BP SpO2 FiO2 98.6 F 91 37 159/93 96 100 Physical Exam: Gen: Lethargic HEENT: Alopecia (new) Lungs: Diminished BS at right base. Extremities: No change from yesterday. Fluid Balance (Past 24 Hours): 01/03/19 01/04/19 01/05/19 06:59 06:59 06:59 Intake Total 1778 2613 2101.9 Output Total 8207 309 7591 Balance 402 1731 516.9 Weight 164 lb 10.965 oz 161 lb 9.581 oz 164 lb 7.437 oz Intake: IV Fluids 588 355 93.5 NS 338 105 40 vanco 250 250 53.5 IVPB 250 306 467 vanco 250 306 467 Medicated IV 130 92 11.4 CC - Norepinephrine/ 130 92 11.4 Levophed Oral 810 1850 1530 Tube Feeding 0 0 NG Tube Irrigate Amount 0 0 [place] Irrigate Amount 10 Output: Urine 75 [place] 3236 334 2442 Straight Cath Tube Feeding Residual 0 0 Amount Wasted Other: Date of Last Bowel 01/02/19 01/02/19 Movement # Bowel Movements 1 Estimated Stool Amount Small Labs: 01/05/19 06:00 WBC 38.4 H RBC 3.65 L Hgb 10.9 L Hct 33 L MCV 89 MCH 30 MCHC 34 RDW 15 Plt Count 478 H D MPV 7.6 Studies: CXR: Some volume loss at right base. Nutrition: Oral diet Impression: 1. Appears to be tiring from prolonged hospital stay. 2. Lobar atelectasis at base of right lung related to #1. 3. Atrial fibrillation is now rate controlled. 4. Leukocytosis resolving Plan: 1. Will try to expand right base with high-flow O2 and BIPAP if necessary. 2. Encourage physical therapy. Critical Care Time: 35 minutes
[2019-01-06] MEDS: Vancomycin(*) 1,250 MG in NS 0.9% 250 ML* 250 ML IVPB SCH ×2 (02:24→13:11)
[2019-01-06] MEDS: oxyCODONE/Acetamin 5/325 MG* TAB PO PRN ×4 (02:25→20:38)
[2019-01-06] MEDS: Levothyroxine TAB* 75 MCG TAB PO SCH (06:19)
[2019-01-06] MEDS: Nystatin SUSPENSION* 100000 UNITS/ML 5 ML UDC PO SCH ×4 (08:44→20:43)
[2019-01-06] MEDS: Ascorbic Acid TAB* 500 MG PO SCH (08:44)
[2019-01-06] MEDS: Dofetilide CAP* 125 MCG PO SCH ×3 (08:44→22:59)
[2019-01-06] MEDS: Magnesium Oxide TAB* 400 MG PO SCH ×2 (08:45→20:38)
[2019-01-06] MEDS: Famotidine IV* 10 MG/ML 2 ML (20 mg) IV SLOW PU SCH (08:45)
[2019-01-06] MEDS: Metoprolol Tartrate IV* 1 MG/ML 5 ML VIAL IV PRN (09:24)
[2019-01-06] MEDS ORDERED: Furosemide IV* 10 MG/ML 2 ML VIAL (20 MG) IV SLOW PU ONE ×2 (10:34→12:22)
--- NOTE | 2019-01-06 10:50 | PN ---
Progress Note - Progress Note Date of Service: 01/06/19 SOAP: Subjective: [Required BiPAP yesterday for increased WOB and waning mental status. Transitioned to vapotherm later in the day and stable overnight. Reports little to no dyspnea on vapotherm. Remains hoarse. Appears to be back in sinus.] Objective: [ Vital Signs: Temp Pulse Resp BP Pulse Ox 98.1 F 97 42 198/109 85 01/06/19 09:15 01/06/19 09:15 01/06/19 09:15 01/06/19 09:01 01/06/19 09:15 Acetaminophen (Tylenol Adult Liq*) 650 mg PO Q6H PRN PRN Reason: fever >102 Albuterol (Ventolin 2.5 Mg/3 Ml Neb.Rose*) 2.5 mg INH Q4H PRN PRN Reason: SOB/WHEEZING Last Admin: 01/06/19 02:36 Dose: 2.5 mg Ascorbic Acid (Vitamin C Tab*) 1,000 mg PO DAILY ÁLVARO Last Admin: 01/06/19 08:44 Dose: 1,000 mg Dofetilide (Tikosyn Cap*) 125 mcg PO 0930,1430,2230 ÁLVARO Last Admin: 01/06/19 08:44 Dose: 125 mcg Famotidine (Pepcid Iv*) 20 mg IV SLOW PU DAILY ÁLVARO Last Admin: 01/06/19 08:45 Dose: 20 mg Norepinephrine Bitartrate (Levophed 16 Mcg/Ml Premix Bag*) 4,000 mcg in 250 mls @ 18.75 mls/hr IV .INITIAL RATE [facility]; Protocol Last Admin: 01/03/19 23:42 Dose: 18.75 mls/hr Vancomycin HCl 1,250 mg/ (Sodium Chloride) 250 mls @ 166.667 mls/hr IVPB Q12H Á[facility]ARO Stop: 01/07/19 03:29 Last Admin: 01/06/19 02:24 Dose: 166.667 mls/hr Levothyroxine Sodium (Synthroid Tab*) 75 mcg PO QAM@0600 [facility] Last Admin: 01/06/19 06:19 Dose: 75 mcg Lorazepam (Ativan Tab(*)) 0.5 mg PO Q6H PRN PRN Reason: ANXIETY Last Admin: 01/05/19 05:06 Dose: 0.5 mg Magnesium Oxide (Magox 400 Tab*) 400 mg PO Q12HR [facility] Last Admin: 01/06/19 08:45 Dose: 400 mg Melatonin (Melatonin) 3 mg PO BEDTIME PRN PRN Reason: SLEEP Last Admin: 01/05/19 20:00 Dose: 3 mg Metoprolol Tartrate (Lopressor Iv*) 5 mg IV Q6H PRN PRN Reason: HR>110 Last Admin: 01/06/19 09:24 Dose: 5 mg Multi-Ingredient Mouthwash/Gargle (Biotene Dry Mouth Oral Rinse(Nf)) 5 ml MT Q2H PRN PRN Reason: DRY MOUTH Last Admin: 12/29/18 16:13 Dose: 5 ml Nystatin (Nystatin Suspension*) 500,000 units PO QID [facility] Stop: 01/11/19 10:36 Last Admin: 01/06/19 08:44 Dose: 500,000 units Oxycodone/Acetaminophen (Percocet 5/325 Tab*) 1 tab PO Q6H PRN PRN Reason: PAIN Last Admin: 01/06/19 08:44 Dose: 1 tab Pharmacy Profile Note (Vancomycin Trough Check) 1 note FOLLOW UP 1330 [facility] Stop: 01/07/19 13:31 Rivaroxaban (Xarelto(*)) 20 mg PO 1700 [facility] Last Admin: 01/05/19 16:20 Dose: 20 mg Exam: Gen: Chronically ill appearing, but alert and conversant, remains hoarse HEENT: MMM, mild thrush CV: RRR, no m/r/g Resp: limited exam, few crackles, no wheeze Abd: soft, nonTTP Ext: trace to 1+ edema ] [[Assessment: 63 yo F w remote hodgkin's disease sp ABVD/mediastinal RT w course c/b pneumonitis, pHTN, r brachial plexopathy and left lymphedema, now with T2N1M0 ER + IDC sp cycle 1 of Taxotere/cytoxan admitted with profound hyponatremia and quickly developed respiratory distress, febrile neutropenia and hypotension. Required intubation and prolonged pressor support with enterobacter bacteremia and MSSA PNA. Subsequently developed rapid afib, now appears sinus. Plan: febrile neutropenia with septic shock: - now resolved - early development despite growth factor support, ?from prior chemotherapy use - neutropenia has now resolved now with leukocytosis which is expected from Neulasta administration with slightly prolonged effect, no recurrent fevers Respiratory failure: - BiPAP yesterday, now stable on Vapotherm - CXR shows a picture of pulm edema - now that pressures have improved, start diuressing Enterobacter bacteremia: - source unclear, ?translocation from GI tract while neutropenic - TTE neg for vegetations - cont Vanco, day 03/21 MSSA PNA: - sputum grew MSSA - cont Vanco, day 03/21 - CT demonstrates dense consolidations and loculated pleural effusion - will plan to repeat CT 4 weeks after completing abx to ensure full resolution and r/o underlying malignancy Hyponatremia: - now improved Afib with RVR - appears sinus with PVCs on tele now - repeat 12-L EKG - cont tikosyn, keep mg >2 and K>4 - pending cards consult Hoarseness/thrush - cont nystatin - pending ENT consultation cont ICU level care, hopefully dc to floor tomorrow if she remains stable overnight
--- NOTE | 2019-01-06 11:10 | PN ---
Subjective Date of Service: 01/06/19 Interval History: Patient seen with the assistance of the company secretary. Patient is feeling better today. Overall energy level still very low, but respiratory fatigue she feels is improving with the Vapotherm. Patient has only an intermittent non-productive cough, no chest pain. Patient denies dizziness, wheezing, palpitations, N/V, abdominal pain, diarrhea, or other pain. Family History: Unchanged from Admission Social History: Unchanged from Admission Past Medical History: Unchanged from Admission Objective Active Medications: Acetaminophen (Tylenol Adult Liq*) 650 mg PO Q6H PRN PRN Reason: fever >102 Albuterol (Ventolin 2.5 Mg/3 Ml Neb.Rose*) 2.5 mg INH Q4H PRN PRN Reason: SOB/WHEEZING Last Admin: 01/06/19 02:36 Dose: 2.5 mg Ascorbic Acid (Vitamin C Tab*) 1,000 mg PO DAILY ÁLVARO Last Admin: 01/06/19 08:44 Dose: 1,000 mg Dofetilide (Tikosyn Cap*) 125 mcg PO 0930,1430,2230 [facility] Last Admin: 01/06/19 08:44 Dose: 125 mcg Famotidine (Pepcid Iv*) 20 mg IV SLOW PU DAILY [facility] Last Admin: 01/06/19 08:45 Dose: 20 mg Norepinephrine Bitartrate (Levophed 16 Mcg/Ml Premix Bag*) 4,000 mcg in 250 mls @ 18.75 mls/hr IV .INITIAL RATE ÁLVARO; Protocol Last Admin: 01/03/19 23:42 Dose: 18.75 mls/hr Vancomycin HCl 1,250 mg/ (Sodium Chloride) 250 mls @ 166.667 mls/hr IVPB Q12H [facility] Stop: 01/07/19 03:29 Last Admin: 01/06/19 02:24 Dose: 166.667 mls/hr Levothyroxine Sodium (Synthroid Tab*) 75 mcg PO QAM@0600 [facility] Last Admin: 01/06/19 06:19 Dose: 75 mcg Lorazepam (Ativan Tab(*)) 0.5 mg PO Q6H PRN PRN Reason: ANXIETY Last Admin: 01/05/19 05:06 Dose: 0.5 mg Magnesium Oxide (Magox 400 Tab*) 400 mg PO Q12HR [facility] Last Admin: 01/06/19 08:45 Dose: 400 mg Melatonin (Melatonin) 3 mg PO BEDTIME PRN PRN Reason: SLEEP Last Admin: 01/05/19 20:00 Dose: 3 mg Metoprolol Tartrate (Lopressor Iv*) 5 mg IV Q6H PRN PRN Reason: HR>110 Last Admin: 01/06/19 09:24 Dose: 5 mg Multi-Ingredient Mouthwash/Gargle (Biotene Dry Mouth Oral Rinse(Nf)) 5 ml MT Q2H PRN PRN Reason: DRY MOUTH Last Admin: 12/29/18 16:13 Dose: 5 ml Nystatin (Nystatin Suspension*) 500,000 units PO QID [facility] Stop: 01/11/19 10:36 Last Admin: 01/06/19 08:44 Dose: 500,000 units Oxycodone/Acetaminophen (Percocet 5/325 Tab*) 1 tab PO Q6H PRN PRN Reason: PAIN Last Admin: 01/06/19 08:44 Dose: 1 tab Pharmacy Profile Note (Vancomycin Trough Check) 1 note FOLLOW UP 1330 ONE Stop: 01/07/19 13:31 Rivaroxaban (Xarelto(*)) 20 mg PO 1700 [facility] Last Admin: 01/05/19 16:20 Dose: 20 mg Vital Signs - 8 hr 01/06/19 01/06/19 01/06/19 03:15 03:30 03:45 Temperature 98.1 F 98.1 F 98.1 F Pulse Rate 90 89 90 Respiratory 27 23 25 Rate Blood Pressure (mmHg) O2 Sat by Pulse 98 98 98 Oximetry 01/06/19 01/06/19 01/06/19 04:00 04:15 04:30 Temperature 98.2 F 98.2 F 98.2 F Pulse Rate 89 91 92 Respiratory 31 25 29 Rate Blood Pressure 132/75 (mmHg) O2 Sat by Pulse 98 98 98 Oximetry 01/06/19 01/06/19 01/06/19 04:45 05:00 05:01 Temperature 98.2 F 98.2 F 98.2 F Pulse Rate 88 94 91 Respiratory 23 22 35 Rate Blood Pressure 157/106 (mmHg) O2 Sat by Pulse 97 98 97 Oximetry 01/06/19 01/06/19 01/06/19 05:15 05:30 05:45 Temperature 98.2 F 98.2 F 98.2 F Pulse Rate 93 92 94 Respiratory 30 22 30 Rate Blood Pressure (mmHg) O2 Sat by Pulse 98 98 97 Oximetry 01/06/19 01/06/19 01/06/19 06:00 06:15 06:30 Temperature 98.2 F 98.4 F 98.4 F Pulse Rate 96 92 97 Respiratory 25 25 35 Rate Blood Pressure 156/114 (mmHg) O2 Sat by Pulse 94 98 94 Oximetry 01/06/19 01/06/19 01/06/19 06:45 07:00 07:15 Temperature 98.4 F 98.4 F 98.4 F Pulse Rate 100 100 95 Respiratory 38 27 34 Rate Blood Pressure 169/91 (mmHg) O2 Sat by Pulse 95 93 96 Oximetry 01/06/19 01/06/19 01/06/19 07:30 07:45 08:00 Temperature 98.4 F 98.4 F 98.4 F Pulse Rate 96 96 93 Respiratory 42 26 30 Rate Blood Pressure 136/77 (mmHg) O2 Sat by Pulse 96 97 95 Oximetry 01/06/19 01/06/19 01/06/19 08:15 08:30 08:44 Temperature 98.2 F 98.2 F Pulse Rate 95 98 Respiratory 30 37 20 Rate Blood Pressure (mmHg) O2 Sat by Pulse 93 97 Oximetry 01/06/19 01/06/19 01/06/19 08:45 09:00 09:01 Temperature 98.1 F 98.2 F 98.2 F Pulse Rate 97 96 96 Respiratory 18 35 29 Rate Blood Pressure 198/109 (mmHg) O2 Sat by Pulse 97 100 98 Oximetry 01/06/19 09:15 Temperature 98.1 F Pulse Rate 97 Respiratory 42 Rate Blood Pressure (mmHg) O2 Sat by Pulse 85 Oximetry Oxygen Devices in Use Now: High Flow Heated Nasal Cannula Appearance: Patient is a 63yo female who appears older than stated age and is sitting in the bed with increased WOB. Eyes: No Scleral Icterus, PERRLA Ears/Nose/Mouth/Throat: NL Teeth, Lips, Gums, Mucous Membranes Moist, - - Pharyngeal erythema. Neck: NL Appearance and Movements; NL JVP, Trachea Midline Respiratory: Symmetrical Chest Expansion and Respiratory Effort, - - Diminished breath sounds in B/L Lower lobes, inspiratory rales in RLL. No other adventitious lung sounds. Cardiovascular: RRR, - - 1+ B/L LE edema, RUE and LUE edema, worse in right arm. Grade 2/6 systolic murmur heard best at LUSB. Abdominal: NL Sounds; No Tenderness; No Distention, No Hepatosplenomegaly Extremities: No Clubbing, Cyanosis Skin: No Rash or Ulcers, No Nodules or Sclerosis Neurological: Alert and Oriented x 3, NL Sensation, NL Muscle Strength and Tone , - Result Diagrams: 01/05/19 06:00 01/04/19 05:35 Microbiology and Other Data: Microbiology 01/01/19 09:15 Aerobic Blood Culture - Final Blood Venous No Growth Day 5 Anaerobic Blood Culture - Final No Growth Day 5 12/31/18 14:40 Aerobic Blood Culture - Final Blood Venous No Growth Day 5 Anaerobic Blood Culture - Final No Growth Day 5 12/28/18 03:55 Aerobic Blood Culture - Final Blood Venous No Growth Day 5 Anaerobic Blood Culture - Final No Growth Day 5 12/28/18 01:15 Aerobic Blood Culture - Final Blood Venous No Growth Day 5 Anaerobic Blood Culture - Final Enterococcus Faecalis 01/01/19 12:09 Stool Gross Appearance - Final Stool C. difficile DNA Amplification - Final 027 Presumptive NEGATIVE Toxigenic C.diff NEGATIVE 12/29/18 03:50 Stool Culture - Final Stool Stool Gross Appearance - Final Shiga Toxin I & II - Final Negative Shiga Toxin 1 & 2 C. difficile DNA Amplification - Final 027 Presumptive NEGATIVE Toxigenic C.diff NEGATIVE 12/28/18 04:12 Gram Stain - Final Sputum Trach Sputum Culture - Final Staphylococcus Aureus Normal Flor 12/28/18 03:03 Urine Culture - Final Urine No Growth (<1,000 CFU/mL) 12/29/18 03:50 Stool Occult Blood (IMELDA) - Final Stool 12/28/18 04:28 Nasal Screen MRSA (PCR) - Final Nasal Mrsa Not Detected Assess/Plan/Problems-Billing Assessment: Patient is a 63yo female with a PMH for HFpEF, Tachy-Leonidas syndrome S/P Pacemaker and Afib, who has been admitted with MSSA pneumonia in the setting of chemotherapy for lung cancer and has had a fluctuating course needing prolonged ICU stay, intermittent vasopressive agents, and positive pressure ventilation. - Patient Problems (1) Acute respiratory failure with hypoxia Current Visit: No Status: Acute Priority: High Code(s): J96.01 - ACUTE RESPIRATORY FAILURE WITH HYPOXIA SNOMED Code(s): 22816857 Comment: - Due to CAP in setting of immunosupression and airway obstruction - Previously Intubated from 12/28-12/31 - Sputum grew MSSA and blood grew enterococcus - On day 9/10 of Vancomycin with improvement - Continue Vapotherm for respiratory support and alveolar recruitment and wean as tolerated - Clinically fluid overloaded with CXR evidence of pulmonary edema. Trial IV lasix as BP will allow. (2) Atrial fibrillation Current Visit: No Status: Acute Code(s): I48.91 - UNSPECIFIED ATRIAL FIBRILLATION SNOMED Code(s): 87364997 Comment: - On Xarelto - Continue Tikosyn - EKG today confirms NSR - Previously in RVR this admission. (3) Breast mass Current Visit: No Status: Acute Code(s): N63.0 - UNSPECIFIED LUMP IN UNSPECIFIED BREAST SNOMED Code(s): 67767837 Comment: - Low grade breast cancer S/P Mastectomy and 1 dose chemotherapy - Chemo on hold - Recieved Neulasta, possibly contributing to profound leukocytosis. (4) CHF (congestive heart failure) Current Visit: No Status: Acute Code(s): I50.9 - HEART FAILURE, UNSPECIFIED SNOMED Code(s): 97859760 Comment: - Acute on Chronic diastolic heart failure - Clinically fluid overloaded, previously hypotension precluded diuresis, trial IV lasix at this time. - Strict I/O and Daily Weights. (5) Chronic pleural effusion Current Visit: No Status: Acute Code(s): J90 - PLEURAL EFFUSION, NOT ELSEWHERE CLASSIFIED SNOMED Code(s): 27837011 Comment: - Still present on Chest CT - Repeat Chest CT after improved. (6) Hypotension Current Visit: No Status: Acute Comment: - Maintaining pressures not on Levophed, monitor with diuresis. (7) DVT prophylaxis Current Visit: No Status: Acute Code(s): RUR0183 - SNOMED Code(s): 782866782 Comment: - Xarelto (8) Full code status Current Visit: No Status: Acute Code(s): Z78.9 - OTHER SPECIFIED HEALTH STATUS SNOMED Code(s): 505421461 Status and Disposition: Inpatient ICU. Attending: Arsh Storey
[2019-01-06] MEDS ORDERED: Furosemide IV* 10 MG/ML VIAL (40 MG) IV ONE (11:48)
[2019-01-06 15:18] LABS: BUN/Creatinine Ratio 23.5 (8-20); Calcium 8.5 mg/dL (8.6-10.3); EGFR African American 147.9 (>60); EGFR Non-African American 122.2 (>60); Potassium 3.9 mmol/L (3.5-5.0)
[2019-01-06] MEDS: Rivaroxaban TAB(*) 20 MG TAB PO SCH (16:28)
[2019-01-06] MEDS ORDERED: Alteplase (CATHFLO)* 2 MG VIAL IV ONE (23:30)
[2019-01-07] MEDS: Vancomycin(*) 1,250 MG in NS 0.9% 250 ML* 250 ML IVPB SCH (03:04)
[2019-01-07] MEDS: oxyCODONE/Acetamin 5/325 MG* TAB PO PRN ×4 (03:35→22:12)
[2019-01-07 06:46] LABS: ABS Basophils 0.1 10^3/ul (0-0.2); ABS Lymphocytes 0.6 10^3/ul (1.0-4.8); ABS Monocytes 1.2 10^3/ul (0-0.8); ABS Neutrophils 15.9 10^3/ul (1.5-7.7); Hematocrit 33 % (35-47); Lymphocyte % 3.2 %; Mean Corpuscular HGB Conc 34 g/dL (31-36); Mean Corpuscular Hemoglobin 30 pg (27-31); Mean Corpuscular Volume 90 fL (80-97); Nucleated Red Blood Cells % 0.2; Platelet Count 546 10^3/uL (150-450); Red Blood Count 3.64 10^6 /uL (3.70-4.87); Red Cell Distribution Width 15 % (10-15); White Blood Count 17.7 10^3/uL (3.5-10.8)
[2019-01-07] MEDS: Levothyroxine TAB* 75 MCG TAB PO SCH (06:58)
[2019-01-07 07:00] LABS: Albumin 2.9 g/dL (3.2-5.2); BUN/Creatinine Ratio 28.9 (8-20); Calcium 8.6 mg/dL (8.6-10.3); EGFR African American 170.8 (>60); EGFR Non-African American 141.2 (>60); Globulin 2.9 g/dL (2-4); Magnesium 1.9 mg/dL (1.9-2.7); Total Bilirubin 0.5 mg/dL (0.2-1.0); Total Protein 5.8 g/dL (6.4-8.9)
[2019-01-07] MEDS: Nystatin SUSPENSION* 100000 UNITS/ML 5 ML UDC PO SCH ×5 (08:19→20:51)
[2019-01-07] MEDS: Famotidine IV* 10 MG/ML 2 ML (20 mg) IV SLOW PU SCH (08:19)
[2019-01-07] MEDS: Ascorbic Acid TAB* 500 MG PO SCH ×2 (08:19→11:20)
[2019-01-07] MEDS: Magnesium Oxide TAB* 400 MG PO SCH ×2 (08:19→20:52)
[2019-01-07] MEDS: Dofetilide CAP* 125 MCG PO SCH (08:42)
[2019-01-07] MEDS: LORazepam TAB(*) 0.5 MG PO PRN (08:42)
[2019-01-07] MEDS: Furosemide IV* 10 MG/ML VIAL (40 MG) IV SCH (11:32)
[2019-01-07] MEDS ORDERED: Vancomycin Trough Check NOTE FOLLOW UP ONE (13:30)
[2019-01-07] MEDS ORDERED: Magnesium Sulfate 2 GM IV* 2 GM/50 ML BAG IVPB ONE (14:17)
--- NOTE | 2019-01-07 14:23 | PN ---
Progress Note - Progress Note Date of Service: 01/07/19 SOAP: Subjective: [Doing relatively well. Weaned to 4L yesterday. Placed on vapotherm overnight , back on salter this am. Reports she is doing well from a respiratory perspective. She unfortunately lost her hair. She went back in to rapid afib again overnight. Voice is a little stronger. Objective: [ Vital Signs: Temp Pulse Resp BP Pulse Ox 98.6 F 105 26 121/88 97 01/07/19 12:15 01/07/19 12:15 01/07/19 12:15 01/07/19 12:00 01/07/19 12:15 Acetaminophen (Tylenol Adult Liq*) 650 mg PO Q6H PRN PRN Reason: fever >102 Albuterol (Ventolin 2.5 Mg/3 Ml Neb.Rose*) 2.5 mg INH Q4H PRN PRN Reason: SOB/WHEEZING Last Admin: 01/06/19 02:36 Dose: 2.5 mg Ascorbic Acid (Vitamin C Tab*) 1,000 mg PO DAILY ÁLVARO Last Admin: 01/07/19 11:20 Dose: Not Given Dofetilide (Tikosyn Cap*) 250 mcg PO BID ÁLVARO Famotidine (Pepcid Iv*) 20 mg IV SLOW PU DAILY Á[facility]ARO Last Admin: 01/07/19 08:19 Dose: 20 mg Furosemide (Lasix Iv*) 40 mg IV DAILY Á[facility]ARO Stop: 01/09/19 10:00 Last Admin: 01/07/19 11:32 Dose: 40 mg Norepinephrine Bitartrate (Levophed 16 Mcg/Ml Premix Bag*) 4,000 mcg in 250 mls @ 18.75 mls/hr IV .INITIAL RATE ÁLVARO; Protocol Last Admin: 01/03/19 23:42 Dose: 18.75 mls/hr Magnesium Sulfate (Magnesium Sulfate 2 Gm Iv*) 2 gm in 50 mls @ 50 mls/hr IVPB ONCE ONE Stop: 01/07/19 15:16 Levothyroxine Sodium (Synthroid Tab*) 75 mcg PO QAM@0600 [facility] Last Admin: 01/07/19 06:58 Dose: 75 mcg Lorazepam (Ativan Tab(*)) 0.5 mg PO Q6H PRN PRN Reason: ANXIETY Last Admin: 01/07/19 08:42 Dose: 0.5 mg Magnesium Oxide (Magox 400 Tab*) 400 mg PO Q12HR [facility] Last Admin: 01/07/19 08:19 Dose: 400 mg Melatonin (Melatonin) 3 mg PO BEDTIME PRN PRN Reason: SLEEP Last Admin: 01/05/19 20:00 Dose: 3 mg Metoprolol Tartrate (Lopressor Tab*) 25 mg PO BID [facility] Multi-Ingredient Mouthwash/Gargle (Biotene Dry Mouth Oral Rinse(Nf)) 5 ml MT Q2H PRN PRN Reason: DRY MOUTH Last Admin: 12/29/18 16:13 Dose: 5 ml Nystatin (Nystatin Suspension*) 500,000 units PO QID [facility] Stop: 01/11/19 10:36 Last Admin: 01/07/19 08:19 Dose: 500,000 units Oxycodone/Acetaminophen (Percocet 5/325 Tab*) 1 tab PO Q6H PRN PRN Reason: PAIN Last Admin: 01/07/19 09:53 Dose: 1 tab Rivaroxaban (Xarelto(*)) 20 mg PO 1700 [facility] Last Admin: 01/06/19 16:28 Dose: 20 mg Laboratory Results - last 24 hr 01/06/19 01/07/19 01/07/19 11:47 06:20 06:20 WBC 17.7 H RBC 3.64 L Hgb 11.0 L Hct 33 L MCV 90 MCH 30 MCHC 34 RDW 15 Plt Count 546 H D MPV 8.0 Neut % (Auto) 89.8 Lymph % (Auto) 3.2 Roane % (Auto) 6.7 Eos % (Auto) 0.0 Baso % (Auto) 0.3 Absolute Neuts (auto) 15.9 H Absolute Lymphs (auto) 0.6 L Absolute Monos (auto) 1.2 H Absolute Eos (auto) 0.0 Absolute Basos (auto) 0.1 Absolute Nucleated RBC 0.0 Nucleated RBC % 0.2 Sodium 137 139 Potassium 3.9 4.0 Chloride 94 L 95 L Carbon Dioxide 41 H* 40 H Anion Gap 2 4 BUN 12 13 Creatinine 0.51 0.45 L Est GFR ( Amer) 147.9 170.8 Est GFR (Non-Af Amer) 122.2 141.2 BUN/Creatinine Ratio 23.5 H 28.9 H Glucose 138 H 114 H Calcium 8.5 L 8.6 Magnesium 1.9 Total Bilirubin 0.50 AST 18 ALT 15 Alkaline Phosphatase 52 Total Protein 5.8 L Albumin 2.9 L Globulin 2.9 Albumin/Globulin Ratio 1.0 Exam: Gen: Chronically ill appearing, but alert and conversant, remains hoarse HEENT: MMM, mild thrush CV: RRR, no m/r/g Resp: limited exam, no adventitious sounds Abd: soft, nonTTP Ext: trace to 1+ edema, RUE is contracted, LUE is edematous ] [[Assessment: 63 yo F w remote hodgkin's disease sp ABVD/mediastinal RT w course c/b pneumonitis, pHTN, r brachial plexopathy and left lymphedema, now with T2N1M0 ER + IDC sp cycle 1 of Taxotere/cytoxan admitted with profound hyponatremia and quickly developed respiratory distress, febrile neutropenia and hypotension. Required intubation and prolonged pressor support with enterobacter bacteremia and MSSA PNA. Subsequently developed rapid afib, has been in and out of sinus rhythm. Plan: febrile neutropenia with septic shock: - now resolved - early development despite growth factor support, ?from prior chemotherapy use - neutropenia has now resolved now with leukocytosis which is expected from Neulasta administration with slightly prolonged effect, no recurrent fevers Respiratory failure: - weaned to 4L via NC and stable - CXR shows a picture of pulm edema - cont diuresis Enterobacter bacteremia: - source unclear, ?translocation from GI tract while neutropenic - TTE neg for vegetations - completed 10d of vancomycin, abx have been stopped MSSA PNA: - sputum grew MSSA - completed 10d of vancomycin, abx have been stopped - CT demonstrates dense consolidations and loculated pleural effusion - will plan to repeat CT 4 weeks after completing abx to ensure full resolution and r/o underlying malignancy Hyponatremia: - now improved Afib with RVR - sinus yesterday, but now rapid afib again - spoke with cardiology - resumed metoprolol 25 mg bid and he recommended increasing tikosyn to 250 mcg bid - Keep mg >2 and K>4 - repeat EKG tomorrow to monitor QTC with increasing tikosyn - pending cards consult Hoarseness/thrush - cont nystatin - pending ENT consultation cont ICU level care, hopefully dc to floor but needs different IV access apart from femoral line before she can move out ]
[2019-01-07] MEDS: Metoprolol Tartrate TAB* 25 MG PO SCH ×2 (14:25→20:52)
--- NOTE | 2019-01-07 16:33 | PN ---
Date of Service: 01/07/19 Critical Care Services: We are continuing to diurese. She seems comfortable today on nasal O2 at 7 L/ min. CXR shows continued pleural effusions. Has finished 10 days of vancomycin. Vital Signs: Temp Pulse Resp BP SpO2 FiO2 99.0 F 138 21 92/76 93 40 Physical Exam: Gen:Alert and appropriate Lungs: Diminished BS throughout Cor: Irreg rhythm Abdomen: Not distended Extremities: No change Fluid Balance (Past 24 Hours): I= O= Net Intake & Output 01/05/19 01/06/19 01/07/19 01/08/19 06:59 06:59 06:59 06:59 Intake Total 2101.9 848 1465 160.6 Output Total 1585 1481 2325 2354 Balance 516.9 -633 -860 -2193.4 Weight 164 lb 7.437 oz 167 lb 5.294 oz 164 lb 3.91 oz Intake: IV Fluids 93.5 49 358 40.6 NS 40 49 41 40.6 PB -Potassium Phosphate 67 vanco 53.5 250 IVPB 467 299 287 vanco 467 299 287 Medicated IV 11.4 CC - Norepinephrine/ 11.4 Levophed Oral 1530 500 820 120 Tube Feeding 0 Moffett Irrigate Amount 0 Output: [place] 1585 1451 2325 2354 Straight Cath 30 Tube Feeding Residual 0 Amount Wasted Other: Date of Last Bowel 01/02/19 01/07/19 Movement # Bowel Movements 1 Estimated Stool Amount Medium Labs: Laboratory Results - last 24 hr 01/07/19 01/07/19 01/07/19 06:20 06:20 14:12 WBC 17.7 H RBC 3.64 L Hgb 11.0 L Hct 33 L MCV 90 MCH 30 MCHC 34 RDW 15 Plt Count 546 H D MPV 8.0 Neut % (Auto) 89.8 Lymph % (Auto) 3.2 Mcdonald % (Auto) 6.7 Eos % (Auto) 0.0 Baso % (Auto) 0.3 Absolute Neuts (auto) 15.9 H Absolute Lymphs (auto) 0.6 L Absolute Monos (auto) 1.2 H Absolute Eos (auto) 0.0 Absolute Basos (auto) 0.1 Absolute Nucleated RBC 0.0 Nucleated RBC % 0.2 Sodium 139 Potassium 4.0 Chloride 95 Carbon Dioxide 40 Anion Gap 4 BUN 13 Creatinine 0.45 L Est GFR ( Amer) 170.8 Est GFR (Non-Af Amer) 141.2 BUN/Creatinine Ratio 28.9 H Glucose 114 H Calcium 8.6 Magnesium 1.9 Total Bilirubin 0.50 AST 18 ALT 15 Alkaline Phosphatase 52 Total Protein 5.8 L Albumin 2.9 L Globulin 2.9 Albumin/Globulin Ratio 1.0 Vancomycin Trough 17.0 Studies: None today Nutrition: Oral diet - intake good. Impression: Improving, but slowly. AFib continues but at a lower rate. No evidence of active sepsis. Plan: Continue diuresis and use beta-blockers for AFIB rate control. Critical Care Time: 30 minutes
[2019-01-07] MEDS: Rivaroxaban TAB(*) 20 MG TAB PO SCH (17:56)
[2019-01-07] MEDS: Dofetilide CAP* 250 MCG PO SCH (20:51)
[2019-01-07] MEDS: Melatonin 3 MG TAB PO PRN (22:12)
[2019-01-08] MEDS: oxyCODONE/Acetamin 5/325 MG* TAB PO PRN ×2 (05:45→11:18)
[2019-01-08] MEDS: Levothyroxine TAB* 75 MCG TAB PO SCH (05:46)
[2019-01-08 06:26] LABS: ABS Basophils 0.1 10^3/ul (0-0.2); ABS Lymphocytes 0.7 10^3/ul (1.0-4.8); ABS Monocytes 1.2 10^3/ul (0-0.8); ABS Neutrophils 13.4 10^3/ul (1.5-7.7); Eosinophil % 0.1 %; Hematocrit 35 % (35-47); Hemoglobin 11.3 g/dL (12.0-16.0); Lymphocyte % 4.4 %; Mean Corpuscular HGB Conc 32 g/dL (31-36); Mean Corpuscular Hemoglobin 29 pg (27-31); Mean Corpuscular Volume 90 fL (80-97); Mean Platelet Volume 7.9 fL (7.4-10.4); Nucleated Red Blood Cells % 0.1; Platelet Count 588 10^3/uL (150-450); Red Blood Count 3.89 10^6 /uL (3.70-4.87); Red Cell Distribution Width 15 % (10-15); White Blood Count 15.3 10^3/uL (3.5-10.8)
[2019-01-08 06:42] LABS: Albumin 3.1 g/dL (3.2-5.2); BUN/Creatinine Ratio 28.6 (8-20); Calcium 8.7 mg/dL (8.6-10.3); EGFR African American 154.8 (>60); Globulin 3.1 g/dL (2-4); Magnesium 2.3 mg/dL (1.9-2.7); Potassium 3.9 mmol/L (3.5-5.0); Total Bilirubin 0.5 mg/dL (0.2-1.0); Total Protein 6.2 g/dL (6.4-8.9)
[2019-01-08] MEDS: Dofetilide CAP* 250 MCG PO SCH ×2 (09:16→21:10)
[2019-01-08] MEDS: Metoprolol Tartrate TAB* 25 MG PO SCH ×2 (09:16→21:03)
[2019-01-08] MEDS: Magnesium Oxide TAB* 400 MG PO SCH ×2 (09:19→21:03)
[2019-01-08] MEDS: Famotidine TAB* 20 MG PO SCH (09:19)
[2019-01-08] MEDS: Furosemide IV* 10 MG/ML VIAL (40 MG) IV SCH (09:20)
[2019-01-08] MEDS: Ascorbic Acid TAB* 500 MG PO SCH (09:25)
[2019-01-08] MEDS: Nystatin SUSPENSION* 100000 UNITS/ML 5 ML UDC PO SCH ×4 (09:28→21:03)
[2019-01-08] MEDS: LORazepam TAB(*) 0.5 MG PO PRN (10:01)
--- NOTE | 2019-01-08 10:36 | PN ---
Progress Note - Progress Note Date of Service: 01/08/19 SOAP: Subjective: [Continues to do well. No new complaints. Tired of being in the hospital. Voice continues to get stronger. Back in sinus rhythm again. O2 sat stable with 3L supp O2.] Objective: [ Vital Signs: Temp Pulse Resp BP Pulse Ox 98.2 F 77 16 161/96 97 01/08/19 10:15 01/08/19 10:15 01/08/19 10:15 01/08/19 10:00 01/08/19 10:15 Acetaminophen (Tylenol Adult Liq*) 650 mg PO Q6H PRN PRN Reason: fever >102 Albuterol (Ventolin 2.5 Mg/3 Ml Neb.Rose*) 2.5 mg INH Q4H PRN PRN Reason: SOB/WHEEZING Last Admin: 01/06/19 02:36 Dose: 2.5 mg Ascorbic Acid (Vitamin C Tab*) 1,000 mg PO DAILY [facility] Last Admin: 01/08/19 09:25 Dose: 500 mg Dofetilide (Tikosyn Cap*) 250 mcg PO BID [facility] Last Admin: 01/08/19 09:16 Dose: 250 mcg Famotidine (Pepcid Tab*) 20 mg PO DAILY [facility] Last Admin: 01/08/19 09:19 Dose: 20 mg Furosemide (Lasix Iv*) 40 mg IV DAILY [facility] Stop: 01/09/19 10:00 Last Admin: 01/08/19 09:20 Dose: 40 mg Levothyroxine Sodium (Synthroid Tab*) 75 mcg PO QAM@0600 [facility] Last Admin: 01/08/19 05:46 Dose: 75 mcg Lorazepam (Ativan Tab(*)) 0.5 mg PO Q6H PRN PRN Reason: ANXIETY Last Admin: 01/08/19 10:01 Dose: 0.5 mg Magnesium Oxide (Magox 400 Tab*) 400 mg PO Q12HR [facility] Last Admin: 01/08/19 09:19 Dose: 400 mg Melatonin (Melatonin) 3 mg PO BEDTIME PRN PRN Reason: SLEEP Last Admin: 01/07/19 22:12 Dose: 3 mg Metoprolol Tartrate (Lopressor Tab*) 25 mg PO BID [facility] Last Admin: 01/08/19 09:16 Dose: 25 mg Multi-Ingredient Mouthwash/Gargle (Biotene Dry Mouth Oral Rinse(Nf)) 5 ml MT Q2H PRN PRN Reason: DRY MOUTH Last Admin: 12/29/18 16:13 Dose: 5 ml Nystatin (Nystatin Suspension*) 500,000 units PO QID [facility] Stop: 01/11/19 10:36 Last Admin: 01/08/19 09:28 Dose: 500,000 units Oxycodone/Acetaminophen (Percocet 5/325 Tab*) 1 tab PO Q6H PRN PRN Reason: PAIN Last Admin: 01/08/19 05:45 Dose: 1 tab Rivaroxaban (Xarelto(*)) 20 mg PO 1700 [facility] Last Admin: 01/07/19 17:56 Dose: 20 mg Laboratory Results - last 24 hr 01/07/19 01/08/19 01/08/19 14:12 06:00 06:00 WBC 15.3 H RBC 3.89 Hgb 11.3 L Hct 35 MCV 90 MCH 29 MCHC 32 RDW 15 Plt Count 588 H MPV 7.9 Neut % (Auto) 87.1 Lymph % (Auto) 4.4 White % (Auto) 7.8 Eos % (Auto) 0.1 Baso % (Auto) 0.6 Absolute Neuts (auto) 13.4 H Absolute Lymphs (auto) 0.7 L Absolute Monos (auto) 1.2 H Absolute Eos (auto) 0.0 Absolute Basos (auto) 0.1 Absolute Nucleated RBC 0.0 Nucleated RBC % 0.1 Sodium 139 Potassium 3.9 Chloride 93 L Carbon Dioxide 43 H* Anion Gap 3 BUN 14 Creatinine 0.49 L Est GFR ( Amer) 154.8 Est GFR (Non-Af Amer) 128.0 BUN/Creatinine Ratio 28.6 H Glucose 142 H Calcium 8.7 Magnesium 2.3 Total Bilirubin 0.50 AST 20 ALT 16 Alkaline Phosphatase 55 Total Protein 6.2 L Albumin 3.1 L Globulin 3.1 Albumin/Globulin Ratio 1.0 Vancomycin Trough 17.0 Exam: Gen: Chronically ill appearing, but alert and conversant, remains hoarse HEENT: MMM, mild thrush CV: RRR, no m/r/g Resp: CTA, decreased breath sounds throughout, but no w/c/r Abd: soft, nonTTP Ext: trace to 1+ edema, RUE is contracted, LUE is edematous ] [[Assessment: 63 yo F w remote hodgkin's disease sp ABVD/mediastinal RT w course c/b pneumonitis, pHTN, r brachial plexopathy and left lymphedema, now with T2N1M0 ER + IDC sp cycle 1 of Taxotere/cytoxan admitted with profound hyponatremia and quickly developed respiratory distress, febrile neutropenia and hypotension. Required intubation and prolonged pressor support with enterobacter bacteremia and MSSA PNA. Subsequently developed rapid afib, has been in and out of sinus rhythm. Plan: febrile neutropenia with septic shock: - now resolved - early development despite growth factor support, ?from prior chemotherapy use - neutropenia has now resolved now with leukocytosis which is improving. Leukocytosis is expected from Neulasta administration with slightly prolonged effect, no recurrent fevers Respiratory failure: - weaned to 3L via NC and stable - CXR shows a picture of pulm edema - cont diuresis Enterobacter bacteremia: - source unclear, ?translocation from GI tract while neutropenic - TTE neg for vegetations - completed 10d of vancomycin, abx have been stopped MSSA PNA: - sputum grew MSSA - completed 10d of vancomycin, abx have been stopped - CT demonstrates dense consolidations and loculated pleural effusion - will plan to repeat CT 4 weeks after completing abx to ensure full resolution and r/o underlying malignancy Hyponatremia: - now improved Afib with RVR - back in sinus rhythm after increasing tikosyn and resuming oral BB yesterday per cardiology recommendation - Cont metoprolol 25 mg bid and increased dose of tikosyn 250 mcg bid - Keep mg >2 and K>4 - repeat EKG daily to monitor QTC with increasing tikosyn - pending cards consult Hoarseness/thrush - cont nystatin - pending ENT consultation cont ICU level care, hopefully dc to floor but needs different IV access apart from femoral line before she can move out (midline pending for tomorrow)]
--- NOTE | 2019-01-08 13:38 | CONS ---
CC: Dr. Chirinos; Dr. Mcmullen; EULOGIO Teixeira; Dr. Rose CARDIOLOGY CONSULTATION: DATE OF CONSULTATION: 01/08/19 MANAGER REAL ESTATE: Dr. Rose. HISTORY OF PRESENT ILLNESS: I was asked by EULOGIO Teixeira, to see this 63-year- old female patie nt, who does have known history of paroxysmal atrial fibrillation, diastolic congestive heart failure , history of permanent pacemaker, history of fibrosis of the lungs, history of breast cancer, history of left bundle branch block. Apparently, the patient was hospitalized after she had 1 week of treat ment with chemotherapy for the breast. She has a history of Hodgkin's lymphoma, diastolic heart fail ure. She presented 1 week after her chemotherapy was initiated. She has a history of pneumonitis an d pulmonary hypertension. She was hospitalized with significant hyponatremia and respiratory distres s, intubated and extubated, she had febrile neutropenia and hypotension. She feels much better now. I was asked because of her rapid AFib management. After I talked to Hem/Onc services, we increased h er Tikosyn to 250 mcg twice a day. She was on it as an outpatient at 125 mcg 3 times a day and metop rolol, and actually this morning her heart rate is much better in the 65 to 70, she is in sinus rhyth m. She feels much better. She gives no chest pain, no significant shortness of breath, no orthopnea , no PND, no dizziness, no syncope, no fever, no chills, no skin rash, no tremors, no hematochezia, n o nausea, no vomiting, no abdominal pain, no syncope and no orthopnea is appreciated. PAST MEDICAL HISTORY: Past medical history is extensive. History of remote Hodgkin's disease, breas t cancer, chemotherapy, febrile neutropenia, hyponatremia. Other medical history includes history of diastolic heart failure, aortic valve disease, pacemaker, sinus node dysfunction, left bundle, atrial fibrillation and flutter. PAST SURGICAL HISTORY: Lung surgery in the past, mastectomy on the left side in September 2018 with axil karen dissection, laparotomy, wisdom teeth, permanent pacemaker implantation, cardiac cath in 2010, 65 % to 70% disease of D2 branch, medical treatment. MEDICATIONS: Her medications as an inpatient include: 1. Ventolin. 2. Vitamin C 1000 mg daily. 3. Tikosyn 250 mcg twice a day. 4. Pepcid 20 mg daily. 5. Lasix 40 mg daily. 6. Synthroid 75 mcg daily. 7. Magnesium 400 mg twice a day. 8. Lopressor 25 mg twice a day. 9. Xarelto 20 mg daily. ALLERGIES: She is allergic to PENICILLIN, MOLD, DUST, MULTAQ - difficulty breathing; LEVAQUIN - itch ing; SOTALOL - diarrhea; ATENOLOL - diarrhea; CARDIZEM - low blood pressure. FAMILY HISTORY: No family history of premature CAD. SOCIAL HISTORY: She is single, lives alone. No history of smoking, drinking or illicit drug use. S he used to smoke and she quit in 2006. She does use medical marijuana for chemotherapy, but not rece ntly. REVIEW OF SYSTEMS: Review of all other systems essentially is negative. PHYSICAL EXAMINATION: On exam, she is awake, alert, and oriented. She is not in acute distress. Vi joe Signs: From today, blood pressure is 120/52, pulse 77, in sinus rhythm, temperature 98.2, respir atory rate 20. Head Exam: Normocephalic and atraumatic head. Ears, Nose, and Throat: Essentially benign. Neck: Supple. JVP is not elevated. No carotid bruits. No masses in the neck is appreciat ed. Chest: Clear to auscultation. No rales, no wheeze. No added sounds appreciated. Heart: Normal and regular, S1 and S2. No added sounds. No gallops, no rubs. Abdomen: Benign. Positive bowel so unds. Extremities: No edema, no cyanosis, no clubbing. Skin exam is normal. Psych: Normal affect and mood. W[employer]ANGER: No focal deficits appreciated. DIAGNOSTIC STUDIES/LAB DATA: White blood cell today 15.3, on 01/02/19 it was 40.8; hemoglobin 11.3; hematocrit 35; platelets 588. Sodium 139, potassium 3.9, chloride 93, BUN 14, creatinine 0.49. LFTs are good. Her albumin is 6.2, globulin 3.1, and cortisol 18.79. Her EKG from today, sinus rhythm and complete left bundle branch block is appreciated. Her QTc is 51 9. We will keep a close eye on this. IMPRESSION: The patient is a 63-year-old female patient with: 1. Known history of paroxysmal atrial fibrillation. She is in normal sinus rhythm after increasing her Tikosyn. 2. History of diastolic congestive heart failure. 3. Known coronary artery disease with a branch disease, for medical treatment. 4. Chronic left bundle branch block. 5. Status post permanent pacemaker implantation for sinus node dysfunction. 6. History of breast cancer, status post surgery in September 2018 on the left side, status post initiat ing chemotherapy a week ago. 7. Admitted with febrile neutropenia and profound hyponatremia. 8. Remote history of Hodgkin's disease. PLAN: Overall she appears to be hemodynamically stable on today's visit. She is not in congestive h eart failure. She has no angina. I was happy to see her back into her normal sinus rhythm. It is v ezequiel important to follow up daily QTc after we increased her Tikosyn. Continue Xarelto. It is very i mportant to keep her electrolytes, especially potassium more than 4, magnesium more than 2, and fluid balance to avoid any significant congestive heart failure. She is to continue on her current medica tions accordingly. She is to be followed closely. Other medical management, noncardiac-wang as per Hem/Onc service. I answered all her concerns and questions to her satisfaction. I have discussed he r with the Hem/Onc service covering for the weekend. TIME SPENT: More than half of at least 65-plus minutes was in education and counseling mode, face-to -face, and making further recommendations. [id number]/[facility] #: [id number]
[2019-01-08] MEDS: Rivaroxaban TAB(*) 20 MG TAB PO SCH (18:27)
[2019-01-08] MEDS ORDERED: Lactated Ringers 1000 ML Bag* 1,000 ML IV ONE (19:00)
[2019-01-09] MEDS: Levothyroxine TAB* 75 MCG TAB PO SCH (05:31)
[2019-01-09 05:49] LABS: ABS Basophils 0.1 10^3/ul (0-0.2); ABS Lymphocytes 0.6 10^3/ul (1.0-4.8); ABS Monocytes 1.3 10^3/ul (0-0.8); ABS Neutrophils 10.9 10^3/ul (1.5-7.7); Eosinophil % 0.1 %; Hematocrit 33 % (35-47); Hemoglobin 10.9 g/dL (12.0-16.0); Mean Corpuscular HGB Conc 33 g/dL (31-36); Mean Corpuscular Hemoglobin 30 pg (27-31); Mean Corpuscular Volume 91 fL (80-97); Mean Platelet Volume 7.7 fL (7.4-10.4); Nucleated Red Blood Cells % 0.1; Platelet Count 542 10^3/uL (150-450); Red Blood Count 3.65 10^6 /uL (3.70-4.87); Red Cell Distribution Width 16 % (10-15)
[2019-01-09 06:24] LABS: Blood Urea Nitrogen 15 mg/dL (6-24); Calcium 8.5 mg/dL (8.6-10.3); Chloride 95 mmol/L (101-111); EGFR African American 151.3 (>60); Glucose 103 mg/dL (70-100); Magnesium 2.1 mg/dL (1.9-2.7); Potassium 3.9 mmol/L (3.5-5.0); Sodium 140 mmol/L (135-145)
[2019-01-09 06:28] LABS: CO2 Carbon Dioxide 45 mmol/L (22-32)
[2019-01-09] MEDS: Ascorbic Acid TAB* 500 MG PO SCH (08:15)
[2019-01-09] MEDS: LORazepam TAB(*) 0.5 MG PO PRN ×2 (08:15→17:30)
[2019-01-09] MEDS: Metoprolol Tartrate TAB* 25 MG PO SCH ×2 (08:15→22:13)
[2019-01-09] MEDS: Dofetilide CAP* 250 MCG PO SCH ×2 (08:15→22:13)
[2019-01-09] MEDS: Famotidine TAB* 20 MG PO SCH (08:16)
[2019-01-09] MEDS: Magnesium Oxide TAB* 400 MG PO SCH ×2 (08:16→22:13)
[2019-01-09] MEDS: Nystatin SUSPENSION* 100000 UNITS/ML 5 ML UDC PO SCH ×5 (08:16→22:14)
[2019-01-09] MEDS: oxyCODONE/Acetamin 5/325 MG* TAB PO PRN ×3 (08:28→20:30)
--- NOTE | 2019-01-09 12:45 | PN ---
Progress Note - Progress Note Date of Service: 01/09/19 SOAP: Subjective: []Feels OK. Still coughing some but hard to bring up stuff. Sick of not being able to move much. Motivated to start PT/OT and get home. Medications: Acetaminophen (Tylenol Adult Liq*) 650 mg PO Q6H PRN PRN Reason: fever >102 Albuterol (Ventolin 2.5 Mg/3 Ml Neb.Rose*) 2.5 mg INH Q4H PRN PRN Reason: SOB/WHEEZING Last Admin: 01/06/19 02:36 Dose: 2.5 mg Ascorbic Acid (Vitamin C Tab*) 1,000 mg PO DAILY [facility] Last Admin: 01/09/19 08:15 Dose: 1,000 mg Dofetilide (Tikosyn Cap*) 250 mcg PO BID [facility] Last Admin: 01/09/19 08:15 Dose: 250 mcg Famotidine (Pepcid Tab*) 20 mg PO DAILY [facility] Last Admin: 01/09/19 08:16 Dose: 20 mg Levothyroxine Sodium (Synthroid Tab*) 75 mcg PO QAM@0600 [facility] Last Admin: 01/09/19 05:31 Dose: 75 mcg Lorazepam (Ativan Tab(*)) 0.5 mg PO Q6H PRN PRN Reason: ANXIETY Last Admin: 01/09/19 08:15 Dose: 0.5 mg Magnesium Oxide (Magox 400 Tab*) 400 mg PO Q12HR [facility] Last Admin: 01/09/19 08:16 Dose: 400 mg Melatonin (Melatonin) 3 mg PO BEDTIME PRN PRN Reason: SLEEP Last Admin: 01/07/19 22:12 Dose: 3 mg Metoprolol Tartrate (Lopressor Tab*) 25 mg PO BID [facility] Last Admin: 01/09/19 08:15 Dose: 25 mg Multi-Ingredient Mouthwash/Gargle (Biotene Dry Mouth Oral Rinse(Nf)) 5 ml MT Q2H PRN PRN Reason: DRY MOUTH Last Admin: 12/29/18 16:13 Dose: 5 ml Nystatin (Nystatin Suspension*) 500,000 units PO QID [facility] Stop: 01/11/19 10:36 Last Admin: 01/09/19 08:16 Dose: 500,000 units Oxycodone/Acetaminophen (Percocet 5/325 Tab*) 1 tab PO Q6H PRN PRN Reason: PAIN Last Admin: 01/09/19 08:28 Dose: 1 tab Rivaroxaban (Xarelto(*)) 20 mg PO 1700 [facility] Last Admin: 01/08/19 18:27 Dose: 20 mg Objective: [] Vital Signs Temp Pulse Resp BP Pulse Ox 97.7 F 78 16 118/76 96 01/09/19 10:30 01/09/19 10:30 01/09/19 10:30 01/09/19 10:01 01/09/19 10:30 A&Ox3, EOMI Right arm weakness @ baseline Left arm lymphedema HRR, S1S2, SR on tele LS with dim. right base, harsh wet cough without sputum production Laboratory Results - last 24 hr 01/09/19 01/09/19 05:30 05:30 WBC 13.0 H RBC 3.65 L Hgb 10.9 L Hct 33 L MCV 91 MCH 30 MCHC 33 RDW 16 H Plt Count 542 H MPV 7.7 Neut % (Auto) 83.8 Lymph % (Auto) 5.0 [place] % (Auto) 10.0 Eos % (Auto) 0.1 Baso % (Auto) 1.1 Absolute Neuts (auto) 10.9 H Absolute Lymphs (auto) 0.6 L Absolute Monos (auto) 1.3 H Absolute Eos (auto) 0.0 Absolute Basos (auto) 0.1 Absolute Nucleated RBC 0.0 Nucleated RBC % 0.1 Sodium 140 Potassium 3.9 Chloride 95 L Carbon Dioxide 45 H* Anion Gap Not Reportable BUN 15 Creatinine 0.50 L Est GFR ( Amer) 151.3 Est GFR (Non-Af Amer) 125.0 BUN/Creatinine Ratio 30.0 H Glucose 103 H Calcium 8.5 L Magnesium 2.1 Assessment: []63 yo F w remote hodgkin's disease sp ABVD/mediastinal RT w course c/b pneumonitis, pHTN, r brachial plexopathy and left lymphedema, now with T2N1M0 ER + IDC sp cycle 1 of Taxotere/cytoxan admitted with profound hyponatremia and quickly developed respiratory distress, febrile neutropenia and hypotension. Required intubation and prolonged pressor support with enterobacter bacteremia and MSSA PNA. Subsequently developed rapid afib, has been in and out of sinus rhythm appearing stabilized with increased dose of Tikosyn. Plan: []Febrile neutropenia with septic shock: now resolved Respiratory failure: stable on 3L via NC - recent PNA with pulm. edema on CXR - dim. base with congestion present, repeat CXR today - start flutter valve Enterobacter bacteremia: - source unclear, ?translocation from GI tract while neutropenic - TTE neg for vegetations - completed 10d of vancomycin, abx have been stopped MSSA PNA (+sputum): - completed 10d of vancomycin, abx have been stopped - CT demonstrates dense consolidations and loculated pleural effusion - will plan to repeat CT 4 weeks after completing abx to ensure full resolution and r/o underlying malignancy Hyponatremia: resolved Afib with RVR - back in sinus rhythm after increasing tikosyn and resuming oral BB per cardiology recommendation - Keep mg >2 and K>4 - repeat EKG daily to monitor QTC with increasing tikosyn Hoarseness/thrush - cont nystatin - pending ENT consultation Dispo: unfortunately we do not have vascular access available today and therefore she requires ICU level care d/t arterial line. One midline in will transfer to floor, d/c tad, and start PT/OT
[2019-01-09] MEDS: Rivaroxaban TAB(*) 20 MG TAB PO SCH (16:14)
[2019-01-09] MEDS: Melatonin 3 MG TAB PO PRN (22:13)
[2019-01-10] MEDS: oxyCODONE/Acetamin 5/325 MG* TAB PO PRN ×4 (02:26→23:45)
[2019-01-10] MEDS: Levothyroxine TAB* 75 MCG TAB PO SCH (05:56)
[2019-01-10 06:09] LABS: ABS Basophils 0.1 10^3/ul (0-0.2); ABS Lymphocytes 0.5 10^3/ul (1.0-4.8); ABS Monocytes 1.1 10^3/ul (0-0.8); ABS Neutrophils 10.4 10^3/ul (1.5-7.7); Eosinophil % 0.1 %; Hematocrit 31 % (35-47); Hemoglobin 10.1 g/dL (12.0-16.0); Lymphocyte % 4.5 %; Mean Corpuscular HGB Conc 33 g/dL (31-36); Mean Corpuscular Hemoglobin 30 pg (27-31); Mean Corpuscular Volume 91 fL (80-97); Mean Platelet Volume 7.6 fL (7.4-10.4); Nucleated Red Blood Cells % 0.1; Platelet Count 487 10^3/uL (150-450); Red Blood Count 3.41 10^6 /uL (3.70-4.87); Red Cell Distribution Width 15 % (10-15); White Blood Count 12.1 10^3/uL (3.5-10.8)
[2019-01-10 06:26] LABS: ALT 13 U/L (7-52); AST 18 U/L (13-39); Albumin 2.8 g/dL (3.2-5.2); Albumin/Globulin Ratio 1.1 (1-3); Alkaline Phosphatase 43 U/L (34-104); BUN/Creatinine Ratio 31.3 (8-20); Blood Urea Nitrogen 15 mg/dL (6-24); Calcium 8.3 mg/dL (8.6-10.3); Chloride 95 mmol/L (101-111); EGFR African American 158.6 (>60); Globulin 2.6 g/dL (2-4); Glucose 109 mg/dL (70-100); Potassium 4.2 mmol/L (3.5-5.0); Sodium 138 mmol/L (135-145); Total Protein 5.4 g/dL (6.4-8.9)
[2019-01-10 06:30] LABS: CO2 Carbon Dioxide 44 mmol/L (22-32)
[2019-01-10] MEDS: LORazepam TAB(*) 0.5 MG PO PRN ×2 (07:16→21:22)
[2019-01-10] MEDS: Nystatin SUSPENSION* 100000 UNITS/ML 5 ML UDC PO SCH ×4 (08:18→21:22)
[2019-01-10] MEDS: Dofetilide CAP* 250 MCG PO SCH ×2 (08:19→21:22)
[2019-01-10] MEDS: Metoprolol Tartrate TAB* 25 MG PO SCH ×2 (08:19→21:22)
[2019-01-10] MEDS: Ascorbic Acid TAB* 500 MG PO SCH (08:19)
[2019-01-10] MEDS: Famotidine TAB* 20 MG PO SCH (08:20)
[2019-01-10] MEDS: Magnesium Oxide TAB* 400 MG PO SCH ×2 (08:20→21:23)
--- NOTE | 2019-01-10 10:05 | PN ---
Progress Note - Progress Note Date of Service: 01/10/19 SOAP: Subjective: []Feels fine. Plan for midline this AM. Excited to have mishra and femoral line removed in order to move more. Voice remains hoarse. Denies coughing with swallowing, but coughing sometimes. Medications: Acetaminophen (Tylenol Adult Liq*) 650 mg PO Q6H PRN PRN Reason: fever >102 Albuterol (Ventolin 2.5 Mg/3 Ml Neb.Rose*) 2.5 mg INH Q4H PRN PRN Reason: SOB/WHEEZING Last Admin: 01/06/19 02:36 Dose: 2.5 mg Ascorbic Acid (Vitamin C Tab*) 1,000 mg PO DAILY [facility] Last Admin: 01/10/19 08:19 Dose: 1,000 mg Dofetilide (Tikosyn Cap*) 250 mcg PO BID [facility] Last Admin: 01/10/19 08:19 Dose: 250 mcg Famotidine (Pepcid Tab*) 20 mg PO DAILY [facility] Last Admin: 01/10/19 08:20 Dose: 20 mg Levothyroxine Sodium (Synthroid Tab*) 75 mcg PO QAM@0600 [facility] Last Admin: 01/10/19 05:56 Dose: 75 mcg Lorazepam (Ativan Tab(*)) 0.5 mg PO Q6H PRN PRN Reason: ANXIETY Last Admin: 01/10/19 07:16 Dose: 0.5 mg Magnesium Oxide (Magox 400 Tab*) 400 mg PO Q12HR [facility] Last Admin: 01/10/19 08:20 Dose: 400 mg Melatonin (Melatonin) 3 mg PO BEDTIME PRN PRN Reason: SLEEP Last Admin: 01/09/19 22:13 Dose: 3 mg Metoprolol Tartrate (Lopressor Tab*) 25 mg PO BID [facility] Last Admin: 01/10/19 08:19 Dose: 25 mg Multi-Ingredient Mouthwash/Gargle (Biotene Dry Mouth Oral Rinse(Nf)) 5 ml MT Q2H PRN PRN Reason: DRY MOUTH Last Admin: 12/29/18 16:13 Dose: 5 ml Nystatin (Nystatin Suspension*) 500,000 units PO QID [facility] Stop: 01/11/19 10:36 Last Admin: 01/10/19 08:18 Dose: 500,000 units Oxycodone/Acetaminophen (Percocet 5/325 Tab*) 1 tab PO Q6H PRN PRN Reason: PAIN Last Admin: 01/10/19 08:19 Dose: 1 tab Rivaroxaban (Xarelto(*)) 20 mg PO 1700 [facility] Last Admin: 01/09/19 16:14 Dose: 20 mg Objective: [] Vital Signs Temp Pulse Resp BP Pulse Ox 98.1 F 90 35 188/101 92 01/10/19 08:00 01/10/19 08:00 01/10/19 08:19 01/10/19 08:00 01/10/19 08:00 A&Ox3, EOMI, RODRIGUES HRR, S1S2 LS dim. bilat. without rhonchi or wheeze +BS, abd. soft and non-tender Dark yellow urine via mishra Right arm weakness per baseline Left arm lymphedema per baseline Laboratory Results - last 24 hr 01/10/19 01/10/19 06:00 06:00 WBC 12.1 H RBC 3.41 L Hgb 10.1 L Hct 31 L MCV 91 MCH 30 MCHC 33 RDW 15 Plt Count 487 H D MPV 7.6 Neut % (Auto) 85.9 Lymph % (Auto) 4.5 [place] % (Auto) 9.0 Eos % (Auto) 0.1 Baso % (Auto) 0.5 Absolute Neuts (auto) 10.4 H Absolute Lymphs (auto) 0.5 L Absolute Monos (auto) 1.1 H Absolute Eos (auto) 0.0 Absolute Basos (auto) 0.1 Absolute Nucleated RBC 0.0 Nucleated RBC % 0.1 Sodium 138 Potassium 4.2 Chloride 95 L Carbon Dioxide 44 H* Anion Gap Not Reportable BUN 15 Creatinine 0.48 L Est GFR ( Amer) 158.6 Est GFR (Non-Af Amer) 131.0 BUN/Creatinine Ratio 31.3 H Glucose 109 H Calcium 8.3 L Total Bilirubin 0.30 AST 18 ALT 13 Alkaline Phosphatase 43 Total Protein 5.4 L Albumin 2.8 L Globulin 2.6 Albumin/Globulin Ratio 1.1 Assessment: []63 yo F w remote hodgkin's disease sp ABVD/mediastinal RT w course c/b pneumonitis, pHTN, r brachial plexopathy and left lymphedema, now with T2N1M0 ER + IDC sp cycle 1 of Taxotere/cytoxan admitted with profound hyponatremia and quickly developed respiratory distress, febrile neutropenia and hypotension. Required intubation and prolonged pressor support with enterobacter bacteremia and MSSA PNA. Subsequently developed rapid afib, has been in and out of sinus rhythm appearing stabilized with increased dose of Tikosyn. She is ready for transfer out of the ICU however this has been delayed by difficulty with vascular access. Plan: []Febrile neutropenia with septic shock: now resolved Respiratory failure: stable on 3L via NC - recent PNA with pulm. edema on CXR, cont. diuresis - start flutter valve Enterobacter bacteremia: - source unclear, ?translocation from GI tract while neutropenic - TTE neg for vegetations - completed 10d of vancomycin, abx have been stopped MSSA PNA (+sputum): - completed 10d of vancomycin, abx have been stopped - CT demonstrates dense consolidations and loculated pleural effusion - will plan to repeat CT 4 weeks after completing abx to ensure full resolution and r/o underlying malignancy Hyponatremia: resolved Afib with RVR - back in sinus rhythm after increasing tikosyn and resuming oral BB per cardiology recommendation - Keep mg >2 and K>4 - repeat EKG daily to monitor QTC with increasing tikosyn Hoarseness/thrush - cont nystatin - pending ENT consultation Dispo: transfer out of ICU, start rehab services and focus on return to baseline , suspect ARAM will be necessary
[2019-01-10] MEDS: Furosemide TAB* 40 MG PO SCH (12:46)
[2019-01-10] MEDS: Rivaroxaban TAB(*) 20 MG TAB PO SCH (17:03)
[2019-01-10] MEDS: Melatonin 3 MG TAB PO PRN (21:22)
[2019-01-11] MEDS: Levothyroxine TAB* 75 MCG TAB PO SCH (05:31)
[2019-01-11 05:52] LABS: ABS Basophils 0.1 10^3/ul (0-0.2); ABS Lymphocytes 0.6 10^3/ul (1.0-4.8); ABS Monocytes 1.3 10^3/ul (0-0.8); Eosinophil % 0.1 %; Hematocrit 35 % (35-47); Hemoglobin 11.6 g/dL (12.0-16.0); Lymphocyte % 4.6 %; Mean Corpuscular HGB Conc 33 g/dL (31-36); Mean Corpuscular Hemoglobin 30 pg (27-31); Mean Corpuscular Volume 91 fL (80-97); Nucleated Red Blood Cells % 0.2; Platelet Count 526 10^3/uL (150-450); Red Blood Count 3.84 10^6 /uL (3.70-4.87); Red Cell Distribution Width 16 % (10-15); White Blood Count 11.9 10^3/uL (3.5-10.8)
[2019-01-11 06:10] LABS: Albumin 3.2 g/dL (3.2-5.2); Calcium 8.8 mg/dL (8.6-10.3); EGFR African American 151.3 (>60); Globulin 3.2 g/dL (2-4); Magnesium 2.1 mg/dL (1.9-2.7); Potassium 4.1 mmol/L (3.5-5.0); Total Bilirubin 0.4 mg/dL (0.2-1.0); Total Protein 6.4 g/dL (6.4-8.9)
[2019-01-11] MEDS: Magnesium Oxide TAB* 400 MG PO SCH ×2 (09:05→20:49)
[2019-01-11] MEDS: Furosemide TAB* 40 MG PO SCH (09:05)
[2019-01-11] MEDS: Ascorbic Acid TAB* 500 MG PO SCH (09:06)
[2019-01-11] MEDS: Metoprolol Tartrate TAB* 25 MG PO SCH ×2 (09:06→20:49)
[2019-01-11] MEDS: Dofetilide CAP* 250 MCG PO SCH ×2 (09:06→20:49)
[2019-01-11] MEDS: Famotidine TAB* 20 MG PO SCH (09:07)
[2019-01-11] MEDS: Nystatin SUSPENSION* 100000 UNITS/ML 5 ML UDC PO SCH (09:07)
--- NOTE | 2019-01-11 11:03 | PN ---
Progress Note - Progress Note Date of Service: 01/11/19 SOAP: Subjective: []Feeling well. Excited to be up OOB and motivated to get home. Eating well. Voice stronger. Denies concerns today. Medications: Acetaminophen (Tylenol Adult Liq*) 650 mg PO Q6H PRN PRN Reason: fever >102 Albuterol (Ventolin 2.5 Mg/3 Ml Neb.Rose*) 2.5 mg INH Q4H PRN PRN Reason: SOB/WHEEZING Last Admin: 01/06/19 02:36 Dose: 2.5 mg Ascorbic Acid (Vitamin C Tab*) 1,000 mg PO DAILY [facility] Last Admin: 01/11/19 09:06 Dose: 1,000 mg Dofetilide (Tikosyn Cap*) 250 mcg PO BID [facility] Last Admin: 01/11/19 09:06 Dose: 250 mcg Famotidine (Pepcid Tab*) 20 mg PO DAILY [facility] Last Admin: 01/11/19 09:07 Dose: 20 mg Furosemide (Lasix Tab*) 40 mg PO DAILY [facility] Last Admin: 01/11/19 09:05 Dose: 40 mg Heparin Sodium (Porcine) (Heparin Flush Picc/Ml/Cvc(*)) 1 - 3 ml FLUSH 0600, 1800 [facility]; Protocol Last Admin: 01/11/19 05:31 Dose: 1 ml Levothyroxine Sodium (Synthroid Tab*) 75 mcg PO QAM@0600 [facility] Last Admin: 01/11/19 05:31 Dose: 75 mcg Lorazepam (Ativan Tab(*)) 0.5 mg PO Q6H PRN PRN Reason: ANXIETY Last Admin: 01/10/19 21:22 Dose: 0.5 mg Magnesium Oxide (Magox 400 Tab*) 400 mg PO Q12HR [facility] Last Admin: 01/11/19 09:05 Dose: 400 mg Melatonin (Melatonin) 3 mg PO BEDTIME PRN PRN Reason: SLEEP Last Admin: 01/10/19 21:22 Dose: 3 mg Metoprolol Tartrate (Lopressor Tab*) 25 mg PO BID [facility] Last Admin: 01/11/19 09:06 Dose: 25 mg Multi-Ingredient Mouthwash/Gargle (Biotene Dry Mouth Oral Rinse(Nf)) 5 ml MT Q2H PRN PRN Reason: DRY MOUTH Last Admin: 12/29/18 16:13 Dose: 5 ml Oxycodone/Acetaminophen (Percocet 5/325 Tab*) 1 tab PO Q6H PRN PRN Reason: PAIN Last Admin: 01/10/19 23:45 Dose: 1 tab Rivaroxaban (Xarelto(*)) 20 mg PO 1700 [facility] Last Admin: 01/10/19 17:03 Dose: 20 mg Objective: [] Vital Signs Temp Pulse Resp BP Pulse Ox 97.8 F 87 19 140/69 97 01/11/19 08:13 01/11/19 08:13 01/11/19 08:13 01/11/19 08:13 01/11/19 08:13 A&Ox3, EOMI Right arm brachioplexy per baseline Left arm lymphedema per baseline HRR, S1S2 LS dim. bilat. Laboratory Results - last 24 hr 01/11/19 01/11/19 05:38 05:38 WBC 11.9 H RBC 3.84 Hgb 11.6 L Hct 35 MCV 91 MCH 30 MCHC 33 RDW 16 H Plt Count 526 H MPV 8.0 Neut % (Auto) 83.4 Lymph % (Auto) 4.6 [place] % (Auto) 11.2 Eos % (Auto) 0.1 Baso % (Auto) 0.7 Absolute Neuts (auto) 10.0 H Absolute Lymphs (auto) 0.6 L Absolute Monos (auto) 1.3 H Absolute Eos (auto) 0.0 Absolute Basos (auto) 0.1 Absolute Nucleated RBC 0.0 Nucleated RBC % 0.2 Sodium 139 Potassium 4.1 Chloride 93 L Carbon Dioxide 43 H* Anion Gap 3 BUN 14 Creatinine 0.50 L Est GFR ( Amer) 151.3 Est GFR (Non-Af Amer) 125.0 BUN/Creatinine Ratio 28.0 H Glucose 116 H Calcium 8.8 Magnesium 2.1 Total Bilirubin 0.40 AST 20 ALT 15 Alkaline Phosphatase 49 Total Protein 6.4 Albumin 3.2 Globulin 3.2 Albumin/Globulin Ratio 1.0 Assessment: []63 yo F w remote hodgkin's disease sp ABVD/mediastinal RT w course c/b pneumonitis, pHTN, r brachial plexopathy and left lymphedema, now with T2N1M0 ER + IDC sp cycle 1 of Taxotere/cytoxan admitted with profound hyponatremia and quickly developed respiratory distress, febrile neutropenia and hypotension. Required intubation and prolonged pressor support with enterobacter bacteremia and MSSA PNA. Subsequently developed rapid afib, has been in and out of sinus rhythm appearing stabilized with increased dose of Tikosyn. She is out of the ICU and has started rehabilitation doing very well thus far. Plan: []Febrile neutropenia with septic shock: now resolved Respiratory failure: much improved however cont.'d SOB with activity, likely related to de-conditioning - recent PNA with pulm. edema on CXR, cont. diuresis - start flutter valve - mild hypercapnea, attempt to wean off O2 if possible Enterobacter bacteremia: - source unclear, ?translocation from GI tract while neutropenic - TTE neg for vegetations - completed 10d of vancomycin, abx have been stopped MSSA PNA (+sputum): - completed 10d of vancomycin, abx have been stopped - CT demonstrates dense consolidations and loculated pleural effusion - will plan to repeat CT 4 weeks after completing abx to ensure full resolution and r/o underlying malignancy (02/06) Hyponatremia: resolved Afib with RVR - back in sinus rhythm after increasing tikosyn and resuming oral BB per cardiology recommendation - Keep mg >2 and K>4 - repeat EKG daily to monitor QTC with increasing tikosyn Hoarseness/thrush - cont nystatin - pending ENT consultation - speech eval. with no acute needs Dispo: Acute or sub acute rehab once bed available
[2019-01-11] MEDS: Rivaroxaban TAB(*) 20 MG TAB PO SCH (17:22)
[2019-01-11] MEDS ORDERED: Furosemide IV* 10 MG/ML 2 ML VIAL (20 MG) IV ONE (18:00)
[2019-01-11] MEDS: oxyCODONE/Acetamin 5/325 MG* TAB PO PRN (20:49)
[2019-01-11] MEDS: Melatonin 3 MG TAB PO PRN (20:49)
[2019-01-12] MEDS: oxyCODONE/Acetamin 5/325 MG* TAB PO PRN ×4 (03:31→23:20)
[2019-01-12] MEDS: Levothyroxine TAB* 75 MCG TAB PO SCH (06:50)
[2019-01-12 07:27] LABS: Albumin 3.2 g/dL (3.2-5.2); Albumin/Globulin Ratio 1.1 (1-3); BUN/Creatinine Ratio 28.3 (8-20); Calcium 8.8 mg/dL (8.6-10.3); EGFR African American 166.6 (>60); EGFR Non-African American 137.6 (>60); Globulin 2.9 g/dL (2-4); Potassium 3.5 mmol/L (3.5-5.0); Total Bilirubin 0.4 mg/dL (0.2-1.0); Total Protein 6.1 g/dL (6.4-8.9)
[2019-01-12] MEDS: Famotidine TAB* 20 MG PO SCH (08:42)
[2019-01-12] MEDS: Magnesium Oxide TAB* 400 MG PO SCH ×2 (08:42→21:25)
[2019-01-12] MEDS: Ascorbic Acid TAB* 500 MG PO SCH (08:42)
[2019-01-12] MEDS: Furosemide TAB* 40 MG PO SCH (08:42)
[2019-01-12] MEDS: Dofetilide CAP* 250 MCG PO SCH ×2 (08:42→21:25)
[2019-01-12] MEDS: Metoprolol Tartrate TAB* 25 MG PO SCH ×2 (08:42→21:25)
[2019-01-12] MEDS ORDERED: LORazepam TAB(*) 0.5 MG PO PRN (08:59)
--- NOTE | 2019-01-12 09:09 | PN ---
Progress Note - Progress Note Date of Service: 01/12/19 SOAP: Subjective: feeling much better today. breathing slowly improving. Objective: Vital Signs Temp Pulse Resp BP Pulse Ox 97.2 F 78 20 109/66 97 01/12/19 03:15 01/12/19 07:39 01/12/19 07:39 01/12/19 07:39 01/12/19 07:39 perr eomi op moist mild exp wheeze, distant bs s1 s2 nl soft nt +bs bl 1+ le edema l arm lymphedema r arm atrophy A+O x 3 Laboratory Results - last 24 hr 01/12/19 06:45 Sodium 137 Potassium 3.5 Chloride 91 L Carbon Dioxide 45 H* Anion Gap 1 L BUN 13 Creatinine 0.46 L Est GFR ( Amer) 166.6 Est GFR (Non-Af Amer) 137.6 BUN/Creatinine Ratio 28.3 H Glucose 150 H Calcium 8.8 Total Bilirubin 0.40 AST 26 ALT 17 Alkaline Phosphatase 47 Total Protein 6.1 L Albumin 3.2 Globulin 2.9 Albumin/Globulin Ratio 1.1 Acetaminophen (Tylenol Adult Liq*) 650 mg PO Q6H PRN PRN Reason: fever >102 Albuterol (Ventolin 2.5 Mg/3 Ml Neb.Rose*) 2.5 mg INH Q4H PRN PRN Reason: SOB/WHEEZING Last Admin: 01/06/19 02:36 Dose: 2.5 mg Ascorbic Acid (Vitamin C Tab*) 1,000 mg PO DAILY [facility] Last Admin: 01/12/19 08:42 Dose: 1,000 mg Dofetilide (Tikosyn Cap*) 250 mcg PO BID [facility] Last Admin: 01/12/19 08:42 Dose: 250 mcg Famotidine (Pepcid Tab*) 20 mg PO DAILY [facility] Last Admin: 01/12/19 08:42 Dose: 20 mg Furosemide (Lasix Tab*) 40 mg PO DAILY [facility] Last Admin: 01/12/19 08:42 Dose: 40 mg Heparin Sodium (Porcine) (Heparin Flush Picc/Ml/Cvc(*)) 1 - 3 ml FLUSH 0600, 1800 [facility]; Protocol Last Admin: 01/12/19 06:50 Dose: 1 ml Potassium Chloride (Potassium Chloride 10 Meq/50 Ml Ivpremix*) 10 meq in 50 mls @ 50 mls/hr IV Q1H [facility] Stop: 01/12/19 12:59 Levothyroxine Sodium (Synthroid Tab*) 75 mcg PO QAM@0600 [facility] Last Admin: 01/12/19 06:50 Dose: 75 mcg Lorazepam (Ativan Tab(*)) 0.5 mg PO Q4H PRN PRN Reason: ANXIETY Magnesium Oxide (Magox 400 Tab*) 400 mg PO Q12HR [facility] Last Admin: 01/12/19 08:42 Dose: 400 mg Melatonin (Melatonin) 3 mg PO BEDTIME PRN PRN Reason: SLEEP Last Admin: 01/11/19 20:49 Dose: 3 mg Metoprolol Tartrate (Lopressor Tab*) 25 mg PO BID [facility] Last Admin: 01/12/19 08:42 Dose: 25 mg Multi-Ingredient Mouthwash/Gargle (Biotene Dry Mouth Oral Rinse(Nf)) 5 ml MT Q2H PRN PRN Reason: DRY MOUTH Last Admin: 12/29/18 16:13 Dose: 5 ml Oxycodone/Acetaminophen (Percocet 5/325 Tab*) 1 tab PO Q4H PRN PRN Reason: PAIN Potassium Chloride (Klor Con Er Tab*) 20 meq PO DAILY [facility] Rivaroxaban (Xarelto(*)) 20 mg PO 1700 [facility] Last Admin: 01/11/19 17:22 Dose: 20 mg Assessment: 63 yo F w remote hodgkin's disease sp ABVD/mediastinal RT w course c/b pneumonitis, pHTN, r brachial plexopathy and left lymphedema, now with T2N1M0 ER + IDC sp cycle 1 of Taxotere/cytoxan admitted with profound hyponatremia and quickly developed respiratory distress, febrile neutropenia and hypotension. Required intubation and prolonged pressor support with enterobacter bacteremia and MSSA PNA. Currently markedly better and recovering. there are NO further plans for chemotherapy, and we will start and AI as outpatient. Plan: Febrile neutropenia with septic shock: now resolved Respiratory failure: much improved however cont.'d SOB with activity, likely related to de-conditioning - recent PNA with pulm. edema on CXR, cont. diuresis - cont flutter valve - mild hypercapnea, attempt to wean off O2 if possible -pulm consult tomorrow if necessary Enterobacter bacteremia: - source unclear, ?translocation from GI tract while neutropenic - TTE neg for vegetations - completed 10d of vancomycin, abx have been stopped MSSA PNA (+sputum): - completed 10d of vancomycin, abx have been stopped - CT demonstrates dense consolidations and loculated pleural effusion--chronic - will plan to repeat CT 4 weeks after completing abx to ensure resolution, though again the effusion is chronic and has been tapped several times in past Hyponatremia: resolved Afib with RVR - back in sinus rhythm after increasing tikosyn and resuming oral BB per cardiology recommendation - Keep mg >2 and K>4 - repeat EKG daily to monitor QTC with increasing tikosyn Hoarseness/thrush - cont nystatin - speech eval. with no acute needs Dispo: Acute or sub acute rehab once bed available
[2019-01-12] MEDS: KCL 10 MEQ/50 ML IVPREMIX* 10 MEQ/50 ML BAG IV SCH ×3 (10:47→14:19)
[2019-01-12] MEDS: Potassium Chlor TAB* 20 MEQ TAB.ER PO SCH (10:47)
[2019-01-12] MEDS: Rivaroxaban TAB(*) 20 MG TAB PO SCH (17:00)
[2019-01-12] MEDS: Melatonin 3 MG TAB PO PRN (23:20)
[2019-01-13] MEDS: oxyCODONE/Acetamin 5/325 MG* TAB PO PRN (05:49)
[2019-01-13] MEDS: Levothyroxine TAB* 75 MCG TAB PO SCH (05:50)
[2019-01-13 06:18] LABS: ABS Basophils 0.1 10^3/ul (0-0.2); ABS Lymphocytes 0.7 10^3/ul (1.0-4.8); ABS Monocytes 1.2 10^3/ul (0-0.8); ABS Neutrophils 10.2 10^3/ul (1.5-7.7); Eosinophil % 0.2 %; Hematocrit 35 % (35-47); Hemoglobin 11.6 g/dL (12.0-16.0); Mean Corpuscular HGB Conc 33 g/dL (31-36); Mean Corpuscular Hemoglobin 30 pg (27-31); Mean Corpuscular Volume 92 fL (80-97); Mean Platelet Volume 8.1 fL (7.4-10.4); Nucleated Red Blood Cells % 0.3; Platelet Count 465 10^3/uL (150-450); Red Blood Count 3.85 10^6 /uL (3.70-4.87); Red Cell Distribution Width 16 % (10-15); White Blood Count 12.2 10^3/uL (3.5-10.8)
[2019-01-13 06:35] LABS: Albumin 3.5 g/dL (3.2-5.2); Albumin/Globulin Ratio 1.1 (1-3); BUN/Creatinine Ratio 29.2 (8-20); Calcium 9.2 mg/dL (8.6-10.3); EGFR African American 158.6 (>60); Globulin 3.3 g/dL (2-4); Magnesium 2.1 mg/dL (1.9-2.7); Potassium 4.2 mmol/L (3.5-5.0); Total Bilirubin 0.5 mg/dL (0.2-1.0); Total Protein 6.8 g/dL (6.4-8.9)
[2019-01-13] MEDS: Magnesium Oxide TAB* 400 MG PO SCH (09:24)
[2019-01-13] MEDS: Ascorbic Acid TAB* 500 MG PO SCH (09:24)
[2019-01-13] MEDS: Famotidine TAB* 20 MG PO SCH (09:24)
[2019-01-13] MEDS: Dofetilide CAP* 250 MCG PO SCH (09:25)
[2019-01-13] MEDS: Furosemide TAB* 40 MG PO SCH (09:25)
[2019-01-13] MEDS: Metoprolol Tartrate TAB* 25 MG PO SCH (09:25)
[2019-01-13] MEDS: Potassium Chlor TAB* 20 MEQ TAB.ER PO SCH (09:25)
--- NOTE | 2019-01-13 10:17 | PN ---
Progress Note - Progress Note Date of Service: 01/13/19 SOAP: Subjective: [Reports she is doing well. Struggling to get some rest. Still coughing. No dyspnea at rest. Ambulating with a walker and motivated to get stronger.] Objective: [ Vital Signs: Temp Pulse Resp BP Pulse Ox 97.6 F 88 16 112/58 100 01/13/19 08:00 01/13/19 10:09 01/13/19 10:09 01/13/19 08:00 01/13/19 10:09 Acetaminophen (Tylenol Adult Liq*) 650 mg PO Q6H PRN PRN Reason: fever >102 Albuterol (Ventolin 2.5 Mg/3 Ml Neb.Rose*) 2.5 mg INH Q4H PRN PRN Reason: SOB/WHEEZING Last Admin: 01/06/19 02:36 Dose: 2.5 mg Ascorbic Acid (Vitamin C Tab*) 1,000 mg PO DAILY [facility] Last Admin: 01/13/19 09:24 Dose: 1,000 mg Dofetilide (Tikosyn Cap*) 250 mcg PO BID [facility] Last Admin: 01/13/19 09:25 Dose: 250 mcg Famotidine (Pepcid Tab*) 20 mg PO DAILY [facility] Last Admin: 01/13/19 09:24 Dose: 20 mg Furosemide (Lasix Tab*) 40 mg PO DAILY [facility] Last Admin: 01/13/19 09:25 Dose: 40 mg Heparin Sodium (Porcine) (Heparin Flush Picc/Ml/Cvc(*)) 1 - 3 ml FLUSH 0600, 1800 [facility]; Protocol Last Admin: 01/13/19 05:50 Dose: 1 ml Levothyroxine Sodium (Synthroid Tab*) 75 mcg PO QAM@0600 [facility] Last Admin: 01/13/19 05:50 Dose: 75 mcg Lorazepam (Ativan Tab(*)) 0.5 mg PO Q4H PRN PRN Reason: ANXIETY Magnesium Oxide (Magox 400 Tab*) 400 mg PO Q12HR [facility] Last Admin: 01/13/19 09:24 Dose: 400 mg Melatonin (Melatonin) 3 mg PO BEDTIME PRN PRN Reason: SLEEP Last Admin: 01/12/19 23:20 Dose: 3 mg Metoprolol Tartrate (Lopressor Tab*) 25 mg PO BID [facility] Last Admin: 01/13/19 09:25 Dose: 25 mg Multi-Ingredient Mouthwash/Gargle (Biotene Dry Mouth Oral Rinse(Nf)) 5 ml MT Q2H PRN PRN Reason: DRY MOUTH Last Admin: 12/29/18 16:13 Dose: 5 ml Oxycodone/Acetaminophen (Percocet 5/325 Tab*) 1 tab PO Q4H PRN PRN Reason: PAIN Last Admin: 01/13/19 05:49 Dose: 1 tab Potassium Chloride (Klor Con Er Tab*) 20 meq PO DAILY [facility] Last Admin: 01/13/19 09:25 Dose: 20 meq Rivaroxaban (Xarelto(*)) 20 mg PO 1700 [facility] Last Admin: 01/12/19 17:00 Dose: 20 mg Laboratory Results - last 24 hr 01/13/19 01/13/19 06:00 06:00 WBC 12.2 H RBC 3.85 Hgb 11.6 L Hct 35 MCV 92 MCH 30 MCHC 33 RDW 16 H Plt Count 465 H D MPV 8.1 Neut % (Auto) 83.2 Lymph % (Auto) 6.0 [place] % (Auto) 9.5 Eos % (Auto) 0.2 Baso % (Auto) 1.1 Absolute Neuts (auto) 10.2 H Absolute Lymphs (auto) 0.7 L Absolute Monos (auto) 1.2 H Absolute Eos (auto) 0.0 Absolute Basos (auto) 0.1 Absolute Nucleated RBC 0.0 Nucleated RBC % 0.3 Sodium 135 Potassium 4.2 Chloride 91 L Carbon Dioxide 42 H* Anion Gap 2 BUN 14 Creatinine 0.48 L Est GFR ( Amer) 158.6 Est GFR (Non-Af Amer) 131.0 BUN/Creatinine Ratio 29.2 H Glucose 144 H Calcium 9.2 Magnesium 2.1 Total Bilirubin 0.50 AST 25 ALT 18 Alkaline Phosphatase 51 Total Protein 6.8 Albumin 3.5 Globulin 3.3 Albumin/Globulin Ratio 1.1 Exam: Gen: chronically ill and fatigued appearing female in NAD HEENT: MMM, hoarse voice but getting stronger CV: RRR, no m/r/g Resp: decreased breath sounds in LLL, otherwise CTA Abd: soft, nonTTP Ext: 1-2+ ALTAGRACIA] [Assessment: 63 yo F w remote hodgkin's disease sp ABVD/mediastinal RT w course c/b pneumonitis, pHTN, r brachial plexopathy and left lymphedema, now with [id number] ER + IDC sp cycle 1 of Taxotere/cytoxan admitted with profound hyponatremia and quickly developed respiratory distress, febrile neutropenia and hypotension. Required intubation and prolonged pressor support with enterobacter bacteremia and MSSA PNA. Currently markedly better and recovering. there are NO further plans for chemotherapy, and we will start and AI as outpatient. Plan: Febrile neutropenia with septic shock: now resolved Respiratory failure: much improved however cont.'d SOB with activity, likely related to de-conditioning - recent PNA with pulm. edema on CXR, cont. diuresis - cont flutter valve - mild hypercapnea, attempt to wean off O2 if possible Enterobacter bacteremia: - source unclear, ?translocation from GI tract while neutropenic - TTE neg for vegetations - completed 10d of vancomycin, abx have been stopped MSSA PNA (+sputum): - completed 10d of vancomycin, abx have been stopped - CT demonstrates dense consolidations with hilar adenopathy and loculated pleural effusion--chronic - will plan to repeat CT 4 weeks after completing abx to ensure resolution, though again the effusion is chronic and has been tapped several times in past with negative cytology Hyponatremia: resolved Afib with RVR - back in sinus rhythm after increasing tikosyn and resuming oral BB per cardiology recommendation - Keep mg >2 and K>4 - repeat EKG daily to monitor QTC with increasing tikosyn Hoarseness/thrush - cont nystatin - speech eval. with no acute needs Dispo: plan for dc to [facility] pending insurance authorization
[2019-01-13 11:43] VITALS: BP 111/79
--- NOTE | 2019-01-13 21:49 | DS ---
CC: Dr. Chirinos; Dr. Janice Lay * DISCHARGE SUMMARY: DATE OF ADMISSION: 12/26/18 DATE OF DISCHARGE: 01/13/19 PRIMARY CARE PROVIDER: Dr. Chirinos. PRIMARY BLOW MOLD MACHINE OPERATOR: Dr. Rose. PRIMARY ONCOLOGIST: Dr. Janice Lay. ATTENDING PHYSICIAN: Dr. Saqib Constantino.* (DICTATED BY EULOGIO SAN) DISCHARGING PROVIDER: EULOGIO San. PRIMARY DISCHARGE DIAGNOSES: 1. Febrile neutropenia with septic shock secondary to methicillin-susceptible Staphylococcus aureus pneumonia and Enterobacter bacteremia. 2. Respiratory failure requiring intubation. 3. Enterobacter bacteremia - source is unclear possible from translocation from the gastrointestinal tract while neutropenic. 4. Methicillin-susceptible Staphylococcus aureus pneumonia - culture positive from sputum, completed 10 days of IV vancomycin. 5. Hyponatremia - secondary to fluid overload. 6. Atrial fibrillation with rapid ventricular response. 7. Left upper extremity lymphedema. 8. Right brachial pexy. 9. Hypothyroidism. DISCHARGE MEDICATIONS: 1. Vitamin C 1000 mg p.o. daily. 2. Multivitamin 1 tablet p.o. daily. 3. Levothyroxine 75 mcg p.o. daily. 4. Magnesium oxide 400 mg p.o. twice daily. 5. Metoprolol tartrate 25 mg p.o. twice daily. 6. [place] 3 fatty acid 1 capsule p.o. daily. 7. Potassium 20 mEq p.o. daily. 8. Ranitidine 150 mg p.o. daily. 9. Xarelto 20 mg p.o. daily. 10. Albuterol 2 puffs inhaled q.6 hours as needed for shortness of breath. 11. Clonazepam 1 mg p.o. at bedtime. 12. Tikosyn 250 mcg p.o. b.i.d. 13. Ativan 0.5 mg p.o. q.4 hours as needed. 14. Melatonin 3 mg p.o. at bedtime. 15. Oxycodone 1 tablet p.o. q.4 hours as needed for pain. 16. Torsemide 20 mg p.o. daily. HOSPITAL IMAGIN. Chest x-ray on 12/27/18 shows small right pleural effusion with right basilar atelectasis versus consolidation. 2. Repeat chest x-ray on 12/27/18 shows persistent patchy airspace disease at the right lung base. 3. Abdominal x-ray, 12/28/18, shows left femoral central venous catheter, position is indeterminant. 4. Chest x-ray, 12/28/18, shows lines and tubes, patchy right basilar atelectasis versus consolidation. 5. CT brain shows no acute intracranial findings, sinus disease with air fluid level in the left sphenoid sinus. 6. Chest x-ray, 12/29/18, improved aeration at the right lung base. 7. Chest x-ray, 12/30/18, shows no acute disease. 8. Chest x-ray, 12/31/18, shows constellation of findings suspicious for asymmetric pulmonary edema with associated moderate right pleural effusion. 9. CT chest, shows partially loculated small right pleural effusion and probable central airway obstruction at the right upper lobe, right middle lobe, to a less extent at the right lower lobe with post obstructive pneumonia. Right hilar lymphadenopathy is not excluded on the basis of this exam. Moderately large dependent left pleural effusion with proportional atelectasis. 10. Chest x-ray, 01/01/19, shows no significant change in probable pulmonary vascular congestion and interstitial edema with potential co-existing right mid- to- lower lung zone pulmonary infiltrate. 11. Chest x-ray, 01/05/19, findings consistent with pulmonary edema and associated pleural effusion. 12. Chest x-ray, 01/06/19, shows findings most consistent with congestive heart failure. 13. Chest x-ray, 01/09/19, shows findings consistent with congestive heart failure and/or pneumonia, which is unchanged. 14. Transthoracic echocardiogram shows left ventricular systolic function estimated at 55% to 60%. There is a pacer wire in the right ventricle. No obvious vegetations or other acute findings noted. HOSPITAL COURSE: Kallie Traylor is a 63-year-old female with a remote history of Hodgkin's lymphoma status post treatment with ABVD and mediastinal radiation therapy as well as hypertension, right brachial plexopathy and left upper extremity lymphedema who was diagnosed with left-sided breast cancer status post mastectomy, which was complicated by some delayed wound healing and eventually underwent cycle 1 of adjuvant chemotherapy with Taxotere and cyclophosphamide on 12/21/18. The patient was seen in the clinic for routine followup and complaints of some mild weakness. She had reported holding her diuretic over the weekend as she was concerned about feeling weak and dehydrated following chemotherapy. Her labs on 12/26/18 demonstrated a sodium of 116 mmol/L. She was subsequently admitted to the hospital with concerns for hyponatremia secondary to fluid overload to results in heart failure and subsequent inadequate diuresis. The patient was then started on IV furosemide, but unfortunately her sodium subsequently fell further to 112 mmol/L with some changes in mental status, most notably some increased lethargy and mild fatigue. The patient was subsequently transferred to ICU and hypotonic saline was started and the patient's sodium improved in approximately 24 hours. Within that 24 hours, the patient developed acute respiratory distress requiring intubation. Her sputum cultures eventually grew MSSA and blood cultures grew Enterococcus faecalis. Urine culture showed no growth. The patient was subsequently treated with vancomycin for both enterococcus as well as MSSA and her respiratory status slowly improved to the point that she was extubated. The patient's respiratory status suddenly became worse again requiring BiPAP for a period of time. Her chest x-ray was consistent with findings of pulmonary edema. She was aggressively diuresed and her respiratory status improved again further. Regarding source of enterococcus, there was not a clear source for bacteremia, but discussion with infectious disease specialist felt that this may have been got translocation during the time of neutropenia and her blood cultures cleared quickly without any vegetations noted on transthoracic echocardiogram. The patient subsequently developed rapid AFib. She has a history of chronic AFib and is under the care of Dr. Rose for this. She is on Tikosyn. She went in and out of atrial fibrillation. Eventually, her Tikosyn dose was increased under the guidance of Cardiology and she remained in a normal sinus rhythm. QTc was monitored closely for the several days after dose increase and maintained somewhere around [address], the patient had concern for hilar adenopathy with possible postobstructive pneumonia with significant consolidation in the right upper lobe. This adenopathy is likely reactive in the setting of acute pneumonia, but will be followed up with a repeat CT scan approximately 4 weeks after completing antibiotics. The patient was notably deconditioned from her prolonged hospitalization and nearing the end of her hospital stay was able to ambulate a few steps with the assistance of a walker, but felt that rehab would be necessary to get her back to her prior functional status. DISPOSITION AND FOLLOWUP PLAN: The patient is being discharged to acute rehab at [facility] at [facility]. She has no plans for further chemotherapy per Dr. Lay. Plan to start adjuvant aromatase inhibitor as an outpatient. She will see Dr. Lay in followup following discharge from [facility] for reevaluation and initiation of aromatase inhibitor. As mentioned above, we will repeat CT scan in approximately 4 weeks to ensure resolution of consolidation and noted potential for hilar adenopathy. She does have a chronic pleural effusion, which has been tapped on multiple prior occasions and it has been determined not to be malignant in nature. The patient is being discharged to [facility] in a stable condition. EULOGIO SAN [id number]/[facility] #: [id number] SHRAVAN
== END 2019-01-13 14:40 | DRG 425 ==
LOC: MEDTELE 19:09 → ICU 12-27 09:20 → MEDTELE 01-10 10:00
PROVIDERS: ADMIT Internal Medicine Hematology & Oncology; ATTEND Internal Medicine Hematology & Oncology
PROC: 06HN33Z Insertion of Infusion Device into Left Femoral Vein, Percutaneous Approach (ICD-10-PCS; principal; 2018-12-27)
PROC: B54CZZA Ultrasonography of Left Lower Extremity Veins, Guidance (ICD-10-PCS; 2018-12-27)
PROC: 0BH17EZ Insertion of Endotracheal Airway into Trachea, Via Natural or Artificial Opening (ICD-10-PCS; 2018-12-28)
PROC: 5A1945Z Respiratory Ventilation, 24-96 Consecutive Hours (ICD-10-PCS; 2018-12-28)
PROC: 3E033XZ Introduction of Vasopressor into Peripheral Vein, Percutaneous Approach (ICD-10-PCS; 2018-12-28)
PROC: 04HL33Z Insertion of Infusion Device into Left Femoral Artery, Percutaneous Approach (ICD-10-PCS; 2018-12-29)
DX: E87.1 Hypo-osmolality and hyponatremia (principal); A41.01 Sepsis due to Methicillin susceptible Staphylococcus aureus; A41.81 Sepsis due to Enterococcus; R65.21 Severe sepsis with septic shock; J96.01 Acute respiratory failure with hypoxia; I50.33 Acute on chronic diastolic (congestive) heart failure; J15.211 Pneumonia due to Methicillin susceptible Staphylococcus aureus; J44.0 Chronic obstructive pulmonary disease with (acute) lower respiratory infection; I48.92 Unspecified atrial flutter; N17.9 Acute kidney failure, unspecified; I48.2 Chronic atrial fibrillation; I89.0 Lymphedema, not elsewhere classified; I27.20 Pulmonary hypertension, unspecified; G54.0 Brachial plexus disorders; B37.9 Candidiasis, unspecified; E87.3 Alkalosis; I25.10 Atherosclerotic heart disease of native coronary artery without angina pectoris; C50.912 Malignant neoplasm of unspecified site of left female breast; D69.6 Thrombocytopenia, unspecified; R50.81 Fever presenting with conditions classified elsewhere; D70.9 Neutropenia, unspecified; Z88.0 Allergy status to penicillin; Z88.1 Allergy status to other antibiotic agents; Z88.6 Allergy status to analgesic agent; Z95.0 Presence of cardiac pacemaker; Z79.01 Long term (current) use of anticoagulants; Z90.12 Acquired absence of left breast and nipple; Z85.72 Personal history of non-Hodgkin lymphomas
CPT/HCPCS: 36415; 36600; 70450; 71045; 71250; 74018; 80048; 80053; 80076; 80202; 81003; 81015; 82270; 82533; 82570; 82803; 83605; 83735; 83880; 83930; 83935; 84100; 84300; 84443; 84484; 85025; 85027; 85060; 87040; 87045; 87046; 87070; 87077; 87086; 87186; 87205; 87493; 87641; 87899; 93005; 93306; 94002; 94003; 94640; 99222; 99231; 99232; 99233; 99239; A9270-GY; G8987-GO-CL; G8988-GO-CI; J0330; J0692; J1160; J1170; J1630; J1940; J2060; J2405; J2597; J2704; J2997; J3010; J3370; J3475; J3480; J3490

== ENCOUNTER 2019-01-13 12:04 | Inpatient (IN) | payer OTHER ==
--- OUTSIDE RECORDS SUMMARY | 2019-01-13 14:31 | XMS REPORT | Continuity of Care Document ---
:1955 External Reference #:[id number] Author Name Susana Abebe Care Team Providers Name Role Phone Milena Rose MD Care Team Information Logistics Supervisor Unavailable Nikolai Chirinos MD Primary Care Physician Unavailable Payers Date Identification Numbers Payment Provider Subscriber Effective: Policy Number: [id number] Ring/Ambrose Patel 2009 Medicaid PayID: [id number] [address] [address] [place] [address] Problems Active Problems Provider Date Atrial flutter [...] 05/04/2017 Chronic combined systolic and diastolic heart Milean Rose M.D. 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 Onset: 07/25/2018 Aortic valve disorder Milena Rose M.D. Onset: 07/25/2018 Cardiac pacemaker in situ Milena Rose M.D. Onset: 09/20/2018 Chronic diastolic heart failure Milena Rose M.D. Onset: 11/04/2018 Sinus node dysfunction Milena Rose M.D. Onset: 11/04/2018 Family History Date Family Member(s) Observation Comments General [place] Father Smoker Father due to Cancer () [...] a day 108(90Base) mcg/Act as needed Aerosol Gotham 3-6-9 1 cap po once Unknown 1200mg [...] twice a 30units Kacy Cain, 09/23/2018 - [id number]/GM day to the skin Unknown Cream around [...] qd 90tabs Unknown - 0.125mg Tablets 06/16/2013 Gotham Q Plus Unknown - 05/23/2014 Resveratrol 1 cap po qd pm Unknown - Cap (100mg) 11/03/2018 Alive Womens 50+ 2 tab po qd Unknown - 10/19/2016 Tablets Metoprolol Tartrate 1 po bid 180tabs I34.0 Unknown - 01/17/2018 50mg Tablets Amitriptyline HCL 1/4 tab po qhs 60tabs Unknown - 10mg 12/12/2014 Tablets Nystatin topically bid prn 15g Nikolai Chirinos, - 406675Yaka/GM 05/25/2018 Cream Clindamycin HCL 1 tabs PO [...] Mass Index) 23.3 kg/m2 Last Menstrual Period [id number] 07/25/2018 2:18pm Height 65.5 inches 5'5.50" Weight [...] Date Facility Test Result H/L Range Note CBC Auto Diff 12/21/2018 [facility] White Blood 8.6 10^3/uL N 3.5-10.[address] [place] [address] [phone] Red Blood Count 5.25 10^6/uL High 3.70-4.87 Hemoglobin 15.4 g/dL N 12.0-16.0 Hematocrit 47 % N 35-47 Mean Corpuscular Volume 90 fL N 80-97 Mean Corpuscular Hemoglobin 29 pg N 27-31 Mean Corpuscular HGB Conc 33 g/dL N 31-36 Red Cell Distribution Width 14 % N 10-15 Platelet Count 258 10^3/uL N 150-450 Mean Platelet Volume 8.4 fL N 7.4-10.4 Abs Neutrophils 7.8 10^3/uL High 1.5-7.7 Abs Lymphocytes 0.5 10^3/uL Low 1.0-4.8 Abs Monocytes 0.3 10^3/uL N 0-0.8 Abs Eosinophils 0.0 10^3/uL N 0-0.6 Abs Basophils 0.0 10^3/uL N 0-0.2 Abs Nucleated RBC 0.0 10^3/uL Granulocyte % 90.0 % Lymphocyte % 5.9 % Monocyte % 4.0 % Eosinophil % 0.0 % Basophil % 0.1 % Nucleated Red Blood Cells % 0.1 Comp Metabolic Panel 12/21/2018 [facility] Sodium 133 mmol/L Low 135-145 [address] [place] [address] [phone] Potassium 4.6 mmol/L N 3.5-5.0 Chloride 94 mmol/L Low 101-111 Co2 Carbon Dioxide 29 mmol/L N 22-32 Anion Gap 10 mmol/L N 2-11 Glucose 205 mg/dL High 70-100 Blood Urea Nitrogen 24 mg/dL N 6-24 Creatinine 0.79 mg/dL N 0.51-0.95 BUN/Creatinine Ratio 30.4 High 8-20 Calcium 9.7 mg/dL N 8.6-10.3 Total Protein 8.2 g/dL N 6.4-8.9 Albumin 4.4 g/dL N 3.2-5.2 Globulin 3.8 g/dL N 2-4 Albumin/Globulin Ratio 1.2 N 1-3 Total Bilirubin 0.70 mg/dL N 0.2-1.0 Alkaline Phosphatase 61 U/L N 34-104 Alt 51 U/L N 7-52 Ast 49 U/L High 13-39 Egfr Non- 73.7 >60 Egfr 89.2 >60 1 Basic Metabolic Panel 11/17/2018 [facility] Sodium 137 mmol/L N 135-[address] [place] [address] [phone] Potassium 4.6 mmol/L N 3.5-5.0 Chloride 96 mmol/L Low 101-111 Co2 Carbon Dioxide 33 mmol/L High 22-32 Anion Gap 8 mmol/L N 2-11 Glucose 138 mg/dL High 70-100 Blood Urea Nitrogen 34 mg/dL High 6-24 Creatinine 0.96 mg/dL High 0.51-0.95 BUN/Creatinine Ratio 35.4 High 8-20 Calcium 9.9 mg/dL N 8.6-10.3 Egfr Non- 58.9 >60 Egfr 71.3 >60 2 Laboratory test 11/17/2018 [facility] Magnesium 2.3 mg/dL N 1.9-2.7 [address] [place] [address] [phone] CBC Auto Diff 09/23/2018 [facility] White Blood 6.2 N 3.5- 10.[address] Count 10^3/[place] [address] [phone] Red Blood Count 4.62 10^6/uL N 3.70-4.87 [...] Blood Cells % 0.1 Basic Metabolic 09/23/2018 [facility] Sodium 133 mmol/L Low 135-[address] [place] [address] [phone] Potassium 4.5 mmol/L N 3.5-5.0 Chloride 95 mmol/L Low 101-111 Co2 Carbon Dioxide 32 mmol/L N 22-32 Anion Gap 6 mmol/L N 2-11 Glucose 107 mg/dL High 70-100 Blood Urea Nitrogen 31 mg/dL High 6-24 Creatinine 0.83 mg/dL N 0.51-0.95 BUN/Creatinine Ratio 37.3 High 8-20 Calcium 9.8 mg/dL N 8.6-10.3 Egfr Non- 69.9 >60 Egfr 84.6 >60 4 Type & Screen 09/23/2018 [facility] Patient Blood Type B Positive [address] [place] [address] [phone] Antibody Screen NEGATIVE Comp Metabolic Panel 08/30/2018 [facility] Sodium 132 mmol/L Low 135-[address] [place] [address] [phone] Potassium 4.4 mmol/L N 3.5-5.0 Chloride 95 [...] Egfr Non- 75.1 >60 Egfr 90.9 >60 5 CBC Auto Diff 08/30/2018 [facility] White Blood 7.8 10^3/uL N 3.5-10.[address] [place] [address] [phone] Red Blood Count 4.63 10^6/uL N 4.00-5.40 [...] Blood Cells % 0 Laboratory test 08/25/2018 [facility] Surgical SEE RESULT [address] [place] [address] [phone] Laboratory test 08/25/2018 [facility] Cytology SEE RESULT [address] [place] [address] [phone] Comp Metabolic 07/27/2018 [facility] Sodium 135 mmol/L N 135- [address] [place] [address] [phone] Potassium 4.1 mmol/L N 3.5-5.0 Chloride 94 [...] Egfr Non- 75.1 >60 Egfr 90.9 >60 8 Basic Metabolic 05/26/2018 [facility] Sodium 133 mmol/L Low 135-[address] [place] [address] [phone] Potassium 4.2 mmol/L N 3.5-5.0 Chloride 89 mmol/L Low 101-111 Co2 Carbon Dioxide 36 mmol/L High 22-32 Anion Gap 8 mmol/L N 2-11 Glucose 147 mg/dL High 70-100 Blood Urea Nitrogen 21 mg/dL N 6-24 Creatinine 0.70 mg/dL N 0.51-0.95 BUN/Creatinine Ratio 30.0 High 8-20 Calcium 9.3 mg/dL N 8.6-10.3 Egfr Non- 85.1 >60 Egfr 102.9 >60 9 Laboratory test 05/26/2018 [facility] Magnesium 2.1 mg/dL N 1.9-2.[address] [place], [place] [phone] Laboratory 05/18/2018 N2N/CCD Import Absolute 0.1 10^3/ul [...] Import Urine Specific 1.005 Low 1.010- Studies [place] 1.030 Urine pH 6.0 5-9 Laboratory 05/09/2018 [...] Level 4.9 mmol/L 3.5-5.0 Basic Metabolic 04/06/2013 [facility] Sodium 137 mmol/L 133- 145 Panel [address] [place] [address] [phone] Potassium 4.6 mmol/L 3.5-5.0 Chloride 98 mmol/L Low 101-111 Co2 Carbon Dioxide 29.0 mmol/L 22-32 Anion Gap 10.0 mmol/L 2-11 Glucose 111 mg/dL High 70-100 Blood Urea Nitrogen 11 mg/dL 6-24 Creatinine 0.80 mg/dL 0.50-1.40 BUN/Creatinine Ratio 13.8 8-20 Calcium 8.9 mg/dL 8.1-9.9 Egfr Non- 74.2 >60 Egfr 95.4 >60 10 Laboratory test 04/06/2013 [facility] Digoxin 0.7 ng/mL 0.5- 1.5 11 finding [address] [place], [place] [address] [phone] Acid Fast 01/21/2012 [facility] [address] [place] [address] ------ [place] [address] <SEE NOTE> [phone] Acid Fast 01/21/2012 [facility] [address] [place] [address] ------ [place] [address] <SEE NOTE> [phone] Acid Fast 01/21/2012 [facility] [address] [place] [address] ------ [place] [address] <SEE NOTE> [phone] MRSA/Vre Screen 12/09/2010 [facility] MRSA/Vre NFICU [address] [place] [address] [phone] MRSA/Vre Screen 11/08/2010 [facility] MRSA/Vre [facility] [address] [place] [address] [phone] Cytology Non-Manager Project Management 11/07/2010 [facility] Cytology Non [address] Manager Project Management ------ [place] [address] <SEE NOTE> [phone] Cytology Non-Manager Project Management 12/27/2009 [facility] Cytology Non [address] Manager Project Management ------ [place] [address] <SEE NOTE> [phone] Pleural Fluid 12/27/2009 [facility] Pleural Fluid CLOUDY,RED Cell Count [address] [place] [address] [phone] Pleural Fluid Volume 3.0 Pleural Fluid WBC 2300 Pleural Fluid [place] [address] Pleural Fluid Polys 7 Pleural Fluid Lymph 86 Pleural Fluid [place] 1 Pleural Fluid Non Hemo 6 Pleural Fluid Comments (SEE NOTE) 19 Body Fluid 12/27/2009 [facility] Body Fluid NG4 [address] [place] [address] [phone] Body Fluid C&S 12/27/2009 [facility] Body Fluid NO ORGANISMS SEE [address] Smear <SEE NOTE> [place] [address] [phone] 1 Because ethnic data is not always [...] 5 Kidney failure <15 (or dialysis) 2 Because ethnic data is not always readily [...] 15-29 5 Kidney failure <15 (or dialysis) 3 November Copy Result to: NIKOLAI CHIRINOS ([id number]) 4 Because ethnic data is not always [...] 5 Kidney failure <15 (or dialysis) 5 Because ethnic data is not always readily [...] 15-29 5 Kidney failure <15 (or dialysis) 6 SEE RESULT BELOW Name: AMANDAKALLIE M : [address]: Raffy Hernandez MD Acct: [id number] Unit: [id number] AGE: 62 Location: [facility] Re08/25/18 SEX: F Status: REG REF SPEC: [id number] ZAYNAB: 08/25/[address]: Raffy Hernandez MD REQ: [id number] RECD: 08/25/18 STATUS: SOUT _ ORDERED: LEVEL 4 COMMENTS: [id number] FINAL DIAGNOSIS Uterus, endometrium, curettage: -- Benign [...] 1122 END OF REPORT DEPARTMENT OF PATHOLOGY, [address] [place] [address] Jaspreet Valverde M.D. Director [facility] # [id number] 7 SEE RESULT BELOW Name: KALLIE PATEL : [address]: Raffy Hernandez MD Acct: [id number] Unit: [id number] AGE: 62 Location: [facility] Re08/25/18 SEX: F Status: REG REF SPEC: [id number] ZAYNAB: 08/25/[address]: Raffy Hernandez MD REQ: [id number] RECD: 08/25/18 STATUS: SOUT _ ORDERED: TP IMAGE ANALYS, HPV/Thin Prep COMMENTS: [id number] Negative for Intraepithelial lesion or Malignancy Date Time Test Result Flag (u) Normal Range 08/25/18 5841 @ HPV RNA Negative Negative @ @ [...] by and Reported on: THONY Jones (ASCP) 1251 This Pap test was evaluated with the assistance of the ThinPrep Test Imaging System. Due to cytologic findings at the supervisor film processing microscope, comprehensive manual rescreening by a Music Theory Teacher may be required. The Pap Smear is [...] years. END OF REPORT DEPARTMENT OF PATHOLOGY, [address] [place] [address] Jaspreet Valverde M.D. Director [facility] # [id number] 8 Because ethnic data is not always [...] 5 Kidney failure <15 (or dialysis) 10 Because ethnic data is not always readily [...] 15-29 5 Kidney failure <15 (or dialysis) 11 Levels at the lower end of the range may be needed for symptomatic heart failure and levels at the higher end of the range for rate control. 12 RUN DATE: 02/23/12 [facility] NMI LIVE PAGE 1 RUN TIME: 936 Specimen Inquiry RUN USER: INTERFACE Name: KALLIE PATEL Status: DIS IN Re01/18/12 Age/Sex: 56/F Unit#: [id number] [facility] [birth year] SPEC #: [id number] ZAYNAB: 01/21/12 STATUS: RES REQ #: [id number] RECD: 01/21/12 [facility] DR: Ferrer MD,Lucy Davis SOURCE: BODY FLUID ENTR: 01/21/[address]: Lang TORRE, Whitney Wooten SPDESC: PLEURAL FL Sera TORRE,Daisha ORDERED: ACID FAST CULT Procedure Result Verified Site > ACID FAST CULTURE Preliminary 02/23/12- 936 ML Culture, Mycobacterium No growth after 30 days Test performed by: [employer] [facility] [place], [place] [address] [facility] Permit #[id number] [address] [place] [address] DEPARTMENT OF PATHOLOGY, [address] [place] [address] [facility] Permit #[id number] Bucky Aguilar M.D. [employer] 13 RUN DATE: 03/09/12 [facility] NMI LIVE PAGE 1 RUN TIME: 7266 Specimen Inquiry RUN USER: INTERFACE Name: KALLIE PATEL Status: DIS IN Re01/18/12 Age/Sex: 56/F Unit#: [id number] Location: [facility] : 57 SPEC #: [id number] ZAYNAB: 01/21/12 STATUS: RES REQ #: [id number] RECD: 01/21/[address] [facility] DR: Ferrer MD,Lucy Davis SOURCE: BODY FLUID ENTR: 01/21/[address] [facility] [address]: Lang TORRE, Whitney Wooten SPDESC: PLEURAL FL Sera TORRE,Daisha ORDERED: ACID FAST CULT Procedure Result Verified Site > ACID FAST CULTURE Preliminary 03/09/12- 931 ML Culture, Mycobacterium No growth after 45 days Test performed by: [facility] [address] [place], [place] [address] - [facility] Permit #[id number] [address] [place] [address] DEPARTMENT OF PATHOLOGY, [address] [place] [address] [facility] Permit #[id number] Bucky Aguilar M.D. [employer] 14 RUN DATE: 03/24/12 [facility] NMI LIVE PAGE 1 RUN TIME: 1211 Specimen Inquiry RUN USER: INTERFACE Name: KALLIE PATEL Status: DIS IN Re01/18/12 Age/Sex: 56/F Unit#: [id number] Location: [facility] : 57 SPEC #: [id number] ZAYNAB: 01/21/12 STATUS: COMP REQ #: [id number] RECD: 01/21/12 [facility] DR: Ferrer MD,Lucy Davis SOURCE: BODY FLUID ENTR: 01/21/[address]: Lang TORRE, Whitney Wooten SPDES: PLEURAL FL Sera TORRE,Daisha ORDERED: ACID FAST CULT Procedure Result Verified Site > ACID FAST CULTURE Final 03/24/12- 1211 ML Culture, Mycobacterium No growth after 60 days of incubation. Test performed by: [facility] [address] [place], [place] [address] - [facility] Permit #[id number] [address] [place] [address] DEPARTMENT OF PATHOLOGY, [address] [place] [address] [facility] Permit #[id number] Bucky Aguilar M.D. Supplies Packer 15 NO MRSA ISOLATED 16 NO MRSA ISOLATED 17 ---- RUN DATE: 11/12/10 [facility] NMI LIVE PAGE 1 RUN TIME: 1151 Specimen Inquiry RUN USER: INTERFACE -- Name: KALLIE PATEL Willem Status: DIS IN Re11/08/10 Age/Sex: 55/F Unit#: [id number] Location: ICU : 57 -- Specimen: [id number] SOUT Spec Date: 11/07/[address]: Michel becerril MD Spec Type: CYTOLOGY [...] similar findings. Initial evaluation performed by Kd CHAU([facility]) 11/10/10 Final Interpretation electronically signed by: ANKITA DIAS 11/12/10 1151 -- DEPARTMENT OF PATHOLOGY, [address] [place] [address] [facility] Permit #[id number] Jaspreet Valverde M.D. Director Ankita Dias M.D. Dye Blender Dir ryan -- 18 ---- RUN DATE: 12/30/09 [facility] NMI LIVE PAGE 1 RUN TIME: 1338 Specimen Inquiry RUN USER: INTERFACE -- Name: KALLIE PATEL Status: DIS IN Re12/26/09 Age/Sex: 54/F Unit#: [id number] Location: [address] [place] [address]. : 57 -- Specimen: [id number] SOUT Spec Date: 12/27/[address]: Nikolai Hopkins MD Spec Type: CYTOLOGY Received: 12/27/09-2568 Copies to: Daisha claire MD SOURCE BODY FLUID (SITE): Pleural PATIENT INFORMATION ACTUAL COLLECTION DATE: 12/27/09 PATIENT HISTORY: hodgkins lymphoma GROSS DESCRIPTION 30 mls of bloody,cloudy pleural fluid Specimen sent for Flow Cytometry on 12/27/09 to [facility] in [place], [place]. DIAGNOSIS Mesothelial cells, mature lymphocytes, macrophages, and blood. No evidence of non- Hodgkin or Hodgkin lymphoma. COMMENT Flow has been performed at [facility] in [place], [place]. The testing reveals: Patient Name: KALLIE PATEL Collection Date: 12/27/2009 Ordering Physician: Jaspreet Valverde M.D. Received Date: 12/28/2009 Treating Physician: Yunier Manzano Report Date: 12/30/2009 Ordering Facility: [facility] Ref #: [id number] Medical Record #: Not Given Specimen ID #: [id number] Date of ,Sex: 1955, N Flow Cytometry Immunophenotypic Report INTERPRETATION: PLEURAL FLUID, RIGHT LUNG: NO LYMPHOID MONOCLONALITY OR ABERRANT IMMUNOPHENOTYPIC EXPRESSION DETECTED. -- DEPARTMENT OF PATHOLOGY, [address] [place] [address] [facility] Permit #[id number] Bucky Aguilar M.D. Dye Blender Dir [email or web address] -- -- RUN DATE: 12/30/09 [facility] NMI LIVE PAGE 2 RUN TIME: 1338 Specimen Inquiry RUN USER: INTERFACE -- Name: KALLIE PATEL Status: DIS IN Re12/26/09 Age/Sex: 54/F Unit#: [id number] Location: : 57 -- -- CONTINUED -- COMMENT (Continued) Comments: Clinical and morphologic correlation is recommended. Submitted Dx: Evaluation for non-Hodgkin lymphoma Viability: 98% Flow Differential Population Analysis Lymphocytes: 97% B-cells: 18%, polyclonal/polytypic sIg light chain pattern T-cells: no aberrant expression of the markers tested CD4:CD8=6.5 NK-cells: 3% (not increased) IJ87-ymphimxs 3% events/ debris: No significant reactivity with the markers tested (contains rare non-hematolymphoid cells) Antibodies Performed: CD2, CD3, CD4, CD5, CD7, CD8, CD19, [place], Lambda, CD20, CD23, [facility]-7, CD11b, CD10, CD45, HLA-DR, CD38, CD56, CD30 (Original [facility] report available upon request by calling Pathology at [phone]). Initial evaluation performed by Rosetta STEWART([facility]) 12/30/09 Final Interpretation electronically signed by: ANKITA DIAS 12/30/09 1338 -- -- DEPARTMENT OF PATHOLOGY, [address] [place] [address] [facility] Permit #[id number] Jaspreet Valverde M.D. Director Ankita Dias M.D. Dye Blender Dir ryan -- 19 REVIEWED BY ANKITA DIAS MD NEGATIVE FOR MALIGNANT CELLS 20 FINAL: NO GROWTH DAY 4 21 NO ORGANISMS SEEN BY CYTOSPIN SMEAR FEW Procedures Date Code Description Status 12/30/2018 06522 ECHO Transthorasic Realtime 2D W Doppler & Color Flow Completed Hosp 12/12/2018 31506 Pace Maker Eval W/Iterative Adjment Dual Lead Completed 12/12/2018 51369 Pace Maker Eval W/Iterative Adjment Dual Lead Completed 10/27/2018 60058 Icd Eval Sing,Dual,Multi Lead Remote Recpt Transm Tech Completed Rev Tech S 10/27/2018 83300 Icd Eval Sing,Dual,Multi Lead Remote Recpt Transm Tech Completed Rev Tech S 10/27/2018 83544 Pacemaker Check Remote Up To 90Days Completed Single,Dual,Multiple Lead 10/27/2018 79771 Pacemaker Check Remote Up To 90Days Completed Single,Dual,Multiple Lead 10/07/2018 18728 Hysteroscopy, Surgical W/Biopsy Endometrium/Polpectomy Completed W/W/O D&C 10/07/2018 90648 Mastectomy Mod Radical Not Including Pectoralis Major Completed Muscle 10/07/2018 90303 Mastectomy Mod Radical Not Including Pectoralis Major Completed Muscle 09/20/2018 82843 EKG Tracing & Interpretation Completed 08/25/2018 16861 Endometrial Sampling W Or W/O Endocervical BX W Or W/O Completed Cerv Dilat 07/27/2018 68166992 Mammogram Completed 07/25/2018 70209 Pace Maker Eval W/Iterative Adjment Dual Lead Completed 07/25/2018 75734 Pace Maker Eval W/Iterative Adjment Dual Lead Completed 06/16/2018 13570 Pace Maker Eval W/Iterative Adjment Dual Lead Completed 06/16/2018 75454 Pace Maker Eval W/Iterative Adjment Dual Lead Completed 05/26/2018 02533 EKG Tracing & Interpretation Completed 05/19/2018 57317 Pace Maker Eval W/Iterative Adjment Dual Lead Completed 05/19/2018 10510 EKG, Interpretation Only Completed 05/18/2018 61885 EKG, Interpretation Only Completed 05/18/2018 [address] Sequential Atrial And Ventricular Completed 05/15/2018 12288 EKG, Interpretation Only Completed 05/14/2018 50803 EKG, Interpretation Only Completed 05/13/2018 65146 EKG, Interpretation Only Completed 05/06/2018 98986 EKG, Interpretation Only Completed 05/05/2018 22917 EKG, Interpretation Only Completed 05/04/2018 65369 EKG, Interpretation Only Completed 05/03/2018 10028 EKG, Interpretation Only Completed 04/06/2018 12718 Echocardiogram, Limited Study Completed 04/04/2018 42481 ECHO Transthorasic Realtime 2D W Doppler & Color Flow Completed Hosp 04/01/2018 24951 EKG Tracing & Interpretation Completed 01/17/2018 17008 EKG Tracing & Interpretation Completed 11/26/2017 18731 ECHO Transthorasic Realtime 2D W Doppler & Color Flow Completed Hosp 05/04/2017 93666 EKG Tracing & Interpretation Completed 10/20/2016 56932 EKG Tracing & Interpretation Completed 05/05/2016 51991 EKG Tracing & Interpretation Completed 08/26/2015 94311 EKG Tracing & Interpretation Completed 12/31/2014 27152 EKG Tracing & Interpretation Completed 07/11/2014 27518 Echocardiogram, Limited Study Completed 05/28/2014 61231 EKG Tracing & Interpretation Completed 05/15/2014 03199 ECHO Transthoracic, Real-Time 2D With Doppler And Color Completed Flow 10/23/2013 46290 EKG Tracing & Interpretation Completed 06/19/2013 98977 EKG Tracing & Interpretation Completed 06/05/2013 78868 Rhythm ECG With Interp Completed 06/05/2013 55628 EKG, Interpretation Only Completed 06/04/2013 87270 EKG, Interpretation Only Completed 06/03/2013 01023 EKG, Interpretation Only Completed 06/02/2013 06591 EKG, Interpretation Only Completed 06/01/2013 67503 EKG, Interpretation Only Completed 05/16/2013 28018 EKG Tracing & Interpretation Completed 04/21/2013 04744 ECHO Transthoracic, Real-Time 2D With Doppler And Color Completed Flow 04/06/2013 87353 EKG, Interpretation Only Completed 04/03/2013 05999 EKG Tracing & Interpretation Completed 03/21/2013 51901 EKG, Interpretation Only Completed 03/19/2013 46097 EKG, Interpretation Only Completed 04/26/2012 65797 EKG Tracing & Interpretation Completed 01/28/2012 39785 EKG, Interpretation Only Completed 12/26/2009 81737 EKG, Interpretation Only Completed Encounters Type Date Location Provider Dx Diagnosis Office Visit 11/04/2018 [facility] Milena Rose, I25.10 Athscl heart 11:20a Of [facility] AT [facility] [place] Bucky disease of [place] coronary artery w/o ang pctrs I48.0 Paroxysmal atrial fibrillation I49.5 Sick sinus syndrome Z95.0 Presence of cardiac pacemaker I35.0 Nonrheumatic aortic (valve) stenosis I34.0 Nonrheumatic mitral (valve) insufficiency I50.32 Chronic diastolic (congestive) heart failure Office Visit 10/21/2018 [facility] Dvorah N84.0 Polyp of corpus 11:00a [facility] MD David uteri Office Visit 09/20/2018 [place] Milena Rose, Z01.810 Encounter for 12:00p Cardiology Yimi Lawler preprocedural [facility] cardiovascular examination C50.912 Malignant neoplasm of unspecified site of left female breast I50.32 Chronic diastolic (congestive) heart failure Z95.0 Presence of cardiac pacemaker I48.0 Paroxysmal atrial fibrillation I35.0 Nonrheumatic aortic (valve) stenosis I34.0 Nonrheumatic mitral (valve) insufficiency I44.7 Left bundle-branch block, unspecified Office Visit 09/01/2018 [facility] Kacy Fransisco N63.20 Unspecified lump in 1:00p [facility] Ant the left breast, [facility] unspecified quadrant Office Visit 08/25/2018 [facility] ora N95.0 Postmenopausal 1:30p [facility] MD David bleeding R93.89 Abnormal findings on dx imaging of ot body structures N88.8 Other specified noninflammatory disorders of cervix uteri Z79.01 [facility]FP (current) use of anticoagulants Z12.4 Encounter for screening for malignant neoplasm of cervix Office Visit 07/25/2018 2:40p [facility] Milena Rose, I50.42 Chronic combined Of [facility] Bucky 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 I34.0 Nonrheumatic mitral (valve) insufficiency I48.0 Paroxysmal atrial fibrillation I35.0 Nonrheumatic aortic (valve) stenosis Office Visit 07/15/2018 12:00p Pulmonology And Hortencia J44.9 Chronic [facility] MD Marcial obstructive [facility] pulmonary disease, unspecified J90 Pleural effusion, not elsewhere classified Office Visit 05/27/2018 8:00a [facility] Bryanna J44.9 Chronic MD Celio obstructive pulmonary disease, unspecified I50.42 Chronic combined systolic and diastolic hrt fail E87.6 Hypokalemia N63.20 Unspecified lump in the left breast, unspecified quadrant Z95.0 Presence of cardiac pacemaker Z85.72 Personal history of non-Hodgkin lymphomas Office Visit 05/26/2018 1:30p [facility] Jennifer Phelps, I49.5 Sick sinus Of [facility] [employer] syndrome Z79.899 Other longterm (current) drug therapy I48.0 Paroxysmal atrial fibrillation I25.10 Athscl heart disease of [place] coronary artery w/o ang pctrs C85.90 Non-Hodgkin lymphoma, unspecified, unspecified site Office Visit 05/20/2018 [facility] J44.1 Chronic 11:28a Assoc,[facility] Ramona, obstructive Hospitalists [employer] pulmonary disease w (acute) exacerbation I50.43 Acute on chronic combined systolic and diastolic hrt fail I11.0 Hypertensive heart disease with heart failure I49.5 Sick sinus syndrome J90 Pleural effusion, not elsewhere classified Z95.0 Presence of cardiac pacemaker Office Visit 05/19/2018 3:43p [facility] Milena Rose, I48.0 Paroxysmal atrial Of [employer] M.D. fibrillation I50.9 Heart failure, unspecified J90 Pleural effusion, not elsewhere classified I25.10 Athscl heart disease of [place] coronary artery w/o ang pctrs I49.5 Sick sinus syndrome Z95.0 Presence of cardiac pacemaker Office Visit 05/19/2018 [facility] I11.0 Hypertensive heart 11:28a Assoc,[facility] Ramona, disease with heart Hospitalists [employer] failure I50.33 Acute on chronic diastolic (congestive) heart failure J44.0 Chronic obstructive pulmon disease w acute lower resp infct Z87.891 Personal history of nicotine dependence Z95.0 Presence of cardiac pacemaker Office Visit 05/18/2018 [facility] I11.0 Hypertensive heart 11:28a Assoc,[facility] Ramona, disease with heart Hospitalists [employer] failure I50.33 Acute on chronic diastolic (congestive) heart failure J44.0 Chronic obstructive pulmon disease w acute lower resp infct J18.9 Pneumonia, unspecified organism Z95.0 Presence of cardiac pacemaker [facility].5 Sick sinus Assoc,pc [employer] syndrome Hospitalists I11.0 Hypertensive heart disease with heart failure I50.33 Acute on chronic diastolic (congestive) heart failure J44.0 Chronic obstructive pulmon disease w acute lower resp infct J18.9 Pneumonia, unspecified organism Office Visit 05/17/2018 2:15p [facility] Gary Dowling I49.5 Sick sinus Bucky Mcmullen syndrome Office [facility] I49.5 Sick sinus Assoc,pc [employer] syndrome Hospitalists J44.0 Chronic obstructive pulmon disease w acute lower resp infct J18.9 Pneumonia, unspecified organism I11.0 Hypertensive heart disease with heart failure I50.33 Acute on chronic diastolic (congestive) heart failure Office Visit 05/15/2018 11:27a [facility] Luis I49.5 Sick sinus Assoc,pc EULOGIO Flores syndrome Hospitalists I11.0 Hypertensive heart disease with heart failure I50.33 Acute on chronic diastolic (congestive) heart failure J44.0 Chronic obstructive pulmon disease w acute lower resp infct J18.9 Pneumonia, unspecified organism Office Visit 05/15/2018 12:06p [facility] Pablito Damon49.5 Sick sinus Bucky Felix syndrome I50.9 Heart failure, unspecified R94.31 Abnormal electrocardiogram [ECG] [EKG] Office Visit 05/14/2018 12:22p [facility] Pablito Damon49.5 Sick sinus Bucky Felix syndrome I48.0 Paroxysmal atrial fibrillation R94.31 Abnormal electrocardiogram [ECG] [EKG] I50.9 Heart failure, unspecified Office Visit 05/14/2018 11:26a [facility] Luis I49.5 Sick sinus Assoc,EULOGIO Melissa syndrome Hospitalists J44.0 Chronic obstructive pulmon disease w acute lower resp infct J18.9 Pneumonia, unspecified organism I11.0 Hypertensive heart disease with heart failure I50.33 Acute on chronic diastolic (congestive) heart failure Office Visit 05/13/2018 3:55p [facility] Pablito Damon49.5 Sick sinus Bucky Felix syndrome I25.10 Athscl heart disease of [place] coronary artery w/o ang pctrs I50.9 Heart failure, unspecified R94.31 Abnormal electrocardiogram [ECG] [EKG] J44.1 Chronic obstructive pulmonary disease w (acute) exacerbation Office Visit 05/13/2018 11:26a [facility] Luis I49.5 Sick sinus Assoc,pc EULOGIO Flores syndrome Hospitalists J44.0 Chronic obstructive pulmon disease w acute lower resp infct J18.9 Pneumonia, unspecified organism J44.1 Chronic obstructive pulmonary disease w (acute) exacerbation I11.0 Hypertensive heart disease with heart failure I50.33 Acute on chronic diastolic (congestive) heart failure R94.31 Abnormal electrocardiogram [ECG] [EKG] Office Visit 05/12/2018 11:26a [facility] Luis J44.0 Chronic Assoc,EULOGIO Melissa obstructive Hospitalists pulmon disease w acute lower resp infct J18.9 Pneumonia, unspecified organism J44.1 Chronic obstructive pulmonary disease w (acute) exacerbation I11.0 Hypertensive heart disease with heart failure I50.33 Acute on chronic diastolic (congestive) heart failure F41.9 Anxiety disorder, unspecified R41.0 Disorientation, unspecified Office Visit 05/11/2018 11:50a [facility] J44.0 Chronic [facility] Marcial obstructive [facility] pulmon disease w acute lower resp infct J18.9 Pneumonia, unspecified organism J44.1 Chronic obstructive pulmonary disease w (acute) exacerbation J90 Pleural effusion, not elsewhere classified R53.83 Other fatigue Office Visit 05/11/2018 11:26a [facility] Luis J44.0 Chronic Assoc,EULOGIO Melissa obstructive Hospitalists pulmon disease w acute lower resp infct J18.9 Pneumonia, unspecified organism J44.1 Chronic obstructive pulmonary disease w (acute) exacerbation I11.0 Hypertensive heart disease with heart failure I50.33 Acute on chronic diastolic (congestive) heart failure F41.9 Anxiety disorder, unspecified Office Visit 05/10/2018 [facility] Bibi J44.0 Chronic 11:25a Assoc,sheridan Robles NP [...] Chronic [facility] [place] obstructive [facility] pulmon disease w acute lower resp infct J18.9 Pneumonia, unspecified organism J44.1 Chronic obstructive pulmonary disease w (acute) exacerbation Z87.891 Personal history of nicotine dependence J90 Pleural effusion, not elsewhere classified Office Visit 05/09/2018 [facility] Mason Kirkland J44.0 Chronic 11:25a sheridan Vasquez MD obstructive Hospitalists pulmon disease w acute lower resp infct J18.9 Pneumonia, unspecified organism Office Visit 05/08/2018 11:24a [facility] Denise Asher, R06.02 Shortness of Assoc,sheridan N.P. breath Hospitalists R53.83 Other fatigue D72.829 Elevated white blood cell count, unspecified Office Visit 05/05/2018 [facility] Mason Kirkland I50.31 Acute diastolic 11:55a sheridan Vasquez MD (congestive) Hospitalists heart failure I45.81 Long QT syndrome I48.0 Paroxysmal atrial fibrillation I44.7 Left bundle-branch block, unspecified Office Visit 05/04/2018 [facility] Lucy I50.31 Acute diastolic 11:55a sheridan Vasquez M.D. (congestive) heart Hospitalists failure I48.0 Paroxysmal atrial fibrillation I45.81 Long QT syndrome I44.7 Left bundle-branch block, unspecified Office Visit 05/03/2018 [facility] Lucy I50.31 Acute diastolic 11:54a sheridan Vasquez M.D. (congestive) heart Hospitalists failure I48.0 Paroxysmal atrial fibrillation I45.81 Long QT syndrome I44.7 Left bundle-branch block, unspecified Office Visit 05/03/2018 8:54a [facility] [place] I50.9 Heart failure, Of Rhys Fuentes M.D. unspecified I48.0 Paroxysmal atrial fibrillation I45.81 Long QT syndrome Office Visit 05/02/2018 [facility] Lucy I50.31 Acute diastolic 11:54a sheridan Vasquez M.D. (congestive) heart Hospitalists failure I48.0 Paroxysmal atrial fibrillation I45.81 Long QT syndrome I44.7 Left bundle-branch block, unspecified Office Visit 04/10/2018 [facility] Lucy I50.33 Acute on chronic 9:18a sheridan Vasquez M.D. diastolic Hospitalists (congestive) heart failure R60.0 Localized edema N63.20 Unspecified lump in the left breast, unspecified quadrant I44.7 Left bundle-branch block, unspecified Office Visit 04/09/2018 [facility] Lucy I50.33 Acute on chronic 9:18a sheridan Vasquez M.D. diastolic Hospitalists (congestive) heart failure R60.0 Localized edema J44.9 Chronic obstructive pulmonary disease, unspecified N63.20 Unspecified lump in the left breast, unspecified quadrant I48.0 Paroxysmal atrial fibrillation I44.7 Left bundle-branch block, unspecified Office Visit 04/08/2018 [facility] I50.33 Acute on chronic 9:17a sheridan Vasquez M.D. diastolic Hospitalists (congestive) heart failure J44.9 Chronic obstructive pulmonary disease, unspecified N63.20 Unspecified lump in the left breast, unspecified quadrant I48.0 Paroxysmal atrial fibrillation I44.7 Left bundle-branch block, unspecified Office Visit 04/07/2018 [facility] I50.33 Acute on chronic 9:17a sheridan Vasquez M.D. diastolic Hospitalists (congestive) heart failure J44.1 Chronic obstructive pulmonary disease w (acute) exacerbation N63.20 Unspecified lump in the left breast, unspecified quadrant I48.0 Paroxysmal atrial fibrillation I44.7 Left bundle-branch block, unspecified Office Visit 04/06/2018 3:37p [facility] Milena Rose, I50.9 Heart failure, Of [employer] M.D. unspecified I27.20 Pulmonary hypertension, unspecified J90 Pleural effusion, not elsewhere classified I48.0 Paroxysmal atrial fibrillation I25.10 Athscl heart disease of [place] coronary artery w/o ang pctrs Z79.01 [facility] (current) use of anticoagulants Office Visit 04/06/2018 [facility] I50.33 Acute on chronic 9:17a sheridan Vasquez M.D. diastolic Hospitalists (congestive) heart failure R60.0 Localized edema I48.0 Paroxysmal atrial fibrillation I44.7 Left bundle-branch block, unspecified J90 Pleural effusion, not elsewhere classified Office Visit 04/05/2018 [facility] I50.33 Acute on chronic 9:16a sheridan Vasquez M.D. diastolic Hospitalists (congestive) heart failure R60.0 Localized edema I48.0 Paroxysmal atrial fibrillation I44.7 Left bundle-branch block, unspecified J90 Pleural effusion, not elsewhere classified Z85.71 Personal history of Hodgkin lymphoma Office Visit 04/04/2018 [facility] Daisha Zamora, I50.9 Heart failure , 9:16a Assocsheridan M.D. unspecified Hospitalists R60.0 Localized edema I48.0 Paroxysmal atrial fibrillation I44.7 Left bundle-branch block, unspecified J90 Pleural effusion, not elsewhere classified Office Visit 04/03/2018 [facility] Daisha Zamora, I50.9 Heart failure , 9:16a Assoc,sheridan HillsD. unspecified Hospitalists R60.0 Localized edema I89.0 Lymphedema, not elsewhere classified I48.0 Paroxysmal atrial fibrillation I44.7 Left bundle-branch block, unspecified J90 Pleural effusion, not elsewhere classified [facility]9 Heart failure , 9:16a Asssheridan esparza M.D. unspecified Hospitalists R60.0 Localized edema I89.0 Lymphedema, not elsewhere classified I48.0 Paroxysmal atrial fibrillation I44.7 Left bundle-branch block, unspecified J90 Pleural effusion, not elsewhere classified [facility], Assoc,pc Srinivasan D.Joel unspecified Hospitalists I48.0 Paroxysmal atrial fibrillation I44.7 Left bundle-branch block, unspecified R60.0 Localized edema I89.0 Lymphedema, not elsewhere classified J90 Pleural effusion, not elsewhere classified Z87.891 Personal history of nicotine dependence Office Visit 04/01/2018 3:30p [facility] Jennifer Phelps, R60.9 Edema, unspecified [employer] J44.1 Chronic obstructive pulmonary disease w (acute) exacerbation I25.10 Athscl heart disease of [place] coronary artery w/o ang pctrs I48.0 Paroxysmal atrial fibrillation Office Visit 01/17/2018 3:20p [facility] Milena Rose, I48.0 Paroxysmal atrial Of [employer] M.D. fibrillation I44.7 Left bundle-branch block, unspecified I34.0 Nonrheumatic mitral (valve) insufficiency I25.10 Athscl heart disease of [place] coronary artery w/o ang pctrs J44.1 Chronic obstructive pulmonary disease w (acute) exacerbation Office Visit 11/29/2017 [facility] R06.02 Shortness of 10:40a Assoc,pc Ran PA breath Hospitalists J44.1 Chronic obstructive pulmonary disease w (acute) exacerbation I48.91 Unspecified atrial fibrillation E03.9 Hypothyroidism, unspecified Office Visit 11/28/2017 [facility] R06.02 Shortness of 10:40a Assoc,pc Ran, PA breath Hospitalists J44.1 Chronic obstructive pulmonary disease w (acute) exacerbation I48.91 Unspecified atrial fibrillation E03.9 Hypothyroidism, unspecified Office Visit 11/27/2017 10:39a [facility] Debra R06.02 Shortness of Assoc,pc Gunnar Goff, breath Hospitalists [employer] J44.1 Chronic obstructive pulmonary disease w (acute) exacerbation I48.91 Unspecified atrial fibrillation E03.9 Hypothyroidism, unspecified Office Visit 11/26/2017 [facility] Garrison Argueta R06.02 Shortness of 10:37a Assoc,pc Bucky CHAN breath Hospitalists J44.1 Chronic obstructive pulmonary disease w (acute) exacerbation I48.91 Unspecified atrial fibrillation E03.9 Hypothyroidism, unspecified Office Visit 05/04/2017 4:00p [facility] Milena Rose, I48.0 Paroxysmal atrial Of [employer] M.D. fibrillation I44.7 Left bundle-branch block, unspecified I25.10 Athscl heart disease of [place] coronary artery w/o ang pctrs E78.00 Pure hypercholesterolemia, unspecified R73.9 Hyperglycemia, unspecified Office Visit 10/20/2016 3:30p [facility] Jovanna Ga, I48.0 Paroxysmal atrial PA fibrillation I44.7 Left bundle-branch block, unspecified I34.0 Nonrheumatic mitral (valve) insufficiency Office Visit 05/05/2016 4:00p [facility] Milena Rose, I48.0 Paroxysmal atrial Of [employer] M.D. fibrillation I44.7 Left bundle-branch block, unspecified I34.0 Nonrheumatic mitral (valve) insufficiency Office Visit 08/26/2015 3:45p [facility] Milena Rose, I48.0 Paroxysmal atrial Of [employer] M.D. fibrillation I34.0 Nonrheumatic mitral (valve) insufficiency I44.7 Left bundle-branch block, unspecified Office Visit 12/31/2014 3:30p [facility] Jovanna Ga 427.31 Atrial Of [employer] PA Fibrillation 424.0 Mitral Valve Disorder 244.9 Hypothyroidism Other Unspec 397.0 Tricuspid Valve Disease 424.1 Aortic Valve Disorder Office Visit 05/28/2014 3:00p [facility] Jovanna Ga, PA 424.0 Mitral Valve Of [employer] Disorder 427.31 Atrial Fibrillation 401.9 Hypertension Unspec 424.1 Aortic Valve Disorder Office Visit 10/23/2013 3:15p [facility] Milena Rose 427.31 Atrial Cardiology Of M.D. Fibrillation [employer] 427.32 Atrial Flutter 794.31 Electrocardiogram (ECG) (EKG) Abnormal 424.0 Mitral Valve Disorder Office Visit 06/19/2013 2:00p [facility] Milena Rose 427.31 Atrial Cardiology Of M.D. Fibrillation [employer] 427.32 Atrial Flutter 401.0 Hypertension Malignant Office Visit 06/05/2013 8:43a [facility] [place] 427.32 Atrial Flutter Of [employer] Bucky Fuentes Office Visit 06/04/2013 2:21p [facility] Antonino Garcia 427.32 Atrial Flutter Of [employer] Bucky Miller, [facility] Office Visit 06/03/2013 1:49p [facility] Antonino Garcia 427.32 Atrial Flutter Of [employer] Bucky Miller, [facility] Office Visit 06/02/2013 2:52p [facility] Milena Rose 427.31 Atrial Of [employer] M.D. Fibrillation Office Visit 06/01/2013 1:36p [facility] Milena Rose 427.31 Atrial Of [employer] M.D. Fibrillation Office Visit 05/16/2013 3:30p [facility] Nurse Visit 427.32 Atrial Flutter Of [employer] IC Office Visit 05/09/2013 3:45p [facility] Milena Rose 427.32 Atrial Flutter Of [employer] M.D. 424.0 Mitral Valve Disorder Office Visit 04/03/2013 11:15a [facility] Milena Rose 427.32 Atrial Flutter Of [employer] M.D. 427.31 Atrial Fibrillation 511.9 Pleurisy Effusion Unspec 782.3 Edema Office Visit 03/23/2013 [facility] 682.[facility] Cellulitis & 5:35p sheridan Vasquez II, M.D. Abscess Upper Hospitalists Arm & Forearm 288.8 White Blood Cell Disease Other 427.31 Atrial Fibrillation 511.9 Pleurisy Effusion Unspec Office Visit 03/22/2013 [facility] 682.3 Cellulitis & 5:35p sheridan Vasquez II, M.D. Abscess Upper Hospitalists Arm & Forearm 427.31 Atrial Fibrillation 244.9 Hypothyroidism Other Unspec 288.8 White Blood Cell Disease Other Office Visit 03/21/2013 [facility] 682.3 Cellulitis & 5:34p sheridan Vasquez II, M.D. Abscess Upper Hospitalists Arm & Forearm 427.31 Atrial Fibrillation 244.9 Hypothyroidism Other Unspec 288.8 White Blood Cell Disease Other Office Visit 03/20/2013 [facility] 682.3 Cellulitis & 5:34p sheridan Vasquez II, M.D. Abscess Upper Hospitalists Arm & Forearm 427.31 Atrial Fibrillation 244.9 Hypothyroidism Other Unspec 288.8 White Blood Cell Disease Other Office Visit 03/19/2013 [facility] 682.3 Cellulitis & 5:33p sheridan Vasquez II, M.D. Abscess Upper Hospitalists Arm & Forearm 427.31 Atrial Fibrillation 244.9 Hypothyroidism Other Unspec 288.8 White Blood Cell Disease Other Office Visit 03/18/2013 [facility] 682.3 Cellulitis & 5:32p sheridan Vasquez II, M.D. Abscess Upper Hospitalists Arm & Forearm 427.31 Atrial Fibrillation 244.9 Hypothyroidism Other Unspec 288.8 White Blood Cell Disease Other Office Visit 04/26/2012 [facility] Milena Rose, 427.31 Atrial Fibrillation 2:45p Of Rhys Lawler Office Visit 12/27/2009 [facility] 244.9 Hypothyroidism 1:30a sheridan Vasquez M.D. Other Unspec Hospitalists Office Visit 12/26/2009 [facility] Batool Dong, 511.9 Pleurisy Effusion 1:15a sheridan Vasquez M.D. Unspec Hospitalists Office Visit 12/25/2009 [facility] Daisha 511.9 Pleurisy Effusion 1:15a sheridan Vasquez M.D. Unspec Hospitalists Plan of Treatment Future Appointment(s):04/03/2019 6:20 am - Remote Device Checks at [facility]12/01/2018 - Kacy Cain MDB37.9 Candidiasis, [id number] Malignant neoplasm of unspecified site of left female breastFollow up:As needed
[2019-01-13] MEDS ORDERED: Senna TAB PO PRN (15:33)
[2019-01-13] MEDS ORDERED: Magnesium Hydroxide LIQ* 30 ML UDC PO PRN (15:33)
[2019-01-13] MEDS ORDERED: Acetaminophen TAB* 325 MG PO PRN (15:33)
[2019-01-13] MEDS ORDERED: Albuterol 2.5 MG/3 ML NEB.SOL* (0.083%) INH PRN (15:42)
[2019-01-13] MEDS ORDERED: Melatonin 3 MG TAB PO PRN (15:43)
[2019-01-13] MEDS: oxyCODONE/Acetamin 5/325 MG* TAB PO PRN ×2 (17:09→21:08)
--- NOTE | 2019-01-13 17:41 | HP ---
ADMISSION HISTORY AND PHYSICAL: DATE OF ADMISSION: 01/13/19 REASON FOR ADMISSION: Weakness from respiratory failure and sepsis; breast cancer. HISTORY OF ILLNESS AND HOSPITAL COURSE: Kallie Traylor is a 63-year-old female. She has a medical history significant for Hodgkin disease, which developed in the . It was diagnosed in 1987. She had recurrence in 1990. She underwent radiation to her mediastinum when the Hodgkin's was diagnosed in 1987. As a result of either the disease or the radiation, she developed a right-sided brachial neuropathy. The patient, unfortunately, continued to smoke after that. She developed COPD as well as congestive heart failure and pulmonary hypertension. She had several admissions in the fall of 2017 for congestive heart failure and shortness of breath. She had a CAT scan of her chest that showed a left breast mass in late 2017. She had a biopsy done by Dr. Valverde which was positive for breast cancer. She underwent a CT scan of her chest, abdomen, and pelvis for staging in August 2018. Left breast lesions were confirmed. She was admitted in September 2018 and underwent a left mastectomy with a left axillary dissection. She has had lymphedema of the left arm since that time. Also in September 2018, during that same procedure, she had a hysteroscopy done because of postmenopausal bleeding and she had a polypectomy done. The patient started chemotherapy on 12/21/18. She had her first cycle of Taxotere and Cytoxan. She developed profound hyponatremia and was hospitalized for that. She quickly developed respiratory distress. She was originally hospitalized on 12/26/18. As mentioned, after hospitalization, she developed respiratory distress and was intubated. During the hospitalization, she developed febrile neutropenia with septic shock. Her neutropenia eventually resolved after she got Neulasta. Her sputum grew out MSSA and she was on IV vancomycin as well as IV cefepime. Her blood cultures grew out Enterobacter, the source of which is unclear. She was extubated on 12/30/18. She had trouble with atrial fibrillation. Tikosyn was added. She was kept in the intensive care unit until 01/09/19 because of vascular access problems. A midline was put in and she was transferred to the floor. The patient was quite weak from her time in the intensive care unit. In addition, the patient had a hoarse voice. An ENT consult is pending. The patient was felt to have physical therapy and occupational therapy needs. She is now being admitted for inpatient rehab so she may return to independent living. PAST MEDICAL HISTORY: Past medical history is as noted above. In addition, the patient has a history of COPD, hypothyroidism, congestive heart failure, lymphedema of the left upper extremity, atrial fibrillation, single-vessel coronary artery disease, pulmonary hypertension, and she has had a splenectomy and appendectomy as well as a VATS procedure done on the right lung in 2011. Aortic Stenosis on echo 05/29. CURRENT MEDICATIONS: Include: 1. Tikosyn. 2. Xarelto. 3. Potassium. 4. Lopressor. 5. Lasix. 6. Percocet. 7. Melatonin. 8. Magnesium oxide. 9. Synthroid. 10. Pepcid. 11. Ventolin nebulizer. ALLERGIES: BETAPACE, CLINDAMYCIN, MULTAQ, LEVAQUIN, and PENICILLIN. SOCIAL HISTORY: She lives by herself in a 2-story apartment. Her bedroom and bathroom are upstairs. She has a brother who is her surrogate decision maker. She has no children. REVIEW OF SYSTEMS: The patient reports no current chest pain. She does report feeling fatigued. Does not feel short of breath. She is on 2 L of oxygen via nasal cannula. PHYSICAL EXAMINATION VITAL SIGNS: The patient's temperature is 98.4, blood pressure is 138/61, pulse 78, respirations 20. HEENT: Extraocular movements are intact. She has alopecia noted from her recent chemo. NECK: Supple. LUNGS: Coarse breath sounds bilaterally with diminished airflow at the bases. HEART: Heart sounds are regular. S1 and S2 audible. II/ systolic murmur ABDOMEN: Soft and nontender. EXTREMITIES: Normal tone. Her left upper extremity is quite edematous. Both lower extremities are edematous as well. NEUROLOGIC: Her right upper extremity has limited strength in both hand and wrist extension as well as wrist flexion. Her left upper extremity, although edematous, appears to have normal strength. Both lower extremities strength appears to be close to 5/5. FUNCTIONAL EXAM: The patient transfers with contact guard to min assist. ASSESSMENT: Respiratory failure in a patient with newly diagnosed breast cancer who has recently undergone her first round of chemotherapy. Chemotherapy was complicated by hyponatremia and then a hospitalization wherein she developed neutropenia and sepsis. PLAN: Our plan is to integrate her into a comprehensive and therapeutic rehab program with the following goals: 1. Physical Therapy will work with the patient. They are going to work on functional transfer training and ambulation training with a walker. 2. Occupational Therapy will see the patient and work on her activities of daily living including toileting and toilet transfers. 3. For her atrial fibrillation, we are going to continue her on the beta jairo, Tikosyn, and Xarelto. 4. Xarelto will be used for DVT prophylaxis. 5. Speech Therapy has already seen the patient for her hoarse voice and cannot do any treatments until the patient has an ENT evaluation. 6. For her congestive heart failure, we are going to continue Lasix and her beta jairo. 7. For her pain, we are going to continue Percocet. 8. Continue Synthroid for hypothyroidism. 9. For COPD, we will continue Ventolin nebulizers. We may switch her to inhalers at some point. Continue supplemental oxygen at this time. 10. For her pneumonia and sepsis, she has completed a course of antibiotics. We will continue close monitoring. 11. Terminal Gauger will be closely involved to make sure that any services and equipment the patient requires are in place prior to discharge. 12. Family training as appropriate. 13. Home with appropriate services. ESTIMATED LENGTH OF STAY: 12 to 14 days. [id number]/[facility] [place] #: [id number] SHRAVAN
[2019-01-13] MEDS: Rivaroxaban TAB(*) 20 MG TAB PO SCH (18:49)
[2019-01-13] MEDS: Metoprolol Tartrate TAB* 25 MG PO SCH (21:09)
[2019-01-13] MEDS: Dofetilide CAP* 250 MCG PO SCH (21:09)
[2019-01-13] MEDS: Docusate CAP* 100 MG PO SCH (21:09)
[2019-01-14] MEDS: oxyCODONE/Acetamin 5/325 MG* TAB PO PRN ×5 (03:06→23:28)
[2019-01-14] MEDS: Levothyroxine TAB* 75 MCG TAB PO SCH (05:53)
[2019-01-14] MEDS: Metoprolol Tartrate TAB* 25 MG PO SCH ×2 (08:34→20:11)
[2019-01-14] MEDS: Famotidine TAB* 20 MG PO SCH (08:35)
[2019-01-14] MEDS: Magnesium Oxide TAB* 400 MG PO SCH (08:35)
[2019-01-14] MEDS: Docusate CAP* 100 MG PO SCH ×3 (08:36→20:11)
[2019-01-14] MEDS: Dofetilide CAP* 250 MCG PO SCH ×2 (08:36→20:11)
[2019-01-14] MEDS: Potassium Chlor TAB* 20 MEQ TAB.ER PO SCH (08:37)
[2019-01-14] MEDS: Furosemide TAB* 20 MG PO SCH (08:38)
--- NOTE | 2019-01-14 18:03 | PN ---
Progress Note Date of Service: 01/14/19 Note: MINE PATEL was visited. Therapy notes read and reviewed. She feels she did well with therapy but fatigues easily. Her pain is controlled with the medications. Her O2 sats ar 97-99% on 1 lpm O2 Current Medications: Active Medications Generic Name Dose Route Start Last Admin Trade Name Freq PRN Reason Stop Dose Admin Acetaminophen 650 mg 01/13/19 15:33 Tylenol Tab* PO Q6H PRN FEVER/PAIN Albuterol 2.5 mg 01/13/19 15:42 01/13/19 16:56 Ventolin 2.5 Mg/3 Ml Neb.Rose* INH 2.5 mg Q4H PRN Administration SOB/WHEEZING Docusate Sodium 100 mg 01/13/19 21:00 01/14/19 08:41 Colace Cap* PO Not Given BID ÁLVARO Dofetilide 250 mcg 01/13/19 21:00 01/14/19 08:36 Tikosyn Cap* PO 250 mcg BID ÁLVARO Administration Famotidine 20 mg 01/14/19 09:00 01/14/19 08:35 Pepcid Tab* PO 20 mg DAILY ÁLVARO Administration Furosemide 40 mg 01/14/19 09:00 01/14/19 08:38 Lasix Tab* PO 40 mg DAILY ÁLVARO Administration Heparin Sodium (Porcine) 1 ml 01/13/19 18:00 01/14/19 05:53 Heparin Flush Picc/Ml/Cvc(*) FLUSH 1 ml 0600,1800 ÁLVARO Administration Protocol Levothyroxine Sodium 75 mcg 01/14/19 06:00 01/14/19 05:53 Synthroid Tab* PO 75 mcg DAILY@0600 ÁLVARO Administration Lorazepam 0.5 mg 01/13/19 15:41 Ativan Tab(*) PO Q6H PRN ANXIETY Magnesium Hydroxide 30 ml 01/13/19 15:33 Milk Of Magnesia Liq* PO Q6H PRN CONSTIPATION Magnesium Oxide 400 mg 01/14/19 09:00 01/14/19 08:35 Magox 400 Tab* PO 400 mg DAILY ÁLVARO Administration Melatonin 3 mg 01/13/19 15:43 01/13/19 21:09 Melatonin PO 3 mg BEDTIME PRN Administration INSOMNIA Metoprolol Tartrate 25 mg 01/13/19 21:00 01/14/19 08:34 Lopressor Tab* PO 25 mg BID ÁLVARO Administration Oxycodone/Acetaminophen 1 tab 01/13/19 15:41 01/14/19 13:13 Percocet 5/325 Tab* PO 1 tab Q4H PRN Administration PAIN - MODERATE TO SEVERE Potassium Chloride 20 meq 01/14/19 09:00 01/14/19 08:37 Klor Con Er Tab* PO 20 meq DAILY ÁLVARO Administration Rivaroxaban 20 mg 01/13/19 18:00 01/13/19 18:49 Xarelto(*) PO 20 mg QPM ÁLVARO Administration Senna 2 tab 01/13/19 15:33 Senokot Tab* PO BEDTIME PRN CONSTIPATION Vital Signs: Vital Signs Temp Pulse Resp BP Pulse Ox 97.7 F 79 18 117/62 100 01/14/19 15:16 01/14/19 15:16 01/14/19 15:16 01/14/19 15:16 01/14/19 16:00 Exam: HEENT: Alopecia LUNGS: Diminished BS at bases HEART: II/ systolic murmur ABDOMEN: Soft EXTREMITIES: LUE with lymphedema, bilat LE edema NEUROLOGIC: Decreased hand vice president for instruction and wrist ext Assessment/Plan: 1. Fatigue from respiratory failure, MSSA pneumonia and sepsis: PT/OT 2. Breast Cancer: Chemo per oncology 3. Hyponatremia: Check labs Wednesday 4. History of CHF/Aortic Stenosis: Lasix 5. Atrial fibrillation: Xarelto/Lopressor 6. Right brachial plexus lesion: Supportive care 7. Hypothyroidism: Synthroid 8. DVT Prophylaxis: Xarelto 9. Advance Directives: Full code; Brother is surrogate decision maker 01/14/19 18:13 01/14/19 18:16
[2019-01-14] MEDS: Rivaroxaban TAB(*) 20 MG TAB PO SCH (18:41)
[2019-01-15] MEDS: oxyCODONE/Acetamin 5/325 MG* TAB PO PRN ×5 (03:50→23:37)
[2019-01-15] MEDS: Levothyroxine TAB* 75 MCG TAB PO SCH (05:12)
[2019-01-15] MEDS: Docusate CAP* 100 MG PO SCH ×2 (08:06→20:11)
[2019-01-15] MEDS: Dofetilide CAP* 250 MCG PO SCH ×2 (08:06→20:09)
[2019-01-15] MEDS: Metoprolol Tartrate TAB* 25 MG PO SCH ×2 (08:07→20:08)
[2019-01-15] MEDS: Potassium Chlor TAB* 20 MEQ TAB.ER PO SCH (08:07)
[2019-01-15] MEDS: Magnesium Oxide TAB* 400 MG PO SCH (08:07)
[2019-01-15] MEDS: Furosemide TAB* 20 MG PO SCH (08:07)
[2019-01-15] MEDS: Famotidine TAB* 20 MG PO SCH (08:07)
--- NOTE | 2019-01-15 16:52 | PN ---
Progress Note Date of Service: 01/15/19 Note: MINE PATEL was visited. Therapy notes read and reviewed. Her sats are okay but she is bringing up loose phlegm. Will order Mucinex Current Medications: Active Medications Generic Name Dose Route Start Last Admin Trade Name Freq PRN Reason Stop Dose Admin Acetaminophen 650 mg 01/13/19 15:33 Tylenol Tab* PO Q6H PRN FEVER/PAIN Albuterol 2.5 mg 01/13/19 15:42 01/13/19 16:56 Ventolin 2.5 Mg/3 Ml Neb.Rose* INH 2.5 mg Q4H PRN Administration SOB/WHEEZING Device 1 each 01/15/19 17:00 Tiotropium Inhaler Device* INH .USE w/ SPIRIVA CAPS ÁLVARO Docusate Sodium 100 mg 01/13/19 21:00 01/15/19 08:06 Colace Cap* PO Not Given BID ÁLVARO Dofetilide 250 mcg 01/13/19 21:00 01/15/19 08:06 Tikosyn Cap* PO 250 mcg BID ÁLVARO Administration Famotidine 20 mg 01/14/19 09:00 01/15/19 08:07 Pepcid Tab* PO 20 mg DAILY ÁLVARO Administration Furosemide 40 mg 01/14/19 09:00 01/15/19 08:07 Lasix Tab* PO 40 mg DAILY ÁLVARO Administration Guaifenesin 600 mg 01/15/19 21:00 Mucinex* PO BID ÁLVARO Heparin Sodium (Porcine) 1 ml 01/13/19 18:00 01/15/19 05:12 Heparin Flush Picc/Ml/Cvc(*) FLUSH 1 ml 0600,1800 ÁLVARO Administration Protocol Levothyroxine Sodium 75 mcg 01/14/19 06:00 01/15/19 05:12 Synthroid Tab* PO 75 mcg DAILY@0600 ÁLVARO Administration Lorazepam 0.5 mg 01/13/19 15:41 Ativan Tab(*) PO Q6H PRN ANXIETY Magnesium Hydroxide 30 ml 01/13/19 15:33 Milk Of Magnesia Liq* PO Q6H PRN CONSTIPATION Magnesium Oxide 400 mg 01/14/19 09:00 01/15/19 08:07 Magox 400 Tab* PO 400 mg DAILY ÁLVARO Administration Melatonin 3 mg 01/13/19 15:43 01/13/19 21:09 Melatonin PO 3 mg BEDTIME PRN Administration INSOMNIA Metoprolol Tartrate 25 mg 01/13/19 21:00 01/15/19 08:07 Lopressor Tab* PO 25 mg BID ÁLVARO Administration Oxycodone/Acetaminophen 1 tab 01/13/19 15:41 01/15/19 14:03 Percocet 5/325 Tab* PO 1 tab Q4H PRN Administration PAIN - MODERATE TO SEVERE Potassium Chloride 20 meq 01/14/19 09:00 01/15/19 08:07 Klor Con Er Tab* PO 20 meq DAILY ÁLVARO Administration Rivaroxaban 20 mg 01/13/19 18:00 01/14/19 18:41 Xarelto(*) PO 20 mg QPM ÁLVARO Administration Senna 2 tab 01/13/19 15:33 Senokot Tab* PO BEDTIME PRN CONSTIPATION Tiotropium [place] 1 cap 01/16/19 09:00 Spiriva Cap.Inh* INH DAILY ÁLVARO Vital Signs: Vital Signs Temp Pulse Resp BP Pulse Ox 98.4 F 81 18 125/69 98 01/15/19 15:00 01/15/19 15:00 01/15/19 15:00 01/15/19 15:00 01/15/19 15:00 Exam: HEENT: Alopecia LUNGS: Diminished BS at bases, scattered wheeze HEART: II/ systolic murmur ABDOMEN: Soft EXTREMITIES: LUE with lymphedema, bilat LE edema NEUROLOGIC: Decreased hand delivery driver assistant and wrist ext RUE Assessment/Plan: 1. Fatigue from respiratory failure, MSSA pneumonia and sepsis: PT/OT 2. Breast Cancer: Chemo per oncology; onc note states no further chemo planned at this time 3. Hyponatremia: Check labs Wednesday 4. History of CHF/Aortic Stenosis: Lasix 5. Atrial fibrillation: Xarelto/Lopressor 6. Right brachial plexus lesion: Supportive care 7. Hypothyroidism: Synthroid 8. DVT Prophylaxis: Xarelto 9. Advance Directives: Full code; Brother is surrogate decision maker 01/15/19 16:53
[2019-01-15] MEDS ORDERED: Spiriva Inhaler DEVICE* 1 EACH DEVICE INH SCH (17:00)
[2019-01-15] MEDS: Rivaroxaban TAB(*) 20 MG TAB PO SCH (17:43)
[2019-01-15] MEDS: guaiFENesin ER TAB 600 MG PO SCH (20:08)
[2019-01-16] MEDS: Levothyroxine TAB* 75 MCG TAB PO SCH (05:11)
[2019-01-16 05:30] LABS: ABS Basophils 0.1 10^3/ul (0-0.2); ABS Lymphocytes 0.7 10^3/ul (1.0-4.8); ABS Monocytes 1.1 10^3/ul (0-0.8); ABS Neutrophils 6.5 10^3/ul (1.5-7.7); Eosinophil % 0.4 %; Hematocrit 34 % (35-47); Hemoglobin 11.2 g/dL (12.0-16.0); Lymphocyte % 7.8 %; Mean Corpuscular HGB Conc 33 g/dL (31-36); Mean Corpuscular Hemoglobin 30 pg (27-31); Mean Corpuscular Volume 91 fL (80-97); Mean Platelet Volume 8.2 fL (7.4-10.4); Nucleated Red Blood Cells % 0.2; Platelet Count 399 10^3/uL (150-450); Red Blood Count 3.74 10^6 /uL (3.70-4.87); Red Cell Distribution Width 18 % (10-15); White Blood Count 8.4 10^3/uL (3.5-10.8)
[2019-01-16] MEDS: oxyCODONE/Acetamin 5/325 MG* TAB PO PRN ×4 (05:40→20:14)
[2019-01-16 05:42] LABS: Albumin 3.5 g/dL (3.2-5.2); Albumin/Globulin Ratio 1.1 (1-3); BUN/Creatinine Ratio 30.6 (8-20); Calcium 9.2 mg/dL (8.6-10.3); EGFR Non-African American 97.5 (>60); Globulin 3.3 g/dL (2-4); Potassium 4.2 mmol/L (3.5-5.0); Total Bilirubin 0.5 mg/dL (0.2-1.0); Total Protein 6.8 g/dL (6.4-8.9)
[2019-01-16] MEDS: Tiotropium CAP.INH* CAP.INH/18 MCG (USE ORDER SET !) INH SCH (08:07)
[2019-01-16] MEDS: Dofetilide CAP* 250 MCG PO SCH ×2 (09:30→21:42)
[2019-01-16] MEDS: Metoprolol Tartrate TAB* 25 MG PO SCH ×2 (09:31→21:44)
[2019-01-16] MEDS: Potassium Chlor TAB* 20 MEQ TAB.ER PO SCH (09:32)
[2019-01-16] MEDS: guaiFENesin ER TAB 600 MG PO SCH ×2 (09:32→21:42)
[2019-01-16] MEDS: Magnesium Oxide TAB* 400 MG PO SCH (09:33)
[2019-01-16] MEDS: Famotidine TAB* 20 MG PO SCH (09:33)
[2019-01-16] MEDS: Furosemide TAB* 20 MG PO SCH (09:43)
[2019-01-16] MEDS: Docusate CAP* 100 MG PO SCH ×2 (09:45→21:42)
--- NOTE | 2019-01-16 13:04 | PMRUTEAM ---
PMRU: Team Meeting Current Status: Nursing: Current Status Skin Deviations [Right Arm] Other Skin Deviations [Finger] Other Skin Deviations [Left Groin] Previous Access Point Skin Deviation Description [ Mid line IV catheter right upper arm. Dressing dry Right Arm] and intact. Skin Deviation Description [ swelling, dusky , cold to touch Finger] Skin Deviation Description [ LOU Left Groin] Physical Therapy: Current Status Bed Mobility Assistance Supervision Transfer Mobility Assistance Contact Guard Assist Transfer/Bed Mobility Rolling Walker Recommended Devices Ambulation Assistance Contact Guard Assist Ambulation Assistive Devices Rolling Walker Number of Feet Patient 200 Ambulated Stairs Assistance Supervision Stairs Recommended Devices Two Rails Number of Stairs 2x5 (10) Occupational Therapy: Current Status Upper Body Dressing Supervision Lower Body Dressing Supervision Bathing Supervision Toileting Contact Guard Assist Toilet Transfer Contact Guard Assist Shower Transfer Contact Guard Assist Eating Supervision Rec Therapy: Current Status Summary of Assessment and Patient was open to meeting with this sba underwriter to Clinical Impression discuss her leisure lifestyle prior to admission. Patient was euthymic with congruent affect, able to identify several interests. Patient declined a lab rep visit. Patient is open to continued leisure visits and seemed excited for activities. Treatment Goals Patient will engage in recreation and leisure activities while on the unit. Treatment Plan Provide and encourage involvement in RT services. Follow up with patient and offer 1:1 leisure sessions regularly. Social Work: Current Status Discharge Plan return home with home care svs and family support Potential for Family Training pt's brother is involved and supportive Anticipated Discharge Home Destination Discharge With home care svs and family support Goals: Physical Therapy: Initial Goals Bed Mobility Assistance Independent Transfer Mobility Assistance Independent Transfer/Bed Mobility Rolling Walker Recommended Devices Ambulation Independent Ambulation Recommended Devices Rolling Walker Ambulation Distance 150 Stairs Assistance Independent Stair Recommended Devices Two Rails Number of Stairs flight Home Exercise Program Independent Assistance Physical Therapy: Updated Goals Bed Mobility Assistance Independent Transfer Mobility Assistance Independent Transfer/Bed Mobility None Recommended Devices Ambulation Assistance Independent Ambulation Assistive Devices None Ambulation Distance (ft) 150 Stairs Assistance Independent Stairs Recommended Devices One Rail Number of Stairs flight Home Exercise Program Independent Assistance Occupational Therapy: Initial Goals Goals to be Completed in (Days 10-14 days ) Upper Body Bathing Routine Independent Lower Body Bathing Routine Modified Independent with Upper Body Dressing Routine Independent Lower Body Dressing Routine Modified Independent with Toilet Hygeine and Clothing Modified Independent with Management Routine Toilet Transfer Routine Modified Independent with Tub Transfer Routine Modified Independent with Functional Transfers for ADL Modified Independent with Grooming Routine Modified Independent with Feeding Routine Modified Independent with Social Work: Goals Discharge Plan return home with home care svs and family support Potential for Family Training pt's brother is involved and supportive Anticipated Discharge Home Destination Discharge With home care svs and family support Care Plan: Care Plan Cardiovascular- Improve/Maintain Start: 01/13/19 22:26 Freq: QSHIFT Status: Active Target: Protocol: Activity Type Activity Date Activity User E-Sign Co-Sign Detail Recorded Client Recorded Date Recorded By Document 01/16/19 00:28 [id number] 01/16/19 00:31 [id number] 01/16/19 00:28 PMRU Outcome: Cardiovascular Vital Signs q Shift for 48hrs Then BID Yes Daily Weight Ordered No Current Cardiovascular Outcome/Goal Maintain/ Achieve Baseline HR, BP , Perfusion Progression Toward Outcome/Goal Progressing Coping/Psych-Improve/Maintain Start: 01/13/19 22:26 Freq: QSHIFT Status: Active Target: Protocol: Activity Type Activity Date Activity User E-Sign Co-Sign Detail Recorded Client Recorded Date Recorded By Document 01/16/19 00:28 [id number] [email or web address] 01/16/19 00:31 [id number] 01/16/19 00:28 PMRU Outcome: Coping/Psychosocial Coping Outcome/Goals Verbalization of Acceptance of Rehab Admit Coping Outcome/Goals Met Demonstrates Understanding of Rehab Admit and Goal Setting Process Performs Actions to Reduce Fear and Anxiety DVT Prophylaxis- Improve/Maintain Start: 01/13/19 22:26 Freq: QSHIFT Status: Active Target: Protocol: Activity Type Activity Date Activity User E-Sign Co-Sign Detail Recorded Client Recorded Date Recorded By Document 01/16/19 00:28 [id number] [email or web address] 01/16/19 00:31 [id number] 01/16/19 00:28 PMRU Outcome: DVT Prophylaxis Outcome/Goals Remains Free of DVT Progression Toward Outcome/Goals Progressing Discharge Planning - Improve/Maintain Start: 01/13/19 22:26 Freq: DAILY Status: Active Target: Protocol: Activity Type Activity Date Activity User E-Sign Co-Sign Detail Recorded Client Recorded Date Recorded By Document 01/16/19 00:31 [id number] [email or web address] 01/16/19 00:31 [id number] 01/16/19 00:31 PMRU Outcome: Discharge Planning Update Patient Family No Outcome/Goals Demonstrates Understanding of Discharge Plan Education-Improve/Maintain Start: 01/13/19 22:26 Freq: QSHIFT Status: Active Target: Protocol: Activity Type Activity Date Activity User E-Sign Co-Sign Detail Recorded Client Recorded Date Recorded By Document 01/16/19 00:28 [id number] [email or web address] 01/16/19 00:31 [id number] 01/16/19 00:28 PMRU Outcome: Education Outcome/Goals Demonstrate/ Verbalize Understanding of Written Discharge Instructions Demonstrates Skills Progression Toward Outcome/Goals Progressing Medication Administration Start: 01/13/19 22:26 Freq: QSHIFT Status: Active Target: Protocol: Activity Type Activity Date Activity User E-Sign Co-Sign Detail Recorded Client Recorded Date Recorded By Document 01/16/19 00:28 [id number] [email or web address] 01/16/19 00:31 [id number] 01/16/19 00:28 PMRU Outcome: Medication Administration Assess Patient Knowledge/Teach Med Yes Education for all Meds Outcome/Goals Patient Independent with Medication Administration at Home Progression Towards Outcome/Goals Progressing Is Patient Going Home on Lovenox? No Pain/Comfort- Improve/Maintain Start: 01/13/19 22:26 Freq: QSHIFT Status: Active Target: Protocol: Activity Type Activity Date Activity User E-Sign Co-Sign Detail Recorded Client Recorded Date Recorded By Document 01/16/19 00:28 [id number] [email or web address] 01/16/19 00:31 [id number] 01/16/19 00:28 PMRU Outcome: Pain/Comfort Outcome/Goals Demonstrates Knowledge and Use of Available Comfort Measures Progression Toward Outcome/Goals Progressing Outcome/Goals Met Comment pain medication given Respiratory - Improve/Maintain Start: 01/13/19 22:26 Freq: QSHIFT Status: Active Target: Protocol: Activity Type Activity Date Activity User E-Sign Co-Sign Detail Recorded Client Recorded Date Recorded By Document 01/16/19 00:28 [id number] [email or web address] 01/16/19 00:31 [id number] 01/16/19 00:28 PMRU Outcome: Respiratory Does Patient Have a Trach No Outcome/Goals Maintain/ Improve O2 Sat per MD Order Maintain/ Improve Activity Tolerance Progression Toward Outcome/Goals Progressing Outcome/Goals Met Comment [address] @ Safety- Improve/Maintain Start: 01/13/19 22:26 Freq: QSHIFT Status: Active Target: Protocol: Activity Type Activity Date Activity User E-Sign Co-Sign Detail Recorded Client Recorded Date Recorded By Document 01/16/19 00:28 [id number] [email or web address] 01/16/19 00:31 [id number] 01/16/19 00:28 PMRU Outcome: Safety Outcome/Goals Remain Free of Injury or Harm Cooperates with Safety Measures for Least Restrictive Environment Progression Toward Outcome/Goals Progressing Outcome/Goals Met Comment BA armed Skin- Improve/Maintain Start: 01/13/19 22:26 Freq: QSHIFT Status: Active Target: Protocol: Activity Type Activity Date Activity User E-Sign Co-Sign Detail Recorded Client Recorded Date Recorded By Document 01/16/19 00:28 [id number] [email or web address] 01/16/19 00:31 [id number] 01/16/19 00:28 PMRU Outcome: Skin Skin Risk Level Low Outcome/Goals Maintain/ Improve Skin Intergrity Free from Decubitus Progression Toward Outcome/Goals Progressing Medicine Note: Length of Stay: 4 days Anticipated Discharge Destination: Home Tentative Discharge Date: 01/19/19 Discharged to: Home
--- NOTE | 2019-01-16 18:26 | PN ---
Progress Note Date of Service: 01/16/19 Note: MINE PATEL was visited. Therapy notes read and reviewed. She was discussed in interdisciplinary plan of care rounds. She is doing okay, moving well, fearful of going home Current Medications: Active Medications Generic Name Dose Route Start Last Admin Trade Name Freq PRN Reason Stop Dose Admin Acetaminophen 650 mg 01/13/19 15:33 Tylenol Tab* PO Q6H PRN FEVER/PAIN Albuterol 2.5 mg 01/13/19 15:42 01/13/19 16:56 Ventolin 2.5 Mg/3 Ml Neb.Rose* INH 2.5 mg Q4H PRN Administration SOB/WHEEZING Device 1 each 01/15/19 17:00 Tiotropium Inhaler Device* INH .USE w/ SPIRIVA CAPS ÁLVARO Docusate Sodium 100 mg 01/13/19 21:00 01/16/19 09:45 Colace Cap* PO Not Given BID ÁLVARO Dofetilide 250 mcg 01/13/19 21:00 01/16/19 09:30 Tikosyn Cap* PO 250 mcg BID ÁLVARO Administration Famotidine 20 mg 01/14/19 09:00 01/16/19 09:33 Pepcid Tab* PO 20 mg DAILY ÁLVARO Administration Furosemide 40 mg 01/14/19 09:00 01/16/19 09:43 Lasix Tab* PO 40 mg DAILY ÁLVARO Administration Guaifenesin 600 mg 01/15/19 21:00 01/16/19 09:32 Mucinex* PO 600 mg BID ÁLVARO Administration Heparin Sodium (Porcine) 1 ml 01/13/19 18:00 01/16/19 05:15 Heparin Flush Picc/Ml/Cvc(*) FLUSH 1 ml 0600,1800 ÁLVARO Administration Protocol Levothyroxine Sodium 75 mcg 01/14/19 06:00 01/16/19 05:11 Synthroid Tab* PO 75 mcg DAILY@0600 ÁLVARO Administration Lorazepam 0.5 mg 01/13/19 15:41 Ativan Tab(*) PO Q6H PRN ANXIETY Magnesium Hydroxide 30 ml 01/13/19 15:33 Milk Of Magnesia Liq* PO Q6H PRN CONSTIPATION Magnesium Oxide 400 mg 01/14/19 09:00 01/16/19 09:33 Magox 400 Tab* PO 400 mg DAILY ÁLVARO Administration Melatonin 3 mg 01/13/19 15:43 01/13/19 21:09 Melatonin PO 3 mg BEDTIME PRN Administration INSOMNIA Metoprolol Tartrate 25 mg 01/13/19 21:00 01/16/19 09:31 Lopressor Tab* PO 25 mg BID ÁLVARO Administration Oxycodone/Acetaminophen 1 tab 01/13/19 15:41 01/16/19 16:02 Percocet 5/325 Tab* PO 1 tab Q4H PRN Administration PAIN - MODERATE TO SEVERE Potassium Chloride 20 meq 01/14/19 09:00 01/16/19 09:32 Klor Con Er Tab* PO 20 meq DAILY ÁLVARO Administration Rivaroxaban 20 mg 01/13/19 18:00 01/15/19 17:43 Xarelto(*) PO 20 mg QPM ÁLVARO Administration Senna 2 tab 01/13/19 15:33 Senokot Tab* PO BEDTIME PRN CONSTIPATION Tiotropium [place] 1 cap 01/16/19 09:00 01/16/19 08:07 Spiriva Cap.Inh* INH Not Given DAILY [facility] Vital Signs: Vital Signs Temp Pulse Resp BP Pulse Ox 97.8 F 78 20 115/64 99 01/16/19 15:49 01/16/19 15:49 01/16/19 16:02 01/16/19 15:49 01/16/19 15:49 Lab Results: Laboratory Results - last 24 hr 01/16/19 01/16/19 05:09 05:09 WBC 8.4 RBC 3.74 Hgb 11.2 L Hct 34 L MCV 91 MCH 30 MCHC 33 RDW 18 H Plt Count 399 MPV 8.2 Neut % (Auto) 77.6 Lymph % (Auto) 7.8 Clark % (Auto) 12.8 Eos % (Auto) 0.4 Baso % (Auto) 1.4 Absolute Neuts (auto) 6.5 Absolute Lymphs (auto) 0.7 L Absolute Monos (auto) 1.1 H Absolute Eos (auto) 0.0 Absolute Basos (auto) 0.1 Absolute Nucleated RBC 0.0 Nucleated RBC % 0.2 Sodium 136 Potassium 4.2 Chloride 94 L Carbon Dioxide 39 H Anion Gap 3 BUN 19 Creatinine 0.62 Est GFR ( Amer) 118.0 Est GFR (Non-Af Amer) 97.5 BUN/Creatinine Ratio 30.6 H Glucose 113 H Calcium 9.2 Total Bilirubin 0.50 AST 23 ALT 18 Alkaline Phosphatase 43 Total Protein 6.8 Albumin 3.5 Globulin 3.3 Albumin/Globulin Ratio 1.1 Exam: HEENT: Alopecia LUNGS: Diminished BS at bases, scattered wheeze HEART: II/ systolic murmur ABDOMEN: Soft EXTREMITIES: LUE with lymphedema, bilat LE edema NEUROLOGIC: Decreased hand information resources director and wrist ext RUE Assessment/Plan: 1. Fatigue from respiratory failure, MSSA pneumonia and sepsis: PT/OT 2. Breast Cancer: Chemo per oncology; onc note states no further chemo planned at this time 3. Hyponatremia: Check labs Wednesday 4. History of CHF/Aortic Stenosis: Lasix 5. Atrial fibrillation: Xarelto/Lopressor 6. Right brachial plexus lesion: Supportive care 7. Hypothyroidism: Synthroid 8. COPD: Spiriva/Albuterol 9. DVT Prophylaxis: Xarelto 10. Advance Directives: Full code; Brother is surrogate decision maker 01/16/19 18:27
[2019-01-16] MEDS: Rivaroxaban TAB(*) 20 MG TAB PO SCH (18:30)
[2019-01-17] MEDS: oxyCODONE/Acetamin 5/325 MG* TAB PO PRN ×5 (01:50→21:52)
[2019-01-17] MEDS: Levothyroxine TAB* 75 MCG TAB PO SCH (05:40)
[2019-01-17] MEDS: Potassium Chlor TAB* 20 MEQ TAB.ER PO SCH (08:10)
[2019-01-17] MEDS: Metoprolol Tartrate TAB* 25 MG PO SCH ×2 (08:10→21:18)
[2019-01-17] MEDS: Tiotropium CAP.INH* CAP.INH/18 MCG (USE ORDER SET !) INH SCH (08:11)
[2019-01-17] MEDS: guaiFENesin ER TAB 600 MG PO SCH ×2 (08:11→21:18)
[2019-01-17] MEDS: Famotidine TAB* 20 MG PO SCH (08:12)
[2019-01-17] MEDS: Furosemide TAB* 20 MG PO SCH (08:12)
[2019-01-17] MEDS: Magnesium Oxide TAB* 400 MG PO SCH (08:12)
[2019-01-17] MEDS: Docusate CAP* 100 MG PO SCH ×2 (08:13→21:18)
[2019-01-17] MEDS: Dofetilide CAP* 250 MCG PO SCH ×2 (09:22→21:18)
--- NOTE | 2019-01-17 13:02 | PMRUTEAM ---
PMRU: Team Meeting Current Status: Nursing: Current Status Skin Deviations [Right Arm] Other Skin Deviations [Finger] Other Skin Deviations [Left Groin] Bruise,Previous Access Point Skin Deviation Description [ Midline in place Right Arm] Skin Deviation Description [ swelling, dusky, cold to touch Finger] Skin Deviation Description [ D[employer]OND Left Groin] Bladder Current Status Continent - voiding WNL Bowel Current Status Continent- last BM this AM 01/17/19 Medication Current Status Percocet for pain Physical Therapy: Current Status Bed Mobility Assistance Supervision Transfer Mobility Assistance Supervision Transfer/Bed Mobility None Recommended Devices Ambulation Assistance Supervision,Contact Guard Assist Ambulation Assistive Devices None Number of Feet Patient 170 Ambulated Stairs Assistance Supervision Stairs Recommended Devices Two Rails Number of Stairs 2x5 (10) Occupational Therapy: Current Status Upper Body Dressing Supervision Lower Body Dressing Supervision,Contact Guard Assist Bathing Supervision,Contact Guard Assist Toileting Supervision Toilet Transfer Supervision Shower Transfer Contact Guard Assist Shower Transfer Progress TBA Eating Independent Rec Therapy: Current Status Summary of Assessment and RT assessment completed on 01/16. Patient was Clinical Impression euthymic with congruent affect. Patient identified multiple leisure interests and is open to continued leisure sessions. Patient appeared to have a positive visit and participated in pet therapy. Treatment Goals Patient will engage in recreation and leisure activities while on the unit. Treatment Plan Provide and encourage involvement in RT services. Social Work: Current Status Discharge Plan return home with home care svs and family support Potential for Family Training n/a pt lives alone Anticipated Discharge Home Destination Discharge With home care svs and family support Nutrition: Current Status Monitoring Pt has newly diagnosed breast cancer s/p first round of chemo. She was admitted to [facility] following acute care admission for respiratory failure, hyponatremia, neutropenia, and sepsis. Pt is ordered for a regular unrestricted diet. Per chart , intake has been good (mostly 100% of meals). No GI s/sx, such as N/V, noted. Last BM documented 01/17. Per chart, pt w/o pressure related skin breakdown. Pt w/o difficulty chewing/swallowing per nursing assessment. Labs reviewed 01/16; electrolytes WNL, B. Full nutrition assessment to follow per protocol. Goals: Physical Therapy: Initial Goals Bed Mobility Assistance Independent Transfer Mobility Assistance Independent Transfer/Bed Mobility Rolling Walker Recommended Devices Ambulation Independent Ambulation Recommended Devices Rolling Walker Ambulation Distance 150 Stairs Assistance Independent Stair Recommended Devices Two Rails Number of Stairs flight Home Exercise Program Independent Assistance Physical Therapy: Updated Goals Bed Mobility Assistance Independent Transfer Mobility Assistance Independent Transfer/Bed Mobility None Recommended Devices Ambulation Assistance Independent Ambulation Assistive Devices None Ambulation Distance (ft) 150 Stairs Assistance Independent Stairs Recommended Devices One Rail Number of Stairs flight Home Exercise Program Independent Assistance Occupational Therapy: Initial Goals Goals to be Completed in (Days 10-14 days ) Upper Body Bathing Routine Independent Lower Body Bathing Routine Modified Independent with Upper Body Dressing Routine Independent Lower Body Dressing Routine Modified Independent with Toilet Hygeine and Clothing Modified Independent with Management Routine Toilet Transfer Routine Modified Independent with Tub Transfer Routine Modified Independent with Functional Transfers for ADL Modified Independent with Grooming Routine Modified Independent with Feeding Routine Modified Independent with Nursing: Goals Bladder Goal Independent Bowel Goal Independent Medication Goal Independent with medication Nutrition: Goals Intervention Goals 1. Adequate PO intake to maintain lean body mass and hydration w/o undesired wt loss 2. Electrolytes will be maintained w/ appropriate fluid status 3. Maintain bowel regularity w/o constipation or diarrhea Social Work: Goals Discharge Plan return home with home care svs and family support Potential for Family Training n/a pt lives alone Anticipated Discharge Home Destination Discharge With home care svs and family support Care Plan: Care Plan Cardiovascular- Improve/Maintain Start: 01/13/19 22:26 Freq: QSHIFT Status: Active Target: Protocol: Activity Type Activity Date Activity User E-Sign Co-Sign Detail Recorded Client Recorded Date Recorded By Document 01/17/19 08:00 [id number] [id number] 01/17/19 08:43 [id number] 01/17/19 08:00 PMRU Outcome: Cardiovascular Vital Signs q Shift for 48hrs Then BID Yes Daily Weight Ordered No Current Cardiovascular Outcome/Goal Maintain/ Achieve Baseline HR, BP , Perfusion Maintain/ Achieve Hemodynamic Stability Progression Toward Outcome/Goal Progressing Coping/Psych-Improve/Maintain Start: 01/13/19 22:26 Freq: QSHIFT Status: Active Target: Protocol: Activity Type Activity Date Activity User E-Sign Co-Sign Detail Recorded Client Recorded Date Recorded By Document 01/17/19 08:00 [id number] 01/17/19 08:43 [id number] 01/17/19 08:00 PMRU Outcome: Coping/Psychosocial Coping Outcome/Goals Verbalization of Acceptance of Rehab Admit Verbalization of Sense of Control Over Health Status Utilization of Appropriate Problem Solving Techniques Willingness to Participate in Treatment Plan and Basic Needs Utilization of Available Support Systems Psychosocial Outcome/Goals Demonstrates Knowledge of Healthy Coping Mechanisms Available Progression Toward Outcome/Goals - Progressing Coping Progression Toward Outcome/Goals - Progressing Psychosocial DVT Prophylaxis- Improve/Maintain Start: 01/13/19 22:26 Freq: QSHIFT Status: Active Target: Protocol: Activity Type Activity Date Activity User E-Sign Co-Sign Detail Recorded Client Recorded Date Recorded By Document 01/17/19 08:00 [id number] [email or web address] 01/17/19 08:43 [id number] 01/17/19 08:00 PMRU Outcome: DVT Prophylaxis Outcome/Goals Remains Free of DVT Complies with DVT Prophylaxis /Treatment TEDS Stockings on Every AM, Off at HS Progression Toward Outcome/Goals Progressing Discharge Planning - Improve/Maintain Start: 01/13/19 22:26 Freq: DAILY Status: Active Target: Protocol: Activity Type Activity Date Activity User E-Sign Co-Sign Detail Recorded Client Recorded Date Recorded By Document 01/17/19 00:21 [id number] 01/17/19 00:22 [id number] 01/17/19 00:21 PMRU Outcome: Discharge Planning Update Patient Family No Outcome/Goals Demonstrates Understanding of Discharge Plan Education-Improve/Maintain Start: 01/13/19 22:26 Freq: QSHIFT Status: Active Target: Protocol: Activity Type Activity Date Activity User E-Sign Co-Sign Detail Recorded Client Recorded Date Recorded By Document 01/17/19 08:00 [id number] [id number] 01/17/19 08:43 [id number] 01/17/19 08:00 PMRU Outcome: Education Outcome/Goals Demonstrate/ Verbalize Understanding of Written Discharge Instructions Demonstrates Skills Progression Toward Outcome/Goals Progressing Medication Administration Start: 01/13/19 22:26 Freq: QSHIFT Status: Active Target: Protocol: Activity Type Activity Date Activity User E-Sign Co-Sign Detail Recorded Client Recorded Date Recorded By Document 01/17/19 08:00 [id number] [id number] 01/17/19 08:43 [id number] 01/17/19 08:00 PMRU Outcome: Medication Administration Assess Patient Knowledge/Teach Med Yes Education for all Meds Outcome/Goals Patient Independent with Medication Administration at Home Progression Towards Outcome/Goals Progressing Is Patient Going Home on Lovenox? No Pain/Comfort- Improve/Maintain Start: 01/13/19 22:26 Freq: QSHIFT Status: Active Target: Protocol: Activity Type Activity Date Activity User E-Sign Co-Sign Detail Recorded Client Recorded Date Recorded By Document 01/17/19 08:00 [id number] [id number] 01/17/19 08:44 [id number] 01/17/19 08:00 PMRU Outcome: Pain/Comfort Outcome/Goals Demonstrates Knowledge and Use of Available Comfort Measures Achieves Acceptable Comfort/Pain Level as Determined by Patient/Condit Maintain Comfort Level Allowing Patient to Fully Participate in Rehab Progression Toward Outcome/Goals Progressing Outcome/Goals Met Comment pain medication provided as needed Respiratory - Improve/Maintain Start: 01/13/19 22:26 Freq: QSHIFT Status: Active Target: Protocol: Activity Type Activity Date Activity User E-Sign Co-Sign Detail Recorded Client Recorded Date Recorded By Document 01/17/19 08:00 [id number] [id number] 01/17/19 08:44 [id number] 01/17/19 08:00 PMRU Outcome: Respiratory Does Patient Have a Trach No Outcome/Goals Maintain/ Improve O2 Sat per MD Order Maintain/ Improve Activity Tolerance Prevent Pneumonia/ Atelectasis Remain Aspiration Free Progression Toward Outcome/Goals Progressing Outcome/Goals Met Comment 96% on room air Safety- Improve/Maintain Start: 01/13/19 22:26 Freq: QSHIFT Status: Active Target: Protocol: Activity Type Activity Date Activity User E-Sign Co-Sign Detail Recorded Client Recorded Date Recorded By Document 01/17/19 08:00 [id number] [email or web address] 01/17/19 08:44 [id number] 01/17/19 08:00 PMRU Outcome: Safety Outcome/Goals Remain Free of Injury or Harm Cooperates with Safety Measures for Least Restrictive Environment Progression Toward Outcome/Goals Progressing Outcome/Goals Met Comment PA/BA Skin- Improve/Maintain Start: 01/13/19 22:26 Freq: QSHIFT Status: Active Target: Protocol: Activity Type Activity Date Activity User E-Sign Co-Sign Detail Recorded Client Recorded Date Recorded By Document 01/17/19 08:00 [id number] [id number] 01/17/19 08:44 [id number] 01/17/19 08:00 PMRU Outcome: Skin Skin Risk Level Low Outcome/Goals Maintain/ Improve Skin Intergrity Free from Decubitus Progression Toward Outcome/Goals Progressing Medicine Note: Length of Stay: 3 days Anticipated Discharge Destination: Home Tentative Discharge Date: 01/20/19 Discharged to: Home
[2019-01-17] MEDS: Rivaroxaban TAB(*) 20 MG TAB PO SCH (17:51)
--- NOTE | 2019-01-17 18:48 | PN ---
Progress Note Date of Service: 01/17/19 Note: MINE PATEL was visited. Therapy notes read and reviewed. She was discussed in interdisciplinary team rounds. She feels like she is making gains with her pain control as well as her ability to sleep. Breathing better and is off O2. Refusing Spiriva Current Medications: Active Medications Generic Name Dose Route Start Last Admin Trade Name Freq PRN Reason Stop Dose Admin Acetaminophen 650 mg 01/13/19 15:33 Tylenol Tab* PO Q6H PRN FEVER/PAIN Albuterol 2.5 mg 01/13/19 15:42 01/13/19 16:56 Ventolin 2.5 Mg/3 Ml Neb.Rose* INH 2.5 mg Q4H PRN Administration SOB/WHEEZING Device 1 each 01/15/19 17:00 Tiotropium Inhaler Device* INH .USE w/ SPIRIVA CAPS ÁLVARO Docusate Sodium 100 mg 01/13/19 21:00 01/17/19 08:13 Colace Cap* PO Not Given BID ÁLVARO Dofetilide 250 mcg 01/13/19 21:00 01/17/19 09:22 Tikosyn Cap* PO 250 mcg BID ÁLVARO Administration Famotidine 20 mg 01/14/19 09:00 01/17/19 08:12 Pepcid Tab* PO 20 mg DAILY ÁLVARO Administration Furosemide 40 mg 01/14/19 09:00 01/17/19 08:12 Lasix Tab* PO 40 mg DAILY ÁLVARO Administration Guaifenesin 600 mg 01/15/19 21:00 01/17/19 08:11 Mucinex* PO 600 mg BID ÁLVARO Administration Heparin Sodium (Porcine) 1 ml 01/13/19 18:00 01/17/19 17:51 Heparin Flush Picc/Ml/Cvc(*) FLUSH 1 ml 0600,1800 ÁLVARO Administration Protocol Levothyroxine Sodium 75 mcg 01/14/19 06:00 01/17/19 05:40 Synthroid Tab* PO 75 mcg DAILY@0600 ÁLVARO Administration Lorazepam 0.5 mg 01/13/19 15:41 Ativan Tab(*) PO Q6H PRN ANXIETY Magnesium Hydroxide 30 ml 01/13/19 15:33 Milk Of Magnesia Liq* PO Q6H PRN CONSTIPATION Magnesium Oxide 400 mg 01/14/19 09:00 01/17/19 08:12 Magox 400 Tab* PO 400 mg DAILY ÁLVARO Administration Melatonin 3 mg 01/13/19 15:43 01/13/19 21:09 Melatonin PO 3 mg BEDTIME PRN Administration INSOMNIA Metoprolol Tartrate 25 mg 01/13/19 21:00 01/17/19 08:10 Lopressor Tab* PO 25 mg BID ÁLVARO Administration Oxycodone/Acetaminophen 1 tab 01/13/19 15:41 01/17/19 17:51 Percocet 5/325 Tab* PO 1 tab Q4H PRN Administration PAIN - MODERATE TO SEVERE Potassium Chloride 20 meq 01/14/19 09:00 01/17/19 08:10 Klor Con Er Tab* PO 20 meq DAILY ÁLVARO Administration Rivaroxaban 20 mg 01/13/19 18:00 01/17/19 17:51 Xarelto(*) PO 20 mg QPM ÁLVARO Administration Senna 2 tab 01/13/19 15:33 Senokot Tab* PO BEDTIME PRN CONSTIPATION Tiotropium [place] 1 cap 01/16/19 09:00 01/17/19 08:11 Spiriva Cap.Inh* INH 1 cap DAILY ÁLVARO Administration Vital Signs: Vital Signs Temp Pulse Resp BP Pulse Ox 98.2 F 79 18 127/83 100 01/17/19 16:08 01/17/19 16:08 01/17/19 17:51 01/17/19 16:08 01/17/19 16:08 Exam: HEENT: Alopecia LUNGS: Diminished BS at bases, scattered wheeze HEART: II/ systolic murmur ABDOMEN: Soft EXTREMITIES: LUE with lymphedema, bilat LE edema NEUROLOGIC: Decreased hand client coordinator and wrist ext RUE Assessment/Plan: 1. Fatigue from respiratory failure, MSSA pneumonia and sepsis: PT/OT 2. Breast Cancer: Treatment per oncology; onc note states no further chemo planned at this time 3. Hyponatremia: Check labs Wednesday 4. History of CHF/Aortic Stenosis: Lasix 5. Atrial fibrillation: Xarelto/Lopressor 6. Right brachial plexus lesion: Supportive care 7. Hypothyroidism: Synthroid 8. COPD: Spiriva/Albuterol 9. DVT Prophylaxis: Xarelto 10. Advance Directives: Full code; Brother is surrogate decision maker 01/17/19 18:48
[2019-01-18] MEDS: oxyCODONE/Acetamin 5/325 MG* TAB PO PRN ×4 (02:06→22:38)
[2019-01-18] MEDS: Levothyroxine TAB* 75 MCG TAB PO SCH (05:50)
[2019-01-18] MEDS: Dofetilide CAP* 250 MCG PO SCH ×2 (09:36→19:55)
[2019-01-18] MEDS: Potassium Chlor TAB* 20 MEQ TAB.ER PO SCH (09:37)
[2019-01-18] MEDS: Furosemide TAB* 20 MG PO SCH (09:37)
[2019-01-18] MEDS: guaiFENesin ER TAB 600 MG PO SCH ×2 (09:37→19:55)
[2019-01-18] MEDS: Famotidine TAB* 20 MG PO SCH (09:37)
[2019-01-18] MEDS: Magnesium Oxide TAB* 400 MG PO SCH (09:37)
[2019-01-18] MEDS: Metoprolol Tartrate TAB* 25 MG PO SCH ×2 (09:37→19:55)
[2019-01-18] MEDS: Tiotropium CAP.INH* CAP.INH/18 MCG (USE ORDER SET !) INH SCH (09:39)
[2019-01-18] MEDS: Docusate CAP* 100 MG PO SCH ×2 (09:47→19:55)
[2019-01-18] MEDS: Rivaroxaban TAB(*) 20 MG TAB PO SCH (17:45)
--- NOTE | 2019-01-18 18:41 | PN ---
Subjective Date of Service: 01/18/19 - CC: asked to evaluate Tikosyn dose for paroxysmal atrial fibrillation. Interval History: The patient was concerned about Tikosyn dose as TID on admission and BID now. Denies SOB, leg swelling and the patient had questions about diuretic dosing. Denies any significant orthopnea/LUKE. Medications Active Medications: Acetaminophen (Tylenol Tab*) 650 mg PO Q6H PRN PRN Reason: FEVER/PAIN Albuterol (Ventolin 2.5 Mg/3 Ml Neb.Rose*) 2.5 mg INH Q4H PRN PRN Reason: SOB/WHEEZING Last Admin: 01/13/19 16:56 Dose: 2.5 mg Device (Tiotropium Inhaler Device*) 1 each INH .USE w/ SPIRIVA CAPS [facility] Docusate Sodium (Colace Cap*) 100 mg PO BID [facility] Last Admin: 01/18/19 09:47 Dose: Not Given Dofetilide (Tikosyn Cap*) 250 mcg PO BID [facility] Last Admin: 01/18/19 09:36 Dose: 250 mcg Famotidine (Pepcid Tab*) 20 mg PO DAILY [facility] Last Admin: 01/18/19 09:37 Dose: 20 mg Furosemide (Lasix Tab*) 40 mg PO DAILY [facility] Last Admin: 01/18/19 09:37 Dose: 40 mg Guaifenesin (Mucinex*) 600 mg PO BID [facility] Last Admin: 01/18/19 09:37 Dose: 600 mg Heparin Sodium (Porcine) (Heparin Flush Picc/Ml/Cvc(*)) 1 ml FLUSH 0600,1800 [facility]; Protocol Last Admin: 01/18/19 17:48 Dose: 1 ml Levothyroxine Sodium (Synthroid Tab*) 75 mcg PO DAILY@0600 [facility] Last Admin: 01/18/19 05:50 Dose: 75 mcg Lorazepam (Ativan Tab(*)) 0.5 mg PO Q6H PRN PRN Reason: ANXIETY Magnesium Hydroxide (Milk Of Magnesia Liq*) 30 ml PO Q6H PRN PRN Reason: CONSTIPATION Magnesium Oxide (Magox 400 Tab*) 400 mg PO DAILY [facility] Last Admin: 01/18/19 09:37 Dose: 400 mg Melatonin (Melatonin) 3 mg PO BEDTIME PRN PRN Reason: INSOMNIA Last Admin: 01/13/19 21:09 Dose: 3 mg Metoprolol Tartrate (Lopressor Tab*) 25 mg PO BID [facility] Last Admin: 01/18/19 09:37 Dose: 25 mg Oxycodone/Acetaminophen (Percocet 5/325 Tab*) 1 tab PO Q4H PRN PRN Reason: PAIN - MODERATE TO SEVERE Last Admin: 01/18/19 14:34 Dose: 1 tab Potassium Chloride (Klor Con Er Tab*) 20 meq PO DAILY [facility] Last Admin: 01/18/19 09:37 Dose: 20 meq Rivaroxaban (Xarelto(*)) 20 mg PO QPM [facility] Last Admin: 01/18/19 17:45 Dose: 20 mg Senna (Senokot Tab*) 2 tab PO BEDTIME PRN PRN Reason: CONSTIPATION Tiotropium [place] (Spiriva Cap.Inh*) 1 cap INH DAILY [facility] Last Admin: 01/18/19 09:39 Dose: 1 cap Objective Vital Signs: Temp Pulse Resp BP Pulse Ox 98.3 F 83 18 121/80 100 01/18/19 15:53 01/18/19 15:53 01/18/19 17:13 01/18/19 15:53 01/18/19 17:05 Oxygen Devices in Use Now: None Appearance: Somewhat older female, appears chronically ill. Eyes: No Scleral Icterus, PERRLA Ears/Nose/Mouth/Throat: Mucous Membranes Moist, - - cap on (chemo). Neck: - - asymetrical musculature, no increase JVD Respiratory: - - crackles, sparse, diffuse. Cardiovascular: RRR - 3/6 late peakin murmur RUSB with radiation. Abdominal: NL Sounds; No Tenderness; No Distention Extremities: - - 2-3 + edema lower legs, LUE + lymphedema, MAL hypermia of the hand, atrophy hand. Skin: No Rash or Ulcers Neurological: - - vague historian, unable to process simple math, knows me well , follows commands. Laboratory Results: 01/16/19 05:09 01/16/19 05:09 Total Bilirubin 0.50 mg/dL (0.2-1.0) 01/16/19 05:09 AST 23 U/L (13-39) 01/16/19 05:09 ALT 18 U/L (7-52) 01/16/19 05:09 Alkaline Phosphatase 43 U/L (34-104) 01/16/19 05:09 Total Protein 6.8 g/dL (6.4-8.9) 01/16/19 05:09 Albumin 3.5 g/dL (3.2-5.2) 01/16/19 05:09 Globulin 3.3 g/dL (2-4) 01/16/19 05:09 Albumin/Globulin Ratio 1.1 (1-3) 01/16/19 05:09 EKG Data: 01/17/19: NSR, LBBB, QTc 509 ms (with wide QRS). Assessment/Plan 63 yo 31 years s/p HL and RT, currently being treated for Breast CA. In PMRU s/p complex admission with hyponatremia, afib, shock. Patient with PAF, dose increased at admission by Dr Mcmullen from 125 mcg TID to 250 mcg BID. ECG QT interval OK taking into account her LBBB. Continue Tikosyn at 250 mcg BID Continue with titration of diuretics balancing BP and fluid status, at risk for fluid overload from valvular disease, stiff heart, radiation injury.
--- NOTE | 2019-01-18 19:39 | PN ---
Progress Note Date of Service: 01/18/19 Note: MINE PATEL was visited. Therapy notes read and reviewed. Case was discussed with her aix administrator, Dr. Rose. She will go home on Lasix and her tikosyn, beta jairo. She is doing okay, remains off O2. Sleeping better. Current Medications: Active Medications Generic Name Dose Route Start Last Admin Trade Name Freq PRN Reason Stop Dose Admin Acetaminophen 650 mg 01/13/19 15:33 Tylenol Tab* PO Q6H PRN FEVER/PAIN Albuterol 2.5 mg 01/13/19 15:42 01/13/19 16:56 Ventolin 2.5 Mg/3 Ml Neb.Rose* INH 2.5 mg Q4H PRN Administration SOB/WHEEZING Device 1 each 01/15/19 17:00 Tiotropium Inhaler Device* INH .USE w/ SPIRIVA CAPS ÁLVARO Docusate Sodium 100 mg 01/13/19 21:00 01/18/19 09:47 Colace Cap* PO Not Given BID ÁLVARO Dofetilide 250 mcg 01/13/19 21:00 01/18/19 09:36 Tikosyn Cap* PO 250 mcg BID ÁLVARO Administration Famotidine 20 mg 01/14/19 09:00 01/18/19 09:37 Pepcid Tab* PO 20 mg DAILY ÁLVARO Administration Furosemide 40 mg 01/14/19 09:00 01/18/19 09:37 Lasix Tab* PO 40 mg DAILY ÁLVARO Administration Guaifenesin 600 mg 01/15/19 21:00 01/18/19 09:37 Mucinex* PO 600 mg BID ÁLVARO Administration Heparin Sodium (Porcine) 1 ml 01/13/19 18:00 01/18/19 17:48 Heparin Flush Picc/Ml/Cvc(*) FLUSH 1 ml 0600,1800 ÁLVARO Administration Protocol Levothyroxine Sodium 75 mcg 01/14/19 06:00 01/18/19 05:50 Synthroid Tab* PO 75 mcg DAILY@0600 ÁLVARO Administration Lorazepam 0.5 mg 01/13/19 15:41 Ativan Tab(*) PO Q6H PRN ANXIETY Magnesium Hydroxide 30 ml 01/13/19 15:33 Milk Of Magnesia Liq* PO Q6H PRN CONSTIPATION Magnesium Oxide 400 mg 01/14/19 09:00 01/18/19 09:37 Magox 400 Tab* PO 400 mg DAILY ÁLVARO Administration Melatonin 3 mg 01/13/19 15:43 01/13/19 21:09 Melatonin PO 3 mg BEDTIME PRN Administration INSOMNIA Metoprolol Tartrate 25 mg 01/13/19 21:00 01/18/19 09:37 Lopressor Tab* PO 25 mg BID ÁLVARO Administration Oxycodone/Acetaminophen 1 tab 01/13/19 15:41 01/18/19 18:40 Percocet 5/325 Tab* PO 1 tab Q4H PRN Administration PAIN - MODERATE TO SEVERE Potassium Chloride 20 meq 01/14/19 09:00 01/18/19 09:37 Klor Con Er Tab* PO 20 meq DAILY ÁLVARO Administration Rivaroxaban 20 mg 01/13/19 18:00 01/18/19 17:45 Xarelto(*) PO 20 mg QPM ÁLVARO Administration Senna 2 tab 01/13/19 15:33 Senokot Tab* PO BEDTIME PRN CONSTIPATION Tiotropium [place] 1 cap 01/16/19 09:00 01/18/19 09:39 Spiriva Cap.Inh* INH 1 cap DAILY ÁLVARO Administration Vital Signs: Vital Signs Temp Pulse Resp BP Pulse Ox 98.3 F 83 18 121/80 100 01/18/19 15:53 01/18/19 15:53 01/18/19 18:40 01/18/19 15:53 01/18/19 17:05 Exam: HEENT: Alopecia LUNGS: Diminished BS at bases, scattered wheeze HEART: II/ systolic murmur ABDOMEN: Soft EXTREMITIES: LUE with lymphedema, bilat LE edema NEUROLOGIC: Decreased hand slag worker and wrist ext RUE Assessment/Plan: 1. Fatigue from respiratory failure, MSSA pneumonia and sepsis: PT/OT 2. Breast Cancer: Treatment per oncology; onc note states no further chemo planned at this time 3. Hyponatremia: Check labs Wednesday 4. History of CHF/Aortic Stenosis: Lasix 5. Atrial fibrillation: Xarelto/Lopressor/Tikosyn 6. Right brachial plexus lesion: Supportive care 7. Hypothyroidism: Synthroid 8. COPD: Spiriva/Albuterol 9. DVT Prophylaxis: Xarelto 10. Advance Directives: Full code; Brother is surrogate decision maker 01/18/19 19:39
[2019-01-19] MEDS: oxyCODONE/Acetamin 5/325 MG* TAB PO PRN ×5 (02:29→22:03)
[2019-01-19] MEDS: Levothyroxine TAB* 75 MCG TAB PO SCH (04:48)
[2019-01-19] MEDS: LORazepam TAB(*) 0.5 MG PO PRN (05:09)
[2019-01-19] MEDS: Dofetilide CAP* 250 MCG PO SCH ×2 (08:31→20:02)
[2019-01-19] MEDS: Famotidine TAB* 20 MG PO SCH (08:31)
[2019-01-19] MEDS: Furosemide TAB* 20 MG PO SCH (08:31)
[2019-01-19] MEDS: Metoprolol Tartrate TAB* 25 MG PO SCH ×2 (08:32→20:02)
[2019-01-19] MEDS: guaiFENesin ER TAB 600 MG PO SCH ×2 (08:32→20:02)
[2019-01-19] MEDS: Potassium Chlor TAB* 20 MEQ TAB.ER PO SCH (08:32)
[2019-01-19] MEDS: Magnesium Oxide TAB* 400 MG PO SCH (08:32)
[2019-01-19] MEDS: Docusate CAP* 100 MG PO SCH ×2 (08:33→20:01)
[2019-01-19] MEDS: Tiotropium CAP.INH* CAP.INH/18 MCG (USE ORDER SET !) INH SCH (14:03)
[2019-01-19] MEDS: Rivaroxaban TAB(*) 20 MG TAB PO SCH (17:01)
--- NOTE | 2019-01-19 20:55 | PN ---
Progress Note Date of Service: 01/19/19 Note: MINE PATEL was visited. Therapy notes read and reviewed. She is moving quite well and breathing well. She is still bringing up phlegm Current Medications: Active Medications Generic Name Dose Route Start Last Admin Trade Name Freq PRN Reason Stop Dose Admin Acetaminophen 650 mg 01/13/19 15:33 Tylenol Tab* PO Q6H PRN FEVER/PAIN Albuterol 2.5 mg 01/13/19 15:42 01/13/19 16:56 Ventolin 2.5 Mg/3 Ml Neb.Rose* INH 2.5 mg Q4H PRN Administration SOB/WHEEZING Device 1 each 01/15/19 17:00 Tiotropium Inhaler Device* INH .USE w/ SPIRIVA CAPS ÁLVARO Docusate Sodium 100 mg 01/13/19 21:00 01/19/19 20:01 Colace Cap* PO Not Given BID ÁLVARO Dofetilide 250 mcg 01/13/19 21:00 01/19/19 20:02 Tikosyn Cap* PO 250 mcg BID ÁLVARO Administration Famotidine 20 mg 01/14/19 09:00 01/19/19 08:31 Pepcid Tab* PO 20 mg DAILY ÁLVARO Administration Furosemide 40 mg 01/14/19 09:00 01/19/19 08:31 Lasix Tab* PO 40 mg DAILY ÁLVARO Administration Guaifenesin 600 mg 01/15/19 21:00 01/19/19 20:02 Mucinex* PO 600 mg BID ÁLVARO Administration Heparin Sodium (Porcine) 1 ml 01/13/19 18:00 01/19/19 17:56 Heparin Flush Picc/Ml/Cvc(*) FLUSH 1 ml 0600,1800 ÁLVARO Administration Protocol Levothyroxine Sodium 75 mcg 01/14/19 06:00 01/19/19 04:48 Synthroid Tab* PO 75 mcg DAILY@0600 ÁLVARO Administration Lorazepam 0.5 mg 01/13/19 15:41 01/19/19 05:09 Ativan Tab(*) PO 0.5 mg Q6H PRN Administration ANXIETY Magnesium Hydroxide 30 ml 01/13/19 15:33 Milk Of Magnesia Liq* PO Q6H PRN CONSTIPATION Magnesium Oxide 400 mg 01/14/19 09:00 01/19/19 08:32 Magox 400 Tab* PO 400 mg DAILY ÁLVARO Administration Melatonin 3 mg 01/13/19 15:43 01/13/19 21:09 Melatonin PO 3 mg BEDTIME PRN Administration INSOMNIA Metoprolol Tartrate 25 mg 01/13/19 21:00 01/19/19 20:02 Lopressor Tab* PO 25 mg BID ÁLVARO Administration Oxycodone/Acetaminophen 1 tab 01/13/19 15:41 01/19/19 17:00 Percocet 5/325 Tab* PO 1 tab Q4H PRN Administration PAIN - MODERATE TO SEVERE Potassium Chloride 20 meq 01/14/19 09:00 01/19/19 08:32 Klor Con Er Tab* PO 20 meq DAILY ÁLVARO Administration Rivaroxaban 20 mg 01/13/19 18:00 01/19/19 17:01 Xarelto(*) PO 20 mg QPM ÁLVARO Administration Senna 2 tab 01/13/19 15:33 Senokot Tab* PO BEDTIME PRN CONSTIPATION Tiotropium [place] 1 cap 01/16/19 09:00 01/19/19 14:03 Spiriva Cap.Inh* INH 1 cap DAILY ÁLVARO Administration Vital Signs: Vital Signs Temp Pulse Resp BP Pulse Ox 98.1 F 83 18 124/61 100 01/19/19 16:59 01/19/19 16:59 01/19/19 20:03 01/19/19 16:59 01/19/19 16:59 Exam: HEENT: Alopecia LUNGS: Diminished BS at bases, scattered wheeze HEART: II/ systolic murmur ABDOMEN: Soft EXTREMITIES: LUE with lymphedema, bilat LE edema NEUROLOGIC: Decreased hand silk soaker and wrist ext RUE Assessment/Plan: 1. Fatigue from respiratory failure, MSSA pneumonia and sepsis: PT/OT 2. Breast Cancer: Treatment per oncology; onc note states no further chemo planned at this time 3. Hyponatremia: Check labs Wednesday 4. History of CHF/Aortic Stenosis: Lasix 5. Atrial fibrillation: Xarelto/Lopressor/Tikosyn 6. Right brachial plexus lesion: Supportive care 7. Hypothyroidism: Synthroid 8. COPD: Spiriva/Albuterol 9. DVT Prophylaxis: Xarelto 10. Advance Directives: Full code; Brother is surrogate decision maker 01/19/19 20:55
[2019-01-20] MEDS: oxyCODONE/Acetamin 5/325 MG* TAB PO PRN ×5 (03:20→23:19)
[2019-01-20] MEDS: Levothyroxine TAB* 75 MCG TAB PO SCH (05:42)
[2019-01-20 06:24] LABS: Albumin 3.3 g/dL (3.2-5.2); Albumin/Globulin Ratio 1.1 (1-3); BUN/Creatinine Ratio 30.3 (8-20); Calcium 8.9 mg/dL (8.6-10.3); EGFR African American 109.8 (>60); EGFR Non-African American 90.7 (>60); Globulin 3.1 g/dL (2-4); Potassium 4.1 mmol/L (3.5-5.0); Total Bilirubin 0.5 mg/dL (0.2-1.0); Total Protein 6.4 g/dL (6.4-8.9)
[2019-01-20] MEDS: Furosemide TAB* 20 MG PO SCH (08:44)
[2019-01-20] MEDS: Famotidine TAB* 20 MG PO SCH (08:44)
[2019-01-20] MEDS: Tiotropium CAP.INH* CAP.INH/18 MCG (USE ORDER SET !) INH SCH (08:44)
[2019-01-20] MEDS: Magnesium Oxide TAB* 400 MG PO SCH (08:44)
[2019-01-20] MEDS: guaiFENesin ER TAB 600 MG PO SCH ×2 (08:44→20:57)
[2019-01-20] MEDS: Dofetilide CAP* 250 MCG PO SCH ×2 (08:45→20:57)
[2019-01-20] MEDS: Metoprolol Tartrate TAB* 25 MG PO SCH ×2 (08:45→20:57)
[2019-01-20] MEDS: Docusate CAP* 100 MG PO SCH ×2 (08:45→20:10)
[2019-01-20] MEDS: Potassium Chlor TAB* 20 MEQ TAB.ER PO SCH (08:45)
[2019-01-20] MEDS: Rivaroxaban TAB(*) 20 MG TAB PO SCH (18:09)
--- NOTE | 2019-01-20 20:13 | PN ---
Progress Note Date of Service: 01/20/19 Note: MINE PATEL was visited. Therapy notes read and reviewed. For discharge tomorrow. She is doing well and feels ready for discharge Current Medications: Active Medications Generic Name Dose Route Start Last Admin Trade Name Freq PRN Reason Stop Dose Admin Acetaminophen 650 mg 01/13/19 15:33 Tylenol Tab* PO Q6H PRN FEVER/PAIN Albuterol 2.5 mg 01/13/19 15:42 01/13/19 16:56 Ventolin 2.5 Mg/3 Ml Neb.Rose* INH 2.5 mg Q4H PRN Administration SOB/WHEEZING Device 1 each 01/15/19 17:00 Tiotropium Inhaler Device* INH .USE w/ SPIRIVA CAPS ÁLVARO Docusate Sodium 100 mg 01/13/19 21:00 01/20/19 20:10 Colace Cap* PO Not Given BID ÁLVARO Dofetilide 250 mcg 01/13/19 21:00 01/20/19 08:45 Tikosyn Cap* PO 250 mcg BID ÁLVARO Administration Famotidine 20 mg 01/14/19 09:00 01/20/19 08:44 Pepcid Tab* PO 20 mg DAILY ÁLVARO Administration Furosemide 40 mg 01/14/19 09:00 01/20/19 08:44 Lasix Tab* PO 40 mg DAILY ÁLVARO Administration Guaifenesin 600 mg 01/15/19 21:00 01/20/19 08:44 Mucinex* PO 600 mg BID ÁLVARO Administration Heparin Sodium (Porcine) 1 ml 01/13/19 18:00 01/20/19 18:18 Heparin Flush Picc/Ml/Cvc(*) FLUSH Not Given 0600,1800 [facility] Protocol Levothyroxine Sodium 75 mcg 01/14/19 06:00 01/20/19 05:42 Synthroid Tab* PO 75 mcg DAILY@0600 ÁLVARO Administration Lorazepam 0.5 mg 01/13/19 15:41 01/19/19 05:09 Ativan Tab(*) PO 0.5 mg Q6H PRN Administration ANXIETY Magnesium Hydroxide 30 ml 01/13/19 15:33 Milk Of Magnesia Liq* PO Q6H PRN CONSTIPATION Magnesium Oxide 400 mg 01/14/19 09:00 01/20/19 08:44 Magox 400 Tab* PO 400 mg DAILY ÁLVARO Administration Melatonin 3 mg 01/13/19 15:43 01/13/19 21:09 Melatonin PO 3 mg BEDTIME PRN Administration INSOMNIA Metoprolol Tartrate 25 mg 01/13/19 21:00 01/20/19 08:45 Lopressor Tab* PO 25 mg BID ÁLVARO Administration Oxycodone/Acetaminophen 1 tab 01/13/19 15:41 01/20/19 19:01 Percocet 5/325 Tab* PO 1 tab Q4H PRN Administration PAIN - MODERATE TO SEVERE Potassium Chloride 20 meq 01/14/19 09:00 01/20/19 08:45 Klor Con Er Tab* PO 20 meq DAILY ÁLVARO Administration Rivaroxaban 20 mg 01/13/19 18:00 01/20/19 18:09 Xarelto(*) PO 20 mg QPM ÁLVARO Administration Senna 2 tab 01/13/19 15:33 Senokot Tab* PO BEDTIME PRN CONSTIPATION Tiotropium [place] 1 cap 01/16/19 09:00 01/20/19 08:44 Spiriva Cap.Inh* INH Not Given DAILY ÁLVARO Vital Signs: Vital Signs Temp Pulse Resp BP Pulse Ox 98.1 F 84 18 120/65 97 01/20/19 16:22 01/20/19 16:22 01/20/19 19:19 01/20/19 16:22 01/20/19 17:16 Lab Results: Laboratory Results - last 24 hr 01/20/19 05:20 Sodium 136 Potassium 4.1 Chloride 98 L Carbon Dioxide 34 H Anion Gap 4 BUN 20 Creatinine 0.66 Est GFR ( Amer) 109.8 Est GFR (Non-Af Amer) 90.7 BUN/Creatinine Ratio 30.3 H Glucose 119 H Calcium 8.9 Total Bilirubin 0.50 AST 19 ALT 15 Alkaline Phosphatase 38 Total Protein 6.4 Albumin 3.3 Globulin 3.1 Albumin/Globulin Ratio 1.1 Exam: HEENT: Alopecia LUNGS: Diminished BS at bases, scattered wheeze HEART: II/ systolic murmur ABDOMEN: Soft EXTREMITIES: LUE with lymphedema, bilat LE edema NEUROLOGIC: Decreased hand wafer polisher and wrist ext RUE Assessment/Plan: 1. Fatigue from respiratory failure, MSSA pneumonia and sepsis: PT/OT 2. Breast Cancer: Treatment per oncology; onc note states no further chemo planned at this time 3. Hyponatremia: Check labs Wednesday 4. History of CHF/Aortic Stenosis: Lasix 5. Atrial fibrillation: Xarelto/Lopressor/Tikosyn 6. Right brachial plexus lesion: Supportive care 7. Hypothyroidism: Synthroid 8. COPD: Spiriva/Albuterol 9. DVT Prophylaxis: Xarelto 10. Advance Directives: Full code; Brother is surrogate decision maker 01/20/19 20:13
[2019-01-21] MEDS: LORazepam TAB(*) 0.5 MG PO PRN (02:30)
[2019-01-21] MEDS: Levothyroxine TAB* 75 MCG TAB PO SCH (06:00)
[2019-01-21 06:09] VITALS: BP 123/67
[2019-01-21] MEDS: Tiotropium CAP.INH* CAP.INH/18 MCG (USE ORDER SET !) INH SCH (07:47)
[2019-01-21] MEDS: oxyCODONE/Acetamin 5/325 MG* TAB PO PRN ×2 (08:50→13:23)
[2019-01-21] MEDS: Furosemide TAB* 20 MG PO SCH (08:53)
[2019-01-21] MEDS: Dofetilide CAP* 250 MCG PO SCH (08:53)
[2019-01-21] MEDS: Famotidine TAB* 20 MG PO SCH (08:54)
[2019-01-21] MEDS: Metoprolol Tartrate TAB* 25 MG PO SCH (08:54)
[2019-01-21] MEDS: guaiFENesin ER TAB 600 MG PO SCH (08:55)
[2019-01-21] MEDS: Magnesium Oxide TAB* 400 MG PO SCH (08:55)
[2019-01-21] MEDS: Potassium Chlor TAB* 20 MEQ TAB.ER PO SCH (08:55)
[2019-01-21] MEDS: Docusate CAP* 100 MG PO SCH (08:56)
--- NOTE | 2019-01-21 15:46 | DS ---
CC: Dr. Janice Lay MD; Dr. Philip Chirinos * DISCHARGE SUMMARY: DATE OF ADMISSION: 01/13/19 DATE OF DISCHARGE: 01/21/19 PRIMARY CARE DOCTOR: Dr. Philip Chirinos. DISCHARGE DIAGNOSES: 1. Left breast cancer. 2. Hyponatremia. 3. Methicillin-sensitive Staphylococcus aureus pneumonia. 4. Respiratory failure. 5. Neutropenia secondary to chemotherapy. 6. Aortic stenosis. 7. Atrial fibrillation. 8. Chronic obstructive pulmonary disease. 9. Right branchial plexopathy. 10. Lymphedema, left arm. HISTORY OF ILLNESS AND HOSPITAL COURSE: For complete history of the events leading up to her rehab stay, please see the history and physical dictated by me on 01/13/19. While on the rehab unit, the patient's sodium level remained stable in the 136 range. It was checked on 01/16/19 and 01/20/19. The patient' s blood counts were also within normal limits on 01/16/19. She seemed to be doing okay. She was able to be weaned off oxygen while on the rehab unit. She was started on Spiriva for her COPD. The patient did appear to have a vocal cord paralysis and will have to have an ENT followup as an outpatient. She had a hoarse raspy voice noted. The patient was anticoagulated with Xarelto for her atrial fibrillation. She was diuresed for her aortic stenosis. She had a followup with Dr. Milena Rose regarding her Tikosyn dose to go home with. Dr. Rose felt she could go home on 250 mg twice a day. The patient otherwise was medically stable. She was seen by both physical and occupational therapy and made good gains with both disciplines. With physical therapy, at the time of admission, the patient required contact guard for transfers, contact guard to ambulate about a 100 feet with occupational therapy at the time of admission. The patient was supervision for upper body dressing, mini assist for lower body dressing, mini assist for bathing, contact guard for toileting, contact guard for toilet transfers. By the time of discharge, the patient was independent in transfers, independent in ambulating. She was able to ambulate over a 1000 feet with no assistive devices. She was independent in dressing, independent in bathing, independent in toileting, independent in toilet transfers. The patient was discharged home on 01/21/19. CONDITION AT DISCHARGE: The patient was discharged in stable condition. DISCHARGE DIET: Regular. DISCHARGE MEDICATIONS: 1. Tikosyn 250 mg twice a day. 2. Spiriva 1 capsule via HandiHaler device daily. 3. Torsemide 20 mg daily. 4. Synthroid 75 mcg orally daily. 5. Klonopin 0.5 mg twice a day as needed for anxiety. 6. Magnesium oxide 400 mg daily. 7. Lopressor 25 mg orally twice daily. 8. Klor-Con 20 mEq orally daily. 9. Percocet 1 tablet every 4 hours as needed. 10. Xarelto 20 mg daily. SERVICES AFTER DISCHARGE: The patient with visiting nurse service, will have home nursing, home physical therapy and home health aide. She also has aides through [facility]. TIME SPENT: Time for this discharge was approximately 50 minutes, greater than half of that was spent with the patient and her [id number] discussing post- rehabilitation therapies, medications, and followup. [id number]/CPS #: [id number] SHRAVAN
== END 2019-01-21 16:26 | disposition home health service (06) | DRG 860 ==
LOC: PMRU 14:27
PROVIDERS: ADMIT Physical Medicine & Rehabilitation; ATTEND Physical Medicine & Rehabilitation
PROC: F07Z5ZZ Bed Mobility Treatment (ICD-10-PCS; principal; 2019-01-13)
PROC: F07Z9ZZ Gait Training/Functional Ambulation Treatment (ICD-10-PCS; 2019-01-13)
PROC: F07Z8ZZ Transfer Training Treatment (ICD-10-PCS; 2019-01-13)
PROC: F08Z0ZZ Bathing/Showering Techniques Treatment (ICD-10-PCS; 2019-01-13)
PROC: F08Z1ZZ Dressing Techniques Treatment (ICD-10-PCS; 2019-01-13)
PROC: F08Z3ZZ Feeding/Eating Treatment (ICD-10-PCS; 2019-01-13)
DX: R53.1 Weakness (principal); E87.1 Hypo-osmolality and hyponatremia; D70.1 Agranulocytosis secondary to cancer chemotherapy; I27.20 Pulmonary hypertension, unspecified; I50.9 Heart failure, unspecified; G54.0 Brachial plexus disorders; C50.912 Malignant neoplasm of unspecified site of left female breast; J44.9 Chronic obstructive pulmonary disease, unspecified; E03.9 Hypothyroidism, unspecified; R53.83 Other fatigue; R53.81 Other malaise; I48.0 Paroxysmal atrial fibrillation; I25.10 Atherosclerotic heart disease of native coronary artery without angina pectoris; I97.2 Postmastectomy lymphedema syndrome; L65.8 Other specified nonscarring hair loss; I35.0 Nonrheumatic aortic (valve) stenosis; T45.1X5D Adverse effect of antineoplastic and immunosuppressive drugs, subsequent encounter; Z79.01 Long term (current) use of anticoagulants; Z79.51 Long term (current) use of inhaled steroids; Z79.899 Other long term (current) drug therapy; Z88.1 Allergy status to other antibiotic agents; Z88.0 Allergy status to penicillin; Z88.8 Allergy status to other drugs, medicaments and biological substances
CPT/HCPCS: 36415; 80053; 85025; 93005; 94640; A9270-GY

== ENCOUNTER 2019-02-17 22:20 | Emergency (ER) | payer OTHER ==
--- OUTSIDE RECORDS SUMMARY | 2019-02-17 22:48 | XMS REPORT | Continuity of Care Document ---
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 Onset: 09/20/2018 Sinus node dysfunction Milena Rose M.D. Onset: 11/04/2018 Chronic diastolic heart failure Milena Rose M.D. Onset: 11/04/2018 Family History Date Family Member(s) Observation Comments General [place] Father Smoker Father due to Cancer () [...] Medications SIG Qnty Indications Ordering Date Provider Dofetilide take one tablet by 180caps Milena Rose, 12/26/2018 250mcg mouth twice daily. M.DJudi Capsules Miconazole Nitrate apply as directed 60gm Kenan Carter 11/22/2018 2% Bucky Nguyen Cream Nystatin apply as directed 1units Kacy Moody 09/23/2018 Powder to affected area MD Ant bid Oxycodone HCL 1 tabs by mouth Unknown [...] a day 108(90Base) mcg/Act as needed Aerosol Barron 3-6-9 1 cap po once Unknown 1200mg [...] twice a 30units Kacy Cain, 09/23/2018 - [id number]/GM day to the skin Unknown Cream around the wound as needed Oxycodone-Acetaminoph 1 tab by mouth 8tabs Ann Marie B. 09/23/2018 - en every 6 hours as VIVIAN Vu Unknown 5-325mg Tablets needed for pain Dofetilide 1 tab by mouth 270caps Milena Rose, 05/03/2018 - 125mcg 3xs a day M.D. 01/25/2019 Capsules Atenolol 1 tablet by mouth 180tabs I34.0 Milena Stewardsher, 01/17/2018 - 50mg Tablets bid M.D. 03/31/2018 Sotalol HCL (AF) 1/2 tab by [...] qd 90tabs Unknown - 0.125mg Tablets 06/16/2013 Barron Q Plus Unknown - 05/23/2014 Resveratrol 1 cap po qd pm Unknown - Cap (100mg) 11/03/2018 Alive Womens 50+ 2 tab po qd Unknown - 10/19/2016 Tablets Metoprolol Tartrate 1 po bid 180tabs I34.0 Unknown - 01/17/2018 50mg Tablets Amitriptyline HCL 1/4 tab po qhs 60tabs Unknown - 10mg 12/12/2014 Tablets Nystatin topically bid prn 15g Nikolai Chirinos, - 239333Hcjy/JULIO TORRE 05/25/2018 Cream Clindamycin HCL 1 tabs PO [...] Mass Index) 23.3 kg/m2 Last Menstrual Period [id number] 07/25/2018 2:18pm Height 65.5 inches 5'5.50" Weight [...] H/L Range Note CBC Auto Diff 12/21/2018 [facility] White Blood 8.6 10^3/uL N 3.5-10.[address] [place] [address] [phone] Red Blood Count 5.25 10^6/uL High 3.70-4.87 [...] Cells % 0.1 Comp Metabolic Panel 12/21/2018 [facility] Sodium 133 mmol/L Low 135-145 [address] [place] [address] [phone] Potassium 4.6 mmol/L N 3.5-5.0 Chloride 94 [...] 89.2 >60 1 Basic Metabolic Panel 11/17/2018 [facility] Sodium 137 mmol/L N 135-145 [address] [place] [address] [phone] Potassium 4.6 mmol/L N 3.5-5.0 Chloride 96 mmol/L Low 101-111 Co2 Carbon Dioxide 33 mmol/L High 22-32 Anion Gap 8 mmol/L N 2-11 Glucose 138 mg/dL High 70-100 Blood Urea Nitrogen 34 mg/dL High 6-24 Creatinine 0.96 mg/dL High 0.51-0.95 BUN/Creatinine Ratio 35.4 High 8-20 Calcium 9.9 mg/dL N 8.6-10.3 Egfr Non- 58.9 >60 Egfr 71.3 >60 2 Laboratory test 11/17/2018 [facility] Magnesium 2.3 mg/dL N 1.9-2.7 [address] [place] [address] [phone] CBC Auto Diff 09/23/2018 [facility] White Blood 6.2 N 3.5- 10.[address] Count 10^3/[place] [address] [phone] Red Blood Count 4.62 10^6/uL N 3.70-4.87 [...] Blood Cells % 0.1 Basic Metabolic 09/23/2018 [facility] Sodium 133 mmol/L Low 135-[address] [place] [address] [phone] Potassium 4.5 mmol/L N 3.5-5.0 Chloride 95 mmol/L Low 101-111 Co2 Carbon Dioxide 32 mmol/L N 22-32 Anion Gap 6 mmol/L N 2-11 Glucose 107 mg/dL High 70-100 Blood Urea Nitrogen 31 mg/dL High 6-24 Creatinine 0.83 mg/dL N 0.51-0.95 BUN/Creatinine Ratio 37.3 High 8-20 Calcium 9.8 mg/dL N 8.6-10.3 Egfr Non- 69.9 >60 Egfr 84.6 >60 4 Type & Screen 09/23/2018 [facility] Patient Blood Type B Positive [address] [place] [address] [phone] Antibody Screen NEGATIVE Comp Metabolic Panel 08/30/2018 [facility] Sodium 132 mmol/L Low 135-[address] [place] [address] [phone] Potassium 4.4 mmol/L N 3.5-5.0 Chloride 95 [...] 90.9 >60 5 CBC Auto Diff 08/30/2018 [facility] White Blood 7.8 10^3/uL N 3.5-10.[address] [place] [address] [phone] Red Blood Count 4.63 10^6/uL N 4.00-5.40 [...] Blood Cells % 0 Laboratory test 08/25/2018 [facility] Surgical SEE RESULT [address] [place] [address] [phone] Laboratory test 08/25/2018 [facility] Cytology SEE RESULT [address] [place] [address] [phone] Comp Metabolic 07/27/2018 [facility] Sodium 135 mmol/L N 135- [address] [place] [address] [phone] Potassium 4.1 mmol/L N 3.5-5.0 Chloride 94 [...] Egfr 90.9 >60 8 Basic Metabolic 05/26/2018 [facility] Sodium 133 mmol/L Low 135-145 Panel [address] [place] [address] [phone] Potassium 4.2 mmol/L N 3.5-5.0 Chloride 89 mmol/L Low 101-111 Co2 Carbon Dioxide 36 mmol/L High 22-32 Anion Gap 8 mmol/L N 2-11 Glucose 147 mg/dL High 70-100 Blood Urea Nitrogen 21 mg/dL N 6-24 Creatinine 0.70 mg/dL N 0.51-0.95 BUN/Creatinine Ratio 30.0 High 8-20 Calcium 9.3 mg/dL N 8.6-10.3 Egfr Non- 85.1 >60 Egfr 102.9 >60 9 Laboratory test 05/26/2018 [facility] Magnesium 2.1 mg/dL N 1.9-2.7 finding [address] [place] [address] [phone] Laboratory 05/18/2018 N2N/CCD Import Absolute 0.1 10^3/ul [...] Import Urine Specific 1.005 Low 1.010- Studies [place] 1.030 Urine pH 6.0 5-9 Laboratory 05/09/2018 [...] Level 4.9 mmol/L 3.5-5.0 Basic Metabolic 04/06/2013 [facility] Sodium 137 mmol/L 133- 145 Panel [address] [place] [address] [phone] Potassium 4.6 mmol/L 3.5-5.0 Chloride 98 mmol/L Low 101-111 Co2 Carbon Dioxide 29.0 mmol/L 22-32 Anion Gap 10.0 mmol/L 2-11 Glucose 111 mg/dL High 70-100 Blood Urea Nitrogen 11 mg/dL 6-24 Creatinine 0.80 mg/dL 0.50-1.40 BUN/Creatinine Ratio 13.8 8-20 Calcium 8.9 mg/dL 8.1-9.9 Egfr Non- 74.2 >60 Egfr 95.4 >60 10 Laboratory test 04/06/2013 [facility] Digoxin 0.7 ng/mL 0.5- 1.5 11 finding [address] [place] [address] [phone] Acid Fast 01/21/2012 [facility] [address] [place] [address] ------ [place] [address] <SEE NOTE> [phone] Acid Fast 01/21/2012 [facility] [address] [facility] Hospitalist [facility] ------ [place] [address] <SEE NOTE> [phone] Acid Fast 01/21/2012 [facility] [address] [place] [address] ------ [place] [address] <SEE NOTE> [phone] MRSA/Vre Screen 12/09/2010 [facility] MRSA/Vre [facility]ICU [address] [place] [address] [phone] MRSA/Vre Screen 11/08/2010 [facility] MRSA/Vre [facility]ICU [address] Culture [place], [place] [address] [phone] Cytology Non-Leasing Coordinator 11/07/2010 [facility] Cytology Non [address] Leasing Coordinator ------ [place] [address] <SEE NOTE> [phone] Cytology Non-Leasing Coordinator 12/27/2009 [facility] Cytology Non [address] Leasing Coordinator ------ [place] [address] <SEE NOTE> [phone] Pleural Fluid 12/27/2009 [facility] Pleural Fluid CLOUDY,RED Cell Count [address] [place] [address] [phone] Pleural Fluid Volume 3.0 Pleural Fluid WBC 2300 Pleural Fluid RBC 604[address] Pleural Fluid Polys 7 Pleural Fluid Lymph 86 Pleural Fluid [place] 1 Pleural Fluid Non Hemo 6 Pleural Fluid Comments (SEE NOTE) 19 Body Fluid 12/27/2009 [facility] Body Fluid NG4 [address] [place] [address] [phone] Body Fluid C&S 12/27/2009 [facility] Body Fluid NO ORGANISMS SEE [address] Smear <SEE NOTE> [place] [address] [phone] 1 Because ethnic data is not always [...] 5 Kidney failure <15 (or dialysis) 3 May Copy Result to: NIKOLAI CHIRINOS ([id number]) 4 Because ethnic data is not always [...] [address]: Raffy Hernandez MD Acct: [id number] Unit: [id number] AGE: 62 Location: [facility] Re08/25/18 SEX: F Status: REG REF SPEC: [id number] ZAYNAB: 08/25/18 [facility] DR: Raffy Hernandez MD REQ: [id number] RECD: 08/25/18 STATUS: SOUT _ ORDERED: LEVEL 4 COMMENTS: [id number] FINAL DIAGNOSIS Uterus, endometrium, curettage: -- Benign [...] 1122 END OF REPORT DEPARTMENT OF PATHOLOGY, [address] [place] [address] Jaspreet Valverde M.D. Director [facility] # [id number] 7 SEE RESULT BELOW Name: KALLIE PATEL : [address]: Raffy Hernandez MD Acct: [id number] Unit: [id number] AGE: 62 Location: [facility] Re08/25/18 SEX: F Status: REG REF SPEC: [id number] ZAYNAB: 08/25/[address]: Raffy Hernandez MD REQ: [id number] RECD: 08/25/18 STATUS: SOUT _ ORDERED: TP IMAGE ANALYS, HPV/Thin Prep COMMENTS: [id number] Negative for Intraepithelial lesion or Malignancy Date Time Test Result Flag (u) Normal Range 08/25/18 5999 @ HPV RNA Negative Negative @ @ [...] by and Reported on: THONY Jones (ASCP) [id number] This Pap test was evaluated with the assistance of the ThinPrep Test Imaging System. Due to cytologic findings at the doctor of medicine microscope, comprehensive manual rescreening by a Groundwater Monitoring Technician may be required. The Pap Smear is [...] years. END OF REPORT DEPARTMENT OF PATHOLOGY, [address] [place] [address] Jaspreet Valverde M.D. Director [facility] # [id number] 8 Because ethnic data is not always [...] for rate control. 12 RUN DATE: 02/23/12 [facility] NMI LIVE PAGE 1 RUN TIME: 936 Specimen Inquiry RUN USER: INTERFACE Name: KALLIE PATEL Status: DIS IN Re01/18/12 Age/Sex: 56/F Unit#: [id number] Location: [facility]. : [birth year] SPEC #: [id number] ZAYNAB: 01/21/12 STATUS: RES REQ #: [id number] RECD: 01/21/12 [facility] DR: Ferrer MD,Lucy Davis SOURCE: BODY FLUID ENTR: 01/21/[address] [facility] [address]: Lang TORRE, Whitney Wooten SPDESC: PLEURAL FL Sera TORRE,Daisha ORDERED: ACID FAST CULT Procedure Result Verified Site > ACID FAST CULTURE Preliminary 02/23/12- 936 ML Culture, Mycobacterium No growth after 30 days Test performed by: [facility] [address] [place] [address] [facility] Permit #[id number] [address] [place], [place] [id number] DEPARTMENT OF PATHOLOGY, [address] [place] [address] [facility] Permit #[id number] Bucky Aguilar M.D. Cryogenics Repairer 13 RUN DATE: 03/09/12 [facility] NMI LIVE PAGE 1 RUN TIME: 931 Specimen Inquiry RUN USER: INTERFACE Name: KALLIE PATEL Status: DIS IN Re01/18/12 Age/Sex: 56/F Unit#: [id number] Location: [facility] : 57 SPEC #: [id number] ZAYNAB: 01/21/12 STATUS: RES REQ #: [id number] RECD: 01/21/12 [facility] DR: Ferrer MD,Lucy Davis SOURCE: BODY FLUID ENTR: 01/21/[address] [facility] [address]: Lang TORRE, Whitney Wooten SPDESC: PLEURAL FL Sera TORRE,Daisha ORDERED: ACID FAST CULT Procedure Result Verified Site > ACID FAST CULTURE Preliminary 03/09/12- 931 ML Culture, Mycobacterium No growth after 45 days Test performed by: [facility] MD [address] [place], [place] [address] - [facility] Permit #[id number] [address] [place] [address] DEPARTMENT OF PATHOLOGY, [address] [place] [address] [facility] Permit #[id number] Bucky Aguilar M.D. Cryogenics Repairer 14 RUN DATE: 03/24/12 [facility] NMI LIVE PAGE 1 RUN TIME: 1211 Specimen Inquiry RUN USER: INTERFACE Name: KALILE PATEL Status: DIS IN Re01/18/12 Age/Sex: 56/F Unit#: [id number] Location: [facility] : 57 SPEC #: [id number] ZAYNAB: 01/21/12 STATUS: AMMON REQ #: [id number] RECD: 01/21/12 [facility] DR: Ferrer MD,Lucy Davis SOURCE: BODY FLUID ENTR: 01/21/[address]: Lang TORRE, Whitney [place] [facility]: PLEURAL FL Sera TORRE,Daisha ORDERED: ACID FAST CULT Procedure Result Verified Site > ACID FAST CULTURE Final 03/24/12- 1211 ML Culture, Mycobacterium No growth after 60 days of incubation. Test performed by: [place] [address] [place], [place] [address] [facility] Permit #[id number] [facility] [place] [address] DEPARTMENT OF PATHOLOGY, [address] [place], [place] [address] [facility] Permit #[id number] Jaspreet Valverde M.D. Director Ankita Dias M.D. Cryogenics Repairer 15 NO MRSA ISOLATED 16 NO MRSA ISOLATED 17 ---- RUN DATE: 11/12/10 [facility] NMI LIVE PAGE 1 RUN TIME: 1151 Specimen Inquiry RUN USER: INTERFACE -- Name: KALLIE PATEL Status: DIS IN Re11/08/10 Age/Sex: 55/F Unit#: [id number] Location: [facility] : 57 -- Specimen: [id number] SOUT Spec [...] similar findings. Initial evaluation performed by Kd CHAU([facility]) 11/10/10 Final Interpretation electronically signed by: ANKITA DIAS 11/12/10 1151 -- DEPARTMENT OF PATHOLOGY, [address] [place] [address] [facility] Permit #[id number] Jaspreet Valverde M.D. Director Ankita Dias M.D. Graduate Civil Engineer Dir ryan -- 18 ---- RUN DATE: 12/30/09 [facility] NMI LIVE PAGE 1 RUN TIME: 1338 Specimen Inquiry RUN USER: INTERFACE -- Name: KALLIE PATEL Status: DIS IN Re12/26/09 Age/Sex: 54/F Unit#: [id number] Location: : 57 -- Specimen: [id number] SOUT Spec Date: 12/27/[address]: Nikolai Hopkins MD Spec Type: CYTOLOGY Received: 12/27/09-9201 Copies to: Daisha claire MD SOURCE BODY FLUID (SITE): Pleural PATIENT INFORMATION ACTUAL COLLECTION DATE: 12/27/09 PATIENT HISTORY: hodgkins lymphoma GROSS DESCRIPTION 30 mls of bloody,cloudy pleural fluid Specimen sent for Flow Cytometry on 12/27/09 to Labs in [place], [place]. DIAGNOSIS Mesothelial cells, mature lymphocytes, macrophages, and blood. No evidence of non- Hodgkin or Hodgkin lymphoma. COMMENT Flow has been performed at Laboratories in [place], [place]. The testing reveals: Patient Name: KALLIE PATEL Collection Date: 12/27/2009 Ordering Physician: Jaspreet Valverde M.D. Received Date: 12/28/2009 Treating Physician: Yunier Manzano Report Date: 12/30/2009 [facility] Ref #: [id number] Medical Record #: Not Given Specimen ID #: [id number] Date of ,Sex: 1955, N Flow Cytometry Immunophenotypic Report INTERPRETATION: PLEURAL FLUID, RIGHT LUNG: NO LYMPHOID MONOCLONALITY OR ABERRANT IMMUNOPHENOTYPIC EXPRESSION DETECTED. -- DEPARTMENT OF PATHOLOGY, [address] [place] [address] [facility] Permit #[id number] Jaspreet Valverde M.D. Director Ankita Dias M.D. Graduate Civil Engineer Dir [email or web address] -- -- RUN DATE: 12/30/09 [facility] NMI LIVE PAGE 2 RUN TIME: 1338 Specimen Inquiry RUN USER: INTERFACE -- Name: KALLIE PATEL Status: DIS IN Re12/26/09 Age/Sex: 54/F Unit#: [id number] Location: [facility] : 57 -- -- CONTINUED -- COMMENT (Continued) Comments: Clinical and morphologic correlation is recommended. Submitted Dx: Evaluation for non-Hodgkin lymphoma Viability: 98% Flow Differential Population Analysis Lymphocytes: 97% B-cells: 18%, polyclonal/polytypic sIg light chain pattern T-cells: no aberrant expression of the markers tested CD4:CD8=6.5 NK-cells: 3% (not increased) [id number] 3% events/ debris: No significant reactivity with the markers tested (contains rare non-hematolymphoid cells) Antibodies Performed: CD2, CD3, CD4, CD5, CD7, CD8, CD19, [place], Lambda, CD20, CD23, FMC-7, CD11b, CD10, CD45, HLA-DR, CD38, CD56, CD30 (Original [facility] report available upon request by calling Pathology at [phone]). Initial evaluation performed by Rosetta STEWART([facility]) 12/30/09 Final Interpretation electronically signed by: ANKITA DIAS 12/30/09 1338 -- -- DEPARTMENT OF PATHOLOGY, [address] [place] [address] [facility] Permit #[id number] Jaspreet Valverde M.D. Director Ankita Dias M.D. Graduate Civil Engineer Dir ryan -- 19 REVIEWED BY ANKITA DIAS MD NEGATIVE FOR MALIGNANT CELLS 20 FINAL: NO GROWTH DAY 4 21 NO ORGANISMS SEEN BY CYTOSPIN SMEAR FEW Procedures Date Code Description Status 12/30/2018 57134 ECHO Transthorasic Realtime 2D W Doppler & Color Flow Completed Hosp 12/29/2018 96795 Arterial Line Completed 12/28/2018 39680 Insert Non-Tunneled Venous Catether Completed 12/12/2018 62164 Pace Maker Eval W/Iterative Adjment Dual Lead Completed 12/12/2018 24077 Pace Maker Eval W/Iterative Adjment Dual Lead Completed 10/27/2018 53517 Icd Eval Sing,Dual,Multi Lead Remote Recpt Transm Tech Completed Rev Tech S 10/27/2018 66214 Icd Eval Sing,Dual,Multi Lead Remote Recpt Transm Tech Completed Rev Tech S 10/27/2018 69856 Pacemaker Check Remote Up To 90Days Completed Single,Dual,Multiple Lead 10/27/2018 55189 Pacemaker Check Remote Up To 90Days Completed Single,Dual,Multiple Lead 10/07/2018 78627 Hysteroscopy, Surgical W/Biopsy Endometrium/Polpectomy Completed W/W/O D&C 10/07/2018 08549 Mastectomy Mod Radical Not Including Pectoralis Major Completed Muscle 10/07/2018 02610 Mastectomy Mod Radical Not Including Pectoralis Major Completed Muscle 09/20/2018 91571 EKG Tracing & Interpretation Completed 08/25/2018 49284 Endometrial Sampling W Or W/O Endocervical BX W Or W/O Completed Cerv Dilat 07/27/2018 40794942 Mammogram Completed 07/25/2018 36931 Pace Maker Eval W/Iterative Adjment Dual Lead Completed 07/25/2018 42976 Pace Maker Eval W/Iterative Adjment Dual Lead Completed 06/16/2018 22002 Pace Maker Eval W/Iterative Adjment Dual Lead Completed 06/16/2018 70590 Pace Maker Eval W/Iterative Adjment Dual Lead Completed 05/26/2018 61960 EKG Tracing & Interpretation Completed 05/19/2018 81173 Pace Maker Eval W/Iterative Adjment Dual Lead Completed 05/19/2018 19482 EKG, Interpretation Only Completed 05/18/2018 87601 EKG, Interpretation Only Completed 05/18/2018 [address] Sequential Atrial And Ventricular Completed 05/15/2018 55727 EKG, Interpretation Only Completed 05/14/2018 08742 EKG, Interpretation Only Completed 05/13/2018 93835 EKG, Interpretation Only Completed 05/06/2018 02009 EKG, Interpretation Only Completed 05/05/2018 43489 EKG, Interpretation Only Completed 05/04/2018 94183 EKG, Interpretation Only Completed 05/03/2018 62705 EKG, Interpretation Only Completed 04/06/2018 25974 Echocardiogram, Limited Study Completed 04/04/2018 15259 ECHO Transthorasic Realtime 2D W Doppler & Color Flow Completed Hosp 04/01/2018 87014 EKG Tracing & Interpretation Completed 01/17/2018 75235 EKG Tracing & Interpretation Completed 11/26/2017 14475 ECHO Transthorasic Realtime 2D W Doppler & Color Flow Completed Hosp 05/04/2017 21813 EKG Tracing & Interpretation Completed 10/20/2016 08277 EKG Tracing & Interpretation Completed 05/05/2016 85341 EKG Tracing & Interpretation Completed 08/26/2015 65085 EKG Tracing & Interpretation Completed 12/31/2014 98553 EKG Tracing & Interpretation Completed 07/11/2014 35273 Echocardiogram, Limited Study Completed 05/28/2014 63133 EKG Tracing & Interpretation Completed 05/15/2014 24305 ECHO Transthoracic, Real-Time 2D With Doppler And Color Completed Flow 10/23/2013 60403 EKG Tracing & Interpretation Completed 06/19/2013 90429 EKG Tracing & Interpretation Completed 06/05/2013 77736 Rhythm ECG With Interp Completed 06/05/2013 30225 EKG, Interpretation Only Completed 06/04/2013 23228 EKG, Interpretation Only Completed 06/03/2013 67019 EKG, Interpretation Only Completed 06/02/2013 19925 EKG, Interpretation Only Completed 06/01/2013 53432 EKG, Interpretation Only Completed 05/16/2013 73503 EKG Tracing & Interpretation Completed 04/21/2013 69177 ECHO Transthoracic, Real-Time 2D With Doppler And Color Completed Flow 04/06/2013 37132 EKG, Interpretation Only Completed 04/03/2013 71307 EKG Tracing & Interpretation Completed 03/21/2013 90381 EKG, Interpretation Only Completed 03/19/2013 23472 EKG, Interpretation Only Completed 04/26/2012 32154 EKG Tracing & Interpretation Completed 01/28/2012 45381 EKG, Interpretation Only Completed 12/26/2009 34423 EKG, Interpretation Only Completed Encounters Type Date Location Provider Dx Diagnosis Office Visit 01/09/2019 [facility] Ten Wooten I48.91 Unspecified atrial 2:54p Of Rhys Fuentes M.D. fibrillation Office Visit 01/08/2019 [facility] Gary SJudi I48.0 Paroxysmal atrial 1:30p Bucky Mcmullen fibrillation I50.30 Unspecified diastolic (congestive) heart failure I25.10 Athscl heart disease of [place] coronary artery w/o ang pctrs I44.7 Left bundle-branch block, unspecified I49.5 Sick sinus syndrome Z95.0 Presence of cardiac pacemaker Office Visit 01/07/2019 10:20a [facility] Arsh Storey, I48.91 Unspecified atrial M.D. fibrillation J91.8 Pleural effusion in other conditions classified elsewhere Office Visit 01/06/2019 10:19a [facility] Luis Flores, J96.01 Acute respiratory PA failure with hypoxia I48.91 Unspecified atrial fibrillation J90 Pleural effusion, not elsewhere classified I50.33 Acute on chronic diastolic (congestive) heart failure I11.0 Hypertensive heart disease with heart failure Office Visit 01/05/2019 10:19a [facility] Arsh Storey M.D. J98.11 Atelectasis I48.91 Unspecified atrial fibrillation D72.829 Elevated white blood cell count, unspecified R53.83 Other fatigue Office Visit 01/04/2019 10:18a [facility] Arsh Storey, J18.9 Pneumonia, M.D. unspecified organism I48.91 Unspecified atrial fibrillation Office Visit 01/03/2019 10:17a [facility] Arsh Storey, D72.829 Elevated white M.D. blood cell count, unspecified R00.0 Tachycardia, unspecified Office Visit 01/02/2019 10:16a [facility] Arsh Storey A41.81 Sepsis due to M.D. Enterococcus R65.21 Severe sepsis with septic shock J96.01 Acute respiratory failure with hypoxia J15.211 Pneumonia due to methicillin suscep staph Office Visit 01/01/2019 10:15a [facility] Anais Kellre1.81 Sepsis due to Enterococcus R65.21 Severe sepsis with septic shock J96.01 Acute respiratory failure with hypoxia N17.9 Acute kidney failure, unspecified D70.9 Neutropenia, unspecified R50.81 Fever presenting with conditions classified elsewhere J15.211 Pneumonia due to methicillin suscep staph D69.6 Thrombocytopenia, unspecified Office Visit 12/31/2018 10:15a [facility] Anais Keller1.81 Sepsis due to Enterococcus R65.21 Severe sepsis with septic shock J96.01 Acute respiratory failure with hypoxia N17.9 Acute kidney failure, unspecified D70.9 Neutropenia, unspecified R50.81 Fever presenting with conditions classified elsewhere J15.211 Pneumonia due to methicillin suscep staph E87.1 Hypo-osmolality and hyponatremia Office Visit 12/30/2018 10:14a [facility] Lawrence Sanchez, A41.81 Sepsis due to Enterococcus R65.21 Severe sepsis with septic shock J96.01 Acute respiratory failure with hypoxia N17.9 Acute kidney failure, unspecified D70.9 Neutropenia, unspecified R50.81 Fever presenting with conditions classified elsewhere J15.211 Pneumonia due to methicillin suscep staph E87.1 Hypo-osmolality and hyponatremia D69.6 Thrombocytopenia, unspecified Office Visit 12/27/2018 [facility] Florencia Dilnicko, E87.1 Hypo-osmolality and 3:49p Assoc,pc hyponatremia Hospitalists Office Visit 11/04/2018 [facility] Milena I25.10 Athscl heart disease 11: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 artery w/o ang pctrs I48.0 Paroxysmal atrial fibrillation I49.5 Sick sinus syndrome Z95.0 Presence of cardiac pacemaker I35.0 Nonrheumatic aortic (valve) stenosis I34.0 Nonrheumatic mitral (valve) insufficiency I50.32 Chronic diastolic (congestive) heart failure Office Visit 10/21/2018 [facility] Dvorah N84.0 Polyp of corpus 11:00a Clinic of Rhys Hernandez MD uteri Office Visit 09/20/2018 [facility] Milena Rose, Z01.810 Encounter for 12:00p Cardiology Of M.DJudi preprocedural [facility] cardiovascular examination C50.912 Malignant neoplasm of unspecified site of left female breast I50.32 Chronic diastolic (congestive) heart failure Z95.0 Presence of cardiac pacemaker I48.0 Paroxysmal atrial fibrillation I35.0 Nonrheumatic aortic (valve) stenosis I34.0 Nonrheumatic mitral (valve) insufficiency I44.7 Left bundle-branch block, unspecified Office Visit 09/01/2018 [facility] Kacy Fransisco N63.20 Unspecified lump in 1:00p [facility] MD Ant the left breast, [facility] unspecified quadrant Office Visit 08/25/2018 [facility] Dvorah N95.0 Postmenopausal 1:30p Clinic of Rhys Hernandez MD bleeding R93.89 Abnormal findings on dx imaging of ot body structures N88.8 Other specified noninflammatory disorders of cervix uteri 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 I34.0 Nonrheumatic mitral (valve) insufficiency I48.0 Paroxysmal atrial fibrillation I35.0 Nonrheumatic aortic (valve) stenosis Office Visit 07/15/2018 12:00p [facility] And Hortencia J44.9 Chronic Sleep Services Of MD Marcial obstructive Dredge Pump Operator pulmonary disease, unspecified J90 Pleural effusion, not elsewhere classified Office Visit 05/27/2018 8:00a [facility] Bryanna J44.9 Chronic MD Celio obstructive pulmonary disease, unspecified I50.42 Chronic combined systolic and diastolic hrt fail E87.6 Hypokalemia N63.20 Unspecified lump in the left breast, unspecified quadrant Z95.0 Presence of cardiac pacemaker Z85.72 Personal history of non-Hodgkin lymphomas Office Visit 05/26/2018 1:30p [facility] Jennifer Phelps, I49.5 Sick sinus Of [facility] MANAGER ETHICS syndrome Z79.899 Other exterminator (current) drug therapy I48.0 Paroxysmal atrial fibrillation I25.10 Athscl heart disease of [place] coronary artery w/o ang pctrs C85.90 Non-Hodgkin lymphoma, unspecified, unspecified site Office Visit 05/20/2018 [facility] J44.1 Chronic 11:28a Assoc, Gunnar Goff, obstructive Hospitalists MANAGER ETHICS pulmonary disease w (acute) exacerbation I50.43 Acute on chronic combined systolic and diastolic hrt fail I11.0 Hypertensive heart disease with heart failure I49.5 Sick sinus syndrome J90 Pleural effusion, not elsewhere classified Z95.0 Presence of cardiac pacemaker Office Visit 05/19/2018 3:43p [facility] Milena Rose, I48.0 Paroxysmal atrial Of Dredge Pump Operator M.D. fibrillation I50.9 Heart failure, unspecified J90 Pleural effusion, not elsewhere classified I25.10 Athscl heart disease of [place] coronary artery w/o ang pctrs I49.5 Sick sinus syndrome Z95.0 Presence of cardiac pacemaker Office Visit 05/19/2018 [facility] I11.0 Hypertensive heart 11:28a Assoc,[facility] Ramona, disease with heart Hospitalists MANAGER ETHICS failure I50.33 Acute on chronic diastolic (congestive) heart failure J44.0 Chronic obstructive pulmon disease w acute lower resp infct Z87.891 Personal history of nicotine dependence Z95.0 Presence of cardiac pacemaker Office Visit 05/18/2018 [facility] I11.0 Hypertensive heart 11:28a Assoc,[facility], disease with heart Hospitalists MANAGER ETHICS failure I50.33 Acute on chronic diastolic (congestive) heart failure J44.0 Chronic obstructive pulmon disease w acute lower resp infct J18.9 Pneumonia, unspecified organism Z95.0 Presence of cardiac pacemaker Office Visit 05/17/2018 2:15p [facility] Gary Dowling I49.5 Sick sinus Bucky Mcmullen syndrome Office Visit 05/17/2018 11:27a [facility] Lorin Hughes I49.5 Sick sinus Assoc, MANAGER ETHICS syndrome Hospitalists I11.0 Hypertensive heart disease with heart failure I50.33 Acute on chronic diastolic (congestive) heart failure J44.0 Chronic obstructive pulmon disease w acute lower resp infct J18.9 Pneumonia, unspecified organism Office Visit 05/16/2018 11:27a [facility] Lorin Hughes I49.5 Sick sinus Assoc, MANAGER ETHICS syndrome Hospitalists J44.0 Chronic obstructive pulmon disease w acute lower resp infct J18.9 Pneumonia, unspecified organism I11.0 Hypertensive heart disease with heart failure I50.33 Acute on chronic diastolic (congestive) heart failure Office Visit 05/15/2018 11:27a [facility] Luis I49.5 Sick sinus Assoc,pc EULOGIO Flores syndrome Hospitalists I11.0 Hypertensive heart disease with heart failure I50.33 Acute on chronic diastolic (congestive) heart failure J44.0 Chronic obstructive pulmon disease w acute lower resp infct J18.9 Pneumonia, unspecified organism Office Visit 05/15/2018 12:06p [facility] Pablito Jean I49.5 Sick sinus Bucky Felix syndrome I50.9 Heart failure, unspecified R94.31 Abnormal electrocardiogram [ECG] [EKG] Office Visit 05/14/2018 12:22p [facility] Pablito Jean I49.5 Sick sinus Bucky Felix syndrome I48.0 Paroxysmal atrial fibrillation R94.31 Abnormal electrocardiogram [ECG] [EKG] I50.9 Heart failure, unspecified Office Visit 05/14/2018 11:26a [facility] Luis I49.5 Sick sinus Assoc,EULOGIO Melissa syndrome Hospitalists J44.0 Chronic obstructive pulmon disease w acute lower resp infct J18.9 Pneumonia, unspecified organism I11.0 Hypertensive heart disease with heart failure I50.33 Acute on chronic diastolic (congestive) heart failure Office Visit 05/13/2018 3:55p [facility] Pablito Jean I49.5 Sick sinus Bucky Felix syndrome I25.10 Athscl heart disease of [place] coronary artery w/o ang pctrs I50.9 Heart failure, unspecified R94.31 Abnormal electrocardiogram [ECG] [EKG] J44.1 Chronic obstructive pulmonary disease w (acute) exacerbation Office Visit 05/13/2018 11:26a [facility] Luis I49.5 Sick sinus Assoc,EULOGIO Melissa syndrome Hospitalists J44.0 Chronic obstructive pulmon disease w acute lower resp infct J18.9 Pneumonia, unspecified organism J44.1 Chronic obstructive pulmonary disease w (acute) exacerbation I11.0 Hypertensive heart disease with heart failure I50.33 Acute on chronic diastolic (congestive) heart failure R94.31 Abnormal electrocardiogram [ECG] [EKG] Office Visit 05/12/2018 11:26a [facility] Luis J44.0 Chronic Assoc,pc Sandra, [place] obstructive Hospitalists pulmon disease w acute lower resp infct J18.9 Pneumonia, unspecified organism J44.1 Chronic obstructive pulmonary disease w (acute) exacerbation I11.0 Hypertensive heart disease with heart failure I50.33 Acute on chronic diastolic (congestive) heart failure F41.9 Anxiety disorder, unspecified R41.0 Disorientation, unspecified Office Visit 05/11/2018 11:26a [facility] Luis J44.0 Chronic Assoc,pc Sandra, [place] obstructive Hospitalists pulmon disease w acute lower resp infct J18.9 Pneumonia, unspecified organism J44.1 Chronic obstructive pulmonary disease w (acute) exacerbation I11.0 Hypertensive heart disease with heart failure I50.33 Acute on chronic diastolic (congestive) heart failure F41.9 Anxiety disorder, unspecified Office Visit 05/11/2018 11:50a Pulmonology And Hortencia J44.0 Chronic Sleep Services Of MD Marcial obstructive Dredge Pump Operator pulmon disease w acute lower resp infct J18.9 Pneumonia, unspecified organism J44.1 Chronic obstructive pulmonary disease w (acute) exacerbation J90 Pleural effusion, not elsewhere classified R53.83 Other fatigue Office Visit 05/10/2018 [facility] Bibi J44.0 Chronic 11:25a Assoc,sheridan Robles [...] Chronic Sleep Services Of MD Marcial obstructive Dredge Pump Operator pulmon disease w acute lower resp infct J18.9 Pneumonia, unspecified organism J44.1 Chronic obstructive pulmonary disease w (acute) exacerbation Z87.891 Personal history of nicotine dependence J90 Pleural effusion, not elsewhere classified Office Visit 05/09/2018 [facility] Mason Kirkland J44.0 Chronic 11:25a Assoc,sheridan Delacruz MD obstructive Hospitalists pulmon disease w acute lower resp infct J18.9 Pneumonia, unspecified organism Office Visit 05/08/2018 11:24a [facility] Denise Asher, R06.02 Shortness of Assoc,pc N.P. breath Hospitalists R53.83 Other fatigue D72.829 Elevated white blood cell count, unspecified Office Visit 05/05/2018 [facility] Mason Kirkland I50.31 Acute diastolic 11:55a Assoc,sheridan Delacruz MD (congestive) Hospitalists heart failure I45.81 Long QT syndrome I48.0 Paroxysmal atrial fibrillation I44.7 Left bundle-branch block, unspecified [facility] Acute diastolic 11:55a sheridan Vasquez M.D. (congestive) heart Hospitalists failure I48.0 Paroxysmal atrial fibrillation I45.81 Long QT syndrome I44.7 Left bundle-branch block, unspecified Office Visit 05/03/2018 [facility] I50.31 Acute diastolic 11:54a sheridan Vasquez M.D. (congestive) heart Hospitalists failure I48.0 Paroxysmal atrial fibrillation I45.81 Long QT syndrome I44.7 Left bundle-branch block, unspecified Office Visit 05/03/2018 8:54a [facility] [place] I50.9 Heart failure, Giselle Fuentes M.D. unspecified I48.0 Paroxysmal atrial fibrillation I45.81 Long QT syndrome Office Visit 05/02/2018 [facility] I50.31 Acute diastolic 11:54a sheridan aVsquez M.D. (congestive) heart Hospitalists failure I48.0 Paroxysmal atrial fibrillation I45.81 Long QT syndrome I44.7 Left bundle-branch block, unspecified Office Visit 04/10/2018 [facility] I50.33 Acute on chronic 9:18a sheridan Vasquez M.D. diastolic Hospitalists (congestive) heart failure R60.0 Localized edema N63.20 Unspecified lump in the left breast, unspecified quadrant I44.7 Left bundle-branch block, unspecified Office Visit 04/09/2018 [facility] I50.33 Acute on chronic 9:18a sheridan Vasquez M.D. diastolic Hospitalists (congestive) heart failure R60.0 Localized edema J44.9 Chronic obstructive pulmonary disease, unspecified N63.20 Unspecified lump in the left breast, unspecified quadrant I48.0 Paroxysmal atrial fibrillation I44.7 Left bundle-branch block, unspecified Office Visit 04/08/2018 [facility] I50.33 Acute on chronic 9:17a sheridan Vasquez M.D. diastolic Hospitalists (congestive) heart failure J44.9 Chronic obstructive pulmonary disease, unspecified N63.20 Unspecified lump in the left breast, unspecified quadrant I48.0 Paroxysmal atrial fibrillation I44.7 Left bundle-branch block, unspecified Office Visit 04/07/2018 [facility] I50.33 Acute on chronic 9:17a sheridan Vasquez M.D. diastolic Hospitalists (congestive) heart failure J44.1 Chronic obstructive pulmonary disease w (acute) exacerbation N63.20 Unspecified lump in the left breast, unspecified quadrant I48.0 Paroxysmal atrial fibrillation I44.7 Left bundle-branch block, unspecified Office Visit 04/06/2018 3:37p [facility] Milena Rose, I50.9 Heart failure, Of Dredge Pump Operator M.DJudi unspecified I27.20 Pulmonary hypertension, unspecified J90 Pleural effusion, not elsewhere classified I48.0 Paroxysmal atrial fibrillation I25.10 Athscl heart disease of [place] coronary artery w/o ang pctrs Z79.01 MCC (current) use of anticoagulants Office Visit 04/06/2018 [facility] I50.33 Acute on chronic 9:17a sheridan Vasquez M.D. diastolic Hospitalists (congestive) heart failure R60.0 Localized edema I48.0 Paroxysmal atrial fibrillation I44.7 Left bundle-branch block, unspecified J90 Pleural effusion, not elsewhere classified Office Visit 04/05/2018 [facility] I50.33 Acute on chronic 9:16a sheridan Vasquez M.D. diastolic Hospitalists (congestive) heart failure R60.0 Localized edema I48.0 Paroxysmal atrial fibrillation I44.7 Left bundle-branch block, unspecified J90 Pleural effusion, not elsewhere classified Z85.71 Personal history of Hodgkin lymphoma Office Visit 04/04/2018 [facility] Daisha Zamora I50.9 Heart failure , 9:16a sheridan Vasquez M.D. unspecified Hospitalists R60.0 Localized edema I48.0 Paroxysmal atrial fibrillation I44.7 Left bundle-branch block, unspecified J90 Pleural effusion, not elsewhere classified Office Visit 04/03/2018 [facility] Daisha Zamora I50.9 Heart failure , 9:16a sheridan Vasquez M.D. unspecified Hospitalists R60.0 Localized edema I89.0 Lymphedema, not elsewhere classified I48.0 Paroxysmal atrial fibrillation I44.7 Left bundle-branch block, unspecified J90 Pleural effusion, not elsewhere classified Office Visit 04/02/2018 [facility] Daisha Sera, I50.9 Heart failure , 9:16a Assoc,sheridan Lawler unspecified Hospitalists R60.0 Localized edema I89.0 Lymphedema, not elsewhere classified I48.0 Paroxysmal atrial fibrillation I44.7 Left bundle-branch block, unspecified J90 Pleural effusion, not elsewhere classified Office Visit 04/01/2018 3:30p [facility] Jennifer Lenin, R60.9 Edema, unspecified MANAGER ETHICS J44.1 Chronic obstructive pulmonary disease w (acute) exacerbation I25.10 Athscl heart disease of [place] coronary artery w/o ang pctrs I48.0 Paroxysmal atrial fibrillation Office Visit 04/01/2018 9:15a [facility] Isi I50.9 Heart failure, Assoc,sheridan Mattson D.O. unspecified Hospitalists I48.0 Paroxysmal atrial fibrillation I44.7 Left bundle-branch block, unspecified R60.0 Localized edema I89.0 Lymphedema, not elsewhere classified J90 Pleural effusion, not elsewhere classified Z87.891 Personal history of nicotine dependence Office Visit 01/17/2018 3:20p [facility] Milena Rose, I48.0 Paroxysmal atrial Of Dredge Pump Operator M.D. fibrillation I44.7 Left bundle-branch block, unspecified I34.0 Nonrheumatic mitral (valve) insufficiency I25.10 Athscl heart disease of [place] coronary artery w/o ang pctrs J44.1 Chronic obstructive pulmonary disease w (acute) exacerbation Office Visit 11/29/2017 [facility] R06.02 Shortness of 10:40a Assoc,EULOGIO Ybarra breath Hospitalists J44.1 Chronic obstructive pulmonary disease w (acute) exacerbation I48.91 Unspecified atrial fibrillation E03.9 Hypothyroidism, unspecified Office Visit 11/28/2017 [facility] R06.02 Shortness of 10:40a Assoc,EULOGIO Ybarra breath Hospitalists J44.1 Chronic obstructive pulmonary disease w (acute) exacerbation I48.91 Unspecified atrial fibrillation E03.9 Hypothyroidism, unspecified Office Visit 11/27/2017 10:39a [facility] Debra R06.02 Shortness of Assoc,sheridan Goff, breath Hospitalists MANAGER ETHICS J44.1 Chronic obstructive pulmonary disease w (acute) exacerbation I48.91 Unspecified atrial fibrillation E03.9 Hypothyroidism, unspecified Office Visit 11/26/2017 [facility] R06.02 Shortness of 10:37a sheridan Vasquez II, M.D. breath Hospitalists J44.1 Chronic obstructive pulmonary disease w (acute) exacerbation I48.91 Unspecified atrial fibrillation E03.9 Hypothyroidism, unspecified Office Visit 05/04/2017 4:00p [facility] Milena Rose, I48.0 Paroxysmal atrial Of Dredge Pump Operator M.D. fibrillation I44.7 Left bundle-branch block, unspecified I25.10 Athscl heart disease of [place] coronary artery w/o ang pctrs E78.00 Pure hypercholesterolemia, unspecified R73.9 Hyperglycemia, unspecified Office Visit 10/20/2016 3:30p [facility] Jovanna Ga, I48.0 Paroxysmal atrial PA fibrillation I44.7 Left bundle-branch block, unspecified I34.0 Nonrheumatic mitral (valve) insufficiency Office Visit 05/05/2016 4:00p [facility] Milena Rose, I48.0 Paroxysmal atrial Of Dredge Pump Operator M.D. fibrillation I44.7 Left bundle-branch block, unspecified I34.0 Nonrheumatic mitral (valve) insufficiency Office Visit 08/26/2015 3:45p [facility] Milena Rose I48.0 Paroxysmal atrial Of Dredge Pump Operator M.D. fibrillation I34.0 Nonrheumatic mitral (valve) insufficiency I44.7 Left bundle-branch block, unspecified Office Visit 12/31/2014 3:30p [facility] Jovanna Ga 427.31 Atrial Of Dredge Pump Operator PA Fibrillation 424.0 Mitral Valve Disorder 244.9 Hypothyroidism Other Unspec 397.0 Tricuspid Valve Disease 424.1 Aortic Valve Disorder Office Visit 05/28/2014 3:00p [facility] Jovanna Ga, PA 424.0 Mitral Valve Of Dredge Pump Operator Disorder 427.31 Atrial Fibrillation 401.9 Hypertension Unspec 424.1 Aortic Valve Disorder Office Visit 10/23/2013 3:15p [facility] Milena Rose 427.31 Atrial Cardiology Of M.D. Fibrillation Dredge Pump Operator 427.32 Atrial Flutter 794.31 Electrocardiogram (ECG) (EKG) Abnormal 424.0 Mitral Valve Disorder Office Visit 06/19/2013 2:00p [facility] Milena Rose 427.31 Atrial Cardiology Of M.D. Fibrillation Dredge Pump Operator 427.32 Atrial Flutter 401.0 Hypertension Malignant Office Visit 06/05/2013 8:43a [facility] [place] 427.32 Atrial Flutter Of Dredge Pump Operator Bucky Fuentes Office Visit 06/04/2013 2:21p [facility] Antonino Garcia 427.32 Atrial Flutter Of Dredge Pump Operator Bucky Miller, [facility], [facility] Office Visit 06/03/2013 1:49p [facility] Antonino Garcia 427.32 Atrial Flutter Of Dredge Pump Operator Bucky Miller, [facility], [facility] Office Visit 06/02/2013 2:52p [facility] Milena Rose 427.31 Atrial Of Dredge Pump Operator M.D. Fibrillation Office Visit 06/01/2013 1:36p [facility] Milena Rose 427.31 Atrial Of Dredge Pump Operator M.D. Fibrillation Office Visit 05/16/2013 3:30p [facility] Nurse Visit 427.32 Atrial Flutter Of Dredge Pump Operator IC Office Visit 05/09/2013 3:45p [facility] Milena Rose 427.32 Atrial Flutter Of Dredge Pump Operator M.D. 424.0 Mitral Valve Disorder Office Visit 04/03/2013 11:15a [facility] Milena Rose 427.32 Atrial Flutter Of Dredge Pump Operator M.D. 427.31 Atrial Fibrillation 511.9 Pleurisy Effusion Unspec 782.3 Edema Office Visit 03/23/2013 [facility] 682.3 Cellulitis & 5:35p sheridan Vasquez II, M.D. Abscess Upper Hospitalists Arm & Forearm 288.8 White Blood Cell Disease Other 427.31 Atrial Fibrillation 511.9 Pleurisy Effusion Unspec Office Visit 03/22/2013 [facility] 682.3 Cellulitis & 5:35p sheridan Vasquez II, M.D. Abscess Upper Hospitalists Arm & Forearm 427.31 Atrial Fibrillation 244.9 Hypothyroidism Other Unspec 288.8 White Blood Cell Disease Other Office Visit 03/21/2013 [facility] 682.3 Cellulitis & 5:34p sheridan Vasquez II, M.D. Abscess Upper Hospitalists Arm & Forearm 427.31 Atrial Fibrillation 244.9 Hypothyroidism Other Unspec 288.8 White Blood Cell Disease Other Office Visit 03/20/2013 [facility] 682.3 Cellulitis & 5:34p sheridan Vasquez II, M.D. Abscess Upper Hospitalists Arm & Forearm 427.31 Atrial Fibrillation 244.9 Hypothyroidism Other Unspec 288.8 White Blood Cell Disease Other Office Visit 03/19/2013 [facility] 682.3 Cellulitis & 5:33p sheridan Vasquez II, M.D. Abscess Upper Hospitalists Arm & Forearm 427.31 Atrial Fibrillation 244.9 Hypothyroidism Other Unspec 288.8 White Blood Cell Disease Other Office Visit 03/18/2013 [facility] 682.3 Cellulitis & 5:32p sheridan Vasquez II, M.D. Abscess Upper Hospitalists Arm & Forearm 427.31 Atrial Fibrillation 244.9 Hypothyroidism Other Unspec 288.8 White Blood Cell Disease Other Office Visit 04/26/2012 [facility] Milena Rose, 427.31 Atrial Fibrillation 2:45p Of Rhys Lawler [facility] Hyp[facility]roidism 1:30a sheridan Vasquez M.D. Other Unspec Hospitalists Office Visit 12/26/2009 [facility] Sahzene Yavuz, 511.9 Pleurisy Effusion 1:15a sheridan Vasquez M.D. Unspec Hospitalists Office Visit 12/25/2009 [facility] Daisha 511.9 Pleurisy Effusion 1:15a sheridan Vasquez M.D. Unspec Hospitalists Plan of Treatment Future Appointment(s):04/03/2019 6:20 am - Remote Device Checks at [facility]12/01/2018 - Kacy Cain MDB37.9 Candidiasis, ctxplxpohwuS88.912 Malignant neoplasm of unspecified site of left female breastFollow up:As needed
--- NOTE | 2019-02-17 23:23 | ED ---
Palpitations / Dysrhythmia - HPI Summary HPI Summary: This patient is a 63 year old female presenting to [facility] with a chief complaint of palpitations. The patient has a Hx of atrial fibrillation and last had problems with palpitations 6 months ago. She states her heart rate was 136 BPM at home. She states the symptoms have resolved upon arrival. She has no other complaints. - History of Current Complaint Chief Complaint: EDDysrhythmPalp Time Seen by Provider: 02/17/19 22:58 Hx Obtained From: Patient Onset/Duration: Lasting Hours, Resolved Severity Initially: Moderate Severity Currently: None Character: Fast - Allergy/Home Medications Allergies/Adverse Reactions: Allergies Allergy/AdvReac Type Severity Reaction Status Date / Time clindamycin Allergy Severe Tachycardia Verified 02/17/19 22:24 dronedarone Allergy Severe Anaphylatic Verified 02/17/19 22:24 Shock penicillin G Allergy Severe Anaphylatic Verified 02/17/19 22:24 Shock sotalol Allergy Intermediate Fatigue Verified 02/17/19 22:24 atenolol Allergy Unknown Verified 02/17/19 22:24 Reaction Details levofloxacin AdvReac Intermediate Itching Verified 02/17/19 22:24 Home Medications: Home Medications Ipratropium HFA INHALER(NF) [Atrovent Hfa Inhaler(NF)] 17 mcg INH QID PRN [History Confirmed 02/17/19] Torsemide TAB* [Demadex 20 MG*] 10 mg PO DAILY 02/17/19 [History Confirmed 02/17] PMH/Surg Hx/FS Hx/Imm Hx Endocrine/Hematology History: Reports: Hx Thyroid Disease Denies: Hx Diabetes Cardiovascular History: Reports: Hx Congestive Heart Failure, Hx Hypertension, Hx Pacemaker/ICD, Other Cardiovascular Problems/Disorders - A-flutter history; takes Xarelto, Tikosyn, metoprolol; lymphedema left arm Denies: Hx Coronary Artery Disease Respiratory History: Reports: Hx Chronic Bronchitis, Hx Chronic Obstructive Pulmonary Disease (COPD), Hx Pleural Effusion, Hx Pneumonia, Other Respiratory Problems/Disorders - PNEUMONIA FALL/2018 Denies: Hx Asthma GI History: Reports: Hx Gastroesophageal Reflux Disease History: Reports: Other Problems/Disorders - 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 Psychiatric History: Reports: Hx Anxiety - ON DAILY MEDS, Hx Post Traumatic Stress Disorder - Cancer History Cancer Type, Location and Year: hx of hodgkins lymphoma diagnosed in 1987. treated with chemo and radiation. Breast CA diagnosed 08/02/18 Hx Chemotherapy: Yes - HX OF HODKINS LYMPHOMA 1990 Hx Radiation Therapy: Yes - Surgical History Surgery Procedure, Year, and Place: THORACOTOMY, exploratory laparotomy for lymphoma Hx Anesthesia Reactions: No - Immunization History Date of Influenza Vaccine: not in 2017 Infectious Disease History: No Infectious Disease History: Reports: Hx Shingles Denies: Traveled Outside the [place] in Last 30 Days - Family History Known Family History: Positive: Other - Aunt/father with throat cancer - Social History Alcohol Use: None Alcohol Amount: 1-2 DRINKS/MONTH Hx Substance Use: No Substance Use Type: Reports: Marijuana Substance Use Comment - Amount & Last Used: In the past Hx Tobacco Use: Yes Smoking Status (MU): Former Smoker Type: Cigarettes Amount Used/How Often: 10 years 1 ppd; plus 10 years 5 cigarettes/day Have You Smoked in the Last Year: No Review of Systems Negative: Fever Positive: Palpitations All Other Systems Reviewed And Are Negative: Yes Physical Exam - Summary Physical Exam Summary: VITAL SIGNS: Reviewed. GENERAL: Patient is a well-developed and nourished FEMALE who is lying comfortable in the stretcher. Patient is not in any acute respiratory distress. HEAD AND FACE: No signs of trauma. No ecchymosis, hematomas or skull depressions. No sinus tenderness. EYES: PERRLA, EOMI x 2, No injected conjunctiva, no nystagmus. EARS: Hearing grossly intact. Ear canals and tympanic membranes are within normal limits. MOUTH: Oropharynx within normal limits. NECK: Supple, trachea is midline, no adenopathy, no JVD, no carotid bruit, no c- spine tenderness, neck with full ROM. CHEST: Symmetric, no tenderness at palpation LUNGS: Clear to auscultation bilaterally. No wheezing or crackles. CVS: Regular rate and rhythm, S1 and S2 present, no gallops appreciated. 2 over 6 systolic murmur over the right mid sternal border. ABDOMEN: Soft, non-tender. No signs of distention. No rebound no guarding, and no masses palpated. Bowel sounds are normal. EXTREMITIES: FROM in all major joints, no edema, no cyanosis or clubbing. Chronic left arm edema consistent with lymphodema. NEURO: Alert and oriented x 3. No acute neurological deficits. Speech is normal and follows commands. SKIN: Dry and warm Triage Information Reviewed: Yes Vital Signs On Initial Exam: Initial Vitals Temp Pulse Resp BP Pulse Ox 97.3 F 90 18 122/56 100 02/17/19 22:24 02/17/19 22:24 02/17/19 22:24 02/17/19 22:24 02/17/19 22:24 Vital Signs Reviewed: Yes Diagnostics - Vital Signs Vital Signs Temp Pulse Resp BP Pulse Ox 02/17/19 22:24 97.3 F 90 18 122/56 100 - Laboratory Result Diagrams: 02/18/19 00:34 02/18/19 00:34 Lab Statement: Any lab studies that have been ordered have been reviewed, and results considered in the medical decision making process. - EKG 2224 Cardiac Rate: NL EKG Rhythm: Sinus Rhythm - 90 BPM EKG Comparison: No Significant Change Summary of EKG Findings: LBBB Course/Dx - Course Course Of Treatment: This patient is a 63 year old female presenting to [facility] with a chief complaint of palpitations. Patient has rate control, her INR is theraputic. The patients symptoms have resolved and can go home. A plan for discharge was discussed with the patient and she was agreeable with this plan. - Diagnoses Provider Diagnoses: Paroxysmal atrial fibrillation Discharge - Sign-Out/Discharge Documenting (check all that apply): Patient Departure - Discharge Patient Received Moderate/Deep Sedation with Procedure: No - Discharge Plan Condition: Stable Disposition: HOME Patient Education Materials: A-fib (Atrial Fibrillation) (ED) Referrals: Philip Chirinos MD [Primary Care Provider] - Additional Instructions: Return to ED with any new or worsening symptoms. - Attestation Statements Document Initiated by Scribe: Yes Documenting Scribe: dEilberto Rossi Provider For Whom Scribe is Documenting (Include Credential): Samuel Ware MD Scribe Attestation: Edilberto Damon scribed for Samuel Ware MD on 02/18/19 at 0210. Status of Scribe Document: Ready
[2019-02-18 00:49] LABS: ABS Basophils 0.1 10^3/ul (0-0.2); ABS Lymphocytes 0.5 10^3/ul (1.0-4.8); ABS Monocytes 0.8 10^3/ul (0-0.8); ABS Neutrophils 5.6 10^3/ul (1.5-7.7); Eosinophil % 0.5 %; Hematocrit 36 % (35-47); Hemoglobin 11.7 g/dL (12.0-16.0); Lymphocyte % 7.1 %; Mean Corpuscular HGB Conc 32 g/dL (31-36); Mean Corpuscular Hemoglobin 29 pg (27-31); Mean Corpuscular Volume 90 fL (80-97); Mean Platelet Volume 7.4 fL (7.4-10.4); Platelet Count 289 10^3/uL (150-450); Red Blood Count 4.03 10^6 /uL (3.70-4.87); Red Cell Distribution Width 17 % (10-15); White Blood Count 7.1 10^3/uL (3.5-10.8)
[2019-02-18 00:51] LABS: Activated Partial Thrombo Time 47.4 seconds (26.0-38.0); INR 2.58 (0.82-1.09)
[2019-02-18 01:11] LABS: Albumin 4.2 g/dL (3.2-5.2); Albumin/Globulin Ratio 1.4 (1-3); Calcium 9.3 mg/dL (8.6-10.3); EGFR Non-African American 56.2 (>60); Globulin 3.1 g/dL (2-4); Magnesium 2.2 mg/dL (1.9-2.7); Potassium 3.8 mmol/L (3.5-5.0); Total Bilirubin 0.4 mg/dL (0.2-1.0); Total Protein 7.3 g/dL (6.4-8.9)
[2019-02-18 01:12] LABS: Troponin I 0.01 ng/mL (<0.04)
[2019-02-18 01:42] LABS: TSH (Thyroid Stimulating Horm) 5.53 mcIU/mL (0.34-5.60)
[2019-02-18 02:22] VITALS: BP 105/61
== END 2019-02-18 03:10 | disposition home or self-care (01) ==
LOC: ED 22:20
DX: I48.0 Paroxysmal atrial fibrillation (principal); E07.9 Disorder of thyroid, unspecified; I50.9 Heart failure, unspecified; I11.0 Hypertensive heart disease with heart failure; J44.9 Chronic obstructive pulmonary disease, unspecified; K21.9 Gastro-esophageal reflux disease without esophagitis; Z88.1 Allergy status to other antibiotic agents; Z88.0 Allergy status to penicillin; Z88.8 Allergy status to other drugs, medicaments and biological substances; Z79.899 Other long term (current) drug therapy; Z95.810 Presence of automatic (implantable) cardiac defibrillator; Z79.01 Long term (current) use of anticoagulants; Z87.891 Personal history of nicotine dependence
CPT/HCPCS: 36415; 80053; 83735; 84443; 84484; 85025; 85610; 85730; 93005; 99283

== ENCOUNTER 2019-04-19 16:54 | Emergency (ER) | payer OTHER ==
--- OUTSIDE RECORDS SUMMARY | 2019-04-19 17:27 | XMS REPORT | Continuity of Care Document ---
:1955 External Reference #:[id number] Author Name Milena Rose M.D. (transmitted by agent of provider Augustina Dumont) Address [facility] [place] [address] Care Team Providers Name Role Phone Milena Rose MD - Cardiovascular Care Team Information Hospice Physician Disease Nikolai Chirinos MD - Family Medicine Care Team Information Hospice Physician [phone] Problems Active Problems Provider Date Atrial flutter [...] heart failure Milena Rose M.D. Onset: 11/04/2018 Social History Type Date Description Comments Sex Unknown Cigarette Use Quit 12 Years Ago 2006 Smokeless Tobacco Never Used Smokeless Tobacco ETOH Use Rarely consumes alcohol Tobacco Use Start: Unknown Patient is a former hx 1 pack cigarettes End: smoker per day Recreational Drug Use Denies Drug Use Tobacco Use Start: Unknown Medical Marijuana used for chemotherapy, not current Smoking Status Reviewed: 02/01/19 Medical Marijuana used for chemotherapy, not current [...] Ordering Date Provider Dofetilide take one tablet 180caps Milena Rose, 12/26/2018 250mcg by mouth twice M.D. Capsules daily. Miconazole Nitrate apply as directed 60gm Kenan Nguyen, 11/22/2018 2% M.DJudi Cream Nystatin apply as directed 1units Kacy Cain, 09/23/2018 Powder to affected area bid Oxycodone HCL 1 tabs by mouth Unknown 5mg every 4-6 hours Tablets as needed Torsemide 1 /2by mouth Daisha Sera, 20mg Tablets every day M.D. Metoprolol Tartrate 1 by mouth twice Milena Rose, a day M.D. 25mg Tablets Acetaminophen ER 1 tab by mouth q4 Unknown 650mg hours as needed Tablets ER pain Magnesium-Oxide 1 cap by mouth Unknown bid 400(241.3mg) mg Tablets Buspirone HCL Take 1 by mouth Unknown 5mg three times a day Tablets (patient states she is not currently using) Ventolin HFA 2 puffs Unknown inhalation four 108(90Base) mcg/Act times a day as Aerosol needed Marshall 3-6-9 1 cap po once Unknown 1200mg [...] 1000mg Capsules Manoj-Mag 2 soft gel caps Unknown Soft Gel po twice daily Levothyroxine Sodium 1 po qd Unknown 75mcg Tablets Xarelto 1 po qd 30tabs Nikolai Chirinos, 20mg Tablets MD History Medications Monistat 4% Cream apply to skin as Kenan Nguyen, 11/22/2018 - directed Bucky Unknown Oxycodone-Acetami 1--2 tab by mouth 12tabs C50.912 Kacy Cain, 2018 - nophen every 4- 6 hours Unknown 5-325mg as needed for Tablets pain Nystatin topically twice a 30units Kacy Cain, 09/23/2018 - day to the skin Unknown [id number]/GM around the wound Cream as needed Oxycodone-Acetami 1 tab by mouth 8tabs Ann Marie B. 09/23/2018 - nophen every 6 hours as VIVIAN Vu Unknown 5-325mg needed for pain Tablets Immunizations Description No Information Available Vital Signs Date Vital Result Comment 02/01/2019 2:22pm Height 66 inches 5'6" Weight 153.50 lb with shoes Heart Rate 76 /min left radial BP Systolic Sitting 122 mmHg ure, reg cuff BP Diastolic Sitting 78 mmHg ure, reg cuff BMI (Body Mass Index) 24.8 kg/m2 Ejection Fraction 55-60%, pc echo 12/30/18 12/01/2018 2:09pm Heart Rate 78 /min Respiratory Rate 18 /min Body Temperature 97.1 F Results Test Date Facility Test Result H/L Range Note Laboratory test 02/08/2019 [facility] Magnesium 2.1 mg/dL Normal 1.9-2.[address] [place] [address] [phone] CBC Auto Diff 12/21/2018 [facility] White Blood 8.6 10^3/uL Normal 3.5-10.[address] [place] [address] [phone] Red Blood Count 5.25 10^6/uL High 3.70-4.87 Hemoglobin 15.4 g/dL Normal 12.0-16.0 Hematocrit 47 % Normal 35-47 Mean Corpuscular Volume 90 fL Normal 80-97 Mean Corpuscular Hemoglobin 29 pg Normal 27-31 Mean Corpuscular HGB Conc 33 g/dL Normal 31-36 Red Cell Distribution Width 14 % Normal 10-15 Platelet Count 258 10^3/uL Normal 150-450 Mean Platelet Volume 8.4 fL Normal 7.4-10.4 Abs Neutrophils 7.8 10^3/uL High 1.5-7.7 Abs Lymphocytes 0.5 10^3/uL Low 1.0-4.8 Abs Monocytes 0.3 10^3/uL Normal 0-0.8 Abs Eosinophils 0.0 10^3/uL Normal 0-0.6 Abs Basophils 0.0 10^3/uL Normal 0-0.2 Abs Nucleated RBC 0.0 10^3/uL Granulocyte % 90.0 % Lymphocyte % 5.9 % Monocyte % 4.0 % Eosinophil % 0.0 % Basophil % 0.1 % Nucleated Red Blood Cells % 0.1 Comp Metabolic Panel 12/21/2018 [facility] Sodium 133 mmol/L Low 135-145 [address] [place] [address] [phone] Potassium 4.6 mmol/L Normal 3.5-5.0 Chloride 94 mmol/L Low 101-111 Co2 Carbon Dioxide 29 mmol/L Normal 22-32 Anion Gap 10 mmol/L Normal 2-11 Glucose 205 mg/dL High 70-100 Blood Urea Nitrogen 24 mg/dL Normal 6-24 Creatinine 0.79 mg/dL Normal 0.51-0.95 BUN/Creatinine Ratio 30.4 High 8-20 Calcium 9.7 mg/dL Normal 8.6-10.3 Total Protein 8.2 g/dL Normal 6.4-8.9 Albumin 4.4 g/dL Normal 3.2-5.2 Globulin 3.8 g/dL Normal 2-4 Albumin/Globulin Ratio 1.2 Normal 1-3 Total Bilirubin 0.70 mg/dL Normal 0.2-1.0 Alkaline Phosphatase 61 U/L Normal 34-104 Alt 51 U/L Normal 7-52 Ast 49 U/L High 13-39 Egfr Non- 73.7 >60 Egfr 89.2 >60 1 Basic Metabolic 11/17/2018 [facility] Sodium 137 mmol/L Normal 135-[address] [place] [address] [phone] Potassium 4.6 mmol/L Normal 3.5-5.0 Chloride 96 mmol/L Low 101-111 Co2 Carbon Dioxide 33 mmol/L High 22-32 Anion Gap 8 mmol/L Normal 2-11 Glucose 138 mg/dL High 70-100 Blood Urea Nitrogen 34 mg/dL High 6-24 Creatinine 0.96 mg/dL High 0.51-0.95 BUN/Creatinine Ratio 35.4 High 8-20 Calcium 9.9 mg/dL Normal 8.6-10.3 Egfr Non- 58.9 >60 Egfr 71.3 >60 2 Laboratory test 11/17/2018 [facility] Magnesium 2.3 mg/dL Normal 1.9-2.7 3 finding [address] [place] [address] [phone] CBC Auto Diff 09/23/2018 [facility] White Blood 6.2 Normal 3.5 -10.[address] Count 10^3/[place] [address] [phone] Red Blood Count 4.62 10^6/uL Normal 3.70-4.87 Hemoglobin 14.0 g/dL Normal 12.0-16.0 Hematocrit 42 % High 33-41 Mean Corpuscular Volume 92 fL Normal 80-97 Mean Corpuscular Hemoglobin 30 pg Normal 27-31 Mean Corpuscular HGB Conc 33 g/dL Normal 31-36 Red Cell Distribution Width 16 % High 10.5-15 Platelet Count 317 10^3/uL Normal 150-450 Mean Platelet Volume 8.3 fL Normal 7.4-10.4 Abs Neutrophils 4.1 10^3/uL Normal 1.5-7.7 Abs Lymphocytes 1.0 10^3/uL Normal 1.0-4.8 Abs Monocytes 0.9 10^3/uL High 0-0.8 Abs Eosinophils 0 10^3/uL Normal 0-0.6 Abs Basophils 0.1 10^3/uL Normal 0-0.2 Abs Nucleated RBC 0 10^3/uL Granulocyte % 67.0 % Lymphocyte % 16.2 % Monocyte % 15.4 % Eosinophil % 0.3 % Basophil % 1.1 % Nucleated Red Blood Cells % 0.1 Basic Metabolic 09/23/2018 [facility] Sodium 133 mmol/L Low 135-145 Panel [address] [place] [address] [phone] Potassium 4.5 mmol/L Normal 3.5-5.0 Chloride 95 mmol/L Low 101-111 Co2 Carbon Dioxide 32 mmol/L Normal 22-32 Anion Gap 6 mmol/L Normal 2-11 Glucose 107 mg/dL High 70-100 Blood Urea Nitrogen 31 mg/dL High 6-24 Creatinine 0.83 mg/dL Normal 0.51-0.95 BUN/Creatinine Ratio 37.3 High 8-20 Calcium 9.8 mg/dL Normal 8.6-10.3 Egfr Non- 69.9 >60 Egfr 84.6 >60 4 Type & Screen 09/23/2018 [facility] Patient Blood Type B Positive [address] [place] [address] [phone] Antibody Screen NEGATIVE Comp Metabolic Panel 08/30/2018 [facility] Sodium 132 mmol/L Low 135-145 [address] [place] [address] [phone] Potassium 4.4 mmol/L Normal 3.5-5.0 Chloride 95 mmol/L Low 101-111 Co2 Carbon Dioxide 31 mmol/L Normal 22-32 Anion Gap 6 mmol/L Normal 2-11 Glucose 129 mg/dL High 70-100 Blood Urea Nitrogen 31 mg/dL High 6-24 Creatinine 0.78 mg/dL Normal 0.51-0.95 BUN/Creatinine Ratio 39.7 High 8-20 Calcium 9.8 mg/dL Normal 8.6-10.3 Total Protein 7.9 g/dL Normal 6.4-8.9 Albumin 4.1 g/dL Normal 3.2-5.2 Globulin 3.8 g/dL Normal 2-4 Albumin/Globulin Ratio 1.1 Normal 1-3 Total Bilirubin 0.50 mg/dL Normal 0.2-1.0 Alkaline Phosphatase 39 U/L Normal 34-104 Alt 36 U/L Normal 7-52 Ast 33 U/L Normal 13-39 Egfr Non- 75.1 >60 Egfr 90.9 >60 5 CBC Auto 08/30/2018 [facility] White Blood 7.8 10^3/uL Normal 3.5-10.[address] [place] [address] [phone] Red Blood Count 4.63 10^6/uL Normal 4.00-5.40 Hemoglobin 13.5 g/dL Normal 12.0-16.0 Hematocrit 41 % Normal 35-47 Mean Corpuscular Volume 89 fL Normal 80-97 Mean Corpuscular Hemoglobin 29 pg Normal 27-31 Mean Corpuscular HGB Conc 33 g/dL Normal 31-36 Red Cell Distribution Width 18 % High 10.5-15 Platelet Count 287 10^3/uL Normal 150-450 Mean Platelet Volume 8.0 fL Normal 7.4-10.4 Abs Neutrophils 6.1 10^3/uL Normal 1.5-7.7 Abs Lymphocytes 0.9 10^3/uL Low 1.0-4.8 Abs Monocytes 0.7 10^3/uL Normal 0-0.8 Abs Eosinophils 0 10^3/uL Normal 0-0.6 Abs Basophils 0.1 10^3/uL Normal 0-0.2 Abs Nucleated RBC 0 10^3/uL Granulocyte % 78.3 % Lymphocyte % 12.0 % Monocyte % 8.5 % Eosinophil % 0.5 % Basophil % 0.7 % Nucleated Red Blood Cells % 0 1 Because ethnic data is not always [...] 3 November Copy Result to: NIKOLAI CHIRINOS ([id number]) 4 Because ethnic data is not always [...] 15-29 5 Kidney failure <15 (or dialysis) Procedures Date Code Description Status 02/01/2019 89150 EKG Tracing & Interpretation Completed 12/30/2018 25902 ECHO Transthorasic Realtime 2D W Doppler & Color Flow Completed Hosp 12/29/2018 64131 Arterial Line Completed 12/28/2018 43456 Insert Non-Tunneled Venous Catether Completed 12/12/2018 61110 Pace Maker Eval W/Iterative Adjment Dual Lead Completed 12/12/2018 53636 Pace Maker Eval W/Iterative Adjment Dual Lead Completed 10/27/2018 75289 Icd Eval Sing,Dual,Multi Lead Remote Recpt Transm Tech Completed Rev Tech S 10/27/2018 55854 Icd Eval Sing,Dual,Multi Lead Remote Recpt Transm Tech Completed Rev Tech S 10/27/2018 27838 Pacemaker Check Remote Up To 90Days Completed Single,Dual,Multiple Lead 10/27/2018 95745 Pacemaker Check Remote Up To 90Days Completed Single,Dual,Multiple Lead 10/07/2018 35120 Hysteroscopy, Surgical W/Biopsy Endometrium/Polpectomy Completed W/W/O D&C 10/07/2018 21074 Mastectomy Mod Radical Not Including Pectoralis Major Completed Muscle 10/07/2018 01659 Mastectomy Mod Radical Not Including Pectoralis Major Completed Muscle 09/20/2018 97418 EKG Tracing & Interpretation Completed 07/27/2018 [id number] Mammogram Completed Medical Devices Description No Information Available Encounters Type Date Location Provider Dx Diagnosis Office Visit 02/01/2019 [facility] Jennifer Phelps, I48.0 Paroxysmal atrial 2:30p 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 fibrillation I44.7 Left bundle-branch block, unspecified Z51.81 Encounter for therapeutic drug level monitoring Office Visit 01/09/2019 2:54p Shanthi Wooten I48.91 Unspecified atrial Cardiology Of AlfredoJeanaD. fibrillation Bundle Person Office Visit 01/08/2019 1:30p Jennifer Chaudhry. I48.0 Paroxysmal atrial Cardiology deepakgertrudisphill fibrillation M.D. 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 fibrillation J91.8 Pleural effusion in other conditions classified elsewhere Office Visit 01/06/2019 10:19a [facility] Luis Flores J96.01 Acute respiratory PA failure with hypoxia I48.91 Unspecified atrial fibrillation J90 Pleural effusion, not elsewhere classified I50.33 Acute on chronic diastolic (congestive) heart failure I11.0 Hypertensive heart disease with heart failure Office Visit 01/05/2019 10:19a [facility] Arsh Storey M.D. J98.11 Atelectasis I48.91 Unspecified atrial fibrillation D72.829 Elevated white blood cell count, unspecified R53.83 Other fatigue Office Visit 01/04/2019 10:18a [facility] Arsh Storey J18.9 Pneumonia, M.D. unspecified organism I48.91 Unspecified atrial fibrillation Office Visit 01/03/2019 10:17a [facility] Arsh Storey D72.829 Elevated white M.D. blood cell count, unspecified R00.0 Tachycardia, unspecified Office Visit 01/02/2019 10:16a [facility] Arsh Storey A41.81 Sepsis due to M.D. Enterococcus R65.21 Severe sepsis with septic shock J96.01 Acute respiratory failure with hypoxia J15.211 Pneumonia due to methicillin suscep staph Office Visit 01/01/2019 10:15a [facility] Lawrence Sanchez A41.81 Sepsis due to MD Enterococcus R65.21 Severe sepsis with septic shock J96.01 Acute respiratory failure with hypoxia N17.9 Acute kidney failure, unspecified D70.9 Neutropenia, unspecified R50.81 Fever presenting with conditions classified elsewhere J15.211 Pneumonia due to methicillin suscep staph D69.6 Thrombocytopenia, unspecified Office Visit 12/31/2018 10:15a [facility] Lawrence Sanchez A41.81 Sepsis due to Enterococcus R65.21 Severe sepsis with septic shock J96.01 Acute respiratory failure with hypoxia N17.9 Acute kidney failure, unspecified D70.9 Neutropenia, unspecified R50.81 Fever presenting with conditions classified elsewhere J15.211 Pneumonia due to methicillin suscep staph E87.1 Hypo-osmolality and hyponatremia Office Visit 12/30/2018 10:14a [facility] Lawrence Sanchez A41.81 Sepsis due to Enterococcus R65.21 Severe sepsis with septic shock J96.01 Acute respiratory failure with hypoxia N17.9 Acute kidney failure, unspecified D70.9 Neutropenia, unspecified R50.81 Fever presenting with conditions classified elsewhere J15.211 Pneumonia due to methicillin suscep staph E87.1 Hypo-osmolality and hyponatremia D69.6 Thrombocytopenia, unspecified Office Visit 12/29/2018 10:14a [facility] Lawrence Sanchez A41.81 Sepsis due to Enterococcus R65.21 Severe sepsis with septic shock J96.01 Acute respiratory failure with hypoxia N17.9 Acute kidney failure, unspecified J18.9 Pneumonia, unspecified organism D70.9 Neutropenia, unspecified D69.6 Thrombocytopenia, unspecified E87.1 Hypo-osmolality and hyponatremia Office Visit 12/28/2018 10:13a [facility] Lawrence Sanchez, N17.9 Acute kidney MD failure, unspecified J96.01 Acute respiratory failure with hypoxia R65.21 Severe sepsis with septic shock A41.9 Sepsis, unspecified organism D70.8 Other neutropenia R40.2430 Marialuisa coma scale score 3-8, unspecified time D69.6 Thrombocytopenia, unspecified E87.1 Hypo-osmolality and hyponatremia R35.0 Frequency of micturition Office Visit 12/28/2018 [facility] Florencia Dilnicko, E87.1 Hypo-osmolality and 3:50p Assoc,pc hyponatremia Hospitalists R50.81 Fever presenting with conditions classified elsewhere D70.9 Neutropenia, unspecified A41.9 Sepsis, unspecified organism R65.21 Severe sepsis with septic shock F05 Delirium due to known physiological condition I48.91 Unspecified atrial fibrillation Office Visit 12/27/2018 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 [place], of chilkoot coronary M.D. artery w/o ang pctrs I48.0 Paroxysmal atrial fibrillation I49.5 Sick sinus syndrome Z95.0 Presence of cardiac pacemaker I35.0 Nonrheumatic aortic (valve) stenosis I34.0 Nonrheumatic mitral (valve) insufficiency I50.32 Chronic diastolic (congestive) heart failure [facility] N84.0 Polyp of corpus 11:00a [facility] of Bundle Person MD David uteri Office Visit 09/20/2018 [facility] Milena Rose, Z01.810 Encounter for 12:00p Cardiology Of Bucky preprocedural [facility] cardiovascular examination C50.912 Malignant neoplasm of unspecified site of left female breast I50.32 Chronic diastolic (congestive) heart failure Z95.0 Presence of cardiac pacemaker I48.0 Paroxysmal atrial fibrillation I35.0 Nonrheumatic aortic (valve) stenosis I34.0 Nonrheumatic mitral (valve) insufficiency I44.7 Left bundle-branch block, unspecified Office Visit 09/01/2018 1:00p Surgical Kacy Fransisco N63.20 Unspecified lump [facility] Cain MD in the left breast, unspecified quadrant Assessments Date Code Description Provider 02/01/2019 R94.31 Abnormal electrocardiogram [ECG] Milena Rose M.D. [EKG] 02/01/2019 I48.0 Paroxysmal atrial fibrillation Jennifer Phelps NP 02/01/2019 I42.9 Cardiomyopathy, unspecified Jennifer Phelps NP 02/01/2019 Z79.899 Other salvage determiner (current) drug Jennifer Phelps NP therapy 02/01/2019 Z95.0 Presence of cardiac pacemaker Jennifer Phelps NP 01/18/2019 I48.0 Paroxysmal atrial fibrillation Milena Rose M.D. 01/18/2019 I44.7 Left bundle-branch block, unspecified Milena Rose M.D. 01/18/2019 Z51.81 Encounter for therapeutic drug level Milena Rose M.D. monitoring 01/09/2019 I48.91 Unspecified atrial fibrillation Ten Fuentes M.D. 01/08/2019 I48.0 Paroxysmal atrial fibrillation Gary Mcmullen M.D. 01/08/2019 I50.30 Unspecified diastolic (congestive) Gary Mcmullen M.D. 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 01/08/2019 I49.5 Sick sinus syndrome Gary Mcmullen M.D. 01/08/2019 Z95.0 Presence of cardiac pacemaker Gary Mcmullen M.D. 01/07/2019 I48.91 Unspecified atrial fibrillation Arsh Storey M.D. 01/07/2019 J91.8 Pleural effusion in other conditions Arsh Storey M.D. classified elsewhere 01/06/2019 J96.01 Acute respiratory failure with EULOGIO Lopez hypoxia 01/06/2019 I48.91 Unspecified atrial fibrillation EULOGIO Lopez 01/06/2019 J90 Pleural effusion, not elsewhere EULOGIO Lopez classified 01/06/2019 I50.33 Acute on chronic diastolic EULOGIO Lopez (congestive) heart failure 01/06/2019 I11.0 Hypertensive heart disease with heart EULOGIO Lopez failure 01/05/2019 J98.11 Atelectasis Arsh Storey M.D. 01/05/2019 I48.91 Unspecified atrial fibrillation Arsh Storey M.D. 01/05/2019 D72.829 Elevated white blood cell count, Arsh Storey M.D. unspecified 01/05/2019 R53.83 Other fatigue Arsh Storey M.D. 01/04/2019 J18.9 Pneumonia, unspecified organism Arsh Storey M.D. 01/04/2019 I48.91 Unspecified atrial fibrillation Arsh Storey M.D. 01/03/2019 D72.829 Elevated white blood cell count, Arsh Storey M.D. unspecified 01/03/2019 R00.0 Tachycardia, unspecified Arsh Storey M.D. 01/02/2019 A41.81 Sepsis due to Enterococcus Arsh Storey M.D. 01/02/2019 R65.21 Severe sepsis with septic shock Arsh Storey M.D. 01/02/2019 J96.01 Acute respiratory failure with Arsh Storey M.D. hypoxia 01/02/2019 J15.211 Pneumonia due to methicillin suscep Arsh Storey M.D. stap 01/01/2019 A41.81 Sepsis due to Nakul Sanchez MD 01/01/2019 R65.21 Severe sepsis with septic shock Lwarence Sanchez MD 01/01/2019 J96.01 Acute respiratory failure with Lawrence Sanchez MD hypoxia 01/01/2019 N17.9 Acute kidney failure, unspecified Lawrence Sanchez MD 01/01/2019 D70.9 Neutropenia, unspecified Lawrence Sanchez MD 01/01/2019 R50.81 Fever presenting with conditions Lawrence Sanchez MD classified elsewhere 01/01/2019 J15.211 Pneumonia due to methicillin suscep Lawrence Sanchez MD formerly [facility] 01/01/2019 D69.6 Thrombocytopenia, unspecified Lawrence Sanchez MD 12/31/2018 A41.81 Sepsis due to Enterococcus Lawrence Sanchez MD 12/31/2018 R65.21 Severe sepsis with septic shock Lawrence Sanchez MD 12/31/2018 J96.01 Acute respiratory failure with Lawrence Sanchez MD hypoxia 12/31/2018 N17.9 Acute kidney failure, unspecified Lawrence Sanchez MD 12/31/2018 D70.9 Neutropenia, unspecified Lawrence Sanchez MD 12/31/2018 R50.81 Fever presenting with conditions Lawrence Sanchez MD classified elsewhere 12/31/2018 J15.211 Pneumonia due to methicillin suscep Lawrence Sanchez MD formerly [facility] 12/31/2018 E87.1 Hypo-osmolality and hyponatremia Lawrence Sanchez MD 12/30/2018 A41.81 Sepsis due to Enterococcus Lawrence Sanchez MD 12/30/2018 R78.81 Bacteremia Real Storey, DO [facility] 12/30/2018 R65.21 Severe sepsis with septic shock Lawrence Sanchez MD 12/30/2018 J96.01 Acute respiratory failure with Lawrence Sanchez MD hypoxia 12/30/2018 N17.9 Acute kidney failure, unspecified Lawrence Sanchez MD 12/30/2018 D70.9 Neutropenia, unspecified Lawrence Sanchez MD 12/30/2018 R50.81 Fever presenting with conditions Lawrence Sanchez MD classified elsewhere 12/30/2018 J15.211 Pneumonia due to methicillin suscep Lawrence Sanchez MD formerly [facility] 12/30/2018 E87.1 Hypo-osmolality and hyponatremia Lawrence Sanchez MD 12/30/2018 D69.6 Thrombocytopenia, unspecified Lawrence Sanchez MD 12/29/2018 A41.81 Sepsis due to Enterococcus Lawrence Sanchez MD 12/29/2018 R65.21 Severe sepsis with septic shock Lawrence Sanchez MD 12/29/2018 J96.01 Acute respiratory failure with Lawrence Sanchez MD hypoxia 12/29/2018 N17.9 Acute kidney failure, unspecified Lawrence Sanchez MD 12/29/2018 J18.9 Pneumonia, unspecified organism Lawrence Sanchez MD 12/29/2018 D70.9 Neutropenia, unspecified Lawrence Sanchez MD 12/29/2018 D69.6 Thrombocytopenia, unspecified Lawrence Sanchez MD 12/29/2018 E87.1 Hypo-osmolality and hyponatremia Lawrence Sanchez MD 12/28/2018 R65.21 Severe sepsis with septic shock Lawrence Sanchez MD 12/28/2018 J96.01 Acute respiratory failure with Lawrence Sanchez MD hypoxia 12/28/2018 N17.9 Acute kidney failure, ronnellified Lawrence Sanchez MD 12/28/2018 A41.9 Sepsis, unspecified organism Lawrence Sanchez MD 12/28/2018 D70.8 Other neutropenia Lawrence Sanchez MD 12/28/2018 E87.1 Hypo-osmolality and hyponatremia Florencia Mendez MD 12/28/2018 R40.2430 [place] coma scale score 3-8, Lawrence Sanchez MD unspecified time 12/28/2018 D69.6 Thrombocytopenia, unspecified Lawrence Sanchez MD 12/28/2018 E87.1 Hypo-osmolality and hyponatremia Lawrence Sanchez MD 12/28/2018 R50.81 Fever presenting with conditions Florencia Mendez MD classified elsewhere 12/28/2018 D70.9 Neutropenia, unspecified Florencia Mendez MD 12/28/2018 R35.0 Frequency of micturition Lawrence Sanchez MD 12/28/2018 A41.9 Sepsis, unspecified organism Florencia Mendez MD 12/28/2018 R65.21 Severe sepsis with septic shock Florencia Mendez MD 12/28/2018 F05 Delirium due to known physiological Florencia Mendez MD condition 12/28/2018 I48.91 Unspecified atrial fibrillation Florencia Mendez MD 12/27/2018 E87.1 Hypo-osmolality and hyponatremia Florencia Mendez MD 12/12/2018 Z95.0 Presence of cardiac pacemaker Milena Rose M.D. 12/12/2018 Z95.0 Presence of cardiac pacemaker Ica Pacer Schedule 12/12/2018 I49.5 Sick sinus syndrome Ica Pacer Schedule 12/01/2018 B37.9 Candidiasis, unspecified Kacy Cain MD 12/01/2018 C50.912 Malignant neoplasm of unspecified Kacy Cain MD site of left female breast 11/24/2018 B37.9 Candidiasis, unspecified Kacy Cain MD 11/22/2018 B37.9 Candidiasis, unspecified Kenan Nguyen M.D. 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 11/04/2018 I49.5 Sick sinus syndrome Milena Rose M.D. 11/04/2018 Z95.0 Presence of cardiac pacemaker Milena Rose M.D. 11/04/2018 I35.0 Nonrheumatic aortic (valve) stenosis Milena Rose M.D. 11/04/2018 I34.0 Nonrheumatic mitral (valve) Milena Rose M.D. insufficiency 11/04/2018 I50.32 Chronic diastolic (congestive) heart Milena Rose M.D. failure 11/03/2018 L76.34 Postprocedural seroma of skin and Kacy Cain MD subcutaneous tissue follow 10/31/2018 C50.912 Malignant neoplasm of unspecified Christopher L. Dakotah, PA site of left female breast 10/31/2018 L76.34 Postprocedural seroma of skin and EULOGIO Roberts subcutaneous tissue follow 10/27/2018 Z95.0 Presence of cardiac pacemaker Milena Rose M.D. 10/27/2018 Z95.0 Presence of cardiac pacemaker Remote Device Checks 10/27/2018 I49.5 Sick sinus syndrome Milena Rose M.D. 10/27/2018 I49.5 Sick sinus syndrome Remote Device Checks 10/26/2018 C50.912 Malignant neoplasm of unspecified Domonique Moody MD site of left female breast 10/21/2018 N84.0 Polyp of corpus uteri Raffy Hernandez MD 10/20/2018 C50.912 Malignant neoplasm of unspecified Christopher L. Claire, PA site of left female breast 10/13/2018 C50.912 Malignant neoplasm of unspecified Christopher L. Claire, PA site of left female breast 10/13/2018 C50.912 Malignant neoplasm of unspecified Christopher L. Claire, PA site of left female breast 10/12/2018 C50.912 Malignant neoplasm of unspecified Ann Marie Vu NP site of left female breast 10/11/2018 C50.912 Malignant neoplasm of unspecified Kacy Cain MD site of left female breast 10/10/2018 C50.912 Malignant neoplasm of unspecified Ann Marie Vu NP site of left female breast 10/09/2018 C50.912 Malignant neoplasm of unspecified Michel Carrillo MD, FACS site of left female breast 10/08/2018 C50.912 Malignant neoplasm of unspecified Kacy Cain MD site of left female breast 10/07/2018 N95.0 Postmenopausal bleeding Raffy Hernandez MD 10/07/2018 C50.912 Malignant neoplasm of unspecified Ann Marie Brandt Mirella , INVESTOR RELATIONS MANAGER site of left female breast 10/07/2018 N84.0 Polyp of corpus uteri Raffy Hernandez MD 10/07/2018 C50.912 Malignant neoplasm of unspecified Kacy Cain MD site of left female breast 10/04/2018 N95.0 Postmenopausal bleeding Raffy Hernandez MD 10/04/2018 R93.89 Abnormal findings on diagnostic Raffy Hernandez MD imaging of other specified body structures 09/23/2018 C50.912 Malignant neoplasm of unspecified EULOGIO Roberts site of left female breast 09/23/2018 Z01.818 Encounter for other preprocedural EULOGIO Roberts examination 09/20/2018 Z01.810 Encounter for preprocedural Milena Rose M.D. cardiovascular examination 09/20/2018 C50.912 Malignant neoplasm of unspecified Milena Rose M.D. site of left female breast 09/20/2018 I50.32 Chronic diastolic (congestive) heart Milena Rose M.D. failure 09/20/2018 Z95.0 Presence of cardiac pacemaker Milena Rose M.D. 09/20/2018 I48.0 Paroxysmal atrial fibrillation Milena Rose M.D. 09/20/2018 I35.0 Nonrheumatic aortic (valve) stenosis Milena Rose M.D. 09/20/2018 I34.0 Nonrheumatic mitral (valve) Milena Rose M.D. insufficiency 09/20/2018 I44.7 Left bundle-branch block, unspecified Milena Rose M.D. 09/01/2018 N63.20 Unspecified lump in the left breast, Kacy Cain MD unspecified quadrant Plan of Treatment Future Appointment(s):04/03/2019 6:20 am - Remote Device Checks at [facility]02/01/2019 - Jennifer Thuman, NPI48.0 Paroxysmal atrial fibrillationRecommendations:Please go home and do manual pacemaker down load.I42.9 Cardiomyopathy, unspecifiedFollow up:follow up with Dr. Rose in 3 weeks.Recommendations:Please reduce Torsemide to 10mg by mouth daily. Only take 1/2 tablet by mouth daily.Z79.899 Other fci (current) drug ipezuirG89.0 Presence of cardiac pacemaker Functional Status Description No Information Available Mental Status Description No Information Available Referrals Refer to Reason for Referral Status Appt Date Milena Rose MD Closed 09/20/[address] [place] [address] [phone]
--- OUTSIDE RECORDS SUMMARY | 2019-04-19 17:27 | XMS REPORT | Continuity of Care Document ---
:1955 External Reference #:[id number] Author Name Milena Rose M.D. (transmitted by agent of provider Sasha Gatica) Address [facility] [place] [address] Care Team Providers Name Role Phone Milena Rose MD - Cardiovascular Care Team Information [place] Disease Nikolai Deluca MD - Family Medicine Care Team Information [place] [phone] Problems Active Problems Provider Date Atrial flutter [...] heart failure Milena Rose M.D. Onset: 11/04/2018 Congestive heart failure due to cardiomyopathy Milena Rose M.D. Onset: Social History Type Date Description Comments Sex Unknown Cigarette Use Quit 12 Years Ago 2006 Smokeless Tobacco Never Used Smokeless Tobacco ETOH Use Rarely consumes alcohol Tobacco Use Start: Unknown Patient is a former hx 1 pack cigarettes End: smoker per day Recreational Drug Use Denies Drug Use Tobacco Use Start: Unknown Medical Marijuana used for chemotherapy, not current Smoking Status Reviewed: 02/24/19 Medical Marijuana used for chemotherapy, not current [...] as directed 60gm Kenan Nguyen, 11/22/2018 2% M.D. Cream Nystatin apply as directed 1units Kacy [...] mcg/Act times a day as Aerosol needed [place] 3-6-9 1 cap po once Unknown 1200mg [...] Tablets Xarelto 1 po qd 30tabs Nikolai Deluca, 20mg Tablets MD History Medications Monistat 4% Cream apply to skin as Kenan Nguyen, 11/22/2018 - galilea Lawler Unknown Oxycodone-Acetami 1--2 tab by mouth 12tabs C50.912 Kacy Cain, 2018 - nophen every 4- 6 hours Unknown 5-325mg as needed for Tablets pain Nystatin topically twice a 30units Kacy Cain, 09/23/2018 - day to the skin Unknown [id number]/GM around the wound Cream as needed Oxycodone-Acetami 1 tab by mouth 8tabs Ann Marie BJudi 09/23/2018 - nophen every 6 hours as VIVIAN Vu Unknown 5-325mg needed for pain Tablets Immunizations Description No Information Available Vital Signs Date Vital Result Comment 02/24/2019 4:15pm Height 66 inches 5'6" Weight 157.00 lb with shoes Heart Rate 84 /min right radial BP Systolic Sitting 124 mmHg ure, reg cuff BP Diastolic Sitting 74 mmHg ure, reg cuff BP Systolic Standing 120 mmHg ure, reg cuff BP Diastolic Standing 72 mmHg ure, reg cuff BMI (Body Mass Index) 25.3 kg/m2 Ejection Fraction 55-60% echo 12/30/18 02/01/2019 2:22pm Height 66 inches 5'6" Weight 153.50 lb with shoes Heart Rate 76 /min left radial BP Systolic Sitting 122 mmHg ure, reg cuff BP Diastolic Sitting 78 mmHg ure, reg cuff BMI (Body Mass Index) 24.8 kg/m2 Ejection Fraction 55-60%, pc echo 12/30/18 Results Test Date Facility Test Result H/L Range Note Laboratory test 02/08/2019 [facility] Magnesium 2.1 mg/dL Normal 1.9-2.[address] [place] [address] [phone] CBC Auto Diff 12/21/2018 [facility] White Blood 8.6 10^3/uL Normal 3.5-10.[address] [place] [address] [phone] Red Blood Count 5.25 10^6/uL High 3.70-4.87 [...] Cells % 0.1 Comp Metabolic Panel 12/21/2018 [facility] Sodium 133 mmol/L Low 135-145 [address] [place] [address] [phone] Potassium 4.6 mmol/L Normal 3.5-5.0 Chloride 94 [...] Egfr 89.2 >60 1 Basic Metabolic 11/17/2018 [facility] Sodium 137 mmol/L Normal 135-145 Panel [address] [place] [address] [phone] Potassium 4.6 mmol/L Normal 3.5-5.0 Chloride 96 mmol/L Low 101-111 Co2 Carbon Dioxide 33 mmol/L High 22-32 Anion Gap 8 mmol/L Normal 2-11 Glucose 138 mg/dL High 70-100 Blood Urea Nitrogen 34 mg/dL High 6-24 Creatinine 0.96 mg/dL High 0.51-0.95 BUN/Creatinine Ratio 35.4 High 8-20 Calcium 9.9 mg/dL Normal 8.6-10.3 Egfr Non- 58.9 >60 Egfr 71.3 >60 2 Laboratory test 11/17/2018 [facility] Magnesium 2.3 mg/dL Normal 1.9-2.7 3 finding [address] [place] [address] [phone] CBC Auto Diff 09/23/2018 [facility] White Blood 6.2 Normal 3.5 -10.8 [address] [facility] Count 10^3/[place] [address] [phone] Red Blood Count 4.62 10^6/uL Normal 3.70-4.87 [...] Blood Cells % 0.1 Basic Metabolic 09/23/2018 [facility] Sodium 133 mmol/L Low 135-145 Panel [address] [place] [address] [phone] Potassium 4.5 mmol/L Normal 3.5-5.0 Chloride 95 mmol/L Low 101-111 Co2 Carbon Dioxide 32 mmol/L Normal 22-32 Anion Gap 6 mmol/L Normal 2-11 Glucose 107 mg/dL High 70-100 Blood Urea Nitrogen 31 mg/dL High 6-24 Creatinine 0.83 mg/dL Normal 0.51-0.95 BUN/Creatinine Ratio 37.3 High 8-20 Calcium 9.8 mg/dL Normal 8.6-10.3 Egfr Non- 69.9 >60 Egfr 84.6 >60 4 Type & Screen 09/23/2018 [facility] Patient Blood Type B Positive [address] [place] [address] [phone] Antibody Screen NEGATIVE 1 Because ethnic data is not always [...] dialysis) 3 May Copy Result to: NIKOLAI DELUCA ([id number]) 4 Because ethnic data is not always [...] dialysis) Procedures Date Code Description Status 02/01/2019 45097 EKG Tracing & Interpretation Completed 12/30/2018 37254 ECHO Transthorasic Realtime 2D W Doppler & Color Flow Completed Hosp 12/29/2018 57269 Arterial Line Completed 12/28/2018 17439 Insert Non-Tunneled Venous Catether Completed 12/12/2018 78037 Pace Maker Eval W/Iterative Adjment Dual Lead Completed 12/12/2018 71249 Pace Maker Eval W/Iterative Adjment Dual Lead Completed 10/27/2018 88277 Icd Eval Sing,Dual,Multi Lead Remote Recpt Transm Tech Completed Rev Tech S 10/27/2018 04601 Icd Eval Sing,Dual,Multi Lead Remote Recpt Transm Tech Completed Rev Tech S 10/27/2018 18388 Pacemaker Check Remote Up To 90Days Completed Single,Dual,Multiple Lead 10/27/2018 59837 Pacemaker Check Remote Up To 90Days Completed Single,Dual,Multiple Lead 10/07/2018 11389 Hysteroscopy, Surgical W/Biopsy Endometrium/Polpectomy Completed W/W/O D&C 10/07/2018 01190 Mastectomy Mod Radical Not Including Pectoralis Major Completed Muscle 10/07/2018 02309 Mastectomy Mod Radical Not Including Pectoralis Major Completed Muscle 09/20/2018 30678 EKG Tracing & Interpretation Completed 07/27/2018 41637791 Mammogram Completed Medical Devices Description No Information Available Encounters Type Date Location Provider Dx Diagnosis Office Visit 02/01/2019 [facility] Jennifer Phelps, I48.0 Paroxysmal atrial 2:30p FLATWORK FINISHER fibrillation I42.9 Cardiomyopathy, unspecified 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 fibrillation Clinical Therapist Office Visit 01/08/2019 1:30p [facility] Gary Dowling I48.0 Paroxysmal atrial Cardiology juan pablo Mcmullen.DJudi I50.30 Unspecified diastolic (congestive) heart failure I25.10 Athscl heart disease [place] coronary artery w/o ang pctrs I44.7 Left [...] Intensivists Arsh Storey A41.81 Sepsis due to M.DJudi Enterococcus R65.21 Severe sepsis with septic shock [...] Sepsis, unspecified organism D70.8 Other neutropenia R40.2430 Lookout coma scale score 3-8, unspecified time D69.6 Thrombocytopenia, unspecified E87.1 Hypo-osmolality and hyponatremia R35.0 Frequency of micturition Office Visit 12/28/2018 [facility] Florencia Mendez, E87.1 Hypo-osmolality and 3:50p Assoc,pc hyponatremia Hospitalists R50.81 Fever presenting with conditions classified elsewhere D70.9 Neutropenia, unspecified A41.9 Sepsis, unspecified organism R65.21 Severe sepsis with septic shock F05 Delirium due to known physiological condition I48.91 Unspecified atrial fibrillation Office Visit 12/27/2018 [facility] Florencia Mendez, E87.1 Hypo-osmolality and 3:49p Assoc,pc hyponatremia Hospitalists Office Visit 11/04/2018 [facility] Milena I25.10 Athscl heart disease 11:20a Of Clinical Therapist [facility] [place], of [place] coronary M.D. artery w/o ang pctrs I48.0 Paroxysmal atrial fibrillation I49.5 Sick sinus syndrome Z95.0 Presence of cardiac pacemaker I35.0 Nonrheumatic aortic (valve) stenosis I34.0 Nonrheumatic mitral (valve) insufficiency I50.32 Chronic diastolic (congestive) heart failure Office Visit 10/21/2018 [facility] Dvora N84.0 Polyp of corpus 11:00a [facility] Hernandez MD uteri Office Visit 09/20/2018 [place] Milena Rose, Z01.810 Encounter for 12:00p [facility] [place] preprocedural [facility] cardiovascular examination C50.912 Malignant neoplasm of unspecified [...] unspecified quadrant Assessments Date Code Description Provider 02/24/2019 I48.0 Paroxysmal atrial fibrillation Milena Rose M.D. 02/24/2019 I42.9 Cardiomyopathy, unspecified Milena Rose M.D. 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 02/24/2019 I44.7 Left bundle-branch block, unspecified Milena Rose M.D. 02/24/2019 Z95.0 Presence of cardiac pacemaker Milena Rose M.D. 02/24/2019 F41.9 Anxiety disorder, unspecified Milena Rose M.D. 02/24/2019 I50.32 Chronic diastolic (congestive) heart Milena Rose M.D. failure 02/24/2019 E87.1 Hypo-osmolality and hyponatremia Milena Rose M.D. 02/01/2019 R94.31 Abnormal electrocardiogram [ECG] Milena Rose M.D. 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 01/18/2019 I44.7 Left bundle-branch block, unspecified Milena Rsoe M.D. 01/18/2019 Z51.81 Encounter for therapeutic drug level Milena Rose M.D. monitoring 01/09/2019 I48.91 Unspecified atrial fibrillation Ten Fuentes M.D. 01/08/2019 I48.0 Paroxysmal atrial fibrillation Gary Mcmullen M.D. 01/08/2019 I50.30 Unspecified diastolic (congestive) Gary Mcmullen M.D. heart failure 01/08/2019 I25.10 Athscl heart disease of [place] Gary Mcmullen M.D. coronary artery w/o ang [...] due to methicillin suscep Arsh Storey M.D. staph 01/01/2019 A41.81 Sepsis due to Enterococcus Lawrence Sanchez MD 01/01/2019 R65.21 Severe sepsis with septic shock Lawrence Sanchez MD 01/01/2019 J96.01 Acute respiratory failure with Lawrence Sanchez MD hypoxia 01/01/2019 N17.9 Acute kidney failure, unspecified Lawrence Sanchez MD 01/01/2019 D70.9 Neutropenia, unspecified Lawrence Sanchez MD 01/01/2019 R50.81 Fever presenting with conditions Lawrence Sanchez MD classified elsewhere 01/01/2019 J15.211 Pneumonia due to methicillin susulisses Sanchez MD staph 01/01/2019 D69.6 Thrombocytopenia, unspecified Lawrence Sanchez MD [...] due to methicillin suscep Lawrence Sanchez MD [facility] 12/31/2018 E87.1 Hypo-osmolality and hyponatremia Lawrence Sanchez MD 12/30/2018 A41.81 Sepsis due to Enterococcus Lawrence Sanchez MD 12/30/2018 R78.81 Bacteremia Real Storey, DO [facility] 12/30/2018 R65.21 Severe sepsis with septic shock Lawrence Sanchez MD 12/30/2018 J96.01 Acute respiratory failure with Lawrence Sanchez MD hypoxia 12/30/2018 N17.9 Acute kidney failure, unspecified Lawrence Sanchez MD 12/30/2018 D70.9 Neutropenia, unspecified Lawrence Sanchez MD 12/30/2018 R50.81 Fever presenting with conditions Lawrence Sanchez MD classified elsewhere 12/30/2018 J15.211 Pneumonia due to methicillin suscep Lawrence Sanchez MD [facility] 12/30/2018 E87.1 Hypo-osmolality and hyponatremia Lawrence Sanchez [...] MD hypoxia 12/28/2018 N17.9 Acute kidney failure, unspecified Lawrence Sanchez MD 12/28/2018 A41.9 Sepsis, unspecified organism Lawrence Sanchez MD 12/28/2018 D70.8 Other neutropenia Lawrence Sanchez MD 12/28/2018 E87.1 Hypo-osmolality and hyponatremia Florencia Mendez MD 12/28/2018 R40.2430 Lookout coma scale score 3-8, Lawrence Sanchez MD [...] left female breast 11/24/2018 B37.9 Candidiasis, unspecified Kcay Cain MD 11/22/2018 B37.9 Candidiasis, unspecified Kenan Nguyen M.D. 11/10/2018 B37.9 Candidiasis, unspecified Kacy Cain MD 11/04/2018 I25.10 Atherosclerotic heart disease of Milena Rose M.D. [place] coronary artery with 11/04/2018 I48.0 Paroxysmal atrial [...] 10/31/2018 C50.912 Malignant neoplasm of unspecified Christopher Susan Claire, PA site of left female breast 10/31/2018 L76.34 Postprocedural seroma of skin and Chris Claire, PA subcutaneous tissue follow 10/27/2018 Z95.0 Presence of [...] C50.912 Malignant neoplasm of unspecified Ann Marie BJudi Vu , FLATWORK FINISHER site of left female breast 10/09/2018 C50.912 Malignant neoplasm of unspecified Michel Carrillo MD, FACS site of left female breast 10/08/2018 C50.912 Malignant neoplasm of unspecified Kayc Cain MD site of left female breast 10/07/2018 N95.0 Postmenopausal bleeding Raffy Hernandez MD 10/07/2018 C50.912 Malignant neoplasm of unspecified Ann Marie Karly Vu , FLATWORK FINISHER site of left female breast 10/07/2018 N84.0 [...] 6:20 am - Remote Device Checks at [facility]02/24/2019 - Milena Rose M.D.I48.0 Paroxysmal atrial fibrillationComments:You have had some breakthrough atrial fibrillation on the download WednesdayFollow up:OV 3 months.I42.9 Cardiomyopathy, xsgacnwvgkmA24.10 Atherosclerotic heart disease of [place] coronary artery without angina wnrpcjmoS16.5 Sick sinus krqqrjboX93.7 Left bundle-branch block, bvcqovauduiA91.0 Presence of cardiac pacemakerComments:Your pacemaker is working well.F41.9 Anxiety disorder, unspecifiedComments:Follow up with Dr Deluca on potential for withdrawal from Klonopin and options.Recommendations: OK on my end to resume Klonopin 1/2 tab as per other practioners recommendations.I50.32 Chronic diastolic (congestive) heart failureComments:You have fluid in the right lung, legs, left arm and your weight is a but upFollow up:OV next week FLATWORK FINISHER, pt requests [place] [facility] if able.Recommendations:Take a full torsemide Wednesday and Wednesday, then go back to 1/2 tab daily.E87.1 Hypo- osmolality and hyponatremia Functional Status Description No Information Available Mental Status Description No Information Available Referrals Refer to Reason for Referral Status Appt Date Milena Rose MD Closed 09/20/[address] [place] [address] [phone]
--- OUTSIDE RECORDS SUMMARY | 2019-04-19 17:27 | XMS REPORT | Continuity of Care Document ---
:1955 External Reference #:[id number] Author Name Jennifer Phelps NP (transmitted by agent of provider Meme Bergeron) Address [address] [place] [address] Care Team Providers Name Role Phone Milena Rose MD - Cardiovascular Care Team Information Pipe Bender Disease Nikolai Chirinos MD - Family Medicine Care Team Information Pipe Bender Problems Active Problems Provider Date Atrial flutter [...] History Type Date Description Comments Sex Unknown Smokeless Tobacco Never Used Smokeless Tobacco ETOH Use Rarely consumes alcohol Tobacco Use Start: Unknown Patient is a former 1 pack cigarettes per End: Unknown smoker day from age [age] Quit at age 25 Restarted at age 37, 5 cigarettes daily Quit 2006 Recreational Drug Use Denies Drug Use Tobacco Use Start: Unknown Medical Marijuana not currently using. Last use 01/27 Smoking Status Reviewed: 03/02/19 Medical Marijuana not currently using. Last use 01/27 Exercise Type/Frequency Exercises sporadically Allergies, Adverse Reactions, [...] Kacy Cain, 09/23/2018 Powder to affected area MD neri Mucinex 1 by mouth twice Unknown 600mg Tablets a day ER 12HR Atrovent HFA 1 puff twice a Unknown 17mcg/Act day Aerosol Oxycodone HCL 1 tabs by mouth Unknown 5mg every 4-6 hours Tablets as needed Torsemide 1 /2 tablet by Daisha Zamora, 20mg Tablets mouth every day M.D. Metoprolol Tartrate 1 by mouth twice Milena Rose, a day M.D. 25mg Tablets Acetaminophen ER 1 tab by mouth q4 Unknown 650mg hours as needed Tablets ER pain Magnesium-Oxide 1 cap by mouth Unknown daily 400(241.3mg) mg Tablets Buspirone HCL Take 1 by mouth Unknown 5mg three times a day Tablets (patient states she is not currently using) Ventolin HFA 2 puffs Unknown inhalation four 108(90Base) mcg/Act times a day as Aerosol needed Doran 3-6-9 1 cap po once Unknown 1200mg daily (1000mg) Capsules Ranitidine HCL 1 po qd 180tabs Unknown 150mg Tablets Acidophilus/Bifidus 1 capsules by Unknown mouth twice daily 100mg Capsule Vitamin D3 1 capsule by Unknown 400Unit mouth every other Capsules day Co Q 10 1 po qd Unknown 100mg Capsules Vitamin B-Complex 1 po qd 30tabs Unknown Tablets Vitamin C 1 po qd Unknown 1000mg Capsules Manoj-Mag 2 soft gel by Unknown Soft Gel mouth twice daily Levothyroxine Sodium 1 po qd [...] 09/23/2018 - day to the skin Unknown [id number]/GM around the wound Cream as needed Oxycodone-Acetami 1 tab by mouth 8tabs Ann Marie BJudi 09/23/2018 - nophen every 6 hours as VIVIAN Vu Unknown 5-325mg needed for pain Tablets Immunizations Description No Information Available Vital Signs Date Vital Result Comment 03/02/2019 12:16pm Height 66 inches 5'6" Weight 153.00 lb with shoes/clothes Heart Rate 74 /min radial, regular BP Systolic Sitting 108 mmHg Ra, reg cuff BP Diastolic Sitting 58 mmHg Ra, reg cuff BP Systolic Standing 106 mmHg Ra, reg cuff BP Diastolic Standing 60 mmHg Ra, reg cuff BMI (Body Mass Index) 24.7 kg/m2 Ejection Fraction 55%-60% echo 12/30/18 02/24/2019 4:15pm Height 66 inches 5'6" Weight 157.00 lb with shoes Heart Rate 84 /min right radial BP Systolic Sitting 124 mmHg ure, reg cuff BP Diastolic Sitting 74 mmHg ure, reg cuff BP Systolic Standing 120 mmHg ure, reg cuff BP Diastolic Standing 72 mmHg ure, reg cuff BMI (Body Mass Index) 25.3 kg/m2 Ejection Fraction 55-60% echo 12/30/18 Results Test Date Facility Test Result H/L Range Note Laboratory test 02/08/2019 [facility] Magnesium 2.1 mg/dL Normal 1.9-2.[address] [place] [address] [phone] CBC Auto Diff 12/21/2018 [facility] White Blood 8.6 10^3/uL Normal 3.5-10.[address] [place] [address] [phone] Red Blood Count 5.25 10^6/uL High 3.70-4.87 [...] Cells % 0.1 Comp Metabolic Panel 12/21/2018 [facility] Sodium 133 mmol/L Low 135-[address] [place] [address] [phone] Potassium 4.6 mmol/L Normal 3.5-5.0 Chloride 94 [...] Egfr 89.2 >60 1 Basic Metabolic 11/17/2018 [facility] Sodium 137 mmol/L Normal 135-145 Panel [address] [place] [address] [phone] Potassium 4.6 mmol/L Normal 3.5-5.0 Chloride 96 mmol/L Low 101-111 Co2 Carbon Dioxide 33 mmol/L High 22-32 Anion Gap 8 mmol/L Normal 2-11 Glucose 138 mg/dL High 70-100 Blood Urea Nitrogen 34 mg/dL High 6-24 Creatinine 0.96 mg/dL High 0.51-0.95 BUN/Creatinine Ratio 35.4 High 8-20 Calcium 9.9 mg/dL Normal 8.6-10.3 Egfr Non- 58.9 >60 Egfr 71.3 >60 2 Laboratory test 11/17/2018 [facility] Magnesium 2.3 mg/dL Normal 1.9-2.[address] [place] [address] [phone] CBC Auto Diff 09/23/2018 [facility] White Blood 6.2 Normal 3.5 -10.[address] Count 10^3/[place] [address] [phone] Red Blood Count 4.62 10^6/uL Normal 3.70-4.87 [...] Blood Cells % 0.1 Basic Metabolic 09/23/2018 [facility] Sodium 133 mmol/L Low 135-145 Panel [address] [place] [address] [phone] Potassium 4.5 mmol/L Normal 3.5-5.0 Chloride 95 mmol/L Low 101-111 Co2 Carbon Dioxide 32 mmol/L Normal 22-32 Anion Gap 6 mmol/L Normal 2-11 Glucose 107 mg/dL High 70-100 Blood Urea Nitrogen 31 mg/dL High 6-24 Creatinine 0.83 mg/dL Normal 0.51-0.95 BUN/Creatinine Ratio 37.3 High 8-20 Calcium 9.8 mg/dL Normal 8.6-10.3 Egfr Non- 69.9 >60 Egfr 84.6 >60 4 Type & Screen 09/23/2018 [facility] Patient Blood Type B Positive [address] [place] [address] [phone] Antibody Screen NEGATIVE 1 Because ethnic data [...] 3 May Copy Result to: NIKOLAI CHIRINOS ([id number]) 4 Because ethnic data is not always [...] dialysis) Procedures Date Code Description Status 02/01/2019 37008 EKG Tracing & Interpretation Completed 12/30/2018 24416 ECHO Transthorasic Realtime 2D W Doppler & Color Flow Completed Hosp 12/29/2018 44850 Arterial Line Completed 12/28/2018 93599 Insert Non-Tunneled Venous Catether Completed 12/12/2018 52686 Pace Maker Eval W/Iterative Adjment Dual Lead Completed 12/12/2018 92645 Pace Maker Eval W/Iterative Adjment Dual Lead Completed 10/27/2018 67601 Icd Eval Sing,Dual,Multi Lead Remote Recpt Transm Tech Completed Rev Tech S 10/27/2018 06549 Icd Eval Sing,Dual,Multi Lead Remote Recpt Transm Tech Completed Rev Tech S 10/27/2018 41842 Pacemaker Check Remote Up To 90Days Completed Single,Dual,Multiple Lead 10/27/2018 52197 Pacemaker Check Remote Up To 90Days Completed Single,Dual,Multiple Lead 10/07/2018 01277 Hysteroscopy, Surgical W/Biopsy Endometrium/Polpectomy Completed W/W/O D&C 10/07/2018 19326 Mastectomy Mod Radical Not Including Pectoralis Major Completed Muscle 10/07/2018 72282 Mastectomy Mod Radical Not Including Pectoralis Major Completed Muscle 09/20/2018 41425 EKG Tracing & Interpretation Completed 07/27/2018 [id number] Mammogram Completed Medical Devices Description No Information Available Encounters Type Date Location Provider Dx Diagnosis Office Visit 02/01/2019 [facility] Jennifer Phelps, I48.0 Paroxysmal atrial 2:30p FINANCIAL ANALYST fibrillation I42.9 Cardiomyopathy, unspecified Z79.899 Other nursing home (current) drug therapy Z95.0 Presence of cardiac pacemaker Office Visit 01/18/2019 11:37a [facility] Milena Rose I48.0 Paroxysmal atrial Of Rhys Lawler fibrillation I44.7 Left bundle-branch block, unspecified Z51.81 Encounter for therapeutic drug level monitoring Office Visit 01/09/2019 2:54p Shanthi Wooten I48.91 Unspecified atrial Cardiology Of [facility] Fuentes fibrillation Registered Dental Assistant Office Visit 01/08/2019 1:30p Jennifer Vega S. I48.0 Paroxysmal atrial Cardiology Mag[place]ah, fibrillation M.D. I50.30 Unspecified diastolic (congestive) heart failure I25.10 Athscl heart disease of [place] coronary artery w/o ang pctrs I44.7 Left [...] fibrillation Office Visit 01/03/2019 10:17a [facility] Arsh tSorey D72.829 Elevated white M.D. blood cell count, unspecified R00.0 Tachycardia, unspecified Office Visit 01/02/2019 10:16a [facility] Arsh Storey A41.81 Sepsis due to M.D. Enterococcus R65.21 Severe sepsis with septic shock J96.01 Acute respiratory failure with hypoxia J15.211 Pneumonia due to methicillin suscep staph Office Visit 01/01/2019 10:15a [facility] Anais Keller1.81 Sepsis due to MD Enterococcus R65.21 Severe sepsis with septic shock J96.01 Acute respiratory failure with hypoxia N17.9 Acute kidney failure, unspecified D70.9 Neutropenia, unspecified R50.81 Fever presenting with conditions classified elsewhere J15.211 Pneumonia due to methicillin suscep staph D69.6 Thrombocytopenia, unspecified Office Visit 12/31/2018 10:15a [facility] Lawrence Rana, A41.81 Sepsis due to Enterococcus R65.21 Severe sepsis with septic shock J96.01 Acute respiratory failure with hypoxia N17.9 Acute kidney failure, unspecified D70.9 Neutropenia, unspecified R50.81 Fever presenting with conditions classified elsewhere J15.211 Pneumonia due to methicillin suscep staph E87.1 Hypo-osmolality and hyponatremia Office Visit 12/30/2018 10:14a [facility] Anais Keller1.81 Sepsis due to Enterococcus R65.21 Severe sepsis with septic shock J96.01 Acute respiratory failure with hypoxia N17.9 Acute kidney failure, unspecified D70.9 Neutropenia, unspecified R50.81 Fever presenting with conditions classified elsewhere J15.211 Pneumonia due to methicillin suscep staph E87.1 Hypo-osmolality and hyponatremia D69.6 Thrombocytopenia, unspecified Office Visit 12/29/2018 10:14a [facility] Anais Keller1.81 Sepsis due to Enterococcus [...] Frequency of micturition Office Visit 12/28/2018 [facility] Florencia Mendez, E87.1 Hypo-osmolality and 3:50p Assoc,pc hyponatremia Hospitalists R50.81 Fever presenting with conditions classified elsewhere D70.9 Neutropenia, unspecified A41.9 Sepsis, unspecified organism R65.21 Severe sepsis with septic shock F05 Delirium due to known physiological condition I48.91 Unspecified atrial fibrillation Office Visit 12/27/2018 [facility] Florencia Mendez, E87.1 Hypo-osmolality and 3:49p Assoc,pc hyponatremia Hospitalists Office Visit 11/04/2018 [facility] Milena I25.10 Athscl heart disease 11:20a Of [facility] [place], of [place] coronary M.DJudi artery w/o ang pctrs I48.0 Paroxysmal atrial fibrillation I49.5 Sick sinus syndrome Z95.0 Presence of cardiac pacemaker I35.0 Nonrheumatic aortic (valve) stenosis I34.0 Nonrheumatic mitral (valve) insufficiency I50.32 Chronic diastolic (congestive) heart failure Office Visit 10/21/2018 [facility] Dvorah N84.0 Polyp of corpus 11:00a [facility] MD David uteri Office Visit 09/20/2018 [facility] Milena Rose, Z01.810 Encounter for 12:00p Cardiology Of [facility]ucky preprocedural [facility] cardiovascular examination C50.912 Malignant neoplasm of unspecified site of left female breast I50.32 Chronic diastolic (congestive) heart failure Z95.0 Presence of cardiac pacemaker I48.0 Paroxysmal atrial fibrillation I35.0 Nonrheumatic aortic (valve) stenosis I34.0 Nonrheumatic mitral (valve) insufficiency I44.7 Left bundle-branch block, unspecified Assessments Date Code Description Provider 03/02/2019 I42.9 Cardiomyopathy, unspecified Jennifer Phelps, VIVIAN 03/02/2019 I48.0 Paroxysmal atrial fibrillation Jennifer Phelps, VIVIAN 03/02/2019 I49.5 Sick sinus syndrome Jennifer Phelps NP 02/24/2019 I48.0 Paroxysmal atrial fibrillation Milena Rose M.D. 02/24/2019 I42.9 Cardiomyopathy, unspecified Milena Rose M.D. 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 01/18/2019 I44.7 Left bundle-branch block, unspecified Milena Rose M.D. 01/18/2019 Z51.81 Encounter for therapeutic drug level Milena Rose M.D. monitoring 01/09/2019 I48.91 Unspecified atrial fibrillation Ten Fuentes M.D. 01/08/2019 I48.0 Paroxysmal atrial fibrillation Gary Mcmullen M.D. 01/08/2019 I50.30 Unspecified diastolic (congestive) Gary Mcmullen M.D. heart failure 01/08/2019 I25.10 Athscl heart disease of [place] Gary Mcmullen M.D. coronary artery w/o ang [...] M.D. stap 01/01/2019 A41.81 Sepsis due to Enterococcus Lawrence [...] methicillin suscep Lawrence Sanchez MD [facility] 01/01/2019 D69.6 Thrombocytopenia, unspecified Lawrence Sanchez [...] methicillin suscep Lawrence Sanchez MD [facility] 12/31/2018 E87.1 Hypo-osmolality and hyponatremia Lawrence Sanchez MD 12/30/2018 A41.81 Sepsis due to Nakul Sanchez MD 12/30/2018 R78.81 Bacteremia Real Storey, [facility] 12/30/2018 R65.21 Severe sepsis with septic shock Lawrence Sanchez MD 12/30/2018 J96.01 Acute respiratory failure with Lawrence Sanchez MD hypoxia 12/30/2018 N17.9 Acute kidney failure, unspecified Lawrence Sanchez MD 12/30/2018 D70.9 Neutropenia, unspecified Lawrence Sanchez MD 12/30/2018 R50.81 Fever presenting with conditions Lawrence Sanchez MD classified elsewhere 12/30/2018 J15.211 Pneumonia due to methicillin suscep Lawrence Sanchez MD [facility] 12/30/2018 E87.1 Hypo-osmolality and hyponatremia Lawrence Sanchez MD 12/30/2018 D69.6 Thrombocytopenia, ronnellified Lawrence Sanchez MD 12/29/2018 A41.81 Sepsis due to Enterococcus Lawrence Sanchez MD 12/29/2018 R65.21 Severe sepsis with septic shock Lawrence Sanchez MD 12/29/2018 J96.01 Acute respiratory failure with Lawrence Sanchez MD hypoxia 12/29/2018 N17.9 Acute kidney failure, ronnellified Lawrence Sanchez MD 12/29/2018 J18.9 Pneumonia, unspecified organism Lawrence Sanchez MD 12/29/2018 D70.9 Neutropenia, unspecified Lawrence Sanchez MD 12/29/2018 D69.6 Thrombocytopenia, unspecified Lawrence Sanchez MD 12/29/2018 E87.1 Hypo-osmolality and hyponatremia Lawrence Sanchez MD 12/28/2018 R65.21 Severe sepsis with septic shock Lawrence Sanchez MD 12/28/2018 J96.01 Acute respiratory failure with Lwarence Sanchez MD hypoxia 12/28/2018 N17.9 Acute kidney failure, unspecified Lawrence Sanchez MD 12/28/2018 A41.9 Sepsis, unspecified organism Lawrence Sanchez MD 12/28/2018 D70.8 Other neutropenia Lawrence Sanchez MD 12/28/2018 E87.1 Hypo-osmolality and hyponatremia Florencia Mendez MD 12/28/2018 R40.2430 Fitzhugh coma scale score 3-8, Lawrence Sanchez MD [...] Atherosclerotic heart disease of Milena Rose M.D. [place] coronary artery with 11/04/2018 I48.0 Paroxysmal atrial [...] follow 10/31/2018 C50.912 Malignant neoplasm of unspecified Chris Claire, PA site of left female breast [...] [place], PA site of left female breast 10/13/2018 C50.912 Malignant neoplasm of unspecified Christopher L. Dakotah, EULOGIO site of left female breast 10/13/2018 C50.912 Malignant neoplasm of unspecified Christopher LJudi Claire, PA site of left female breast 10/12/2018 C50.912 Malignant neoplasm of unspecified Ann Marie B. Mirella , FINANCIAL ANALYST site of left female breast 10/11/2018 C50.912 Malignant neoplasm of unspecified Kacy Cain MD site of left female breast 10/10/2018 C50.912 Malignant neoplasm of unspecified Ann Marie B. Mirella , FINANCIAL ANALYST site of left female breast 10/09/2018 C50.912 Malignant neoplasm of unspecified Michel Carrillo MD, FACS site of left female breast 10/08/2018 C50.912 Malignant neoplasm of unspecified Kacy Cain MD site of left female breast 10/07/2018 N95.0 Postmenopausal bleeding Raffy Hernandez MD 10/07/2018 C50.912 Malignant neoplasm of unspecified Ann Marie B. Eckenrode , FINANCIAL ANALYST site of left female breast 10/07/2018 N84.0 [...] Left bundle-branch block, unspecified Milena Rose M.D. Plan of Treatment Future Appointment(s):06/19/2019 3:20 pm - Milena Rose M.D. at [facility]04/03/2019 6:20 am - Remote Device Checks at [facility]03/02/2019 - Jennifer Phelps NPI42.9 Cardiomyopathy, lcisrslocyyS42.0 Paroxysmal atrial fibrillationFollow up:in 1 month after 2018 device check with ri or same day as 04/03/2019. follow up with Dr. Rose in 4 months.I49.5 Sick sinus syndrome Functional Status Description No Information Available Mental Status Description No Information Available Referrals Description No Information Available
--- OUTSIDE RECORDS SUMMARY | 2019-04-19 17:27 | XMS REPORT | Continuity of Care Document ---
:1955 External Reference #:[id number] Author Name Jennifer Phelps NP (transmitted by agent of provider Amanda Zuniga) Address [address] [place] [address] Care Team Providers Name Role Phone Milena Rose MD - Cardiovascular Care Team Information Tightener Disease Nikolai Deluca MD - Family Medicine Care Team Information Tightener [phone] Problems Active Problems Provider Date Atrial flutter [...] using. Last use 01/27 Smoking Status Reviewed: 04/03/19 Medical Marijuana not currently using. Last use [...] Milena Rose, 12/26/2018 250mcg mouth twice daily. M.D. Capsules Miconazole Nitrate apply as directed 60gm Kacy Moody 11/22/2018 2% MD Ant Cream Nystatin apply as directed 1units Kacy Moody 09/23/2018 Powder to affected area MD Ant bid Colace 1 tab every 12 Unknown 100mg Capsules hours as needed for constipation Mucinex 1 by mouth twice a Unknown 600mg Tablets day ER 12HR Atrovent HFA 1 puff twice a day Unknown 17mcg/Act Aerosol Oxycodone HCL 1 tabs by mouth Unknown 5mg every 4-6 hours as Tablets needed Torsemide 1 tab every m-w- 30tabs Jennifer Thuman, 20mg and 1/2 tab all [employer] Tablets other days. Metoprolol Tartrate 1 by mouth twice a Milena Rose, day M.D. 25mg Tablets Acetaminophen ER 1 tab by mouth q4 Unknown hours as needed 650mg Tablets ER pain Magnesium-Oxide 1 cap by mouth Unknown daily 400(241.3mg) mg Tablets Buspirone HCL Take 1 by mouth Unknown 5mg three times a day Tablets (patient states she is not currently using) Ventolin HFA 2 puffs inhalation Unknown four times a day as 108(90Base) mcg/Act needed Aerosol [place] 3-6-9 1 cap po once daily Unknown 1200mg (1000mg) Capsules Ranitidine HCL 1 po qd 180tabs Unknown 150mg Tablets Acidophilus/Bifidus 1 capsules by Unknown mouth twice daily 100mg Capsule Vitamin D3 1 capsule by mouth Unknown 400Unit every other day Capsules Co Q 10 1 po qd Unknown 100mg Capsules Vitamin B-Complex 1 po qd 30tabs Unknown Tablets Vitamin C 1 po qd Unknown 1000mg Capsules Manoj-Mag 2 soft gel by mouth Unknown Soft Gel twice daily Levothyroxine Sodium 1 po qd Unknown 75mcg Tablets Xarelto 1 po qd 30tabs Breiman, 20mg Tablets MD Nikolai History Medications Monistat 4% Cream apply to skin as Kenan Nguyen, 11/22/2018 - directed Bucky Unknown Oxycodone-Acetamin 1--2 tab by mouth 12tabs C50.912 Kacy Cain, 10/20 - ophen every 4- 6 hours Unknown 5-325mg as needed for Tablets pain Immunizations Description No Information Available Vital Signs Date Vital Result Comment 04/03/2019 2:47pm Height 66 inches 5'6" Weight 159.50 lb with shoes Heart Rate 74 /min radial regular BP Systolic Sitting 124 mmHg Lue large cuff BP Diastolic Sitting 78 mmHg Lue large cuff BP Systolic Standing 124 mmHg Lue large cuff BP Diastolic Standing 76 mmHg Lue large cuff BMI (Body Mass Index) 25.7 kg/m2 Ejection Fraction 50-60% ECHO 12/30/18 03/02/2019 12:16pm Height 66 inches 5'6" Weight 153.00 lb with shoes/clothes Heart Rate 74 /min radial, regular BP Systolic Sitting 108 mmHg Ra, reg cuff BP Diastolic Sitting 58 mmHg Ra, reg cuff BP Systolic Standing 106 mmHg Ra, reg cuff BP Diastolic Standing 60 mmHg Ra, reg cuff BMI (Body Mass Index) 24.7 kg/m2 Ejection Fraction 55%-60% echo 12/30/18 Results Test Date Facility Test Result H/L Range Note Basic Metabolic 03/28/2019 [facility] Sodium 133 mmol/L Low 135-145 [address] [place] [address] [phone] Potassium 4.3 mmol/L Normal 3.5-5.0 Chloride 95 mmol/L Low 101-111 Co2 Carbon Dioxide 33 mmol/L High 22-32 Anion Gap 5 mmol/L Normal 2-11 Glucose 123 mg/dL High 70-100 Blood Urea Nitrogen 23 mg/dL Normal 6-24 Creatinine 0.87 mg/dL Normal 0.51-0.95 BUN/Creatinine Ratio 26.4 High 8-20 Calcium 8.9 mg/dL Normal 8.6-10.3 Egfr Non- 66.0 >60 Egfr 79.8 >60 1 Laboratory test 03/28/2019 [facility] Magnesium 2.1 mg/dL Normal 1.9-2.7 2 finding [address] [place] [address] [phone] Basic Metabolic 03/24/2019 [facility] Sodium 132 mmol/L Low 135-145 Panel [address] [place] [address] [phone] Potassium 4.3 mmol/L Normal 3.5-5.0 Chloride 91 mmol/L Low 101-111 Co2 Carbon Dioxide 33 mmol/L High 22-32 Anion Gap 8 mmol/L Normal 2-11 Glucose 142 mg/dL High 70-100 Blood Urea Nitrogen 23 mg/dL Normal 6-24 Creatinine 0.90 mg/dL Normal 0.51-0.95 BUN/Creatinine Ratio 25.6 High 8-20 Calcium 9.2 mg/dL Normal 8.6-10.3 Egfr Non- 63.4 >60 Egfr 76.8 >60 3 Laboratory test 03/24/2019 [facility] Magnesium 2.2 mg/dL Normal 1.9-2.7 4 finding [address] [place] [address] [phone] Basic Metabolic 03/07/2019 [facility] Sodium 132 mmol/L Low 135-145 [address] [place] [address] [phone] Potassium 4.5 mmol/L Normal 3.5-5.0 Chloride 94 mmol/L Low 101-111 Co2 Carbon Dioxide 33 mmol/L High 22-32 Anion Gap 5 mmol/L Normal 2-11 Glucose 125 mg/dL High 70-100 Blood Urea Nitrogen 23 mg/dL Normal 6-24 Creatinine 0.77 mg/dL Normal 0.51-0.95 BUN/Creatinine Ratio 29.9 High 8-20 Calcium 9.5 mg/dL Normal 8.6-10.3 Egfr Non- 76.0 >60 Egfr 91.9 >60 5 Laboratory test 03/07/2019 [facility] Magnesium 2.1 mg/dL Normal 1.9-2.7 [address] [place] [address] [phone] Laboratory test 02/08/2019 [facility] Magnesium 2.1 mg/dL Normal 1.9-2.7 [address] [place] [address] [phone] CBC Auto Diff 12/21/2018 [facility] White Blood 8.6 Normal 3.5 -10.[address] [place] [address] Count 10^3/[place] [address] [phone] Red Blood Count 5.25 10^6/uL High 3.70-4.87 [...] Cells % 0.1 Comp Metabolic Panel 12/21/2018 [facility] Sodium 133 mmol/L Low 135-145 [address] [place] [address] [phone] Potassium 4.6 mmol/L Normal 3.5-5.0 Chloride 94 [...] Egfr Non- 73.7 >60 Egfr 89.2 >60 7 Basic Metabolic 11/17/2018 [facility] Sodium 137 mmol/L Normal 135-145 Panel [address] [place] [address] [phone] Potassium 4.6 mmol/L Normal 3.5-5.0 Chloride 96 mmol/L Low 101-111 Co2 Carbon Dioxide 33 mmol/L High 22-32 Anion Gap 8 mmol/L Normal 2-11 Glucose 138 mg/dL High 70-100 Blood Urea Nitrogen 34 mg/dL High 6-24 Creatinine 0.96 mg/dL High 0.51-0.95 BUN/Creatinine Ratio 35.4 High 8-20 Calcium 9.9 mg/dL Normal 8.6-10.3 Egfr Non- 58.9 >60 Egfr 71.3 >60 8 Laboratory test 11/17/2018 [facility] Magnesium 2.3 mg/dL Normal 1.9-2.[address] [address] [phone] 1 Because ethnic data is not always [...] 5 Kidney failure <15 (or dialysis) 2 run STAT 3 Because ethnic data is not always [...] 5 Kidney failure <15 (or dialysis) 4 Please run STAT. 5 Because ethnic data is not always [...] 5 Kidney failure <15 (or dialysis) 6 Pt also needs BMP - see sperate order 7 Because ethnic data is not always [...] 5 Kidney failure <15 (or dialysis) 9 November Copy Result to: NIKOLAI DELUCA ([id number]) Procedures Date Code Description Status 03/20/2019 74357 Icd Eval Sing,Dual,Multi Lead Remote Recpt Transm Tech Completed Rev Tech S 03/20/2019 59005 Pacemaker Check Remote Up To 90Days Completed Single,Dual,Multiple Lead 02/01/2019 63803 EKG Tracing & Interpretation Completed 01/18/2019 92484 EKG, Interpretation Only Completed 01/13/2019 73864 EKG, Interpretation Only Completed 01/12/2019 58569 EKG, Interpretation Only Completed 01/11/2019 68771 EKG, Interpretation Only Completed 01/10/2019 58821 EKG, Interpretation Only Completed 01/09/2019 88212 EKG, Interpretation Only Completed 01/08/2019 98040 EKG, Interpretation Only Completed 01/06/2019 86392 EKG, Interpretation Only Completed 01/01/2019 53073 EKG, Interpretation Only Completed 12/31/2018 28451 EKG, Interpretation Only Completed 12/30/2018 12200 ECHO Transthorasic Realtime 2D W Doppler & Color Flow Completed Hosp 12/30/2018 33071 EKG, Interpretation Only Completed 12/29/2018 23250 Arterial Line Completed 12/29/2018 35772 EKG, Interpretation Only Completed 12/28/2018 50600 EKG, Interpretation Only Completed 12/28/2018 82573 Insert Non-Tunneled Venous Catether Completed 12/27/2018 82645 EKG, Interpretation Only Completed 12/12/2018 90313 Pace Maker Eval W/Iterative Adjment Dual Lead Completed 12/12/2018 58070 Pace Maker Eval W/Iterative Adjment Dual Lead Completed 10/27/2018 20384 Icd Eval Sing,Dual,Multi Lead Remote Recpt Transm Tech Completed Rev Tech S 10/27/2018 55931 Icd Eval Sing,Dual,Multi Lead Remote Recpt Transm Tech Completed Rev Tech S 10/27/2018 29178 Pacemaker Check Remote Up To 90Days Completed Single,Dual,Multiple Lead 10/27/2018 70089 Pacemaker Check Remote Up To 90Days Completed Single,Dual,Multiple Lead 10/07/2018 05572 Hysteroscopy, Surgical W/Biopsy Endometrium/Polpectomy Completed W/W/O D&C 10/07/2018 67359 Mastectomy Mod Radical Not Including Pectoralis Major Completed Muscle 10/07/2018 45546 Mastectomy Mod Radical Not Including Pectoralis Major Completed Muscle 07/27/2018 [id number] Mammogram Completed Medical Devices Description No Information Available Encounters Type Date Location Provider Dx Diagnosis Office Visit 03/02/2019 [facility] Jennifer Phelps, I42.9 Cardiomyopathy, 12:15p [employer] unspecified I48.0 Paroxysmal atrial fibrillation I49.5 Sick sinus syndrome Office Visit 02/24/2019 4:20p [facility] Milena Rose, I48.0 Paroxysmal atrial Of Support Architect M.D. fibrillation I42.9 Cardiomyopathy, unspecified I25.10 Athscl heart disease of [place] coronary artery w/o ang pctrs I49.5 Sick sinus syndrome I44.7 Left bundle-branch block, unspecified Z95.0 Presence of cardiac pacemaker F41.9 Anxiety disorder, unspecified I50.32 Chronic diastolic (congestive) heart failure E87.1 Hypo-osmolality and hyponatremia Office Visit 02/01/2019 2:30p [facility] Jennifer Phelps, I48.0 Paroxysmal atrial [employer] fibrillation I42.9 Cardiomyopathy, unspecified Z79.899 Other group home (current) drug therapy Z95.0 Presence of cardiac pacemaker Office Visit 01/18/2019 11:37a [facility] Milena Rose I48.0 Paroxysmal atrial Of Support Architect M.D. fibrillation I44.7 Left bundle-branch block, unspecified Z51.81 Encounter for therapeutic drug level monitoring Office Visit 01/09/2019 2:54p [facility] [place] I48.91 Unspecified atrial Cardiology Of Brand, M.D. fibrillation Support Architect Office Visit 01/08/2019 1:30p [place] Gary Dowling I48.0 Paroxysmal atrial Cardiology [place], fibrillation M.D. I50.30 Unspecified diastolic (congestive) heart failure I25.10 Athscl heart disease of [place] coronary artery w/o ang pctrs I44.7 Left [...] unspecified Office Visit 12/29/2018 10:14a [facility] Lawrence Sanchez, A41.81 Sepsis due to MD Enterococcus R65.21 Severe sepsis with septic shock J96.01 Acute respiratory failure with hypoxia N17.9 Acute kidney failure, unspecified J18.9 Pneumonia, unspecified organism D70.9 Neutropenia, unspecified D69.6 Thrombocytopenia, unspecified E87.1 Hypo-osmolality and hyponatremia Office Visit 12/28/2018 10:13a [facility] Lawrence Sanchez N17.9 Acute kidney MD failure, unspecified J96.01 Acute respiratory failure with hypoxia R65.21 Severe sepsis with septic shock A41.9 Sepsis, unspecified organism D70.8 Other neutropenia R40.2430 [place] coma scale score 3-8, unspecified time D69.6 Thrombocytopenia, unspecified E87.1 Hypo-osmolality and hyponatremia R35.0 Frequency of micturition Office Visit 12/28/2018 [facility] Florencia Mendez, E87.1 Hypo-osmolality and 3:50p Assoc,pc hyponatremia Hospitalists R50.81 Fever presenting with conditions classified elsewhere D70.9 Neutropenia, unspecified A41.9 Sepsis, unspecified organism R65.21 Severe sepsis with septic shock F05 Delirium due to known physiological condition I48.91 Unspecified atrial fibrillation Office Visit 12/27/2018 [facility] Florencia Mendez, E87.1 Hypo-osmolality and 3:49p Assoc,pc hyponatremia Hospitalists Office Visit 11/04/2018 [facility] Milena I25.10 Athscl heart disease 11:20a [facility] [place], of [place] coronary M.D. 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 Assessments Date Code Description Provider 04/03/2019 I48.0 Paroxysmal atrial fibrillation Jennifer Thshea, [employer] 04/03/2019 I42.9 Cardiomyopathy, unspecified [facility], [employer] 04/03/2019 I35.0 Nonrheumatic aortic (valve) stenosis Jennifer Thuman, [employer] 04/03/2019 Z79.899 [facility] [employer] [employer] therapy 04/03/2019 Z95.0 Presence of cardiac pacemaker Jennifer Phelps NP 03/20/2019 I42.9 Cardiomyopathy, unspecified Remote Device Checks 03/20/2019 I48.0 Paroxysmal atrial fibrillation Remote Device Checks 03/20/2019 I49.5 Sick sinus syndrome Remote Device Checks 03/20/2019 Z95.0 Presence of cardiac pacemaker Remote Device Checks 03/02/2019 I42.9 Cardiomyopathy, unspecified Jennifer Lenin, [employer] 03/02/2019 I48.0 [facility] 03/02/2019 I49.5 Sick sinus syndrome Jennifer Lenin, VIVIAN 02/24/2019 I48.0 Paroxysmal atrial fibrillation Milena Rose M.D. 02/24/2019 I42.9 Cardiomyopathy, unspecified Milena Rose M.D. 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 02/24/2019 I44.7 Left bundle-branch block, Milena Rose M.D. unspecified 02/24/2019 Z95.0 Presence of cardiac pacemaker Milena Rose M.D. 02/24/2019 F41.9 Anxiety disorder, unspecified Milena Rose M.D. 02/24/2019 I50.32 Chronic diastolic (congestive) heart Milena Rose M.D. failure 02/24/2019 E87.1 Hypo-osmolality and hyponatremia Milena Rose M.D. 02/01/2019 R94.31 Abnormal electrocardiogram [ECG] Milena Rose M.D. [EKG] 02/01/2019 I48.0 [facility]oxysmal [facility] 02/01/2019 I42.9 Cardiomyopathy, unspecified Jennifer Phelps NP 02/01/2019 Z79.899 Other group home (current) drug Jennifer PhelpsVIVIAN therapy 02/01/2019 Z95.0 Presence of cardiac pacemaker Jennifer Phelps NP 01/18/2019 R94.31 Abnormal electrocardiogram [ECG] Antonino Miller M.D., FAC, [EKG] [facility]AS[facility] 01/18/2019 I48.0 Paroxysmal atrial fibrillation Milena Rose M.D. 01/18/2019 I44.7 Left bundle-branch block, Milena Rose M.D. unspecified 01/18/2019 Z51.81 Encounter for therapeutic drug level Milena Rose M.D. monitoring 01/13/2019 R94.31 Abnormal electrocardiogram [ECG] Milena Rose M.D. [EKG] 01/12/2019 R94.31 Abnormal electrocardiogram [ECG] Milena Rose M.D. [EKG] 01/11/2019 R94.31 Abnormal electrocardiogram [ECG] Milena Rose M.D. [EKG] 01/10/2019 R94.31 Abnormal electrocardiogram [ECG] Milena Rose M.D. [EKG] 01/09/2019 R94.31 Abnormal electrocardiogram [ECG] Milena Rose M.D. [EKG] 01/09/2019 I48.91 Unspecified atrial fibrillation [place]entes M.D. 01/08/2019 R94.31 Abnormal electrocardiogram [ECG] Gary Mcmullen M.D. [EKG] 01/08/2019 I48.0 Paroxysmal atrial fibrillation Gary Mcmullen M.D. 01/08/2019 I50.30 Unspecified diastolic (congestive) Gary Mcmullen M.D. heart failure 01/08/2019 I25.10 Atherosclerotic heart disease of Gary Mcmullen M.D. [place] coronary artery without angina pectoris 01/08/2019 I44.7 Left bundle-branch block, Gary Mcmullen M.D. unspecified 01/08/2019 I49.5 Sick sinus syndrome Qurosy Mcmullen M.D. 01/08/2019 Z95.0 Presence of cardiac pacemaker Gary Mcmullen M.D. 01/07/2019 I48.91 Unspecified atrial fibrillation Arsh Storey M.D. 01/07/2019 J91.8 Pleural effusion in other conditions Arsh Storey M.D. classified elsewhere 01/06/2019 I44.7 Left bundle-branch block, Real Storey, DO FACC unspecified 01/06/2019 J96.01 Acute respiratory failure with EULOGIO Lopez hypoxia 01/06/2019 I48.91 Unspecified atrial fibrillation EULOGIO Lopez 01/06/2019 J90 Pleural effusion, not elsewhere EULOGIO Lopez classified 01/06/2019 I50.33 Acute on chronic diastolic EULOGIO Lopez (congestive) heart failure 01/06/2019 I11.0 Hypertensive heart disease with EULOGIO Lopez heart failure 01/05/2019 J98.11 Atelectasis Arsh Storey M.D. [...] methicillin suscep Arsh Storey M.D. staph 01/01/2019 R94.31 Abnormal electrocardiogram [ECG] Real Storey DO FACC [EKG] 01/01/2019 A41.81 Sepsis due to Enterococcus Lawrence [...] due to methicillin suscep Lawrence Sanchez MD stap 01/01/2019 D69.6 Thrombocytopenia, unspecified Lawrence Sanchez MD 12/31/2018 R94.31 Abnormal electrocardiogram [ECG] Real Storey, DO FACC [EKG] 12/31/2018 A41.81 Sepsis due to Nakul Sanchez MD 12/31/2018 R65.21 Severe sepsis with septic shock Lawrence Sanchez MD 12/31/2018 J96.01 Acute respiratory failure with Lawrence Sanchez MD hypoxia 12/31/2018 N17.9 Acute kidney failure, unspecified Lawrence Sanchez MD 12/31/2018 D70.9 Neutropenia, unspecified Lawrence Sanchez MD 12/31/2018 R50.81 Fever presenting with conditions Lawrence Sanchez MD classified elsewhere 12/31/2018 J15.211 Pneumonia due to methicillin susulisses Sanchez MD stap 12/31/2018 E87.1 Hypo-osmolality and hyponatremia Lawrence Sanchez MD 12/30/2018 R94.31 Abnormal electrocardiogram [ECG] Antonino Miller M.D., FACC, [EKG] [facility] 12/30/2018 A41.81 Sepsis due to Nakul Sanchez MD 12/30/2018 R78.81 Bacteremia Real Storey, DO FACC 12/30/2018 R65.21 Severe sepsis with septic shock Lawrence Sanchez MD 12/30/2018 J96.01 Acute respiratory failure with Lawrence Sanchez MD hypoxia 12/30/2018 N17.9 Acute kidney failure, unspecified Lawrence Sanchez MD 12/30/2018 D70.9 Neutropenia, unspecified Lawrence Sanchez MD 12/30/2018 R50.81 Fever presenting with conditions Lawrence Sanchez MD classified elsewhere 12/30/2018 J15.211 Pneumonia due to methicillin suscep Lawrence Sanchez MD stap 12/30/2018 E87.1 Hypo-osmolality and hyponatremia Lawrence Sanchez MD 12/30/2018 D69.6 Thrombocytopenia, unspecified Lawrence Sanchez MD 12/29/2018 R94.31 Abnormal electrocardiogram [ECG] Antonino Miller M.D., FACC, [EKG] [facility] 12/29/2018 A41.81 Sepsis due to Enterococcus Lawrence [...] Hypo-osmolality and hyponatremia Lawrence Sanchez MD 12/28/2018 R94.31 Abnormal electrocardiogram [ECG] Antonino Miller M.D., FACC, [EKG] [facility] 12/28/2018 R65.21 Severe sepsis with septic shock Lawrence Sanchez MD 12/28/2018 J96.01 Acute respiratory failure with Lawrence Sanchez MD hypoxia 12/28/2018 N17.9 Acute kidney failure, unspecified Lawrence Sanchez MD 12/28/2018 A41.9 Sepsis, unspecified organism Lawrence Sanchez MD 12/28/2018 D70.8 Other neutropenia Lawrence Sanchez MD 12/28/2018 E87.1 Hypo-osmolality and hyponatremia Florencia Mendez MD 12/28/2018 R40.2430 [place] coma scale score 3-8, Lawrence Sanchez MD [...] Unspecified atrial fibrillation Florencia Mendez MD 12/27/2018 R94.31 Abnormal electrocardiogram [ECG] Antonino Miller M.D., FACC, [EKG] [facility] 12/27/2018 E87.1 Hypo-osmolality and hyponatremia Florencia Mendez [...] Atherosclerotic heart disease of Milena Rose M.D. [place] coronary artery with 11/04/2018 I48.0 Paroxysmal atrial [...] [place] site of left female breast 10/12/2018 C50.912 Malignant neoplasm of unspecified Ann Marie B. Mirella , [employer] site of left female breast 10/11/2018 C50.912 Malignant neoplasm of unspecified Kacy Cain MD site of left female breast 10/10/2018 C50.912 Malignant neoplasm of unspecified Ann Marie B. Mirella , [employer] site of left female breast 10/09/2018 C50.912 Malignant neoplasm of unspecified Michel Carrillo MD, FACS site of left female breast 10/08/2018 C50.912 Malignant neoplasm of unspecified Kacy Cain MD site of left female breast 10/07/2018 N95.0 Postmenopausal bleeding Raffy Hernandez MD 10/07/2018 C50.912 Malignant neoplasm of unspecified Ann Marie Vu NP site of left female breast 10/07/2018 N84.0 Polyp of corpus uteri Raffy Hernandez MD 10/07/2018 C50.912 Malignant neoplasm of unspecified Kacy Cain MD site of left female breast 10/04/2018 N95.0 Postmenopausal bleeding Raffy Hernandez MD 10/04/2018 R93.89 Abnormal findings on diagnostic Raffy Hernandez MD imaging of other specified body structures Plan of Treatment Future Appointment(s):06/19/2019 3:20 pm - Milena Rose M.D. at [facility]04/03/2019 - Jennifer Phelps, NPI48.0 Paroxysmal atrial fibrillationReferral:Hortencia Ceja MD, Pulmonary GtoxrxuuU27.9 Cardiomyopathy , unspecifiedRecommendations:get non fasting labs in 3-4 weeks which would be mid April.Ill call you with results. 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
[2019-04-19 17:28] LABS: ABS Basophils 0.1 10^3/ul (0-0.2); ABS Monocytes 0.9 10^3/ul (0-0.8); Eosinophil % 0.4 %; Hematocrit 39 % (35-47); Hemoglobin 12.9 g/dL (12.0-16.0); Lymphocyte % 13.9 %; Mean Corpuscular HGB Conc 33 g/dL (31-36); Mean Corpuscular Hemoglobin 28 pg (27-31); Mean Corpuscular Volume 84 fL (80-97); Mean Platelet Volume 7.7 fL (7.4-10.4); Platelet Count 350 10^3/uL (150-450); Red Blood Count 4.69 10^6 /uL (3.70-4.87); Red Cell Distribution Width 17 % (10-15)
--- NOTE | 2019-04-19 17:48 | ED ---
HPI Chest Pain - HPI Summary HPI Summary: Patient complains of mild chest tightness, and mild Shortness of breath with exertion for more than one week. States chest tightness is not a pain. Denies any chest discomfort at this time. Patient recently resumed activity after being treated with chemotherapy for breast cancer. Also Has history of same with panic attacks. Denies fever, cough, sore throat, N/3/D, abdominal pain, change in urine, change in BM. Patient received chemotherapy treatment December 2018 for breast cancer. States history of cardiac catheter 2010. History of chronic pleural effusions bilaterally. Medical history is breast cancer, hypothyroid, Hodgkin's, A. fib, wonders, CHF, COPD. Patient on Xarelto. Bi Report Developer Dr. Rose. - History of Current Complaint Chief Complaint: EDChestPainROMI Time Seen by Provider: 04/19/19 17:37 Hx Obtained From: Patient Onset/Duration: Started Days Ago Timing: Intermittent, Lasting Minutes Initial Severity: Mild Current Severity: None Pain Intensity: 0 Pain Scale Used: 0-10 Numeric Chest Pain Location: Mid Sternal Chest Pain Radiates: No Character: Tightness Aggravating Factor(s): Exertion Alleviating Factor(s): Rest Associated Signs and Symptoms: Positive: Chest Pain, Shortness of Breath - Additional Pertinent History Primary Care Physician: [id number] - Allergy/Home Medications Allergies/Adverse Reactions: Allergies Allergy/AdvReac Type Severity Reaction Status Date / Time clindamycin Allergy Severe Tachycardia Verified 04/19/19 17:55 dronedarone Allergy Severe Anaphylatic Verified 04/19/19 17:55 Shock penicillin G Allergy Severe Anaphylatic Verified 04/19/19 17:55 Shock sotalol Allergy Intermediate Fatigue Verified 04/19/19 17:55 atenolol Allergy Unknown Verified 04/19/19 17:55 Reaction Details levofloxacin AdvReac Intermediate Itching Verified 04/19/19 17:55 Home Medications: Home Medications Ranitidine TAB (NF) [Zantac TAB (NF)] 150 mg PO QAM 04/19/19 [History Confirmed 04/19/19] oxyCODONE/Acetamin 5/325 MG* [Percocet 5/325 TAB*] 1 tab PO Q6HR PRN MDD 4 04/19 [History Confirmed 04/19/19] PMH/Surg Hx/FS Hx/Imm Hx Endocrine/Hematology History: Reports: Hx Thyroid Disease Denies: Hx Diabetes Cardiovascular History: Reports: Hx Congestive Heart Failure, Hx Hypertension, Hx Pacemaker/ICD, Other Cardiovascular Problems/Disorders - A-flutter history; takes Xarelto, Tikosyn, metoprolol; lymphedema left arm Denies: Hx Coronary Artery Disease Respiratory History: Reports: Hx Chronic Bronchitis, Hx Chronic Obstructive Pulmonary Disease (COPD), Hx Pleural Effusion, Hx Pneumonia, Other Respiratory Problems/Disorders - PNEUMONIA FALL/2018 Denies: Hx Asthma GI History: Reports: Hx Gastroesophageal Reflux Disease History: Reports: Other Problems/Disorders - 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 Psychiatric History: Reports: Hx Anxiety - ON DAILY MEDS, Hx Post Traumatic Stress Disorder - Cancer History Cancer Type, Location and Year: hx of hodgkins lymphoma diagnosed in 1987. treated with chemo and radiation. Breast CA diagnosed 08/02/18 Hx Chemotherapy: Yes - HX OF HODKINS LYMPHOMA 1990 Hx Radiation Therapy: Yes - Surgical History Surgery Procedure, Year, and Place: THORACOTOMY, exploratory laparotomy for lymphoma Hx Anesthesia Reactions: No - Immunization History Date of Influenza Vaccine: not in 2017 Infectious Disease History: No Infectious Disease History: Reports: Hx Shingles Denies: Traveled Outside the [place] in Last 30 Days - Family History Known Family History: Positive: Other - Aunt/father with throat cancer - Social History Alcohol Use: None Alcohol Amount: 1-2 DRINKS/MONTH Hx Substance Use: No Substance Use Type: Reports: Marijuana Substance Use Comment - Amount & Last Used: In the past Hx Tobacco Use: Yes Smoking Status (MU): Former Smoker Type: Cigarettes Amount Used/How Often: 10 years 1 ppd; plus 10 years 5 cigarettes/day Have You Smoked in the Last Year: No Review of Systems Constitutional: Negative Eyes: Negative ENT: Negative Positive: Chest Pain Positive: Shortness Of Breath Gastrointestinal: Negative Genitourinary: Negative Musculoskeletal: Negative Skin: Negative Neurological: Negative Psychological: Normal All Other Systems Reviewed And Are Negative: Yes Physical Exam - Summary Physical Exam Summary: Chest pain not reproducible. Triage Information Reviewed: Yes Vital Signs On Initial Exam: Initial Vitals Temp Pulse Resp BP Pulse Ox 98.0 F 90 18 136/67 99 04/19/19 16:58 04/19/19 16:58 04/19/19 16:58 04/19/19 16:58 04/19/19 16:58 Vital Signs Reviewed: Yes Appearance: Positive: Well-Appearing Skin: Positive: Warm Head/Face: Positive: Normal Head/Face Inspection Eyes: Positive: Normal Neck: Positive: Supple Respiratory/Lung Sounds: Positive: Clear to Auscultation Cardiovascular: Positive: Normal Abdomen Description: Positive: Nontender Musculoskeletal: Positive: Normal Neurological: Positive: Normal Psychiatric: Positive: Normal AVPU Assessment: Alert - [place] Coma Scale Best Eye Response: 4 - Spontaneous Best Motor Response: 6 - Obeys Commands Best Verbal Response: 5 - Oriented Coma Scale Total: 15 Procedures - Sedation Patient Received Moderate/Deep Sedation with Procedure: No Diagnostics - Vital Signs Vital Signs Temp Pulse Resp BP Pulse Ox 04/19/19 16:58 98.0 F 90 18 136/67 99 - Laboratory Lab Results: Lab Results 04/19/19 Range/Units 17:17 WBC 7.0 (3.5-10.8) 10^3/uL RBC 4.69 (3.70-4.87) 10^6 /uL Hgb 12.9 (12.0-16.0) g/dL Hct 39 (35-47) % MCV 84 (80-97) fL MCH 28 (27-31) pg MCHC 33 (31-36) g/dL RDW 17 H (10-15) % Plt Count 350 (150-450) 10^3/uL MPV 7.7 (7.4-10.4) fL Neut % (Auto) 71.0 % Lymph % (Auto) 13.9 % [place] % (Auto) 13.2 % Eos % (Auto) 0.4 % Baso % (Auto) 1.5 % Absolute Neuts (auto) 5.0 (1.5-7.7) 10^3/ul Absolute Lymphs (auto) 1.0 (1.0-4.8) 10^3/ul Absolute Monos (auto) 0.9 H (0-0.8) 10^3/ul Absolute Eos (auto) 0.0 (0-0.6) 10^3/ul Absolute Basos (auto) 0.1 (0-0.2) 10^3/ul Absolute Nucleated RBC 0.0 10^3/ul Nucleated RBC % 0.0 Result Diagrams: 04/19/19 17:17 04/19/19 17:17 Lab Statement: Any lab studies that have been ordered have been reviewed, and results considered in the medical decision making process. Chest Pain Course/Dx - Course Course Of Treatment: Patient complains of mild chest tightness, and mild Shortness of breath with exertion for more than one week. States chest tightness is not a pain. Denies any chest discomfort at this time. Patient recently resumed activity after being treated with chemotherapy for breast cancer. Also Has history of same with panic attacks. Denies fever, cough, sore throat, N/3/D, abdominal pain, change in urine, change in BM. Patient received chemotherapy treatment December 2018 for breast cancer. States history of cardiac catheter 2010. History of chronic pleural effusions bilaterally. Medical history is breast cancer, hypothyroid, Hodgkin's, A. fib, wonders, CHF, COPD. Patient on Xarelto. Bi Report Developer Dr. Rose. Vital signs within normal limits. Labs at patient baseline. Serial troponins negative. EKG sinus rhythm with heart rate of 91, same as prior. D-dimer 1050. CTA chest negative for PE. Positive for chronic bilateral pleural effusions. Patient discharged in stable condition and advised to follow-up with manager metal Dr. Rose for further evaluation. - Diagnoses Provider Diagnoses: SOB (shortness of breath), Chest tightness Discharge ED - Sign-Out/Discharge Documenting (check all that apply): Patient Departure - Discharge Plan Condition: Stable Disposition: HOME Patient Education Materials: Chest Pain (ED), Shortness of Breath (ED) Referrals: Philip Chirinos MD [Primary Care Provider] - Additional Instructions: Follow-up with your manager metal Dr. Rose for further evaluation. Return to the ED for any worsening symptoms. - Billing Disposition and Condition Condition: STABLE Disposition: Home - Attestation Statements Provider Attestation: I was available for consultation for this patient. I did not evaluate the patient, or participate in any medical decision making or disposition decisions unless I am specifically named in the chart as having consulted on the patient. If I have consulted on the patient, please see my own ED note on the patient encounter. Kvng Yeager MD
[2019-04-19 17:50] LABS: INR 1.71 (0.82-1.09)
[2019-04-19 18:03] LABS: Albumin 4.3 g/dL (3.2-5.2); Albumin/Globulin Ratio 1.3 (1-3); BUN/Creatinine Ratio 25.5 (8-20); Calcium 9.7 mg/dL (8.6-10.3); EGFR African American 69.6 (>60); EGFR Non-African American 57.5 (>60); Globulin 3.4 g/dL (2-4); Total Bilirubin 0.6 mg/dL (0.2-1.0); Total Protein 7.7 g/dL (6.4-8.9)
[2019-04-19 18:05] LABS: Troponin I 0.01 ng/mL (<0.04)
[2019-04-19] MEDS ORDERED: Iodixanol* (CONTRAST) 320 MG/ML 100 ML SDV IV ONE (20:44)
[2019-04-19 23:48] VITALS: BP 111/69
== END 2019-04-19 23:50 | disposition home or self-care (01) ==
LOC: ED 16:54
DX: R06.02 Shortness of breath (principal); R07.9 Chest pain, unspecified; R06.2 Wheezing; Z85.3 Personal history of malignant neoplasm of breast; E03.9 Hypothyroidism, unspecified; I48.91 Unspecified atrial fibrillation; C81.90 Hodgkin lymphoma, unspecified, unspecified site; I50.9 Heart failure, unspecified; J44.9 Chronic obstructive pulmonary disease, unspecified; Z79.01 Long term (current) use of anticoagulants; Z79.899 Other long term (current) drug therapy; Z95.0 Presence of cardiac pacemaker; F41.9 Anxiety disorder, unspecified; Z87.891 Personal history of nicotine dependence
CPT/HCPCS: 36415; 71046; 71275; 80053; 84484; 85025; 85379; 85610; 93005; 99283; Q9967

== ENCOUNTER 2019-10-08 08:31 | Inpatient (IN) | payer OTHER ==
--- NOTE | 2019-10-08 08:48 | ED ---
Respiratory - HPI Summary HPI Summary: 64 y/o female presented to [facility] complaining of shortness of breath and a productive cough present for 3 days. Patient was achy 4 days ago but attributes that to physical therapy and is not achy now. She took 3 doses of her Albuterol inhaler per EMS instruction which helped. Fever of 101F was measured by EMS but the patient does not feel febrile and EMS stated he was not sure of the accuracy of the measurement due to quality of equipment used. Patient has had no known exposure to anyone who has tested positive for COVID-19 and has not traveled recently. Patient was given 2L of O2 which increased her O2 sat from the low 90s to 95 in the room. She has history of afib, COPD, and CHF. - History of Current Complaint Stated Complaint: SOB PER EMS Hx Obtained From: Patient, EMS Onset/Duration: Still Present Character: Cough (Productive) Associated Signs and Symptoms: Fever - measured by EMS, 101F (see HPI), SOB - Allergy/Home Medications Allergies/Adverse Reactions: Allergies Allergy/AdvReac Type Severity Reaction Status Date / Time clindamycin Allergy Severe Tachycardia Verified 04/19/19 17:55 dronedarone Allergy Severe Anaphylatic Verified 04/19/19 17:55 Shock penicillin G Allergy Severe Anaphylatic Verified 04/19/19 17:55 Shock sotalol Allergy Intermediate Fatigue Verified 04/19/19 17:55 atenolol Allergy Unknown Verified 04/19/19 17:55 Reaction Details levofloxacin AdvReac Intermediate Itching Verified 04/19/19 17:55 Home Medications: Home Medications [place]-3/Dha/Epa/Fish Oil [Fish Oil 500 mg Softgel] 1 cap PO QPM 04/05/13 [ History Confirmed 10/08/19] Levothyroxine TAB* [Synthroid 75 MCG TAB*] 75 mcg PO QAM 12/16/15 [History Confirmed 10/08/19] Metoprolol Tartrate TAB* [Lopressor TAB*] 25 mg PO BID 12/16/15 [History Confirmed 10/08/19] Ascorbic Acid TAB* [Vitamin C TAB*] 1,000 mg PO QAM 04/01/18 [History Confirmed 10/08/19] Calcium/Magnesium/Vitamin D3 [Manoj-Mag Complex 300-150 mg Tab] 2 tab PO BID 04/01 [History Confirmed 10/08/19] Magnesium Oxide TAB* [MagOx 400 TAB*] 400 mg PO QAM 09/12/18 [History Confirmed 10/08/19] Albuterol HFA INHALER* [Ventolin HFA Inhaler*] 2 puff INH Q6H PRN mdi 10/08/18 [Rx Confirmed 10/08/19] Dofetilide CAP* [Tikosyn CAP*] 250 mcg PO BID #60 cap 01/18/19 [Rx Confirmed ] Rivaroxaban TAB(*) [Xarelto 20 mg] 20 mg PO QPM tab 01/19/19 [Rx Confirmed ] guaiFENesin ER TAB [Mucinex*] 600 mg PO BID #14 tab.er 01/19/19 [Rx Confirmed ] Ipratropium HFA INHALER(NF) [Atrovent Hfa Inhaler(NF)] 17 mcg INH QID PRN [History Confirmed 10/08/19] Torsemide TAB* [Demadex 20 MG*] 10 mg PO DAILY 02/17/19 [History Confirmed 10/07] Ranitidine TAB (NF) [Zantac TAB (NF)] 150 mg PO QAM 04/19/19 [History Confirmed 10/08/19] oxyCODONE/Acetamin 5/325 MG* [Percocet 5/325 TAB*] 1 tab PO Q6HR PRN MDD 4 04/19 [History Confirmed 10/08/19] PMH/Surg Hx/FS Hx/Imm Hx Endocrine/Hematology History: Reports: Hx Thyroid Disease Denies: Hx Diabetes Cardiovascular History: Reports: Hx Congestive Heart Failure, Hx Hypertension, Hx Pacemaker/ICD, Other Cardiovascular Problems/Disorders - A-flutter history; takes Xarelto, Tikosyn, metoprolol; lymphedema left arm Denies: Hx Coronary Artery Disease Respiratory History: Reports: Hx Chronic Bronchitis, Hx Chronic Obstructive Pulmonary Disease (COPD), Hx Pleural Effusion, Hx Pneumonia, Other Respiratory Problems/Disorders - PNEUMONIA FALL/2017 Denies: Hx Asthma GI History: Reports: Hx Gastroesophageal Reflux Disease History: Reports: Other Problems/Disorders - 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 Psychiatric History: Reports: Hx Anxiety - ON DAILY MEDS, Hx Post Traumatic Stress Disorder - Cancer History Cancer Type, Location and Year: hx of hodgkins lymphoma diagnosed in 1987. treated with chemo and radiation. Breast CA diagnosed 08/02/18 Hx Chemotherapy: Yes - HX OF HODKINS LYMPHOMA 1990 Hx Radiation Therapy: Yes - Surgical History Surgery Procedure, Year, and Place: THORACOTOMY, exploratory laparotomy for lymphoma Hx Anesthesia Reactions: No - Immunization History Date of Influenza Vaccine: not in 2017 Infectious Disease History: Reports: Hx Shingles - Family History Known Family History: Positive: Other - Aunt/father with throat cancer - Social History Alcohol Use: None Alcohol Amount: 1-2 DRINKS/MONTH Hx Substance Use: No Substance Use Type: Reports: Marijuana Substance Use Comment - Amount & Last Used: In the past Hx Tobacco Use: Yes Smoking Status (MU): Former Smoker Type: Cigarettes Amount Used/How Often: 10 years 1 ppd; plus 10 years 5 cigarettes/day Have You Smoked in the Last Year: No Review of Systems Positive: Fever - 101F as measured by EMS Positive: Shortness Of Breath, Cough - productive Positive: Myalgia - 4 days ago, resolved All Other Systems Reviewed And Are Negative: Yes Physical Exam - Summary Physical Exam Summary: VITAL SIGNS: Reviewed. GENERAL: Patient is a well-developed and nourished female who is lying comfortable in the stretcher. Patient is not in any acute respiratory distress. HEAD AND FACE: No signs of trauma. No ecchymosis, hematomas or skull depressions. No sinus tenderness. EYES: PERRL, EOMI x 2, No injected conjunctiva, no nystagmus. EARS: Hearing grossly intact. Ear canals and tympanic membranes are within normal limits. MOUTH: Oropharynx within normal limits. NECK: Supple, trachea is midline, no adenopathy, no JVD, no carotid bruit, no c- spine tenderness, neck with full ROM. CHEST: Symmetric, no tenderness at palpation. LUNGS: Crackles in bilat lung bases CVS: Regular rate and rhythm, S1 and S2 present, no murmurs or gallops appreciated. ABDOMEN: Soft, non-tender. No signs of distention. No rebound, no guarding, and no masses palpated. Bowel sounds are normal. EXTREMITIES: FROM in all major joints, Pitting edema in LE, no cyanosis or clubbing. NEURO: Alert and oriented x 3. No acute neurological deficits. Speech is normal and follows commands. SKIN: Dry and warm. Triage Information Reviewed: Yes Vital Signs Reviewed: Yes Procedures - Sedation Patient Received Moderate/Deep Sedation with Procedure: No Diagnostics - Laboratory Result Diagrams: 10/08/19 10:00 10/08/19 10:00 Lab Statement: Any lab studies that have been ordered have been reviewed, and results considered in the medical decision making process. - Radiology chest xray Radiology Interpretation Completed By: Radiologist Summary of Radiographic Findings: IMPRESSION: CHRONIC PLEURAL CHANGES IN THE RIGHT LUNG BASE. LEFT LUNG FIELD IS CLEAR. This report was reviewed by the ED physician. - EKG 1006 Cardiac Rate: Tachycardia EKG Rhythm: Sinus Tachycardia Summary of EKG Findings: EKG at 1006 shows sinus tachycardia with LBBB at 103bpm. Irregular rate and rhytmm. No ST elevations. No STEMI. This EKG was reviewed and interpreted by the ED physician. Disposition - Course Assessment/Plan: 64 y/o female presented to [facility] complaining of shortness of breath and a productive cough present for 3 days. Patient was achy 4 days ago but attributes that to physical therapy and is not achy now. She took 3 doses of her Albuterol inhaler per EMS instruction which helped. Fever of 101F was measured by EMS but the patient does not feel febrile and EMS stated he was not sure of the accuracy of the measurement due to quality of equipment used. Patient has had no known exposure to anyone who has tested positive for COVID- 19 and has not traveled recently. Patient was given 2L of O2 which increased her O2 sat from the low 90s to 95 in the room. She has history of afib, COPD, and CHF. In the ED course the patient was placed in a monitor car operator, IV access was obtained. Past medical records reviewed. Blood test w/o a significant abnormality except for wbcs of 20.7, gastroenteritis of 19.9, INR is 5.3, sodium is 112, glucose 149, troponin 0.04, CRP of 200, BNP 975. Influenza A and B is negative. CXC IMPRESSION: CHRONIC PLEURAL CHANGES IN THE RIGHT LUNG BASE. LEFT LUNG FIELD IS CLEAR. Patient given IV 125 cc/hr. For her hyponatremia. She was started on Cefepime since her WBC 20 and CPR >200. Discussed with Dr. Rowan and she discussed the case with Denise Asher from ICU and accepted the patient to ICU under Dr. Monroe services. - Diagnoses Provider Diagnoses: Hyponatremia, CHF exacerbation, Elevated troponin, Leukocytosis - Physician Notifications Discussed Care Of Patient With: Real Storey Time Discussed With Above Provider: 11:29 Instructed by Provider To: Other - Patient's case was discussed with Dr. Storey , who agrees to admit the patient. - Critical Care Time Critical Care Time: 30-74 min Discharge ED - Sign-Out/Discharge Documenting (check all that apply): Patient Departure - admit - Discharge Plan Condition: Stable Disposition: ADMITTED TO [facility] - Billing Disposition and Condition Condition: STABLE Disposition: Admitted to [facility] - Attestation Statements Document Initiated by Priscilae: Yes Documenting Scribe: Mike Bradshaw Provider For Whom Amaury is Documenting (Include Credential): Homer Moe MD Scribe Attestation: Mike Damon, scribed for Homer Moe MD on 10/08/19 at 1848. Scribe Documentation Reviewed: Yes Provider Attestation: The documentation as recorded by the Mike resendiz accurately reflects the service I personally performed and the decisions made by Homer burgos MD Status of Scribe Document: Viewed
[2019-10-08 10:17] LABS: Hematocrit 40 % (35-47); Hemoglobin 13.5 g/dL (12.0-16.0); Mean Corpuscular HGB Conc 34 g/dL (31-36); Mean Corpuscular Hemoglobin 29 pg (27-31); Mean Corpuscular Volume 86 fL (80-97); Mean Platelet Volume 8.7 fL (7.4-10.4); Platelet Count 165 10^3/uL (150-450); Red Blood Count 4.66 10^6 /uL (3.70-4.87); Red Cell Distribution Width 16 % (10-15); White Blood Count 20.7 10^3/uL (3.5-10.8)
[2019-10-08 10:26] LABS: Activated Partial Thrombo Time 38.8 seconds (26.0-38.0)
--- OUTSIDE RECORDS SUMMARY | 2019-10-08 10:34 | XMS REPORT | Continuity of Care Document ---
:1955 External Reference #:[id number] Author Name Remote Device Checks (transmitted by agent of provider Kaya Donis) Address [address] [facility] [address] [place] [address] Care Team Providers Name Role Phone Milena Rose MD - Cardiovascular Care Team Information Fabric Cutter Disease Philip Chirinos MD - Family Medicine Care Team Information Fabric Cutter [phone] Problems Active Problems Provider Date Atrial flutter [...] History Type Date Description Comments Sex Unknown Tobacco Use Start: Unknown Former Cigarette End: Unknown Smoker Smokeless Tobacco Never Used Smokeless Tobacco ETOH Use Denies alcohol use Tobacco Use Start: Unknown Patient is a former 1 pack cigarettes per End: Unknown smoker day from age [age] Quit at age 25 Restarted at age 37, 5 cigarettes daily Quit 2006 Recreational Drug Use Denies Drug Use Tobacco Use Start: Unknown Medical Marijuana not currently using. Last use 01/27 Smoking Status Reviewed: 07/24/19 Medical Marijuana not currently using. Last use 01/27 Exercise Type/Frequency Exercises regularly PT, stepper, walking Allergies, Adverse Reactions, Alerts Active Allergies Reaction [...] Milena Rose, 12/26/2018 250mcg mouth twice daily. Bucky Capsules Miconazole Nitrate apply as directed 60gm Kacy Moody 11/22/2018 2% MD Ant Cream Nystatin apply as directed 1units Kacy Moody 09/23/2018 Powder to affected area MD Ant bid Albuterol Sulfate 1-2 puffs every 4 Unknown hours as needed sob Powder Colace 1 tab every 12 Unknown 100mg Capsules hours as needed for constipation Mucinex 1 by mouth twice a Unknown 600mg Tablets day ER 12HR Atrovent HFA 1 puff twice a day Unknown 17mcg/Act Aerosol Oxycodone HCL 1 tabs by mouth Unknown 5mg every 4-6 hours as Tablets needed Torsemide 1 tab every m-w- 30tabs Jennifer Thuman, 20mg and 1/2 tab all DIRECTOR OF STUDENT FINANCIAL SERVICES Tablets other days. Metoprolol Tartrate 1 by mouth twice a Milena Rhodell, day M.D. 25mg Tablets Acetaminophen ER 1 tab by mouth q4 Unknown hours as needed 650mg Tablets ER pain Magnesium-Oxide 1 cap by mouth Unknown daily 400(241.3mg) mg Tablets Buspirone HCL Take 1 by mouth Unknown 5mg three times a day Tablets (patient states she is not currently using) [place] 3-6-9 1 cap po once daily Unknown [...] po qd 30tabs Breiman, 20mg Tablets MD Philip Immunizations Description No Information Available Vital Signs Date Vital Result Comment 07/24/2019 1:53pm Height 66 inches 5'6" Weight 157.38 lb Heart Rate 74 /min BP Systolic Sitting 108 mmHg Rue reg cuff BP Diastolic Sitting 60 mmHg Rue reg cuff O2 % BldC Oximetry 94 % On Ra BMI (Body Mass Index) 25.4 kg/m2 Neck Circumference in inches 13 06/19/2019 3:09pm Height 66 inches 5'6" Weight 156.00 lb without shoes Heart Rate 68 /min BP Systolic 110 mmHg Ra BP Diastolic 70 mmHg Ra BP Systolic Sitting 110 mmHg Ra BP Diastolic Sitting 76 mmHg Ra BMI (Body Mass Index) 25.2 kg/m2 Ejection Fraction 55-60% Echo 12/30/18 Results Test Acquired Date Facility Test Result H/L Range Note Laboratory test 07/24/2019 [facility] Ast Redraw 25 U/L Normal 13-39 [address] [place] [address] [phone] Laboratory test 07/24/2019 [facility] Magnesium 2.1 mg/dL Normal 1.9-2.7 2 finding [address] [place] [address] [phone] Potassium Redraw 4.3 mmol/L Normal 3.5-5.0 3 Comp Metabolic Panel 07/24/2019 [facility] Sodium 132 mmol/L Low 135-145 [address] [place] [address] [phone] Potassium TNP mmol/L 3.5-5.0 4 Chloride 94 mmol/L Low 101-111 Co2 Carbon Dioxide 29 mmol/L Normal 22-32 Anion Gap 9 mmol/L Normal 2-11 Glucose 108 mg/dL High 70-100 Blood Urea Nitrogen 25 mg/dL High 6-24 Creatinine 1.01 mg/dL High 0.51-0.95 BUN/Creatinine Ratio 24.8 High 8-20 Calcium 9.4 mg/dL Normal 8.6-10.3 Total Protein 7.9 g/dL Normal 6.4-8.9 Albumin 4.5 g/dL Normal 3.2-5.2 Globulin 3.4 g/dL Normal 2-4 Albumin/Globulin Ratio 1.3 Normal 1-3 Total Bilirubin 0.60 mg/dL Normal 0.2-1.0 Alkaline Phosphatase 44 U/L Normal 34-104 Alt 45 U/L Normal 7-52 Ast TNP U/L 13-39 5 Egfr Non- 55.5 >60 Egfr 67.2 >60 6 Laboratory test 07/24/2019 [facility] Magnesium 2.1 mg/dL Normal 1.9-2.7 7 finding [address] [place] [address] [phone] Basic Metabolic 03/28/2019 [facility] Sodium 133 mmol/L Low 135-145 [place] [address] [phone] Potassium 4.3 mmol/L Normal 3.5-5.0 Chloride 95 mmol/L Low 101-111 Co2 Carbon Dioxide 33 mmol/L High 22-32 Anion Gap 5 mmol/L Normal 2-11 Glucose 123 mg/dL High 70-100 Blood Urea Nitrogen 23 mg/dL Normal 6-24 Creatinine 0.87 mg/dL Normal 0.51-0.95 BUN/Creatinine Ratio 26.4 High 8-20 Calcium 8.9 mg/dL Normal 8.6-10.3 Egfr Non- 66.0 >60 Egfr 79.8 >60 8 Laboratory test 03/28/2019 [facility] Magnesium 2.1 mg/dL Normal 1.9-2.7 9 finding [address] [place] [address] [phone] Basic Metabolic 03/24/2019 [facility] Sodium 132 mmol/L Low 135-145 Panel [address] [place] [address] [phone] Potassium 4.3 mmol/L Normal 3.5-5.0 Chloride 91 mmol/L Low 101-111 Co2 Carbon Dioxide 33 mmol/L High 22-32 Anion Gap 8 mmol/L Normal 2-11 Glucose 142 mg/dL High 70-100 Blood Urea Nitrogen 23 mg/dL Normal 6-24 Creatinine 0.90 mg/dL Normal 0.51-0.95 BUN/Creatinine Ratio 25.6 High 8-20 Calcium 9.2 mg/dL Normal 8.6-10.3 Egfr Non- 63.4 >60 Egfr 76.8 >60 10 Laboratory test 03/24/2019 [facility] Magnesium 2.2 mg/dL Normal 1.9-2.7 11 finding [address] [place] [address] [phone] 1 REDRAW NO SHOLA CHARGE 2 REDRAW NO SHOLA CHARGE 3 REDRAW NO SHOLA CHARGE 4 REDRAW NO SHOLA CHARGE 5 REDRAW NO SHOLA CHARGE 6 Because ethnic data is not always readily [...] 15-29 5 Kidney failure <15 (or dialysis) 7 REDRAW NO SHOLA CHARGE 8 Because ethnic data is not always [...] 5 Kidney failure <15 (or dialysis) 9 run STAT 10 Because ethnic data is not always [...] 5 Kidney failure <15 (or dialysis) 11 Please run STAT. Procedures Date Code Description Status 06/19/2019 17308 Icd Eval Sing,Dual,Multi Lead Remote Recpt Transm Tech Completed Rev Tech S 06/19/2019 38325 Icd Eval Sing,Dual,Multi Lead Remote Recpt Transm Tech Completed Rev Tech S 06/19/2019 37798 Pacemaker Check Remote Up To 90Days Completed Single,Dual,Multiple Lead 06/19/2019 98166 Pacemaker Check Remote Up To 90Days Completed Single,Dual,Multiple Lead 05/24/2019 84685 I&D Of Abscess Complicated Completed 07/27/2018 [id number] Mammogram Completed Medical Devices Description No Information Available Encounters Type Date Location Provider Dx Diagnosis Office Visit 07/24/2019 Pulmonology And Hortencia Ceja, G47.9 Sleep disorder, 2:00p Sleep Services Of unspecified [facility] Office Visit 06/19/2019 [facility] Milena Rose, I48.0 Paroxysmal atrial 3:20p Of [facility] M.D. fibrillation Z95.0 Presence of cardiac pacemaker I50.42 Chronic combined systolic and diastolic hrt fail C85.90 Non-Hodgkin lymphoma, unspecified, unspecified site I25.10 Athscl heart disease of [place] coronary artery w/o ang pctrs I35.0 Nonrheumatic aortic (valve) stenosis C50.912 Malignant neoplasm of unspecified site of left female breast Office Visit 04/03/2019 2:30p [facility] Jennifer Phelps, I48.0 Paroxysmal atrial DIRECTOR OF [employer]UDENT [employer]CIAL SERVICES fibrillation I42.9 Cardiomyopathy, unspecified I35.0 Nonrheumatic aortic (valve) stenosis Z79.899 Other snf (current) drug therapy Z95.0 Presence of cardiac pacemaker Assessments Date Code Description Provider 07/24/2019 G47.9 Sleep disorder, unspecified Hortencia Ceja MD 06/19/2019 I48.0 Paroxysmal atrial fibrillation Milena Rose M.D. 06/19/2019 I48.0 Paroxysmal atrial fibrillation Milena Rose M.D. 06/19/2019 I48.0 Paroxysmal atrial fibrillation Remote Device Checks 06/19/2019 I42.9 Cardiomyopathy, unspecified Milena Rose M.D. 06/19/2019 Z95.0 Presence of cardiac pacemaker Milena Rose M.D. 06/19/2019 I42.9 Cardiomyopathy, unspecified Remote Device Checks 06/19/2019 I49.5 Sick sinus syndrome Milena Rose M.D. 06/19/2019 I50.42 Chronic combined systolic (congestive) and Milena Rose M.D. diastolic (conges 06/19/2019 I49.5 Sick sinus syndrome Remote Device Checks 06/19/2019 Z95.0 Presence of cardiac pacemaker Milena Rose M.D. 06/19/2019 C85.90 Non-Hodgkin lymphoma, unspecified, Milena Rose M.D. unspecified site 06/19/2019 Z95.0 Presence of cardiac pacemaker Remote Device Checks 06/19/2019 I25.10 Atherosclerotic heart disease of [place] Milena Rose M.D. coronary artery without angina pectoris 06/19/2019 I35.0 Nonrheumatic aortic (valve) stenosis Milena Rose M.D. 06/19/2019 C50.912 Malignant neoplasm of unspecified site of Milena Rose M.D. left female breast 05/31/2019 L72.3 Sebaceous cyst Jarvis Coppola MD 05/31/2019 L02.212 Cutaneous abscess of back [any part, except Jarvis Coppola MD buttock] 05/24/2019 L72.3 Sebaceous cyst Jarvis Coppola MD 05/24/2019 L02.212 Cutaneous abscess of back [any part, except Jarvis Coppola MD buttock] 04/03/2019 I48.0 Paroxysmal atrial fibrillation Jennifer Phelps NP 04/03/2019 I42.9 Cardiomyopathy, unspecified Jennifer Phelps NP 04/03/2019 I35.0 Nonrheumatic aortic (valve) stenosis Jennifer Phelps NP 04/03/2019 Z79.899 Other meterman (current) drug therapy Jennifer Phelps NP 04/03/2019 Z95.0 Presence of cardiac pacemaker Jennifer Phelps NP Plan of Treatment Future Appointment(s):10/30/2019 1:00 pm - Leonila Barnett NP at [facility]11/14/2019 1:00 pm - Raffy Hernandez MD at [facility] of [facility]10/19/2019 1:30 pm - Mielna Rose M.D. at [facility]10/19/2019 1:00 pm - Ica Pacer Schedule at [facility]07/24/2019 - Hortencia Ceja MDG47.9 Sleep disorder, unspecifiedFollow up: 6 weeks Functional Status Description No Information Available Mental Status Description No Information Available Referrals Refer to Reason for Referral Status Appt Date Hortencia Ceja MD Sent [address] [place] [address] [phone]
--- OUTSIDE RECORDS SUMMARY | 2019-10-08 10:34 | XMS REPORT | Continuity of Care Document ---
:1955 External Reference #:[id number] Author Name Remote Device Checks (transmitted by agent of provider Raine Wong) Address [address] [facility] [address] [place] [address] Care Team Providers Name Role Phone Milena Rose MD - Cardiovascular Care Team Information Scourer Disease Philip Chirinos MD - Family Medicine Care Team Information Scourer Problems Active Problems Provider Date Atrial flutter [...] Milena Rose, 12/26/2018 250mcg mouth twice daily. JeanaDJudi Capsules Miconazole Nitrate apply as directed 60gm [...] as Tablets needed Torsemide 1 tab every m-w-f 30tabs Jennifer Thuman, 20mg and 1/2 tab all GAS DISPENSER Tablets other days. Metoprolol Tartrate 1 by mouth twice a Milena Royalton, day M.D. 25mg Tablets Acetaminophen ER 1 tab by mouth q4 Unknown hours as needed 650mg Tablets ER pain Magnesium-Oxide 1 cap by mouth Unknown daily 400(241.3mg) mg Tablets Buspirone HCL Take 1 by mouth Unknown 5mg three times a day Tablets (patient states she is not currently using) [place] 3-6-9 1 cap po once daily Unknown [...] Result H/L Range Note Laboratory test 07/24/2019 [facility] Ast Redraw 25 U/L Normal 13-39 [address] [place] [address] [phone] Laboratory test 07/24/2019 [facility] Magnesium 2.1 mg/dL Normal 1.9-2.7 2 finding [address] [place] [address] [phone] Potassium Redraw 4.3 mmol/L Normal 3.5-5.0 3 Comp Metabolic Panel 07/24/2019 [facility] Sodium 132 mmol/L Low 135-145 [address] [place] [address] [phone] Potassium TNP mmol/L 3.5-5.0 4 Chloride 94 [...] Egfr 67.2 >60 6 Laboratory test 07/24/2019 [facility] Magnesium 2.1 mg/dL Normal 1.9-2.7 7 finding [address] [place] [address] [phone] 1 REDRAW NO SHOLA CHARGE 2 REDRAW [...] (or dialysis) 7 REDRAW NO SHOLA CHARGE Procedures Date Code Description Status 09/18/2019 47138 Icd Eval Sing,Dual,Multi Lead Remote Recpt Transm Tech Completed Rev Tech S 09/18/2019 24872 Icd Eval Sing,Dual,Multi Lead Remote Recpt Transm Tech Completed Rev Tech S 09/18/2019 63818 Pacemaker Check Remote Up To 90Days Completed Single,Dual,Multiple Lead 09/18/2019 16390 Pacemaker Check Remote Up To 90Days Completed Single,Dual,Multiple Lead 06/19/2019 76373 Icd Eval Sing,Dual,Multi Lead Remote Recpt Transm Tech Completed Rev Tech S 06/19/2019 79821 Icd Eval Sing,Dual,Multi Lead Remote Recpt Transm Tech Completed Rev Tech S 06/19/2019 62079 Pacemaker Check Remote Up To 90Days Completed Single,Dual,Multiple Lead 06/19/2019 00851 Pacemaker Check Remote Up To 90Days Completed Single,Dual,Multiple Lead 05/24/2019 37256 I&D Of Abscess Complicated Completed 07/27/2018 [id number] Mammogram Completed Medical Devices Description No Information Available Encounters Type Date Location Provider Dx Diagnosis Office Visit 07/24/2019 [facility] Hortencia Ceja, G47.9 Sleep disorder, 2:00p Sleep Services Of unspecified [facility] Office Visit 06/19/2019 [facility] Milena Rose, I48.0 Paroxysmal atrial 3:20p Of [facility] [place] fibrillation Z95.0 Presence of cardiac pacemaker I50.42 Chronic combined systolic and diastolic hrt fail C85.90 Non-Hodgkin lymphoma, unspecified, unspecified site I25.10 Athscl heart disease of [place] coronary artery w/o ang pctrs I35.0 Nonrheumatic aortic (valve) stenosis C50.912 Malignant neoplasm of unspecified site of left female breast Assessments Date Code Description Provider 09/18/2019 I48.0 Paroxysmal atrial fibrillation Milena Rose M.D. 09/18/2019 I48.0 Paroxysmal atrial fibrillation Remote Device Checks 09/18/2019 I42.9 Cardiomyopathy, unspecified Milena Rose M.D. 09/18/2019 I42.9 Cardiomyopathy, unspecified Remote Device Checks 09/18/2019 Z95.0 Presence of cardiac pacemaker Milena Rose M.D. 09/18/2019 Z95.0 Presence of cardiac pacemaker Remote Device Checks 09/18/2019 I49.5 Sick sinus syndrome Milena Rose M.D. 09/18/2019 I49.5 Sick sinus syndrome Remote Device Checks 07/24/2019 G47.9 Sleep disorder, unspecified Hortencia Ceja [...] Rose M.D. 06/19/2019 C85.90 Non-Hodgkin lymphoma, unspecified, Mielna Rose M.D. unspecified site 06/19/2019 Z95.0 Presence of cardiac pacemaker Remote Device Checks 06/19/2019 I25.10 Atherosclerotic heart disease of [place] Milena Rose M.D. coronary artery without angina [...] Cutaneous abscess of back [any part, except Jarivs Coppola MD buttock] Plan of Treatment Future Appointment(s):10/30/2019 1:00 pm - Leonila Barnett NP at [facility]11/14/2019 1:00 pm - [facility]10/19/2019 1:30 pm - Milena Rose M.D. at [facility]10/19/2019 1:00 pm - Ica Pacer Schedule at [facility]07/24/2019 - Hortencia Ceja MDG47.9 Sleep disorder, unspecifiedFollow up: 6 weeks Functional Status Description No Information Available Mental Status Description No Information Available Referrals Description No Information Available
--- OUTSIDE RECORDS SUMMARY | 2019-10-08 10:34 | XMS REPORT | Continuity of Care Document ---
:1955 External Reference #:[id number] Author Name Hortencia Ceja MD (transmitted by agent of provider Sandy Salas) Address [address], [address] [place] [address] Care Team Providers Name Role Phone Milena Rose MD - Cardiovascular Care Team Information Track Broom Operator [phone] Disease Philip Chirinos MD - Family Medicine Care Team Information Track Broom Operator Problems Active Problems Provider Date Atrial flutter [...] Jennifer Thuman, 20mg and 1/2 tab all UTILITY OPERATOR YARN Tablets other days. Metoprolol Tartrate 1 by mouth twice a Milena Quinter, day M.D. 25mg Tablets Acetaminophen ER 1 tab by mouth q4 Unknown hours as needed 650mg Tablets ER pain Magnesium-Oxide 1 cap by mouth Unknown daily 400(241.3mg) mg Tablets Buspirone HCL Take 1 by mouth Unknown 5mg three times a day Tablets (patient states she is not currently using) [place] 3-6-9 1 cap po once daily Unknown [...] Result H/L Range Note Laboratory test 07/24/2019 [facility] Ast Redraw 25 U/L Normal 13-39 [address] [place] [address] [phone] Laboratory test 07/24/2019 [facility] Magnesium 2.1 mg/dL Normal 1.9-2.7 2 finding [address] [place] [address] [phone] Potassium Redraw 4.3 mmol/L Normal 3.5-5.0 3 Comp Metabolic Panel 07/24/2019 [facility] Sodium 132 mmol/L Low 135-145 [address] [place] [address] [phone] Potassium TNP mmol/L 3.5-5.0 4 Chloride 94 [...] Egfr 67.2 >60 6 Laboratory test 07/24/2019 [facility] Magnesium 2.1 mg/dL Normal 1.9-2.7 7 finding [address] [place] [address] [phone] 1 REDRAW NO SHOLA CHARGE 2 REDRAW [...] CHARGE Procedures Date Code Description Status 09/18/2019 45728 Icd Eval Sing,Dual,Multi Lead Remote Recpt Transm Tech Completed Rev Tech S 09/18/2019 76365 Icd Eval Sing,Dual,Multi Lead Remote Recpt Transm Tech Completed Rev Tech S 09/18/2019 46342 Pacemaker Check Remote Up To 90Days Completed Single,Dual,Multiple Lead 09/18/2019 89108 Pacemaker Check Remote Up To 90Days Completed Single,Dual,Multiple Lead 06/19/2019 28513 Icd Eval Sing,Dual,Multi Lead Remote Recpt Transm Tech Completed Rev Tech S 06/19/2019 22966 Icd Eval Sing,Dual,Multi Lead Remote Recpt Transm Tech Completed Rev Tech S 06/19/2019 85229 Pacemaker Check Remote Up To 90Days Completed Single,Dual,Multiple Lead 06/19/2019 40577 Pacemaker Check Remote Up To 90Days Completed Single,Dual,Multiple Lead 05/24/2019 59157 I&D Of Abscess Complicated Completed 07/27/2018 [id number] Mammogram Completed Medical Devices Description No Information Available Encounters Type Date Location Provider Dx Diagnosis Office Visit 07/24/2019 Pul[facility]ology And Hortencia Marcial, G47.9 Sleep disorder, 2:00p Sleep Services Of unspecified [employer] Office Visit 06/19/2019 [facility] Milena Rose, I48.0 Paroxysmal atrial 3:20p Of [place] Lawler fibrillation Z95.0 Presence of cardiac pacemaker I50.42 Chronic combined systolic and diastolic hrt fail C85.90 Non-Hodgkin lymphoma, unspecified, unspecified site I25.10 Athscl heart disease of [place] coronary artery w/o ang pctrs I35.0 Nonrheumatic [...] Checks 06/19/2019 I25.10 Atherosclerotic heart disease of [place] Milena Rose M.D. coronary artery without angina [...] [any part, except Jarvis Coppola MD buttock] Plan of Treatment Future Appointment(s):10/30/2019 1:00 pm - Leonila Barnett NP at [facility]11/14/2019 1:00 pm - Raffy Hernandez MD at [facility]10/19/2019 1:30 pm - Milena Rose M.D. at [facility]10/19/2019 1:00 pm - Ica Pacer Schedule at [facility]07/24/2019 - Hortencia Ceja MDG47.9 Sleep disorder, unspecifiedFollow up: 6 weeks Functional Status Description No Information Available Mental Status Description No Information Available Referrals Description No Information Available
[2019-10-08 10:35] LABS: Albumin 3.7 g/dL (3.2-5.2); Albumin/Globulin Ratio 1.1 (1-3); Alkaline Phosphatase 47 U/L (34-104); BUN/Creatinine Ratio 30.7 (8-20); Blood Urea Nitrogen 27 mg/dL (6-24); C Reactive Protein 200.17 mg/L (<8.01); CO2 Carbon Dioxide 25 mmol/L (22-32); Calcium 8.4 mg/dL (8.6-10.3); Chloride 78 mmol/L (101-111); EGFR African American 78.5 (>60); EGFR Non-African American 64.9 (>60); Globulin 3.4 g/dL (2-4); Glucose 149 mg/dL (70-100); Influenza A Molecular Negative (Negative); Influenza B Molecular Negative (Negative); Total Protein 7.1 g/dL (6.4-8.9)
[2019-10-08 10:39] LABS: CKMB ng/mL 4.8 ng/mL (0.6-6.3)
[2019-10-08 10:41] LABS: INR 5.3 (0.82-1.09)
[2019-10-08 10:46] LABS: Troponin I 0.04 ng/mL (<0.03)
[2019-10-08 10:47] LABS: ABS Basophils 0.1 10^3/ul (0-0.2); ABS Eosinophils 0.2 10^3/ul (0-0.6); ABS Lymphocytes 0.1 10^3/ul (1.0-4.8); ABS Monocytes 0.3 10^3/ul (0-0.8); ABS Neutrophils 19.9 10^3/ul (1.5-7.7); Eosinophil % 1.1 %; Lymphocyte % 0.7 %; Nucleated Red Blood Cells % 0.2
[2019-10-08 11:12] LABS: ALT 33 U/L (7-52); Anion Gap 9 mmol/L (2-11); Creatine Kinase 74 U/L (10-223)
[2019-10-08 11:14] LABS: Sodium 112 mmol/L (135-145)
[2019-10-08] MEDS ORDERED: Cefepime 2 GM in Dextrose(*) 2 GM/50 ML BAG IV ONE (11:31)
[2019-10-08 11:59] LABS: Urine Appearance Clear; Urine Bilirubin Negative (Negative); Urine Blood 3+ (Negative); Urine Color Yellow; Urine Glucose Negative (Negative); Urine Ketones Trace (Negative); Urine Nitrite Negative (Negative); Urine Protein 2+(100 mg/dL) (Negative); Urine Specific Gravity 1.014 (1.010-1.030); Urine Urobilinogen Negative (Negative)
[2019-10-08] MEDS ORDERED: NS 0.9% 500 ML* 500 ML IV SCH (12:00)
[2019-10-08] MEDS ORDERED: NS 0.9% 1000 ML** 500 ML IV SCH (12:00)
[2019-10-08 12:01] LABS: Urine Bacteria Absent (Absent); Urine Red Blood Cell 3+(>10/hpf) (Absent); Urine Squamous Epithelial Cell Present (Absent); Urine White Blood Cell 2+(11-20/hpf) (Absent)
[2019-10-08] MEDS ORDERED: Azithromycin 500 mg/250 ml NS 500 MG/250 ML BAG IVPB SCH (13:00)
[2019-10-08] MEDS ORDERED: cefTRIAXone(*) 1 GM in NS 0.9% 50 ML* 50 ML IVPB SCH (13:00)
--- NOTE | 2019-10-08 14:03 | HP ---
ADMISSION HISTORY AND PHYSICAL: DATE OF ADMISSION: 10/08/19 REASON FOR ADMISSION: Pneumonia and hyponatremia. HISTORY OF PRESENT ILLNESS: This patient is a 64-year-old female with multiple medical problems (including COPD, hypothyroidism, breast cancer (left breast), aortic stenosis, atrial fibrillation, right brachial plexopathy, and chronic lymphedema of the left arm) who comes to the ED today with a 3- to 4-day history of increasing shortness of breath, which began after her physical therapy sessions stopped (due to COVID-19). She denies cough, sputum production , fever, chills, or chest pains; but the patient's temperature was 101 in the field. In the ED, the chest x-ray showed a possible right lower lobe infiltrate , and the serum sodium was 112. 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 OUTPATIENT MEDICATIONS: 1. Synthroid 75 mcg daily. 2. Atrovent inhaler. 3. Tikosyn 250 mcg twice a day. 4. Ranitidine 150 mg in the morning. 5. Metoprolol 25 mg twice a day. 6. Oxycodone p.r.n. 7. Torsemide 20 mg daily. 8. Xarelto 20 mg daily. ALLERGIES: Drug allergies include CLINDAMYCIN which causes tachycardia, DRONEDARONE which causes anaphylactic shock, PENICILLIN which causes anaphylactic shock, SOTALOL which causes fatigue, ATENOLOL which causes an unknown reaction, and LEVOFLOXACIN which causes itching. FAMILY AND SOCIAL HISTORY: The patient lives alone and is not employed. She does not smoke and there is no history of illicit drug abuse. There are no children and the patient's brother is the next of kin and the healthcare proxy. REVIEW OF SYSTEMS: Noncontributory. PHYSICAL EXAMINATION GENERAL: The patient is alert, oriented, and breathing comfortably. HEENT: Oxygen mask in place. No facial asymmetry. NECK: Supple. No JVD. LUNGS: Crackles at the right base. CARDIAC EXAM: Revealed a regular rhythm and no murmurs. ABDOMEN: Soft and nontender. EXTREMITIES: Left arm 3+ edema. Right arm showed cyanosis involving all fingers of the right hand. DIAGNOSTIC STUDIES/LAB DATA: Admission laboratory data: Sodium was 112, potassium is pending, chloride 78, BUN and creatinine normal, glucose 149. Total bilirubin 1.7. Liver enzymes normal. C-reactive protein was 200. White count was 20.7 with normal platelets and a normal hematocrit. Chest x-ray showed some volume loss and opacification at the right base which was worse than prior x-rays. EKG: sinus rhythm and QTc less than 500 milliseconds. IMPRESSION: Major problems are: 1. Possible pneumonia at right base 2. Asymptomatic hyponatremia - could be SIADH from pneumonia or breast CA. MANAGEMENT PLAN: The patient will be started on empiric therapy for community- acquired pneumonia with ceftriaxone and azithromycin. A COVID-19 antigen assay will also be sent and the patient will be isolated, pending results. The hyponatremia will be evaluated with a urine sodium and urine osmolality and if this represents SIADH, will be managed accordingly. CRITICAL CARE TIME: 60 minutes. [id number]/CPS #: [id number]
[2019-10-08] MEDS: DOXYcycline IV* 100 MG in NS 0.9% 250 ML* 250 ML IVPB SCH (14:52)
[2019-10-08] MEDS: oxyCODONE/Acetamin 5/325 MG* TAB PO PRN ×2 (16:22→20:50)
--- NOTE | 2019-10-08 17:36 | PN ---
Progress Note - Progress Note Date of Service: 10/08/19 Note: Hyponatremia could be due to diuresis with water replacement. Urine sodium and osmolality pending.
[2019-10-08] MEDS ORDERED: NS 0.9% 1000 ML** 1,000 ML IV SCH (18:15)
[2019-10-08] MEDS: Dofetilide CAP* 250 MCG PO SCH (20:44)
[2019-10-08] MEDS: Metoprolol Tartrate TAB* 25 MG PO SCH (20:45)
[2019-10-08] MEDS: Famotidine TAB* 20 MG PO SCH (20:45)
[2019-10-08] MEDS ORDERED: Rivaroxaban TAB(*) 20 MG TAB PO SCH (21:00)
[2019-10-09] MEDS: clonazePAM TAB(*) 1 MG PO PRN (00:15)
[2019-10-09] MEDS: DOXYcycline IV* 100 MG in NS 0.9% 250 ML* 250 ML IVPB SCH ×2 (01:50→15:19)
[2019-10-09 05:44] LABS: Potassium Redraw 3.2 mmol/L (3.5-5.0)
[2019-10-09 06:16] LABS: Potassium 3.2 mmol/L (3.5-5.0)
[2019-10-09 06:32] LABS: BUN/Creatinine Ratio 36.5 (8-20); EGFR African American 144.1 (>60); EGFR Non-African American 119.1 (>60)
[2019-10-09 06:40] LABS: Magnesium 1.3 mg/dL (1.9-2.7)
[2019-10-09] MEDS ORDERED: Magnesium Sulf 4 GM/100 ML IV* 4,000 MG/100 ML BAG IVPB ONE (06:45)
[2019-10-09] MEDS: KCL 20 MEQ/100 ML IVPREMIX* 20 MEQ/100 ML BAG IV SCH ×2 (08:18→10:40)
[2019-10-09] MEDS ORDERED: Torsemide TAB 10 MG PO SCH (09:00)
[2019-10-09 09:33] LABS: Phosphorus 2.1 mg/dL (2.5-5.0)
[2019-10-09] MEDS: Metoprolol Tartrate TAB* 25 MG PO SCH ×2 (10:39→21:19)
[2019-10-09] MEDS: Famotidine TAB* 20 MG PO SCH ×2 (10:39→21:19)
[2019-10-09] MEDS: Levothyroxine TAB* 75 MCG TAB PO SCH (10:39)
[2019-10-09] MEDS: oxyCODONE/Acetamin 5/325 MG* TAB PO PRN ×3 (10:43→18:27)
[2019-10-09] MEDS ORDERED: GuaiFENesin DM 100 mg/10 mg in 5 ML UDC PO PRN (11:02)
[2019-10-09 11:07] LABS: INR 2.39 (0.82-1.09)
--- NOTE | 2019-10-09 12:40 | PN ---
Date of Service: 10/09/19 Critical Care Services: Ms. Traylor states that she is feeling better today. She describes having difficulty sleeping at night for the past few days due to SOB but was able to sleep well last night. She continues ton 2l NC. She denies chest pain. She is tolerating oral intake well and ambulating independently in her room. She confirms that she was having increasing shortness of breath for 4 days prior to admission. She has no skin breakdown or rashes. Vital Signs: Temp Pulse Resp BP SpO2 FiO2 97.9 F 69 28 136/57 100 10/09/19 08:00 10/09/19 11:00 10/09/19 11:00 10/09/19 10:01 10/09/19 11:00 Physical Exam: General: Alert, NAD HEENT: Normocephalic, atraumatic, non-icteric sclera, moist oral mucosa Neck: soft, supple, no JVD CV: Regular rate and rhythm, no murmurs or rubs Pulm/Chest: Diminished in right base, no wheezes, crackles or rhonchi noted Abdomen/GI: soft, nontender, nondistended, +BS noted MSK/Skin: warm, dry, intact, +2 pulses+, chronic left upper extremity edema Neuro: A&Ox3, no gross focal deficits Psych: Appropriate affect Fluid Balance (Past 24 Hours): I= O= Net Intake & Output 10/07/19 10/08/19 10/09/19 10/10/19 06:59 06:59 06:59 06:59 Intake Total 2233 240 Output Total 800 Balance 1433 240 Weight 182 lb 8.684 oz Intake: IV Fluids 1083 NS 533 IVPB 315 doxy 315 Oral 835 240 Output: Urine 800 Other: Estimated Void Small Labs: Laboratory Results - last 24 hr 10/08/19 10/08/19 10/08/19 10:00 17:00 17:00 INR (Anticoag Therapy) Sodium Potassium Chloride Carbon Dioxide Anion Gap BUN Creatinine Est GFR ( Amer) Est GFR (Non-Af Amer) BUN/Creatinine Ratio Glucose Serum Osmolality 262 L Calcium Ionized Calcium Phosphorus Magnesium AST 25-OH Vitamin D Total PTH Intact Calcium (PTH Intact) Urine Osmolality 558 U Sodium Concentration < 18 10/09/19 10/09/19 10/09/19 05:12 05:12 08:42 INR (Anticoag Therapy) Sodium 124 L D Potassium 3.2 L 3.2 L Chloride 95 L Carbon Dioxide 21 L Anion Gap 8 BUN 19 Creatinine 0.52 Est GFR ( Amer) 144.1 Est GFR (Non-Af Amer) 119.1 BUN/Creatinine Ratio 36.5 H Glucose 125 H Serum Osmolality Calcium 6.0 L* Ionized Calcium Phosphorus 2.1 L Magnesium 1.3 L AST 19 25-OH Vitamin D Total 70.0 H PTH Intact Calcium (PTH Intact) Urine Osmolality U Sodium Concentration 10/09/19 10/09/19 10/09/19 08:42 08:42 10:37 INR (Anticoag Therapy) 2.39 H Sodium Potassium Chloride Carbon Dioxide Anion Gap BUN Creatinine Est GFR ( Amer) Est GFR (Non-Af Amer) BUN/Creatinine Ratio Glucose Serum Osmolality Calcium Ionized Calcium 0.96 L Phosphorus Magnesium AST 25-OH Vitamin D Total PTH Intact 41.9 Calcium (PTH Intact) 8.3 L Urine Osmolality U Sodium Concentration Studies: Chest xray 10/08/19: IMPRESSION: CHRONIC PLEURAL CHANGES IN THE RIGHT LUNG BASE. LEFT LUNG FIELD IS CLEAR. Impression: Ms. Traylor is a 64 yo F with a PMH Hodgkins with R chest radiation, COPD, CHF, pulmonary hypertension, R VATS procedure for recurrent loculated pleural effusions, breast cancer with left arm lymphedema who was admitted on 10/08/19 with pneumonia and hyponatremia, now with group B strep bacteremia. Plan: Neuro: - A/O x 3 - No active issues CVS: - Hemodynamically stable - Hx of afib, continue tikosyn, replete K+ > 4, Mag > 2 - Recheck mag at 1400, replete mag and then calcium - Continue home torsemide and metoprolol - Holding xarelto due to elevated INR Resp: - Suspect pneumonia - SpO2 > 92% on 2L NC ID: - group b strep bacteremia, ? respiratory source - continue ceftriaxone 2grams daily - COVID-19 rule out pending - needs echocardiogram to rule out endocarditis GI: -Nutrition: heart healthy -GI prophylaxis: famotidine Renal: - Hyponatremia resolving - Suspect mixed etiology with component of SIADH from pneumonia - Continue fluid restriction - Recheck in AM Heme: - No active issues. Endo: - No hx of DM Musculsk: - OOB ad fermin Wounds: -none DVT prophylaxis: SCDs Disposition: Patient's hyponatremia resolved and she is hemodynamically stable , transfer to medical floor Patient clinical status: Stable, improved Code Status: DNR/DNI Total Critical Care time is 40 minutes, excluding procedures/teaching
[2019-10-09] MEDS: Dofetilide CAP* 250 MCG PO SCH (13:13)
[2019-10-09] MEDS: cefTRIAXone(*) 2 GM in NS 0.9% 50 ML* 50 ML IVPB SCH (13:13)
[2019-10-09 16:24] LABS: Magnesium 2.2 mg/dL (1.9-2.7)
[2019-10-09 16:54] LABS: BUN/Creatinine Ratio 34.5 (8-20); Blood Urea Nitrogen 20 mg/dL (6-24); CO2 Carbon Dioxide 18 mmol/L (22-32); Chloride 99 mmol/L (101-111); Glucose 111 mg/dL (70-100); Sodium 141 mmol/L (135-145)
[2019-10-09 16:58] LABS: Anion Gap 24 mmol/L (2-11); Calcium 5.1 mg/dL (8.6-10.3)
[2019-10-09] MEDS ORDERED: KCL 20 MEQ/100 ML IVPREMIX* 20 MEQ/100 ML BAG IV SCH (17:00)
[2019-10-09] MEDS ORDERED: Calcium Gluconate INJ* 2 GM in NS 0.9% 100 ML* 100 ML IV ONE (18:00)
[2019-10-09 22:37] LABS: Calcium 9.8 mg/dL (8.6-10.3); EGFR African American 87.7 (>60); EGFR Non-African American 72.4 (>60)
[2019-10-09] MEDS ORDERED: Sodium Chloride 3% HYPERTONIC* 500 ML IV ONE (23:21)
[2019-10-09] MEDS ORDERED: NS 0.9% 1000 ML** 1,000 ML IV SCH (23:45)
[2019-10-10] MEDS ORDERED: Sodium Polystyrene ORAL.SUSP* 15 GM/60 ML BTL PO ONE
[2019-10-10] MEDS: NS 0.9% 1000 ML** 1,000 ML IV SCH ×3 (00:55→16:51)
[2019-10-10] MEDS: oxyCODONE/Acetamin 5/325 MG* TAB PO PRN ×2 (01:10→16:51)
[2019-10-10] MEDS: Dofetilide CAP* 250 MCG PO SCH ×2 (01:10→13:02)
[2019-10-10] MEDS ORDERED: Benzocaine/Menthol LOZ* 1 LOZENGE PO PRN (04:30)
[2019-10-10] MEDS: clonazePAM TAB(*) 1 MG PO PRN (05:01)
[2019-10-10 05:45] LABS: BUN/Creatinine Ratio 43.3 (8-20); Calcium 7.3 mg/dL (8.6-10.3); EGFR African American 107.6 (>60); EGFR Non-African American 88.9 (>60); Potassium 4.4 mmol/L (3.5-5.0)
--- NOTE | 2019-10-10 07:20 | PN ---
Hospitalist Progress Note Date of Service: 10/09/19 Labs were drawn by a metal machine operator this evening that had been previously ordered. According to nursing, the last two sets of blood draws had been pulled off of the patient's IV due to difficulties with venapuncture. Labs resulting, revealing a sodium of 116 and a potassium of 6.0. One time dose of kayexalate was ordered. The patient was found sitting up in her room, eating her dinner, did not appear to be ill looking. However, she stated that she felt she was not thinking as clearly as she normally does. Was able to answer all orientation questions correctly but also was not thinking completely coherently. Heart rate was irregular. Denied feeling fever, chilld, chest pain, shortness of breath, abdominal pain, nausea, or vomiting. After discussing case with Dr. Lopez, decision was made to transfer patient to ICu for closer monitoring. Neurochecks and saline ordered.
[2019-10-10] MEDS: Levothyroxine TAB* 75 MCG TAB PO SCH (08:52)
[2019-10-10] MEDS: Famotidine TAB* 20 MG PO SCH ×2 (08:52→21:39)
[2019-10-10] MEDS: Metoprolol Tartrate TAB* 25 MG PO SCH ×2 (08:52→21:39)
[2019-10-10] MEDS: cefTRIAXone(*) 2 GM in NS 0.9% 50 ML* 50 ML IVPB SCH (08:52)
[2019-10-10] MEDS: Albuterol HFA INHALER* 8 gm MDI INH PRN (11:08)
[2019-10-10 12:07] LABS: Magnesium 1.9 mg/dL (1.9-2.7)
--- NOTE | 2019-10-10 15:06 | PN ---
Date of Service: 10/10/19 Critical Care Services: Transferred back to ICU for hyponatremia/hyperkalemia. Vital Signs: Temp Pulse Resp BP SpO2 FiO2 36.0 C 73 26 119/78 92 10/10/19 12:00 10/10/19 14:01 10/10/19 14:01 10/10/19 14:00 10/10/19 14:01 Physical Exam: Gen: OOB in chair without complaint HEENT: NCAT, PERRL Lungs: clear Cardiac: S1S2 regular Abdomen: benign Extremities: stable baseline edema LUE, stable baseline acrocyanotic digits right hand Neuro: A&O, grossly non-focal Fluid Balance (Past 24 Hours): I= O= Net Intake & Output 10/08/19 10/09/19 10/10/19 10/11/19 06:59 06:59 06:59 06:59 Intake Total 2233 2190 180 Output Total 800 300 800 Balance 1433 1890 -620 Weight 82.8 kg Intake: IV Fluids 1083 860 ABX - CEFTRIAXONE 100 NS 533 760 IVPB 315 300 doxy 315 magnesium 100 potassium chloride 200 Oral 835 1030 180 Output: Urine 800 300 800 Other: Estimated Void Small Medium # Voids 1 Labs: Laboratory Results - last 24 hr 10/08/19 10/09/19 10/09/19 10:00 15:17 22:00 Sodium 112 L* 141 D 116 L* D Potassium TNP TNP 6.0 H D Chloride 78 L 99 L 86 L Carbon Dioxide 25 18 L 24 Anion Gap 9 24 H 6 BUN 27 H 20 28 H Creatinine 0.88 0.58 0.80 Est GFR ( Amer) 78.5 127.0 87.7 Est GFR (Non-Af Amer) 64.9 105.0 72.4 BUN/Creatinine Ratio 30.7 H 34.5 H 35.0 H Glucose 149 H 111 H 134 H Calcium 8.4 L 5.1 L* 9.8 Magnesium 2.2 Total Bilirubin 1.70 H AST TNP ALT 33 Alkaline Phosphatase 47 Total Creatine Kinase 74 CK-MB (CK-2) 4.8 Troponin I 0.04 H* C-Reactive Protein 200.17 H Total Protein 7.1 Albumin 3.7 Globulin 3.4 Albumin/Globulin Ratio 1.1 10/10/19 05:10 Sodium 121 L Potassium 4.4 D Chloride 93 L Carbon Dioxide 21 L Anion Gap 7 BUN 29 H Creatinine 0.67 Est GFR ( Amer) 107.6 Est GFR (Non-Af Amer) 88.9 BUN/Creatinine Ratio 43.3 H Glucose 138 H Calcium 7.3 L Magnesium 1.9 Total Bilirubin AST ALT Alkaline Phosphatase Total Creatine Kinase CK-MB (CK-2) Troponin I C-Reactive Protein Total Protein Albumin Globulin Albumin/Globulin Ratio Nutrition: Eating well Impression: Recurrent Hyponatremia / hyperkalemia Plan: Hyponatremia - I ordered TSH to assure her replacement was adequate. Additioonally, its intersting that hyponatremia and hyperkalemia presented together...suggests Type IV RTA...history of Hodgkins only that much more makes the adrenals suspect...cortisol ordered for the AM. If any question would stim her. Na improving and she feels well. OK to floor. Hyperkalemia - was replaced yesterday but the possibility of Type IV RTA needs to be entertained as above. Afib - on Tikosyn, adequate VR control. Was on Xarelto, came in with INR at 6. Today the INR is in the 2s. May be time to restart the Xarelto or change to warfarin soon. Pt not anxious to go back to warfarin. COVID - [facility] PCR pending. No symptoms. OK to floor.
[2019-10-10] MEDS: Nystatin TOP POWDER* 15 GM BTL TOPICAL SCH (21:39)
[2019-10-11] MEDS: Dofetilide CAP* 250 MCG PO SCH ×3 (00:28→16:53)
[2019-10-11] MEDS: clonazePAM TAB(*) 1 MG PO PRN ×2 (01:03→23:55)
[2019-10-11] MEDS: Famotidine TAB* 20 MG PO SCH ×2 (07:50→21:36)
[2019-10-11] MEDS: Ipratropium HFA INHALER(NF) (ALTERNATIVE = NEBS) INH PRN (07:50)
[2019-10-11] MEDS: Levothyroxine TAB* 75 MCG TAB PO SCH (07:50)
[2019-10-11] MEDS: Metoprolol Tartrate TAB* 25 MG PO SCH ×2 (07:50→21:35)
[2019-10-11] MEDS: Nystatin TOP POWDER* 15 GM BTL TOPICAL SCH ×2 (07:50→21:36)
[2019-10-11] MEDS: Albuterol HFA INHALER* 8 gm MDI INH PRN (07:54)
[2019-10-11 09:02] LABS: BUN/Creatinine Ratio 41.7 (8-20); Calcium 8.2 mg/dL (8.6-10.3); EGFR African American 122.2 (>60); Phosphorus 2.2 mg/dL (2.5-5.0); Potassium 3.7 mmol/L (3.5-5.0)
[2019-10-11] MEDS: cefTRIAXone(*) 2 GM in NS 0.9% 50 ML* 50 ML IVPB SCH (09:12)
[2019-10-11 10:00] LABS: TSH (Thyroid Stimulating Horm) 5.93 mcIU/mL (0.34-5.60)
[2019-10-11] MEDS: oxyCODONE/Acetamin 5/325 MG* TAB PO PRN ×2 (10:41→18:46)
[2019-10-11] MEDS: NS 0.9% 1000 ML** 1,000 ML IV SCH (12:25)
[2019-10-11] MEDS ORDERED: Magnesium Hydroxide LIQ* 30 ML UDC PO PRN (15:36)
--- NOTE | 2019-10-11 15:52 | PN ---
Subjective Date of Service: 10/11/19 Interval History: Pt is feeling poorly today. She states that her breathing is not as good as it was yesterday. She notes that she is very edematous compared to baseline. She has not had a BM since before admission. Objective Active Medications: Albuterol (Ventolin Hfa Inhaler*) 2 puff INH Q6H PRN PRN Reason: SOB/WHEEZING Last Admin: 10/10/19 11:08 Dose: 2 puff Clonazepam (Klonopin Tab(*)) 1 mg PO BEDTIME PRN PRN Reason: ANXIETY Last Admin: 10/11/19 01:03 Dose: 1 mg Dofetilide (Tikosyn Cap*) 250 mcg PO Q12H [facility] Last Admin: 10/11/19 13:20 Dose: 250 mcg Famotidine (Pepcid Tab*) 20 mg PO BID [facility] Last Admin: 10/11/19 07:50 Dose: 20 mg Guaifenesin/Dextromethorphan (Robitussin Dm 100 Mg/10 Mg In 5 Ml) 10 ml PO Q4H PRN PRN Reason: COUGH Last Admin: 10/09/19 13:16 Dose: 10 ml Ceftriaxone Sodium 2 gm/ (Sodium Chloride) 50 mls @ 100 mls/hr IVPB Q24H [facility] Last Admin: 10/11/19 09:12 Dose: 100 mls/hr Ipratropium [place] (Atrovent Hfa Inhaler(Nf)) 2 puff INH Q6H PRN PRN Reason: SOB/WHEEZING Last Admin: 10/11/19 07:50 Dose: 2 puff Levothyroxine Sodium (Synthroid Tab*) 75 mcg PO DAILY [facility] Last Admin: 10/11/19 07:50 Dose: 75 mcg Metoprolol Tartrate (Lopressor Tab*) 25 mg PO BID [facility] Last Admin: 10/11/19 07:50 Dose: 25 mg Nystatin (Nystatin Top Powder*) 1 applic TOPICAL BID [facility] Last Admin: 10/11/19 07:50 Dose: 1 applic Oxycodone/Acetaminophen (Percocet 5/325 Tab*) 1 tab PO Q4H PRN PRN Reason: PAIN - MODERATE Last Admin: 10/11/19 10:41 Dose: 1 tab Throat Lozenges (Chloraseptic Soila*) 1 soila PO Q2H PRN PRN Reason: THROAT DISCOMFORT Torsemide (Demadex*) 10 mg PO DAILY [facility] Vital Signs - 8 hr 10/11/19 10/11/19 10/11/19 07:52 10:41 12:00 Temperature 97.0 F 97.5 F Pulse Rate 87 78 Respiratory 20 18 20 Rate Blood Pressure 116/69 108/60 (mmHg) O2 Sat by Pulse 95 99 Oximetry 10/11/19 10/11/19 10/11/19 12:54 13:20 15:20 Temperature 98.0 F Pulse Rate 69 Respiratory 18 20 20 Rate Blood Pressure 105/59 (mmHg) O2 Sat by Pulse 98 Oximetry Oxygen Devices in Use Now: Nasal Cannula Appearance: Middle aged chronically ill appearing female sitting up in chair, NAD Eyes: No Scleral Icterus Ears/Nose/Mouth/Throat: Mucous Membranes Moist Respiratory: Symmetrical Chest Expansion and Respiratory Effort, - - diffuse crackles R>L Cardiovascular: NL Sounds; No Murmurs; No JVD, RRR, - - diffuse edema in all limbs Abdominal: NL Sounds; No Tenderness; No Distention - moderately distended Extremities: - - cyanotic fingers on R hand Skin: No Rash or Ulcers Neurological: Alert and Oriented x 3 Result Diagrams: 10/08/19 10:00 10/11/19 08:30 Microbiology and Other Data: Microbiology 10/09/19 08:42 Aerobic Blood Culture - Preliminary Blood Venous No Growth Day 2 Anaerobic Blood Culture - Preliminary No Growth Day 2 10/08/19 10:00 Aerobic Blood Culture - Final Blood Venous Strep Agalactiae - (Group B) Anaerobic Blood Culture - Final Strep Agalactiae - (Group B) 10/08/19 11:50 Urine Culture - Final Urine Escherichia Coli Assess/Plan/Problems-Billing Ms Traylor is a 64 yo F with a h/o COPD, hypothyroidism, afib and aortic stenosis who presented to the ER with c/o SOB and was admitted to the ER for treatment of hyponatremia and pneumonia. - Patient Problems (1) RLL pneumonia Current Visit: Yes Status: Acute Code(s): J18.9 - PNEUMONIA, UNSPECIFIED ORGANISM SNOMED Code(s): 721887872 Comment: Pt with possible RLL pneumonia. She continues on ceftriaxone. Monitor respiratory status. (2) Hyponatremia Current Visit: Yes Status: Acute Code(s): E87.1 - HYPO-OSMOLALITY AND HYPONATREMIA SNOMED Code(s): 48020271 Comment: Likely secondary to SIADH. Na level is improving. Monitor off IVF and on torsemide. (3) Bacteremia due to group B Streptococcus Current Visit: Yes Status: Acute Code(s): R78.81 - BACTEREMIA; B95.1 - STREPTOCOCCUS, GROUP B, [facility] SN[facility] Code(s): 227539035199 Comment: Pt with 2 of 2 bottles positive for group B strep. Will discuss work up and treament plan with ID tomorrow. For now continue ceftriaxone. Likely needs echo but may need SUSSY instead of TTE so will discuss with ID prior to ordering. (4) CHF (congestive heart failure) Current Visit: Yes Status: Acute Code(s): I50.9 - HEART FAILURE, UNSPECIFIED SNOMED Code(s): 30415328 Comment: I suspect at this time the patient has acute on chronic diastolic CHF. She has been receiving IV fluids and is now is appearing fluid overloaded with peripheral edema and crackles on lung exam. Will resume home dose of torsemide. Will need to watch Na level closely. (5) E. coli UTI Current Visit: Yes Status: Acute Code(s): N39.0 - URINARY TRACT INFECTION, SITE NOT SPECIFIED; B96.20 - UNSP ESCHERICHIA COLI THE CAUSE OF DISEASES CLASSD [facility] SNOMED Code(s): 713111093 Comment: Pt with Ecoli UTI. On ceftriaxone. Treat x7 days. (6) Atrial fibrillation Current Visit: Yes Status: Acute Code(s): I48.91 - UNSPECIFIED ATRIAL FIBRILLATION SNOMED Code(s): 44915480 Comment: Continue tikosyn and resume xarelto. She is in NSR. (7) COPD (chronic obstructive pulmonary disease) Current Visit: Yes Status: Acute Code(s): J44.9 - CHRONIC OBSTRUCTIVE PULMONARY DISEASE, UNSPECIFIED SNOMED Code(s): 67472425 Comment: No evidence of exacerbation at this time. Conitnue prn albuterol and atrovent. (8) Hypothyroid Current Visit: Yes Status: Acute Code(s): E03.9 - HYPOTHYROIDISM, UNSPECIFIED SNOMED Code(s): 96361292 Comment: TSH is mildly elevated. Will add on Free T4. Will continue usual dose of synthroid for now. (9) DVT prophylaxis Current Visit: Yes Status: Acute Code(s): XHI4657 - SNOMED Code(s): 232640320 Comment: Resume xarelto (10) DNR (do not resuscitate) Current Visit: Yes Status: Acute
[2019-10-11] MEDS: Torsemide TAB 10 MG PO SCH (18:20)
[2019-10-12] MEDS: Dofetilide CAP* 250 MCG PO SCH ×2 (02:02→13:59)
[2019-10-12] MEDS: Ipratropium HFA INHALER(NF) (ALTERNATIVE = NEBS) INH PRN ×2 (07:56→22:30)
[2019-10-12] MEDS: Metoprolol Tartrate TAB* 25 MG PO SCH ×2 (08:23→21:38)
[2019-10-12] MEDS: Famotidine TAB* 20 MG PO SCH ×2 (08:23→21:31)
[2019-10-12] MEDS: Torsemide TAB 10 MG PO SCH (08:24)
[2019-10-12] MEDS: Levothyroxine TAB* 75 MCG TAB PO SCH (08:24)
[2019-10-12] MEDS: Rivaroxaban TAB(*) 20 MG TAB PO SCH (08:24)
[2019-10-12] MEDS: Polyethylene Glycol 3350* 17 GM PACKET PO SCH (08:29)
[2019-10-12] MEDS ORDERED: cefTRIAXone(*) 2 GM in NS 0.9% 100 ML* 100 ML IVPB SCH (08:49)
[2019-10-12] MEDS: oxyCODONE/Acetamin 5/325 MG* TAB PO PRN ×3 (09:12→18:17)
[2019-10-12] MEDS: Nystatin TOP POWDER* 15 GM BTL TOPICAL SCH ×2 (09:12→21:34)
[2019-10-12] MEDS: cefTRIAXone(*) 2 GM in NS 0.9% 100 ML* 100 ML IVPB SCH (09:12)
[2019-10-12] MEDS: cefTRIAXone(*) 2 GM in NS 0.9% 50 ML* 50 ML IVPB SCH (09:23)
[2019-10-12] MEDS ORDERED: Perflutren Lipid Microsphere* 3 ML VIAL ONE (12:40)
[2019-10-12 13:19] LABS: Hematocrit 40 % (35-47); Hemoglobin 13.1 g/dL (12.0-16.0); Mean Corpuscular HGB Conc 33 g/dL (31-36); Mean Corpuscular Hemoglobin 29 pg (27-31); Mean Corpuscular Volume 88 fL (80-97); Platelet Count 224 10^3/uL (150-450); Red Blood Count 4.51 10^6 /uL (3.70-4.87); Red Cell Distribution Width 16 % (10-15); White Blood Count 9.9 10^3/uL (3.5-10.8)
[2019-10-12 13:39] LABS: BUN/Creatinine Ratio 34.4 (8-20); Calcium 8.1 mg/dL (8.6-10.3); EGFR African American 113.4 (>60); EGFR Non-African American 93.7 (>60); Potassium 3.3 mmol/L (3.5-5.0)
[2019-10-12] MEDS ORDERED: Potassium Chlor TAB* 20 MEQ TAB.ER PO ONE (13:44)
[2019-10-12 14:14] LABS: Magnesium 1.7 mg/dL (1.9-2.7)
--- NOTE | 2019-10-12 14:24 | PN ---
Subjective Date of Service: 10/12/19 Interval History: Pt is feeling much better today than yesterday. She states her breathing is much more comfortable. She is now on RA. She notes that the swelling in her arms /legs is quite a bit better today. Objective Active Medications: Albuterol (Ventolin Hfa Inhaler*) 2 puff INH Q6H PRN PRN Reason: SOB/WHEEZING Last Admin: 10/10/19 11:08 Dose: 2 puff Clonazepam (Klonopin Tab(*)) 1 mg PO BEDTIME PRN PRN Reason: ANXIETY Last Admin: 10/11/19 23:55 Dose: 1 mg Dofetilide (Tikosyn Cap*) 250 mcg PO Q12H [facility] Last Admin: 10/12/19 02:02 Dose: 250 mcg Famotidine (Pepcid Tab*) 20 mg PO BID [facility] Last Admin: 10/12/19 08:23 Dose: 20 mg Guaifenesin/Dextromethorphan (Robitussin Dm 100 Mg/10 Mg In 5 Ml) 10 ml PO Q4H PRN PRN Reason: COUGH Last Admin: 10/09/19 13:16 Dose: 10 ml Ceftriaxone Sodium 2 gm/ (Sodium Chloride) 100 mls @ 200 mls/hr IVPB DAILY [facility] Last Admin: 10/12/19 09:12 Dose: 200 mls/hr Ipratropium [place] (Atrovent Hfa Inhaler(Nf)) 2 puff INH Q6H PRN PRN Reason: SOB/WHEEZING Last Admin: 10/12/19 07:56 Dose: 2 puff Levothyroxine Sodium (Synthroid Tab*) 75 mcg PO DAILY [facility] Last Admin: 10/12/19 08:24 Dose: 75 mcg Magnesium Hydroxide (Milk Of Magnesia Liq*) 30 ml PO Q6H PRN PRN Reason: CONSTIPATION Metoprolol Tartrate (Lopressor Tab*) 25 mg PO BID [facility] Last Admin: 10/12/19 08:23 Dose: 25 mg Nystatin (Nystatin Top Powder*) 1 applic TOPICAL BID [facility] Last Admin: 10/12/19 09:12 Dose: 1 applic Oxycodone/Acetaminophen (Percocet 5/325 Tab*) 1 tab PO Q4H PRN PRN Reason: PAIN - MODERATE Last Admin: 04/02/20 09:12 Dose: 1 tab Polyethylene Glycol/Electrolytes (Miralax (17 Gm Dose Nii)) 17 gm PO DAILY [facility] Last Admin: 10/12/19 08:29 Dose: Not Given Potassium Chloride (Klor Con Er Tab*) 40 meq PO ONCE ONE Stop: 10/12/19 13:45 Rivaroxaban (Xarelto(*)) 20 mg PO DAILY WITH MEAL [facility] Last Admin: 10/12/19 08:24 Dose: 20 mg Throat Lozenges (Chloraseptic Soila*) 1 soila PO Q2H PRN PRN Reason: THROAT DISCOMFORT Torsemide (Torsemide) 10 mg PO DAILY [facility] Last Admin: 10/12/19 08:24 Dose: 10 mg Vital Signs - 8 hr 10/12/19 10/12/19 10/12/19 07:35 08:25 09:12 Temperature 97.1 F Pulse Rate 69 Respiratory 20 20 20 Rate Blood Pressure 107/53 (mmHg) O2 Sat by Pulse 97 Oximetry 10/12/19 13:30 Temperature 97.3 F Pulse Rate 72 Respiratory 18 Rate Blood Pressure 97/53 (mmHg) O2 Sat by Pulse 93 Oximetry Oxygen Devices in Use Now: None Appearance: Middle aged female who appears older than her stated age, sitting up in a chair, NAD Eyes: No Scleral Icterus Ears/Nose/Mouth/Throat: Mucous Membranes Moist Respiratory: Symmetrical Chest Expansion and Respiratory Effort, Clear to Auscultation - decreased breath sounds at the bases Cardiovascular: - - RRR III/ systolic murmur, UE>LE edema L>R Abdominal: NL Sounds; No Tenderness; No Distention Extremities: - - cyanotic fingers on the R Skin: No Rash or Ulcers Neurological: Alert and Oriented x 3 Result Diagrams: 10/12/19 13:00 10/13/19 10:00 Microbiology and Other Data: Microbiology 10/09/19 08:42 Aerobic Blood Culture - Preliminary Blood Venous No Growth Day 2 Anaerobic Blood Culture - Preliminary No Growth Day 2 10/08/19 10:00 Aerobic Blood Culture - Final Blood Venous Strep Agalactiae - (Group B) Anaerobic Blood Culture - Final Strep Agalactiae - (Group B) 10/08/19 11:50 Urine Culture - Final Urine Escherichia Coli Assess/Plan/Problems-Billing Ms Traylor is a 64 yo F with a h/o COPD, hypothyroidism, afib and aortic stenosis who presented to the ER with c/o SOB and was admitted to the ER for treatment of hyponatremia and pneumonia. - Patient Problems (1) RLL pneumonia Current Visit: Yes Status: Acute Code(s): J18.9 - PNEUMONIA, UNSPECIFIED ORGANISM SNOMED Code(s): 684955377 Comment: Pt with possible RLL pneumonia though not completely clear. She continues on ceftriaxone. Respiratory status is improving. (2) Hyponatremia Current Visit: Yes Status: Acute Code(s): E87.1 - HYPO-OSMOLALITY AND HYPONATREMIA SNOMED Code(s): 64554175 Comment: Likely secondary to SIADH. Na level is stable despite resuming diuresis. (3) Bacteremia due to group B Streptococcus Current Visit: Yes Status: Acute Code(s): R78.81 - BACTEREMIA; B95.1 - STREPTOCOCCUS, GROUP B, CAUSING DISEASES [facility] SNOMED Code(s): 486594750542 Comment: Pt with 2 of 2 bottles positive for group B strep. TTE pending. Continue ceftriaxone. Await ID consult recommendations. (4) CHF (congestive heart failure) Current Visit: Yes Status: Acute Code(s): I50.9 - HEART FAILURE, UNSPECIFIED SNOMED Code(s): 72090856 Comment: I suspect at this time the patient has acute on chronic diastolic CHF. Continue torsemide. She seems to be having a decent response. (5) E. coli UTI Current Visit: Yes Status: Acute Code(s): N39.0 - URINARY TRACT INFECTION, SITE NOT SPECIFIED; B96.20 - UNSP ESCHERICHIA COLI THE CAUSE OF DISEASES CL[facility]SD [facility] SNOMED Code(s): 891975286 Comment: Pt with Ecoli UTI. On ceftriaxone. (6) Atrial fibrillation Current Visit: Yes Status: Acute Code(s): I48.91 - UNSPECIFIED ATRIAL FIBRILLATION SNOMED Code(s): 73000925 Comment: Continue tikosyn, replete K and continue xarelto. She is in NSR. (7) COPD (chronic obstructive pulmonary disease) Current Visit: Yes Status: Acute Code(s): J44.9 - CHRONIC OBSTRUCTIVE PULMONARY DISEASE, UNSPECIFIED SNOMED Code(s): 19328615 Comment: No evidence of exacerbation at this time. Conitnue prn albuterol and atrovent. (8) Hypothyroid Current Visit: Yes Status: Acute Code(s): E03.9 - HYPOTHYROIDISM, UNSPECIFIED SNOMED Code(s): 29945550 Comment: TSH is mildly elevated. Will continue usual dose of synthroid for now. (9) DVT prophylaxis Current Visit: Yes Status: Acute Code(s): CMW7227 - SNOMED Code(s): 299284893 Comment: tania (10) DNR (do not resuscitate) Current Visit: Yes Status: Acute
--- NOTE | 2019-10-12 14:57 | ECHO ---
*[facility]* [place] [address] Fax #: [phone] Transthoracic Echocardiogram Patient: Kallie Traylor : 1955 Study Date: 10/12/2019 Age: 64 Gender: F HR: 70 bpm Height: 66 in /167.6 cm BSA: 1.93 m^2 Weight: 182.6 lb /83 kg BMI: 29.5 kg/m^2 *Can Capper: Sonja East RDCS RN *Referring Physician: * Isi Mattson *Reading Physician: * Pablito Felix MD Indications: Bacteremia. History: Pneumonia. Atrial fibrillation. Pacemaker. Left breast cancer with mastectomy. Hypothyroidism. Aortic stenosis. Chronic obstructive pulmonary disease. Conclusions Summary: - Left ventricle: Systolic function is normal. The estimated ejection fraction is 60-65%. - Right ventricle: Wall thickness is mildly increased. Systolic function is low normal. - Mitral valve: The findings are consistent with mild stenosis. There is mild regurgitation. - Aortic valve: The findings are consistent with severe stenosis. Stenosis severity has increased in comparison with the study of December 2018 which may have been underestimated last time. The peak systolic velocity is 2.36 m/sec. The mean systolic gradient is 11.0 mm Hg. The peak systolic gradient is 22.0 mm Hg. The LVOT to aortic valve VTI ratio is 0.32. The valve area by the velocity-time integral method is 0.81 cm^2. The ratio of LVOT to aortic valve peak velocity is 0.31. The valve area by the peak velocity method is 0.79 cm^2. - Pulmonary arteries: Systolic pressure is moderately increased, estimated to be 52 mm Hg. Pulmonary artery pressure has increased from the study of December 2018. Recommendations: No obvious vegetations. Consider Transesophageal echocardiogram if there is a high suspicion for endocarditia. Study data: Transthoracic echocardiogram. Procedure: Transthoracic echocardiography was performed. Image quality was fair. The study was technically limited due to chest wall deformity and COPD. Intravenous Definity 3 ml was administered to enhance imaging. Complete 2D, spectral Doppler, and color flow Doppler. Location: Bedside. Patient status: Inpatient. Patient room number: 445-01. The previous study was not available, so comparison is made to the report of December 2018. Rhythm: Paced rhythm. Findings Left ventricle: The cavity size is normal. Wall thickness is normal. Systolic function is normal. The estimated ejection fraction is 60-65%. Wall motion is normal; there are no regional wall motion abnormalities. Left ventricular diastolic function parameters are indeterminate. Right ventricle: Not well visualized. Wall thickness is mildly increased. Pacer wire noted in the right ventricle. Systolic function is low normal. Ventricular septum: There is abnormal interventricular septal wall motion consistent with an RV pacemaker. Left atrium: Not well visualized. The atrium is normal in size. Right atrium: Not well visualized. Pacer wire noted in right atrium. Mitral valve: The Mitral valve annulus appears mild to moderately calcified. The leaflets are mildly thickened. Mitral valve appearance has not changed in comparison with the study of December 2018. The findings are consistent with mild stenosis. There is mild regurgitation. Aortic valve: The leaflets are moderately thickened with decreased excursion. The findings are consistent with severe stenosis. Stenosis severity has increased in comparison with the study of December 2018 which may have been underestimated last time. There is trace to mild regurgitation. Tricuspid valve: The leaflets are normal thickness. There is moderate-severe regurgitation. Pulmonic valve: The valve is structurally normal. There is trace regurgitation. Aorta: Aortic root: The aortic root is not dilated. Ascending aorta: The ascending aorta is not dilated. Aortic arch: The aortic arch is not visualized. Pericardium: There is no pericardial effusion. Pulmonary arteries: The main pulmonary artery is normal-sized. Systolic pressure is moderately increased, estimated to be 52 mm Hg. Pulmonary artery pressure has increased from the study of December 2018. Systemic veins: Inferior vena cava: Not well visualized. Measurements Left ventricle Value Ref Aortic valve Value Ref BOY, LAX 3.9 cm 3.8 - 5.2 Romelia diam, ED 1.8 cm ---- ESD, LAX 2.9 cm 2.2 - 3.5 Romelia diam/bsa, ED 0.9 cm/m^2 ---- FS, LAX (L) 25 % 27 - 45 Peak v, S 2.36 m/sec ---- PW, ED 0.9 cm 0.6 - 0.9 VTI, S 42.5 cm ---- IVS/PW, ED 0.97 Mean grad, S 11.0 mm Hg ---- E', med romelia, TDI (L) 6.3 cm/sec >=7.0 Peak grad, S 22.0 mm Hg -- -- E/e', med romelia, 16 LVOT/AV, VTI ratio 0.32 ---- TDI MARYLOU, VTI 0.81 cm^2 ---- MARYLOU, Vmax 0.79 cm^2 ---- LVOT Value Ref Diam, S 1.80 cm Mitral valve Value Ref Area 2.5 cm^2 Peak E 1.01 m/sec ---- Peak mehnaz, S 0.74 m/sec Peak A 0.64 m/sec ---- VTI, S 13.6 cm Decel time 299 ms ---- Mean grad, S 1 mm Hg Peak grad, D 4.1 mm Hg ---- SV 35 ml Peak E/A ratio 1.6 ---- SV/bsa 18 ml/m^2 Pulmonic valve Value Ref Ventricular septum Value Ref Peak v, S 0.64 m/sec ---- IVS, ED 0.9 cm 0.6 - 0.9 Peak grad, S 2.0 mm Hg ---- Right ventricle Value Ref Tricuspid valve Value Ref AW thickness, ED (H) 0.6 cm 0.1 - 0.5 Peak RV-RA grad, S 44 mm Hg ---- BOY, LAX 2.5 cm Max TR mehnaz 3.3 m/sec ---- Pressure, S 52 mm Hg Aortic root Value Ref Left atrium Value Ref Root diam 3.2 cm <4.1 AP dim, ES (L) 2.50 cm 2.70 - 3.80 Ascending aorta Value Ref ML dim, A4C 3.7 cm AAo AP diam, S 2.8 cm ---- SI dim, A4C 3.7 cm Pulmonary artery Value Ref Right atrium Value Ref Pressure, S 52.0 mm Hg ---- Estimated RAP 8 mm Hg Legend: (L) and (H) kirsten values outside specified reference range. Prepared and electronically signed by Pablito Felix MD 10/12/2019 14:56
[2019-10-12] MEDS ORDERED: Dofetilide CAP* 250 MCG PO ONE (17:00)
[2019-10-12] MEDS ORDERED: Magnesium Sulfate 2 GM IV* 2 GM/50 ML BAG IVPB ONE (17:15)
--- NOTE | 2019-10-12 19:23 | CONS ---
CONSULTATION REPORT: DATE OF CONSULT: 10/12/19 PRIMARY CARE PROVIDER: Dr. Philip Chirinos. PROVIDER REQUESTING CONSULTATION: Dr. Isi Mattson. CONSULTING SERVICE: Infectious Diseases. PROVIDER: Kelsy Traylor NP. ATTENDING PHYSICIAN: Dr. Aurelio Banegas.* (DICTATED BY KELSY TRAYLOR NP) REASON FOR CONSULTATION: Group B strep bacteremia. IMPRESSION: 1. Group B strep bacteremia. The patient was noted to have 2 out of 2 bottles positive on admission. Repeat blood cultures 1 day later with no growth in both bottles. She reports presence of a pacemaker and denies any other prosthetic materials. She has been afebrile during her admission. Initially presented with leukocytosis. This has resolved while on ceftriaxone. She has no evidence of a cellulitis. Denies any abdominal pain, urinary symptoms. She is admitted with presumed pneumonia and does report shortness of breath. Chest x-ray with what maybe a right lower lobe pneumonia. She has a transthoracic echocardiogram pending for today. 2. Right lower lobe pneumonia. Chest x-ray completed on admission with chronic pleural changes in the right lung base and left lung field clear. Suspect she may have a right lower lobe pneumonia. Influenza A and B negative. COVID-19 negative. Initial leukocytosis has resolved. 3. Urinary tract infection. Denies any urinary symptoms, this could represent asymptomatic bacteriuria. Cultures with Escherichia coli 10,000 to 25,000. She is on ceftriaxone that will cover this. 4. History of left breast cancer, status post left mastectomy. 5. Chronic obstructive pulmonary disease. 6. Chronic left upper extremity lymphedema. 7. CLINDAMYCIN, PENICILLIN, and LEVAQUIN allergies. RECOMMENDATIONS/PLAN: Recommend continuing ceftriaxone at this time. She had a transthoracic echocardiogram, and results are pending at this time. In the setting of a pacemaker, she may need to have a transesophageal echocardiogram, but we will wait for the transthoracic echocardiogram findings prior to this. Repeat a CRP the next time she has labs checked. HISTORY OF PRESENT ILLNESS: Ms. Traylor is a 64-year-old female with past medical history significant for COPD; hypothyroidism; left breast cancer, status post left breast mastectomy and sentinel lymph node biopsy; aortic stenosis; atrial fibrillation; right brachial plexopathy; chronic lymphedema of the left upper extremity, who states that she had been in her normal state of health until she presented to the emergency room 4 days ago with complaints of 3 to 4 days of increasing shortness of breath that began after she stopped going to physical therapy due to concern for COVID-19. She denied having any cough, sputum production, fever, chills, chest pain. She was noted to have a fever of 101 per EMS, was brought to the emergency room. 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 She had blood cultures drawn and had labs showing a white blood cell count of 20, 700. Additionally, she had a significantly elevated CRP of 200.17. She had influenza A and B negative. She was referred to the slide forming machine tender service for admission. While in the hospital, her initial blood cultures in the emergency room returned 2 out of 2 positive for group B strep. She had repeat blood cultures the next morning with no growth to date. She has been afebrile and leukocytosis has resolved. COVID-19 test returned negative. She is being treated with ceftriaxone for possible right lower lobe pneumonia. She was also felt to have an acute on chronic diastolic CHF exacerbation. She reports a fungal infection under her breast. She reports having a poor appetite prior to her presentation that lasted from last Wednesday until the day of her admission. Additionally, she has bilateral upper extremity edema with the left greater than the right. She has known chronic lymphedema of the left upper extremity. Right hand with fingers with cyanosis and edema, she states this is secondary to Raynaud's. She currently denies any fevers. She states she has had chills for 3 days. Denies cough. Continues to have shortness of breath at rest. She is not really sure about the shortness of breath with exertion as she has not been moving around much. She denies any cough. Does report postnasal drip, which is not uncommon for her and does say that she has an occasional cough when lying down due to the postnasal drip. Reports nausea and poor appetite. Denies vomiting, diarrhea, constipation, abdominal pain, urinary symptoms such as urgency, frequency, or dysuria. She denies any recent travel. PAST MEDICAL HISTORY: 1. COPD. 2. Hypothyroidism. 3. Left breast cancer. 4. Aortic stenosis. 5. Atrial fibrillation. 6. Right brachial plexopathy. 7. Chronic left upper extremity lymphedema. 8. Diastolic congestive heart failure. 9. 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 10. Coronary artery disease. 11. Hodgkin lymphoma with recurrence in 1987 and 1990. 12. Pulmonary hypertension. PAST SURGICAL HISTORY: 1. Status post pacemaker placement in May 2018. 2. Status post staging laparotomy with splenectomy and a lymph node dissection in the . 3. Status post left axillary lymphadenectomy. 4. Status post VATS procedure in 2011. 5. Status post cardiac catheterization in 2010. 6. Status post dental extracts. 7. Status post placement of chemotherapy port and status post subsequent removal. 8. Status post left breast mastectomy. 9. Status post D and C, hysteroscopy, and polypectomy. MEDICATIONS: Home medications: 1. Levothyroxine 75 mcg by mouth daily. 2. Atrovent HFA inhaler 17 mcg inhalation 4 times daily as needed for shortness of breath. 3. Tikosyn 250 mcg by mouth twice daily. 4. Ndvmdny-zrcebfqhz-vusnjod D3 two tablets by mouth twice daily. 5. Vitamin C 1000 mg by mouth daily. 6. Albuterol HFA inhaler 2 puffs inhalation every 6 hours as needed for shortness of breath or wheeze. 7. Zantac 150 mg by mouth daily. 8. Fish oil 500 mg by mouth daily. 9. Metoprolol tartrate 25 mg by mouth twice daily. 10. Magnesium oxide 400 mg by mouth daily. 11. Percocet 5/325 one tablet by mouth every 6 hours as needed for pain. 12. Mucinex 600 mg by mouth twice daily. 13. Torsemide 10 mg by mouth daily. 14. Xarelto 20 mg by mouth every evening. Hospital medications: 1. Albuterol HFA inhaler 2 puffs inhalation every 6 hours as needed for shortness of breath or wheeze. 2. Ceftriaxone 2 g IV daily. 3. Klonopin 1 mg by mouth at bedtime as needed for anxiety. 4. Tikosyn 250 mcg by mouth every 12 hours. 5. Famotidine 20 mg by mouth twice daily. 6. Robitussin DM 10 mL by mouth every 4 hours as needed for cough. 7. Atrovent HFA inhaler 2 puffs inhalation every 6 hours as needed for shortness of breath or wheeze. 8. Levothyroxine 75 mcg by mouth daily. 9. Milk of magnesia 30 mL by mouth every 6 hours as needed for constipation. 10. Metoprolol tartrate 25 mg by mouth twice daily. 11. Nystatin apply topical twice daily. 12. Percocet 5/325 one tablet by mouth every 4 hours as needed for pain. 13. MiraLAX 17 g by mouth daily. 14. Xarelto 20 mg by mouth daily with meals. 15. Chloraseptic lozenge 1 lozenge by mouth every 2 hours as needed for sore throat. 16. Torsemide 10 mg by mouth daily. ALLERGIES: 1. CLINDAMYCIN caused tachycardia. 2. PENICILLIN G caused anaphylactic shock. 3. SOTALOL. 4. ATENOLOL. 5. LEVOFLOXACIN caused itching. 6. CARDIZEM. 7. DRONEDARONE. FAMILY HISTORY: Denies family history of recurrent or resistant infections. Mother passed in her 80s. Father passed at age 56 from throat cancer. SOCIAL HISTORY: The patient is a former smoker, quitting approximately 12 years ago. Denies alcohol, tobacco, or recreational drug use. REVIEW OF SYSTEMS: I performed a 10-point review of systems. All the pertinent positives and negatives are mentioned in the history of present illness, remaining review of systems are negative. PHYSICAL EXAM: Vital Signs: Temperature 97.3, heart rate 72, respiratory rate 18, O2 sat 93% on room air, blood pressure 97/56. General Appearance: Alert, appears to be in no acute distress, sitting up in a chair and is chronically ill appearing. Head: Normocephalic, atraumatic. EENT: Extraocular movements are intact. No scleral icterus. No subconjunctival hemorrhage. Moist mucous membranes. Neck: Supple. No lymphadenopathy. Neurologic: Alert and oriented x3. Cardiovascular: Regular rate and rhythm. She has diffuse edema to the upper extremities, left greater than the right. Trace bilateral lower extremity edema. Respiratory: Lungs are clear to auscultation in the upper lobes with crackles in the bases with right greater than left. Abdomen: Bowel sounds present. Abdomen is soft, nontender, nondistended. Musculoskeletal: There is no clubbing noted. Psychological: Calm and cooperative. Skin: No rashes seen on the exposed skin. Her right hand and arm are noted to be edematous with the fingers on the right hand noted to be cyanotic. DIAGNOSTIC STUDIES/LAB DATA: Sodium 133, potassium 3.3, chloride 97, CO2 29, BUN 22, creatinine 0.64, glucose 137. White blood cell count 9.9, hemoglobin 13.1, hematocrit 40, platelet count 224. CRP on admission 200.17. COVID-19 test negative. Influenza A and B negative on admission. Please see impressions, recommendations outlined above. Recommendations have been discussed with Dr. Isi Mattson. Thank you for asking us to see Ms. Traylor in consultation. The case has been discussed with my attending Dr. Aurelio Banegas, who agrees with the plan of care. Reviewed by KELSY TRAYLOR, DANIELLE-Leah 10/14/19 1223 [id number]/[facility] #: [id number] MTDKd
[2019-10-12] MEDS: clonazePAM TAB(*) 1 MG PO PRN (23:36)
[2019-10-13] MEDS: Polyethylene Glycol 3350* 17 GM PACKET PO SCH (08:02)
[2019-10-13] MEDS: Levothyroxine TAB* 75 MCG TAB PO SCH (08:02)
[2019-10-13] MEDS: Torsemide TAB 10 MG PO SCH (08:02)
[2019-10-13] MEDS: Rivaroxaban TAB(*) 20 MG TAB PO SCH (08:02)
[2019-10-13] MEDS: Metoprolol Tartrate TAB* 25 MG PO SCH ×2 (08:02→20:03)
[2019-10-13] MEDS: Famotidine TAB* 20 MG PO SCH ×2 (08:02→20:03)
[2019-10-13] MEDS: Dofetilide CAP* 250 MCG PO SCH ×2 (08:05→20:02)
[2019-10-13] MEDS: Nystatin TOP POWDER* 15 GM BTL TOPICAL SCH ×2 (08:10→20:08)
[2019-10-13] MEDS: cefTRIAXone(*) 2 GM in NS 0.9% 100 ML* 100 ML IVPB SCH (08:21)
[2019-10-13 10:26] LABS: BUN/Creatinine Ratio 34.8 (8-20); Blood Urea Nitrogen 23 mg/dL (6-24); CO2 Carbon Dioxide 30 mmol/L (22-32); Calcium 8.4 mg/dL (8.6-10.3); Chloride 97 mmol/L (101-111); EGFR African American 109.4 (>60); EGFR Non-African American 90.5 (>60); Glucose 172 mg/dL (70-100); Sodium 134 mmol/L (135-145)
[2019-10-13 10:28] LABS: Anion Gap 7 mmol/L (2-11)
[2019-10-13] MEDS ORDERED: Potassium Chlor TAB* 20 MEQ TAB.ER PO ONE (10:38)
[2019-10-13] MEDS ORDERED: Ipratropium HFA INHALER(NF) (ALTERNATIVE = NEBS) INH SCH (11:00)
[2019-10-13 11:11] LABS: C Reactive Protein 78.13 mg/L (<8.01)
--- NOTE | 2019-10-13 11:40 | PN ---
Progress Note - Progress Note Date of Service: 10/13/19 SOAP: Subjective: CC: Group B strep bacteremia HPI: Ms. Traylor is a 64 yo female with PMH significant for COPD, hypothryroidism, left breast cancer s/p mastectomy, , A fib, right brachial plexopathy, chronic left UE lymphedema, D CHF, hyponatremia, hodgkin's lumphoma, and pulmonary HTN; who presented to the emergency room with complaints of SOB and was found to have bacteremia. Denies fever, chills, nausea, vomiting, or diarrhea. Objective: Vital Signs - 8 hr 10/13/19 06:58 Temperature 97.4 F Pulse Rate 71 Respiratory 26 Rate Blood Pressure 113/53 (mmHg) O2 Sat by Pulse 94 Oximetry Physical Exam: General: NAD, sitting up in a chair Neurological: Alert and Oriented HEENT: Moist MM, no thrush Cardiovascular: Heart rate regular; systolic murmur heard best at the left upper sternal border Respiratory: Lung sounds clear Abdominal: Bowel sounds present; ABD soft, non tender and slightly distended MSK: RODRIGUES, no tenderness with palpation of neck, back or spine Skin: No rash on exposed skin Laboratory Results - last 24 hr 10/12/19 10/12/19 10/13/19 13:00 13:00 10:00 WBC 9.9 RBC 4.51 Hgb 13.1 Hct 40 MCV 88 MCH 29 MCHC 33 RDW 16 H Plt Count 224 MPV 8.0 Sodium 133 L 134 L Potassium 3.3 L TNP Chloride 97 L 97 L Carbon Dioxide 29 30 Anion Gap 7 7 BUN 22 23 Creatinine 0.64 0.66 Est GFR ( Amer) 113.4 109.4 Est GFR (Non-Af Amer) 93.7 90.5 BUN/Creatinine Ratio 34.4 H 34.8 H Glucose 137 H 172 H Calcium 8.1 L 8.4 L Magnesium 1.7 L C-Reactive Protein 78.13 H Microbiology 10/09/19 08:42 Aerobic Blood Culture - Preliminary Blood Venous No Growth Day 4 Anaerobic Blood Culture - Preliminary No Growth Day 4 10/08/19 10:00 Aerobic Blood Culture - Final Blood Venous Strep Agalactiae - (Group B) Anaerobic Blood Culture - Final Strep Agalactiae - (Group B) 10/08/19 11:50 Urine Culture - Final Urine Escherichia Coli Assessment: 1. Bacteremia. Initial blood cultures with 2/2 bottles positive for group B strep and repeat cultures with no growth to date. Afebrile and no leukocytosis. CRP is trending down. Has a pacemaker. She had a TTE showing severe ( increased from previous) and no signs of vegetation. Denies back pain, no signs of cellulitis, no other prosthetic material. 2. Possible right lower lobe PNA. Chest xray on admission with chronic pleural changes in the right lung base and left lung clear. ? this is PNA vs fluid overload in the setting of acute on chronic diastolic CHF exacerbation. Denies cough except when laying down in the setting of postnasal drip. Leukocytosis has resolved, afebrile, no hypoxia. CRP elevated and trending down. 3. Asymptomatic bacteruria. Urine culture with E coli 10-25K. She denies urinary symptoms (Ceftriaxone that she is receiving will cover this) 4. History of left breast cancer. S/P left mastectomy with chronic left UE lymphedema. 5. COPD. No sign of COPD exacerbation at this time. 6. Clindamycin, PCN, and Levaquin allergies. Plan: Continue Ceftriaxone. Pt should have a SUSSY, she is hesitant about it and would like to think about it. Discussed with Dr. Surendra Mattson. 25 minutes floor time: > 50% spent with the patient discussing recommendations for SUSSY.
[2019-10-13] MEDS: Albuterol HFA INHALER* 8 gm MDI INH PRN (12:10)
--- NOTE | 2019-10-13 13:40 | PN ---
Subjective Date of Service: 10/13/19 Interval History: Pt is feeling ok today. She is frustrated when I tell her she needs a SUSSY. She states her breathing is ok. She does not notice any improvement in her UE edema today. Objective Active Medications: Albuterol (Ventolin Hfa Inhaler*) 2 puff INH Q6H PRN PRN Reason: SOB/WHEEZING Last Admin: 10/13/19 12:10 Dose: 2 puff Clonazepam (Klonopin Tab(*)) 1 mg PO BEDTIME PRN PRN Reason: ANXIETY Last Admin: 10/12/19 23:36 Dose: 1 mg Dofetilide (Tikosyn Cap*) 250 mcg PO Q12H [facility] Last Admin: 10/13/19 08:05 Dose: 250 mcg Famotidine (Pepcid Tab*) 20 mg PO BID [facility] Last Admin: 10/13/19 08:02 Dose: 20 mg Guaifenesin/Dextromethorphan (Robitussin Dm 100 Mg/10 Mg In 5 Ml) 10 ml PO Q4H PRN PRN Reason: COUGH Last Admin: 10/09/19 13:16 Dose: 10 ml Ceftriaxone Sodium 2 gm/ (Sodium Chloride) 100 mls @ 200 mls/hr IVPB DAILY [facility] Last Admin: 10/13/19 08:21 Dose: 200 mls/hr Ipratropium [place] (Atrovent Hfa Inhaler(Nf)) 2 puff INH Q6H PRN PRN Reason: SOB/WHEEZING Levothyroxine Sodium (Synthroid Tab*) 75 mcg PO DAILY [facility] Last Admin: 10/13/19 08:02 Dose: 75 mcg Magnesium Hydroxide (Milk Of Magnesia Liq*) 30 ml PO Q6H PRN PRN Reason: CONSTIPATION Last Admin: 10/12/19 22:00 Dose: 30 ml Metoprolol Tartrate (Lopressor Tab*) 25 mg PO BID [facility] Last Admin: 10/13/19 08:02 Dose: 25 mg Nystatin (Nystatin Top Powder*) 1 applic TOPICAL BID [facility] Last Admin: 10/13/19 08:10 Dose: 1 applic Oxycodone/Acetaminophen (Percocet 5/325 Tab*) 1 tab PO Q4H PRN PRN Reason: PAIN - MODERATE Last Admin: 10/12/19 18:17 Dose: 1 tab Polyethylene Glycol/Electrolytes (Miralax (17 Gm Dose Nii)) 17 gm PO DAILY [facility] Last Admin: 10/13/19 08:02 Dose: 17 gm Rivaroxaban (Xarelto(*)) 20 mg PO DAILY WITH MEAL [facility] Last Admin: 10/13/19 08:02 Dose: 20 mg Throat Lozenges (Chloraseptic Soila*) 1 soila PO Q2H PRN PRN Reason: THROAT DISCOMFORT Torsemide (Torsemide) 20 mg PO MOWEFR [facility] Torsemide (Torsemide) 10 mg PO [place]SA [facility] Vital Signs - 8 hr 10/13/19 10/13/19 06:58 09:00 Temperature 97.4 F Pulse Rate 71 67 Respiratory 26 Rate Blood Pressure 113/53 (mmHg) O2 Sat by Pulse 94 Oximetry Oxygen Devices in Use Now: None Appearance: Middle aged female who appears older than her stated age sitting up in a chair, NAD Eyes: No Scleral Icterus Ears/Nose/Mouth/Throat: Mucous Membranes Moist Respiratory: Symmetrical Chest Expansion and Respiratory Effort, Clear to Auscultation - diminshed at the bases Cardiovascular: NL Sounds; No Murmurs; No JVD, RRR, - - edema of legs trace to 1 +, L>R UE edema Abdominal: NL Sounds; No Tenderness; No Distention Extremities: - - R fingers are cyanotic Skin: No Rash or Ulcers Neurological: Alert and Oriented x 3 Result Diagrams: 10/12/19 13:00 10/13/19 10:00 Microbiology and Other Data: Microbiology 10/09/19 08:42 Aerobic Blood Culture - Preliminary Blood Venous No Growth Day 2 Anaerobic Blood Culture - Preliminary No Growth Day 2 10/08/19 10:00 Aerobic Blood Culture - Final Blood Venous Strep Agalactiae - (Group B) Anaerobic Blood Culture - Final Strep Agalactiae - (Group B) 10/08/19 11:50 Urine Culture - Final Urine Escherichia Coli Assess/Plan/Problems-Billing Ms Traylor is a 64 yo F with a h/o COPD, hypothyroidism, afib and aortic stenosis who presented to the ER with c/o SOB and was admitted to the ER for treatment of hyponatremia and pneumonia. - Patient Problems (1) RLL pneumonia Current Visit: Yes Status: Acute Code(s): J18.9 - PNEUMONIA, UNSPECIFIED ORGANISM SNOMED Code(s): 633122886 Comment: Pt with possible RLL pneumonia though not completely clear. She continues on ceftriaxone given group B strep bacteremia. Respiratory status is improving. (2) Hyponatremia Current Visit: Yes Status: Acute Code(s): E87.1 - HYPO-OSMOLALITY AND HYPONATREMIA SNOMED Code(s): 74560759 Comment: Likely secondary to SIADH. Na level is stable despite resuming diuresis. Continue to monitor. (3) Bacteremia due to group B Streptococcus Current Visit: Yes Status: Acute Code(s): R78.81 - BACTEREMIA; B95.1 - STREPTOCOCCUS, GROUP B, CAUSING DISEASES CL[facility]SD [facility] SNOMED Code(s): 962179336773 Comment: Pt with 2 of 2 bottles positive for group B strep. TTE does not show any evidence of endocarditis. Continue ceftriaxone. Will get SUSSY given pt has pacemaker and because the the source of the Group B strep is not clear. (4) CHF (congestive heart failure) Current Visit: Yes Status: Acute Code(s): I50.9 - HEART FAILURE, UNSPECIFIED SNOMED Code(s): 82371171 Comment: I suspect at this time the patient has acute on chronic diastolic CHF. Continue torsemide she typically takes 20mg MWF and 10mg all other days of the week. Continue to monitor edema of limbs, respiratory status. (5) E. coli UTI Current Visit: Yes Status: Acute Code(s): N39.0 - URINARY TRACT INFECTION, SITE NOT SPECIFIED; B96.20 - UNSP ESCHERICHIA COLI THE CAUSE OF DISEASES CLASSD [facility] SNOMED Code(s): 017462462 Comment: Pt with Ecoli UTI. On ceftriaxone. (6) Atrial fibrillation Current Visit: Yes Status: Acute Code(s): I48.91 - UNSPECIFIED ATRIAL FIBRILLATION SNOMED Code(s): 58218077 Comment: Continue tikosyn, replete K as needed and continue xarelto. She is in NSR. (7) COPD (chronic obstructive pulmonary disease) Current Visit: Yes Status: Acute Code(s): J44.9 - CHRONIC OBSTRUCTIVE PULMONARY DISEASE, UNSPECIFIED SNOMED Code(s): 32537773 Comment: No evidence of exacerbation at this time. Conitnue prn albuterol and atrovent. (8) Hypothyroid Current Visit: Yes Status: Acute Code(s): E03.9 - HYPOTHYROIDISM, UNSPECIFIED SNOMED Code(s): 23268113 Comment: TSH is mildly elevated. Will continue usual dose of synthroid for now. (9) DVT prophylaxis Current Visit: Yes Status: Acute Code(s): ZQP5979 - SNOMED Code(s): 025958264 Comment: tania (10) DNR (do not resuscitate) Current Visit: Yes Status: Acute
[2019-10-13 13:56] LABS: Free T4 0.99 ng/dL (0.61-1.12)
[2019-10-13] MEDS: oxyCODONE/Acetamin 5/325 MG* TAB PO PRN ×2 (14:01→20:16)
[2019-10-13] MEDS ORDERED: Midazolam* 1 MG/ML 5 ML VIAL (5 MG) ONE (15:35)
[2019-10-13] MEDS ORDERED: fentaNYL* 50 MCG/ML 2 ML VIAL (100 MCG VIAL) ONE (15:35)
[2019-10-13] MEDS ORDERED: Naloxone* 0.4 MG/ML 1 ML VIAL ONE (15:35)
[2019-10-13] MEDS ORDERED: Lidocaine 2% VISCOUS* 15 ML UDC ONE (15:36)
[2019-10-13] MEDS ORDERED: Flumazenil* 0.1 MG/ML 5 ML MDV ONE (15:36)
[2019-10-13] MEDS: clonazePAM TAB(*) 1 MG PO PRN ×2 (20:17→23:50)
[2019-10-13] MEDS: Ipratropium HFA INHALER(NF) (ALTERNATIVE = NEBS) INH PRN (23:43)
[2019-10-14] MEDS ORDERED: Torsemide TAB 10 MG PO SCH (09:00)
[2019-10-14] MEDS: Dofetilide CAP* 250 MCG PO SCH ×2 (10:05→20:33)
[2019-10-14] MEDS: cefTRIAXone(*) 2 GM in NS 0.9% 100 ML* 100 ML IVPB SCH (10:07)
[2019-10-14] MEDS: Ipratropium HFA INHALER(NF) (ALTERNATIVE = NEBS) INH PRN (10:17)
[2019-10-14] MEDS: Levothyroxine TAB* 75 MCG TAB PO SCH (10:48)
[2019-10-14] MEDS: Famotidine TAB* 20 MG PO SCH ×2 (10:48→20:27)
[2019-10-14] MEDS: Rivaroxaban TAB(*) 20 MG TAB PO SCH (10:48)
[2019-10-14] MEDS: Metoprolol Tartrate TAB* 25 MG PO SCH ×2 (10:48→20:28)
[2019-10-14] MEDS: oxyCODONE/Acetamin 5/325 MG* TAB PO PRN ×3 (10:49→20:39)
[2019-10-14] MEDS: Polyethylene Glycol 3350* 17 GM PACKET PO SCH (10:53)
[2019-10-14] MEDS: Nystatin TOP POWDER* 15 GM BTL TOPICAL SCH ×3 (10:53→20:46)
--- NOTE | 2019-10-14 12:01 | PN ---
Subjective Date of Service: 10/14/19 Interval History: Pt is feeling ok currently but slightly more SOB than prior. She is back on supplemental O2. She is not coughing. She does not note that her LE have become more swollen. Her UE remain markedly swollen. Objective Active Medications: Albuterol (Ventolin Hfa Inhaler*) 2 puff INH Q6H PRN PRN Reason: SOB/WHEEZING Last Admin: 10/13/19 12:10 Dose: 2 puff Clonazepam (Klonopin Tab(*)) 1 mg PO BEDTIME PRN PRN Reason: ANXIETY Last Admin: 10/13/19 23:50 Dose: 1 mg Dofetilide (Tikosyn Cap*) 250 mcg PO Q12H [facility] Last Admin: 10/14/19 10:05 Dose: 250 mcg Famotidine (Pepcid Tab*) 20 mg PO BID [facility] Last Admin: 10/14/19 10:48 Dose: 20 mg Furosemide (Lasix Iv*) 40 mg IV ONCE ONE Stop: 10/14/19 17:01 Guaifenesin/Dextromethorphan (Robitussin Dm 100 Mg/10 Mg In 5 Ml) 10 ml PO Q4H PRN PRN Reason: COUGH Last Admin: 10/09/19 13:16 Dose: 10 ml Ceftriaxone Sodium 2 gm/ (Sodium Chloride) 100 mls @ 200 mls/hr IVPB DAILY [facility] Last Admin: 10/14/19 10:07 Dose: 200 mls/hr Ipratropium [place] (Atrovent Hfa Inhaler(Nf)) 2 puff INH Q6H PRN PRN Reason: SOB/WHEEZING Last Admin: 10/14/19 10:17 Dose: 2 puff Levothyroxine Sodium (Synthroid Tab*) 75 mcg PO DAILY [facility] Last Admin: 10/14/19 10:48 Dose: 75 mcg Magnesium Hydroxide (Milk Of Magnesia Liq*) 30 ml PO Q6H PRN PRN Reason: CONSTIPATION Last Admin: 10/12/19 22:00 Dose: 30 ml Metoprolol Tartrate (Lopressor Tab*) 25 mg PO BID [facility] Last Admin: 10/14/19 10:48 Dose: 25 mg Nystatin (Nystatin Top Powder*) 1 applic TOPICAL BID [facility] Last Admin: 10/14/19 10:53 Dose: 1 applic Oxycodone/Acetaminophen (Percocet 5/325 Tab*) 1 tab PO Q4H PRN PRN Reason: PAIN - MODERATE Last Admin: 10/14/19 10:49 Dose: 1 tab Polyethylene Glycol/Electrolytes (Miralax (17 Gm Dose Nii)) 17 gm PO DAILY [facility] Last Admin: 10/14/19 10:53 Dose: Not Given Rivaroxaban (Xarelto(*)) 20 mg PO DAILY WITH MEAL [facility] Last Admin: 10/14/19 10:48 Dose: 20 mg Throat Lozenges (Chloraseptic Soila*) 1 soila PO Q2H PRN PRN Reason: THROAT DISCOMFORT Torsemide (Torsemide) 20 mg PO MOWEFR [facility] Torsemide (Torsemide) 10 mg PO [place] [facility] Last Admin: 10/14/19 11:05 Dose: 10 mg Vital Signs - 8 hr 10/14/19 10/14/19 10/14/19 04:00 07:54 09:00 Temperature 97.1 F 97.3 F Pulse Rate 70 71 71 Respiratory 16 22 Rate Blood Pressure 109/61 98/49 (mmHg) O2 Sat by Pulse 100 99 Oximetry 10/14/19 10/14/19 10/14/19 10:00 10:29 10:49 Temperature Pulse Rate Respiratory 18 20 Rate Blood Pressure 117/64 (mmHg) O2 Sat by Pulse Oximetry Oxygen Devices in Use Now: Nasal Cannula Appearance: Middle aged female sitting up in a chair, NAD Eyes: No Scleral Icterus Ears/Nose/Mouth/Throat: Mucous Membranes Moist Respiratory: - - diminshed breath sounds at the bases otherwise clear Cardiovascular: NL Sounds; No Murmurs; No JVD, RRR, - - trace edema of the B/L LE, marked edema of L>R UE Abdominal: NL Sounds; No Tenderness; No Distention Extremities: No Clubbing, Cyanosis Skin: - - pt with glove over R hand Neurological: Alert and Oriented x 3 Result Diagrams: 10/12/19 13:00 10/13/19 10:00 Microbiology and Other Data: Microbiology 10/09/19 08:42 Aerobic Blood Culture - Preliminary Blood Venous No Growth Day 2 Anaerobic Blood Culture - Preliminary No Growth Day 2 10/08/19 10:00 Aerobic Blood Culture - Final Blood Venous Strep Agalactiae - (Group B) Anaerobic Blood Culture - Final Strep Agalactiae - (Group B) 10/08/19 11:50 Urine Culture - Final Urine Escherichia Coli Assess/Plan/Problems-Billing Ms Traylor is a 64 yo F with a h/o COPD, hypothyroidism, afib and aortic stenosis who presented to the ER with c/o SOB and was admitted to the ER for treatment of hyponatremia and pneumonia. - Patient Problems (1) RLL pneumonia Current Visit: Yes Status: Acute Code(s): J18.9 - PNEUMONIA, UNSPECIFIED ORGANISM SNOMED Code(s): 060326221 Comment: Pt with possible RLL pneumonia though not completely clear. She continues on ceftriaxone given group B strep bacteremia. Respiratory status was felt to be slightly worse yesterday so SUSSY cancelled. I do not think pneumonia is the reason for her worsening respiratory status (likely fluid). (2) Bacteremia due to group B Streptococcus Current Visit: Yes Status: Acute Code(s): R78.81 - BACTEREMIA; B95.1 - STREPTOCOCCUS, GROUP B, CAUSING DISEASES [facility]SD [facility] SNOMED Code(s): 954118294058 Comment: Pt with 2 of 2 bottles positive for group B strep. TTE does not show any evidence of endocarditis. Continue ceftriaxone. Will get SUSSY given pt has pacemaker and because the the source of the Group B strep is not clear. Plan for SUSSY wednesday after diuresing over the weekend. (3) Hyponatremia Current Visit: Yes Status: Acute Code(s): E87.1 - HYPO-OSMOLALITY AND HYPONATREMIA SNOMED Code(s): 11481446 Comment: Likely secondary to SIADH. Na level is stable despite resuming diuresis. Repeat BMP tomorrow. (4) CHF (congestive heart failure) Current Visit: Yes Status: Acute Code(s): I50.9 - HEART FAILURE, UNSPECIFIED SNOMED Code(s): 80778483 Comment: I suspect at this time the patient has acute on chronic diastolic CHF. Will change to IV diuresis through the weekend. Then resume home torsemide dose. (5) E. coli UTI Current Visit: Yes Status: Acute Code(s): N39.0 - URINARY TRACT INFECTION, SITE NOT SPECIFIED; B96.20 - UNSP ESCHERICHIA COLI THE CAUSE OF DISEASES CLASSD [facility] SNOMED Code(s): 817133360 Comment: Pt with Ecoli UTI. On ceftriaxone. (6) Atrial fibrillation Current Visit: Yes Status: Acute Code(s): I48.91 - UNSPECIFIED ATRIAL FIBRILLATION SNOMED Code(s): 06932138 Comment: Continue tikosyn, replete K as needed and continue xarelto. She is in NSR. (7) COPD (chronic obstructive pulmonary disease) Current Visit: Yes Status: Acute Code(s): J44.9 - CHRONIC OBSTRUCTIVE PULMONARY DISEASE, UNSPECIFIED SNOMED Code(s): 99870957 Comment: No evidence of exacerbation at this time. Conitnue prn albuterol and atrovent. (8) Hypothyroid Current Visit: Yes Status: Acute Code(s): E03.9 - HYPOTHYROIDISM, UNSPECIFIED SNOMED Code(s): 54289947 Comment: TSH is mildly elevated but Free T4 is in good range. Will continue usual dose of synthroid for now. (9) DVT prophylaxis Current Visit: Yes Status: Acute Code(s): SAM3286 - SNOMED Code(s): 966261484 Comment: xarelto (10) DNR (do not resuscitate) Current Visit: Yes Status: Acute
[2019-10-14] MEDS ORDERED: Furosemide IV* 10 MG/ML VIAL (40 MG) IV ONE (17:00)
[2019-10-14] MEDS: clonazePAM TAB(*) 1 MG PO PRN (23:43)
[2019-10-15] MEDS: Ipratropium HFA INHALER(NF) (ALTERNATIVE = NEBS) INH PRN ×2 (00:01→12:42)
[2019-10-15] MEDS: Nystatin TOP POWDER* 15 GM BTL TOPICAL SCH ×2 (08:44→19:49)
[2019-10-15] MEDS: Polyethylene Glycol 3350* 17 GM PACKET PO SCH (08:44)
[2019-10-15] MEDS: Metoprolol Tartrate TAB* 25 MG PO SCH ×2 (08:46→19:49)
[2019-10-15] MEDS: Levothyroxine TAB* 75 MCG TAB PO SCH (08:46)
[2019-10-15] MEDS: Rivaroxaban TAB(*) 20 MG TAB PO SCH (08:46)
[2019-10-15] MEDS: Furosemide IV* 10 MG/ML VIAL (40 MG) IV SCH (08:46)
[2019-10-15] MEDS: Famotidine TAB* 20 MG PO SCH ×2 (08:46→19:38)
[2019-10-15] MEDS: cefTRIAXone(*) 2 GM in NS 0.9% 100 ML* 100 ML IVPB SCH (09:10)
[2019-10-15 10:24] LABS: Calcium 8.6 mg/dL (8.6-10.3); Magnesium 1.9 mg/dL (1.9-2.7)
[2019-10-15 10:30] LABS: BUN/Creatinine Ratio 25.4 (8-20); EGFR African American 107.6 (>60); EGFR Non-African American 88.9 (>60)
--- NOTE | 2019-10-15 10:45 | PN ---
Subjective Date of Service: 10/15/19 Interval History: Negative 1.7L in the past 24 hours since being switched to IV furosemide. She feels better, O2 down to 1L/min. Complains of LUE edema (it is always more edematous than the right, but this is worse than usual) Objective Active Medications: Albuterol (Ventolin Hfa Inhaler*) 2 puff INH Q6H PRN PRN Reason: SOB/WHEEZING Last Admin: 10/13/19 12:10 Dose: 2 puff Clonazepam (Klonopin Tab(*)) 1 mg PO BEDTIME PRN PRN Reason: ANXIETY Last Admin: 10/14/19 23:43 Dose: 1 mg Dofetilide (Tikosyn Cap*) 250 mcg PO Q12H [facility] Last Admin: 10/14/19 20:33 Dose: 250 mcg Famotidine (Pepcid Tab*) 20 mg PO BID [facility] Last Admin: 10/15/19 08:46 Dose: 20 mg Furosemide (Lasix Iv*) 40 mg IV DAILY [facility] Last Admin: 10/15/19 08:46 Dose: 40 mg Guaifenesin/Dextromethorphan (Robitussin Dm 100 Mg/10 Mg In 5 Ml) 10 ml PO Q4H PRN PRN Reason: COUGH Last Admin: 10/09/19 13:16 Dose: 10 ml Ceftriaxone Sodium 2 gm/ (Sodium Chloride) 100 mls @ 200 mls/hr IVPB DAILY [facility] Last Admin: 10/15/19 09:10 Dose: 200 mls/hr Ipratropium [place] (Atrovent Hfa Inhaler(Nf)) 2 puff INH Q6H PRN PRN Reason: SOB/WHEEZING Last Admin: 10/15/19 00:01 Dose: 2 puff Levothyroxine Sodium (Synthroid Tab*) 75 mcg PO DAILY [facility] Last Admin: 10/15/19 08:46 Dose: 75 mcg Magnesium Hydroxide (Milk Of Magnesia Liq*) 30 ml PO Q6H PRN PRN Reason: CONSTIPATION Last Admin: 10/12/19 22:00 Dose: 30 ml Metoprolol Tartrate (Lopressor Tab*) 25 mg PO BID [facility] Last Admin: 10/15/19 08:46 Dose: 25 mg Nystatin (Nystatin Top Powder*) 1 applic TOPICAL BID [facility] Last Admin: 10/15/19 08:44 Dose: 1 applic Oxycodone/Acetaminophen (Percocet 5/325 Tab*) 1 tab PO Q4H PRN PRN Reason: PAIN - MODERATE Last Admin: 10/14/19 20:39 Dose: 1 tab Polyethylene Glycol/Electrolytes (Miralax (17 Gm Dose Nii)) 17 gm PO DAILY [facility] Last Admin: 10/15/19 08:44 Dose: Not Given Rivaroxaban (Xarelto(*)) 20 mg PO DAILY WITH MEAL [facility] Last Admin: 10/15/19 08:46 Dose: 20 mg Throat Lozenges (Chloraseptic Soila*) 1 soila PO Q2H PRN PRN Reason: THROAT DISCOMFORT Vital Signs - 8 hr 10/15/19 10/15/19 10/15/19 03:18 07:31 08:00 Temperature 97 F 97.4 F Pulse Rate 71 74 Respiratory 16 20 20 Rate Blood Pressure 103/57 105/55 (mmHg) O2 Sat by Pulse 100 99 Oximetry Oxygen Devices in Use Now: Nasal Cannula Appearance: alert, well appearing sitting up in the chair Eyes: No Scleral Icterus Ears/Nose/Mouth/Throat: NL Teeth, Lips, Gums Respiratory: - - crackles in R base Cardiovascular: - - systolic murmur at RUSB Abdominal: NL Sounds; No Tenderness; No Distention Extremities: - - marked LUE edema Skin: No Rash or Ulcers Neurological: Alert and Oriented x 3 Result Diagrams: 10/12/19 13:00 10/15/19 10:00 Microbiology and Other Data: Microbiology 10/09/19 08:42 Aerobic Blood Culture - Preliminary Blood Venous No Growth Day 2 Anaerobic Blood Culture - Preliminary No Growth Day 2 10/08/19 10:00 Aerobic Blood Culture - Final Blood Venous Strep Agalactiae - (Group B) Anaerobic Blood Culture - Final Strep Agalactiae - (Group B) 10/08/19 11:50 Urine Culture - Final Urine Escherichia Coli Assess/Plan/Problems-Billing Ms Traylor is a 64 yo F with a h/o COPD, hypothyroidism, afib and aortic stenosis who presented to the ER with c/o SOB and was admitted to the ER for treatment of hyponatremia and pneumonia. - Patient Problems (1) Bacteremia due to group B Streptococcus Current Visit: Yes Status: Acute Code(s): R78.81 - BACTEREMIA; B95.1 - STREPTOCOCCUS, GROUP B, CAUSING DISEASES CLASSD [facility] SNOMED Code(s): 658278672891 Comment: 3/ blood cultures positive; 3/30 blood cultures negative Pt with 2 of 2 bottles positive for group B strep. TTE does not show evidence of endocarditis. Continue ceftriaxone. Will get SUSSY Wednesday given pt has pacemaker and because the source of the Group B strep is not clear. (2) CHF (congestive heart failure) Current Visit: Yes Status: Acute Code(s): I50.9 - HEART FAILURE, UNSPECIFIED SNOMED Code(s): 43503273 Comment: Likely related to worsening Diuresing better on IV lasix, continue for now (3) Atrial fibrillation Current Visit: Yes Status: Acute Code(s): I48.91 - UNSPECIFIED ATRIAL FIBRILLATION SNOMED Code(s): 65243922 Comment: Continue tikosyn, replete K as needed and continue xarelto. She is in NSR. (4) Hyponatremia Current Visit: Yes Status: Acute Code(s): E87.1 - HYPO-OSMOLALITY AND HYPONATREMIA SNOMED Code(s): 89151230 Comment: Likely secondary to SIADH. Na level is stable despite resuming diuresis. Awaiting today's BMP (5) RLL pneumonia Current Visit: Yes Status: Acute Code(s): J18.9 - PNEUMONIA, UNSPECIFIED ORGANISM SNOMED Code(s): 685118319 Comment: Pt with possible RLL pneumonia though not completely clear. She continues on ceftriaxone given group B strep bacteremia. (6) Acute respiratory failure with hypoxia Current Visit: No Status: Acute Priority: High Code(s): J96.01 - ACUTE RESPIRATORY FAILURE WITH HYPOXIA SNOMED Code(s): 12533209 Comment: Improving, down to 2L o2 Likely relatd to pneumonia and CHF (7) QT prolongation Current Visit: No Status: Acute Code(s): R94.31 - ABNORMAL ELECTROCARDIOGRAM [ECG] [EKG] SNOMED Code(s): 724485107 Comment: avoid addition of qt-prolonging medications (8) History of Hodgkin's lymphoma Current Visit: No Status: Chronic Code(s): Z85.71 - PERSONAL HISTORY OF HODGKIN LYMPHOMA SNOMED Code(s): 957026243 Comment: With chronic R loculated pleural effusion, residual R hand neuropathy and left arm lymphedema as a complication of treatment. Status and Disposition: SUSSY tomorrow
[2019-10-15] MEDS: oxyCODONE/Acetamin 5/325 MG* TAB PO PRN ×3 (10:55→22:22)
[2019-10-15 11:04] LABS: Potassium 4.1 mmol/L (3.5-5.0)
[2019-10-15] MEDS ORDERED: Magnesium Oxide TAB* 400 MG PO ONE (11:25)
[2019-10-15] MEDS: Dofetilide CAP* 250 MCG PO SCH ×2 (12:09→19:38)
[2019-10-16] MEDS: clonazePAM TAB(*) 1 MG PO PRN ×2 (01:16→22:43)
[2019-10-16] MEDS: Dofetilide CAP* 250 MCG PO SCH ×2 (07:12→19:08)
[2019-10-16] MEDS: Levothyroxine TAB* 75 MCG TAB PO SCH (07:16)
[2019-10-16] MEDS: oxyCODONE/Acetamin 5/325 MG* TAB PO PRN ×3 (08:37→21:37)
[2019-10-16] MEDS: Ipratropium HFA INHALER(NF) (ALTERNATIVE = NEBS) INH PRN (08:39)
[2019-10-16] MEDS: Famotidine TAB* 20 MG PO SCH ×2 (08:42→21:37)
[2019-10-16] MEDS: Metoprolol Tartrate TAB* 25 MG PO SCH ×2 (08:42→21:37)
[2019-10-16] MEDS: Furosemide IV* 10 MG/ML VIAL (40 MG) IV SCH (08:45)
[2019-10-16] MEDS: Polyethylene Glycol 3350* 17 GM PACKET PO SCH ×2 (08:56→18:57)
[2019-10-16] MEDS ORDERED: Torsemide TAB 10 MG PO SCH (09:00)
--- NOTE | 2019-10-16 09:02 | PN ---
Progress Note - Progress Note Date of Service: 10/16/19 SOAP: Subjective: CC: Group B strep bacteremia HPI: Ms. Traylor is a 64 yo female with PMH significant for COPD, hypothryroidism, left breast cancer s/p mastectomy, , A fib, right brachial plexopathy, chronic left UE lymphedema, D CHF, hyponatremia, hodgkin's lumphoma, and pulmonary HTN; who presented to the emergency room with complaints of SOB and was found to have group B strep bacteremia. Denies fever, chills, nausea, vomiting, or diarrhea. Reports cough in the morning from postnasal drip, this is not new. Shortness of breath resolving. Objective: Vital Signs 10/16/19 10/16/19 03:29 08:37 Temperature 97.6 F Pulse Rate 70 Respiratory 16 18 Rate Blood Pressure 97/47 (mmHg) O2 Sat by Pulse 96 Oximetry Physical Exam: General: NAD, sitting up in a chair HEENT: Moist MM Cardiovascular: Heart rate regular, systolic murmur heard best at the left upper sternal border Respiratory: Lung sounds clear, diminished in bases Abdominal: Bowel sounds present; ABD soft, non tender, non distended MSK: No tenderness with palpation of the neck, back, or spine Skin: No rash Laboratory Results - last 24 hr 10/15/19 10:00 Sodium 135 Potassium 4.1 Chloride 94 L Carbon Dioxide 32 Anion Gap 9 BUN 17 Creatinine 0.67 Est GFR ( Amer) 107.6 Est GFR (Non-Af Amer) 88.9 BUN/Creatinine Ratio 25.4 H Glucose 142 H Calcium 8.6 Magnesium 1.9 Microbiology 10/09/19 08:42 Aerobic Blood Culture - Final Blood Venous No Growth Day 5 Anaerobic Blood Culture - Final No Growth Day 5 10/08/19 10:00 Aerobic Blood Culture - Final Blood Venous Strep Agalactiae - (Group B) Anaerobic Blood Culture - Final Strep Agalactiae - (Group B) 10/08/19 11:50 Urine Culture - Final Urine Escherichia Coli Assessment: 1. Bacteremia. Initial blood cultures with 2/2 bottles positive for group B strep and repeat cultures with no growth to date. Has a pacemaker. She had a TTE showing severe (increased from previous) and no signs of vegetation. Denies back pain, no signs of cellulitis, no other prosthetic material. Afebrile and no leukocytosis. CRP is trending down. 2. Possible right lower lobe PNA. Chest xray on admission with chronic pleural changes in the right lung base and left lung clear. ? this is PNA vs fluid overload in the setting of acute on chronic diastolic CHF exacerbation. Denies cough except when laying down and in the morning in the setting of postnasal drip. Initial leukocytosis has resolved, afebrile, no hypoxia. CRP elevated but trending down. 3. Asymptomatic bacteruria. Urine culture with E coli 10-25K. She denies urinary symptoms (Ceftriaxone that she is receiving will cover this) 4. History of left breast cancer. S/P left mastectomy with chronic left UE lymphedema. 5. COPD. No sign of COPD exacerbation at this time. 6. Clindamycin, PCN, and Levaquin allergies. Plan: Continue Ceftriaxone, day of ABX. SUSSY pending for today. Length of ABX treatment will be based on SUSSY findings. <Marialuisa Lindquist - Last Filed: 10/16/19 20:14> - Progress Note SOAP: I agree with full note by Мария Traylor HEAD REFRIGERATION ENGINEER, in addition, progression of aortic valve disease and CHF in setting of possible IE and cardiac device infection. Agree with SUSSY and cardiology consultation. [] <Makenzie TORRE,Aurelio Wooten - Last Filed: 10/17/19 09:52>
[2019-10-16] MEDS: cefTRIAXone(*) 2 GM in NS 0.9% 100 ML* 100 ML IVPB SCH (09:41)
[2019-10-16 10:01] LABS: ABS Basophils 0.1 10^3/ul (0-0.2); ABS Eosinophils 0.1 10^3/ul (0-0.6); ABS Lymphocytes 0.4 10^3/ul (1.0-4.8); ABS Monocytes 0.6 10^3/ul (0-0.8); ABS Neutrophils 5.4 10^3/ul (1.5-7.7); Eosinophil % 1.1 %; Hematocrit 41 % (35-47); Hemoglobin 13.4 g/dL (12.0-16.0); Mean Corpuscular HGB Conc 33 g/dL (31-36); Mean Corpuscular Hemoglobin 29 pg (27-31); Mean Corpuscular Volume 89 fL (80-97); Mean Platelet Volume 7.3 fL (7.4-10.4); Nucleated Red Blood Cells % 0.1; Platelet Count 334 10^3/uL (150-450); Red Blood Count 4.61 10^6 /uL (3.70-4.87); Red Cell Distribution Width 16 % (10-15); White Blood Count 6.5 10^3/uL (3.5-10.8)
[2019-10-16 10:13] LABS: Albumin 3.3 g/dL (3.2-5.2); BUN/Creatinine Ratio 24.6 (8-20); EGFR African American 111.4 (>60); EGFR Non-African American 92.1 (>60); Globulin 3.3 g/dL (2-4); Magnesium 1.9 mg/dL (1.9-2.7); Potassium 3.6 mmol/L (3.5-5.0); Total Bilirubin 0.8 mg/dL (0.2-1.0); Total Protein 6.6 g/dL (6.4-8.9)
--- NOTE | 2019-10-16 10:52 | PN ---
Subjective Date of Service: 10/16/19 Interval History: No overnight events. Kallie has been weaned to room air. She is concerned about the timing of some of her medications but otherwise feels good. She has no shortness of breath, ches tpain, palpitations, and has been afebrile. Swelling in arms is improving but still not at baseline. Objective Active Medications: Albuterol (Ventolin Hfa Inhaler*) 2 puff INH Q6H PRN PRN Reason: SOB/WHEEZING Last Admin: 10/13/19 12:10 Dose: 2 puff Clonazepam (Klonopin Tab(*)) 1 mg PO BEDTIME PRN PRN Reason: ANXIETY Last Admin: 10/16/19 01:16 Dose: 1 mg Dofetilide (Tikosyn Cap*) 250 mcg PO Q12H [facility] Last Admin: 10/16/19 07:12 Dose: 250 mcg Famotidine (Pepcid Tab*) 20 mg PO BID [facility] Last Admin: 10/16/19 08:42 Dose: 20 mg Furosemide (Lasix Iv*) 40 mg IV DAILY [facility] Last Admin: 10/16/19 08:45 Dose: 40 mg Guaifenesin/Dextromethorphan (Robitussin Dm 100 Mg/10 Mg In 5 Ml) 10 ml PO Q4H PRN PRN Reason: COUGH Last Admin: 10/09/19 13:16 Dose: 10 ml Ceftriaxone Sodium 2 gm/ (Sodium Chloride) 100 mls @ 200 mls/hr IVPB DAILY [facility] Last Admin: 10/16/19 09:41 Dose: 200 mls/hr Ipratropium [place] (Atrovent Hfa Inhaler(Nf)) 2 puff INH Q6H PRN PRN Reason: SOB/WHEEZING Last Admin: 10/16/19 08:39 Dose: 2 puff Levothyroxine Sodium (Synthroid Tab*) 75 mcg PO DAILY@0600 [facility] Magnesium Hydroxide (Milk Of Magnesia Liq*) 30 ml PO Q6H PRN PRN Reason: CONSTIPATION Last Admin: 10/12/19 22:00 Dose: 30 ml Metoprolol Tartrate (Lopressor Tab*) 25 mg PO BID [facility] Last Admin: 10/16/19 08:42 Dose: 25 mg Nystatin (Nystatin Top Powder*) 1 applic TOPICAL BID [facility] Last Admin: 10/15/19 19:49 Dose: 1 applic Oxycodone/Acetaminophen (Percocet 5/325 Tab*) 1 tab PO Q4H PRN PRN Reason: PAIN - MODERATE Last Admin: 10/16/19 08:37 Dose: 1 tab Polyethylene Glycol/Electrolytes (Miralax (17 Gm Dose Nii)) 17 gm PO DAILY [facility] Last Admin: 10/16/19 08:56 Dose: Not Given Rivaroxaban (Xarelto(*)) 20 mg PO DAILY WITH MEAL [facility] Last Admin: 10/15/19 08:46 Dose: 20 mg Throat Lozenges (Chloraseptic Soila*) 1 soila PO Q2H PRN PRN Reason: THROAT DISCOMFORT Vital Signs - 8 hr 10/16/19 10/16/19 10/16/19 03:16 03:29 08:00 Temperature 97.6 F Pulse Rate 70 Respiratory 16 16 20 Rate Blood Pressure 97/47 (mmHg) O2 Sat by Pulse 96 Oximetry 10/16/19 08:37 Temperature Pulse Rate Respiratory 18 Rate Blood Pressure (mmHg) O2 Sat by Pulse Oximetry Oxygen Devices in Use Now: None Appearance: alert, well appearing, also seen ambulating in hallways with PT Eyes: No Scleral Icterus Ears/Nose/Mouth/Throat: NL Teeth, Lips, Gums Neck: NL Appearance and Movements; NL JVP Respiratory: Symmetrical Chest Expansion and Respiratory Effort, - - crackles R base Cardiovascular: - - harsh systolic murmur throughout Abdominal: NL Sounds; No Tenderness; No Distention Extremities: - - LUE > RUE, both with pitting edema. R fingers are tense with purple discoloraion (unchanged from baseline per her report) Result Diagrams: 10/16/19 09:50 10/16/19 09:50 Microbiology and Other Data: Microbiology 10/09/19 08:42 Aerobic Blood Culture - Preliminary Blood Venous No Growth Day 2 Anaerobic Blood Culture - Preliminary No Growth Day 2 10/08/19 10:00 Aerobic Blood Culture - Final Blood Venous Strep Agalactiae - (Group B) Anaerobic Blood Culture - Final Strep Agalactiae - (Group B) 10/08/19 11:50 Urine Culture - Final Urine Escherichia Coli Assess/Plan/Problems-Billing Ms Traylor is a 64 yo F with a h/o COPD, hypothyroidism, afib and aortic stenosis who presented to the ER with c/o SOB and was admitted to the ER for treatment of hyponatremia and pneumonia. - Patient Problems (1) Bacteremia due to group B Streptococcus Current Visit: Yes Status: Acute Code(s): R78.81 - BACTEREMIA; B95.1 - STREPTOCOCCUS, GROUP B, CAUSING DISEASES CLASSD ELSWHR SNOMED Code(s): 192225639185 Comment: 3/ blood cultures positive; 3/30 blood cultures negative Pt with 2 of 2 bottles positive for group B strep. TTE does not show evidence of endocarditis. Continue ceftriaxone. Will get SUSSY today given pt has pacemaker and because the source of the Group B strep is not clear. (2) CHF (congestive heart failure) Current Visit: Yes Status: Acute Code(s): I50.9 - HEART FAILURE, UNSPECIFIED SNOMED Code(s): 17270296 Comment: Likely related to worsening Diuresing better on IV lasix, continue for now (3) Atrial fibrillation Current Visit: Yes Status: Acute Code(s): I48.91 - UNSPECIFIED ATRIAL FIBRILLATION SNOMED Code(s): 71430427 Comment: Continue tikosyn, replete K as needed and continue xarelto. She is in NSR. (4) Hyponatremia Current Visit: Yes Status: Acute Code(s): E87.1 - HYPO-OSMOLALITY AND HYPONATREMIA SNOMED Code(s): 79198615 Comment: Likely secondary to SIADH. Na level is stable despite resuming diuresis. Awaiting today's BMP (5) RLL pneumonia Current Visit: Yes Status: Acute Code(s): J18.9 - PNEUMONIA, UNSPECIFIED ORGANISM SNOMED Code(s): 434403636 Comment: Pt with possible RLL pneumonia though not completely clear. She continues on ceftriaxone given group B strep bacteremia. (6) Acute respiratory failure with hypoxia Current Visit: No Status: Acute Priority: High Code(s): J96.01 - ACUTE RESPIRATORY FAILURE WITH HYPOXIA SNOMED Code(s): 25116565 Comment: Resolved Likely relatd to pneumonia and CHF (7) QT prolongation Current Visit: No Status: Acute Code(s): R94.31 - ABNORMAL ELECTROCARDIOGRAM [ECG] [EKG] SNOMED Code(s): 623409703 Comment: avoid addition of qt-prolonging medications (8) History of Hodgkin's lymphoma Current Visit: No Status: Chronic Code(s): Z85.71 - PERSONAL HISTORY OF HODGKIN LYMPHOMA SNOMED Code(s): 182195821 Comment: With chronic R loculated pleural effusion, residual R hand neuropathy and left arm lymphedema as a complication of treatment. Status and Disposition: SUSSY today
[2019-10-16] MEDS ORDERED: fentaNYL* 50 MCG/ML 2 ML VIAL (100 MCG VIAL) ONE (12:17)
[2019-10-16] MEDS ORDERED: Lidocaine 2% VISCOUS* 15 ML UDC ONE (12:17)
[2019-10-16] MEDS ORDERED: Flumazenil* 0.1 MG/ML 5 ML MDV ONE (12:17)
[2019-10-16] MEDS ORDERED: Midazolam* 1 MG/ML 5 ML VIAL (5 MG) ONE (12:17)
[2019-10-16] MEDS ORDERED: Naloxone* 0.4 MG/ML 1 ML VIAL ONE (12:17)
[2019-10-16] MEDS: Nystatin TOP POWDER* 15 GM BTL TOPICAL SCH ×2 (15:46→21:37)
[2019-10-16] MEDS: Rivaroxaban TAB(*) 20 MG TAB PO SCH (21:36)
[2019-10-17] MEDS: Levothyroxine TAB* 75 MCG TAB PO SCH (05:34)
[2019-10-17] MEDS: oxyCODONE/Acetamin 5/325 MG* TAB PO PRN ×3 (05:34→20:20)
[2019-10-17] MEDS ORDERED: Lactated Ringers 1000 ML Bag* 1,000 ML IV SCH (06:00)
[2019-10-17] MEDS ORDERED: Midazolam* 1 MG/ML 5 ML VIAL (5 MG) ONE (08:38)
[2019-10-17] MEDS ORDERED: KETAMINE HCL* 50 MG/ML 10 ML VIAL ONE (08:38)
[2019-10-17] MEDS: Metoprolol Tartrate TAB* 25 MG PO SCH ×2 (08:46→20:19)
[2019-10-17] MEDS: Dofetilide CAP* 250 MCG PO SCH ×2 (08:46→20:18)
[2019-10-17] MEDS: Furosemide IV* 10 MG/ML VIAL (40 MG) IV SCH (08:46)
[2019-10-17] MEDS: Famotidine TAB* 20 MG PO SCH ×2 (08:46→19:59)
[2019-10-17] MEDS ORDERED: DiMENhydriNATE IV* 50 MG/ML VIAL IV PUSH PRN (08:51)
[2019-10-17] MEDS ORDERED: Naloxone* 0.4 MG/ML 1 ML VIAL IV PRN (08:51)
[2019-10-17] MEDS ORDERED: Levalbuterol 0.63MG/3ML NEB* UNIT OF USE INH PRN (08:51)
[2019-10-17] MEDS ORDERED: Acetaminophen TAB* 325 MG PO PRN (08:51)
[2019-10-17] MEDS ORDERED: Dexamethasone IV* 4 MG/ML 1 ML (4 MG) ONE (08:53)
[2019-10-17] MEDS ORDERED: Glycopyrrolate IV* 0.2 MG/ML 1 ML VIAL ONE (08:53)
[2019-10-17] MEDS: Ipratropium HFA INHALER(NF) (ALTERNATIVE = NEBS) INH PRN ×2 (08:53→17:23)
[2019-10-17] MEDS ORDERED: Ondansetron INJ* 2 MG/ML VIAL ONE (08:53)
[2019-10-17] MEDS: Nystatin TOP POWDER* 15 GM BTL TOPICAL SCH ×2 (08:59→20:22)
[2019-10-17] MEDS: Polyethylene Glycol 3350* 17 GM PACKET PO SCH (08:59)
[2019-10-17] MEDS: cefTRIAXone(*) 2 GM in NS 0.9% 100 ML* 100 ML IVPB SCH (08:59)
--- NOTE | 2019-10-17 10:51 | PN ---
Progress Note - Progress Note Date of Service: 10/17/19 SOAP: Subjective: CC: Group B strep bacteremia HPI: Ms. Traylor is a 64 yo female with PMH significant for COPD, hypothryroidism, left breast cancer s/p mastectomy, , A fib, right brachial plexopathy, chronic left UE lymphedema, D CHF, hyponatremia, hodgkin's lumphoma, and pulmonary HTN; who presented to the emergency room with complaints of SOB and was found to have group B strep bacteremia. Denies fever, chills, shortness of breath, cough, nausea, vomiting, or diarrhea. Reports mild constipation. She is concerned she is not getting enough fluids with the water restriction. Objective: Vital Signs - 8 hr 10/17/19 10/17/19 10/17/19 03:12 05:34 07:28 Temperature 97.3 F 97.8 F Pulse Rate 77 71 Respiratory 18 13 16 Rate Blood Pressure 122/52 101/44 (mmHg) O2 Sat by Pulse 97 98 Oximetry Physical Exam: General: NAD, sitting up in a chair HEENT: Moist MM Cardiovascular: Heart rate regular, systolic murmur heard best at the left upper sternal border Respiratory: Lung sounds clear, diminished in bases Abdominal: Bowel sounds present; ABD soft, non tender, non distended MSK: No tenderness with palpation of the neck, back, or spine Skin: No rash Microbiology 10/09/19 08:42 Aerobic Blood Culture - Final Blood Venous No Growth Day 5 Anaerobic Blood Culture - Final No Growth Day 5 10/08/19 10:00 Aerobic Blood Culture - Final Blood Venous Strep Agalactiae - (Group B) Anaerobic Blood Culture - Final Strep Agalactiae - (Group B) 10/08/19 11:50 Urine Culture - Final Urine Escherichia Coli Assessment: 1. Bacteremia. Initial blood cultures with 2/2 bottles positive for group B strep and repeat cultures with no growth to date. Has a pacemaker. She had a TTE showing severe (increased from previous) and no signs of vegetation. Denies back pain, no signs of cellulitis, no other prosthetic material. Afebrile and no leukocytosis. CRP is trending down. Concern for possible infective endocarditis and cardiac device infection. 2. Possible right lower lobe PNA. Chest xray on admission with chronic pleural changes in the right lung base and left lung clear. ? this is PNA vs fluid overload in the setting of acute on chronic diastolic CHF exacerbation. Denies cough except when laying down and in the morning in the setting of postnasal drip. Initial leukocytosis has resolved, afebrile, no hypoxia. CRP elevated but trending down. 3. Asymptomatic bacteruria. Urine culture with E coli 10-25K. She denies urinary symptoms (Ceftriaxone that she is receiving will cover this) 4. History of left breast cancer. S/P left mastectomy with chronic left UE lymphedema. 5. COPD. No sign of COPD exacerbation at this time. 6. Clindamycin, PCN, and Levaquin allergies. Plan: Continue Ceftriaxone, day 9 of ABX. SUSSY pending for tomorrow. Length of ABX treatment will be based on SUSSY findings.
[2019-10-17] MEDS: Rivaroxaban TAB(*) 20 MG TAB PO SCH ×2 (11:01→17:22)
--- NOTE | 2019-10-17 17:36 | PN ---
Subjective Date of Service: 10/17/19 Interval History: Kallie is feeling better today. SUSSY was attempted yesterday and was unable to be performed--Dr. Fuentes could not traverse the pharynx. She declined a re- attempt today, but agrees to try again tomorrow with anesthesia. She feels her swelling is improving. Objective Active Medications: Acetaminophen (Tylenol Tab*) 650 mg PO ONCE PRN PRN Reason: PAIN - MILD Albuterol (Ventolin Hfa Inhaler*) 2 puff INH Q6H PRN PRN Reason: SOB/WHEEZING Last Admin: 10/13/19 12:10 Dose: 2 puff Clonazepam (Klonopin Tab(*)) 1 mg PO BEDTIME PRN PRN Reason: ANXIETY Last Admin: 10/16/19 22:43 Dose: 1 mg Dimenhydrinate (Dramamine Iv*) 12.5 mg IV PUSH ONCE PRN PRN Reason: NAUSEA/VOMITING Dofetilide (Tikosyn Cap*) 250 mcg PO Q12H [facility] Last Admin: 10/17/19 08:46 Dose: 250 mcg Famotidine (Pepcid Tab*) 20 mg PO BID [facility] Last Admin: 10/17/19 08:46 Dose: 20 mg Furosemide (Lasix Iv*) 40 mg IV DAILY [facility] Last Admin: 10/17/19 08:46 Dose: 40 mg Guaifenesin/Dextromethorphan (Robitussin Dm 100 Mg/10 Mg In 5 Ml) 10 ml PO Q4H PRN PRN Reason: COUGH Last Admin: 10/09/19 13:16 Dose: 10 ml Ceftriaxone Sodium 2 gm/ (Sodium Chloride) 100 mls @ 200 mls/hr IVPB DAILY [facility] Last Admin: 10/17/19 08:59 Dose: 200 mls/hr Lactated Ringer's (Lactated Ringers 1000 Ml Bag*) 1,000 mls @ 50 mls/hr IV PER RATE [facility] Ipratropium [place] (Atrovent Hfa Inhaler(Nf)) 2 puff INH Q6H PRN PRN Reason: SOB/WHEEZING Last Admin: 10/17/19 17:23 Dose: 2 puff Levalbuterol HCl (Xopenex 0.63mg/3ml Neb*) 0.63 mg INH ONCE PRN PRN Reason: SOB/WHEEZING Levothyroxine Sodium (Synthroid Tab*) 75 mcg PO DAILY@0600 [facility] Last Admin: 10/17/19 05:34 Dose: 75 mcg Magnesium Hydroxide (Milk Of [place] Liq*) 30 ml PO Q6H PRN PRN Reason: CONSTIPATION Last Admin: 10/12/19 22:00 Dose: 30 ml Metoprolol Tartrate (Lopressor Tab*) 25 mg PO BID [facility] Last Admin: 10/17/19 08:46 Dose: 25 mg Naloxone HCl (Narcan*) 0.08 mg IV Q2M PRN PRN Reason: severe induced resp depression Nystatin (Nystatin Top Powder*) 1 applic TOPICAL BID [facility] Last Admin: 10/17/19 08:59 Dose: 1 applic Oxycodone/Acetaminophen (Percocet 5/325 Tab*) 1 tab PO Q4H PRN PRN Reason: PAIN - MODERATE Last Admin: 10/17/19 13:08 Dose: 1 tab Polyethylene Glycol/Electrolytes (Miralax (17 Gm Dose Nii)) 17 gm PO DAILY [facility] Last Admin: 10/17/19 08:59 Dose: Not Given Rivaroxaban (Xarelto(*)) 20 mg PO DAILY@1700 [facility] Last Admin: 10/17/19 17:22 Dose: 20 mg Throat Lozenges (Chloraseptic Soila*) 1 soila PO Q2H PRN PRN Reason: THROAT DISCOMFORT Vital Signs - 8 hr 10/17/19 10/17/19 10/17/19 11:40 13:08 15:57 Temperature 97.5 F Pulse Rate 69 Respiratory 16 18 16 Rate Blood Pressure 93/37 (mmHg) O2 Sat by Pulse 98 Oximetry 10/17/19 16:00 Temperature 97.9 F Pulse Rate 74 Respiratory 20 Rate Blood Pressure 99/43 (mmHg) O2 Sat by Pulse 99 Oximetry Oxygen Devices in Use Now: Nasal Cannula Appearance: alert, well appearing Eyes: No Scleral Icterus Respiratory: - - crackles at right base Cardiovascular: NL Sounds; No Murmurs; No JVD, RRR, - - harsh systolic murmur RUSB Abdominal: NL Sounds; No Tenderness; No Distention Extremities: - - LUE swelling > RUE. R hand with raynauds changes, tense skin, unable to flex thumb and first digit on right. Skin: No Rash or Ulcers Neurological: Alert and Oriented x 3 Result Diagrams: 10/16/19 09:50 10/16/19 09:50 Microbiology and Other Data: Microbiology 10/09/19 08:42 Aerobic Blood Culture - Preliminary Blood Venous No Growth Day 2 Anaerobic Blood Culture - Preliminary No Growth Day 2 10/08/19 10:00 Aerobic Blood Culture - Final Blood Venous Strep Agalactiae - (Group B) Anaerobic Blood Culture - Final Strep Agalactiae - (Group B) 10/08/19 11:50 Urine Culture - Final Urine Escherichia Coli Assess/Plan/Problems-Billing Ms Traylor is a 64 yo F with a h/o COPD, hypothyroidism, afib and aortic stenosis who presented to the ER with c/o SOB was found to have pneumonia vs. pulmonary edema, worsening , and strep bacteremia. - Patient Problems (1) Bacteremia due to group B Streptococcus Current Visit: Yes Status: Acute Code(s): R78.81 - BACTEREMIA; B95.1 - STREPTOCOCCUS, GROUP B, CAUSING DISEASES CLASSD ELSWHR SNOMED Code(s): 366497470760 Comment: 10/07 blood cultures positive; / blood cultures negative for GBS TTE does not show evidence of endocarditis. Continue ceftriaxone. Re-try SUSSY tomorrow with anesthesia (2) CHF (congestive heart failure) Current Visit: Yes Status: Acute Code(s): I50.9 - HEART FAILURE, UNSPECIFIED SNOMED Code(s): 15136617 Comment: Likely related to worsening Diuresing better on IV lasix, continue for now (3) Atrial fibrillation Current Visit: Yes Status: Acute Code(s): I48.91 - UNSPECIFIED ATRIAL FIBRILLATION SNOMED Code(s): 21507049 Comment: Continue tikosyn, replete K as needed and continue xarelto. She is in NSR. (4) Hyponatremia Current Visit: Yes Status: Acute Code(s): E87.1 - HYPO-OSMOLALITY AND HYPONATREMIA SNOMED Code(s): 99751516 Comment: Likely secondary to SIADH. Na level is stable despite resuming diuresis. (5) RLL pneumonia Current Visit: Yes Status: Acute Code(s): J18.9 - PNEUMONIA, UNSPECIFIED ORGANISM SNOMED Code(s): 472292172 Comment: Pt with possible RLL pneumonia though not completely clear. She continues on ceftriaxone given group B strep bacteremia. (6) Acute respiratory failure with hypoxia Current Visit: No Status: Acute Priority: High Code(s): J96.01 - ACUTE RESPIRATORY FAILURE WITH HYPOXIA SNOMED Code(s): 06782735 Comment: Resolved Likely relatd to pneumonia and CHF (7) QT prolongation Current Visit: No Status: Acute Code(s): R94.31 - ABNORMAL ELECTROCARDIOGRAM [ECG] [EKG] SNOMED Code(s): 110068061 Comment: avoid addition of qt-prolonging medications LBBB also, so tikosyn still acceptable (8) History of Hodgkin's lymphoma Current Visit: No Status: Chronic Code(s): Z85.71 - PERSONAL HISTORY OF HODGKIN LYMPHOMA SNOMED Code(s): 538357949 Comment: With chronic R loculated pleural effusion, residual R hand neuropathy and left arm lymphedema as a complication of treatment. Status and Disposition: SUSSY tomorrow
[2019-10-17] MEDS: clonazePAM TAB(*) 1 MG PO PRN (23:26)
[2019-10-18] MEDS: Levothyroxine TAB* 75 MCG TAB PO SCH (06:24)
[2019-10-18] MEDS: Dofetilide CAP* 250 MCG PO SCH ×2 (07:33→19:27)
[2019-10-18 07:53] LABS: CO2 Carbon Dioxide 34 mmol/L (22-32); Calcium 8.7 mg/dL (8.6-10.3); Chloride 96 mmol/L (101-111); Sodium 136 mmol/L (135-145)
[2019-10-18 07:58] LABS: BUN/Creatinine Ratio 27.1 (8-20); Blood Urea Nitrogen 16 mg/dL (6-24); EGFR African American 124.6 (>60); EGFR Non-African American 102.9 (>60); Glucose 102 mg/dL (70-100)
[2019-10-18 08:01] LABS: Anion Gap 6 mmol/L (2-11)
--- NOTE | 2019-10-18 08:56 | PN ---
Subjective Date of Service: 10/18/19 Interval History: Kallie feels good today. No complaints. SUSSY scheduled for this afternoon. Afebrile. Objective Active Medications: Acetaminophen (Tylenol Tab*) 650 mg PO ONCE PRN PRN Reason: PAIN - MILD Albuterol (Ventolin Hfa Inhaler*) 2 puff INH Q6H PRN PRN Reason: SOB/WHEEZING Last Admin: 10/13/19 12:10 Dose: 2 puff Clonazepam (Klonopin Tab(*)) 1 mg PO BEDTIME PRN PRN Reason: ANXIETY Last Admin: 10/17/19 23:26 Dose: 1 mg Dimenhydrinate (Dramamine Iv*) 12.5 mg IV PUSH ONCE PRN PRN Reason: NAUSEA/VOMITING Dofetilide (Tikosyn Cap*) 250 mcg PO Q12H [facility] Last Admin: 10/18/19 07:33 Dose: 250 mcg Famotidine (Pepcid Tab*) 20 mg PO BID [facility] Last Admin: 10/17/19 19:59 Dose: Not Given Furosemide (Lasix Iv*) 40 mg IV DAILY [facility] Last Admin: 10/17/19 08:46 Dose: 40 mg Guaifenesin/Dextromethorphan (Robitussin Dm 100 Mg/10 Mg In 5 Ml) 10 ml PO Q4H PRN PRN Reason: COUGH Last Admin: 10/09/19 13:16 Dose: 10 ml Ceftriaxone Sodium 2 gm/ (Sodium Chloride) 100 mls @ 200 mls/hr IVPB DAILY [facility] Last Admin: 10/17/19 08:59 Dose: 200 mls/hr Lactated Ringer's (Lactated Ringers 1000 Ml Bag*) 1,000 mls @ 50 mls/hr IV PER RATE [facility] Ipratropium [place] (Atrovent Hfa Inhaler(Nf)) 2 puff INH Q6H PRN PRN Reason: SOB/WHEEZING Last Admin: 10/17/19 17:23 Dose: 2 puff Levalbuterol HCl (Xopenex 0.63mg/3ml Neb*) 0.63 mg INH ONCE PRN PRN Reason: SOB/WHEEZING Levothyroxine Sodium (Synthroid Tab*) 75 mcg PO DAILY@0600 [facility] Last Admin: 10/18/19 06:24 Dose: 75 mcg Magnesium Hydroxide (Milk Of Magnesia Liq*) 30 ml PO Q6H PRN PRN Reason: CONSTIPATION Last Admin: 10/12/19 22:00 Dose: 30 ml Metoprolol Tartrate (Lopressor Tab*) 25 mg PO BID [facility] Last Admin: 10/17/19 20:19 Dose: 25 mg Naloxone HCl (Narcan*) 0.08 mg IV Q2M PRN PRN Reason: severe induced resp depression Nystatin (Nystatin Top Powder*) 1 applic TOPICAL BID [facility] Last Admin: 10/17/19 20:22 Dose: 1 applic Oxycodone/Acetaminophen (Percocet 5/325 Tab*) 1 tab PO Q4H PRN PRN Reason: PAIN - MODERATE Last Admin: 10/17/19 20:20 Dose: 1 tab Polyethylene Glycol/Electrolytes (Miralax (17 Gm Dose Nii)) 17 gm PO DAILY [facility] Last Admin: 10/17/19 08:59 Dose: Not Given Rivaroxaban (Xarelto(*)) 20 mg PO DAILY@1700 [facility] Last Admin: 10/17/19 17:22 Dose: 20 mg Throat Lozenges (Chloraseptic Soila*) 1 soila PO Q2H PRN PRN Reason: THROAT DISCOMFORT Vital Signs - 8 hr 10/18/19 10/18/19 01:30 03:07 Temperature 97.3 F Pulse Rate 77 Respiratory 16 16 Rate Blood Pressure 101/55 (mmHg) O2 Sat by Pulse 96 Oximetry Oxygen Devices in Use Now: Nasal Cannula Appearance: alert, well appearing Eyes: No Scleral Icterus Ears/Nose/Mouth/Throat: NL Teeth, Lips, Gums Respiratory: - - crackles right lung base Cardiovascular: - - harsh systolic murmur RUSB Abdominal: NL Sounds; No Tenderness; No Distention Lymphatic: No Cervical Adenopathy Extremities: - - LUE swelling improving, still > RUE. Right hand with raynaud' s phenomenon, tight shiny skin Result Diagrams: 10/18/19 09:20 10/18/19 09:20 Microbiology and Other Data: Microbiology 10/09/19 08:42 Aerobic Blood Culture - Preliminary Blood Venous No Growth Day 2 Anaerobic Blood Culture - Preliminary No Growth Day 2 10/08/19 10:00 Aerobic Blood Culture - Final Blood Venous Strep Agalactiae - (Group B) Anaerobic Blood Culture - Final Strep Agalactiae - (Group B) 10/08/19 11:50 Urine Culture - Final Urine Escherichia Coli Assess/Plan/Problems-Billing Ms Traylor is a 64 yo F with a h/o COPD, hypothyroidism, afib and aortic stenosis who presented to the ER with c/o SOB was found to have pneumonia vs. pulmonary edema, worsening , and strep bacteremia. - Patient Problems (1) Bacteremia due to group B Streptococcus Current Visit: Yes Status: Acute Code(s): R78.81 - BACTEREMIA; B95.1 - STREPTOCOCCUS, GROUP B, CAUSING DISEASES CLASSD ELSWHR SNOMED Code(s): 696993857420 Comment: 10/07 blood cultures positive; 10/08 blood cultures negative for GBS TTE does not show evidence of endocarditis. Continue ceftriaxone. Re-try SUSSY today with anesthesia Antibiotic plans to follow Need to ensure worsening is not related to a vegetation (2) CHF (congestive heart failure) Current Visit: Yes Status: Acute Code(s): I50.9 - HEART FAILURE, UNSPECIFIED SNOMED Code(s): 87277068 Comment: Likely related to worsening Diuresing better on IV lasix, continue for now (3) Atrial fibrillation Current Visit: Yes Status: Acute Code(s): I48.91 - UNSPECIFIED ATRIAL FIBRILLATION SNOMED Code(s): 46135741 Comment: Continue tikosyn, replete K as needed and continue xarelto. She is in NSR. (4) Hyponatremia Current Visit: Yes Status: Acute Code(s): E87.1 - HYPO-OSMOLALITY AND HYPONATREMIA SNOMED Code(s): 79186226 Comment: Likely secondary to SIADH. Na level is stable despite resuming diuresis. (5) RLL pneumonia Current Visit: Yes Status: Acute Code(s): J18.9 - PNEUMONIA, UNSPECIFIED ORGANISM SNOMED Code(s): 841787170 Comment: Pt with possible RLL pneumonia though not completely clear. She continues on ceftriaxone given group B strep bacteremia. (6) Acute respiratory failure with hypoxia Current Visit: No Status: Acute Priority: High Code(s): J96.01 - ACUTE RESPIRATORY FAILURE WITH HYPOXIA SNOMED Code(s): 41283504 Comment: Resolved Likely relatd to pneumonia and CHF No home o2 requirement (7) QT prolongation Current Visit: No Status: Acute Code(s): R94.31 - ABNORMAL ELECTROCARDIOGRAM [ECG] [EKG] SNOMED Code(s): 298223873 Comment: avoid addition of qt-prolonging medications LBBB also, so tikosyn still acceptable, confirmed with cardiology (8) History of Hodgkin's lymphoma Current Visit: No Status: Chronic Code(s): Z85.71 - PERSONAL HISTORY OF HODGKIN LYMPHOMA SNOMED Code(s): 183778356 Comment: With chronic R loculated pleural effusion, residual R hand neuropathy and left arm lymphedema as a complication of treatment. Status and Disposition: SUSSY today
[2019-10-18] MEDS: cefTRIAXone(*) 2 GM in NS 0.9% 100 ML* 100 ML IVPB SCH (09:24)
[2019-10-18] MEDS: Furosemide IV* 10 MG/ML VIAL (40 MG) IV SCH (09:25)
[2019-10-18] MEDS: Famotidine TAB* 20 MG PO SCH ×2 (09:25→20:48)
[2019-10-18] MEDS: Metoprolol Tartrate TAB* 25 MG PO SCH ×2 (09:25→22:20)
[2019-10-18] MEDS: Polyethylene Glycol 3350* 17 GM PACKET PO SCH (09:26)
[2019-10-18] MEDS: Nystatin TOP POWDER* 15 GM BTL TOPICAL SCH ×2 (09:26→22:22)
--- NOTE | 2019-10-18 09:27 | PN ---
Progress Note - Progress Note Date of Service: 10/18/19 SOAP: Subjective: CC: Group B strep bacteremia HPI: Ms. Traylor is a 64 yo female with PMH significant for COPD, hypothryroidism, left breast cancer s/p mastectomy, , A fib, right brachial plexopathy, chronic left UE lymphedema, D CHF, hyponatremia, hodgkin's lumphoma, and pulmonary HTN; who presented to the emergency room with complaints of SOB and was found to have group B strep bacteremia. Denies fever, chills, cough, nausea , vomiting, or diarrhea. Reports passing flatus and mild shortness of breath that is improved with use of her inhalers. Objective: Vital Signs - 8 hr 10/18/19 10/18/19 01:30 03:07 Temperature 97.3 F Pulse Rate 77 Respiratory 16 16 Rate Blood Pressure 101/55 (mmHg) O2 Sat by Pulse 96 Oximetry Physical Exam: General: NAD, sitting up in a chair HEENT: Moist MM Cardiovascular: Heart rate regular, systolic murmur heard best at the left upper sternal border Respiratory: Lung sounds clear, diminished in bases Abdominal: Bowel sounds present; ABD soft, non tender, non distended MSK: Left UE edema, improving and near Pt's baseline Skin: No rash. Right fingers red (previous purple discoloration has resolved) with shiny edema Laboratory Results - last 24 hr 10/18/19 07:07 Sodium 136 Potassium TNP Chloride 96 L Carbon Dioxide 34 H Anion Gap 6 BUN 16 Creatinine 0.59 Est GFR ( Amer) 124.6 Est GFR (Non-Af Amer) 102.9 BUN/Creatinine Ratio 27.1 H Glucose 102 H Calcium 8.7 Magnesium TNP C-Reactive Protein 40.00 H Microbiology 10/09/19 08:42 Aerobic Blood Culture - Final Blood Venous No Growth Day 5 Anaerobic Blood Culture - Final No Growth Day 5 10/08/19 10:00 Aerobic Blood Culture - Final Blood Venous Strep Agalactiae - (Group B) Anaerobic Blood Culture - Final Strep Agalactiae - (Group B) 10/08/19 11:50 Urine Culture - Final Urine Escherichia Coli Assessment: 1. Bacteremia. Initial blood cultures with 2/2 bottles positive for group B strep and repeat cultures with no growth to date. Has a pacemaker. She had a TTE showing severe (increased from previous) and no signs of vegetation. Denies back pain, no signs of cellulitis, no other prosthetic material. Afebrile and no leukocytosis. CRP is trending down. Concern for possible infective endocarditis and cardiac device infection. Attempted SUSSY earlier this week and unable to pass probe, repeat SUSSY planned for later today. 2. Possible right lower lobe PNA. Chest xray on admission with chronic pleural changes in the right lung base and left lung clear. ? this is PNA vs fluid overload in the setting of acute on chronic diastolic CHF exacerbation. Initial leukocytosis has resolved, afebrile, no hypoxia. CRP elevated but trending down. 3. History of left breast cancer. S/P left mastectomy with chronic left UE lymphedema. 4. COPD. No sign of COPD exacerbation at this time. 5. Clindamycin, PCN, and Levaquin allergies. Plan: Continue Ceftriaxone, day 10 of ABX. SUSSY pending for later today. Length of ABX treatment will be based on SUSSY findings.
[2019-10-18 09:28] LABS: ABS Basophils 0.1 10^3/ul (0-0.2); ABS Lymphocytes 0.5 10^3/ul (1.0-4.8); ABS Monocytes 0.7 10^3/ul (0-0.8); ABS Neutrophils 5.4 10^3/ul (1.5-7.7); Eosinophil % 0.4 %; Hematocrit 39 % (35-47); Hemoglobin 12.8 g/dL (12.0-16.0); Lymphocyte % 7.7 %; Mean Corpuscular HGB Conc 33 g/dL (31-36); Mean Corpuscular Hemoglobin 30 pg (27-31); Mean Corpuscular Volume 89 fL (80-97); Mean Platelet Volume 7.4 fL (7.4-10.4); Platelet Count 330 10^3/uL (150-450); Red Blood Count 4.33 10^6 /uL (3.70-4.87); Red Cell Distribution Width 16 % (10-15); White Blood Count 6.7 10^3/uL (3.5-10.8)
[2019-10-18 09:37] LABS: Calcium 9.1 mg/dL (8.6-10.3); Potassium 4.1 mmol/L (3.5-5.0)
[2019-10-18 09:43] LABS: BUN/Creatinine Ratio 27.8 (8-20)
[2019-10-18] MEDS: oxyCODONE/Acetamin 5/325 MG* TAB PO PRN ×3 (09:59→22:21)
[2019-10-18] MEDS: Albuterol HFA INHALER* 8 gm MDI INH PRN (10:26)
[2019-10-18] MEDS ORDERED: Midazolam* 1 MG/ML 5 ML VIAL (5 MG) ONE (12:16)
[2019-10-18] MEDS ORDERED: KETAMINE HCL* 50 MG/ML 10 ML VIAL ONE (12:16)
[2019-10-18] MEDS ORDERED: fentaNYL* 50 MCG/ML 2 ML VIAL (100 MCG VIAL) ONE (12:16)
[2019-10-18] MEDS ORDERED: HYDROcodone/ACETAMIN 5-325 MG* 1 TAB PO PRN (12:27)
[2019-10-18] MEDS ORDERED: Naloxone* 0.4 MG/ML 1 ML VIAL IV PRN (12:27)
[2019-10-18] MEDS ORDERED: DiMENhydriNATE IV* 50 MG/ML VIAL IV PUSH PRN (12:27)
[2019-10-18] MEDS ORDERED: oxyCODONE/Acetamin 5/325 MG* TAB PO PRN (12:27)
[2019-10-18] MEDS ORDERED: fentaNYL* 50 MCG/ML 2 ML VIAL (100 MCG VIAL) IV PRN (12:27)
[2019-10-18] MEDS ORDERED: Lidocaine 2% PF * 5 ML VIAL ONE (13:33)
[2019-10-18] MEDS ORDERED: Propofol* 10 MG/ML 20 ML BTL ONE (13:33)
[2019-10-18] MEDS ORDERED: Phenylephrine 40 MCG/ML SYRINGE ONE (13:46)
[2019-10-18] MEDS ORDERED: EPHEDrine (Pressors)* 50 MG/ML VIAL ONE (13:55)
[2019-10-18] MEDS ORDERED: Phenylephrine 10 MG/ML VIAL* 1 ML VIAL ONE (13:59)
--- NOTE | 2019-10-18 15:13 | PRO ---
PROCEDURE REPORT: DATE OF PROCEDURE: 10/18/19 PROCEDURE: EGD. REQUESTING PHYSICIAN: Dr. Milena Rose. REASON FOR PROCEDURE: The patient is here with bacteremia. Concern for endocarditis. Yesterday, a transesophageal echo was attempted and there was resistance with attempt to pass the SUSSY probe. The patient has a history of lymphoma with radiation to her neck and chest. She does not report any significant dysphagia symptoms. She complains of occasional coughing with eating as if "the food goes down the wrong tube." MEDICATIONS GIVEN: By Anesthesia. DESCRIPTION OF PROCEDURE: Full disclosure of risks was reviewed with the patient as detailed on the consent form. The patient was placed in the left lateral decubitus position and monitored with continuous pulse oximetry, capnography, interval blood pressure monitoring, and direct observation. A bite -block was placed between the patient's teeth. An adult gastroscope was then inserted into the patient's mouth and advanced down the esophagus, into the stomach, and into the duodenum. Findings and interventions are described below. FINDINGS: There was resistance noted as the scope was passed under the vallecula. There appeared to be a stricture or web in this area. The scope was able to be maneuvered carefully through this area and into the esophagus. Esophagus was otherwise normal in appearance. The scope was then advanced into a small hiatal hernia and then the intra-abdominal stomach. Stomach was examined in the forward and retroflexed views. There was mild diffuse gastric erythema. Scope was advanced into the duodenum to the mid-duodenum. Duodenal mucosa was normal in appearance. The scope was then withdrawn into the upper esophagus. There again appeared to be a narrowed area in the very proximal esophagus just distal to the vallecula. There was a trace amount of blood in this area likely related to mild trauma from passage of the scope. Scope was then withdrawn from the patient. The patient tolerated the procedure well. IMPRESSION: 1. Complete upper endoscopy to mid-duodenum. 2. 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 I was able to advance the scope through this area with careful maneuvering. 3. Hiatal hernia. 4. Mild diffuse gastric erythema. FOLLOW-UP: 1. Following this procedure, Dr. Rose was able to reposition the patient and carefully pass the SUSSY probe into the esophagus. 2. Consider esophagram while inpatient to further characterize esophagus. Possible that the stricture increases her risk for aspiration. 3. Recommend follow-up in clinic in 1 month or sooner if GI symptoms are more noticeable. Consider non-urgent EGD w/ dilation w/ wire-guided Savary dilator. Would require anticoagulation hold prior to procedure. Thank you very much for this referral. [id number]/[facility] #: [id number] SHRAVAN
--- NOTE | 2019-10-18 15:56 | CONS ---
GASTROENTEROLOGY CONSULT REPORT: DATE OF CONSULT: 10/18/19. CONSULTING PROVIDER: Dr. Rose.* REASON FOR CONSULT: Difficulty passing transesophageal echocardiogram probe. HISTORY OF PRESENT ILLNESS: Ms. Traylor is a 64-year-old woman with COPD, hypothyroidism, breast cancer, aortic stenosis, atrial fibrillation, history of lymphoma, status post radiation, and chronic lymphedema, who is admitted with pneumonia, worsening aortic stenosis, and strep bacteremia. Cardiology is following the patient given concern for endocarditis related to the bacteremia. Transthoracic echocardiogram was without evidence of endocarditis. Plan was for transesophageal echocardiogram. Dr. Fuentes attempted this yesterday. It appears that he encountered some resistance when trying to pass the transesophageal echocardiogram probe. There was also difficulty sedating the patient adequately. Repeat SUSSY scheduled today with anesthesia. GI asked by Dr. Rose to be present and consider performing an endoscopy first to determine if there is a esophageal stricture. Ms. Traylor has a history of lymphoma with radiation therapy to the neck and chest. She reports infrequent difficulty swallowing foods, which she describes as a sensation of food or liquids as "going down the wrong tube." No classic dysphagia symptoms. No prior endoscopies. PAST MEDICAL HISTORY: 1. COPD. 2. Hypothyroidism. 3. Breast cancer. 4. Aortic stenosis. 5. Atrial fibrillation. 6. Right brachial plexopathy. 7. Chronic left upper extremity lymphedema. 8. Hyponatremia. 9. Coronary artery disease. 10. Hodgkin lymphoma. 11. Pulmonary hypertension. PAST SURGICAL HISTORY: 1. Pacemaker. 2. Staging laparotomy with splenectomy and lymph node dissection. 3. Left axillary lymphadenectomy. 4. VATS procedure. 5. Cardiac cath. 6. Dental extractions. 7. Chemo port and removal. 8. Left breast mastectomy. 9. D and C, hysteroscopy, and polypectomy. HOME MEDICATIONS: 1. Levothyroxine 75 mcg daily. 2. Atrovent HFA inhaler 4 times daily as needed. 3. Tikosyn 250 mcg twice daily. 4. Xcbqznu-doxvnyxxt-aiqitjb D3 twice daily. 5. Vitamin C 1000 mg daily. 6. Albuterol HFA inhaler every 6 hours as needed. 7. Zantac 150 mg daily. 8. Fish oil 500 mg daily. 9. Metoprolol 25 mg twice daily. 10. Mag oxide 400 daily. 11. Percocet 5/325 one tablet every 6 hours as needed for pain. 12. Mucinex 600 mg twice daily. 13. Torsemide 10 mg daily. 14. Xarelto 20 mg every evening. ALLERGIES: 1. CLINDAMYCIN causes tachycardia. 2. PENICILLIN G caused anaphylactic shock. 3. SOTALOL. 4. ATENOLOL. 5. LEVOFLOXACIN. 6. CARDIZEM. 7. DRONEDARONE. FAMILY HISTORY: Father with throat cancer. SOCIAL HISTORY: Former smoker. No reported alcohol use. REVIEW OF SYSTEMS: Complete 10-point review of systems negative except as mentioned above. PHYSICAL EXAM: Vital Signs: Afebrile, heart rate in the 80s, blood pressure 127/69, 98% on room air. General: Chronically ill-appearing woman. No acute distress. HEENT: Mucous membranes moist. Cardiovascular: Regular rate and rhythm. Systolic murmur. Pulmonary: Breathing comfortably. Abdomen: Soft, nontender, nondistended. Extremities: Lymphedema in left upper extremity. DIAGNOSTIC STUDIES/LAB DATA: Today's labs reviewed. White count normal at 6.7 , hemoglobin 12.8, platelet count 330. Basic metabolic panel notable for chloride of 96 and carbon dioxide of 39. C-reactive protein 40. Imaging: Chest x-ray on 10/08/19 demonstrated chronic pleural changes in left lung base. IMPRESSION AND RECOMMENDATIONS: Ms. Traylor is a 64-year-old woman with multiple medical comorbidities including cardiopulmonary disease, who is admitted with pneumonia and bacteremia. Gastroenterology consulted given resistance to passage of transesophageal echocardiogram probe yesterday. I discussed the case in detail with Dr. Bajwa from Anesthesia and Dr. Rose from Cardiology. There is some concern that the patient was not able to be sedated adequately yesterday which might have contributed to the difficulty. We will plan for repeat procedure using MAC for sedation. Dr. Rose will attempt transesophageal echocardiogram again. If she encounters resistance with passage of probe, then I will plan for a diagnostic EGD to evaluate further. Thank you very much for this consult. [id number]/[facility] #: [id number] [facility]
[2019-10-18] MEDS: Rivaroxaban TAB(*) 20 MG TAB PO SCH (17:16)
--- NOTE | 2019-10-18 17:31 | TEE ---
*[facility]* [place] [address] Fax #: [phone] Transesophageal Echocardiogram Patient: Kallie Traylor : 1955 Study Date: 10/18/2019 Age: 64 Gender: F HR: 87 bpm Height: 66 in /167.6 cm BSA: 1.93 m^2 Weight: 182.6 lb /83 kg BMI: 29.5 kg/m^2 *[employer] Equipment Tender: * Angela Ramirez *Referring Physician: * Vida Moy *Reading Physician: * Milena Rose MD Indications: Bacteremia. History: Atrial fibrillation. Aortic stenosis. Risk factors: COPD. Conclusions Summary: - Left ventricle: Systolic function is normal. The estimated ejection fraction is 60-65%. - Right ventricle: Pacer wire noted in the right ventricle. Systolic function is low normal. - Left atrium: There is no evidence of a thrombus in the atrial cavity or appendage. - No vegetations seen on pulmonary valve , tricuspid valve or mitral valve . - Mitral valve: The findings are consistent with mild stenosis. There is mild to moderate regurgitation, with multiple jets. - Aortic valve: There is a stalk-like, calcified, fixed vegetation on the aortic aspect, just distal to the right coronary cusp, appears "shelf like" on long axis view. Approximately 1 mm x 3 mm. This appears more c/w sclerotic lesion than a vegetation, but can't rule out entirely. The findings are consistent with moderate to severe stenosis based on 2 echocardiogram and visual estimate. - Tricuspid valve: There is moderate-severe regurgitation. - Pulmonary arteries: Systolic pressure is severely increased, estimated to be 75 mm Hg. - Compared with echocardiogram of 10/12/19, ventricular function is stable. Mitral stenosis stable, mitral regurgitation previously estimated as mild, estmated as severe, calcific lesion on aortic side of the valve newly noted. Pulmonary artery pressure previously estimated at 52 mmHg. Study data: Diagnostic Transesophageal Echocardiogram Consent: The risks and benefits of the procedure, including alternatives were discussed with the patient and/or their health care product support representative and written informed consent was obtained. Procedure: Initial setup: The patient was brought to the laboratory in the fasting state.Intravenous access was obtained. Surface ECG leads, heart rate, heart rhythm, blood pressure measurements, pulse oximetric signals, and mainstream end-tidal CO2 tracings were monitored throughout the procedure. Sedation. General anesthesia was administered by nursing staff. History and physical as well as labs were reviewed. An oral bite block was inserted for protection of oral dentition. The patient was placed in the left lateral decubitus position for endocarditis evaluation. A transesophageal probe was inserted by the attending injection molding machine operator. with some difficultyTransesophageal echocardiography was performed, and all standard views were attempted within the limitations of patient tolerance and safety. Multiple 2D, color flow Doppler and spectral Doppler images were obtained. The transesophageal probe was removed. A bubble study was performed. Location: Operating room. Patient status: Inpatient. Patient room number: 445. Study completion: The patient tolerated the procedure well. There were no complications. Findings Left ventricle: The cavity size is normal. Systolic function is normal. The estimated ejection fraction is 60-65%. Wall motion is normal; there are no regional wall motion abnormalities. There is no evidence of a thrombus. Right ventricle: Calcified chordae near tricuspid valve. Pacer wire noted in the right ventricle. Systolic function is low normal. Ventricular septum: The ventricular septum is normal. Left atrium: The atrium is normal in size. The appendage is of normal size. Emptying velocity is normal. There is no evidence of a thrombus in the atrial cavity or appendage. No spontaneous echo contrast is observed. Right atrium: The atrium is normal in size. Pacer wire noted in right atrium. No evidence of vegitations on the wire. There is no evidence of a thrombus in the atrial cavity or appendage. Atrial septum: No defect or patent foramen ovale is identified. Bubble study was negative Mitral valve: Appears mild to moderately calcified. Mobility is restricted. There is no evidence of a vegetation. The findings are consistent with mild stenosis. There is mild to moderate regurgitation, with multiple jets. Aortic valve: The valve is trileaflet. The leaflets are moderately calcified. Cusp separation is reduced. There is a mass. There is a stalk-like, calcified, fixed vegetation on the aortic aspect, just distal to the right coronary cusp, appears "shelf like" on long axis view. Approximately 1 mm x 3 mm. The findings are consistent with moderate to severe stenosis based on 2 echocardiogram and visual estimate. There is trace regurgitation. Tricuspid valve: Leaflet thickening. Leaflet calcification. Leaflet separation is normal. There is no evidence of a vegetation. There is no evidence of stenosis. There is moderate-severe regurgitation. Pulmonic valve: There is no evidence of a vegetation. There is no evidence of stenosis. There is trace to mild regurgitation. Aorta: The aorta is poorly visualized. Aortic root: The aortic root is moderately calcified. Pericardium: There is no significant pericardial effusion. Pulmonary arteries: Systolic pressure is severely increased, estimated to be 75 mm Hg. Systemic veins: Superior vena cava: The vessel is appears normal. Pulmonary veins: The Pulmonary veins appear normal. Measurements LVOT Value Ref Tricuspid valve Value Ref Diam, S 2.00 cm ---- TR peak v (H) 3.95 m/sec <=2.8 Area 3.1 cm^2 ---- Peak RV-RA grad, S 65 mm Hg ----- Max TR mehnaz 3.95 m/sec ----- Mitral valve Value Ref Peak E 0.71 m/sec ---- Aortic root Value Ref Peak A 0.54 m/sec ---- Root diam 3.2 cm <4.1 Decel time 141 ms ---- Peak grad, D 2.0 mm Hg ---- Ascending aorta Value Ref Peak E/A ratio 1.3 ---- AAo AP diam, S 2.8 cm ----- AAo AP diam/bsa, S 1.5 cm/m^2 ----- Legend: (L) and (H) kirsten values outside specified reference range. Prepared and electronically signed by Milena Rose MD 10/18/2019 17:30
[2019-10-18] MEDS: Ipratropium HFA INHALER(NF) (ALTERNATIVE = NEBS) INH PRN (22:28)
[2019-10-18] MEDS: clonazePAM TAB(*) 1 MG PO PRN (23:52)
[2019-10-19] MEDS: Dofetilide CAP* 250 MCG PO SCH ×2 (06:54→17:55)
[2019-10-19] MEDS: Levothyroxine TAB* 75 MCG TAB PO SCH (07:16)
[2019-10-19] MEDS: cefTRIAXone(*) 2 GM in NS 0.9% 100 ML* 100 ML IVPB SCH (09:34)
[2019-10-19] MEDS: Famotidine TAB* 20 MG PO SCH ×2 (09:38→20:22)
[2019-10-19] MEDS: oxyCODONE/Acetamin 5/325 MG* TAB PO PRN ×2 (09:38→20:13)
[2019-10-19] MEDS: Furosemide IV* 10 MG/ML VIAL (40 MG) IV SCH (09:39)
[2019-10-19] MEDS: Nystatin TOP POWDER* 15 GM BTL TOPICAL SCH ×2 (09:39→20:22)
[2019-10-19] MEDS: Polyethylene Glycol 3350* 17 GM PACKET PO SCH (09:39)
[2019-10-19] MEDS: Metoprolol Tartrate TAB* 25 MG PO SCH ×2 (09:39→20:14)
--- NOTE | 2019-10-19 15:52 | PN ---
Subjective Date of Service: 10/19/19 Interval History: Angry today that she cannot walk without being observed SOB same as yesterday not baseline, SOB when walking to bathroom No cough Objective Active Medications: Acetaminophen (Tylenol Tab*) 650 mg PO ONCE PRN PRN Reason: PAIN - MILD Albuterol (Ventolin Hfa Inhaler*) 2 puff INH Q6H PRN PRN Reason: SOB/WHEEZING Last Admin: 10/18/19 10:26 Dose: 2 puff Clonazepam (Klonopin Tab(*)) 1 mg PO BEDTIME PRN PRN Reason: ANXIETY Last Admin: 10/18/19 23:52 Dose: 1 mg Dimenhydrinate (Dramamine Iv*) 12.5 mg IV PUSH ONCE PRN PRN Reason: NAUSEA/VOMITING Dofetilide (Tikosyn Cap*) 250 mcg PO Q12H [facility] Last Admin: 10/19/19 06:54 Dose: Not Given Famotidine (Pepcid Tab*) 20 mg PO BID [facility] Last Admin: 10/19/19 09:38 Dose: 20 mg Furosemide (Lasix Iv*) 40 mg IV DAILY [facility] Last Admin: 10/19/19 09:39 Dose: Not Given Guaifenesin/Dextromethorphan (Robitussin Dm 100 Mg/10 Mg In 5 Ml) 10 ml PO Q4H PRN PRN Reason: COUGH Last Admin: 10/09/19 13:16 Dose: 10 ml Ceftriaxone Sodium 2 gm/ (Sodium Chloride) 100 mls @ 200 mls/hr IVPB DAILY [facility] Last Admin: 10/19/19 09:34 Dose: 200 mls/hr Lactated Ringer's (Lactated Ringers 1000 Ml Bag*) 1,000 mls @ 50 mls/hr IV PER RATE [facility] Ipratropium [place] (Atrovent Hfa Inhaler(Nf)) 2 puff INH Q6H PRN PRN Reason: SOB/WHEEZING Last Admin: 10/18/19 22:28 Dose: 2 puff Levalbuterol HCl (Xopenex 0.63mg/3ml Neb*) 0.63 mg INH ONCE PRN PRN Reason: SOB/WHEEZING Levothyroxine Sodium (Synthroid Tab*) 75 mcg PO DAILY@0600 [facility] Last Admin: 10/19/19 07:16 Dose: 75 mcg Magnesium Hydroxide (Milk Of Magnesia Liq*) 30 ml PO Q6H PRN PRN Reason: CONSTIPATION Last Admin: 10/12/19 22:00 Dose: 30 ml Metoprolol Tartrate (Lopressor Tab*) 25 mg PO BID [facility] Last Admin: 10/19/19 09:39 Dose: Not Given Naloxone HCl (Narcan*) 0.08 mg IV Q2M PRN PRN Reason: severe induced resp depression Nystatin (Nystatin Top Powder*) 1 applic TOPICAL BID [facility] Last Admin: 10/19/19 09:39 Dose: 1 applic Oxycodone/Acetaminophen (Percocet 5/325 Tab*) 1 tab PO Q4H PRN PRN Reason: PAIN - MODERATE Last Admin: 10/19/19 09:38 Dose: 1 tab Polyethylene Glycol/Electrolytes (Miralax (17 Gm Dose Nii)) 17 gm PO DAILY [facility] Last Admin: 10/19/19 09:39 Dose: Not Given Rivaroxaban (Xarelto(*)) 20 mg PO DAILY@1700 [facility] Last Admin: 10/18/19 17:16 Dose: 20 mg Throat Lozenges (Chloraseptic Soila*) 1 soila PO Q2H PRN PRN Reason: THROAT DISCOMFORT Vital Signs - 8 hr 10/19/19 10/19/19 09:38 11:38 Respiratory 18 16 Rate Oxygen Devices in Use Now: Nasal Cannula Appearance: sitting in chair, interactive, NAD Eyes: No Scleral Icterus, PERRLA Ears/Nose/Mouth/Throat: NL Teeth, Lips, Gums, Clear Oropharnyx Neck: NL Appearance and Movements; NL JVP, Trachea Midline Respiratory: Symmetrical Chest Expansion and Respiratory Effort, Clear to Auscultation, - - clear b/l Cardiovascular: RRR Abdominal: NL Sounds; No Tenderness; No Distention, No Hepatosplenomegaly Lymphatic: No Cervical Adenopathy Extremities: - - 2+ LE edema b/l Neurological: Alert and Oriented x 3 Result Diagrams: 10/18/19 09:20 10/18/19 09:20 Microbiology and Other Data: Microbiology 10/09/19 08:42 Aerobic Blood Culture - Preliminary Blood Venous No Growth Day 2 Anaerobic Blood Culture - Preliminary No Growth Day 2 10/08/19 10:00 Aerobic Blood Culture - Final Blood Venous Strep Agalactiae - (Group B) Anaerobic Blood Culture - Final Strep Agalactiae - (Group B) 10/08/19 11:50 Urine Culture - Final Urine Escherichia Coli Assess/Plan/Problems-Billing 64 yo F with a h/o COPD, hypothyroidism, afib and aortic stenosis who presented to the ER with c/o SOB was found to have pneumonia vs. pulmonary edema , worsening , and strep bacteremia with mass on aortic valve. - Patient Problems (1) Bacteremia due to group B Streptococcus Comment: 10/07 blood cultures positive; / blood cultures negative for GBS Continue ceftriaxone. SUSSY with mass on aortic valve, unclear if sclerotic but will have to treat as if IE Follow with ID for duration of abx (2) Infective endocarditis Comment: ID consult for duration of abx Place PICC discussed with care management (3) CHF (congestive heart failure) Current Visit: Yes Status: Acute Code(s): I50.9 - HEART FAILURE, UNSPECIFIED SNOMED Code(s): 72912651 Comment: Likely related to worsening Diuresing better on IV lasix -> lower BP this AM. Switch to PO tomorrow if BP remains low (4) Hyponatremia Comment: Likely secondary to SIADH. Na level is stable despite resuming diuresis. (5) RLL pneumonia Comment: Pt with possible RLL pneumonia though not completely clear. Radiation scarring on previous imaging She continues on ceftriaxone given group B strep bacteremia. (6) Acute respiratory failure with hypoxia Comment: Resolved Likely relatd to pneumonia and CHF No home o2 requirement (7) QT prolongation Comment: avoid addition of qt-prolonging medications LBBB also, so tikosyn still acceptable, confirmed with cardiology (8) History of Hodgkin's lymphoma Comment: With chronic R loculated pleural effusion, residual R hand neuropathy and left arm lymphedema as a complication of treatment. Status and Disposition: Will need salvage determiner abx
[2019-10-19] MEDS: Rivaroxaban TAB(*) 20 MG TAB PO SCH (17:39)
[2019-10-19] MEDS: Ipratropium HFA INHALER(NF) (ALTERNATIVE = NEBS) INH PRN (20:37)
[2019-10-19] MEDS: clonazePAM TAB(*) 1 MG PO PRN (23:28)
[2019-10-20] MEDS: Levothyroxine TAB* 75 MCG TAB PO SCH (05:32)
[2019-10-20] MEDS: Furosemide IV* 10 MG/ML VIAL (40 MG) IV SCH (08:06)
[2019-10-20] MEDS: Famotidine TAB* 20 MG PO SCH ×2 (08:06→20:43)
[2019-10-20] MEDS: Metoprolol Tartrate TAB* 25 MG PO SCH ×2 (08:06→20:42)
[2019-10-20] MEDS: oxyCODONE/Acetamin 5/325 MG* TAB PO PRN ×3 (08:06→20:36)
[2019-10-20] MEDS: Polyethylene Glycol 3350* 17 GM PACKET PO SCH (08:07)
[2019-10-20] MEDS: Nystatin TOP POWDER* 15 GM BTL TOPICAL SCH ×2 (08:07→20:39)
[2019-10-20] MEDS: cefTRIAXone(*) 2 GM in NS 0.9% 100 ML* 100 ML IVPB SCH (08:12)
[2019-10-20] MEDS: Ipratropium HFA INHALER(NF) (ALTERNATIVE = NEBS) INH PRN (09:18)
[2019-10-20] MEDS: Dofetilide CAP* 250 MCG PO SCH ×2 (11:05→20:37)
--- NOTE | 2019-10-20 11:46 | PN ---
Progress Note - Progress Note Date of Service: 10/20/19 SOAP: Subjective: C: Group B strep bacteremia HPI: Ms. Traylor is a 64 yo female with PMH significant for COPD, hypothryroidism, left breast cancer s/p mastectomy, , A fib, right brachial plexopathy, chronic left UE lymphedema, D CHF, hyponatremia, hodgkin's lumphoma, and pulmonary HTN; who presented to the emergency room with complaints of SOB and was found to have group B strep bacteremia. Denies fever, chills, cough, joint/ back pain, nausea, vomiting, diarrhea, or urinary symptoms. Reports mild shortness of breath with exertion. Edema in UEs has "resolved" and is at her reported baseline. Objective: Vital Signs 10/20/19 08:00 Temperature 97.6 F Temperature Oral Source Pulse Rate 87 Respiratory 20 Rate Blood Pressure 121/62 (mmHg) O2 Sat by Pulse 97 Oximetry Patient on Room No Air Physical Exam: General: NAD, sitting up in a chair HEENT: Moist MM Cardiovascular: Heart rate regular, systolic murmur heard best at the left upper sternal border Respiratory: Lung sounds clear, diminished in bases Abdominal: Bowel sounds present; ABD soft, non tender, non distended MSK: Left UE edema Skin: No rash on exposed skin Laboratory Tests 10/18/19 10/18/19 10/18/19 07:07 09:20 09:20 WBC 6.7 Hgb 12.8 Hct 39 Plt Count 330 Sodium 139 Potassium 4.1 Chloride 96 L Carbon Dioxide 39 H BUN 15 Creatinine 0.54 Glucose 106 H C-Reactive Protein 40.00 H Microbiology 10/09/19 08:42 Aerobic Blood Culture - Final Blood Venous No Growth Day 5 Anaerobic Blood Culture - Final No Growth Day 5 10/08/19 10:00 Aerobic Blood Culture - Final Blood Venous Strep Agalactiae - (Group B) Anaerobic Blood Culture - Final Strep Agalactiae - (Group B) 10/08/19 11:50 Urine Culture - Final Urine Escherichia Coli Assessment: 1. Bacteremia, group B strep. Initial blood cultures with 2/2 bottles positive for group B strep and repeat cultures with no growth to date. Has a pacemaker. She had a TTE showing severe (increased from previous) and no signs of vegetation. Denies back pain, no signs of cellulitis, no other prosthetic material. Afebrile and no leukocytosis. CRP is trending down. SUSSY with right ventricle pacer wire; no thrombus in atrial cavity or appendage; no vegetations seen on PV, TV, or MV; AV with stalk like calcified fixed vegetation on the aortic aspect; moderate to severe . Concern for infective endocarditis and no signs of cardiac device infection. 2. Possible right lower lobe PNA. Chest xray on admission with chronic pleural changes in the right lung base and left lung clear. ? this is PNA vs fluid overload in the setting of acute on chronic diastolic CHF exacerbation. Initial leukocytosis has resolved, afebrile, no hypoxia. CRP elevated but trending down. 3. History of left breast cancer. S/P left mastectomy with chronic left UE lymphedema. 4. COPD. No sign of COPD exacerbation at this time. 5. Clindamycin, PCN, and Levaquin allergies. Plan: Continue Ceftriaxone, day 12/42 of ABX. Will need to have a PICC line placed. Consider cardiology consult. Weekly labs while on IV ABX: CBC, CMP, CRP. Followup with ID outpatient. She will need to have a repeat echo near the end of the ABX course. Recommendations discussed with Dr. Jeana Pedraza. 25 minutes floor time: > 50 % spent with the patient discussing recommendation for long course of IV ABX and followup.
--- NOTE | 2019-10-20 15:15 | PN ---
Subjective Date of Service: 10/20/19 Interval History: Feels much better today, no SOB walking to bathroom Denies any CP No other complaints Objective Active Medications: Acetaminophen (Tylenol Tab*) 650 mg PO ONCE PRN PRN Reason: PAIN - MILD Albuterol (Ventolin Hfa Inhaler*) 2 puff INH Q6H PRN PRN Reason: SOB/WHEEZING Last Admin: 10/18/19 10:26 Dose: 2 puff Clonazepam (Klonopin Tab(*)) 1 mg PO BEDTIME PRN PRN Reason: ANXIETY Last Admin: 10/19/19 23:28 Dose: 1 mg Dimenhydrinate (Dramamine Iv*) 12.5 mg IV PUSH ONCE PRN PRN Reason: NAUSEA/VOMITING Dofetilide (Tikosyn Cap*) 250 mcg PO Q12H [facility] Last Admin: 10/20/19 11:05 Dose: 250 mcg Famotidine (Pepcid Tab*) 20 mg PO BID [facility] Last Admin: 10/20/19 08:06 Dose: 20 mg Furosemide (Lasix Iv*) 40 mg IV DAILY [facility] Last Admin: 10/20/19 08:06 Dose: 40 mg Guaifenesin/Dextromethorphan (Robitussin Dm 100 Mg/10 Mg In 5 Ml) 10 ml PO Q4H PRN PRN Reason: COUGH Last Admin: 10/09/19 13:16 Dose: 10 ml Ceftriaxone Sodium 2 gm/ (Sodium Chloride) 100 mls @ 200 mls/hr IVPB DAILY [facility] Last Admin: 10/20/19 08:12 Dose: 200 mls/hr Ipratropium [place] (Atrovent Hfa Inhaler(Nf)) 2 puff INH Q6H PRN PRN Reason: SOB/WHEEZING Last Admin: 10/20/19 09:18 Dose: 2 puff Levalbuterol HCl (Xopenex 0.63mg/3ml Neb*) 0.63 mg INH ONCE PRN PRN Reason: SOB/WHEEZING Levothyroxine Sodium (Synthroid Tab*) 75 mcg PO DAILY@0600 [facility] Last Admin: 10/20/19 05:32 Dose: 75 mcg Magnesium Hydroxide (Milk Of Magnesia Liq*) 30 ml PO Q6H PRN PRN Reason: CONSTIPATION Last Admin: 10/12/19 22:00 Dose: 30 ml Metoprolol Tartrate (Lopressor Tab*) 25 mg PO BID [facility] Last Admin: 10/20/19 08:06 Dose: 25 mg Naloxone HCl (Narcan*) 0.08 mg IV Q2M PRN PRN Reason: severe induced resp depression Nystatin (Nystatin Top Powder*) 1 applic TOPICAL BID [facility] Last Admin: 10/20/19 08:07 Dose: 1 applic Oxycodone/Acetaminophen (Percocet 5/325 Tab*) 1 tab PO Q4H PRN PRN Reason: PAIN - MODERATE Last Admin: 10/20/19 14:54 Dose: 1 tab Polyethylene Glycol/Electrolytes (Miralax (17 Gm Dose Nii)) 17 gm PO DAILY [facility] Last Admin: 10/20/19 08:07 Dose: Not Given Rivaroxaban (Xarelto(*)) 20 mg PO DAILY@1700 [facility] Last Admin: 10/19/19 17:39 Dose: 20 mg Throat Lozenges (Chloraseptic Soila*) 1 soila PO Q2H PRN PRN Reason: THROAT DISCOMFORT Vital Signs - 8 hr 10/20/19 10/20/19 10/20/19 08:00 08:06 09:00 Temperature 97.6 F Pulse Rate 87 87 Respiratory 20 18 Rate Blood Pressure 121/62 (mmHg) O2 Sat by Pulse 97 Oximetry 10/20/19 10/20/19 10/20/19 09:45 12:00 14:54 Temperature 98.3 F Pulse Rate 77 Respiratory 18 16 18 Rate Blood Pressure 109/52 (mmHg) O2 Sat by Pulse 100 Oximetry Oxygen Devices in Use Now: Nasal Cannula Appearance: sitting in chair, NAD Eyes: No Scleral Icterus Ears/Nose/Mouth/Throat: NL Teeth, Lips, Gums, Clear Oropharnyx Neck: NL Appearance and Movements; NL JVP, Trachea Midline Respiratory: Symmetrical Chest Expansion and Respiratory Effort, Clear to Auscultation, - - clear Cardiovascular: RRR, - - 2/6 ROSALBA Abdominal: NL Sounds; No Tenderness; No Distention, No Hepatosplenomegaly Extremities: - - edematous in b/l hand/arms and legs 2+ Skin: No Rash or Ulcers Neurological: Alert and Oriented x 3 Result Diagrams: 10/18/19 09:20 10/18/19 09:20 Microbiology and Other Data: Microbiology 10/09/19 08:42 Aerobic Blood Culture - Preliminary Blood Venous No Growth Day 2 Anaerobic Blood Culture - Preliminary No Growth Day 2 10/08/19 10:00 Aerobic Blood Culture - Final Blood Venous Strep Agalactiae - (Group B) Anaerobic Blood Culture - Final Strep Agalactiae - (Group B) 10/08/19 11:50 Urine Culture - Final Urine Escherichia Coli Assess/Plan/Problems-Billing 64 yo F with a h/o COPD, hypothyroidism, afib and aortic stenosis who presented to the ER with c/o SOB was found to have pneumonia vs. pulmonary edema , worsening , and strep bacteremia with mass on aortic valve. - Patient Problems (1) Bacteremia due to group B Streptococcus Comment: 10/07 blood cultures positive; 10/08 blood cultures negative for GBS Continue ceftriaxone for today 6 weeks given vegetation seen on AV 10/16 SUSSY with veg on aortic valve, unclear if sclerotic but will have to treat as if IE x 6 wks PICC placement Arrange o/p abx - likely infusion center. Repeat TTE 2/p 5 weeks abx to follow vegetation (2) Infective endocarditis Comment: See above - 6 wks abx and repeat TTE Place PICC discussed with care management (3) CHF (congestive heart failure) Current Visit: Yes Status: Acute Code(s): I50.9 - HEART FAILURE, UNSPECIFIED SNOMED Code(s): 66976190 Comment: Likely related to worsening Improving SOB on IV lasix - continue w/same regimen Repeat BMP in AM (4) Hyponatremia Comment: Likely secondary to SIADH. Na level is stable despite resuming diuresis. (5) RLL pneumonia Comment: Pt with possible RLL pneumonia though not completely clear. Radiation scarring on previous imaging as well confounding this dx CTX in setting of suspected infective endocarditis (6) Acute respiratory failure with hypoxia Comment: Resolved Likely related to pneumonia and CHF No home o2 requirement (7) QT prolongation Comment: avoid addition of qt-prolonging medications LBBB also, so tikosyn still acceptable, confirmed with cardiology (8) History of Hodgkin's lymphoma Comment: With chronic R loculated pleural effusion, residual R hand neuropathy and left arm lymphedema as a complication of treatment. 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
[2019-10-20] MEDS: Rivaroxaban TAB(*) 20 MG TAB PO SCH (16:07)
[2019-10-20] MEDS: clonazePAM TAB(*) 1 MG PO PRN (23:40)
[2019-10-21] MEDS: Levothyroxine TAB* 75 MCG TAB PO SCH (05:12)
[2019-10-21 05:56] LABS: BUN/Creatinine Ratio 27.6 (8-20); Potassium 3.9 mmol/L (3.5-5.0)
[2019-10-21] MEDS: Polyethylene Glycol 3350* 17 GM PACKET PO SCH (07:42)
[2019-10-21] MEDS: Furosemide IV* 10 MG/ML VIAL (40 MG) IV SCH (07:45)
[2019-10-21] MEDS: Famotidine TAB* 20 MG PO SCH ×2 (07:45→20:24)
[2019-10-21] MEDS: Dofetilide CAP* 250 MCG PO SCH ×2 (07:45→20:23)
[2019-10-21] MEDS: Metoprolol Tartrate TAB* 25 MG PO SCH ×2 (07:45→20:23)
[2019-10-21] MEDS: cefTRIAXone(*) 2 GM in NS 0.9% 100 ML* 100 ML IVPB SCH (07:46)
[2019-10-21] MEDS: Ipratropium HFA INHALER(NF) (ALTERNATIVE = NEBS) INH PRN ×2 (07:46→20:28)
[2019-10-21] MEDS: Nystatin TOP POWDER* 15 GM BTL TOPICAL SCH ×2 (07:50→20:24)
[2019-10-21] MEDS: oxyCODONE/Acetamin 5/325 MG* TAB PO PRN ×2 (14:00→20:23)
--- NOTE | 2019-10-21 14:20 | PN ---
Subjective Date of Service: 10/21/19 Interval History: walked around unit 4x yesterday with minimal SOB Denies CP Feels swelling in hands and legs are improving - notes "I have knuckles again." Objective Active Medications: Acetaminophen (Tylenol Tab*) 650 mg PO ONCE PRN PRN Reason: PAIN - MILD Albuterol (Ventolin Hfa Inhaler*) 2 puff INH Q6H PRN PRN Reason: SOB/WHEEZING Last Admin: 10/18/19 10:26 Dose: 2 puff Clonazepam (Klonopin Tab(*)) 1 mg PO BEDTIME PRN PRN Reason: ANXIETY Last Admin: 10/20/19 23:40 Dose: 1 mg Dimenhydrinate (Dramamine Iv*) 12.5 mg IV PUSH ONCE PRN PRN Reason: NAUSEA/VOMITING Dofetilide (Tikosyn Cap*) 250 mcg PO Q12H [facility] Last Admin: 10/21/19 07:45 Dose: 250 mcg Famotidine (Pepcid Tab*) 20 mg PO BID [facility] Last Admin: 10/21/19 07:45 Dose: 20 mg Furosemide (Lasix Iv*) 40 mg IV DAILY [facility] Last Admin: 10/21/19 07:45 Dose: 40 mg Guaifenesin/Dextromethorphan (Robitussin Dm 100 Mg/10 Mg In 5 Ml) 10 ml PO Q4H PRN PRN Reason: COUGH Last Admin: 10/09/19 13:16 Dose: 10 ml Ceftriaxone Sodium 2 gm/ (Sodium Chloride) 100 mls @ 200 mls/hr IVPB DAILY [facility] Last Admin: 10/21/19 07:46 Dose: 200 mls/hr Ipratropium [place] (Atrovent Hfa Inhaler(Nf)) 2 puff INH Q6H PRN PRN Reason: SOB/WHEEZING Last Admin: 10/21/19 07:46 Dose: 2 puff Levalbuterol HCl (Xopenex 0.63mg/3ml Neb*) 0.63 mg INH ONCE PRN PRN Reason: SOB/WHEEZING Levothyroxine Sodium (Synthroid Tab*) 75 mcg PO DAILY@0600 [facility] Last Admin: 10/21/19 05:12 Dose: 75 mcg Magnesium Hydroxide (Milk Of Magnesia Liq*) 30 ml PO Q6H PRN PRN Reason: CONSTIPATION Last Admin: 10/12/19 22:00 Dose: 30 ml Metoprolol Tartrate (Lopressor Tab*) 25 mg PO BID [facility] Last Admin: 10/21/19 07:45 Dose: 25 mg Naloxone HCl (Narcan*) 0.08 mg IV Q2M PRN PRN Reason: severe induced resp depression Nystatin (Nystatin Top Powder*) 1 applic TOPICAL BID [facility] Last Admin: 10/21/19 07:50 Dose: 1 applic Oxycodone/Acetaminophen (Percocet 5/325 Tab*) 1 tab PO Q4H PRN PRN Reason: PAIN - MODERATE Last Admin: 10/21/19 14:00 Dose: 1 tab Polyethylene Glycol/Electrolytes (Miralax (17 Gm Dose Nii)) 17 gm PO DAILY [facility] Last Admin: 10/21/19 07:42 Dose: Not Given Rivaroxaban (Xarelto(*)) 20 mg PO DAILY@1700 [facility] Last Admin: 10/20/19 16:07 Dose: 20 mg Throat Lozenges (Chloraseptic Soila*) 1 soila PO Q2H PRN PRN Reason: THROAT DISCOMFORT Vital Signs - 8 hr 10/21/19 10/21/19 10/21/19 07:15 07:51 08:05 Temperature 97.4 F Pulse Rate 83 86 Respiratory 17 17 Rate Blood Pressure 110/65 (mmHg) O2 Sat by Pulse 98 Oximetry 10/21/19 10/21/19 11:15 14:00 Temperature 98.1 F Pulse Rate 73 Respiratory 16 18 Rate Blood Pressure 96/52 (mmHg) O2 Sat by Pulse 94 Oximetry Oxygen Devices in Use Now: Nasal Cannula Appearance: sitting in chair, well appearing Eyes: No Scleral Icterus, PERRLA Ears/Nose/Mouth/Throat: NL Teeth, Lips, Gums, Clear Oropharnyx Neck: NL Appearance and Movements; NL JVP, Trachea Midline Respiratory: Symmetrical Chest Expansion and Respiratory Effort, Clear to Auscultation Cardiovascular: RRR, - - 2/6 ROSALBA Abdominal: NL Sounds; No Tenderness; No Distention, No Hepatosplenomegaly Lymphatic: No Cervical Adenopathy Extremities: - - 1-2+ edema legs and arms/hands improving Neurological: Alert and Oriented x 3 Result Diagrams: 10/18/19 09:20 10/21/19 05:19 Microbiology and Other Data: Microbiology 10/09/19 08:42 Aerobic Blood Culture - Preliminary Blood Venous No Growth Day 2 Anaerobic Blood Culture - Preliminary No Growth Day 2 10/08/19 10:00 Aerobic Blood Culture - Final Blood Venous Strep Agalactiae - (Group B) Anaerobic Blood Culture - Final Strep Agalactiae - (Group B) 10/08/19 11:50 Urine Culture - Final Urine Escherichia Coli Assess/Plan/Problems-Billing 64 yo F with a h/o COPD, hypothyroidism, afib and aortic stenosis who presented to the ER with c/o SOB was found to have pneumonia vs. pulmonary edema , worsening , and strep bacteremia found with vegetation on aortic valve. - Patient Problems (1) Bacteremia due to group B Streptococcus Comment: 10/07 blood cultures positive; 10/08 blood cultures negative for GBS Continue ceftriaxone - 6 weeks total given vegetation seen on AV 10/16 SUSSY with veg on aortic valve, unclear if sclerotic but will have to treat as if IE x 6 wks PICC placement Arrange o/p abx - Pt would like home but insurance may not cover in which case she will receive at the infusion center. Repeat TTE s/p 5 weeks abx to follow vegetation Abx day (2) Infective endocarditis Comment: See above - 6 wks abx and repeat TTE Place PICC discussed with care management Abx day (3) CHF (congestive heart failure) Current Visit: Yes Status: Acute Code(s): I50.9 - HEART FAILURE, UNSPECIFIED SNOMED Code(s): 56085928 Comment: Likely related to worsening Improving SOB on IV lasix -continues to improve- continue w/same regimen (4) Hyponatremia Comment: Likely secondary to SIADH. Na level is stable despite resuming diuresis. (5) RLL pneumonia Comment: Pt with possible RLL pneumonia though not completely clear. Radiation scarring on previous imaging as well confounding this dx CTX in setting of suspected infective endocarditis (6) Acute respiratory failure with hypoxia Comment: Resolved Likely related to pneumonia and CHF No home o2 requirement (7) QT prolongation Comment: avoid addition of qt-prolonging medications LBBB also, so tikosyn still acceptable, confirmed with cardiology (8) History of Hodgkin's lymphoma Comment: With chronic R loculated pleural effusion, residual R hand neuropathy and left arm lymphedema as a complication of treatment. 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 PICC placement pending and set up of o/p abx pending
[2019-10-21] MEDS: Rivaroxaban TAB(*) 20 MG TAB PO SCH (16:25)
[2019-10-21] MEDS: clonazePAM TAB(*) 1 MG PO PRN (23:30)
[2019-10-22] MEDS: Levothyroxine TAB* 75 MCG TAB PO SCH (05:25)
[2019-10-22] MEDS: Famotidine TAB* 20 MG PO SCH ×2 (08:53→20:01)
[2019-10-22] MEDS: cefTRIAXone(*) 2 GM in NS 0.9% 100 ML* 100 ML IVPB SCH (08:53)
[2019-10-22] MEDS: oxyCODONE/Acetamin 5/325 MG* TAB PO PRN ×3 (08:53→20:10)
[2019-10-22] MEDS: Dofetilide CAP* 250 MCG PO SCH ×2 (08:53→20:01)
[2019-10-22] MEDS: Furosemide IV* 10 MG/ML VIAL (40 MG) IV SCH (08:53)
[2019-10-22] MEDS: Polyethylene Glycol 3350* 17 GM PACKET PO SCH (08:53)
[2019-10-22] MEDS: Metoprolol Tartrate TAB* 25 MG PO SCH ×2 (08:53→20:01)
[2019-10-22] MEDS: Nystatin TOP POWDER* 15 GM BTL TOPICAL SCH ×2 (08:54→20:02)
[2019-10-22] MEDS: Ipratropium HFA INHALER(NF) (ALTERNATIVE = NEBS) INH PRN ×2 (09:01→21:43)
--- NOTE | 2019-10-22 09:19 | PN ---
Subjective Date of Service: 10/22/19 Interval History: Continues to walk around unit. 4x yesterday without SOB Feels right hand is more swollen than usual. While there is usually some swelling in the fingers the hand is usually not swollen Weight - up and down -> I am not confident these are reliable Objective Active Medications: Albuterol (Ventolin Hfa Inhaler*) 2 puff INH Q6H PRN PRN Reason: SOB/WHEEZING Last Admin: 10/18/19 10:26 Dose: 2 puff Clonazepam (Klonopin Tab(*)) 1 mg PO BEDTIME PRN PRN Reason: ANXIETY Last Admin: 10/21/19 23:30 Dose: 1 mg Dofetilide (Tikosyn Cap*) 250 mcg PO Q12H [facility] Last Admin: 10/22/19 08:53 Dose: 250 mcg Famotidine (Pepcid Tab*) 20 mg PO BID [facility] Last Admin: 10/22/19 08:53 Dose: 20 mg Furosemide (Lasix Iv*) 40 mg IV DAILY [facility] Last Admin: 10/22/19 08:53 Dose: 40 mg Guaifenesin/Dextromethorphan (Robitussin Dm 100 Mg/10 Mg In 5 Ml) 10 ml PO Q4H PRN PRN Reason: COUGH Last Admin: 10/09/19 13:16 Dose: 10 ml Ceftriaxone Sodium 2 gm/ (Sodium Chloride) 100 mls @ 200 mls/hr IVPB DAILY [facility] Last Admin: 10/22/19 08:53 Dose: 200 mls/hr Ipratropium [place] (Atrovent Hfa Inhaler(Nf)) 2 puff INH Q6H PRN PRN Reason: SOB/WHEEZING Last Admin: 10/22/19 09:01 Dose: 2 puff Levothyroxine Sodium (Synthroid Tab*) 75 mcg PO DAILY@0600 [facility] Last Admin: 10/22/19 05:25 Dose: 75 mcg Magnesium Hydroxide (Milk Of Magnesia Liq*) 30 ml PO Q6H PRN PRN Reason: CONSTIPATION Last Admin: 10/12/19 22:00 Dose: 30 ml Metoprolol Tartrate (Lopressor Tab*) 25 mg PO BID [facility] Last Admin: 10/22/19 08:53 Dose: 25 mg Nystatin (Nystatin Top Powder*) 1 applic TOPICAL BID [facility] Last Admin: 10/22/19 08:54 Dose: 1 applic Oxycodone/Acetaminophen (Percocet 5/325 Tab*) 1 tab PO Q4H PRN PRN Reason: PAIN - MODERATE Last Admin: 10/22/19 08:53 Dose: 1 tab Polyethylene Glycol/Electrolytes (Miralax (17 Gm Dose Nii)) 17 gm PO DAILY [facility] Last Admin: 10/22/19 08:53 Dose: Not Given Rivaroxaban (Xarelto(*)) 20 mg PO DAILY@1700 [facility] Last Admin: 10/21/19 16:25 Dose: 20 mg Throat Lozenges (Chloraseptic Soila*) 1 soila PO Q2H PRN PRN Reason: THROAT DISCOMFORT Vital Signs - 8 hr 10/22/19 10/22/19 10/22/19 01:40 03:15 05:21 Temperature 97.6 F Pulse Rate 73 80 Respiratory 16 16 20 Rate Blood Pressure 103/51 (mmHg) O2 Sat by Pulse 100 94 Oximetry 10/22/19 10/22/19 08:00 08:53 Temperature 98.5 F Pulse Rate 87 Respiratory 18 18 Rate Blood Pressure 124/67 (mmHg) O2 Sat by Pulse 92 Oximetry Oxygen Devices in Use Now: None Appearance: sitting in chair, well appearing Eyes: No Scleral Icterus, PERRLA Ears/Nose/Mouth/Throat: NL Teeth, Lips, Gums, Clear Oropharnyx Neck: NL Appearance and Movements; NL JVP, Trachea Midline Respiratory: Symmetrical Chest Expansion and Respiratory Effort, - - early inspiratory wheeze/squeek Cardiovascular: RRR Abdominal: NL Sounds; No Tenderness; No Distention, No Hepatosplenomegaly Extremities: - - tense swelling in right hand a/w smooth and skin, 1+ swelling right arm and leg Neurological: Alert and Oriented x 3 Result Diagrams: 10/18/19 09:20 10/21/19 05:19 Microbiology and Other Data: Microbiology 10/09/19 08:42 Aerobic Blood Culture - Preliminary Blood Venous No Growth Day 2 Anaerobic Blood Culture - Preliminary No Growth Day 2 10/08/19 10:00 Aerobic Blood Culture - Final Blood Venous Strep Agalactiae - (Group B) Anaerobic Blood Culture - Final Strep Agalactiae - (Group B) 10/08/19 11:50 Urine Culture - Final Urine Escherichia Coli Assess/Plan/Problems-Billing 64 yo F with a h/o COPD, hypothyroidism, afib and aortic stenosis who presented to the ER with c/o SOB was found to have pneumonia vs. pulmonary edema , worsening , and strep bacteremia found with vegetation on aortic valve. - Patient Problems (1) Bacteremia due to group B Streptococcus Comment: 10/07 blood cultures positive GBS and cleared on 10/08 Continue ceftriaxone - 6 weeks total given vegetation seen on AV Veg on aortic valve-> unclear if sclerotic but will have to treat as if IE x 6 wks. looks less severe on SUSSY compared to TTE PICC placement pending Arrange o/p abx - Pt would like home infusion but insurance may not cover in which case she will receive at the infusion center. Repeat TTE s/p 5-6 weeks abx to follow vegetation size/resolution Abx day (2) Infective endocarditis Comment: See above - 6 wks abx and repeat TTE Not clear it is infective but unable to rule out may need further evaluation in setting of worsening CHF and vegetation -> however unclear if PNA or CHF (and bacteremia) was really driving her SOB and presentation Place PICC discussed with care management Abx day (3) CHF (congestive heart failure) Current Visit: Yes Status: Acute Code(s): I50.9 - HEART FAILURE, UNSPECIFIED SNOMED Code(s): 33577321 Comment: Likely related to worsening and infection (GBS bacteremia) Unclear contribution from AV veg Improving SOB on IV lasix -continues to improve- continue w/same regimen (4) Hyponatremia Comment: Likely secondary to SIADH. Na level is stable despite resuming diuresis. (5) RLL pneumonia Comment: Pt with possible RLL pneumonia though not completely clear. Radiation scarring on previous imaging confounding this dx CTX in setting of suspected infective endocarditis (6) Acute respiratory failure with hypoxia Comment: Resolved Likely related to pneumonia and CHF No home o2 requirement (7) QT prolongation Comment: avoid addition of qt-prolonging medications LBBB also, so tikosyn still acceptable, confirmed with cardiology (8) History of Hodgkin's lymphoma Comment: With chronic R loculated pleural effusion, residual R hand neuropathy and left arm lymphedema as a complication of treatment. Status and Disposition: Will need shelter abx. PICC placement pending and set up of o/p abx pending
[2019-10-22] MEDS: Rivaroxaban TAB(*) 20 MG TAB PO SCH (17:24)
[2019-10-22] MEDS: clonazePAM TAB(*) 1 MG PO PRN (23:38)
[2019-10-23] MEDS: Levothyroxine TAB* 75 MCG TAB PO SCH (05:40)
[2019-10-23 06:49] LABS: BUN/Creatinine Ratio 27.9 (8-20); Calcium 8.9 mg/dL (8.6-10.3); EGFR African American 105.7 (>60); EGFR Non-African American 87.4 (>60); Potassium 3.9 mmol/L (3.5-5.0)
--- NOTE | 2019-10-23 08:47 | PN ---
Progress Note - Progress Note Date of Service: 10/23/19 SOAP: Subjective: CC: Group B strep bacteremia HPI: Ms. Traylor is a 64 yo female with PMH significant for COPD, hypothryroidism, left breast cancer s/p mastectomy, , A fib, right brachial plexopathy, chronic left UE lymphedema, D CHF, hyponatremia, hodgkin's lumphoma, and pulmonary HTN; who presented to the emergency room with complaints of SOB and was found to have group B strep bacteremia. Denies fever, chills, cough, joint/ back pain, nausea, vomiting, diarrhea, or urinary symptoms. Edema in left UE has "resolved" and is at her reported baseline. She notes that the right hand is more edematous today. Objective: Vital Signs - 8 hr 10/23/19 10/23/19 10/23/19 01:39 03:15 07:15 Temperature 97.4 F 98.3 F Pulse Rate 74 82 Respiratory 16 18 20 Rate Blood Pressure 128/44 120/57 (mmHg) O2 Sat by Pulse 100 98 Oximetry Physical Exam: General: NAD, sitting up in a chair HEENT: Moist MM Cardiovascular: Heart rate regular, systolic murmur heard best at the left upper sternal border Respiratory: Lung sounds clear, diminished in bases Abdominal: Bowel sounds present; ABD soft, non tender, non distended MSK: Left UE edema. Edema in the right hand and fingers. No tenderness with palpation of the neck, back, or spine Skin: No rash on exposed skin Laboratory Results - last 24 hr 10/23/19 06:04 Sodium 139 Potassium 3.9 Chloride 98 L Carbon Dioxide 36 H Anion Gap 5 BUN 19 Creatinine 0.68 Est GFR ( Amer) 105.7 Est GFR (Non-Af Amer) 87.4 BUN/Creatinine Ratio 27.9 H Glucose 93 Calcium 8.9 Microbiology 10/09/19 08:42 Aerobic Blood Culture - Final Blood Venous No Growth Day 5 Anaerobic Blood Culture - Final No Growth Day 5 10/08/19 10:00 Aerobic Blood Culture - Final Blood Venous Strep Agalactiae - (Group B) Anaerobic Blood Culture - Final Strep Agalactiae - (Group B) 10/08/19 11:50 Urine Culture - Final Urine Escherichia Coli Assessment: 1. Bacteremia, group B strep. Initial blood cultures with 2/2 bottles positive for group B strep and repeat cultures with no growth to date. Has a pacemaker. She had a TTE showing severe (increased from previous) and no signs of vegetation. Denies back pain, no signs of cellulitis, no other prosthetic material. Afebrile and no leukocytosis. CRP is trending down. SUSSY with right ventricle pacer wire; no thrombus in atrial cavity or appendage; no vegetations seen on PV, TV, or MV; AV with stalk like calcified fixed vegetation on the aortic aspect; moderate to severe . Concern for infective endocarditis and no signs of cardiac device infection. 2. History of left breast cancer. S/P left mastectomy with chronic left UE lymphedema. 3. COPD. No sign of COPD exacerbation at this time. 4. Clindamycin, PCN, and Levaquin allergies. Plan: Continue Ceftriaxone, day 15/42 of ABX. Will need to have a PICC line placed. Consider cardiology consult. Weekly labs while on IV ABX: CBC, CMP, CRP. Followup with ID outpatient. She will need to have a repeat echo near the end of the ABX course.
[2019-10-23] MEDS: Ipratropium HFA INHALER(NF) (ALTERNATIVE = NEBS) INH PRN ×2 (09:46→15:49)
[2019-10-23 09:48] LABS: Magnesium 1.8 mg/dL (1.9-2.7)
[2019-10-23] MEDS: oxyCODONE/Acetamin 5/325 MG* TAB PO PRN ×3 (10:13→19:46)
[2019-10-23] MEDS: Furosemide IV* 10 MG/ML VIAL (40 MG) IV SCH (10:15)
[2019-10-23] MEDS: cefTRIAXone(*) 2 GM in NS 0.9% 100 ML* 100 ML IVPB SCH (10:15)
[2019-10-23] MEDS: Polyethylene Glycol 3350* 17 GM PACKET PO SCH (10:16)
[2019-10-23] MEDS: Famotidine TAB* 20 MG PO SCH ×2 (10:17→19:38)
[2019-10-23] MEDS: Dofetilide CAP* 250 MCG PO SCH ×2 (10:18→20:27)
[2019-10-23] MEDS: Metoprolol Tartrate TAB* 25 MG PO SCH ×2 (10:18→20:27)
[2019-10-23] MEDS: Nystatin TOP POWDER* 15 GM BTL TOPICAL SCH (10:25)
[2019-10-23] MEDS ORDERED: Magnesium Sulfate 2 GM IV* 2 GM/50 ML BAG IVPB ONE (11:12)
--- NOTE | 2019-10-23 16:15 | PN ---
Subjective Date of Service: 10/23/19 Interval History: No SOB, walking around unit, no cough, no CP Objective Active Medications: Albuterol (Ventolin Hfa Inhaler*) 2 puff INH Q6H PRN PRN Reason: SOB/WHEEZING Last Admin: 10/18/19 10:26 Dose: 2 puff Clonazepam (Klonopin Tab(*)) 1 mg PO BEDTIME PRN PRN Reason: ANXIETY Last Admin: 10/22/19 23:38 Dose: 1 mg Dofetilide (Tikosyn Cap*) 250 mcg PO Q12H [facility] Last Admin: 10/23/19 10:18 Dose: 250 mcg Famotidine (Pepcid Tab*) 20 mg PO BID [facility] Last Admin: 10/23/19 10:17 Dose: 20 mg Guaifenesin/Dextromethorphan (Robitussin Dm 100 Mg/10 Mg In 5 Ml) 10 ml PO Q4H PRN PRN Reason: COUGH Last Admin: 10/09/19 13:16 Dose: 10 ml Ceftriaxone Sodium 2 gm/ (Sodium Chloride) 100 mls @ 200 mls/hr IVPB DAILY [facility] Last Admin: 10/23/19 10:15 Dose: 200 mls/hr Ipratropium [place] (Atrovent Hfa Inhaler(Nf)) 2 puff INH Q6H PRN PRN Reason: SOB/WHEEZING Last Admin: 10/23/19 15:49 Dose: 2 puff Levothyroxine Sodium (Synthroid Tab*) 75 mcg PO DAILY@0600 [facility] Last Admin: 10/23/19 05:40 Dose: 75 mcg Magnesium Hydroxide (Milk Of Magnesia Liq*) 30 ml PO Q6H PRN PRN Reason: CONSTIPATION Last Admin: 10/12/19 22:00 Dose: 30 ml Metoprolol Tartrate (Lopressor Tab*) 25 mg PO BID [facility] Last Admin: 10/23/19 10:18 Dose: 25 mg Nystatin (Nystatin Top Powder*) 1 applic TOPICAL BID [facility] Last Admin: 10/23/19 10:25 Dose: 1 applic Oxycodone/Acetaminophen (Percocet 5/325 Tab*) 1 tab PO Q4H PRN PRN Reason: PAIN - MODERATE Last Admin: 10/23/19 14:48 Dose: 1 tab Polyethylene Glycol/Electrolytes (Miralax (17 Gm Dose Nii)) 17 gm PO DAILY [facility] Last Admin: 10/23/19 10:16 Dose: Not Given Rivaroxaban (Xarelto(*)) 20 mg PO DAILY@1700 [facility] Last Admin: 10/22/19 17:24 Dose: 20 mg Throat Lozenges (Chloraseptic Soila*) 1 soila PO Q2H PRN PRN Reason: THROAT DISCOMFORT Torsemide (Demadex*) 20 mg PO DAILY [facility] Vital Signs - 8 hr 10/23/19 10/23/19 10/23/19 09:47 10:13 12:06 Pulse Rate 82 Respiratory 15 18 20 Rate O2 Sat by Pulse 97 Oximetry 10/23/19 10/23/19 14:48 15:49 Pulse Rate 80 Respiratory 18 15 Rate O2 Sat by Pulse 97 Oximetry Oxygen Devices in Use Now: None Appearance: sittingin chair, NAD Eyes: No Scleral Icterus, PERRLA Ears/Nose/Mouth/Throat: NL Teeth, Lips, Gums, Clear Oropharnyx Neck: NL Appearance and Movements; NL JVP, Trachea Midline Respiratory: Symmetrical Chest Expansion and Respiratory Effort, Clear to Auscultation Cardiovascular: RRR Abdominal: NL Sounds; No Tenderness; No Distention, No Hepatosplenomegaly Lymphatic: No Cervical Adenopathy Extremities: - - left arm 2+ edema, right hand tense edema, right leg 1+ edema Neurological: Alert and Oriented x 3 Result Diagrams: 10/18/19 09:20 10/23/19 06:04 Microbiology and Other Data: Microbiology 10/09/19 08:42 Aerobic Blood Culture - Preliminary Blood Venous No Growth Day 2 Anaerobic Blood Culture - Preliminary No Growth Day 2 10/08/19 10:00 Aerobic Blood Culture - Final Blood Venous Strep Agalactiae - (Group B) Anaerobic Blood Culture - Final Strep Agalactiae - (Group B) 10/08/19 11:50 Urine Culture - Final Urine Escherichia Coli Assess/Plan/Problems-Billing 64 yo F with a h/o COPD, hypothyroidism, afib and aortic stenosis who presented to the ER with c/o SOB was found to have pneumonia vs. pulmonary edema , worsening , and strep bacteremia found with vegetation on aortic valve. - Patient Problems (1) Bacteremia due to group B Streptococcus Comment: 10/07 blood cultures positive GBS and cleared on 10/08 Continue ceftriaxone - 6 weeks total given vegetation seen on AV Veg on aortic valve-> unclear if sclerotic but will have to treat as if IE x 6 wks. looks less severe on SUSSY compared to TTE PICC placement pending Arrange o/p abx -Teaching for home infusion conducted today and pt was not able to self administer. She does not have help at home that can do this for her daily. She will be arranged to get daily abx at the infusion clinic Repeat TTE s/p 5-6 weeks abx to follow vegetation size/resolution Abx day (2) Infective endocarditis Comment: See above - 6 wks abx and repeat TTE Not clear it is infective but unable to rule out may need further evaluation in setting of worsening CHF and vegetation -> however unclear if PNA or CHF (and bacteremia) was really driving her SOB and presentation Place PICC discussed with care management who is arranging infusion clinic now that pt was unable to administer abx to self seen on inpatient training Abx day (3) CHF (congestive heart failure) Current Visit: Yes Status: Acute Code(s): I50.9 - HEART FAILURE, UNSPECIFIED SNOMED Code(s): 96187627 Comment: Likely related to worsening and infection (GBS bacteremia) Unclear contribution from AV veg Improving SOB on IV lasix - Transition to PO lasix 10/23 (4) Hyponatremia Comment: Likely secondary to SIADH. Na level is stable despite resuming diuresis. (5) RLL pneumonia Comment: Pt with possible RLL pneumonia though not completely clear. Radiation scarring on previous imaging confounding this dx CTX in setting of suspected infective endocarditis (6) Acute respiratory failure with hypoxia Comment: Resolved Likely related to pneumonia and CHF No home o2 requirement (7) QT prolongation Comment: avoid addition of qt-prolonging medications LBBB also, so tikosyn still acceptable, confirmed with cardiology (8) History of Hodgkin's lymphoma Comment: With chronic R loculated pleural effusion, residual R hand neuropathy and left arm lymphedema as a complication of treatment. Status and Disposition: PICC placement and infusion center set up pending prior to discharge
[2019-10-23] MEDS: Rivaroxaban TAB(*) 20 MG TAB PO SCH (17:50)
[2019-10-23] MEDS: clonazePAM TAB(*) 1 MG PO PRN (23:46)
[2019-10-24] MEDS: Levothyroxine TAB* 75 MCG TAB PO SCH (05:47)
[2019-10-24] MEDS: Polyethylene Glycol 3350* 17 GM PACKET PO SCH (07:56)
[2019-10-24] MEDS: oxyCODONE/Acetamin 5/325 MG* TAB PO PRN ×2 (07:57→13:49)
[2019-10-24] MEDS: Dofetilide CAP* 250 MCG PO SCH (07:57)
[2019-10-24] MEDS: Famotidine TAB* 20 MG PO SCH (07:57)
[2019-10-24] MEDS: Metoprolol Tartrate TAB* 25 MG PO SCH (07:57)
[2019-10-24] MEDS: Ipratropium HFA INHALER(NF) (ALTERNATIVE = NEBS) INH PRN (08:04)
[2019-10-24] MEDS: cefTRIAXone(*) 2 GM in NS 0.9% 100 ML* 100 ML IVPB SCH (08:21)
[2019-10-24] MEDS ORDERED: Torsemide TAB* 20 MG PO SCH (09:00)
--- NOTE | 2019-10-24 10:35 | PN ---
Progress Note - Progress Note Date of Service: 10/24/19 SOAP: Subjective: CC: Group B strep bacteremia and suspected AV endocarditis HPI: Ms. Traylor is a 64 yo female with PMH significant for COPD, hypothryroidism, left breast cancer s/p mastectomy, , A fib, right brachial plexopathy, chronic left UE lymphedema, D CHF, hyponatremia, hodgkin's lumphoma, and pulmonary HTN; who presented to the emergency room with complaints of SOB and was found to have group B strep bacteremia. Denies fever, chills, cough, joint/ back pain, nausea, vomiting, diarrhea, or urinary symptoms. Edema in left UE has "resolved" and is at her reported baseline. She notes that the right hand continues to be more edematous today. She is anxious for discharge home. Objective: Vital Signs - 8 hr 10/24/19 10/24/19 10/24/19 03:03 07:15 07:29 Temperature 97.0 F 97.6 F Pulse Rate 75 82 Respiratory 18 16 16 Rate Blood Pressure 123/66 132/65 (mmHg) O2 Sat by Pulse 97 99 99 Oximetry 10/24/19 10/24/19 10/24/19 07:57 08:06 09:28 Temperature Pulse Rate 89 Respiratory 20 14 20 Rate Blood Pressure (mmHg) O2 Sat by Pulse 91 Oximetry Physical Exam: General: NAD, sitting up in a chair HEENT: Moist MM Cardiovascular: Heart rate regular, systolic murmur, grade 3/9 - heard best at the left upper sternal border Respiratory: Lung sounds clear, diminished in bases Abdominal: Bowel sounds present; ABD soft, non tender, non distended MSK: Left UE edema. Edema in the right hand and fingers Skin: No rash on exposed skin Laboratory Tests 10/18/19 10/18/19 10/23/19 07:07 09:20 06:04 WBC 6.7 Hgb 12.8 Hct 39 Plt Count 330 Sodium 139 Potassium 3.9 Chloride 98 L Carbon Dioxide 36 H BUN 19 Creatinine 0.68 Glucose 93 C-Reactive Protein 40.00 H Microbiology 10/09/19 08:42 Aerobic Blood Culture - Final Blood Venous No Growth Day 5 Anaerobic Blood Culture - Final No Growth Day 5 10/08/19 10:00 Aerobic Blood Culture - Final Blood Venous Strep Agalactiae - (Group B) Anaerobic Blood Culture - Final Strep Agalactiae - (Group B) 10/08/19 11:50 Urine Culture - Final Urine Escherichia Coli Assessment: 1. Bacteremia, group B strep and suspected infective AV endocarditis. Initial blood cultures with 2/2 bottles positive for group B strep and repeat cultures with no growth to date. Has a pacemaker. She had a TTE showing severe ( increased from previous) and no signs of vegetation. Denies back pain, no signs of cellulitis, no other prosthetic material. Afebrile and no leukocytosis. CRP is trending down. SUSSY with right ventricle pacer wire; no thrombus in atrial cavity or appendage; no vegetations seen on PV, TV, or MV; AV with stalk like calcified fixed vegetation on the aortic aspect; moderate to severe . Concern for infective endocarditis and no signs of cardiac device infection. 2. History of left breast cancer. S/P left mastectomy with chronic left UE lymphedema. 3. COPD. No sign of COPD exacerbation at this time. 4. Clindamycin, PCN, and Levaquin allergies. Plan: Continue Ceftriaxone, day of ABX. Midline has been placed. Will add to CRP to yesterday's labs. DISCHARGE PLAN: Ceftriaxone 2gm IV daily in the outpatient infusion center. Weekly labs while on IV ABX: CBC, CMP, CRP. Followup with ID outpatient, telemed visit ok or can see while in infusion center in 1-2 weeks. She will need to have a repeat echo near the end of the ABX course. 25 minutes floor time: >50% spent with the patient discussing IV ABX, followup and when to call the office (rash, fevers, diarrhea).
[2019-10-24 14:26] VITALS: BP 130/46
[2019-10-24 14:52] LABS: C Reactive Protein 17.09 mg/L (<8.01)
--- NOTE | 2019-10-24 15:06 | DS ---
CC: Dr. Chirinos; Dr. Rose; Dr. Aurelio Banegas* DISCHARGE SUMMARY: DATE OF ADMISSION: 10/08/19 DATE OF DISCHARGE: 10/24/19 PRIMARY CARE PHYSICIAN: Dr. Chirinos. COMPUTER ASSISTANT: Dr. Rose. INFECTIOUS DISEASES: Dr. Aurelio Banegas. PRINCIPAL DISCHARGE DIAGNOSES: 1. Infected endocarditis. 2. Group B streptococcus bacteremia. 3. Severe aortic stenosis. 4. Decompensated heart failure. 5. Community acquired pneumonia. 6. Hyponatremia. SECONDARY DISCHARGE DIAGNOSES: 1. Atrial fibrillation. 2. History of breast cancer. 3. Chronic obstructive pulmonary disease. 4. Lymphedema. MEDICATIONS FOR DISCHARGE: 1. Synthroid 75 mcg daily. 2. Metoprolol tartrate 25 mg b.i.d. 3. Calcium/magnesium/vitamin D 2 tabs b.i.d. 4. Ascorbic acid 1000 mg daily. 5. Magnesium oxide 400 mg daily. 6. Albuterol HFA 2 puffs inhaled q.6 p.r.n. wheezing. 7. Tikosyn 250 mcg b.i.d. 8. Mucinex 600 mg b.i.d. 9. Xarelto 20 mg daily. 10. Ipratropium 17 mcg daily q.i.d. p.r.n. wheezing. 11. Torsemide 20 mg daily. 12. Ceftriaxone 2 g IV daily. 13. Clonazepam 1 mg q.h.s. p.r.n. insomnia. 14. Percocet 1 tab q.6 hours p.r.n. pain. 15. Ranitidine 150 mg daily. PHYSICAL EXAMINATION AT THE TIME OF DISCHARGE: Temperature 97.6, heart rate 82 , respiratory rate 16, pulse ox 99% on room air, blood pressure 132/65. General : Alert, well-appearing woman, in no distress, sitting up in the chair. She is able to speak in full sentences without dyspnea. HEENT: Pupils equal, round, reactive to light. Oral mucosa is moist. Neck: No JVP or adenopathy. Chest: She is in a regular rate and rhythm with a harsh systolic murmur throughout. Her lungs are clear bilaterally except for some crackles in the right base. Her right upper extremity is significant for tight skin in the right hand with Raynaud's phenomenon in the fingers and sclerotic skin changes. Her left upper extremity has mild swelling, but is markedly improved. Her abdomen is obese, soft, nontender, nondistended. Her right upper extremity has a midline in place and her lower extremities have no edema. Neurologic: She is alert and oriented. Her gait is normal. Her strength is 5/5 in all extremities. PERTINENT STUDIES ON THIS HOSPITALIZATION: A transesophageal echocardiogram from 10/17/19 showed EF of 60% to 65%, mild to moderate mitral valve regurgitation with multiple jets and on the aortic valve, there is a stock-like calcified thick vegetation on the aortic aspect just distal to the right coronary cusp, appears on long axis, approximately 1 mm x 3 mm. This appears more consistent with sclerotic lesion than a vegetation, but cannot rule out entirely. The findings are consistent with moderate to severe stenosis. There is moderate to severe tricuspid regurgitation and pulmonary artery pressure is severely increased, estimated to be 75 mmHg. An upper extremity venous Doppler study on 10/22/19 showed no evidence for right upper extremity DVT. CONSULTATIONS DURING THIS HOSPITALIZATION: 1. Dr. Dawson from Gastroenterology. 2. Dr. Ten Fuentes from Cardiology. 3. Dr. Banegas from Infectious Diseases. HOSPITAL COURSE BY PROBLEM: 1. Infected endocarditis. A transesophageal echocardiogram confirmed our suspicion given her worsening aortic valve function on a transthoracic echocardiogram of infected endocarditis. While I could not definitively say that this is a vegetation over a sclerotic lesion, it was determined that the benefit of treating empirically for endocarditis outweighed the risk, so she will receive 42 days total of IV antibiotic. She has a midline in the right upper extremity because the PICC was unable to be placed. She needs 25 more days of IV antibiotics in the form of 2 g of ceftriaxone daily. She is unable to administer them herself, so she will come to the infusion center daily. 2. Group B streptococcus bacteremia. IV antibiotics as above. 3. Severe aortic stenosis. She required increased IV diuresis during this hospitalization. She continues to have elevated pressures in her echocardiogram and will continue with torsemide at home. She will follow up with Cardiology as an outpatient. I have made an appointment for her for next week. 4. Decompensated heart failure, likely secondary to worsening aortic stenosis. 5. Community acquired pneumonia. She was treated with ceftriaxone and azithromycin. COVID-19 was ruled out. I suspect this was the source of her streptococcus bacteremia. 6. Hyponatremia, likely related to syndrome of inappropriate antidiuretic hormone secretion. It resolved with fluid restriction. 7. Atrial fibrillation. She was continued on her Xarelto and Tikosyn. 8. History of breast cancer. She follows with Dr. Guaman for her surveillance. DISPOSITION: Ms. Traylor is being discharged to home with a midline and 25 more days of IV antibiotics indicated. CONDITION AT THE TIME OF DISCHARGE: Stable. ADDENDUM TO DISCHARGE SUMMARY: I spoke with Dr. Rose and confirmed that there is no indication for cardiothoracic surgery evaluation at this time in Ms Traylor. She will see Ms. Traylor in her office on 10/31/19 at 11:45 p.m., and I have communicated this appointment time with Ms. Traylor prior to discharge. [id number]/[facility] #: [id number]/[facility] #: [id number] SHRAVAN
--- NOTE | 2019-10-24 15:23 | DS ---
DISCHARGE SUMMARY: ADDENDUM: I spoke with Dr. Rose and confirmed that there is no indication for cardiothoracic surgery evaluation at this time in Ms Traylor. She will see Ms. Traylor in her office on 10/31/19 at 11:45 p.m., and I have communicated this appointment time with Ms. Traylor prior to discharge. [id number]/[facility] #: [id number] SHRAVAN
== END 2019-10-24 15:28 | disposition home health service (06) | DRG 720 ==
LOC: ED 08:31 → ICU 12:02 → MED 10-09 14:00 → ICU 10-10 00:04 → MED 10-10 15:21 → MEDTELE 10-11 18:39
PROVIDERS: ADMIT Internal Medicine; ATTEND Internal Medicine
PROC: 0DJ08ZZ Inspection of Upper Intestinal Tract, Via Natural or Artificial Opening Endoscopic (ICD-10-PCS; principal; 2019-10-18 13:00)
PROC: B246ZZ4 Ultrasonography of Right and Left Heart, Transesophageal (ICD-10-PCS; 2019-10-18 13:00)
PROC: 05HY33Z Insertion of Infusion Device into Upper Vein, Percutaneous Approach (ICD-10-PCS; 2019-10-23)
DX: A40.1 Sepsis due to streptococcus, group B (principal); J96.01 Acute respiratory failure with hypoxia; I33.0 Acute and subacute infective endocarditis; I50.33 Acute on chronic diastolic (congestive) heart failure; J18.9 Pneumonia, unspecified organism; E22.2 Syndrome of inappropriate secretion of antidiuretic hormone; J44.0 Chronic obstructive pulmonary disease with (acute) lower respiratory infection; N39.0 Urinary tract infection, site not specified; I27.20 Pulmonary hypertension, unspecified; I48.91 Unspecified atrial fibrillation; Z66 Do not resuscitate; E87.5 Hyperkalemia; I08.3 Combined rheumatic disorders of mitral, aortic and tricuspid valves; B96.20 Unspecified Escherichia coli [E. coli] as the cause of diseases classified elsewhere; R94.31 Abnormal electrocardiogram [ECG] [EKG]; E03.9 Hypothyroidism, unspecified; I89.0 Lymphedema, not elsewhere classified; I73.00 Raynaud's syndrome without gangrene; K44.9 Diaphragmatic hernia without obstruction or gangrene; Z85.72 Personal history of non-Hodgkin lymphomas; Z79.01 Long term (current) use of anticoagulants; Z79.891 Long term (current) use of opiate analgesic; Z79.51 Long term (current) use of inhaled steroids; Z79.899 Other long term (current) drug therapy; Z88.1 Allergy status to other antibiotic agents; Z88.0 Allergy status to penicillin; Z88.8 Allergy status to other drugs, medicaments and biological substances; Z85.3 Personal history of malignant neoplasm of breast; Z92.3 Personal history of irradiation; Z87.891 Personal history of nicotine dependence; Z95.0 Presence of cardiac pacemaker; Z80.0 Family history of malignant neoplasm of digestive organs
CPT/HCPCS: 36415; 71045; 80048; 80053; 81003; 81015; 82306; 82330; 82533; 82550; 82553; 83605; 83735; 83880; 83930; 83935; 83970; 84100; 84300; 84439; 84443; 84484; 85025; 85027; 85610; 85730; 86140; 87040; 87077; 87086; 87184; 87186; 87205; 87635; 93005; 93306; 93312; 93325; 94640; 96365; 99156; 99157; 99285; A9270-GY; C1751; C8929; J0610; J0692; J0696; J1100; J1240; J1940; J2250; J2310; J2405; J2704; J3010; J3475; J3480

== ENCOUNTER 2020-07-11 18:32 | Inpatient (IN) ==
[2020-07-11] MEDS ORDERED: Ipratropium HFA INHALER(NF) (ALTERNATIVE = NEBS) INH ONE (19:47)
[2020-07-11] MEDS ORDERED: SPIRIVA Respimat (tiotropium) 2.5 mcg/inh Inhaler INH ONE (20:00)
[2020-07-11 20:06] LABS: ABS Lymphocytes 0.3 10^3/ul (1.0-4.8); ABS Monocytes 0.5 10^3/ul (0-0.8); ABS Neutrophils 9.3 10^3/ul (1.5-7.7); Eosinophil % 0.1 %; Hematocrit 44 % (35-47); Hemoglobin 14.8 g/dL (12.0-16.0); Lymphocyte % 2.7 %; Mean Corpuscular HGB Conc 34 g/dL (31-36); Mean Corpuscular Hemoglobin 30 pg (27-31); Mean Corpuscular Volume 89 fL (80-97); Mean Platelet Volume 8.2 fL (7.4-10.4); Platelet Count 263 10^3/uL (150-450); Red Blood Count 4.89 10^6 /uL (3.70-4.87); Red Cell Distribution Width 15 % (10-15); White Blood Count 10.2 10^3/uL (3.5-10.8)
[2020-07-11 20:24] LABS: ALT 31 U/L (7-52); Albumin 3.9 g/dL (3.2-5.2); Albumin/Globulin Ratio 1.2 (1-3); Alkaline Phosphatase 55 U/L (34-104); BUN/Creatinine Ratio 31.7 (8-20); Blood Urea Nitrogen 26 mg/dL (6-24); CO2 Carbon Dioxide 40 mmol/L (22-32); Calcium 9.2 mg/dL (8.6-10.3); Chloride 70 mmol/L (101-111); EGFR African American 85.2 (>60); EGFR Non-African American 70.4 (>60); Globulin 3.2 g/dL (2-4); Glucose 153 mg/dL (70-100); Total Protein 7.1 g/dL (6.4-8.9)
[2020-07-11 20:27] LABS: Sodium 115 mmol/L (135-145)
[2020-07-11] MEDS ORDERED: Iodixanol (CONTRAST) 320 MG/ML 100 ML SDV IV ONE (20:55)
[2020-07-11 21:21] LABS: Anion Gap 5 mmol/L (2-11)
[2020-07-11] MEDS ORDERED: NS 0.9% 1000 ml BAG 1,000 ML IV SCH (21:45)
[2020-07-11] MEDS ORDERED: Albuterol HFA INHALER 8 gm MDI INH PRN (23:13)
[2020-07-12] MEDS: oxyCODONE/Acetamin 5/325 mg TAB PO PRN ×4 (01:55→23:01)
[2020-07-12] MEDS ORDERED: NS 0.9% 1000 ml BAG 1,000 ML IV SCH (02:00)
[2020-07-12] MEDS ORDERED: NS 0.9% 250 ml 250 ML IV ONE (04:08)
[2020-07-12 05:57] LABS: BUN/Creatinine Ratio 32.8 (8-20); EGFR African American 119.9 (>60); EGFR Non-African American 99.1 (>60); Potassium 3.2 mmol/L (3.5-5.0)
[2020-07-12] MEDS: SPIRIVA Respimat (tiotropium) 2.5 mcg/inh Inhaler INH SCH (07:38)
[2020-07-12] MEDS ORDERED: Potassium Chlor 20 meq TAB.ER PO ONE ×3 (07:59→10:14)
[2020-07-12 08:55] LABS: Magnesium 2.1 mg/dL (1.9-2.7)
[2020-07-12] MEDS ORDERED: KCL 10 MEQ/50 ML IVPREMIX 10 MEQ/50 ML BAG IV SCH (10:00)
[2020-07-12] MEDS: D5W 1000 ml BAG 1,000 ML IV SCH ×2 (10:22→19:20)
[2020-07-12 15:19] LABS: BUN/Creatinine Ratio 27.3 (8-20); Calcium 8.8 mg/dL (8.6-10.3); EGFR African American 109.4 (>60); EGFR Non-African American 90.5 (>60); Potassium 3.9 mmol/L (3.5-5.0)
[2020-07-12 22:29] LABS: BUN/Creatinine Ratio 28.8 (8-20); Calcium 8.8 mg/dL (8.6-10.3); EGFR African American 109.4 (>60); EGFR Non-African American 90.5 (>60); Potassium 4.3 mmol/L (3.5-5.0)
[2020-07-13 00:56] LABS: Potassium 4.3 mmol/L (3.5-5.0)
[2020-07-13 03:46] LABS: ABS Basophils 0.1 10^3/ul (0-0.2); ABS Lymphocytes 0.4 10^3/ul (1.0-4.8); ABS Monocytes 0.6 10^3/ul (0-0.8); ABS Neutrophils 5.1 10^3/ul (1.5-7.7); Eosinophil % 0.7 %; Hematocrit 49 % (35-47); Hemoglobin 16.1 g/dL (12.0-16.0); Lymphocyte % 5.6 %; Mean Corpuscular HGB Conc 33 g/dL (31-36); Mean Corpuscular Hemoglobin 30 pg (27-31); Mean Corpuscular Volume 90 fL (80-97); Mean Platelet Volume 7.6 fL (7.4-10.4); Platelet Count 246 10^3/uL (150-450); Red Blood Count 5.42 10^6 /uL (3.70-4.87); Red Cell Distribution Width 15 % (10-15); White Blood Count 6.3 10^3/uL (3.5-10.8)
[2020-07-13 04:02] LABS: BUN/Creatinine Ratio 29.5 (8-20); Calcium 8.6 mg/dL (8.6-10.3); EGFR African American 119.9 (>60); EGFR Non-African American 99.1 (>60); Magnesium 2.1 mg/dL (1.9-2.7); Potassium 4.1 mmol/L (3.5-5.0)
[2020-07-13] MEDS: SPIRIVA Respimat (tiotropium) 2.5 mcg/inh Inhaler INH SCH (07:57)
[2020-07-13] MEDS: oxyCODONE/Acetamin 5/325 mg TAB PO PRN ×3 (08:08→20:10)
[2020-07-13 08:54] LABS: BUN/Creatinine Ratio 28.8 (8-20); Calcium 9.1 mg/dL (8.6-10.3); EGFR African American 124.6 (>60); EGFR Non-African American 102.9 (>60); Potassium 4.3 mmol/L (3.5-5.0)
[2020-07-13 18:22] LABS: BUN/Creatinine Ratio 29.2 (8-20); Calcium 9.4 mg/dL (8.6-10.3); EGFR Non-African American 81.8 (>60)
[2020-07-13 18:26] LABS: Potassium 4.8 mmol/L (3.5-5.0)
[2020-07-14 04:54] LABS: ABS Lymphocytes 0.4 10^3/ul (1.0-4.8); ABS Monocytes 0.8 10^3/ul (0-0.8); ABS Neutrophils 4.2 10^3/ul (1.5-7.7); Eosinophil % 0.7 %; Hematocrit 46 % (35-47); Hemoglobin 14.9 g/dL (12.0-16.0); Mean Corpuscular HGB Conc 33 g/dL (31-36); Mean Corpuscular Hemoglobin 30 pg (27-31); Mean Corpuscular Volume 91 fL (80-97); Mean Platelet Volume 8.1 fL (7.4-10.4); Nucleated Red Blood Cells % 0.1; Platelet Count 271 10^3/uL (150-450); Red Blood Count 5.04 10^6 /uL (3.70-4.87); Red Cell Distribution Width 15 % (10-15); White Blood Count 5.5 10^3/uL (3.5-10.8)
[2020-07-14 05:11] LABS: BUN/Creatinine Ratio 31.8 (8-20); EGFR African American 109.4 (>60); EGFR Non-African American 90.5 (>60)
[2020-07-14 05:23] LABS: Potassium 4.7 mmol/L (3.5-5.0)
[2020-07-14] MEDS: oxyCODONE/Acetamin 5/325 mg TAB PO PRN ×3 (08:06→21:10)
[2020-07-14] MEDS: SPIRIVA Respimat (tiotropium) 2.5 mcg/inh Inhaler INH SCH (08:06)
[2020-07-15 05:29] LABS: Hematocrit 45 % (35-47); Hemoglobin 14.7 g/dL (12.0-16.0); Mean Corpuscular HGB Conc 33 g/dL (31-36); Mean Corpuscular Hemoglobin 30 pg (27-31); Mean Corpuscular Volume 91 fL (80-97); Mean Platelet Volume 7.3 fL (7.4-10.4); Platelet Count 248 10^3/uL (150-450); Red Blood Count 4.98 10^6 /uL (3.70-4.87); Red Cell Distribution Width 15 % (10-15); White Blood Count 5.4 10^3/uL (3.5-10.8)
[2020-07-15 05:44] LABS: BUN/Creatinine Ratio 31.8 (8-20); Calcium 8.8 mg/dL (8.6-10.3); EGFR African American 109.4 (>60); EGFR Non-African American 90.5 (>60); Magnesium 2.1 mg/dL (1.9-2.7); Potassium 4.3 mmol/L (3.5-5.0)
[2020-07-15] MEDS: oxyCODONE/Acetamin 5/325 mg TAB PO PRN ×3 (07:32→22:02)
[2020-07-15] MEDS: SPIRIVA Respimat (tiotropium) 2.5 mcg/inh Inhaler INH SCH (10:33)
[2020-07-16] MEDS: SPIRIVA Respimat (tiotropium) 2.5 mcg/inh Inhaler INH SCH (08:50)
[2020-07-16] MEDS: oxyCODONE/Acetamin 5/325 mg TAB PO PRN (09:42)
[2020-07-16 11:59] LABS: BUN/Creatinine Ratio 33.3 (8-20); EGFR African American 129.6 (>60); EGFR Non-African American 107.1 (>60); Potassium 4.3 mmol/L (3.5-5.0)
[2020-07-16 13:31] VITALS: BP 101/57
== END 2020-07-16 16:42 | disposition home or self-care (01) | DRG 425 ==
LOC: ED 18:32 → ICU 21:38 → MEDTELE 07-15 20:37
PROVIDERS: ADMIT Hospitalist; ATTEND Internal Medicine

== ENCOUNTER 2020-07-17 02:01 | Observation (INO) ==
[2020-07-17] MEDS ORDERED: Ipratropium HFA INHALER(NF) (ALTERNATIVE = NEBS) INH PRN (09:44)
[2020-07-17] MEDS ORDERED: Albuterol HFA INHALER 8 gm MDI INH PRN (09:44)
[2020-07-17 12:09] LABS: Calcium 9.8 mg/dL (8.6-10.3); EGFR African American 135.1 (>60); EGFR Non-African American 111.6 (>60); Potassium 4.8 mmol/L (3.5-5.0)
[2020-07-17] MEDS: oxyCODONE/Acetamin 5/325 mg TAB PO PRN (17:20)
[2020-07-18] MEDS: oxyCODONE/Acetamin 5/325 mg TAB PO PRN ×3 (03:53→20:37)
[2020-07-18 06:17] LABS: ABS Lymphocytes 0.4 10^3/ul (1.0-4.8); ABS Neutrophils 4.1 10^3/ul (1.5-7.7); Eosinophil % 0.4 %; Hematocrit 45 % (35-47); Hemoglobin 14.7 g/dL (12.0-16.0); Lymphocyte % 6.8 %; Mean Corpuscular HGB Conc 33 g/dL (31-36); Mean Corpuscular Hemoglobin 30 pg (27-31); Mean Corpuscular Volume 92 fL (80-97); Mean Platelet Volume 7.7 fL (7.4-10.4); Platelet Count 243 10^3/uL (150-450); Red Blood Count 4.93 10^6 /uL (3.70-4.87); Red Cell Distribution Width 15 % (10-15); White Blood Count 5.5 10^3/uL (3.5-10.8)
[2020-07-18 06:33] LABS: BUN/Creatinine Ratio 38.5 (8-20); Calcium 9.3 mg/dL (8.6-10.3); EGFR African American 144.1 (>60); EGFR Non-African American 119.1 (>60); Potassium 4.5 mmol/L (3.5-5.0)
[2020-07-18] MEDS: SPIRIVA Respimat (tiotropium) 2.5 mcg/inh Inhaler INH SCH ×2 (09:39→09:45)
[2020-07-19] MEDS: oxyCODONE/Acetamin 5/325 mg TAB PO PRN ×2 (04:33→10:45)
[2020-07-19 06:50] LABS: BUN/Creatinine Ratio 29.5 (8-20); EGFR African American 119.9 (>60); EGFR Non-African American 99.1 (>60); Potassium 4.6 mmol/L (3.5-5.0)
[2020-07-19] MEDS ORDERED: Perflutren Lipid Microsphere 3 ML VIAL ONE (08:59)
[2020-07-19] MEDS: SPIRIVA Respimat (tiotropium) 2.5 mcg/inh Inhaler INH SCH (10:46)
[2020-07-19 12:40] VITALS: BP 101/57
== END 2020-07-19 17:25 ==
LOC: ED 02:01 → MEDTELE 09:40 → INTOOBSV 09:40 → MEDTELE 07-18 22:40
PROVIDERS: ADMIT Internal Medicine; ATTEND Internal Medicine

== ENCOUNTER 2020-07-26 14:08 | Inpatient (IN) ==
[2020-07-26] MEDS ORDERED: Dexamethasone IV 4 MG/ML VIAL 1 ml VIAL IV SLOW PU ONE (14:47)
[2020-07-26] MEDS ORDERED: Albuterol/Ipratropium NEB.SOL (2.5/0.5 MG) 3 ML NEB.SOLN INH ONE (14:47)
[2020-07-26] MEDS ORDERED: Azithromycin 500 mg/250 ml NS 500 MG/250 ML BAG IVPB ONE (14:49)
[2020-07-26] MEDS ORDERED: Vancomycin 1,500 MG in NS 0.9% 250 ml 250 ML IVPB ONE (14:49)
[2020-07-26] MEDS ORDERED: Cefepime 2 GM in Dextrose 2 GM/50 ML BAG IV ONE (14:49)
[2020-07-26 15:49] LABS: ABS Lymphocytes 0.3 10^3/ul (1.0-4.8); ABS Monocytes 1.4 10^3/ul (0-0.8); ABS Neutrophils 4.3 10^3/ul (1.5-7.7); Eosinophil % 0.1 %; Hematocrit 47 % (35-47); Hemoglobin 15.1 g/dL (12.0-16.0); Lymphocyte % 5.2 %; Mean Corpuscular HGB Conc 32 g/dL (31-36); Mean Corpuscular Hemoglobin 30 pg (27-31); Mean Corpuscular Volume 93 fL (80-97); Mean Platelet Volume 8.4 fL (7.4-10.4); Platelet Count 262 10^3/uL (150-450); Red Blood Count 5.02 10^6 /uL (3.70-4.87); Red Cell Distribution Width 15 % (10-15)
[2020-07-26] MEDS ORDERED: Furosemide 40 mg/4 ml IV VIAL IV SLOW PU ONE (15:50)
[2020-07-26 16:10] LABS: Albumin 3.7 g/dL (3.2-5.2); Chloride 86 mmol/L (101-111); Sodium 138 mmol/L (135-145)
[2020-07-26 16:16] LABS: Influenza A Molecular Negative (Negative); Influenza B Molecular Negative (Negative)
[2020-07-26 16:17] LABS: ALT 33 U/L (7-52); Alkaline Phosphatase 85 U/L (34-104); Anion Gap 9 mmol/L (2-11); BUN/Creatinine Ratio 43.5 (8-20); Blood Urea Nitrogen 27 mg/dL (6-24); C Reactive Protein 63.65 mg/L (<8.01); CO2 Carbon Dioxide 43 mmol/L (22-32); EGFR African American 117.6 (>60); EGFR Non-African American 97.2 (>60); Globulin 3.7 g/dL (2-4); Glucose 143 mg/dL (70-100); Total Protein 7.4 g/dL (6.4-8.9)
[2020-07-26 16:17] LABS: Urine Appearance Clear; Urine Bilirubin Negative (Negative); Urine Blood 1+ (Negative); Urine Color Straw; Urine Glucose Negative (Negative); Urine Ketones Negative (Negative); Urine Nitrite Negative (Negative); Urine Protein Negative (Negative); Urine Specific Gravity 1.008 (1.010-1.030); Urine Urobilinogen Negative (Negative)
[2020-07-26 16:22] LABS: Troponin I 0.03 ng/mL (<0.03)
[2020-07-26 16:34] LABS: Urine Bacteria Absent (Absent); Urine Red Blood Cell Absent (Absent); Urine Squamous Epithelial Cell Present (Absent); Urine White Blood Cell Trace(0-5/hpf) (Absent)
[2020-07-26 16:48] LABS: INR 2.66 (0.82-1.09)
[2020-07-26 16:54] LABS: Ferritin 122.5 ng/mL (11-307)
[2020-07-26] MEDS ORDERED: Albuterol HFA INHALER 8 gm MDI INH PRN (17:46)
[2020-07-26] MEDS ORDERED: Vancomycin per Pharmacy 1 EA NOTE FOLLOW UP SCH (18:00)
[2020-07-26] MEDS ORDERED: Remdesivir 100 mg Vial 200 MG in NS 0.9% 250 ml 210 ML IV ONE (18:00)
[2020-07-26 19:38] LABS: AST Redraw 32 U/L (13-39)
[2020-07-26 19:45] LABS: Potassium Redraw 2.6 mmol/L (3.5-5.0); Troponin I 0.03 ng/mL (<0.03)
[2020-07-26] MEDS ORDERED: Lorazepam PYXIS KEY ONE (20:21)
[2020-07-26] MEDS ORDERED: Lorazepam PYXIS KEY PRN (20:22)
[2020-07-26] MEDS ORDERED: LORazepam 2 mg VIAL 1 ml IV PUSH ONE (20:22)
[2020-07-26] MEDS ORDERED: LORazepam 2 mg VIAL 1 ml ONE (20:22)
[2020-07-26] MEDS: KCL 20 MEQ/100 ML IVPREMIX 20 MEQ/100 ML BAG IV SCH ×2 (21:01→23:28)
[2020-07-26 21:11] LABS: Potassium 3.1 mmol/L (3.5-5.0)
[2020-07-26 21:18] LABS: Troponin I 0.03 ng/mL (<0.03)
[2020-07-26 21:28] LABS: LDH 257 U/L (140-271)
[2020-07-26] MEDS: Dexamethasone IV 4 MG/ML VIAL 1 ml VIAL IV SLOW PU SCH (21:35)
[2020-07-27] MEDS ORDERED: Metoprolol Tartrate 5 mg VIAL 5 ml VIAL (1 mg/ml) IV ONE (00:27)
[2020-07-27] MEDS ORDERED: LORazepam 2 mg VIAL 1 ml ONE (00:28)
[2020-07-27] MEDS ORDERED: Metoprolol Tartrate 5 mg VIAL 5 ml VIAL (1 mg/ml) ONE (00:28)
[2020-07-27] MEDS: Cefepime 2 GM in Dextrose 2 GM/50 ML BAG IV SCH ×3 (02:14→17:43)
[2020-07-27] MEDS ORDERED: LORazepam 2 mg VIAL 1 ml IV PUSH ONE (05:10)
[2020-07-27 05:18] LABS: Hematocrit 48 % (35-47); Hemoglobin 15.6 g/dL (12.0-16.0); Mean Corpuscular HGB Conc 33 g/dL (31-36); Mean Corpuscular Hemoglobin 30 pg (27-31); Mean Corpuscular Volume 92 fL (80-97); Mean Platelet Volume 8.4 fL (7.4-10.4); Platelet Count 245 10^3/uL (150-450); Red Blood Count 5.17 10^6 /uL (3.70-4.87); Red Cell Distribution Width 15 % (10-15); White Blood Count 4.1 10^3/uL (3.5-10.8)
[2020-07-27 05:37] LABS: BUN/Creatinine Ratio 46.6 (8-20); Blood Urea Nitrogen 27 mg/dL (6-24); Calcium 8.1 mg/dL (8.6-10.3); Chloride 90 mmol/L (101-111); Glucose 177 mg/dL (70-100); Magnesium 1.5 mg/dL (1.9-2.7); Sodium 141 mmol/L (135-145)
[2020-07-27 05:56] LABS: CO2 Carbon Dioxide 45 mmol/L (22-32); Troponin I 0.05 ng/mL (<0.03)
[2020-07-27 06:10] LABS: Anion Gap 6 mmol/L (2-11); Potassium 4.8 mmol/L (3.5-5.0)
[2020-07-27] MEDS: Pantoprazole VIAL 40 MG VIAL IV SCH (08:21)
[2020-07-27] MEDS: Dexamethasone IV 4 MG/ML VIAL 1 ml VIAL IV SLOW PU SCH ×2 (08:42→22:02)
[2020-07-27] MEDS: VANCOMYCIN 1250 MG IVPB SCH ×2 (08:43→21:44)
[2020-07-27] MEDS: acetaZOLAMIDE IV 250 MG in NS 0.9% 50 ML 50 ML IVPB SCH (12:24)
[2020-07-27] MEDS ORDERED: Magnesium Sulfate 2 gm BAG 2 GM/50 ML BAG IVPB ONE (16:58)
[2020-07-27] MEDS: Enoxaparin 80 MG/0.8 ML SYR SUBCUT SCH (18:29)
[2020-07-27] MEDS: Remdesivir 100 mg Vial 100 MG in NS 0.9% 250 ml 230 ML IV SCH (21:44)
[2020-07-28] MEDS: Cefepime 2 GM in Dextrose 2 GM/50 ML BAG IV SCH ×3 (03:26→17:43)
[2020-07-28] MEDS: Enoxaparin 80 MG/0.8 ML SYR SUBCUT SCH ×2 (05:03→18:04)
[2020-07-28 06:02] LABS: Hematocrit 45 % (35-47); Mean Corpuscular HGB Conc 31 g/dL (31-36); Mean Corpuscular Hemoglobin 29 pg (27-31); Mean Corpuscular Volume 95 fL (80-97); Platelet Count 218 10^3/uL (150-450); Red Blood Count 4.77 10^6 /uL (3.70-4.87); Red Cell Distribution Width 16 % (10-15); White Blood Count 6.4 10^3/uL (3.5-10.8)
[2020-07-28 06:17] LABS: BUN/Creatinine Ratio 48.4 (8-20); Calcium 7.3 mg/dL (8.6-10.3); EGFR African American 117.6 (>60); EGFR Non-African American 97.2 (>60); Magnesium 1.9 mg/dL (1.9-2.7); Potassium 3.5 mmol/L (3.5-5.0)
[2020-07-28] MEDS ORDERED: Vancomycin Trough Check NOTE FOLLOW UP ONE (08:30)
[2020-07-28] MEDS ORDERED: Furosemide 40 mg/4 ml IV VIAL IV ONE (09:00)
[2020-07-28] MEDS ORDERED: Metoprolol Tartrate 5 mg VIAL 5 ml VIAL (1 mg/ml) IV ONE (09:49)
[2020-07-28] MEDS ORDERED: acetaZOLAMIDE IV 250 MG in NS 0.9% 50 ML 50 ML IVPB ONE (09:52)
[2020-07-28] MEDS ORDERED: KCL 20 MEQ/100 ML IVPREMIX 20 MEQ/100 ML BAG IV ONE (09:53)
[2020-07-28] MEDS ORDERED: Furosemide 100 mg/10 ml IV VIAL IV ONE (10:00)
[2020-07-28] MEDS: acetaZOLAMIDE IV 250 MG in NS 0.9% 50 ML 50 ML IVPB SCH (10:32)
[2020-07-28] MEDS: Dexamethasone IV 4 MG/ML VIAL 1 ml VIAL IV SLOW PU SCH ×2 (10:43→19:57)
[2020-07-28] MEDS: Pantoprazole VIAL 40 MG VIAL IV SCH (10:44)
[2020-07-28] MEDS: VANCOMYCIN 1250 MG IVPB SCH (11:28)
[2020-07-28] MEDS: Vancomycin 750 MG in NS 0.9% 250 ML IVPB SCH (15:02)
[2020-07-28] MEDS ORDERED: Lorazepam PYXIS KEY PRN (18:22)
[2020-07-28] MEDS ORDERED: LORazepam 2 mg VIAL 1 ml ONE (18:25)
[2020-07-28] MEDS: LORazepam 2 mg VIAL 1 ml IV PUSH PRN (18:28)
[2020-07-28] MEDS: Remdesivir 100 mg Vial 100 MG in NS 0.9% 250 ml 230 ML IV SCH (21:02)
[2020-07-29] MEDS: Morphine 2 MG/ML SYRINGE IV PRN ×4 (00:02→15:49)
[2020-07-29] MEDS: LORazepam 2 mg VIAL 1 ml IV PUSH PRN ×3 (00:19→20:19)
[2020-07-29] MEDS: Cefepime 2 GM in Dextrose 2 GM/50 ML BAG IV SCH ×3 (01:30→18:36)
[2020-07-29] MEDS: Vancomycin 750 MG in NS 0.9% 250 ML IVPB SCH ×2 (02:45→17:08)
[2020-07-29] MEDS ORDERED: NS 0.9% 250 ml 250 ML IV ONE (03:03)
[2020-07-29 04:16] LABS: Hematocrit 23 % (35-47); Hemoglobin 6.8 g/dL (12.0-16.0); Mean Corpuscular HGB Conc 29 g/dL (31-36); Mean Corpuscular Hemoglobin 30 pg (27-31); Mean Corpuscular Volume 102 fL (80-97); Mean Platelet Volume 9.1 fL (7.4-10.4); Platelet Count 101 10^3/uL (150-450); Red Blood Count 2.29 10^6 /uL (3.70-4.87); Red Cell Distribution Width 16 % (10-15)
[2020-07-29 04:21] LABS: INR 3.28 (0.82-1.09)
[2020-07-29 05:28] LABS: ABS Lymphocytes 0.1 10^3/ul (1.0-4.8); ABS Monocytes 0.7 10^3/ul (0-0.8); ABS Neutrophils 8.2 10^3/ul (1.5-7.7); Hematocrit 46 % (35-47); Hemoglobin 14.2 g/dL (12.0-16.0); Mean Corpuscular HGB Conc 31 g/dL (31-36); Mean Corpuscular Hemoglobin 29 pg (27-31); Mean Corpuscular Volume 95 fL (80-97); Mean Platelet Volume 9.4 fL (7.4-10.4); Nucleated Red Blood Cells % 0.2; Platelet Count 214 10^3/uL (150-450); Red Blood Count 4.84 10^6 /uL (3.70-4.87); Red Cell Distribution Width 16 % (10-15)
[2020-07-29 05:39] LABS: Albumin 2.7 g/dL (3.2-5.2); Albumin/Globulin Ratio 0.9 (1-3); BUN/Creatinine Ratio 52.9 (8-20); Calcium 7.2 mg/dL (8.6-10.3); EGFR African American 102.3 (>60); EGFR Non-African American 84.5 (>60); Globulin 2.9 g/dL (2-4); Potassium 3.4 mmol/L (3.5-5.0); Total Bilirubin 0.5 mg/dL (0.2-1.0); Total Protein 5.6 g/dL (6.4-8.9)
[2020-07-29] MEDS: Enoxaparin 80 MG/0.8 ML SYR SUBCUT SCH (08:52)
[2020-07-29] MEDS: Dexamethasone IV 4 MG/ML VIAL 1 ml VIAL IV SLOW PU SCH (09:20)
[2020-07-29] MEDS: Pantoprazole VIAL 40 MG VIAL IV SCH (09:21)
[2020-07-29] MEDS: acetaZOLAMIDE IV 250 MG in NS 0.9% 50 ML 50 ML IVPB SCH (10:12)
[2020-07-29 10:40] LABS: Magnesium 1.9 mg/dL (1.9-2.7); Phosphorus 2.9 mg/dL (2.5-5.0)
[2020-07-29] MEDS: KCL 20 MEQ/100 ML IVPREMIX 20 MEQ/100 ML BAG IV SCH ×2 (10:46→12:57)
[2020-07-29] MEDS ORDERED: Diltiazem (ADVAN VIAL) 100 MG/100 ML ADDV.BAG IV SCH (13:00)
[2020-07-29] MEDS ORDERED: Vancomycin Trough Check NOTE FOLLOW UP ONE (14:30)
[2020-07-29 20:16] VITALS: BP 112/65
[2020-07-29] MEDS ORDERED: Vancomycin 500 MG in NS 0.9% 250 ML IVPB SCH (21:00)
[2020-07-29] MEDS ORDERED: Lorazepam PYXIS KEY PRN (21:08)
[2020-07-29] MEDS ORDERED: LORazepam 2 mg VIAL 1 ml IV PUSH ONE (21:08)
[2020-07-29] MEDS ORDERED: Morphine 2 MG/ML SYRINGE IV ONE (21:15)
[2020-07-31] MEDS ORDERED: Vancomycin Trough Check NOTE FOLLOW UP ONE (08:30)
== END 2020-07-29 20:49 | disposition expired | DRG 137 ==
LOC: ED 14:08 → ICU 16:54
PROVIDERS: ADMIT Internal Medicine; ATTEND Student in an Organized Health Care Education/Training Program